=== PATIENT | female | born 1955 | race Caucasian/White ===

== ENCOUNTER → 2020-07-24 | Outpatient (CLI) | payer MEDICARE, BC, SELFPAY | END | disposition home or self-care (01) | PROVIDERS: PCP Internal Medicine; Referring Provider Otolaryngology Otolaryngology/Facial Plastic Surgery; Visit Provider Otolaryngology Otolaryngology/Facial Plastic Surgery | DX: J32.9 Chronic sinusitis, unspecified (principal) | CPT/HCPCS: 87070; 87077; 87186; 87205 ==

== ENCOUNTER → 2020-07-29 08:18 | Outpatient (CLI) | payer MEDICARE, BC, SELFPAY ==
[2020-07-29 10:43] LABS: ALB/GLOB Ratio 1.2 RATIO (0.9-2.4); AST(SGOT) 19 U/L (15-37); Alanine Aminotransfer ALT/SGPT 24 U/L (13-56); Albumin, Serum 3.6 g/dL (3.2-5.0); Alkaline Phosphatase 61 U/L (45-117); Anion Gap 6 (5-15); BUN 11 mg/dL (7-18); BUN/Creat Ratio 18.3 RATIO (10-20); Calcium,Total 9.1 mg/dL (8.5-10.1); Chloride 106 mmol/L (98-107); Cholesterol 173 mg/dL (200); EST Glomerular Filtration Rate 106 mL/min (>60); Est Glom Filt Rate - Afr Amer 129 mL/min (>60); Globulin 3.1 g/dL (2.2-4.2); Glucose 99 mg/dL (74-106); High Density Lipoprotein 59 mg/dL; Potassium 4.2 mmol/L (3.5-5.1); Protein, Total 6.7 g/dL (6.4-8.2); Sodium Level 140 mmol/L (136-145); Thyroid Stim Hormone (TSH) 1.33 uIU/mL (0.358-3.74); Triglycerides 151 mg/dL; Very Low Density Lipoprotein 30 mg/dL (5-40)
[2020-07-29 10:52] LABS: Microalbumin,Random Urine 10.3 mg/L (NO RANGE EST.); Microalbumin:Creatinine Ratio 9.3 mg/g CRE (<30 mg/g CRE)
== END ==
PROVIDERS: PCP Family Medicine; Referring Provider Family Medicine; Visit Provider Family Medicine
DX: I10 Essential (primary) hypertension (principal); F41.9 Anxiety disorder, unspecified; E78.00 Pure hypercholesterolemia, unspecified
CPT/HCPCS: 36415; 80053; 80061; 82043; 82570; 84443

== ENCOUNTER → 2021-01-19 11:19 | Outpatient (CLI) | payer MEDICARE, BC, SELFPAY ==
[2021-01-19 14:54] LABS: Absolute Lymphocyte Count 1.38 X10^3/uL (0.83-4.51); Basophil# 0.05 X10^3/uL; Eosinophil# 0.18 X10^3/uL; Eosinophils% 3.6 % (0-5); Hematocrit 39.2 % (37-47); Hemoglobin 13.2 g/dL (12.0-15.0); Lymphocyte # 1.38 X10^3/ul (0.83-4.51); Lymphocyte % 27.7 % (19-41); Mean Corp Hgb Conc 33.7 g/dL (32-36); Mean Corpuscular Hgb 29.6 pg (27.0-32.0); Mean Corpuscular Volume 87.9 fL (81-99); Mean Platelet Vol. 10.8 fl (6.2-12.0); Monocyte# 0.38 X10^3/uL; Monocyte% 7.6 % (0-10); NRBC Flagged by Analyzer 0 % (0-5); Neutrophil # 2.98 X10^3/uL (2.7-7.7); Neutrophil % 59.9 % (47-70); Platelet Count 256 K/mm3 (150-450); RBC Distribution Width CV 13.2 % (11.6-14.6); RBC Distribution Width SD 42.9 fl (35.1-43.9); Red Blood Count 4.46 M/mm3 (4.2-5.4)
[2021-01-19 15:13] LABS: ALB/GLOB Ratio 1.2 RATIO (0.9-2.4); AST(SGOT) 18 U/L (15-37); Alanine Aminotransfer ALT/SGPT 23 U/L (13-56); Alkaline Phosphatase 64 U/L (45-117); Anion Gap 5 (5-15); BUN 12 mg/dL (7-18); BUN/Creat Ratio 19.1 RATIO (10-20); Calcium,Total 9.2 mg/dL (8.5-10.1); Chloride 105 mmol/L (98-107); Creatinine, Serum 0.63 mg/dL (0.55-1.02); EST Glomerular Filtration Rate 101 mL/min (>60); Est Glom Filt Rate - Afr Amer 122 mL/min (>60); Globulin 3.4 g/dL (2.2-4.2); Glucose 95 mg/dL (74-106); Potassium 3.9 mmol/L (3.5-5.1); Protein, Total 7.4 g/dL (6.4-8.2); Sodium Level 138 mmol/L (136-145); Thyroid Stim Hormone (TSH) 0.76 uIU/mL (0.358-3.74)
== END ==
PROVIDERS: PCP Family Medicine; Referring Provider Family Medicine; Visit Provider Family Medicine
DX: L63.9 Alopecia areata, unspecified (principal)
CPT/HCPCS: 36415; 80053; 84443; 85025

== ENCOUNTER 2021-03-17 07:41 | Outpatient (CLI) | payer MEDICARE, BC, SELFPAY ==
[2021-03-17 10:39] LABS: AST(SGOT) 20 U/L (15-37); Alanine Aminotransfer ALT/SGPT 24 U/L (13-56); Alkaline Phosphatase 65 U/L (45-117); Bilirubin, Direct 0.19 mg/dL (0.00-0.30); CPK Total, Creatine Kinase 90 U/L (26-192); Cholesterol 253 mg/dL (200); Globulin 3.4 g/dL (2.2-4.2); High Density Lipoprotein 75 mg/dL; Protein, Total 7.4 g/dL (6.4-8.2); Triglycerides 105 mg/dL; Very Low Density Lipoprotein 21 mg/dL (5-40)
== END 2021-03-17 23:59 | disposition short-term general hospital (02) ==
LOC: MTLAB 07:44
PROVIDERS: PCP Family Medicine; Referring Provider Family Medicine; Visit Provider Family Medicine
DX: M79.10 Myalgia, unspecified site (principal); E78.00 Pure hypercholesterolemia, unspecified
CPT/HCPCS: 36415; 80061; 80076; 82550

== ENCOUNTER → 2022-03-03 | Outpatient (CLI) | payer MEDICARE, BC, SELFPAY | END | disposition home or self-care (01) | PROVIDERS: PCP Family Medicine; Visit Provider Internal Medicine | DX: G47.30 Sleep apnea, unspecified (principal); G47.10 Hypersomnia, unspecified; R53.83 Other fatigue | CPT/HCPCS: 95810 ==

== ENCOUNTER 2024-05-10 12:17 | Emergency (ER) | payer MEDICARE, SELFPAY ==
[2024-05-10 12:19] VITALS: BP 186/96; PULSE 89; RESP 16; TEMP 36.2; O2SAT 98
[2024-05-10 13:00] VITALS: O2SAT 99
--- NOTE | 2024-05-10 13:18 | ED.VIS.FALL ---
HPI HPI - Fall History of Present Illness Chief Complaint: Fall Informant: patient and spouse/S.O. Occured/Mechanism Occurred: Today Mechanism/Context: Yes same level fall and Yes slip Usually ambulates: Without assistance Pain/Injury Pain Location: head Quality of Pain: Dull and Aching Current Severity: Mild Maximum Severity: Moderate Associated Symptoms Associated Symptoms: Negative for Parasthesias, Weakness, Loss of function, Inability to ambulate, Loss of consciousness or Amnesia Narrative Narrative: 68-year-old female history of anxiety. Was outside slipped on the ice fell backwards striking back of her head. No LOC. She is on no blood thinners not even aspirin. Denies any other complaints. Has a mild headache. No nausea. This occurred just over an hour ago. Prior similar symptoms: No Recent Illness/Hospitalization: No PFSH PFSH Allergy/AdvReac Type Severity Reaction Status Date / Time No Known Allergies Allergy Verified 05/10/24 12:19 Social History household members: spouse housing: house Smoking Status: Never smoker ROS ROS ED ROS Narrative Denies recent illness. Headache post fall. Denies nausea or vomiting. Constitutional Constitutional ED: Denies chills or fever(s) ENT ENT ED: Denies ear pain Cardiovascular Cardiovascular: Denies chest pain Respiratory/Chest Respiratory/Chest: Denies cough Gastrointestinal Gastrointestinal: Denies abdominal pain, nausea or vomiting Genitourinary Genitourinary ED: Denies dysuria or hematuria Musculoskeletal Musculoskeletal: Denies arthralgias, back pain or neck pain Integumentary Denies abscess or Abrasions Neurologic Neurologic: Reports headache(s) Psychiatric Psychiatric: Denies anxiety Endocrine Endocrinology: Denies polydipsia Hematologic/Lymphatic Hematologic/Lymphatic: Denies easy bleeding, easy bruising or lymphadenopathy Allergic/Immunologic Allergic/Immunologic ED: Denies mouth swelling, tongue swelling or urticaria EXAM Physical Exam Narrative Exam Narrative: Well-appearing 68-year-old female sitting upright in bed. at bedside. Vital signs are stable afebrile. She does not look septic toxic or any distress. H EENT exam pupils round reactive light. Extra motions are intact. No facial droop. Moist mucous membranes. No trauma to her face. Posterior scalp there is a half dollar sized hematoma. No laceration. No blood or bleeding. Neck nontender. Trachea midline. C-spine nontender. Back and thoracic and lumbar spine nontender no bruising. Chest wall and ribs nontender. Lungs clear equal and symmetrical bilaterally. Heart regular rhythm rate about 90 no murmur. Abdomen soft nontender. Pelvic girdle intact. Hips are nontender. No shortening or rotation. Normal reporting process consultant strength. Normal dorsi plantarflexion. Normal flexion extension both upper and lower extremities. Neurologically she is awake and alert no focal motor deficits. Answer questions following commands. GCS of 15. Const Vital Signs: 05/10/24 12:19 05/10/24 13:00 Temperature 97.1 F L Temperature Source Oral Pulse Rate 89 Respiratory Rate 16 Respiratory Effort Normal Non-Labored Respiratory Depth Normal Respiratory Pattern Normal Blood Pressure 186/96 H Blood Pressure Mean 126 Pulse Ox 98 99 Oxygen Delivery Method Room Air Room Air Positive well nourished and well developed; Negative for obese, cachectic, contractures or unkempt General Appearance ED: well developed and NAD; Negative for unkempt, cachectic or contractures Nutritional Appearance: Negative for cachectic or obese HEENT Reports normocephalic HEENT Narrative: Contusion posterior scalp size of a half dollar. No laceration. No blood or bleeding. Tender. trauma, contusion, hematoma and tenderness; Negative for atraumatic Eyes PERRL and EOMs intact bilaterally General Eye ED: Negative for pale conjunctiva or scleral icterus Neck full ROM, no lymphadenopathy and supple General: Negative for tenderness Chest Wall inspection of chest normal and palpation of chest normal Resp normal respiratory effort, no retractions and clear to auscultation bilaterally Effort and Inspection: Negative for pain with movement Auscultation: Negative for rales, rhonchi, wheezes, diminished lung sounds or other Cardio regular rate, regular rhythm, S1 normal heart sound, S2 normal heart sound and no murmurs Rate: Negative for bradycardia or tachycardic Rhythm: Negative for abnormal rhythm Bruits: Negative for other GI non-tender, non-distended and no masses Inspection: Negative for abdominal distention Auscultation: normoactive bowel sounds Palpation: soft; Negative for guarding or rebound tenderness present Back/Spine no CVA tenderness General Back: Negative for CVA tenderness Cervical Spine: Negative for cervical spine tenderness Lumbar Spine / Lower Back: Negative for lumbar spinal tenderness or paraspinal muscle tenderness Neuro oriented x3, CN's II-XII intact bilaterally, moves all extremities, no focal motor deficits and no sensory deficits noted [place] Coma Scale: document GCS findings Spontaneous Obeys Commands Oriented 15 Sensorium / Orientation: alert, oriented to person, oriented to place and oriented to time; Negative for orientation impaired, confused, lethargic or stuporous Motor Exam: strength 5/5 throughout Psych mental status grossly normal and thought process normal Appearance: Negative for unkempt Mood & Affect: anxious Skin Lesions: no lesions Rashes: no rashes Trauma: Negative for abrasion or laceration MDM MDM MDM Narrative Medical decision making narrative: 68-year-old female slipped and fell on the ice. She is neurologically intact. She is not on blood thinners. She had no LOC. However she does have a moderate-sized hematoma on her posterior scalp. She will get Tylenol for headache and I am going to obtain a plain CAT scan. She has no other injuries no other pain at home think she needs any other CAT scan or x-rays to be done. Repeat exam patient is doing well. We discussed her CAT scan results and she will be discharged home head injury instructions. History & Record Review Discussion w/independent historian: Patient and Family Additional record(s) reviewed:: Prior inpatient record, Prior outpatient record, Prior ED visit and Prior labs Radiography Diagnostic Testing: Clinical Impression(s) from Imaging Studies Brain CT 05/10/24 13:30 IMPRESSION: 1. No acute intracranial abnormalities are demonstrated. Reading Location: [place] [address] Discharge Plan Triage Chief Complaint: Fall ED Provider: Kartik Bello Dx/Rx/DC Orders Clinical Impression: Fall, Closed head injury Instructions: ED Head Injury (Adult) Primary Care Provider: Claudine Scott Referrals: Claudine Scott MD [Primary Care Provider] - 1 Week if not improving Activity Restrictions/Additional Instructions: Ice to your scalp to decrease the pain and swelling Tylenol for pain. You have a close head injury most likely a mild concussion. You may have some intermittent headaches. Dizziness. You may want to sleep more or have trouble sleeping. All those are postconcussion symptoms. Those should progressively get better and improve the next several weeks. If you would get a severe headache with vomiting you need to return for further evaluation. Print Language: Tongan Disposition Disposition: Home, Self Care
[2024-05-10] MEDS: Acetaminophen 500 MG Tablet 1000 MG PO (13:26)
--- NOTE | 2024-05-10 13:30 | CT_ITS ---
EXAM: BRAIN/HEAD WITHOUT CONTRAST CLINICAL HISTORY: Head trauma. COMPARISON: No relevant prior. TECHNIQUE: Contiguous axial scans of 3.75 mm slice thicknesses with sagittal and coronal reconstruction images. One or more dose reduction techniques were utilized (e.g., automated exposure control, adjustment of mA and/or kv according to patient size, use of iterative reconstruction technique). FINDINGS: Cerebrum: No intraparenchymal hemorrhage. No abnormal areas of encephalomalacia. No mass effect or midline shift. Fontana-white matter differentiation is normal. Ventricles and cisterns: Appropriate size for patient's age. Extra-axial fluid: Unremarkable. Posterior fossa: Unremarkable cerebellum. No abnormalities involving the brainstem. Paranasal sinuses: Normal. Vasculature: Atherosclerotic calcific disease in the carotid siphon. Mastoid air cells: Normal. Calvarium: Unremarkable. Soft tissues: Unremarkable. CT/Brain/Head without Contrast IMPRESSION: 1. No acute intracranial abnormalities are demonstrated. Reading Location: [place] [id number]
[2024-05-10 15:30] VITALS: BP 138/89; PULSE 78; RESP 16; TEMP 36.6; O2SAT 99
== END 2024-05-10 15:32 | disposition home or self-care (01) ==
PROVIDERS: Emergency Provider Emergency Medicine; PCP Internal Medicine; Visit Provider Emergency Medicine
DX: S09.90XA Unspecified injury of head, initial encounter (principal); F41.9 Anxiety disorder, unspecified; W00.0XXA Fall on same level due to ice and snow, initial encounter
CPT/HCPCS: 70450; 99283

== ENCOUNTER 2024-12-06 15:22 | Emergency (ER) | payer MEDICARE, SELFPAY ==
[2024-12-06 15:23] VITALS: BP 168/89; PULSE 60; RESP 22; TEMP 36.3; O2SAT 98; BMI 23.2
--- NOTE | 2024-12-06 15:39 | EDS_ITS ---
HPI History of Present Illness Chief Complaint: General Illness Informant: patient Onset/Context/Timing Onset: Days (9) Context: Gradual Onset Timing: Continuous Quality: Fatigue, weakness Location: Generalized Worsened by: Activity, exertion Relieved by: Nothing Narrative Narrative: Patient presents with increasing fatigue and weakness over the past 9 days. Patient states she went on a cruise with her sister. Patient states her sister was recently diagnosed with COVID-19. Patient states she has some upper respiratory congestion. Patient admits to some rhinorrhea. Patient denies any chest pain or shortness of breath. Patient admits to a slight cough. Patient states nothing makes her symptoms better. Patient states her symptoms are worse with activity and exertion. [facility] Medical History (Updated 12/06/24 @ 17:[address] Apolinar Finley DO) Hypercholesterolemia Home Medications ?Medication ?Instructions ?Recorded ?Last Taken ?Type azithromycin 250 mg tablet 250 mg PO DAILY #4 TABLETS 12/06/24 Unknown Rx cefdinir 300 mg capsule 300 mg PO BID #20 caps 12/06 Unknown Rx Allergy/AdvReac Type Severity Reaction Status Date / Time No Known Allergies Allergy Verified 12/06/24 15:23 Surgical History no surgical history no surgical history Social History household members: spouse housing: house Smoking Status: Never smoker ROS ROS ED Constitutional Constitutional ED: Denies chills or fever(s) Eyes Eyes: Denies blurry vision or change in vision ENT ENT ED: Reports rhinorrhea and sore throat Cardiovascular Cardiovascular: Denies chest pain or palpitations Respiratory/Chest Respiratory/Chest: Denies cough or dyspnea Gastrointestinal Gastrointestinal: Denies nausea or vomiting Genitourinary Genitourinary ED: Denies dysuria or hematuria Musculoskeletal Musculoskeletal: Denies back pain or neck pain Integumentary Denies abscess or rash Neurologic Neurologic: Reports headache(s); Denies weakness Allergic/Immunologic Allergic/Immunologic ED: Denies mouth swelling or urticaria EXAM Physical Exam Const Vital Signs: 12/06/24 15:23 12/06/24 15:35 Temperature 97.4 F L Temperature Source Temporal Pulse Rate 60 Respiratory Rate 22 H Respiratory Effort Normal Respiratory Pattern Normal Blood Pressure 168/89 H Blood Pressure Mean 115 Pulse Ox 98 Oxygen Delivery Method Room Air Positive well nourished and well developed General Appearance ED: well developed and NAD HEENT Reports moist mucous membranes HEENT Narrative: Oropharynx shows some mild postnasal drainage. There is no exudate noted on the tonsils. Neck supple and no JVD Resp normal respiratory effort and clear to auscultation bilaterally Cardio regular rate and regular rhythm GI non-tender and non-distended Palpation: soft Neuro oriented x3, CN's II-XII intact bilaterally and no sensory deficits noted Sensorium / Orientation: alert Motor Exam: strength 5/5 throughout Psych mental status grossly normal MDM MDM MDM Narrative Medical decision making narrative: Differential diagnosis includes COVID-19, influenza, RSV, other viral illness, pneumonia, and bronchitis. Chest x-ray will be obtained to assess for pneumonia or bronchitis. COVID-19, influenza, and RSV PCR will be obtained to assess for viral illness. Lab Data Attestation: I reviewed the patient's lab results. Lab results narrative: COVID-19 PCR was reviewed and was negative. Influenza PCR was reviewed and was negative for influenza A and influenza B. RSV PCR was reviewed and was negative. Radiography Chest X-Ray - ED: 2 View, Read by ED Physician, Read by Radiologist and Right Infiltrate Diagnostic Testing: Clinical Impression(s) from Imaging Studies Chest X-Ray 12/06/24 16:00 IMPRESSION: Right basilar patchy opacity concerning for underlying infectious/inflammatory process. Correlate clinically Reading Location: [facility] and lateral chest x-ray was obtained. There are 2 views. On my independent interpretation, lung bonilla show a right basilar opacity concerning for pneumonia. There is normal cardiac silhouette. Bony thorax is normal. Radiologist also interpreted the x-ray and agrees. Treatment and Re-Evaluation :: Patient was advised of her findings. Patient was given a dose of cefdinir and Zithromax here. Patient given prescriptions for cefdinir and Zithromax. Patient was instructed to follow-up with her primary care physician in 5 to 7 days. Patient understood and was agreeable with the plan. All questions were answered. Discharge Plan Triage Chief Complaint: General Illness ED Provider: Apolinar Finley Dx/Rx/DC Orders Clinical Impression: Pneumonia, Elevated blood pressure reading Instructions: ED Pneumonia (Adult) Prescriptions: New azithromycin 250 mg tablet 250 mg PO DAILY Qty: 4 0RF cefdinir 300 mg capsule 300 mg PO BID Qty: 20 0RF Primary Care Provider: Claudine Scott Referrals: Claudine Scott MD [Primary Care Provider, Internal Medicine] - 5-7 Days Print Language: Sinhala Disposition Disposition: Home, Self Care
--- NOTE | 2024-12-06 16:00 | RAD_ITS ---
PROCEDURE: CHEST PA AND LATERAL 12/06/2024 REASON FOR EXAM: COUGH TECHNIQUE: Procedure Code: RADCXR Modality: DX Procedure: CHEST PA AND LATERAL COMPARISON: None FINDINGS: Heart: The heart size is normal. Mediastinum: The mediastinal contour is unremarkable. Lungs: Right basilar patchy opacity concerning for underlying infectious/inflammatory process. Bones: Degenerative changes of visualized spine. RAD/Chest PA and Lateral IMPRESSION: Right basilar patchy opacity concerning for underlying infectious/inflammatory process. Correlate clinically Reading Location: [id number]
[2024-12-06 17:23] VITALS: BP 165/83; PULSE 50; RESP 16; O2SAT 100
[2024-12-06 17:56] VITALS: BP 165/83; PULSE 50; RESP 16; TEMP 37.2; O2SAT 100
== END 2024-12-06 18:00 | disposition home or self-care (01) ==
PROVIDERS: Emergency Provider Emergency Medicine; PCP Internal Medicine; Visit Provider Emergency Medicine
DX: J18.9 Pneumonia, unspecified organism (principal); R03.0 Elevated blood-pressure reading, without diagnosis of hypertension; E78.00 Pure hypercholesterolemia, unspecified; R51.9 Headache, unspecified
CPT/HCPCS: 71046; 87631; 99283

== ENCOUNTER 2024-12-09 08:28 | Emergency (ER) | payer MEDICARE, SELFPAY ==
[2024-12-09 08:29] VITALS: BP 132/70; PULSE 66; RESP 19; TEMP 36.8; O2SAT 99; BMI 23.1
--- NOTE | 2024-12-09 08:34 | ED.RN ---
pt walks up to this rn in triage, states i was seen here tuesday and diagnosed with pneumonia, i waas given these antibiotics and the one gives me really bad diarrhea. what should i do? this rn asked pt if she called her primary care doctor. pt laughs , throws hands in the air and states yeah so its tuesday? darrick angeles rn was standing next to this rn and darrick watson stated most pcp offices have an demolitionist nurse you can contact. pt became very tearful and appeared frustrated. darrick rn states we will be more than happy to see check you in but sometimes it is worth calling them first because they can prescribe you a new antibiotic without going through an entire er visit . pt states fine i will just call them forget it . pt is frustrated and looking for phone. this rn stands up and asks pt to step on scale so this rn can being triage process. pt is still crying and not listening to this rn. darrick rn asks pt to step on scale. pt steps on scale and this rn begins triage process. while asking pt triage questions pt is upset with the redundant questions pt states i was literally just here. look it up. this rn educated pt on triage process and meaning of a new er visit. pt is now refusing to speak to this nurse. triage finished appropriately. pt walked back by pasquale lo.
--- NOTE | 2024-12-09 08:38 | EX.ED.DYSGE1 ---
HPI History of Present Illness Chief Complaint: Meds Only Informant: patient Onset/Context/Timing Onset: Days (2) Context: Gradual Onset Timing: Continuous Quality: Watery Location: Diarrhea Worsened by: Eating Relieved by: Nothing Narrative Narrative: Patient presents with diarrhea that began 2 days ago. Patient was seen here 3 days ago and was given prescriptions for cefdinir and Zithromax for community-acquired pneumonia. Patient states she started taking the antibiotics and developed watery diarrhea. Patient denies any nausea or vomiting. Patient denies any fevers or chills. Patient denies any melena or hematochezia. Patient states she has been able to tolerate fluids. Patient states that every time she tries to eat anything she develops the diarrhea. Patient states otherwise she feels fine. Patient states that she thinks she just needs a different antibiotic that will not cause diarrhea. [facility] Medical History Hypercholesterolemia Home Medications ?Medication ?Instructions ?Recorded ?Last Taken ?Type doxycycline monohydrate 100 mg 100 mg PO BID #16 CAPSULES 12/09/24 Unknown Rx capsule Allergy/AdvReac Type Severity Reaction Status Date / Time No Known Allergies Allergy Verified 12/09/24 08:33 Social History household members: spouse housing: house Smoking Status: Never smoker ROS ROS ED Constitutional Constitutional ED: Denies chills or fever(s) Gastrointestinal Gastrointestinal: Reports diarrhea; Denies abdominal pain, nausea or vomiting Genitourinary Genitourinary ED: Denies dysuria or hematuria Musculoskeletal Musculoskeletal: Denies back pain or neck pain Neurologic Neurologic: Denies weakness EXAM Physical Exam Const Vital Signs: 12/09/24 08:29 12/09/24 09:00 Temperature 98.2 F 98.2 F Temperature Source Oral Pulse Rate 66 66 Respiratory Rate 19 H 16 Blood Pressure 132/70 H 128/70 H Blood Pressure Mean 90 89 Pulse Ox 99 99 Oxygen Delivery Method Room Air Positive well nourished and well developed General Appearance ED: well developed and NAD HEENT Reports moist mucous membranes Neck supple and no JVD Resp normal respiratory effort Auscultation: rhonchi left lower and right lower Cardio regular rate and regular rhythm GI non-tender and non-distended Palpation: soft Neuro oriented x3, CN's II-XII intact bilaterally and no sensory deficits noted Sensorium / Orientation: alert Motor Exam: strength 5/5 throughout Psych mental status grossly normal MDM MDM MDM Narrative Medical decision making narrative: Patient states that she feels fine other than the watery diarrhea. Patient states she just feels that she needs her antibiotics changed. Patient does not feel like she is dehydrated. Clinically, the patient does not look dehydrated. Patient has no abdominal tenderness. Patient was advised that this is likely a side effect from the antibiotics. Patient was instructed to stop the cefdinir and Zithromax. Patient was given a prescription for doxycycline. Patient was instructed to follow-up with her primary care physician in 5 to 7 days. Patient was instructed to return if worse in any way. Patient was instructed to drink plenty of fluids. Patient understood and was agreeable with the plan. All questions were answered. History & Record Review Additional record(s) reviewed:: Prior ED visit and Prior labs Discharge Plan Triage Chief Complaint: Meds Only ED Provider: Apolinar Finley Dx/Rx/DC Orders Clinical Impression: Pneumonia, Elevated blood pressure reading Instructions: ED Pneumonia (Adult) Prescriptions: New doxycycline monohydrate 100 mg capsule 100 mg PO BID Qty: 16 0RF Discontinued azithromycin 250 mg tablet 250 mg PO DAILY Qty: 4 0RF cefdinir 300 mg capsule 300 mg PO BID Qty: 20 0RF Primary Care Provider: Claudine Scott Referrals: Claudine Scott MD [Primary Care Provider, Internal Medicine] - 3-5 Days Activity Restrictions/Additional Instructions: Stop taking the azithromycin and cefdinir. Take doxycycline twice daily as prescribed. You may still continue to have some diarrhea for the next few days. This should improve. If this does not improve, or if you start to feel dehydrated, please return to the emergency department. Print Language: Hong Konger Disposition Disposition: Home, Self Care Discharge Date/Time: 12/09/24 09:03
--- OUTSIDE RECORDS SUMMARY | 2024-12-09 08:51 | XMS RPT_ITS | CCD ---
Author Organization [facility] Care Team Providers Care Patient Admitting Representative Name Role Phone Lennox MORGAN, Micah Primary Care Provider Unavailab arnav High MD, Micah Primary Care Provider Kendra Orellana PA-C Unavailable [phone] Older CORPORATE CONTROLLER.DIE TECHNICIAN, Ladi Unavailable Jeri Jansen PA-C Unavailable LIZA PATRICIO Attending Unavailable KELSEA, KARMON Referring Unavailable GANTA, MICAH Primary Care Unavailable LIZA PATRICIO Attending Unavailable KELSEA, KARMON Referring Unavailable GANTA, MICAH Primary Care Unavailable PAULETRLIZA Donahue Attending Unavailable KELSEA, KARMON Referring Unavailable GANTA, MICAH Primary Care Unavailable PAULETRGodfrey LIZA M Attending Unavailable KELSEA, KARMON Referring Unavailable GANTA, MICAH Primary Care Unavailable PAULETRGodfrey LIZA M Attending Unavailable KELSEA, KARMON Referring Unavailable GANTA, MICAH Primary Care Unavailable DEMETRO LIZA M Attending Unavailable KELSEA, KARMON Referring Unavailable GANTA, MICAH Primary Care Unavailable DEMETRLIZA Donahue M Attending Unavailable KELSEA, KARMON Referring Unavailable GANTA, MICAH Primary Care Unavailable Kartik Bello Attending Unavailable Ganta, Micah Primary Care Unavailable Ganta Dr. Micah MORGAN Primary Care Provider Dr. Kartik Bello MD Emergency Provider [phone] GANTA, MICAH Referring Unavailable GANTA, MICAH Primary Care Unavailable LEONARD PARMAR Attending Unavailable GANTA, MICAH Referring Unavailable GANTA, MICAH Primary Care Unavailable GANTA, MICAH Referring Unavailable DARRYL CARDENAS Attending Unavailable GANTA, MICAH Primary Care Unavailable GANTA, MICAH Primary Care Unavailable GANTA, MICAH Attending Unavailable GANTA, MICAH Primary Care Unavailable VASILE MARI Attending Unavailable GANTA, MICAH Primary Care Unavailable GANTA, MICAH Attending Unavailable OLDER, LADI Referring Unavailable GANTA, MICAH Primary Care Unavailable GANTA, MICAH Attending Unavailable GANTA, MICAH Referring Unavailable GANTA, MICAH Primary Care Unavailable GANTA, MICAH Primary Care Unavailable GANTA, MICAH Attending Unavailable STUART ROJAS Attending Unavaila ble GANTA, MICAH Primary Care Unavailable GANTA, MICAH Primary Care Unavailable GANTA, MICAH Attending Unavailable GANTA, MICAH Primary Care Unavailable TESTRAKE, MICHEAL Referring Unavailable GANTA, MICAH Primary Care Unavailable TESTRAKE, MICHEAL Attending Unavailable TESTRAKE, MICHEAL Referring Unavailable GANTA, MCIAH Primary Care Unavailable GANTA, MICAH Referring Unavailable GANTA, MICAH Primary Care Unavailable GANTA, MICAH Referring Unavailable GANTA, MICAH Primary Care Unavailable RONALDDARRYL Attending Unavailable GANTA, MICAH Referring Unavailable GANTA, MICAH Primary Care Unavailable GANTA, MICAH Referring Unavailable RONALD, DARRYL Attending Unavailable GANTA, MICAH Primary Care Unavailable GANTA, MICAH Referring Unavailable RONALDDARRYL Attending Unavailable GANTA, MICAH Primary Care Unavailable GANTA, MICAH Referring Unavailable RONALD, DARRYL Attending Unavailable GANTA, MICAH Primary Care Unavailable GANTA, MICAH Referring Unavailable GANTA, MICAH Primary Care Unavailable RONALD, DARRYL Attending Unavailable GANTA, MICAH Referring Unavailable GANTA, MICAH Primary Care Unavailable RONALDDARRYL Attending Unavailable GANTA, MICAH Referring Unavailable RONALD, DARRYL Attending Unavailable GANTA, MICAH Primary Care Unavailable GANTA, MICAH Referring Unavailable GANTA, MICAH Primary Care Unavailable LEONARD PARMAR Attending Unavailable GANTA, MICAH Referring Unavailable GANTA, MICAH Primary Care Unavailable RONALDDARRYL Attending Unavailable GANTA, MICAH Referring Unavailable RONALDDARRYL Attending Unavailable GANTA, MICAH Primary Care Unavailable GANTA, MICAH Referring Unavailable GANTA, MICAH Primary Care Unavailable GANTA, MICAH Referring Unavailable GANTA, MICAH Primary Care Unavailable RONALD, DARRYL Attending Unavailable GANTA, MICAH Referring Unavailable GANTA, MICAH Primary Care Unavailable DARRYL CARDENAS Attending Unavailable STUART ROJAS Attending Unavaila ble GANTA, MICAH Primary Care Unavailable GANTA, MICAH Referring Unavailable GANTA, MICAH Primary Care Unavailable RONALDDARRYL Attending Unavailable GANTA, MICAH Referring Unavailable RONALDDARRYL Attending Unavailable GANTA, MICAH Primary Care Unavailable MICAH HIGH Referring Unavailable DARRYL CARDENAS Attending Unavailable MICAH HIGH Primary Care Unavailable MICAH HIGH Referring Unavailable DARRYL CARDENAS Attending Unavailable MICAH HIGH Primary Care Unavailable MICAH HIGH Referring Unavailable DARRYL CARDENAS Attending Unavailable MICAH HIGH Primary Care Unavailable Lennox MORGAN, Dr. Chow Primary Care Physician [phone] Dr. Apolinar Finley DO Emergency Department Physi [facility] [place] Allergies Allergy Classification Reported Allergen(s) Allergy Type Date of Onset Reaction(s) Facility (20 sources) Mold Extract; Translations: [MOLD] Drug Allergy 11-23-2005 [facility] (20 sources) Propolis; Translations: [PROPOLIS (BEE GLUE)] Drug Allergy 07-22-2008 [facility] Work Phone: (20 sources) Allergen [id number] Bee; Translations: [ALLERGEN [id number] BEE] Propensity to adverse reactions 10-28-2006 [facility] Work Phone: (20 sources) Seasonal [Other] Propensity to adverse reactions 04-16-2005 [facility] Work Phone: Medications Current Medications Medication Drug Class(es) Dates Sig (Normalized) Sig (Original) amoxicillin 875 mg / clavulanate 125 mg oral tablet (1 source) Penicillin-class Antibacterial Start: 04-26-2023 End: 05-03-2023 take 1 tablet by mouth twice daily amoxicillin-clavu lanate potassium (AUGMENTIN) 875-125 mg per tablet Take 1 tablet by mouth two times a day for 7 days. 14 tablet 0 04/26/2023 05/03/2023 Active Comment on above: Take 1 tablet by syl two times a day for 7 days. azithromycin 250 mg oral tablet (1 source) Macrolide Antimicrobial Start: 12-06-2024 take 1 tablet by mouth once daily cefdinir 300 mg oral capsule (1 source) Cephalosporin Antibacterial Start: 12-06-2024 take 1 capsule by mouth twice daily cephalexin 500 mg oral capsule (1 source) Cephalosporin Antibacterial Start: 12-14-2021 End: 12-19-2021 take 1 capsule by mouth four times daily cephALEXin (KEFLEX) 500 mg capsule Take 1 capsule by mouth four times daily for 5 days. 20 capsule 0 12/14/2021 12/19/2021 Active Comment on above: Take 1 capsule by mo [facility] four times daily for 5 days. donepezil hydrochloride 5 mg oral tablet (7 sources) Start: 08-29-2024 take 1 tablet by mouth once daily after breakfast donepezil (ARICEPT) 5 mg tablet Take 1 tablet by mouth daily after breakfast. 30 tablet 2 08/29/2024 Active doxycycline monohydrate 100 mg oral capsule (14 sources) Tetracycline-class Drug Start: 12-28-2023 End: 12-28-2023 take 2 capsules by mouth once doxycycline monohydrate (MONODOX) 100 mg capsule Indications: Tick bite of neck, initial encounter Take 2 capsules by mouth one time only for 1 dose. 2 capsule 12/28/2023 12/28/2023 Active Start: 08-23-2023 End: 12-28-2023 doxycycline hyclate (VIBRAMY YONATHAN) 100 mg capsule Take 100 mg by mouth. 08/23/2023 12/28/2023 Discontinued Start: 04-03-2023 End: 04-08-2023 take 1 tablet by mouth twice daily doxycycline monohydrate 100 mg tablet Take 1 tablet by mouth two times a day for 5 days. 10 tablet 0 04/03/2023 04/08/2023 Active Start: 08-21-2022 End: 08-21-2022 take 2 capsules by mouth once doxycycline monohydrate (MONODOX) 100 mg capsule Take 2 capsules by mouth one time only for 1 dose. 2 capsule 0 08/21/2022 08/21/2022 Active Comment on above: Take 2 capsules by m out one time only for 1 dose. Take 1 tablet by syl two times a day for 5 days. ezetimibe 10 mg oral tablet (20 sources) Dietary Cholesterol Absorption Inhibitor Start: 02-17-2022 End: 04-11-2023 ezetimibe (ZETIA) 10 mg tablet take 1 tablet daily 90 tablet 3 04/11/2023 Active Start: 12-05-2021 End: 02-15-2022 take 1 tablet by mouth once daily ezetimibe (ZETIA) 10 mg tablet Take 1 tablet by mouth once daily. 30 tablet 3 12/05/2021 02/15/2022 Discontinued Comment on above: Take 1 tablet by syl th once daily. take 1 tablet daily finasteride 1 mg oral tablet (20 sources) 5-alpha Reductase Inhibitor Start: 09-20-19 take 1 tablet by mouth once finasteride (PROPECIA) 1 mg tablet Take 1 tablet by mouth every afternoon. 09/20/2023 Active fluticasone propionate 0.05 mg/actuat metered dose nasal spray (20 sources) Corticosteroid Start: 02-12-20 End: 09-26-19 take 2 spray(s) by mouth once daily fluticasone (FLONASE) 50 mcg/actuation nasal spray Indications: COVID-19 virus infection Use 2 Sprays in each nostril once daily. Rinse mouth after use. 1 Each 02/08/2023 Active Comment on above: Use 2 Sprays in each nostril once daily. Rinse mouth after use. lisinopril 5 mg oral tablet (20 sources) Angiotensin Converting Enzyme Inhibitor Start: 02-12-20 End: 06-20-19 take 1 tablet by mouth once daily lisinopril (ZESTRIL) 5 mg tablet Indications: Essential hypertension Take 1 tablet by mouth once daily. 90 tablet 3 06/20/2023 Active Comment on above: Take 1 tablet by syl th once daily. LORazepam 0.5 mg oral tablet (20 sources) Benzodiazepine Start: 11-08-19 End: 11-15-19 take 1 tablet by mouth three times daily as needed LORazepam (ATIVAN) 0.5 mg Indications: Panic attack , Claustrophobia Take 1 tablet by mouth three times a day as needed for up to 7 days. 21 tablet 11/07/2024 11/14/2024 Active Start: 08-21-2024 End: 08-28-2024 take 1 tablet by mouth three times daily as needed LORazepam (ATIVAN) 0.5 mg Indications: Panic attack , Claustrophobia Take 1 tablet by mouth three times a day as needed for up to 7 days. 21 tablet 08/21/2024 08/28/2024 Active Start: 10-28-2021 End: 05-08-2024 take 1 tablet by mouth three times daily as needed LORazepam (ATIVAN) 0.5 mg Indications: Panic attack , Claustrophobia Take 1 tablet by mouth three times a day as needed for up to 7 days. 21 tablet 05/01/2024 05/08/2024 Active Comment on above: Take 1 tablet by syl th three times daily as needed (anxiety) for up to 180 days. meloxicam 15 mg oral tablet (20 sources) Nonsteroidal Anti-inflammatory Drug Start: 08-29-2024 End: 11-27-2024 take 1 tablet by mouth once daily meloxicam (MOBIC) 15 mg tablet Indications: Acquired hallux valgus of right foot , Hallux rigidus of right foot Take 1 tablet by mouth once daily. 30 tablet 2 08/29/2024 11/27/2024 Active Start: 02-07-2024 End: 03-08-2024 take 1 tablet by mouth once daily meloxicam (MOBIC) 15 mg tablet Indications: Acquired hallux valgus of right foot , Hallux rigidus of right foot Take 1 tablet by mouth once daily. 30 tablet 1 02/07/2024 03/08/2024 Active Start: 02-19-2020 End: 10-28-2021 take 1 tablet by mouth once daily meloxicam (MOBIC) 15 mg tablet Take 1 tablet by mouth once daily. 30 tablet 1 02/19/2020 10/28/2021 Discontinued Comment on above: Take 1 tablet by syl th once daily. minoxidil 2.5 mg oral tablet (20 sources) Arteriolar Vasodilator Start: 06-05-2024 take 0.25 tablet by mouth once daily minoxidil (LONITEN) 2.5 mg tablet Take 2.5 mg by mouth once daily. Taking 1/4 tablet daily 06/05/2024 Active Start: 09-20-2023 End: 02-21-2024 minoxidil (LONITEN) 2.5 mg t ablet take 1/4 OF a tablet EVERY DAY 09/20/2023 02/21/2024 Discontinued nirmatrelvir tablet 300 mg (150 mg x 2) and ritonavir tablet 100 mg in a dose pack (PAXLOVID) (1 source) Start: 02-08-2023 End: 02-13-2023 nirmatrelvir tablet 300 mg (150 mg x 2) and ritonavir tablet 100 mg in a dose pack (PAXLOVID) Indications: COVID-19 virus infection Administer TWO pink nirmatrelvir 150 mg tablets and ONE white ritonavir 100 mg tablet for a total of three tablets twice daily. 30 tablet 0 02/08/2023 02/13/2023 Active Comment on above: Administer TWO pink nirmatrelvir 150 mg tablets and ONE white ritonavir 100 mg tablet for a total of three tablets twice daily. predniSONE 20 mg oral tablet (2 sources) Start: 08-19-2023 End: 08-24-2023 take 2 tablets by mouth once daily predniSONE (DELTASONE) 20 mg tablet Indications: Subacute cough Take 2 tablets by mouth once daily for 5 days. 10 tablet 0 08/19/2023 08/24/2023 Active Start: 04-03-2023 End: 04-07-2023 take 1 tablet by mouth once daily at mealtime predniSONE (DELTASONE) 20 mg tablet Take 1 tablet by mouth once daily for 4 days. Take daily with food. 4 tablet 0 04/03/2023 04/07/2023 Active Comment on above: Take 1 tablet by syl th once daily for 4 days. Take daily with food. sertraline 50 mg oral tablet (20 sources) Serotonin Reuptake Inhibitor Start: 06-05-2024 sertraline (ZOLOFT) 50 mg tablet Indications: Anxiety and depression Take 1 tablet by mouth once daily. Start with half a pill for a week and then go to a full pill 90 tablet 3 06/05/2024 Active Start: 11-10-2022 End: 06-05-2024 sertraline (ZOLOFT) 100 mg t ablet Indications: Anxiety take 1 tablet daily 90 tablet 3 04/21/2023 06/05/2024 Discontinued Start: 02-12-2020 End: 11-10-2022 take 1 tablet by mouth once daily sertraline (ZOLOFT) 50 mg tablet Indications: Anxiety Take 1 tablet by mouth once daily. 90 tablet 3 10/28/2021 08/16/2022 Discontinued Comment on above: Take 1 tablet by syl th once daily. take 1 tablet daily tacrolimus 0.001 mg/mg topical ointment (20 sources) Calcineurin Inhibitor Immunosuppressant Start: 07-25-2023 tacrolimus (PROTOPIC) 0.1 % ointment Apply to affected area two times a day. 07/25/2023 Active Completed/Discontinued Medications Medication Drug Class(es) Dates Sig (Normalized) Sig (Original) benzonatate 100 mg oral capsule (6 sources) Non-narcotic Antitussive Start: 08-19-2023 End: 09-26-2023 take 2 capsules by mouth every eight hours as needed for cough and cough benzonatate (TESSALON PERLE) 100 mg capsule Indications: Subacute cough Take 2 capsules by mouth three times a day as needed. 30 capsule 0 08/19/2023 09/26/2023 Discontinued Start: 02-08-2023 End: 04-03-2023 take 1-2 capsules by mouth three times daily as needed for cough benzonatate (TESSALON PERLES) 100 mg capsule Indications: COVID-19 virus infection Take 1-2 capsules by mouth three times a day as needed for cough. 60 capsule 1 02/08/2023 04/03/2023 Discontinued Comment on above: Take 1-2 capsules by mouth three times a day as needed for cough. [id number] 0.3 ml EPINEPHrine 1 mg/ml auto-injector (20 sources) alpha-Adrenergic Agonist, beta-Adrenergic Agonist, Catecholamine Start: End: inject 0.3 mL by intramuscular injection once EPINEPHrine (EPIPEN) 0.3 mg/0.3 mL auto-injector Indications: H/O bee sting allergy Inject 0.3 mL intramuscularly as directed. use as directed for allergic reaction. Seek emergent medical immediately after use. 1 Each 1 07/25/2023 02/21/2024 Discontinued (Other) Start: 04-18-2018 End: 07-25-2023 EPINEPHrine (EPIPEN) 0.3 mg/ 0.3 mL auto-injector Inject 0.3 mL intramuscularly as directed. use as directed for allergic reaction. Seek emergent medical immediately after use. 1 Each 1 04/18/2018 07/25/2023 Discontinued Comment on above: Inject 0.3 mL intram uscularly as directed. use as directed for allergic reaction. Seek emergent medical immediately after use. estradiol 0.1 mg/ml vaginal cream (20 sources) Estrogen Start: 09-23-2023 End: 08-21-2024 estradiol (ESTRACE) 0.01 % (0.1 mg/gram) vaginal cream Use 1g vaginally 2 times per week. 85 g 4 09/23/2023 08/21/2024 Discontinued Start: 09-21-2022 End: 09-23-2023 estradiol (ESTRACE) 0.01 % ( 0.1 mg/gram) vaginal cream Use 1g vaginally nightly for 2 weeks. Then decrease to 2 times per week ongoing. 85 g 4 12/03/2022 07/25/2023 Discontinued Start: 09-18-2021 End: 09-21-2022 estradiol (ESTRACE) 0.01 % ( 0.1 mg/gram) vaginal cream Use 1g vaginally nightly for 2 weeks. Then decrease to 2 times per week ongoing. 42.5 g 4 09/18/2021 09/21/2022 Discontinued Comment on above: Use 1g vaginally nig htly for 2 weeks. Then decrease to 2 times per week ongoing. ferrous sulfate 325 mg oral tablet (14 sources) Start: End: 4 take 1 tablet by mouth twice daily at mealtime ferrous sulfate 325 mg (65 mg iron) tablet Indications: RLS (restless legs syndrome) Take 1 tablet by mouth two times a day. (take with meals) 60 tablet 5 03/09/2023 09/26/2023 Discontinued Comment on above: Take 1 tablet by syl th two times a day. (take with meals) magnesium oxide 400 mg oral tablet (20 sources) Start: End: 4 take 1 tablet by mouth once daily at bedtime magnesium oxide (MAG-OX) 400 mg (241.3 mg magnesium) tablet Indications: RLS (restless legs syndrome) Take 1 tablet by mouth daily at bedtime. 30 tablet 5 03/09/2023 09/26/2023 Discontinued Start: 06-21-2022 End: 12-03-2022 take 1 tablet by mouth once daily at bedtime magnesium oxide (MAG-OX) 400 mg (241.3 mg magnesium) tablet Indications: RLS (restless legs syndrome) Take 1 tablet by mouth daily at bedtime. 30 tablet 2 06/21/2022 12/03/2022 Discontinued Comment on above: Take 1 tablet by syl th daily at bedtime. methocarbamol 500 mg oral tablet (20 sources) Muscle Relaxant Start: 11-29-19 24 End: 06-17-20 25 take 0.5 tablet by mouth at bedtime as needed, then take 0.5-1 tablets by mouth once daily as needed methocarbamol (ROBAXIN) 500 mg tablet Take 0.5 tablets by mouth at bedtime as needed. Can take half to one pill a day as needed 30 tablet 1 11/29/2023 08/21/2024 Discontinued mupirocin 0.02 mg/mg topical ointment (8 sources) RNA Synthetase Inhibitor Antibacterial Start: 01-22-20 End: 08-18-19 mupirocin (BACTROBAN) 2 % ointment Apply to the right side of the nose twice daily for 1 month. 22 g 1 01/21/2022 08/17/2022 Discontinued Comment on above: Apply to the right s esmer of the nose twice daily for 1 month. sodium chloride 0.111 meq/ml nasal spray (20 sources) Start: 02-09-20 End: 02-21-20 sodium chloride (SALINE NASAL) 0.65 % nasal spray Indications: COVID-19 virus infection Use 2-3 Sprays in the nose three times a day. 120 mL 02/08/2023 02/21/2024 Discontinued Comment on above: Use 2-3 Sprays in th e nose three times a day. triamcinolone acetonide 1 mg/ml topical cream (20 sources) Corticosteroid Start: 07-25-19 End: 08-22-19 triamcinolone acetonide (KENALOG) 0.1 % cream Apply 1 application to affected area two times a day. Apply to affected area. Location: back 07/25/2023 08/21/2024 Discontinued Problems Active Problems Problem Classification Problem Date Documented Date Episodic/Chronic Acquired foot deformities (8 sources) Acquired right hallux valgus; Translations: [Hallux valgus (acquired), right foot] Onset: 08-29-2024 02-07-2024 Chronic Acquired foot deformities (1 source) Bunion; Translations: [Bunion of right foot] 11-10-2022 Episodic Allergic reactions (1 source) H/O: non-drug allergy; Translations: [Bee allergy status] 07-25-2023 Episodic Anxiety disorders (20 sources) Anxiety; Translations: [Anxiety disorder, unspecified] Onset: 09-04-2018 09-04-2018 Chronic Diabetes mellitus without complication (1 source) Increased glucose level; Translations: [Other abnormal glucose] 11-10-2022 Episodic Disorders of lipid metabolism (20 sources) Mixed hyperlipidemia; Translations: [Mixed hyperlipidemia] Onset: 10-31-2017 10-31-2017 Chronic E Codes: Fall (2 sources) Fall; Translations: [Unspecified fall, initial encounter] 05-10-2024 Episodic Essential hypertension (20 sources) Essential hypertension; Translations: [Essential (primary) hypertension] Onset: 01-05-2022 Chronic Genitourinary symptoms and ill-defined conditions (20 sources) Female stress incontinence; Translations: [Stress incontinence (female) (male)] Onset: 11-10-2023 09-23-2023 Chronic Immunizations and screening for infectious disease (1 source) Vaccination needed; Translations: [Encounter for immunization] Episodic Malaise and fatigue (2 sources) Malaise; Translations: [Other malaise] Onset: 12-06-2024 04-26-2023 Episodic Mood disorders (20 sources) Recurrent major depressive episodes; Translations: [Major depressive disorder, recurrent, unspecified] Onset: 08-19-2010 01-26-2016 Chronic Osteoarthritis (20 sources) Osteoarthritis of joint of right hand; Translations: [Primary osteoarthritis, right hand] Onset: 12-08-2015 12-08-2015 Chronic Other circulatory disease (1 source) Elevated blood pressure; Translations: [Elevated blood-pressure reading, without diagnosis of hypertension] 12-06-2024 Episodic Other female genital disorders (1 source) Pruritus of vagina; Translations: [Other specified noninflammatory disorders of vagina] 09-21-2022 Episodic Other hereditary and degenerative nervous system conditions (2 sources) Restless legs; Translations: [Restless legs syndrome] 12-03-2022 Chronic Other inflammatory condition of skin (20 sources) Psoriasis; Translations: [Other psoriasis] Onset: 11-03-2005 11-03-2005 Chronic Other injuries and conditions due to external causes (1 source) Injury of right shoulder; Translations: [Unspecified injury of right shoulder and upper arm, initial encounter] 03-15-2023 Episodic Other injuries and conditions due to external causes (2 sources) Injury of left knee; Translations: [Unspecified injury of left lower leg, initial encounter] 11-29-2023 Episodic Other injuries and conditions due to external causes (1 source) Unspecified injury of head, initial encounter; Translations: [Unspecified injury of head, initial encounter] Onset: 05-21-2024 Episodic Other injuries and conditions due to external causes (2 sources) Closed injury of head; Translations: [Unspecified injury of head, initial encounter] 05-10-2024 Episodic Other lower respiratory disease (3 sources) Cough; Translations: [Acute cough] 04-26-2023 Episodic Other lower respiratory disease (2 sources) Dyspnea; Translations: [Shortness of breath] 04-26-2023 Episodic Other non-traumatic joint disorders (1 source) Effusion of joint of left knee; Translations: [Effusion, left knee] 11-29-2023 Episodic Other skin disorders (2 sources) Skin lesion; Translations: [Disorder of the skin and subcutaneous tissue, unspecified] Episodic Other skin disorders (2 sources) Sebaceous cyst of skin; Translations: [Sebaceous cyst] Episodic Other skin disorders (1 source) Cyst of skin; Translations: [Follicular cyst of the skin and subcutaneous tissue, unspecified] Episodic Other skin disorders (1 source) Eruption; Translations: [Rash and other nonspecific skin eruption] Episodic Other skin disorders (1 source) Loss of hair; Translations: [Nonscarring hair loss, unspecified] 11-10-2022 Episodic Other upper respiratory disease (1 source) Nasal congestion; Translations: [Nasal congestion] Episodic Other upper respiratory disease (1 source) Disorder of the nose; Translations: [Other specified disorders of nose and nasal sinuses] Episodic Other upper respiratory disease (1 source) Deviated nasal septum; Translations: [Deviated nasal septum] Episodic Other upper respiratory infections (3 sources) Sore throat symptom; Translations: [Acute pharyngitis, unspecified] 04-03-2023 Episodic Pneumonia (except that caused by tuberculosis or sexually transmitted disease) (2 sources) Bacterial pneumonia; Translations: [Unspecified bacterial pneumonia] 04-03-2023 Episodic Residual codes; unclassified (2 sources) Sleep apnea; Translations: [Sleep apnea, unspecified] Chronic Residual codes; unclassified (1 source) Periodic limb movement disorder; Translations: [Periodic limb movement disorder] 09-26-2023 Chronic Residual codes; unclassified (2 sources) REM sleep behavior disorder; Translations: [REM sleep behavior disorder] 08-29-2024 Chronic Residual codes; unclassified (2 sources) Obstructive sleep apnea syndrome; Translations: [Obstructive sleep apnea (adult) (pediatric)] 08-29-2024 Chronic Residual codes; unclassified (1 source) REM sleep behavior disorder; Translations: [RBD (REM behavioral disorder)] Onset: 08-29-2024 Chronic Residual codes; unclassified (1 source) Obstructive sleep apnea (adult) (pediatric); Translations: [Obstructive sleep apnea syndrome] Onset: 08-29-2024 Chronic Residual codes; unclassified (2 sources) FH: Alzheimer's disease; Translations: [Family history of epilepsy and other diseases of the nervous system] 06-05-2024 Episodic Residual codes; unclassified (2 sources) Insomnia; Translations: [Insomnia, unspecified] 08-29-2024 Episodic Screening and history of mental health and substance abuse codes (1 source) Patient encounter status; Translations: [Encounter for screening for depression] 06-05-2024 Episodic Superficial injury; contusion (1 source) Tick bite; Translations: [Insect bite of unspecified part of neck, initial encounter] 12-28-2023 Episodic Unclassified (1 source) Patient encounter status 08-21-2024 Viral infection (1 source) Disease caused by 2019-nCoV; Translations: [COVID-19] 02-08-2023 Episodic Past or Other Problems Problem Classification Problem Date Documented Da te Episodic/Chronic Administrative/social admission (2 sources) Memory finding; Translations: [Person with feared health complaint in whom no diagnosis is made] Onset: 08-29-2024 08-29-2024 Episodic Other connective tissue disease (20 sources) Triggering of digit; Translations: [Trigger finger, right middle finger] Onset: 04-03-2012 04-03-2012 Episodic Other connective tissue disease (20 sources) Trigger thumb of left hand; Translations: [Trigger thumb, left thumb] Onset: 04-03-2012 04-03-2012 Episodic Other non-epithelial cancer of skin (20 sources) History of malignant neoplasm of skin; Translations: [Personal history of other malignant neoplasm of skin] Onset: 11-03-2005 11-03-2005 Episodic Other non-traumatic joint disorders (20 sources) Pain in left knee; Translations: [Pain in joint, lower leg] Onset: 12-20-2023 12-20-2023 Episodic Other screening for suspected conditions (not mental disorders or infectious disease) (12 sources) Mammography abnormal; Translations: [Other abnormal and inconclusive findings on diagnostic imaging of breast] Onset: 08-21-2024 Episodic Residual codes; unclassified (1 source) Insomnia, unspecified; Translations: [Insomnia, unspecified type] Onset: 08-29-2024 Episodic Residual codes; unclassified (1 source) Family history of epilepsy and other diseases of the nervous system; Translations: [Family history of Alzheimer disease] Onset: 08-29-2024 Episodic Spondylosis; intervertebral disc disorders; other back problems (20 sources) Chronic low back pain; Translations: [Chronic bilateral low back pain without sciatica] Onset: 01-14-2020 01-14-2020 Episodic Sprains and strains (20 sources) Injury of scapular region; Translations: [Strain of other muscles, fascia and tendons at shoulder and upper arm level, left arm, subsequent encounter] Onset: 12-19-2023 11-29-2023 Episodic Results Test Name Value Interpretation Reference Range Facility [facility] 12-06-2024 CNOV Office Visit (WOUCA) JAZ DUKES ([id number]) 1955 F Date Time Provider Department 12/06/24 3:00 PM VASILE MARI During your visit today, we recorded the following information about you: Temperature Pulse Respiration Blood pressure 98.1 degrees 62/minute 20/minute 154/97 Weight 56 kg Vasile Mari APRN.CNP 12/06/2024 3:31 PM Signed Patient presents today stating that she recently was on a cruise and developed cold-like symptoms. She states that November 27 through December 05 she was generally feeling just not like herself but awoke today feeling very fatigued and slept all day. She also notes a vague sensation of generalized chest pain. Denies any fever but does note mild cough, fatigue, and chest pain. She did test negative for COVID at home. Vitals today here are unremarkable. I discussed with patient that if her concern was related to fatigue and chest pain she would need to be evaluated at the emergency department as the only thing I could actually test for here would be for viral illness. After discussion, patient states that she will go to the emergency department for evaluation. Patient was offered a squad but patient notes that her is in the parking lot and will drive her across the street to [facility]. Patient was in no acute distress on my evaluation. Allergies As of Date: 12/06/2024 Noted Allergy Reaction ALLERGEN [id number] BEE 10/28/2006 MOLD 11/23/2005 PROPOLIS (BEE GLUE) 07/22/2008 Date Reviewed: 12/06/2024 Reviewed by: Vasile Mari APRN.DIE TECHNICIAN - Fully Assessed Reason for Visit: Cough [28] Cmt: Chest congestion, fatigue x 11/25 states she was, - Covid at home, x 1 day started with fatigue and congestion Primary Visit Diagnosis:Fatigue, unspecified type [R53.83] Prescriptions as of 12/06/2024 - minoxidil (LONITEN) 2.5 mg tablet Take 2.5 mg by mouth once daily. Taking 1/4 tablet daily - donepezil (ARICEPT) 5 mg tablet Take 1 tablet by mouth daily after breakfast. - sertraline (ZOLOFT) 50 mg tablet Take 1 tablet by mouth once daily. Start with half a pill for a week and then go to a full pill - finasteride (PROPECIA) 1 mg tablet Take 1 tablet by mouth every afternoon. - tacrolimus (PROTOPIC) 0.1 % ointment Apply to affected area two times a day. - lisinopril (ZESTRIL) 5 mg tablet Take 1 tablet by mouth once daily. - ezetimibe (ZETIA) 10 mg tablet take 1 tablet daily - fluticasone (FLONASE) 50 mcg/actuation nasal spray Use 2 Sprays in each nostril once daily. Rinse mouth after use. Meds Comments as of 10/14/2015: [facility]. Problem List As Of Date 12/06/2024 Noted Resolved Mixed hyperlipidemia [E78.2] OTHER PSORIASIS [L40.8] 11/03/2005 PERS HX SKIN MALIGNANCY NEC [Z85.828] 11/03/2005 Major depressive disorder, recurrent episode (H*08/19/2010 Trigger middle finger of right hand [M65.331] 04/03/2012 Trigger thumb of left hand [M65.312] 04/03/2012 Primary osteoarthritis of right hand [M19.041] 12/08/2015 Anxiety [F41.9] 09/04/2018 Chronic bilateral low back pain without sciatic*01/14/2020 Chronic bilateral low back pain with bilateral *06/30/2020 Essential hypertension [I10] 01/05/2022 MARINE (stress urinary incontinence, female) [N39.*11/10/2023 Strain of left levator scapulae muscle [S46.812*12/20/2023 Cervicalgia [M54.2] 12/20/2023 Acute pain of left knee [M25.562] 12/20/2023 Encounter Status:Closed by VASILE MARI on 12/06/[address] [facility] Influenza virus A and B and SARS-CoV-2 (COVID-19) and Respiratory syncytial virus RNAOrdered By: Apolinar Finley on 12-06-2024 SARS-CoV-2 (COVID-19) RNA JONO+probe Ql (Unsp spec) [facility] CNTHERAPYon 11-30-2024 CNTHERAPY OT/PT/Speech Visit (PTWS) JAZ DUKES ([id number]) 1955 F Date Time Provider Department 11/30/24 1:00 PM DARRYL CARDENAS PTWS Date Time Provider Department Center 11/30/2024 1:00 PM [id number], SEAN PTWS [facility] Reason for Visit: PT Discharge [752] Primary Visit Diagnosis:Cervicalgia [M54.2] Other Visit Diagnoses:Strain of left levator scapulae muscle, initial encounter [S46.016R] Acute pain of left knee [M25.562] Allergies As of Date: 11/30/2024 Noted Allergy Reaction ALLERGEN [id number] BEE 10/28/2006 MOLD 11/23/2005 PROPOLIS (BEE GLUE) 07/22/2008 Date Reviewed: 08/29/2024 Reviewed by: Lilibeth Green MA - Fully Assessed Prescriptions as of 12/03/2024 - minoxidil (LONITEN) 2.5 mg tablet Take 2.5 mg by mouth once daily. Taking 1/4 tablet daily - donepezil (ARICEPT) 5 mg tablet Take 1 tablet by mouth daily after breakfast. - sertraline (ZOLOFT) 50 mg tablet Take 1 tablet by mouth once daily. Start with half a pill for a week and then go to a full pill - finasteride (PROPECIA) 1 mg tablet Take 1 tablet by mouth every afternoon. - tacrolimus (PROTOPIC) 0.1 % ointment Apply to affected area two times a day. - lisinopril (ZESTRIL) 5 mg tablet Take 1 tablet by mouth once daily. - ezetimibe (ZETIA) 10 mg tablet take 1 tablet daily - fluticasone (FLONASE) 50 mcg/actuation nasal spray Use 2 Sprays in each nostril once daily. Rinse mouth after use. Meds Comments as of 10/14/2015: [facility]. [facility] CNTHERAPYon 11-02-2024 CNTHERAPY OT/PT/Speech Visit (PTWS) JAZ DUKES ([id number]) 1955 F Date Time Provider Department 11/02/24 1:45 PM DARRLY CARDENAS PTWS Date Time Provider Department Center 11/02/2024 1:45 PM [id number], SEAN PTWS Patricia Zurita Reason for Visit: PT Progress Note [1596] Primary Visit Diagnosis:Cervicalgia [M54.2] Other Visit Diagnoses:Strain of left levator scapulae muscle, initial encounter [S46.972A] Acute pain of left knee [M25.562] Allergies As of Date: 11/02/2024 Noted Allergy Reaction ALLERGEN [id number] BEE 10/28/2006 MOLD 11/23/2005 PROPOLIS (BEE GLUE) 07/22/2008 Date Reviewed: 08/29/2024 Reviewed by: Lilibeth Green MA - Fully Assessed Prescriptions as of 11/02/2024 - minoxidil (LONITEN) 2.5 mg tablet Take 2.5 mg by mouth once daily. Taking 1/4 tablet daily - meloxicam (MOBIC) 15 mg tablet Take 1 tablet by mouth once daily. - donepezil (ARICEPT) 5 mg tablet Take 1 tablet by mouth daily after breakfast. - sertraline (ZOLOFT) 50 mg tablet Take 1 tablet by mouth once daily. Start with half a pill for a week and then go to a full pill - finasteride (PROPECIA) 1 mg tablet Take 1 tablet by mouth every afternoon. - tacrolimus (PROTOPIC) 0.1 % ointment Apply to affected area two times a day. - lisinopril (ZESTRIL) 5 mg tablet Take 1 tablet by mouth once daily. - ezetimibe (ZETIA) 10 mg tablet take 1 tablet daily - fluticasone (FLONASE) 50 mcg/actuation nasal spray Use 2 Sprays in each nostril once daily. Rinse mouth after use. Meds Comments as of 10/14/2015: [facility]. Normal [facility] SCREENING W TOMOon 10-19 DWAIN SCREENING W HONORIO * * *Final Report* * * DATE OF EXAM: Oct 19 2024 12:44PM WRW [id number] - DWAIN SCREENING W HONORIO / PROCEDURE REASON: Breast cancer screening by mammogram * * * * Physician Interpretation * * * * RESULT: [address] [address] [place] [address] #[id number] - [facility] SCREENING W HONORIO HISTORY: 69 year-old patient presents for screening. Patient is asymptomatic in both breasts. Patient states no personal history of breast cancer. COMPARISON STUDIES: The present examination has been compared to prior imaging studies dated 02/01/2020 (mammogram), 05/04/2021 (mammogram), 06/03/2021 (mammogram), 12/08/2021 (ultrasound), 12/08/2021 (mammogram), 10/11/2022 (mammogram) and 10/17/2023 (mammogram). MAMMOGRAM TECHNIQUE: The study was acquired using full field digital technology and interpreted from soft copy. Digital Breast Tomosynthesis (DBT) images were obtained and used to assist in the interpretation of this examination. MAMMOGRAM FINDINGS: There are scattered areas of fibroglandular density. There are post-operative changes in the left breast. There are no significant interval changes. No suspicious masses, calcifications or other abnormalities are seen in either breast. IMPRESSION: There is no mammographic evidence of malignancy. Routine screening mammogram is recommended. Annual mammogram will be due in 1 year. BI-RADS Category 2: Benign RISK: Based on the Tyrer-Cuzick (TC) risk assessment model, this patient has a 2.3% lifetime risk of developing breast cancer, meaning they are at average risk for developing breast cancer. However, this is only an estimate based on available history provided on the patient's questionnaire. We encourage all patients to talk with their providers about these results, further recommendations for managing breast health, and appropriate supplemental screening options if the patient has dense breast tissue. Interpreting Radiologist: Mary Jacobo M.D. Electronically signed on: 10/20/2024 Wrapper Selector: LUCY Transcribe Date/Time: Oct 19 2024 12:31P Dictated by: MARY JACOBO MD This examination was interpreted and the report reviewed and electronically signed by: MARY JACOBO MD on Oct 20 2024 12:39PM EST [id number] Normal [facility] [id number] 10-15-2024 [id number] HNO ID: [id number] Author: DARRYL CARDENAS PT Service: ? Author Type: Physical Therapist Type: [id number] Filed: 10/15/2024 13:53 Note Text: [facility] Physical Therapy Plan of Care Certification Patient Name: Jaz Dukes : 1955 [facility] #: [id number] Date: 10/15/2024 To: Micah High MD From Therapist: Darryl Cardenas PT RE: Patient Certification/ Recertification Your review, approval and electronic signature are required in order to comply with Payor: MMO MEDICARE / Plan: MMO MEDADVANTAGE HMO / Product Type: HMO / regulations. The identified Physical Therapy PLAN OF CARE for the patient is as follows: M54.2 Cervicalgia (primary encounter diagnosis) S46.812A Strain of left levator scapulae muscle, initial encounter M25.562 Acute pain of left knee PLAN OF CARE UPDATE: Assessment: Jaz Dukes demonstrates moderate improvement in bending, heavy exertion, lifting, and physical activities. The patient has progressed toward goals. Patient continues to present with impairments in ADL's, overall function, range of motion, symptom management, and tissue tenderness that interfere with bending, heavy exertion, lifting, physical activities . Current prognosis is Excellent due to: current objective clinical presentation, good overall health status, positive past response to therapy, within-session changes, good support system/ coping skills . The patient will benefit from continued skilled therapy services to meet the updated goals for this plan of care as noted below. Goals updated on 10/15/2024. Goals for Episode of Care: established 12/19/23 [place] in home exercise program. Met Patient will decrease pain rating by 2 points to meet minimal clinical important difference for numeric pain rating scale. Partially met Patient will increase active ROM of cervical spine to WNL to allow pt to to improve performance of ADLs. Progressing Patient will demonstrate increase in L knee strength to 4+/5 during manual muscle testing in order to improve function for basic self-care tasks, home management tasks, and prior functional tasks. Progressing Sleep throughout the night without pain/symptoms. Progressing Time Frame for Goals and Treatment : 12/15/24 Planned Interventions, Frequency, and Duration: 1x/month, 8 weeks Total Number of Visits Planned: 2 Patient to be seen for Therapeutic exercise (17287), Manual therapy (91923), Therapeutic activities (09302), Neuromuscular re-education (56657), Self-residential management (31973), Patient/Family/Caregive r Education, Body Mechanics Training PLAN FOR NEXT VISIT: Will see patient in 2 weeks before I leave on vacation, then after I return. For further details regarding this patient refer to the Physical Therapy electronically documented visit dated 10/15/2024. Provider Attestation I have reviewed the treatment plan for Jaz Baltazar Dukes, [facility]# [id number] for the period of 10/15/24 -- 12/15/24, established on 10/15/2024. Signature certifies the need for therapy services. Normal [facility] CNTHERAPYon 10-15-2024 CNTHERAPY OT/PT/Speech Visit (PTWS) JAZ DUKES ([id number]) 1955 F Date Time Provider Department 10/15/24 9:45 AM DARRYL CARDENAS PTWS Date Time Provider Department Center 10/15/2024 9:45 AM [id number], SEAN PTWS Patricia Zurita Reason for Visit: PT Progress Note [1596] Primary Visit Diagnosis:Cervicalgia [M54.2] Other Visit Diagnoses:Strain of left levator scapulae muscle, initial encounter [S46.812A] Acute pain of left knee [M25.562] Allergies As of Date: 10/15/2024 Noted Allergy Reaction ALLERGEN [id number] BEE 10/28/2006 MOLD 11/23/2005 PROPOLIS (BEE GLUE) 07/22/2008 Date Reviewed: 08/29/2024 Reviewed by: Lilibeth Green MA - Fully Assessed Prescriptions as of 10/15/2024 - minoxidil (LONITEN) 2.5 mg tablet Take 2.5 mg by mouth once daily. Taking 1/4 tablet daily - meloxicam (MOBIC) 15 mg tablet Take 1 tablet by mouth once daily. - donepezil (ARICEPT) 5 mg tablet Take 1 tablet by mouth daily after breakfast. - sertraline (ZOLOFT) 50 mg tablet Take 1 tablet by mouth once daily. Start with half a pill for a week and then go to a full pill - finasteride (PROPECIA) 1 mg tablet Take 1 tablet by mouth every afternoon. - tacrolimus (PROTOPIC) 0.1 % ointment Apply to affected area two times a day. - lisinopril (ZESTRIL) 5 mg tablet Take 1 tablet by mouth once daily. - ezetimibe (ZETIA) 10 mg tablet take 1 tablet daily - fluticasone (FLONASE) 50 mcg/actuation nasal spray Use 2 Sprays in each nostril once daily. Rinse mouth after use. Meds Comments as of 10/14/2015: [facility]. Normal [facility] CNTHERAPYon 09-13-2024 CNTHERAPY OT/PT/Speech Visit (PTWS) JAZ DUKES ([id number]) 1955 F Date Time Provider Department 09/13/24 9:15 AM DARRYL CARDENAS PTWS Date Time Provider Department Center 09/13/2024 9:15 AM [id number], SEAN PTWS Patricia Zurita Reason for Visit: PT Progress Note [1596] Primary Visit Diagnosis:Cervicalgia [M54.2] Other Visit Diagnoses:Strain of left levator scapulae muscle, initial encounter [S46.812A] Acute pain of left knee [M25.562] Allergies As of Date: 09/13/2024 Noted Allergy Reaction ALLERGEN [id number] BEE 10/28/2006 MOLD 11/23/2005 PROPOLIS (BEE GLUE) 07/22/2008 Date Reviewed: 08/29/2024 Reviewed by: Lilibeth Green MA - Fully Assessed Prescriptions as of 09/13/2024 - minoxidil (LONITEN) 2.5 mg tablet Take 2.5 mg by mouth once daily. Taking 1/4 tablet daily - meloxicam (MOBIC) 15 mg tablet Take 1 tablet by mouth once daily. - donepezil (ARICEPT) 5 mg tablet Take 1 tablet by mouth daily after breakfast. - sertraline (ZOLOFT) 50 mg tablet Take 1 tablet by mouth once daily. Start with half a pill for a week and then go to a full pill - finasteride (PROPECIA) 1 mg tablet Take 1 tablet by mouth every afternoon. - tacrolimus (PROTOPIC) 0.1 % ointment Apply to affected area two times a day. - lisinopril (ZESTRIL) 5 mg tablet Take 1 tablet by mouth once daily. - ezetimibe (ZETIA) 10 mg tablet take 1 tablet daily - fluticasone (FLONASE) 50 mcg/actuation nasal spray Use 2 Sprays in each nostril once daily. Rinse mouth after use. Meds Comments as of 10/14/2015: [facility]. Normal [facility] CNTHERAPYon 08-31-2024 CNTHERAPY OT/PT/Speech Visit (PTWS) JAZ DUKES ([id number]) 1955 F Date Time Provider Department 08/31/24 8:15 AM DARRYL CARDENAS Date Time Provider Department Center 08/31/2024 8:15 AM [id number], SEAN PTMATT Zurita Reason for Visit: Physical Therapy [503] Primary Visit Diagnosis:Cervicalgia [M54.2] Other Visit Diagnoses:Strain of left levator scapulae muscle, initial encounter [S46.582A] Acute pain of left knee [M25.562] Allergies As of Date: 08/31/2024 Noted Allergy Reaction ALLERGEN [id number]-[id number] BEE 10/28/2006 MOLD 11/23/2005 PROPOLIS (BEE GLUE) 07/22/2008 Date Reviewed: 08/29/2024 Reviewed by: Lilibeth Green MA - Fully Assessed Prescriptions as of 08/31/2024 - minoxidil (LONITEN) 2.5 mg tablet Take 2.5 mg by mouth once daily. Taking 1/4 tablet daily - meloxicam (MOBIC) 15 mg tablet Take 1 tablet by mouth once daily. - donepezil (ARICEPT) 5 mg tablet Take 1 tablet by mouth daily after breakfast. - sertraline (ZOLOFT) 50 mg tablet Take 1 tablet by mouth once daily. Start with half a pill for a week and then go to a full pill - finasteride (PROPECIA) 1 mg tablet Take 1 tablet by mouth every afternoon. - tacrolimus (PROTOPIC) 0.1 % ointment Apply to affected area two times a day. - lisinopril (ZESTRIL) 5 mg tablet Take 1 tablet by mouth once daily. - ezetimibe (ZETIA) 10 mg tablet take 1 tablet daily - fluticasone (FLONASE) 50 mcg/actuation nasal spray Use 2 Sprays in each nostril once daily. Rinse mouth after use. Meds Comments as of 10/14/2015: [facility]. Department Of Sociology Chair: Therapy (PT/OT/Speech/Resp) ID: [id number] 08/31/2024 8:53 AM Author: DARRYL CARDENAS Signed by DARRYL CARDENAS PT on 08/31/2024 at 8:53 AM Document text: Program_ID:[id number] Access Code: [email or web address] URL: [email or web address]/ Date: 08-31-2024 Prepared By: Darryl Cardenas Program Notes Exercises - Gentle Levator Scapulae Stretch - 1 x daily - 7 x weekly - 3 sets - 3 reps - Seated Upper Trapezius Stretch - 1 x daily - 7 x weekly - 3 sets - 3 reps - Seated Cervical Retraction - 1 x daily - 7 x weekly - 3 sets - 10 reps - Sternocleidomastoid Stretch - 1 x daily - 7 x weekly - 3 sets - 10 reps Patient Education - Office Posture [facility] THERAPY NTon 08-31-2024 THERAPY NT HNO ID: [id number] Author: DARRYL CARDENAS PT Service: ? Author Type: Physical Therapist Type: Therapy (PT/OT/Speech/Resp) Filed: 08/31/2024 08:53 Note Text: Program_ID:[id number] Access Code: [email or web address] URL: [email or web address] .[employer]/ Date: 08-31-2024 Prepared By: Darryl Cardenas Program Notes Exercises - Gentle Levator Scapulae Stretch - 1 x daily - 7 x weekly - 3 sets - 3 reps - Seated Upper Trapezius Stretch - 1 x daily - 7 x weekly - 3 sets - 3 reps - Seated Cervical Retraction - 1 x daily - 7 x weekly - 3 sets - 10 reps - Sternocleidomastoid Stretch - 1 x daily - 7 x weekly - 3 sets - 10 reps Patient Education - Office Posture [facility] CNOVon 08-29-2024 CNOV Office Visit (GERIWR ) JAZ DUKES ([id number]) 1955 F Date Time Provider Department 08/29/24 1:30 PM MICAH HIGH During your visit today, we recorded the following information about you: Pulse Respiration Blood pressure Weight 65/minute 16/minute 124/68 57.6 kg Micah High MD 08/29/2024 4:54 PM Signed [facility] Initial Consult Jaz Dukes is a 69 year old year old female who comes for Comprehensive Geriatric Assessment. Pt accompanied by: juancho Caregivers involved in care: No HPI: Emilee Dukes is a 69-year-old female with a history of hypercholesterolemia, presenting for evaluation of memory issues and sleep disturbances. Emilee reports difficulty with short-term memory recall, particularly under stress. She recently struggled with a word recall test, attributing her performance to stress and lack of preparation time. She was able to recall some words with multiple-choice cues. She denies difficulty remembering past events such as employment or her wedding. She has a family history of dementia, with her father exhibiting memory issues and behaviors suggestive of dementia before his , though he was not formally diagnosed with Alzheimer's disease. Her mother had a history of heart disease but no reported cognitive issues. Emilee also reports sleep disturbances, including difficulty falling asleep and frequent awakenings during the night. She uses nasal strips to improve breathing at night and occasionally takes Benadryl to aid sleep. Her reports that she thrashes and sometimes kicks him during sleep. She underwent a sleep study at [facility], which showed no evidence of sleep-related breathing disorder but noted frequent periodic limb movements resulting in arousals from sleep. She typically falls asleep on her right side and denies difficulty staying asleep once she falls asleep. She denies tremors, pain, or difficulty chewing. She reports urinary incontinence only when she has a strong urge to urinate and is unable to reach the bathroom in time. She has a diminished sense of smell, which she attributes to allergies, and has arthritis in her hands. She denies any recent falls, hearing impairment, or constipation. She reports no changes in weight or appetite and consumes alcohol occasionally, with up to two glasses of Chardonnay once a week. She is a nonsmoker. Emilee is able to perform activities of daily living independently, including bathing, dressing, cooking, and managing finances. She engages in gardening and walks two miles daily. 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 She describes her marriage as good and reports being independent in her activities. Any Family History of dementia? Father , not sure if it was AD Are you or your spouse a ? No Alzheimer Questionnaire Long-term Memory: Difficulty remembering distant events from the past like childhood, previous employment, wedding: NO Behavioral/personality: Withdrawn/Depressed: YES Crying spells: YES Anxious: YES History of aggression: NO History of irritability: YES Apathy:NO Recent changes in weight or appetite: NO Alcohol or Drug use: drinks on occasion, 2 drinks once a week Smoking? NO Sleep: Do you snore loudly (louder than talking or loud enough to be heard through closed doors)? Does not have good sleep architecture , does not get much of REM, totally was only less than 30 mins and had a ahi of 13 at that time. Do you often feel tired, fatigued, or sleepy during daytime? See above Has anyone observed you stop breathing during your sleep? See above Are you restless when you sleep at night? No Do you have problems falling a sleep? NO Do you have problems staying a sleep? NO Psychosis: Hallucinations or delusions: NO Suicidal or homicidal ideations: NO Obsessions, compulsions, or hoarding: NO Safety: Does pt know his/her address? YES What would you do if there was a fire? Get out and call 911 Are there any firearms in the home? YES If yes are they in a secure location? Secure Social History: Primary language: Djiboutian Marital Status: Living situation: Home w/ Spouse Socially engaged? (participates in activities such as clubs, oriental orthodox, community center, sports, games, visiting friends/relatives, etc?): NO Caregiver [place] and Stress Are your feeling overwhelmed? NO Do you have concerns about your own health? NO Are you neglecting your own needs? NO Do you have financial concerns? NO Do your fear loss of employment? NO Do you have concerns about verbal/physical abuse? NO Do you feel that you are still capable of taking care of your relative? NO (more content not included)... [facility] CNOVon 08-21-2024 CNOV Office Visit (INTMWS ) JAZ DUKES ([id number]) 1955 F Date Time Provider Department 08/21/24 1:40 PM MICAH HIGH INTMWS During your visit today, we recorded the following information about you: Temperature Pulse Respiration Blood pressure 97.4 degrees 72/minute 16/minute 120/70 Weight 57.6 kg Micah High MD 08/21/2024 3:04 PM Signed Reason for Visit Follow up HPI Emilee Dukes is a 69-year-old female presenting for a follow-up visit. Emilee reports feeling a lot better since her last visit. She has been dealing with the emotional and logistical challenges of managing a friend's estate, which included selling a condo and handling financial matters. This process has been stressful and has contributed to her emotional distress. Emilee has a history of anxiety, the stress of managing the estate. She reports that she started drinking more alcohol to cope with the emotional pain but has since reduced her alcohol consumption. She has not yet sought counseling but plans to do so in the future. She finds solace in walking 2 miles a day with her dogs, which she reports helps her maintain mental stability. She is also continuing physical therapy, which she finds beneficial, although she is uncertain about the effectiveness of acupuncture treatments she recently received. Social History Tobacco Use Smoking status: Never Smokeless tobacco: Never Vaping Use Vaping status: Never Used Substance Use Topics Alcohol use: Yes Alcohol/week: 14.0 standard drinks of alcohol Types: 14 Glasses of Wine (5oz) per week Drug use: No Past medical history, appointments, medications, allergies reviewed. Pertinent Lab/Diagnostic Studies are reviewed and discussed today Current Outpatient Medications: LORazepam (ATIVAN) 0.5 mg sertraline (ZOLOFT) 50 mg tablet finasteride (PROPECIA) 1 mg tablet tacrolimus (PROTOPIC) 0.1 % ointment lisinopril (ZESTRIL) 5 mg tablet ezetimibe (ZETIA) 10 mg tablet fluticasone (FLONASE) 50 mcg/actuation nasal spray Health Maintenance Advance Directive Discussion Medicare Advantage Annual Wellness Visit Covid-19 Vaccine( season) Mammogram Screening@ Review Of Systems Psychiatric: (+) excessive crying Physical Exam BP 120/70 Pulse 72 Temp 36.3 ?C (97.4 ?F) (Temporal) Resp 16 Wt 57.6 kg (127 lb) LMP 12/12/2009 BMI 24.00 kg/m? GENERAL: NAD, alert and oriented SKIN: unremarkable, no rash or skin lesions. HEAD: normocephalic EYES: PERRLA, EOMI, conjunctiva clear EARS: external ears normal, canals clear, TM's normal. LUNGS: Clear to auscultation bilaterally, no wheezes/rhonchi/rales. HEART: Regular rate and rhythm, no murmurs. No ectopy. EXTREMITIES: Normal, No deformities, No skin discoloration, No edema. NEURO: Awake, alert and oriented x3, cranial nerves II-XII grossly intact, normal gait, no involuntary motions Assessment and Plan 1. Essential hypertension (I10) Clinically stable. Continue current management. 2. Panic attack (F41.0) Claustrophobia (F40.240) Experiencing significant emotional distress due to recent discovery of 's past infidelity. Patient has been managing multiple stressors, including the settlement of a friend's estate and past family issues. No current panic attacks reported, but underlying anxiety and emotional turmoil are evident. - Recommended counseling to address emotional distress and facilitate healing. - Encouraged patient to continue physical activity, such as walking, to help manage stress. 3. Breast cancer screening by mammogram (Z12.31) Ordered mammogram. 4. Cervicalgia (M54.2) Undergoing physical therapy with noted improvement. Recent acupuncture session performed by therapist. Continue physical therapy. Voice recognition software was used to compose this office note. Please excuse any unintended typographical errors. Recording using [employer] software for draft documentation of the visit was discussed with the patient/authorized customer contact representative; all questions welcomed and answered. Patient/authorized customer contact representative agreed to proceed Micah High MD Allergies As of Date: 08/21/2024 Noted Allergy Reaction ALLERGEN [id number] BEE 10/28/2006 MOLD 11/23/2005 PROPOLIS (BEE GLUE) 07/22/2008 Date Reviewed: 06/05/2024 Reviewed by: Lachelle Zhang LPN - Fully Assessed Reason for Visit: F/U 6 months [1177] Primary Visit Diagnosis:Breast cancer screening by mammogram [Z12.31] Other Visit Diagnoses:Essential hypertension [I10] Panic attack [F41.0] Claustrophobia [F40.240] Cervicalgia [M54.2] Order(s):LORazepam (ATIVAN) 0.5 mgTake 1 tablet by mouth three times a day as needed for up to 7 days.Disp: 21 tabletRfl: 0 DWAIN SCREENING W HONORIO [[id number]] Order #: [id number] FUTURE Prescriptions as of 08/21/2024 - LORazepam (ATIVAN) 0.5 mg Take 1 tablet by syl (more content not included)... [facility] CNTHERAPYon 08-17-2024 CNTHERAPY OT/PT/Speech Visit (PTWS) JAZ DUKES ([id number]) 1955 F Date Time Provider Department 08/17/24 11:15 AM DARRYL CARDENAS PTMATT Date Time Provider Department Center 08/17/2024 11:15 AM [id number], SEAN PTWS Patricia Zurita Reason for Visit: Physical Therapy [503] Primary Visit Diagnosis:Cervicalgia [M54.2] Other Visit Diagnoses:Strain of left levator scapulae muscle, initial encounter [S46.812A] Acute pain of left knee [M25.562] Allergies As of Date: 08/17/2024 Noted Allergy Reaction ALLERGEN ESR-[id number]-[id number] BEE 10/28/2006 MOLD 11/23/2005 PROPOLIS (BEE GLUE) 07/22/2008 Date Reviewed: 06/05/2024 Reviewed by: Lachelle Zhang LPN - Fully Assessed Prescriptions as of 08/17/2024 - sertraline (ZOLOFT) 50 mg tablet Take 1 tablet by mouth once daily. Start with half a pill for a week and then go to a full pill - methocarbamol (ROBAXIN) 500 mg tablet Take 0.5 tablets by mouth at bedtime as needed. Can take half to one pill a day as needed - finasteride (PROPECIA) 1 mg tablet Take 1 tablet by mouth every afternoon. - estradiol (ESTRACE) 0.01 % (0.1 mg/gram) vaginal cream Use 1g vaginally 2 times per week. - tacrolimus (PROTOPIC) 0.1 % ointment Apply to affected area two times a day. - triamcinolone acetonide (KENALOG) 0.1 % cream Apply 1 application to affected area two times a day. Apply to affected area. Location: back - lisinopril (ZESTRIL) 5 mg tablet Take 1 tablet by mouth once daily. - ezetimibe (ZETIA) 10 mg tablet take 1 tablet daily - fluticasone (FLONASE) 50 mcg/actuation nasal spray Use 2 Sprays in each nostril once daily. Rinse mouth after use. Meds Comments as of 10/14/2015: [facility]. [facility] [id number] 07-26-2024 [id number] HNO ID: [id number] Author: DARRYL CARDENAS PT Service: ? Author Type: Physical Therapist Type: [id number] Filed: 07/26/2024 14:23 Note Text: [facility] Physical Therapy Plan of Care Certification Patient Name: Jaz Dukes : 1955 [facility] #: [id number] Date: 07/26/2024 To: Micah High MD From Therapist: Darryl Cardenas PT RE: Patient Certification/ Recertification Your review, approval and electronic signature are required in order to comply with Payor: MMO MEDICARE / Plan: MMO MEDADVANTAGE HMO / Product Type: HMO / regulations. The identified Physical Therapy PLAN OF CARE for the patient is as follows: M54.2 Cervicalgia (primary encounter diagnosis) S46.812A Strain of left levator scapulae muscle, initial encounter M25.562 Acute pain of left knee PLAN OF CARE UPDATE: Assessment: Jaz Dukes demonstrates moderate improvement in bending, heavy exertion, lifting, physical activities, and use hand with arm at shoulder level. The patient has progressed toward goals. Patient continues to present with impairments in ADL's, overall function, range of motion, symptom management, and tissue tenderness that interfere with . Current prognosis is Excellent due to: current objective clinical presentation, good overall health status, positive past response to therapy, within-session changes, good support system/ coping skills . The patient will benefit from continued skilled therapy services to meet the updated goals for this plan of care as noted below. Goals updated on 07/26/2024. Goals for Episode of Care: established 12/19/23 [place] in home exercise program. Met Patient will decrease pain rating by 2 points to meet minimal clinical important difference for numeric pain rating scale. Partially met Patient will increase active ROM of cervical spine to WNL to allow pt to to improve performance of ADLs. Progressing Patient will demonstrate increase in L knee strength to 4+/5 during manual muscle testing in order to improve function for basic self-care tasks, home management tasks, and prior functional tasks. Progressing Sleep throughout the night without pain/symptoms. Progressing Time Frame for Goals and Treatment : 09/06/24 Planned Interventions, Frequency, and Duration: 1x every other week, 4 weeks Total Number of Visits Planned: 2 Patient to be seen for Therapeutic exercise (07694), Neuromuscular re-education (57877), Manual therapy (04649), Therapeutic activities (60016), Self-residential management (30387), Patient/Family/Caregive r Education, Body Mechanics Training PLAN FOR NEXT VISIT: Dry needling to levator For further details regarding this patient refer to the Physical Therapy electronically documented visit dated 07/26/2024. Provider Attestation I have reviewed the treatment plan for Jaz Dukes, C[facility]# [id number] for the period of 07/26/24 -- 09/25/24, established on 07/26/2024. Signature certifies the need for therapy services. [facility] CNTHERAPYon 07-26-2024 CNTHERAPY OT/PT/Speech Visit (PTWS) JAZ DUKES ([id number]) 1955 F Date Time Provider Department 07/26/24 12:30 PM DARRYL CARDENAS PTWS Date Time Provider Department Center 07/26/2024 12:30 PM [id number], SEAN PTWS Patricia Zurita Reason for Visit: PT Progress Note [1596] Primary Visit Diagnosis:Cervicalgia [M54.2] Other Visit Diagnoses:Strain of left levator scapulae muscle, initial encounter [S46.549Q] Acute pain of left knee [M25.562] Allergies As of Date: 07/26/2024 Noted Allergy Reaction ALLERGEN [id number]-[id number]-AJHGV BEE 10/28/2006 MOLD 11/23/2005 PROPOLIS (BEE GLUE) 07/22/2008 Date Reviewed: 06/05/2024 Reviewed by: Lachelle Zhang LPN - Fully Assessed Prescriptions as of 07/26/2024 - sertraline (ZOLOFT) 50 mg tablet Take 1 tablet by mouth once daily. Start with half a pill for a week and then go to a full pill - methocarbamol (ROBAXIN) 500 mg tablet Take 0.5 tablets by mouth at bedtime as needed. Can take half to one pill a day as needed - finasteride (PROPECIA) 1 mg tablet Take 1 tablet by mouth every afternoon. - estradiol (ESTRACE) 0.01 % (0.1 mg/gram) vaginal cream Use 1g vaginally 2 times per week. - tacrolimus (PROTOPIC) 0.1 % ointment Apply to affected area two times a day. - triamcinolone acetonide (KENALOG) 0.1 % cream Apply 1 application to affected area two times a day. Apply to affected area. Location: back - lisinopril (ZESTRIL) 5 mg tablet Take 1 tablet by mouth once daily. - ezetimibe (ZETIA) 10 mg tablet take 1 tablet daily - fluticasone (FLONASE) 50 mcg/actuation nasal spray Use 2 Sprays in each nostril once daily. Rinse mouth after use. Meds Comments as of 10/14/2015: [facility]. [facility] CNTHERAPYon 06-19-2024 CNTHERAPY OT/PT/Speech Visit (PTWS) JAZ DUKES ([id number]) 1955 F Date Time Provider Department 06/19/24 11:00 AM GEMMA OLMEDO PTWS Date Time Provider Department Center 06/19/2024 11:00 AM [id number], MARIAH PTWS Patricia Zurita Reason for Visit: Physical Therapy [503] Primary Visit Diagnosis:Cervicalgia [M54.2] Other Visit Diagnosis:Acute pain of left knee [M25.562] Allergies As of Date: 06/19/2024 Noted Allergy Reaction ALLERGEN VNP-HIPTS-JNMED BEE 10/28/2006 MOLD 11/23/2005 PROPOLIS (BEE GLUE) 07/22/2008 Date Reviewed: 06/05/2024 Reviewed by: Lachelle Zhang LPN - Fully Assessed Prescriptions as of 06/20/2024 - sertraline (ZOLOFT) 50 mg tablet Take 1 tablet by mouth once daily. Start with half a pill for a week and then go to a full pill - methocarbamol (ROBAXIN) 500 mg tablet Take 0.5 tablets by mouth at bedtime as needed. Can take half to one pill a day as needed - finasteride (PROPECIA) 1 mg tablet Take 1 tablet by mouth every afternoon. - estradiol (ESTRACE) 0.01 % (0.1 mg/gram) vaginal cream Use 1g vaginally 2 times per week. - tacrolimus (PROTOPIC) 0.1 % ointment Apply to affected area two times a day. - triamcinolone acetonide (KENALOG) 0.1 % cream Apply 1 application to affected area two times a day. Apply to affected area. Location: back - lisinopril (ZESTRIL) 5 mg tablet Take 1 tablet by mouth once daily. - ezetimibe (ZETIA) 10 mg tablet take 1 tablet daily - fluticasone (FLONASE) 50 mcg/actuation nasal spray Use 2 Sprays in each nostril once daily. Rinse mouth after use. Meds Comments as of 10/14/2015: [facility]. Department Of Sociology Chair: Therapy (PT/OT/Speech/Resp) ID: [id number] 06/19/2024 11:32 AM Author: GEMMA OLMEDO Signed by GEMMA OLMEDO COKE WHEELER on 06/19/2024 at 11:32 AM Document text: Program_ID:[id number] Access Code: [email or web address] URL: [email or web address] Date: 06-19-2024 Prepared By: Darryl Cardenas Program Notes Exercises - Gentle Levator Scapulae Stretch - 1 x daily - 7 x weekly - 3 sets - 3 reps - Seated Upper Trapezius Stretch - 1 x daily - 7 x weekly - 3 sets - 3 reps - Seated Scapular Retraction - 1 x daily - 7 x weekly - 3 sets - 10 reps - Active Straight Leg Raise with Quad Set - 1-2 x daily - 7 x weekly - 2 sets - 5-10 reps - Sidelying Hip Abduction - 1-2 x daily - 7 x weekly - 2 sets - 10 reps - Shoulder extension with resistance - Neutral - 1 x daily - 7 x weekly - 2-3 sets - 10 reps - Shoulder External Rotation and Scapular Retraction with Resistance - 1 x daily - 7 x weekly - 2-3 sets - 10 reps - Clamshell - 2 x daily - 7 x weekly - 2 sets - 10 reps - Seated Long Arc Quad - 2 x daily - 7 x weekly - 2 sets - 10 reps - Step Up - 1 x daily - 7 x weekly - 2 sets - 10 reps - Mini Squat with Counter Support - 1 x daily - 7 x weekly - 2 sets - 10 reps Patient Education - Office Posture [facility] THERAPY NTon 06-19-2024 THERAPY NT HNO ID: [id number] Author: GEMMA OLMEDO PTA Service: ? Author Type: Stringing Machine Operator Type: Therapy (PT/OT/Speech/Resp) Filed: 06/19/2024 11:32 Note Text: Program_ID:[id number] Access Code: [email or web address] URL: [email or web address] Date: 06-19-2024 Prepared By: Darryl Cardenas Program Notes Exercises - Gentle Levator Scapulae Stretch - 1 x daily - 7 x weekly - 3 sets - 3 reps - Seated Upper Trapezius Stretch - 1 x daily - 7 x weekly - 3 sets - 3 reps - Seated Scapular Retraction - 1 x daily - 7 x weekly - 3 sets - 10 reps - Active Straight Leg Raise with Quad Set - 1-2 x daily - 7 x weekly - 2 sets - 5-10 reps - Sidelying Hip Abduction - 1-2 x daily - 7 x weekly - 2 sets - 10 reps - Shoulder extension with resistance - Neutral - 1 x daily - 7 x weekly - 2-3 sets - 10 reps - Shoulder External Rotation and Scapular Retraction with Resistance - 1 x daily - 7 x weekly - 2-3 sets - 10 reps - Clamshell - 2 x daily - 7 x weekly - 2 sets - 10 reps - Seated Long Arc Quad - 2 x daily - 7 x weekly - 2 sets - 10 reps - Step Up - 1 x daily - 7 x weekly - 2 sets - 10 reps - Mini Squat with Counter Support - 1 x daily - 7 x weekly - 2 sets - 10 reps Patient Education - Office Posture [facility] CNTHERAPYon 06-11-2024 CNTHERAPY OT/PT/Speech Visit (PTWS) JAZ DUKES ([id number]) 1955 F Date Time Provider Department 06/11/24 11:30 AM DARRYL CARDENAS Date Time Provider Department Center 06/11/2024 11:30 AM [id number] CARDENAS Patricia Valentin Reason for Visit: Physical Therapy [503] Primary Visit Diagnosis:Cervicalgia [M54.2] Other Visit Diagnosis:Strain of left levator scapulae muscle, initial encounter [S46.866K] Allergies As of Date: 06/11/2024 Noted Allergy Reaction ALLERGEN ODS-VIVXZ-CVYIL BEE 10/28/2006 MOLD 11/23/2005 PROPOLIS (BEE GLUE) 07/22/2008 Date Reviewed: 06/05/2024 Reviewed by: Lachelle Zhang LPN - Fully Assessed Prescriptions as of 06/11/2024 - sertraline (ZOLOFT) 50 mg tablet Take 1 tablet by mouth once daily. Start with half a pill for a week and then go to a full pill - methocarbamol (ROBAXIN) 500 mg tablet Take 0.5 tablets by mouth at bedtime as needed. Can take half to one pill a day as needed - finasteride (PROPECIA) 1 mg tablet Take 1 tablet by mouth every afternoon. - estradiol (ESTRACE) 0.01 % (0.1 mg/gram) vaginal cream Use 1g vaginally 2 times per week. - tacrolimus (PROTOPIC) 0.1 % ointment Apply to affected area two times a day. - triamcinolone acetonide (KENALOG) 0.1 % cream Apply 1 application to affected area two times a day. Apply to affected area. Location: back - lisinopril (ZESTRIL) 5 mg tablet Take 1 tablet by mouth once daily. - ezetimibe (ZETIA) 10 mg tablet take 1 tablet daily - fluticasone (FLONASE) 50 mcg/actuation nasal spray Use 2 Sprays in each nostril once daily. Rinse mouth after use. Meds Comments as of 10/14/2015: [facility]. [facility] CBC W Auto Differential pane l (Bld)on 06-08-2024 Basophils (Bld) [#/Vol] 0.07 10*3/uL Normal <0.11 [facility] Comment on above: Order Comment: Speci men Type: BLOOD SPECIMENOrdering Facility: [facility] Address: [address] [place] [address] Performed By: #### 5 7021-8 ####[facility] LABCLIA [id number] [place] [address] [place] Basophils/100 WBC (Bld) 1.2 % [facility] Comment on above: Order Comment: Speci men Type: BLOOD SPECIMENOrdering Facility: [facility] Address: [address] [place] [address] Performed By: #### 5 7021-8 ####[facility] LABCLIA [id number] [address], [place] [address] [place] Differential cell count method Nom (Bld) Auto [facility] Comment on above: Order Comment: Speci men Type: BLOOD SPECIMENOrdering Facility: [facility] Address: [address] [place] [address] Performed By: #### 5 7021-8 ####[facility] LABCLIA [id number] [place] [address] [place] Eosinophils (Bld) [#/Vol] 0.43 10*3/uL Normal <0.46 [facility] Comment on above: Order Comment: Speci men Type: BLOOD SPECIMENOrdering Facility: [facility] Address: [address] [place] [address] Performed By: #### 5 7021-8 ####[facility] LABCLIA [id number] [place] [address] [place] Eosinophils/100 WBC (Bld) 7.1 % Normal [facility] Comment on above: Order Comment: Speci men Type: BLOOD SPECIMENOrdering Facility: [facility] Address: [address] [place] [address] Performed By: #### 5 7021-8 ####[facility] LABCLIA [id number] [place] [address] [place] Erythrocyte distribution width (RBC) [Ratio] 12.8 % Normal 11.5-15.0 [facility] Comment on above: Order Comment: Speci men Type: BLOOD SPECIMENOrdering Facility: [facility] Address: [address] [place] [address] Performed By: #### 5 7021-8 ####[facility] LABCLIA [id number] [place] [id number] [place] Hematocrit (Bld) [Volume fraction] 37.8 % Normal 36.0-46.0 [facility] Comment on above: Order Comment: Speci men Type: BLOOD SPECIMENOrdering Facility: [facility] Address: [address] [place] [address] Performed By: #### 5 7021-8 ####[facility] LABCLIA [id number] [place] [address] [place] Hemoglobin (Bld) [Mass/Vol] 12.6 g/dL Normal 11.5-15.5 [facility] Comment on above: Order Comment: Speci men Type: BLOOD SPECIMENOrdering Facility: [facility] Address: [address] [place] [address] Performed By: #### 5 7021-8 ####[facility] LABIA [id number] [place] [address] [place] Immature granulocytes (Bld) [#/Vol] 10*3/uL Normal <0.10 [facility] Comment on above: Order Comment: Speci men Type: BLOOD SPECIMENOrdering Facility: [facility] Address: [address] [place] [address] Performed By: #### 5 7021-8 ####[facility] LABIA [id number] [place] [address] [place] Immature granulocytes/100 WBC (Bld) 0.2 % Normal [facility] Comment on above: Order Comment: Speci men Type: BLOOD SPECIMENOrdering Facility: [facility] Address: [address] [place] [address] Performed By: #### 5 7021-8 ####[facility] LABIA [id number] [place] [address] [place] Lymphocytes (Bld) [#/Vol] 1.26 10*3/uL Normal 1.00-4.00 [facility] Comment on above: Order Comment: Speci men Type: BLOOD SPECIMENOrdering Facility: [facility] Address: [address] [place] [address] Performed By: #### 5 7021-8 ####[facility] LABIA [id number] [place] [address] [place] Lymphocytes/100 WBC (Bld) 20.9 % Normal [facility] Comment on above: Order Comment: Speci men Type: BLOOD SPECIMENOrdering Facility: [facility] Address: [address] [place] [address] Performed By: #### 5 7021-8 ####[facility] LABIA [id number] [place] [address] [place] MCH (RBC) [Entitic mass] 29.2 pg Normal 26.0-34.0 [facility] Comment on above: Order Comment: Speci men Type: BLOOD SPECIMENOrdering Facility: [facility] Address: [address] [place] [address] Performed By: #### 5 7021-8 ####[facility] DAYTONIA [id number] [place] [address] [place] MCHC (RBC) [Mass/Vol] 33.3 g/dL Normal 30.5-36.0 [facility] Comment on above: Order Comment: Speci men Type: BLOOD SPECIMENOrdering Facility: [facility] Address: [address] [place] [address] Performed By: #### 5 7021-8 ####[facility] LABIA [id number] [place] [address] [place] MCV (RBC) [Entitic vol] 87.5 fL Normal 80.0-100.0 [facility] Comment on above: Order Comment: Speci men Type: BLOOD SPECIMENOrdering Facility: [facility] Address: [address] [place] [address] Performed By: #### 5 7021-8 ####[facility] LABIA [id number] [place] [address] [place] Monocytes (Bld) [#/Vol] 0.45 10*3/uL Normal <0.87 [facility] Comment on above: Order Comment: Speci men Type: BLOOD SPECIMENOrdering Facility: [facility] Address: [facility] [place] [address] Performed By: #### 5 7021-8 ####[facility] LABCLIA [id number] [facility] [place] [id number] [place] Monocytes/100 WBC (Bld) 7.5 % Normal [facility] Comment on above: Order Comment: Speci men Type: BLOOD SPECIMENOrdering Facility: [facility] Address: [address] [place] [address] Performed By: #### 5 7021-8 ####[facility] LABCLIA [id number] [place] [address] [place] Neutrophils (Bld) [#/Vol] 3.80 10*3/uL Normal 1.45-7.50 [facility] Comment on above: Order Comment: Speci men Type: BLOOD SPECIMENOrdering Facility: [facility] Address: [address] [place] [address] Performed By: #### 5 7021-8 ####[facility] LABCLIA [id number] [place] [address] [place] Neutrophils/100 WBC (Bld) 63.1 % Normal [facility] Comment on above: Order Comment: Speci men Type: BLOOD SPECIMENOrdering Facility: [facility] Address: [address] [place] [address] Performed By: #### 5 7021-8 ####[facility] LABCLIA [id number] [place] [id number] [place] Nucleated RBC (Bld) [#/Vol] 10*3/uL Normal <0.01 [facility] Comment on above: Order Comment: Speci men Type: BLOOD SPECIMENOrdering Facility: [facility] Address: [address] [place] [address] Performed By: #### 5 7021-8 ####[facility] LABCLIA [id number] [address], [facility]95 [place] Nucleated RBC/100 WBC (Bld) [Ratio] 0.0 /100 WBC Normal [facility] Comment on above: Order Comment: Speci men Type: BLOOD SPECIMENOrdering Facility: [facility] Address: [address] [place] [address] Performed By: #### 5 7021-8 ####[facility] LABCLIA [id number] [address], [facility]95 [place] Platelet mean volume (Bld) [Entitic vol] 10.5 fL Normal 9.0-12.7 [facility] Comment on above: Order Comment: Speci men Type: BLOOD SPECIMENOrdering Facility: [facility] Address: [address] [place] [address] Performed By: #### 5 7021-8 ####[facility] LABIA [id number] [address], [place] [address] [place] Platelets (Bld) [#/Vol] 255 10*3/uL Normal 150-400 [facility] Comment on above: Order Comment: Speci men Type: BLOOD SPECIMENOrdering Facility: [facility] Address: [address] [place] [address] Performed By: #### 5 7021-8 ####[facility] LABCLIA [id number] [address], [facility]95 [place] RBC (Bld) [#/Vol] 4.32 10*6/uL Normal 3.90-5.20 [facility] Comment on above: Order Comment: Speci men Type: BLOOD SPECIMENOrdering Facility: [facility] Address: [address] [place] [address] Performed By: #### 5 7021-8 ####[facility] LABIA [id number] [address], [facility]95 [place] WBC (Bld) [#/Vol] 6.02 10*3/uL Normal 3.70-11.00 [facility] Comment on above: Order Comment: Speci men Type: BLOOD SPECIMENOrdering Facility: [facility] Address: [address] [place] [address] Performed By: #### 5 7021-8 ####[facility] LABCLIA [id number] [place] [address] [place] Comprehensive metabolic 2000 panelon 06-08-2024 Albumin [Mass/Vol] 4.2 g/dL Normal 3.9-4.9 [facility] Comment on above: Order Comment: Speci men Type: BLOOD SPECIMEN Ordering Facility: [facility] Address: [address] [place] [address] Performed By: #### 2 4323-8, 18176-3 #### [facility] LAB CLIA [id number] [address] [place] [address] [place] ALP [Catalytic activity/Vol] 60 U/L Normal 34-123 [facility] Comment on above: Order Comment: Speci men Type: BLOOD SPECIMEN Ordering Facility: [facility] Address: [address] [place] [address] Performed By: #### 2 4323-8, 41434-5 #### [facility] LAB CLIA [id number] [address] [place] [address] [place] ALT [Catalytic activity/Vol] 14 U/L Normal 7-38 [facility] Comment on above: Order Comment: Speci men Type: BLOOD SPECIMEN Ordering Facility: [facility] Address: [address] [place] [address] Performed By: #### 2 4323-8, 09442-2 #### [facility] LAB CLIA [id number] [address] [place] [address] [place] Anion gap [Moles/Vol] 7 mmol/L Low 8-15 [facility] Comment on above: Order Comment: Speci men Type: BLOOD SPECIMEN Ordering Facility: [facility] Address: [address] [place] [id number] Performed By: #### 2 4323-8, 37026-3 #### [facility] LAB CLIA [id number] [address] [place], [place] [address] [place] AST [Catalytic activity/Vol] 18 U/L Normal 13-35 [facility] Comment on above: Order Comment: Speci men Type: BLOOD SPECIMEN Ordering Facility: [facility] Address: [address] [place], [place] [address] Performed By: #### 2 4323-8, 52513-4 #### [facility] LAB CLIA [id number] [address] [place] [address] [place] Bilirubin [Mass/Vol] 1.0 mg/dL Normal 0.2-1.3 [facility] Comment on above: Order Comment: Speci men Type: BLOOD SPECIMEN Ordering Facility: [facility] Address: [address] [place], [place] [address] Performed By: #### 2 4323-8, 50293-3 #### [facility] LAB CLIA [id number] [address] [place] [address] [place] Calcium [Mass/Vol] 9.6 mg/dL Normal 8.5-10.2 [facility] Comment on above: Order Comment: Speci men Type: BLOOD SPECIMEN Ordering Facility: [facility] Address: [address] [place] [id number] Performed By: #### 2 4323-8, 26597-9 #### [facility] LAB CLIA [id number] [address] [place], [place] [address] [place] Chloride [Moles/Vol] 104 mmol/L Normal 98-107 [facility] Comment on above: Order Comment: Speci men Type: BLOOD SPECIMEN Ordering Facility: [facility] Address: [address] [place], [place] [address] Performed By: #### 2 4323-8, 56022-4 #### [facility] LAB CLIA [id number] [address] [place] [address] [place] CO2 [Moles/Vol] 28 mmol/L Normal 22-30 [facility] Comment on above: Order Comment: Speci men Type: BLOOD SPECIMEN Ordering Facility: [facility] Address: [address] [place] [address] Performed By: #### 2 4323-8, 87104-4 #### [facility] LAB CLIA [id number] [address] [place] [address] [place] Creatinine [Mass/Vol] 0.58 mg/dL Normal 0.58-0.96 [facility] Comment on above: Order Comment: Speci men Type: BLOOD SPECIMEN Ordering Facility: [facility] Address: [address] [place] [address] Performed By: #### 2 4323-8, 10163-1 #### [facility] LAB CLIA [id number] [address] [place] [address] [place] Creatinine and Glomerular filtration rate.predicted panel (S/P/Bld) 98 mL/min/1.73m??? Normal >=60 [facility] Comment on above: Order Comment: Speci men Type: BLOOD SPECIMEN Ordering Facility: [facility] Address: [address] [place] [address] Result Comment: Alla mated Glomerular Filtration Rate (eGFR) is calculated using the 2020 CKD-EPI creatinine equation. This equation utilizes serum creatinine, sex, and age as parameters. The creatinine assay has traceable calibration to isotope dilution-mass spectrometry. Refer to KDIGO guidelines for clinical interpretation. In patients with unstable renal function, e.g. those with acute kidney injury, the eGFR may not accurately reflect actual GFR. Performed By: #### 2 4323-8, 17560-0 #### [facility] LAB CLIA [id number] [address] [place] [address] [place] Glucose [Mass/Vol] 101 mg/dL High 74-99 [facility] Comment on above: Order Comment: Sabrina omalley Type: BLOOD SPECIMEN Ordering Facility: [facility] Address: [address] [place] [address] Result Comment: The [place] Diabetes Association (ADA) provides guidance for cutoff values for fasting glucose and random glucose. The ADA defines fasting as no caloric intake for at least 8 hours. Fasting plasma glucose results between 100 to 125 mg/dL indicate increased risk for diabetes (prediabetes). Fasting plasma glucose results greater than or equal to 126 mg/dL meet the criteria for diagnosis of diabetes. In the absence of unequivocal hyperglycemia, results should be confirmed by repeat testing. In a patient with classic symptoms of hyperglycemia or hyperglycemic crisis, random plasma glucose results greater than or equal to 200 mg/dL meet the criteria for diagnosis of diabetes. Reference: Standards of Medical Care in Diabetes 2016, [place] Diabetes Association. Diabetes Care. 2016.39(Suppl 1). Performed By: #### 2 4323-8, 51451-6 #### [facility] LAB CLIA [id number] [address] [place] [address] [place] Potassium [Moles/Vol] 3.7 mmol/L Normal 3.7-5.1 [facility] Comment on above: Order Comment: Sabrina omalley Type: BLOOD SPECIMEN Ordering Facility: [facility] Address: [address] [place] [address] Performed By: #### 2 4323-8, 76015-5 #### [facility] CLIA [id number] [address] [place] [address] [place] Protein [Mass/Vol] 6.4 g/dL Normal 6.3-8.0 [facility] Comment on above: Order Comment: Sabrina omalley Type: BLOOD SPECIMEN Ordering Facility: [facility] Address: [address] [place] [address] Performed By: #### 2 4323-8, 37834-5 #### [facility] CLIA [id number] [address] [place] [address] [place] Sodium [Moles/Vol] 139 mmol/L Normal 136-144 [facility] Comment on above: Order Comment: Speci men Type: BLOOD SPECIMEN Ordering Facility: [facility] Address: [address] [place] [address] Performed By: #### 2 4323-8, 52406-9 #### [facility] CLIA [id number] [address] [place] [address] [place] Urea nitrogen [Mass/Vol] 17 mg/dL Normal 7-21 [facility] Comment on above: Order Comment: Speci men Type: BLOOD SPECIMEN Ordering Facility: [facility] Address: [address] [place] [address] Performed By: #### 2 4323-8, 15092-8 #### [facility] CLIA [id number] [address] [place] [address] [place] Lipid 1996 panelon 5 Cholesterol [Mass/Vol] 191 mg/dL Normal <200 [facility] Comment on above: Order Comment: Speci men Type: BLOOD SPECIMEN Ordering Facility: [facility] Address: [address] [place] [address] Result Comment: <200 mg/dL, Desirable 200-239 mg/dL, Borderline high >239 mg/dL, High Performed By: #### 2 4323-8, 85772-0 #### [facility] CLIA [id number] [address] [place] [address] [place] Cholesterol in HDL [Mass/Vol] 66 mg/dL Normal >39 [facility] Comment on above: Order Comment: Speci men Type: BLOOD SPECIMEN Ordering Facility: [facility] Address: [address] [place] [address] Result Comment: 40-5 9 mg/dL, Acceptable >59 mg/dL, High: Negative risk factor for coronary heart disease <40 mg/dL, Low: Positive risk factor for coronary heart disease Performed By: #### 2 4323-8, 50251-3 #### [facility] CLIA [id number] [address] [place] [address] [place] Cholesterol in LDL [Mass/Vol] 101 mg/dL High <100 [facility] Comment on above: Order Comment: Sabrina omalley Type: BLOOD SPECIMEN Ordering Facility: [facility] Address: [address] [place] [address] Result Comment: <100 mg/dL, Optimal 100-129 mg/dL, Near optimal/above optimal 130-159 mg/dL, Borderline high 160-189 mg/dL, High >189 mg/dL, Very high Secondary prevention optimal LDL Cholesterol levels are recommended to be < 70 mg/dL Performed By: #### 2 4323-8, 81344-4 #### [facility] LAB IA [id number] [address] [place] [address] [place] Cholesterol in LDL/Cholesterol in HDL [Mass ratio] 1.53 {ratio} Normal <2.54 [facility] Comment on above: Order Comment: Sabrina men Type: BLOOD SPECIMEN Ordering Facility: [facility] Address: [address] [place] [address] Result Comment: Refe rence: 1. National Cholesterol Education Program ATP III Guideline At-A-Glance Quick Desk Reference: National Heart, Lung, and Blood [place]. National Institutes of Health. 2001: NIH Publication No. 01-3305. 2. An International Atherosclerosis Society position paper: global recommendations for the management of dyslipidemia: executive summary, Atherosclerosis. 2014: 232(2):410-413. Performed By: #### 2 4323-8, 18274-3 #### [facility] CLIA [id number] [address] [place] [address] [place] Cholesterol in VLDL [Mass/Vol] 24 mg/dL Normal <30 [facility] Comment on above: Order Comment: Sabrina omalley Type: BLOOD SPECIMEN Ordering Facility: [facility] Address: [address] [place] [address] Performed By: #### 2 4323-8, 03140-0 #### [facility] CLIA [id number] [address] [place] [address] [place] Cholesterol non HDL [Mass/Vol] 125 mg/dL Normal <130 [facility] Comment on above: Order Comment: Speci men Type: BLOOD SPECIMEN Ordering Facility: [facility] Address: [address] [place] [address] Result Comment: <130 mg/dL, Optimal 130-159 mg/dL, Near optimal/above optimal 160-189 mg/dL, Borderline high 190-219 mg/dL, High >219 mg/dL, Very high Secondary prevention optimal non HDL Cholesterol levels are recommended to be <100 mg/dL Performed By: #### 2 4323-8, 35654-3 #### [facility] CLIA [id number] [address] [place] [address] [place] Cholesterol.total/Cho lesterol in HDL [Mass ratio] 2.89 {ratio} Normal <5.10 [facility] Comment on above: Order Comment: Speci men Type: BLOOD SPECIMEN Ordering Facility: [facility] Address: [address] [place] [address] Performed By: #### 2 4323-8, 75468-3 #### [facility] CLIA [id number] [address] [place] [address] [place] FASTING TIME 13 hrs Normal [facility] Comment on above: Order Comment: Speci men Type: BLOOD SPECIMEN Ordering Facility: [facility] Address: [address] [place] [address] Performed By: #### 2 4323-8, 61775-4 #### [facility] CLIA [id number] [address] [place] [address] [place] Triglyceride [Mass/Vol] 121 mg/dL Normal <150 [facility] Comment on above: Order Comment: Speci men Type: BLOOD SPECIMEN Ordering Facility: [facility] Address: [address] [place] [address] Result Comment: <150 mg/dL, Normal 150-199 mg/dL, Borderline high 200-499 mg/dL, High >499 mg/dL, Very high Performed By: #### 2 4323-8, 04011-1 #### [facility] CLIA [id number] [address] [place] [address] [place] [id number] 06-06-2024 [id number] HNO ID: [id number] Author: DARRYL CARDENAS PT Service: ? Author Type: Physical Therapist Type: [id number] Filed: 06/06/2024 10:30 Note Text: [facility] Physical Therapy Plan of Care Certification Patient Name: Jaz Dukes : 1955 CCF #: [id number] Date: 06/04/2024 To: Micah High MD From Therapist: Darryl Cardenas PT RE: Patient Certification/ Recertification Your review, approval and electronic signature are required in order to comply with Payor: MMO MEDICARE / Plan: [employer] MEDADVANTAGE HMO / Product Type: HMO / regulations. The identified Physical Therapy PLAN OF CARE for the patient is as follows: M54.2 Cervicalgia (primary encounter diagnosis) S46.812A Strain of left levator scapulae muscle, initial encounter M25.562 Acute pain of left knee PLAN OF CARE UPDATE: Assessment: Jaz Dukes demonstrates difficulty with computer work and sitting. The patient has progressed toward goals. Patient continues to present with impairments in ADL's, overall function, range of motion, symptom management, and tissue tenderness that interfere with sitting, working . Current prognosis is Excellent due to: current objective clinical presentation, good overall health status, positive past response to therapy, within-session changes, good support system/ coping skills . The patient will benefit from continued skilled therapy services to meet the updated goals for this plan of care as noted below. Goals updated on 06/04/2024. Goals for Episode of Care: established 12/19/23 [place] in home exercise program. Met Patient will decrease pain rating by 2 points to meet minimal clinical important difference for numeric pain rating scale. Partially met Patient will increase active ROM of cervical spine and L knee to WNL to allow pt to to improve performance of ADLs. Progressing Patient will demonstrate increase in L knee strength to 4+/5 during manual muscle testing in order to improve function for basic self-care tasks, home management tasks, and prior functional tasks. Progressing Sleep throughout the night without pain/symptoms. Progressing Time Frame for Goals and Treatment : 07/14/24 Planned Interventions, Frequency, and Duration: 1x/week, 4 weeks Total Number of Visits Planned: 4 Patient to be seen for Therapeutic exercise (91446), Neuromuscular re-education (34504), Manual therapy (54907), Therapeutic activities (33859), Self-residential management (81844), Patient/Family/Caregive r Education, Body Mechanics Training PLAN FOR NEXT VISIT: Manual for symptom modulation, may try to trouble shoot computer set up to decrease pain on irritated tissue For further details regarding this patient refer to the Physical Therapy electronically documented visit dated 06/04/2024. Provider Attestation I have reviewed the treatment plan for Jaz Dukes, CCF# [id number] for the period of 06/06/24 -- 07/06/24, established on 06/04/2024. Signature certifies the need for therapy services. Normal [facility] CNOVon 06-05-2024 CNOV Office Visit (INTMWS ) JAZ DUKES ([id number]) 1955 F Date Time Provider Department 06/05/24 10:40 AM MICAH HIGH INTMWS During your visit today, we recorded the following information about you: Pulse Blood pressure Weight Height 75/minute 132/84 60.4 kg 1.549 m Micah High MD 06/05/2024 6:04 PM Signed Reason for Visit Patient presents with: Recheck: Stress and memory issues feels over loaded Jaz Dukes is a 68 year old female who presents here today for CPE. Health Maintenance BP Controlled (<130/80) Advance Directive Discussion Mammogram Screening HPI Emilee is a 68-year-old female with a history of HTN, HLD, depression, and anxiety, presenting for evaluation of increased anxiety and depression. Emilee reports exacerbation of anxiety and depression symptoms after discontinuing Zoloft. She has been managing her anxiety with Ativan, but has exhausted her supply. She attributes the increase in symptoms to the stress of managing the estate and trust of a friend, which she describes as overwhelming and complicated. She has considered resigning from this responsibility but was informed that she is too far along in the process to do so. Additionally, she recently experienced the loss of another friend, which has contributed to her emotional burden. Emilee also reports tension with her , who frequently expresses concern about her memory, fearing she may develop Alzheimer's disease like her father. This has led to increased anxiety for Emilee, particularly when she forgets things. She notes that her has backed off a lot more after she addressed the issue with him, but the concern still lingers. She denies any memory issues during a recent two-week trip to [place] to visit her sister, stating she was fine the whole time. She continues to take daily walks with her dog and her neighbor's dog, which she describes as her sanity saver. She reports feeling better after these walks. She is currently taking Zetia for HLD, lisinopril for HTN, and finasteride for hair loss. She has discontinued Zoloft and has been using Ativan for anxiety management. She also occasionally uses methocarbamol. She is undergoing physical therapy for stress incontinence and has been seeing Dr. Munoz for CBT for depression, although she has not made a recent appointment and is unsure how to schedule one. No problem-specific Assessment AND Plan notes found for this encounter. PAST MEDICAL HISTORY Diagnosis Date Abnormal glandular Papanicolaou smear of cervix 04/23/2005 Abn. 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 Hypertension Internal hemorrhoids without mention of complication Irregular menstrual cycle perimenopausal bleeding Snoring PAST SURGICAL HISTORY Procedure Laterality Date BIOPSY BREAST OPEN INCISIONAL 11/28/2000 left breast COLONOSCOPY FLX DX W/COLLJ SPEC WHEN PFRMD 05/17/2006 COLONOSCOPY FLX DX W/COLLJ SPEC WHEN PFRMD 06/16/2017 Colonoscopy COLPOSCOPY CERVIX UPPER/ADJACENT VAGINA 07/15/2000 Colposcopy CONIZATION CERVIX W/WO DANDC RPR ELTRD EXC 08/03/2000 LEEP-Cervix LIG/TRNSXJ FLP TUBE ABDL/VAG APPR UNI/BI 05/27/1992 Tubal ligation, BPS OTHER MOHS- removal of squamous cells PAST SURGICAL HISTORY OF 1981 Broken Nose Repair PAST SURGICAL HISTORY OF 09/17/2004 EMB PAST SURGICAL HISTORY OF 09/2004 BONE DENSITTY SKIN BX, 1 LESION 12/15/2000 basal cell CA, on face SKIN EXCISION 12/23/2021 excision skin cyst lower back TONSILLECTOMY PRIMARY/SECONDARY Tonsillectomy FAMILY HISTORY Problem Relation Age of Onset Diabetes Father non-insulin Cancer Father Bladder and Basil Cell Cancer Paternal Grandmother Ovarian age 45 Lipids Mother Hyperlipidemia,stroke Heart Mother 65 [place] Hypertension Mother Arthritis Mother Cancer Mother Skin cancer - unsure of cell type other (heartburn) Son other (Other) Other No breast/uterine/colon cancer other (melanoma) Daughter Social History Tobacco Use Smoking status: Never Smokeless tobacco: Never Vaping Use Vaping status: Never Used Substance Use Topics Alcohol use: Yes Alcohol/week: 14.0 standard drinks of alcohol Types: 14 Glasses of Wine (5oz) per week Drug use: No Past medical history, appointments, medications, allergies reviewed. Pertinent Lab/Diagnostic Studies are reviewed and discussed today Current Outpatient Medications: methocarbamol (ROBAXIN) 500 mg tablet finasteride (PROPECIA) 1 mg tablet tacrolimus (PROTOPIC) 0.1 % ointment triamcinolone acetonide (KENALOG) 0.1 % cream lisinopril (ZESTRIL) 5 mg tablet ezetimibe (ZETIA) 10 mg tablet fluticasone (FLONASE) 50 mcg/actuation nasal spray sertraline (ZOLOFT) 50 mg tablet estradiol (ESTRACE) 0.01 % (0.1 mg/gram) vaginal cream Revie (more content not included)... Normal [facility] CNTHERAPYon 06-04-2024 CNTHERAPY OT/PT/Speech Visit (PTWS) JAZ DUKES ([id number]) 1955 F Date Time Provider Department 06/04/24 10:45 AM DARRYL CARDENAS PTWS Date Time Provider Department Center 06/04/2024 10:45 AM [id number], SEAN PTWS Patricia Zurita Reason for Visit: PT Progress Note [1596] Primary Visit Diagnosis:Cervicalgia [M54.2] Other Visit Diagnoses:Strain of left levator scapulae muscle, initial encounter [S46.812A] Acute pain of left knee [M25.562] Allergies As of Date: 06/04/2024 Noted Allergy Reaction ALLERGEN [id number] BEE 10/28/2006 MOLD 11/23/2005 PROPOLIS (BEE GLUE) 07/22/2008 Date Reviewed: 02/21/2024 Reviewed by: Kendra Montilla MA - Fully Assessed Prescriptions as of 06/06/2024 - sertraline (ZOLOFT) 50 mg tablet Take 1 tablet by mouth once daily. Start with half a pill for a week and then go to a full pill - methocarbamol (ROBAXIN) 500 mg tablet Take 0.5 tablets by mouth at bedtime as needed. Can take half to one pill a day as needed - finasteride (PROPECIA) 1 mg tablet Take 1 tablet by mouth every afternoon. - estradiol (ESTRACE) 0.01 % (0.1 mg/gram) vaginal cream Use 1g vaginally 2 times per week. - tacrolimus (PROTOPIC) 0.1 % ointment Apply to affected area two times a day. - triamcinolone acetonide (KENALOG) 0.1 % cream Apply 1 application to affected area two times a day. Apply to affected area. Location: back - lisinopril (ZESTRIL) 5 mg tablet Take 1 tablet by mouth once daily. - ezetimibe (ZETIA) 10 mg tablet take 1 tablet daily - fluticasone (FLONASE) 50 mcg/actuation nasal spray Use 2 Sprays in each nostril once daily. Rinse mouth after use. Meds Comments as of 10/14/2015: [facility]. Normal [facility] Brain/Head without Contrasto n 05-10-2024 Brain/Head without Contrast [facility] Imaging Services [address] [place] [id number] Brain/Head without Contrast MR#: [id number] Acct: [id number] Name: JAZ DUKES Rep #: [id number] : 1955 F 68 From: Apolinar Rodriguez MD PCP: Dr. Micah High MD Status: REG ER Study: Brain/Head without Contrast Date of Exam: 08/29 Exam# [id number] Ordering Dr: Kartik Bello MD EXAM: BRAIN/HEAD WITHOUT CONTRAST CLINICAL HISTORY: Head trauma. COMPARISON: No relevant prior. TECHNIQUE: Contiguous axial scans of 3.75 mm slice thicknesses with sagittal and coronal reconstruction images. One or more dose reduction techniques were utilized (e.g., automated exposure control, adjustment of mA and/or kv according to patient size, use of iterative reconstruction technique). FINDINGS: Cerebrum: No intraparenchymal hemorrhage. No abnormal areas of encephalomalacia. No mass effect or midline shift. Fontana-white matter differentiation is normal. Ventricles and cisterns: Appropriate size for patient's age. Extra-axial fluid: Unremarkable. Posterior fossa: Unremarkable cerebellum. No abnormalities involving the brainstem. Paranasal sinuses: Normal. Vasculature: Atherosclerotic calcific disease in the carotid siphon. Mastoid air cells: Normal. Calvarium: Unremarkable. Soft tissues: Unremarkable. CT/Brain/Head without Contrast IMPRESSION: 1. No acute intracranial abnormalities are demonstrated. Reading Location: [place] [address] CC: Dr. Micah High MD; Dr. Kartik Bello MD Wrapper Selector: Signed Normal [facility] Emergency Department Summary on 05-10-2024 Emergency Department Summary [facility] Medical Records Department [address] [place] [id number] Emergency Department Summary 05/10/24 MR#: [id number] Acct: [id number] Name: JAZ DUKES Rep #: [id number] : 1955 68 From: Kartik Bello MD PCP: Dr. Miach High MD Status:REG ER Location: ED HPI HPI - Fall History of Present Illness Chief Complaint: Fall Informant: patient and spouse/S.O. Occured/Mechanism Occurred: Today Mechanism/Context: Yes same level fall and Yes slip Usually ambulates: Without assistance Pain/Injury Pain Location: head Quality of Pain: Dull and Aching Current Severity: Mild Maximum Severity: Moderate Associated Symptoms Associated Symptoms: Negative for Parasthesias, Weakness, Loss of function, Inability to ambulate, Loss of consciousness or Amnesia Narrative Narrative: 68-year-old female history of anxiety. Was outside slipped on the ice fell backwards striking back of her head. No LOC. She is on no blood thinners not even aspirin. Denies any other complaints. Has a mild headache. No nausea. This occurred just over an hour ago. Prior similar symptoms: No Recent Illness/Hospitalization : No PFSH PFSH Allergy/AdvReac Type Severity Reaction Status Date / Time No Known Allergies Allergy Verified 05/10/24 12:19 Social History household members: spouse housing: house Smoking Status: Never smoker ROS ROS ED ROS Narrative Denies recent illness. Headache post fall. Denies nausea or vomiting. Constitutional Constitutional ED: Denies chills or fever(s) ENT ENT ED: Denies ear pain Cardiovascular Cardiovascular: Denies chest pain Respiratory/Chest Respiratory/Chest: Denies cough Gastrointestinal Gastrointestinal: Denies abdominal pain, nausea or vomiting Genitourinary Genitourinary ED: Denies dysuria or hematuria Musculoskeletal Musculoskeletal: Denies arthralgias, back pain or neck pain Integumentary Denies abscess or Abrasions Neurologic Neurologic: Reports headache(s) Psychiatric Psychiatric: Denies anxiety Endocrine Endocrinology: Denies polydipsia Hematologic/Lymphatic Hematologic/Lymphatic: Denies easy bleeding, easy bruising or lymphadenopathy Allergic/Immunologic Allergic/Immunologic ED: Denies mouth swelling, tongue swelling or urticaria EXAM Physical Exam Narrative Exam Narrative: Well-appearing 68-year-old female sitting upright in bed. at bedside. Vital signs are stable afebrile. She does not look septic toxic or any distress. H EENT exam pupils round reactive light. Extra motions are intact. No facial droop. Moist mucous membranes. No trauma to her face. Posterior scalp there is a half dollar sized hematoma. No laceration. No blood or bleeding. Neck nontender. Trachea midline. C-spine nontender. Back and thoracic and lumbar spine nontender no bruising. Chest wall and ribs nontender. Lungs clear equal and symmetrical bilaterally. Heart regular rhythm rate about 90 no murmur. Abdomen soft nontender. Pelvic girdle intact. Hips are nontender. No shortening or rotation. Normal pulley man strength. Normal dorsi plantarflexion. Normal flexion extension both upper and lower extremities. Neurologically she is awake and alert no focal motor deficits. Answer questions following commands. GCS of 15. Const Vital Signs: 05/10/24 12:19 05/10/24 13:00 Temperature 97.1 F L Temperature Source Oral Pulse Rate 89 Respiratory Rate 16 Respiratory Effort Normal Non-Labored Respiratory Depth Normal Respiratory Pattern Normal Blood Pressure 186/96 H Blood Pressure Mean 126 Pulse Ox 98 99 Oxygen Delivery Method Room Air Room Air Positive well nourished and well developed; Negative for obese, cachectic, contractures or unkempt General Appearance ED: well developed and NAD; Negative for unkempt, cachectic or contractures Nutritional Appearance: Negative for cachectic or obese HEENT Reports normocephalic HEENT Narrative: Contusion posterior scalp size of a half dollar. No laceration. No blood or bleeding. Tender. trauma, contusion, hematoma and tenderness; Negative for atraumatic Eyes PERRL and EOMs intact bilaterally General Eye ED: Negative for pale conjunctiva or scleral icterus Neck full ROM, no lymphadenopathy and supple General: Negative for tenderness Chest Wall inspection of chest normal and palpation of chest normal Resp normal respiratory effort, no retractions and clear to auscultation bilaterally Effort and Inspection: Negative for pain with movement Auscultation: Negative for rales, rhonchi, wheezes, diminished lung sounds or other Cardio regular rate, regular rhythm, S1 normal heart sound, S2 normal heart sound and no murmurs Rate: Negative for bradycardia or tachycardic Rhythm: Negative for abnormal rhyt (more content not included)... Normal [facility] CNTHERAPYon 05-07-2024 CNTHERAPY OT/PT/Speech Visit (PTWS) JAZ DUKES ([id number]) 1955 F Date Time Provider Department 05/07/24 9:45 AM DARRYL CARDENAS PTWS Date Time Provider Department Center 05/07/2024 9:45 AM [id number], SEAN PTWS Patricia [place] Reason for Visit: PT Progress Note [1596] Primary Visit Diagnosis:Cervicalgia [M54.2] Other Visit Diagnoses:Strain of left levator scapulae muscle, initial encounter [S46.812A] Acute pain of left knee [M25.562] Allergies As of Date: 05/07/2024 Noted Allergy Reaction ALLERGEN [id number] BEE 10/28/2006 MOLD 11/23/2005 PROPOLIS (BEE GLUE) 07/22/2008 Date Reviewed: 02/21/2024 Reviewed by: Kendra Montilla MA - Fully Assessed Prescriptions as of 05/07/2024 - LORazepam (ATIVAN) 0.5 mg Take 1 tablet by mouth three times a day as needed for up to 7 days. - methocarbamol (ROBAXIN) 500 mg tablet Take 0.5 tablets by mouth at bedtime as needed. Can take half to one pill a day as needed - finasteride (PROPECIA) 1 mg tablet Take 1 tablet by mouth every afternoon. - estradiol (ESTRACE) 0.01 % (0.1 mg/gram) vaginal cream Use 1g vaginally 2 times per week. - tacrolimus (PROTOPIC) 0.1 % ointment Apply to affected area two times a day. - triamcinolone acetonide (KENALOG) 0.1 % cream Apply 1 application to affected area two times a day. Apply to affected area. Location: back - lisinopril (ZESTRIL) 5 mg tablet Take 1 tablet by mouth once daily. - sertraline (ZOLOFT) 100 mg tablet take 1 tablet daily - ezetimibe (ZETIA) 10 mg tablet take 1 tablet daily - fluticasone (FLONASE) 50 mcg/actuation nasal spray Use 2 Sprays in each nostril once daily. Rinse mouth after use. Meds Comments as of 10/14/2015: [facility]. Normal [facility] 05-02-2024 CNPN Telephone (INTMWS) JAZ DUKES ([id number]) 1955 F Date Time Provider Department 05/02/24 MICAH HIGH INTWS During your visit today, we recorded the following information about you: Leta Joseph LPN 05/02/2024 9:17 AM Signed Electronic PA rec'd and completed for lorazepam. Leta Joseph LPN 05/02/2024 9:28 AM Signed Prior authorization approved Payer: [employer] [phone] Note from payer: CaseId:[id number];Status: Approved;Review Type:Prior Auth;Coverage Start Date:04/02/2024;Coverag e End Date:05/02/2025; Approval Details Authorized from April 02, 2024 to May 02, 2025 Electronic appeal: Not supported View History Medication Being Authorized LORazepam (ATIVAN) 0.5 mg Take 1 tablet by mouth three times a day as needed for up to 7 days. Dispense: 21 tablet Refills: 0 Start: 05/01/2024 End: 05/08/2024 Class: Normal Diagnoses: Panic attack, Claustrophobia This order has been released to its destination. To be filled at: [address] [place] [address] [address] [facility] - [phone] Pt notified via my chart. Allergies As of Date: 05/02/2024 Noted Allergy Reaction ALLERGEN [id number] BEE 10/28/2006 MOLD 11/23/2005 PROPOLIS (BEE GLUE) 07/22/2008 Date Reviewed: 02/21/2024 Reviewed by: Kendra Montilla MA - Fully Assessed Reason for Visit: Insurance Authorization [1693] Prescriptions as of 05/02/2024 - LORazepam (ATIVAN) 0.5 mg Take 1 tablet by mouth three times a day as needed for up to 7 days. - methocarbamol (ROBAXIN) 500 mg tablet Take 0.5 tablets by mouth at bedtime as needed. Can take half to one pill a day as needed - finasteride (PROPECIA) 1 mg tablet Take 1 tablet by mouth every afternoon. - estradiol (ESTRACE) 0.01 % (0.1 mg/gram) vaginal cream Use 1g vaginally 2 times per week. - tacrolimus (PROTOPIC) 0.1 % ointment Apply to affected area two times a day. - triamcinolone acetonide (KENALOG) 0.1 % cream Apply 1 application to affected area two times a day. Apply to affected area. Location: back - lisinopril (ZESTRIL) 5 mg tablet Take 1 tablet by mouth once daily. - sertraline (ZOLOFT) 100 mg tablet take 1 tablet daily - ezetimibe (ZETIA) 10 mg tablet take 1 tablet daily - fluticasone (FLONASE) 50 mcg/actuation nasal spray Use 2 Sprays in each nostril once daily. Rinse mouth after use. Meds Comments as of 10/14/2015: [facility]. Problem List As Of Date 05/02/2024 Noted Resolved Mixed hyperlipidemia [E78.2] OTHER PSORIASIS [L40.8] 11/03/2005 PERS HX SKIN MALIGNANCY NEC [Z85.828] 11/03/2005 Major depressive disorder, recurrent episode (H*08/19/2010 Trigger middle finger of right hand [M65.331] 04/03/2012 Trigger thumb of left hand [M65.312] 04/03/2012 Primary osteoarthritis of right hand [M19.041] 12/08/2015 Anxiety [F41.9] 09/04/2018 Chronic bilateral low back pain without sciatic*01/14/2020 Chronic bilateral low back pain with bilateral *06/30/2020 Essential hypertension [I10] 01/05/2022 MARINE (stress urinary incontinence, female) [N39.*11/10/2023 Strain of left levator scapulae muscle [S46.812*12/20/2023 Cervicalgia [M54.2] 12/20/2023 Acute pain of left knee [M25.562] 12/20/2023 Encounter Status:Closed by LETA JOSEPH on 05/02/24 Normal [facility] CNTHERAPYon 05-01-2024 CNTHERAPY OT/PT/Speech Visit (PTWS) JAZ DUKES ([id number]) 1955 F Date Time Provider Department 05/01/24 10:45 AM DARRYL CARDENAS PTWS Date Time Provider Department Center 05/01/2024 10:45 AM [id number], SEAN PTWS Patricia Zurita Reason for Visit: Physical Therapy [503] Primary Visit Diagnosis:Cervicalgia [M54.2] Other Visit Diagnoses:Strain of left levator scapulae muscle, initial encounter [S46.812A] Acute pain of left knee [M25.562] Allergies As of Date: 05/01/2024 Noted Allergy Reaction ALLERGEN [id number] BEE 10/28/2006 MOLD 11/23/2005 PROPOLIS (BEE GLUE) 07/22/2008 Date Reviewed: 02/21/2024 Reviewed by: Kendra Montilla MA - Fully Assessed Prescriptions as of 05/01/2024 - methocarbamol (ROBAXIN) 500 mg tablet Take 0.5 tablets by mouth at bedtime as needed. Can take half to one pill a day as needed - finasteride (PROPECIA) 1 mg tablet Take 1 tablet by mouth every afternoon. - LORazepam (ATIVAN) 0.5 mg Take by mouth three times a day as needed. - estradiol (ESTRACE) 0.01 % (0.1 mg/gram) vaginal cream Use 1g vaginally 2 times per week. - tacrolimus (PROTOPIC) 0.1 % ointment Apply to affected area two times a day. - triamcinolone acetonide (KENALOG) 0.1 % cream Apply 1 application to affected area two times a day. Apply to affected area. Location: back - lisinopril (ZESTRIL) 5 mg tablet Take 1 tablet by mouth once daily. - sertraline (ZOLOFT) 100 mg tablet take 1 tablet daily - ezetimibe (ZETIA) 10 mg tablet take 1 tablet daily - fluticasone (FLONASE) 50 mcg/actuation nasal spray Use 2 Sprays in each nostril once daily. Rinse mouth after use. Meds Comments as of 10/14/2015: [facility]. Normal [facility] CNTHERAPYon 04-25-2024 CNTHERAPY OT/PT/Speech Visit (PTWS) JAZ DUKES ([id number]) 1955 F Date Time Provider Department 04/25/24 10:30 AM DARRYL CARDENAS PTMATT Date Time Provider Department Center 04/25/2024 10:30 AM [id number], SEAN PTWS Patricia Zurita Reason for Visit: Physical Therapy [503] Primary Visit Diagnosis:Cervicalgia [M54.2] Other Visit Diagnoses:Strain of left levator scapulae muscle, initial encounter [S46.812A] Acute pain of left knee [M25.562] Allergies As of Date: 04/25/2024 Noted Allergy Reaction ALLERGEN ITS-UUVCC-PUAVL BEE 10/28/2006 MOLD 11/23/2005 PROPOLIS (BEE GLUE) 07/22/2008 Date Reviewed: 02/21/2024 Reviewed by: Kendra Montilla MA - Fully Assessed Prescriptions as of 04/26/2024 - methocarbamol (ROBAXIN) 500 mg tablet Take 0.5 tablets by mouth at bedtime as needed. Can take half to one pill a day as needed - finasteride (PROPECIA) 1 mg tablet Take 1 tablet by mouth every afternoon. - LORazepam (ATIVAN) 0.5 mg Take by mouth three times a day as needed. - estradiol (ESTRACE) 0.01 % (0.1 mg/gram) vaginal cream Use 1g vaginally 2 times per week. - tacrolimus (PROTOPIC) 0.1 % ointment Apply to affected area two times a day. - triamcinolone acetonide (KENALOG) 0.1 % cream Apply 1 application to affected area two times a day. Apply to affected area. Location: back - lisinopril (ZESTRIL) 5 mg tablet Take 1 tablet by mouth once daily. - sertraline (ZOLOFT) 100 mg tablet take 1 tablet daily - ezetimibe (ZETIA) 10 mg tablet take 1 tablet daily - fluticasone (FLONASE) 50 mcg/actuation nasal spray Use 2 Sprays in each nostril once daily. Rinse mouth after use. Meds Comments as of 10/14/2015: [facility]. Normal [facility] CNTHERAPYon 04-18-2024 CNTHERAPY OT/PT/Speech Visit (PTWS) JAZ DUKES ([id number]) 1955 F Date Time Provider Department 04/18/24 10:30 AM DARRYL CARDENAS Date Time Provider Department Center 04/18/2024 10:30 AM [id number], SEAN PTMATT Zurita Reason for Visit: Physical Therapy [503] Primary Visit Diagnosis:Cervicalgia [M54.2] Other Visit Diagnoses:Strain of left levator scapulae muscle, initial encounter [S46.812A] Acute pain of left knee [M25.562] Allergies As of Date: 04/18/2024 Noted Allergy Reaction ALLERGEN [id number] BEE 10/28/2006 MOLD 11/23/2005 PROPOLIS (BEE GLUE) 07/22/2008 Date Reviewed: 02/21/2024 Reviewed by: Kendra Montilla MA - Fully Assessed Prescriptions as of 04/18/2024 - methocarbamol (ROBAXIN) 500 mg tablet Take 0.5 tablets by mouth at bedtime as needed. Can take half to one pill a day as needed - finasteride (PROPECIA) 1 mg tablet Take 1 tablet by mouth every afternoon. - LORazepam (ATIVAN) 0.5 mg Take by mouth three times a day as needed. - estradiol (ESTRACE) 0.01 % (0.1 mg/gram) vaginal cream Use 1g vaginally 2 times per week. - tacrolimus (PROTOPIC) 0.1 % ointment Apply to affected area two times a day. - triamcinolone acetonide (KENALOG) 0.1 % cream Apply 1 application to affected area two times a day. Apply to affected area. Location: back - lisinopril (ZESTRIL) 5 mg tablet Take 1 tablet by mouth once daily. - sertraline (ZOLOFT) 100 mg tablet take 1 tablet daily - ezetimibe (ZETIA) 10 mg tablet take 1 tablet daily - fluticasone (FLONASE) 50 mcg/actuation nasal spray Use 2 Sprays in each nostril once daily. Rinse mouth after use. Meds Comments as of 10/14/2015: [facility]. Normal [facility] [id number] 04-12-2024 [id number] HNO ID: [id number] Author: DARRYL CARDENAS PT Service: ? Author Type: Physical Therapist Type: [id number] Filed: 04/12/2024 13:02 Note Text: [facility] Physical Therapy Plan of Care Certification Patient Name: Jaz Dukes : 1955 [facility] #: [id number] Date: 04/12/2024 To: Micah High MD From Therapist: Darryl Cardenas PT RE: Patient Certification/ Recertification Your review, approval and electronic signature are required in order to comply with Payor: [employer] MEDICARE / Plan: [employer] MED[employer]VANT[employer] HMO / Product Type: HMO / regulations. The identified Physical Therapy PLAN OF CARE for the patient is as follows: M54.2 Cervicalgia (primary encounter diagnosis) S46.812A Strain of left levator scapulae muscle, initial encounter M25.562 Acute pain of left knee PLAN OF CARE UPDATE: Assessment: Jaz Dukes demonstrates moderate improvement in heavy exertion, sleeping, and driving. The patient has progressed toward goals. Patient continues to present with impairments in ADL's, overall function, range of motion, symptom management, and tissue tenderness that interfere with bending, lifting, working, sleeping . Current prognosis is Excellent due to: current objective clinical presentation, good overall health status, positive past response to therapy, within-session changes, good support system/ coping skills . The patient will benefit from continued skilled therapy services to meet the updated goals for this plan of care as noted below. Goals updated on 04/12/2024. Goals for Episode of Care: established 12/19/23 [place] in home exercise program. Met Patient will decrease pain rating by 2 points to meet minimal clinical important difference for numeric pain rating scale. Partially met Patient will increase active ROM of cervical spine and L knee to WNL to allow pt to to improve performance of ADLs. Progressing Patient will demonstrate increase in L knee strength to 4+/5 during manual muscle testing in order to improve function for basic self-care tasks, home management tasks, and prior functional tasks. Progressing Sleep throughout the night without pain/symptoms. Progressing Planned Interventions, Frequency, and Duration: 1x/week, 4 weeks Total Number of Visits Planned: 4 Patient to be seen for Therapeutic exercise (76151), Neuromuscular re-education (88713), Manual therapy (24232), Therapeutic activities (96479), Self-residential management (16341), Patient/Family/Caregive r Education, Body Mechanics Training PLAN FOR NEXT VISIT: manual as needed to L cervical mm For further details regarding this patient refer to the Physical Therapy electronically documented visit dated 04/12/2024. Provider Attestation I have reviewed the treatment plan for Jaz Dukes, [facility]# [id number] for the period of 04/12/24 -- 06/10/24, established on 04/12/2024. Signature certifies the need for therapy services. Normal [facility] CNTHERAPYon 04-12-2024 CNTHERAPY OT/PT/Speech Visit (PTWS) JAZ DUKES ([id number]) 1955 F Date Time Provider Department 04/12/24 10:45 AM DARRYL CARDENAS PTWS Date Time Provider Department Center 04/12/2024 10:45 AM [id number], SEAN PTWS [place] Reason for Visit: PT Progress Note [1596] Primary Visit Diagnosis:Cervicalgia [M54.2] Other Visit Diagnoses:Strain of left levator scapulae muscle, initial encounter [S46.812A] Acute pain of left knee [M25.562] Allergies As of Date: 04/12/2024 Noted Allergy Reaction ALLERGEN [id number] BEE 10/28/2006 MOLD 11/23/2005 PROPOLIS (BEE GLUE) 07/22/2008 Date Reviewed: 02/21/2024 Reviewed by: Kendra Montilla MA - Fully Assessed Prescriptions as of 04/12/2024 - methocarbamol (ROBAXIN) 500 mg tablet Take 0.5 tablets by mouth at bedtime as needed. Can take half to one pill a day as needed - finasteride (PROPECIA) 1 mg tablet Take 1 tablet by mouth every afternoon. - LORazepam (ATIVAN) 0.5 mg Take by mouth three times a day as needed. - estradiol (ESTRACE) 0.01 % (0.1 mg/gram) vaginal cream Use 1g vaginally 2 times per week. - tacrolimus (PROTOPIC) 0.1 % ointment Apply to affected area two times a day. - triamcinolone acetonide (KENALOG) 0.1 % cream Apply 1 application to affected area two times a day. Apply to affected area. Location: back - lisinopril (ZESTRIL) 5 mg tablet Take 1 tablet by mouth once daily. - sertraline (ZOLOFT) 100 mg tablet take 1 tablet daily - ezetimibe (ZETIA) 10 mg tablet take 1 tablet daily - fluticasone (FLONASE) 50 mcg/actuation nasal spray Use 2 Sprays in each nostril once daily. Rinse mouth after use. Meds Comments as of 10/14/2015: [facility]. Normal [facility] Stephanie 03-19-2024 CNPN Telephone (INTMWS) JAZ DUKES ([id number]) 1955 F Date Time Provider Department 03/19/24 MICAH HIGH INTWS During your visit today, we recorded the following information about you: Mary March 03/19/2024 8:19 AM Signed Patient made a mychart request for an appointment with you. It appears that she has not been seen since 2022. Is she able to still book an appointment and re-establish or/and does she need another referral from her PCP. Stuart Rojas PSYD 03/21/2024 8:11 PM Signed Yes, she is very welcome to schedule. Thank you for checking! Allergies As of Date: 03/19/2024 Noted Allergy Reaction ALLERGEN [id number] BEE 10/28/2006 MOLD 11/23/2005 PROPOLIS (BEE GLUE) 07/22/2008 Date Reviewed: 02/21/2024 Reviewed by: Kendra Montilla MA - Fully Assessed Reason for Visit: Appointment [186] Prescriptions as of 03/22/2024 - methocarbamol (ROBAXIN) 500 mg tablet Take 0.5 tablets by mouth at bedtime as needed. Can take half to one pill a day as needed - finasteride (PROPECIA) 1 mg tablet Take 1 tablet by mouth every afternoon. - LORazepam (ATIVAN) 0.5 mg Take by mouth three times a day as needed. - estradiol (ESTRACE) 0.01 % (0.1 mg/gram) vaginal cream Use 1g vaginally 2 times per week. - tacrolimus (PROTOPIC) 0.1 % ointment Apply to affected area two times a day. - triamcinolone acetonide (KENALOG) 0.1 % cream Apply 1 application to affected area two times a day. Apply to affected area. Location: back - lisinopril (ZESTRIL) 5 mg tablet Take 1 tablet by mouth once daily. - sertraline (ZOLOFT) 100 mg tablet take 1 tablet daily - ezetimibe (ZETIA) 10 mg tablet take 1 tablet daily - fluticasone (FLONASE) 50 mcg/actuation nasal spray Use 2 Sprays in each nostril once daily. Rinse mouth after use. Meds Comments as of 10/14/2015: [facility]. Problem List As Of Date 03/19/2024 Noted Resolved Mixed hyperlipidemia [E78.2] OTHER PSORIASIS [L40.8] 11/03/2005 PERS HX SKIN MALIGNANCY NEC [Z85.828] 11/03/2005 Major depressive disorder, recurrent episode (H*08/19/2010 Trigger middle finger of right hand [M65.331] 04/03/2012 Trigger thumb of left hand [M65.312] 04/03/2012 Primary osteoarthritis of right hand [M19.041] 12/08/2015 Anxiety [F41.9] 09/04/2018 Chronic bilateral low back pain without sciatic*01/14/2020 Chronic bilateral low back pain with bilateral *06/30/2020 Essential hypertension [I10] 01/05/2022 MARINE (stress urinary incontinence, female) [N39.*11/10/2023 Strain of left levator scapulae muscle [S46.812*12/20/2023 Cervicalgia [M54.2] 12/20/2023 Acute pain of left knee [M25.562] 12/20/2023 Encounter Status:Closed by MARY MARCH on 03/22/[address] [facility] CNTHERAPYon 03-08-2024 CNTHERAPY OT/PT/Speech Visit (PTWS) JAZ DUKES ([id number]) 1955 F Date Time Provider Department 03/08/24 1:15 PM DARRYL CARDENAS PTWS Date Time Provider Department Center 03/08/2024 1:15 PM [id number], SEAN PTWS Patricia Zurita Reason for Visit: PT Progress Note [1596] Primary Visit Diagnosis:Cervicalgia [M54.2] Other Visit Diagnoses:Strain of left levator scapulae muscle, initial encounter [S46.810A] Acute pain of left knee [M25.562] Allergies As of Date: 03/08/2024 Noted Allergy Reaction ALLERGEN [id number] BEE 10/28/2006 MOLD 11/23/2005 PROPOLIS (BEE GLUE) 07/22/2008 Date Reviewed: 02/21/2024 Reviewed by: Kendra Montilla MA - Fully Assessed Prescriptions as of 03/12/2024 - methocarbamol (ROBAXIN) 500 mg tablet Take 0.5 tablets by mouth at bedtime as needed. Can take half to one pill a day as needed - finasteride (PROPECIA) 1 mg tablet Take 1 tablet by mouth every afternoon. - LORazepam (ATIVAN) 0.5 mg Take by mouth three times a day as needed. - estradiol (ESTRACE) 0.01 % (0.1 mg/gram) vaginal cream Use 1g vaginally 2 times per week. - tacrolimus (PROTOPIC) 0.1 % ointment Apply to affected area two times a day. - triamcinolone acetonide (KENALOG) 0.1 % cream Apply 1 application to affected area two times a day. Apply to affected area. Location: back - lisinopril (ZESTRIL) 5 mg tablet Take 1 tablet by mouth once daily. - sertraline (ZOLOFT) 100 mg tablet take 1 tablet daily - ezetimibe (ZETIA) 10 mg tablet take 1 tablet daily - fluticasone (FLONASE) 50 mcg/actuation nasal spray Use 2 Sprays in each nostril once daily. Rinse mouth after use. Meds Comments as of 10/14/2015: [facility]. [facility] CNTHERAPYon 03-01-2024 CNTHERAPY OT/PT/Speech Visit (PTMERC) JAZ DUKES ([id number]) 1955 F Date Time Provider Department 03/01/24 10:30 AM LIZA PATRICIO Date Time Provider Department Center 03/01/2024 10:30 AM [id number], ARIEL M [facility] Reason for Visit: Physical Therapy [503] Primary Visit Diagnosis:MARINE (stress urinary incontinence, female) [N39.3] Allergies As of Date: 03/01/2024 Noted Allergy Reaction ALLERGEN [id number] BEE 10/28/2006 MOLD 11/23/2005 PROPOLIS (BEE GLUE) 07/22/2008 Date Reviewed: 02/21/2024 Reviewed by: Kendra Montilla MA - Fully Assessed Prescriptions as of 03/02/2024 - meloxicam (MOBIC) 15 mg tablet Take 1 tablet by mouth once daily. - methocarbamol (ROBAXIN) 500 mg tablet Take 0.5 tablets by mouth at bedtime as needed. Can take half to one pill a day as needed - finasteride (PROPECIA) 1 mg tablet Take 1 tablet by mouth every afternoon. - LORazepam (ATIVAN) 0.5 mg Take by mouth three times a day as needed. - estradiol (ESTRACE) 0.01 % (0.1 mg/gram) vaginal cream Use 1g vaginally 2 times per week. - tacrolimus (PROTOPIC) 0.1 % ointment Apply to affected area two times a day. - triamcinolone acetonide (KENALOG) 0.1 % cream Apply 1 application to affected area two times a day. Apply to affected area. Location: back - lisinopril (ZESTRIL) 5 mg tablet Take 1 tablet by mouth once daily. - sertraline (ZOLOFT) 100 mg tablet take 1 tablet daily - ezetimibe (ZETIA) 10 mg tablet take 1 tablet daily - fluticasone (FLONASE) 50 mcg/actuation nasal spray Use 2 Sprays in each nostril once daily. Rinse mouth after use. Meds Comments as of 10/14/2015: [facility]. [facility] CNTHERAPYon 02-23-2024 CNTHERAPY OT/PT/Speech Visit (PTMERC) JAZ DUKES ([id number]) 1955 F Date Time Provider Department 02/23/24 10:30 AM LIZA PATRICIO [facility] Date Time Provider Department Center 02/23/2024 10:30 AM [id number], ARIEL M [facility] Reason for Visit: Physical Therapy [503] Primary Visit Diagnosis:MARINE (stress urinary incontinence, female) [N39.3] Allergies As of Date: 02/23/2024 Noted Allergy Reaction ALLERGEN [id number] BEE 10/28/2006 MOLD 11/23/2005 PROPOLIS (BEE GLUE) 07/22/2008 Date Reviewed: 02/21/2024 Reviewed by: Kendra Montilla MA - Fully Assessed Prescriptions as of 02/23/2024 - meloxicam (MOBIC) 15 mg tablet Take 1 tablet by mouth once daily. - methocarbamol (ROBAXIN) 500 mg tablet Take 0.5 tablets by mouth at bedtime as needed. Can take half to one pill a day as needed - finasteride (PROPECIA) 1 mg tablet Take 1 tablet by mouth every afternoon. - LORazepam (ATIVAN) 0.5 mg Take by mouth three times a day as needed. - estradiol (ESTRACE) 0.01 % (0.1 mg/gram) vaginal cream Use 1g vaginally 2 times per week. - tacrolimus (PROTOPIC) 0.1 % ointment Apply to affected area two times a day. - triamcinolone acetonide (KENALOG) 0.1 % cream Apply 1 application to affected area two times a day. Apply to affected area. Location: back - lisinopril (ZESTRIL) 5 mg tablet Take 1 tablet by mouth once daily. - sertraline (ZOLOFT) 100 mg tablet take 1 tablet daily - ezetimibe (ZETIA) 10 mg tablet take 1 tablet daily - fluticasone (FLONASE) 50 mcg/actuation nasal spray Use 2 Sprays in each nostril once daily. Rinse mouth after use. Meds Comments as of 10/14/2015: [facility]. [facility] CNOVon 02-21-2024 CNOV Office Visit (INTMWS ) JAZ DUKES ([id number]) 1955 F Date Time Provider Department 02/21/24 1:00 PM MICAH HIGH INTMWS During your visit today, we recorded the following information about you: Pulse Respiration Blood pressure Weight 70/minute 16/minute 124/80 60.8 kg Micah High MD 02/21/2024 4:15 PM Signed Jaz Ledesma Ernst is a 68 year old female here for a Medicare wellness visit. Medicare Health Risk Assessment General Health Very good Exercise: Minutes/Day 60 min Exercise: Days/Week 0 days she does this 7 days a week. Alcohol: Daily Use 2-3 times a week Alcohol: Drinks/Day 1 or 2 Alcohol: 6 or more drinks Never Feel off balance No Concerns: Teeth/Dentures No Concerns: Sexual function No Troubled by feelings Anxious; Stressed Frequency: Eating healthy diet Nearly every day ADLs requiring help None of the above Safety precautions in home/vehicle Yes Smoke, vape, chews tobacco No Difficulty hearing No Difficulty seeing No Current Providers Specialists: I have reviewed specialist-related care of the patient in the medical record. Medical/Family history review Reviewed and updated problem list, medical/surgical/family /social history, medications, and allergies. Opioid use review Opioid Medications (last 90 days) No data to display Anxiety/Depression screening Recommendation: no further intervention at this time Cognitive screening Mini Cog Score: 4 Cognitive screening reviewed and No further action needed (score 3-5). Functional Observation Was the patient's Timed Up AND Go test unsteady or >= 12 seconds? No Advance Care Planning Surrogate decision maker and/or advance care plan documented Measurements BP 124/80 Pulse 70 Resp 16 Wt 60.8 kg (134 lb) LMP 12/12/2009 BMI 25.11 kg/m? Vision Screening: Follows with optometry/ophthalmology Assessment/Plan Medicare annual wellness visit, subsequent (Z00.00) - Counseled on healthy diet and regular exercise - Fall avoidance information provided - Personalized prevention plan provided Reason for Visit Patient presents with: Medicare Wellness Exam Jaz Dukes is a 68 year old female who presents here today for Above Complaints.. Health Maintenance Advance Directive Discussion HPI Emilee is a very pleasant 68-year-old with a past medical history of hypertension, depression, hyperlipidemia, anxiety especially for flying and hair loss. Some stress in the past week, with friend who is sick, and passed, and other unexpected and issues. and she has to care for her cats, helps taking care of her OLIVIA. All the illness can be overwhelming for her. She is on zoloft at 100 mgs and it is doing well for her. 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 On Minoxidil anad finsteride and she is growing back hair slowly. She is on the minoxidil and finasteride. Left knee pain: she walks at the [employer], usually walks there. She fell on her left knee and since then she has been having trouble with water under the knee at the end of the day. In the evening and night it is all swollen. In the morning when she wakes up it and moves it, it hurts her. Resting does not hurt. During the day it gets worse and swelling in the evening with out much pain. It is kind of consistent but more swollen in the evening. Brufen helps relieve the pain. She is also taking the benadryl helps her. Has not used a knee brace still. Update 02/21/2024: Patient still has some pain but manageable, changing of shoes helped her. Patient has been having shoulder pain for the past few weeks, certain movements maker her feel like she has a stabbing pain at the point where the levator scapula is attached. She is on the zetia, for her lipids, ldl is almost at target. No problem-specific Assessment AND Plan notes found for this encounter. PAST MEDICAL HISTORY Diagnosis Date Abnormal glandular Papanicolaou smear of cervix 04/23/2005 Abn. 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 Hypertension Internal hemorrhoids without mention of complication Irregular menstrual cycle perimenopausal bleeding Snoring PAST SURGICAL HISTORY Procedure Laterality Date BIOPSY BREAST OPEN INCISIONAL 11/28/2000 left breast COLONOSCOPY FLX DX W/COLLJ SPEC WHEN PFRMD 05/17/2006 COLONOSCOPY FLX DX W/COLLJ SPEC WHEN PFRMD 06/16/2017 Colonoscopy COLPOSCOPY CERVIX UPPER/ADJACENT VAGINA 07/15/2000 Colposcopy CONIZATION CERVIX W/WO DANDC RPR ELTRD EXC 08/03/2000 LEEP-Cervix LIG/TRNSXJ FLP TUBE ABDL/VAG APPR UNI/BI 05/27/1992 Tubal ligation, BPS OTHER MOHS- removal of squamous cells PAST SURGICAL HISTORY OF 1981 Broken Nose Repair PAST SURGICAL HISTORY OF 09/17/2004 EMB PAST SURGICAL HISTOR (more content not included)... [facility] [id number] 02-17-2024 [id number] HNO ID: [id number] Author: DARRYL CARDENAS PT Service: ? Author Type: Physical Therapist Type: [id number] Filed: 02/17/2024 15:59 Note Text: [facility] Physical Therapy Plan of Care Certification Patient Name: Jaz Dukes : 1955 CC #: [id number] Date: 02/15/2024 To: Micah High MD From Therapist: Darryl Cardenas PT RE: Patient Certification/ Recertification Your review, approval and electronic signature are required in order to comply with Payor: [employer]MO MEDICARE / Plan: [employer] MEDADVANTAGE HMO / Product Type: HMO / regulations. The identified Physical Therapy PLAN OF CARE for the patient is as follows: M54.2 Cervicalgia (primary encounter diagnosis) S46.812A Strain of left levator scapulae muscle, initial encounter M25.562 Acute pain of left knee PLAN OF CARE UPDATE: Assessment: Jaz Dukes demonstrates moderate improvement in rising from a chair, standing, walking, and stair negotiation. The patient has progressed toward goals. Patient continues to present with impairments in ADL's, overall function, strength, and symptom management that interfere with walking, stair negotiation, kneeling, squatting . Current prognosis is Excellent due to: current objective clinical presentation, good overall health status, positive past response to therapy, within-session changes, good support system/ coping skills . The patient will benefit from continued skilled therapy services to meet the updated goals for this plan of care as noted below. Goals updated on 02/17/2024. Goals for Episode of Care: established 11/10/23 Patient demonstrates independence and compliance with home exercise program. Patient to increase strength of pelvic floor to Power 5/5, Endurance 10/10, and Repetitions 10/10 in order to improve bladder/bowel control. Patient to correctly isolate pelvic floor muscles without compensatory patterns of breath holding, adductor use, gluteal use, and abdominal use to improve bladder/bowel control. Patient reports decreased frequency of urine/stool leakage to 0 times per day to demonstrate improved bladder/bowel control and increase confidence in community/social settings. Patient reports 100% less bladder/bowel leaks with external trigger to avoid incontinent episodes. Patient reports 100% improvement in bladder/bowel leaks while coughing/sneezing compared to evaluation in order to increase bladder and bowel function in activities of daily living. Patient can perform all activities of daily living, work, and recreational activities with 100 % bladder/bowel continence. Patient Goals: normal bladder function Knee and neck goals: Goals for Episode of Care: established 12/19/23 [place] in home exercise program. Met Patient will decrease pain rating by 2 points to meet minimal clinical important difference for numeric pain rating scale. Partially met Patient will increase active ROM of cervical spine and L knee to WNL to allow pt to to improve performance of ADLs. Progressing Patient will demonstrate increase in L knee strength to 4+/5 during manual muscle testing in order to improve function for basic self-care tasks, home management tasks, and prior functional tasks. Progressing Sleep throughout the night without pain/symptoms. Progressing Time Frame for Goals and Treatment : 05/02/24 Planned Interventions, Frequency, and Duration: 1x/week, 8 weeks Total Number of Visits Planned: 8 Patient to be seen for Therapeutic exercise (30726), Neuromuscular re-education (46308), Manual therapy (45076), Therapeutic activities (85277), Self-residential management (37970), Gait Training (52775), Patient/Family/Caregive r Education, Body Mechanics Training PLAN FOR NEXT VISIT: Continue quad strengthening per tolerance For further details regarding this patient refer to the Physical Therapy electronically documented visit dated 02/15/2024. Provider Attestation I have reviewed the treatment plan for Jaz Baltazar Dukes, [facility]# [id number] for the period of 02/18/24 -- 04/20/24, established on 02/15/2024. Signature certifies the need for therapy services. [facility] CNTHERAPYon 02-15-2024 CNTHERAPY OT/PT/Speech Visit (PTWS) JAZ DUKES ([id number]) 1955 F Date Time Provider Department 02/15/24 1:00 PM DARRYL CARDENAS PTWS Date Time Provider Department Center 02/15/2024 1:00 PM [id number], SEAN PTWS Patricia Zurita Reason for Visit: PT Progress Note [1596] Primary Visit Diagnosis:Cervicalgia [M54.2] Other Visit Diagnoses:Strain of left levator scapulae muscle, initial encounter [S46.812A] Acute pain of left knee [M25.562] Allergies As of Date: 02/15/2024 Noted Allergy Reaction ALLERGEN [id number] BEE 10/28/2006 MOLD 11/23/2005 PROPOLIS (BEE GLUE) 07/22/2008 Date Reviewed: 02/07/2024 Reviewed by: Vicky Hannah LPN - Fully Assessed Prescriptions as of 02/17/2024 - meloxicam (MOBIC) 15 mg tablet Take 1 tablet by mouth once daily. - methocarbamol (ROBAXIN) 500 mg tablet Take 0.5 tablets by mouth at bedtime as needed. Can take half to one pill a day as needed - minoxidil (LONITEN) 2.5 mg tablet take 1/4 OF a tablet EVERY DAY - finasteride (PROPECIA) 1 mg tablet Take 1 tablet by mouth every afternoon. - LORazepam (ATIVAN) 0.5 mg Take by mouth three times a day as needed. - estradiol (ESTRACE) 0.01 % (0.1 mg/gram) vaginal cream Use 1g vaginally 2 times per week. - EPINEPHrine (EPIPEN) 0.3 mg/0.3 mL auto-injector Inject 0.3 mL intramuscularly as directed. use as directed for allergic reaction. Seek emergent medical immediately after use. - tacrolimus (PROTOPIC) 0.1 % ointment Apply to affected area two times a day. - triamcinolone acetonide (KENALOG) 0.1 % cream Apply 1 application to affected area two times a day. Apply to affected area. Location: back - lisinopril (ZESTRIL) 5 mg tablet Take 1 tablet by mouth once daily. - sertraline (ZOLOFT) 100 mg tablet take 1 tablet daily - ezetimibe (ZETIA) 10 mg tablet take 1 tablet daily - sodium chloride (SALINE NASAL) 0.65 % nasal spray Use 2-3 Sprays in the nose three times a day. - fluticasone (FLONASE) 50 mcg/actuation nasal spray Use 2 Sprays in each nostril once daily. Rinse mouth after use. Meds Comments as of 10/14/2015: [facility]. Department Of Sociology Chair: Therapy (PT/OT/Speech/Resp) ID: [id number] 02/15/2024 1:40 PM Author: DARRYL CARDENAS Signed by DARRYL CARDENAS PT on 02/15/2024 at 1:40 PM Document text: Program_ID:[id number] Access Code: [email or web address] URL: [email or web address]/ Date: 02-15-2024 Prepared By: Darryl Cardenas Program Notes Exercises - Gentle Levator Scapulae Stretch - 1 x daily - 7 x weekly - 3 sets - 3 reps - Seated Upper Trapezius Stretch - 1 x daily - 7 x weekly - 3 sets - 3 reps - Seated Scapular Retraction - 1 x daily - 7 x weekly - 3 sets - 10 reps - Active Straight Leg Raise with Quad Set - 1-2 x daily - 7 x weekly - 2 sets - 5-10 reps - Sidelying Hip Abduction - 1-2 x daily - 7 x weekly - 2 sets - 10 reps - Shoulder extension with resistance - Neutral - 1 x daily - 7 x weekly - 2-3 sets - 10 reps - Shoulder External Rotation and Scapular Retraction with Resistance - 1 x daily - 7 x weekly - 2-3 sets - 10 reps - Clamshell - 2 x daily - 7 x weekly - 2 sets - 10 reps - Seated Long Arc Quad - 2 x daily - 7 x weekly - 2 sets - 10 reps - Step Up - 1 x daily - 7 x weekly - 2 sets - 10 reps Addendum Therapy (PT/OT/Speech/Resp) ID: [id number] 02/15/2024 1:40 PM Author: DARRYL CARDENAS Signed by DARRYL CARDENAS PT on 02/15/2024 at 1:40 PM * * * This document replaces document [id number] * * * Document text: Program_ID:[id number] Access Code: [email or web address] URL: [email or web address]://[email or web address] .[employer]/ Date: 02-15-2024 Prepared By: Darryl Cardenas Program Notes Exercises - Gentle Levator Scapulae Stretch - 1 x daily - 7 x weekly - 3 sets - 3 reps - Seated Upper Trapezius Stretch - 1 x daily - 7 x weekly - 3 sets - 3 reps - Seated Scapular Retraction - 1 x daily - 7 x weekly - 3 sets - 10 reps - Active Straight Leg Raise with Quad Set - 1-2 x daily - 7 x weekly - 2 sets - 5-10 reps - Sidelying Hip Abduction - 1-2 x daily - 7 x weekly - 2 sets - 10 reps - Shoulder extension with resistance - Neutral - 1 x daily - 7 x weekly - 2-3 sets - 10 reps - Shoulder External Rotation and Scapular Retraction with Resistance - 1 x daily - 7 x weekly - 2-3 sets - 10 reps - Clamshell - 2 x daily - 7 x weekly - 2 sets - 10 reps - Seated Long Arc Quad - 2 x daily - 7 x weekly - 2 sets - 10 reps - Step Up - 1 x daily - 7 x weekly - 2 sets - 10 reps - Mini Squat with Counter Support - 1 x daily - 7 x weekly - 2 sets - 10 reps [facility] THERAPY NTon 02-15-2024 THERAPY NT HNO ID: [id number] Author: DARRYL CARDENAS PT Service: ? Author Type: Physical Therapist Type: Therapy (PT/OT/Speech/Resp) Filed: 02/15/2024 13:40 Note Text: Program_ID:[id number] Access Code: [email or web address] URL: [email or web address]://[email or web address] .[employer]/ Date: 02-15-2024 Prepared By: Darryl Cardenas Program Notes Exercises - Gentle Levator Scapulae Stretch - 1 x daily - 7 x weekly - 3 sets - 3 reps - Seated Upper Trapezius Stretch - 1 x daily - 7 x weekly - 3 sets - 3 reps - Seated Scapular Retraction - 1 x daily - 7 x weekly - 3 sets - 10 reps - Active Straight Leg Raise with Quad Set - 1-2 x daily - 7 x weekly - 2 sets - 5-10 reps - Sidelying Hip Abduction - 1-2 x daily - 7 x weekly - 2 sets - 10 reps - Shoulder extension with resistance - Neutral - 1 x daily - 7 x weekly - 2-3 sets - 10 reps - Shoulder External Rotation and Scapular Retraction with Resistance - 1 x daily - 7 x weekly - 2-3 sets - 10 reps - Clamshell - 2 x daily - 7 x weekly - 2 sets - 10 reps - Seated Long Arc Quad - 2 x daily - 7 x weekly - 2 sets - 10 reps - Step Up - 1 x daily - 7 x weekly - 2 sets - 10 reps - Mini Squat with Counter Support - 1 x daily - 7 x weekly - 2 sets - 10 reps [facility] THERAPY NT HNO ID: [id number] Author: DARRYL CARDENAS PT Service: ? Author Type: Physical Therapist Type: Therapy (PT/OT/Speech/Resp) Filed: 02/15/2024 13:40 Note Text: Program_ID:[id number] Access Code: [email or web address] URL: [email or web address]://[email or web address] .[employer]/ Date: 02-15-2024 Prepared By: Darryl Cardenas Program Notes Exercises - Gentle Levator Scapulae Stretch - 1 x daily - 7 x weekly - 3 sets - 3 reps - Seated Upper Trapezius Stretch - 1 x daily - 7 x weekly - 3 sets - 3 reps - Seated Scapular Retraction - 1 x daily - 7 x weekly - 3 sets - 10 reps - Active Straight Leg Raise with Quad Set - 1-2 x daily - 7 x weekly - 2 sets - 5-10 reps - Sidelying Hip Abduction - 1-2 x daily - 7 x weekly - 2 sets - 10 reps - Shoulder extension with resistance - Neutral - 1 x daily - 7 x weekly - 2-3 sets - 10 reps - Shoulder External Rotation and Scapular Retraction with Resistance - 1 x daily - 7 x weekly - 2-3 sets - 10 reps - Clamshell - 2 x daily - 7 x weekly - 2 sets - 10 reps - Seated Long Arc Quad - 2 x daily - 7 x weekly - 2 sets - 10 reps - Step Up - 1 x daily - 7 x weekly - 2 sets - 10 reps [facility] CNOVon 02-07-2024 CNOV Office Visit (PODIWS ) JAZ DUKES ([id number]) 1955 F Date Time Provider Department 02/07/24 1:45 PM MICHEAL YEH PODIWSkye During your visit today, we recorded the following information about you: Vicky HannahABEL 02/07/2024 2:09 PM Signed AMB ROOMING INTAKE FLOWSHEET DATA Pain Pain Level: 10 Pain Location: Toe Description: Stabbing Duration Amount of Time: 3 Duration Units: Months Frequency: Intermittent Intervention/Comfort measure: Relaxation, Reposition Patient presents with: Right Great Toe - New, Bunion, Pain ABEL Butler Matthew 02/07/2024 2:09 PM Signed Initial Podiatric Office Visit: Chief Complaint: This 68 year old female who presents with chief complaint:bunion right foot HPI Patient presents to clinic for evaluation of right foot. She has bunion of the right foot that has been causing her pain for the past few months. She states there is pain to the medial eminence of the right great toe but also has pain with movement of the toe She likes to walk and has pain with walking She has noticed pain when sleeping that leads to waking her up. Patient has used lidocaine patch which does provide some relief. PAIN EVALUATION 02/07/2024 1342 Pain Level: 10 Pain Location: Toe Description: Stabbing Duration Amount of Time: 3 Duration Units: Months Frequency: Intermittent Intervention/Comfort measure: Relaxation;Reposition Hemoglobin A1C (%) Date Value 11/10/2022 5.3 02/16/2020 5.6 PCP: Micah High MD PAST MEDICAL HISTORY Diagnosis Date Abnormal glandular Papanicolaou smear of cervix 04/23/2005 Abn. 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 Can take half to one pill a day as needed finasteride (PROPECIA) 1 mg tablet Take 1 tablet by mouth every afternoon. LORazepam (ATIVAN) 0.5 mg Take by mouth three times a day as needed. estradiol (ESTRACE) 0.01 % (0.1 mg/gram) vaginal cream Use 1g vaginally 2 times per week. EPINEPHrine (EPIPEN) 0.3 mg/0.3 mL auto-injector Inject 0.3 mL intramuscularly as directed. use as directed for allergic reaction. Seek emergent medical immediately after use. tacrolimus (PROTOPIC) 0.1 % ointment Apply to affected area two times a day. triamcinolone acetonide (KENALOG) 0.1 % cream Apply 1 application to affected area two times a day. Apply to affected area. Location: back lisinopril (ZESTRIL) 5 mg tablet Take 1 tablet by mouth once daily. sertraline (ZOLOFT) 100 mg tablet take 1 tablet daily ezetimibe (ZETIA) 10 mg tablet take 1 tablet daily sodium chloride (SALINE NASAL) 0.65 % nasal spray Use 2-3 Sprays in the nose three times a day. fluticasone (FLONASE) 50 mcg/actuation nasal spray Use 2 Sprays in each nostril once daily. Rinse mouth after use. minoxidil (LONITEN) 2.5 mg tablet take 1/4 OF a tablet EVERY DAY No current facility-administered medications for this visit. ALLERGIES Allergen Reactions Allergen Ext-Venom-* Mold Propolis (Bee Glue) PAST SURGICAL HISTORY Procedure Laterality Date BIOPSY BREAST OPEN INCISIONAL 11/28/2000 left breast COLONOSCOPY FLX DX W/COLLJ SPEC WHEN PFRMD 05/17/2006 COLONOSCOPY FLX DX W/COLLJ SPEC WHEN PFRMD 06/16/2017 Colonoscopy COLPOSCOPY CERVIX UPPER/ADJACENT VAGINA 07/15/2000 Colposcopy CONIZATION CERVIX W/WO DANDC RPR ELTRD EXC 08/03/2000 LEEP-Cervix LIG/TRNSXJ FLP TUBE ABDL/VAG APPR UNI/BI 05/27/1992 Tubal ligation, BPS OTHER MOHS- removal of squamous cells PAST SURGICAL HISTORY OF 1981 Broken Nose Repair PAST SURGICAL HISTORY OF 09/17/2004 EMB PAST SURGICAL HISTORY OF 09/2004 BONE DENSITTY SKIN BX, 1 LESION 12/15/2000 basal cell CA, on face SKIN EXCISION 12/23/2021 excision skin cyst lower back TONSILLECTOMY PRIMARY/SECONDARY Tonsillectomy FAMILY HISTORY Problem Relation Age of Onset Diabetes Father non-insulin Cancer Father Bladder and Basil Cell Cancer Paternal Grandmother Ovarian age 45 Lipids Mother Hyperlipidemia,stroke Heart Mother 65 [place] Hypertension Mother Arthritis Mother Cancer Mother Skin cancer - unsure of cell type other (heartburn) Son other (Other) Other No breast/uterine/colon cancer other (melanoma) Daughter Social History Tobacco Use Smoking status: Never Smokeless tobacco: Never Vaping Use Vaping status: Never Used Substance Use Topics Alcohol use: Yes Alcohol/week: 14.0 standard drinks of alcohol Types: 14 Glasses of Wine (5oz) per week Drug use: No REVIEW OF SYSTEMS GENERAL: Negative for Malaise, significant weight loss, fever RESP (more content not included)... Normal [facility] CNTHERAPYon 02-07-2024 CNTHERAPY OT/PT/Speech Visit (PTWS) JAZ DUKES ([id number]) 1955 F Date Time Provider Department 02/07/24 11:00 AM GEMMA OLMEDO PTMATT Date Time Provider Department [place] 02/07/2024 11:00 AM [id number], MARIAH PTMATT [place] Reason for Visit: Physical Therapy [503] Primary Visit Diagnosis:Cervicalgia [M54.2] Other Visit Diagnoses:Strain of left levator scapulae muscle, initial encounter [S46.812A] Acute pain of left knee [M25.562] Allergies As of Date: 02/07/2024 Noted Allergy Reaction ALLERGEN [id number] BEE 10/28/2006 MOLD 11/23/2005 PROPOLIS (BEE GLUE) 07/22/2008 Date Reviewed: 02/07/2024 Reviewed by: Vicky Hannah LPN - Fully Assessed Prescriptions as of 02/08/2024 - meloxicam (MOBIC) 15 mg tablet Take 1 tablet by mouth once daily. - methocarbamol (ROBAXIN) 500 mg tablet Take 0.5 tablets by mouth at bedtime as needed. Can take half to one pill a day as needed - minoxidil (LONITEN) 2.5 mg tablet take 1/4 OF a tablet EVERY DAY - finasteride (PROPECIA) 1 mg tablet Take 1 tablet by mouth every afternoon. - LORazepam (ATIVAN) 0.5 mg Take by mouth three times a day as needed. - estradiol (ESTRACE) 0.01 % (0.1 mg/gram) vaginal cream Use 1g vaginally 2 times per week. - EPINEPHrine (EPIPEN) 0.3 mg/0.3 mL auto-injector Inject 0.3 mL intramuscularly as directed. use as directed for allergic reaction. Seek emergent medical immediately after use. - tacrolimus (PROTOPIC) 0.1 % ointment Apply to affected area two times a day. - triamcinolone acetonide (KENALOG) 0.1 % cream Apply 1 application to affected area two times a day. Apply to affected area. Location: back - lisinopril (ZESTRIL) 5 mg tablet Take 1 tablet by mouth once daily. - sertraline (ZOLOFT) 100 mg tablet take 1 tablet daily - ezetimibe (ZETIA) 10 mg tablet take 1 tablet daily - sodium chloride (SALINE NASAL) 0.65 % nasal spray Use 2-3 Sprays in the nose three times a day. - fluticasone (FLONASE) 50 mcg/actuation nasal spray Use 2 Sprays in each nostril once daily. Rinse mouth after use. Meds Comments as of 10/14/2015: [facility]. Department Of Sociology Chair: Therapy (PT/OT/Speech/Resp) ID: [id number] 02/07/2024 11:37 AM Author: GEMMA OLMEDO Signed by GEMMA OLMEDO COKE WHEELER on 02/07/2024 at 11:38 AM Document text: Program_ID:[id number] Access Code: [email or web address] URL: [email or web address] [employer]/ Date: 02-07-2024 Prepared By: Darryl Cardenas Program Notes Exercises - Gentle Levator Scapulae Stretch - 1 x daily - 7 x weekly - 3 sets - 3 reps - Seated Upper Trapezius Stretch - 1 x daily - 7 x weekly - 3 sets - 3 reps - Seated Scapular Retraction - 1 x daily - 7 x weekly - 3 sets - 10 reps - Active Straight Leg Raise with Quad Set - 1-2 x daily - 7 x weekly - 2 sets - 5-10 reps - Supine Quad Set on Towel Roll - 1-2 x daily - 7 x weekly - 2 sets - 5-10 reps - Supine Heel Slide with Strap - 1-2 x daily - 7 x weekly - 2 sets - 5-10 reps - Sidelying Hip Abduction - 1-2 x daily - 7 x weekly - 2 sets - 10 reps - Modified Dg Stretch - 1-2 x daily - 7 x weekly - 2 sets - 2 reps - Shoulder extension with resistance - Neutral - 1 x daily - 7 x weekly - 2-3 sets - 10 reps - Shoulder External Rotation and Scapular Retraction with Resistance - 1 x daily - 7 x weekly - 2-3 sets - 10 reps - Clamshell - 2 x daily - 7 x weekly - 2 sets - 10 reps - Seated Long Arc Quad - 2 x daily - 7 x weekly - 2 sets - 10 reps Normal [facility] THERAPY NTon 02-07-2024 THERAPY NT HNO ID: [id number] Author: GEMMA OLMEDO PTA Service: ? Author Type: Stringing Machine Operator Type: Therapy (PT/OT/Speech/Resp) Filed: 02/07/2024 11:38 Note Text: Program_ID:[id number] Access Code: [email or web address] URL: [email or web address] .[employer]/ Date: 02-07-2024 Prepared By: Darryl Cardenas Program Notes Exercises - Gentle Levator Scapulae Stretch - 1 x daily - 7 x weekly - 3 sets - 3 reps - Seated Upper Trapezius Stretch - 1 x daily - 7 x weekly - 3 sets - 3 reps - Seated Scapular Retraction - 1 x daily - 7 x weekly - 3 sets - 10 reps - Active Straight Leg Raise with Quad Set - 1-2 x daily - 7 x weekly - 2 sets - 5-10 reps - Supine Quad Set on Towel Roll - 1-2 x daily - 7 x weekly - 2 sets - 5-10 reps - Supine Heel Slide with Strap - 1-2 x daily - 7 x weekly - 2 sets - 5-10 reps - Sidelying Hip Abduction - 1-2 x daily - 7 x weekly - 2 sets - 10 reps - Modified Dg Stretch - 1-2 x daily - 7 x weekly - 2 sets - 2 reps - Shoulder extension with resistance - Neutral - 1 x daily - 7 x weekly - 2-3 sets - 10 reps - Shoulder External Rotation and Scapular Retraction with Resistance - 1 x daily - 7 x weekly - 2-3 sets - 10 reps - Clamshell - 2 x daily - 7 x weekly - 2 sets - 10 reps - Seated Long Arc Quad - 2 x daily - 7 x weekly - 2 sets - 10 reps Normal [facility] XR FOOT 3V AP/LAT/OBL RTon 1 04-09-2023 XR FOOT 3V AP/LAT/OBL RT * * *Final Report* * * DATE OF EXAM: Feb 07 2024 2:30PM [id number] - XR FOOT 3V AP/LAT/OBL RT / PROCEDURE REASON: multiple diagnoses * * * * Physician Interpretation * * * * EXAMINATION: XR FOOT 3V AP/LAT/OBL RT CLINICAL HISTORY: Right foot pain and bunion Technique: XR FOOT 3V AP/LAT/OBL RT -- RIGHT with 3 views on 3 images Comparison: X-ray right foot 06/29/2011 RESULT: No acute fracture or dislocation. Right hallux valgus deformity and bunion. Right first metatarsophalangeal joint space narrowing with marginal osteophytes. Plantar and posterior calcaneal spurs. IMPRESSION: Right hallux valgus deformity and bunion. Right first metatarsophalangeal degenerative disease. Wrapper Selector: PSCB Transcribe Date/Time: Feb 10 2024 12:11P Dictated by : JULIANNA ANTHONY MD This examination was interpreted and the report reviewed and electronically signed by: JULIANNA ANTHONY MD on Feb 10 2024 12:12PM EST [id number] [facility] CNTHERAPYon 01-31-2024 CNTHERAPY OT/PT/Speech Visit (PTMERC) JAZ DUKES ([id number]) 1955 F Date Time Provider Department 01/31/24 10:30 AM LIZA PATRICIO PTMMOHSEN Date Time Provider Department [place] 01/31/2024 10:30 AM [id number], ARIEL M PTMMOHSEN [facility] Reason for Visit: PT Progress Note [1596] Primary Visit Diagnosis:MARINE (stress urinary incontinence, female) [N39.3] Allergies As of Date: 01/31/2024 Noted Allergy Reaction ALLERGEN [id number] BEE 10/28/2006 MOLD 11/23/2005 PROPOLIS (BEE GLUE) 07/22/2008 Date Reviewed: 12/28/2023 Reviewed by: Lsia Guidry MA - Fully Assessed Prescriptions as of 01/31/2024 - methocarbamol (ROBAXIN) 500 mg tablet Take 0.5 tablets by mouth at bedtime as needed. Can take half to one pill a day as needed - minoxidil (LONITEN) 2.5 mg tablet take 1/4 OF a tablet EVERY DAY - finasteride (PROPECIA) 1 mg tablet Take 1 tablet by mouth every afternoon. - LORazepam (ATIVAN) 0.5 mg Take by mouth three times a day as needed. - estradiol (ESTRACE) 0.01 % (0.1 mg/gram) vaginal cream Use 1g vaginally 2 times per week. - EPINEPHrine (EPIPEN) 0.3 mg/0.3 mL auto-injector Inject 0.3 mL intramuscularly as directed. use as directed for allergic reaction. Seek emergent medical immediately after use. - tacrolimus (PROTOPIC) 0.1 % ointment Apply to affected area two times a day. - triamcinolone acetonide (KENALOG) 0.1 % cream Apply 1 application to affected area two times a day. Apply to affected area. Location: back - lisinopril (ZESTRIL) 5 mg tablet Take 1 tablet by mouth once daily. - sertraline (ZOLOFT) 100 mg tablet take 1 tablet daily - ezetimibe (ZETIA) 10 mg tablet take 1 tablet daily - sodium chloride (SALINE NASAL) 0.65 % nasal spray Use 2-3 Sprays in the nose three times a day. - fluticasone (FLONASE) 50 mcg/actuation nasal spray Use 2 Sprays in each nostril once daily. Rinse mouth after use. Meds Comments as of 10/14/2015: [facility]. [facility] CNTHERAPYon 01-26-2024 CNTHERAPY OT/PT/Speech Visit (PTWS) JAZ DUKES ([id number]) 1955 F Date Time Provider Department 01/26/24 6:00 PM LEONARD APRMAR PTMATT Date Time Provider Department Center 01/26/2024 6:00 PM [id number], MCKENA PTWS [place] Reason for Visit: Physical Therapy [503] Primary Visit Diagnosis:Cervicalgia [M54.2] Other Visit Diagnoses:Strain of left levator scapulae muscle, initial encounter [S46.812A] Acute pain of left knee [M25.562] Allergies As of Date: 01/26/2024 Noted Allergy Reaction ALLERGEN [id number] BEE 10/28/2006 MOLD 11/23/2005 PROPOLIS (BEE GLUE) 07/22/2008 Date Reviewed: 12/28/2023 Reviewed by: Lisa Guidry MA - Fully Assessed Prescriptions as of 01/26/2024 - methocarbamol (ROBAXIN) 500 mg tablet Take 0.5 tablets by mouth at bedtime as needed. Can take half to one pill a day as needed - minoxidil (LONITEN) 2.5 mg tablet take 1/4 OF a tablet EVERY DAY - finasteride (PROPECIA) 1 mg tablet Take 1 tablet by mouth every afternoon. - LORazepam (ATIVAN) 0.5 mg Take by mouth three times a day as needed. - estradiol (ESTRACE) 0.01 % (0.1 mg/gram) vaginal cream Use 1g vaginally 2 times per week. - EPINEPHrine (EPIPEN) 0.3 mg/0.3 mL auto-injector Inject 0.3 mL intramuscularly as directed. use as directed for allergic reaction. Seek emergent medical immediately after use. - tacrolimus (PROTOPIC) 0.1 % ointment Apply to affected area two times a day. - triamcinolone acetonide (KENALOG) 0.1 % cream Apply 1 application to affected area two times a day. Apply to affected area. Location: back - lisinopril (ZESTRIL) 5 mg tablet Take 1 tablet by mouth once daily. - sertraline (ZOLOFT) 100 mg tablet take 1 tablet daily - ezetimibe (ZETIA) 10 mg tablet take 1 tablet daily - sodium chloride (SALINE NASAL) 0.65 % nasal spray Use 2-3 Sprays in the nose three times a day. - fluticasone (FLONASE) 50 mcg/actuation nasal spray Use 2 Sprays in each nostril once daily. Rinse mouth after use. Meds Comments as of 10/14/2015: [facility]. Department Of Sociology Chair: Therapy (PT/OT/Speech/Resp) ID: [id number] 01/26/2024 5:47 PM Author: LEONARD PARMAR Signed by LEONARD PARMAR PT, DPT on 01/26/2024 at 5:47 PM Document text: Program_ID:[id number] Access Code: QMANXXDH URL: [email or web address] .[employer]/ Date: 01-26-2024 Prepared By: Darryl Cardenas Program Notes Exercises - Gentle Levator Scapulae Stretch - 1 x daily - 7 x weekly - 3 sets - 3 reps - Seated Upper Trapezius Stretch - 1 x daily - 7 x weekly - 3 sets - 3 reps - Seated Scapular Retraction - 1 x daily - 7 x weekly - 3 sets - 10 reps - Active Straight Leg Raise with Quad Set - 1-2 x daily - 7 x weekly - 2 sets - 5-10 reps - Supine Quad Set on Towel Roll - 1-2 x daily - 7 x weekly - 2 sets - 5-10 reps - Supine Heel Slide with Strap - 1-2 x daily - 7 x weekly - 2 sets - 5-10 reps - Sidelying Hip Abduction - 1-2 x daily - 7 x weekly - 2 sets - 10 reps - Modified Dg Stretch - 1-2 x daily - 7 x weekly - 2 sets - 2 reps - Shoulder extension with resistance - Neutral - 1 x daily - 7 x weekly - 2-3 sets - 10 reps - Shoulder External Rotation and Scapular Retraction with Resistance - 1 x daily - 7 x weekly - 2-3 sets - 10 reps Normal [facility] THERAPY NTon 01-26-2024 THERAPY NT HNO ID: [id number] Author: LEONARD PARMAR, PT, DPT Service: ? Author Type: Physical Therapist Type: Therapy (PT/OT/Speech/Resp) Filed: 01/26/2024 17:47 Note Text: Program_ID:[id number] Access Code: QMANXXDH URL: [email or web address] .[employer]/ Date: 01-26-2024 Prepared By: Darryl Cardenas Program Notes Exercises - Gentle Levator Scapulae Stretch - 1 x daily - 7 x weekly - 3 sets - 3 reps - Seated Upper Trapezius Stretch - 1 x daily - 7 x weekly - 3 sets - 3 reps - Seated Scapular Retraction - 1 x daily - 7 x weekly - 3 sets - 10 reps - Active Straight Leg Raise with Quad Set - 1-2 x daily - 7 x weekly - 2 sets - 5-10 reps - Supine Quad Set on Towel Roll - 1-2 x daily - 7 x weekly - 2 sets - 5-10 reps - Supine Heel Slide with Strap - 1-2 x daily - 7 x weekly - 2 sets - 5-10 reps - Sidelying Hip Abduction - 1-2 x daily - 7 x weekly - 2 sets - 10 reps - Modified Dg Stretch - 1-2 x daily - 7 x weekly - 2 sets - 2 reps - Shoulder extension with resistance - Neutral - 1 x daily - 7 x weekly - 2-3 sets - 10 reps - Shoulder External Rotation and Scapular Retraction with Resistance - 1 x daily - 7 x weekly - 2-3 sets - 10 reps Normal [facility] CNTHERAPYon 01-17-2024 CNTHERAPY OT/PT/Speech Visit (PTWS) JAZ DUKES ([id number]) 1955 F Date Time Provider Department 01/17/24 12:45 PM LEONARD PARMAR PTWS Date Time Provider Department [place] 01/17/2024 12:45 PM [id number], MCKENA PTWS [place] Reason for Visit: PT Progress Note [1596] Primary Visit Diagnosis:Cervicalgia [M54.2] Other Visit Diagnoses:Strain of left levator scapulae muscle, initial encounter [S46.812A] Acute pain of left knee [M25.562] Allergies As of Date: 01/17/2024 Noted Allergy Reaction ALLERGEN [id number] BEE 10/28/2006 MOLD 11/23/2005 PROPOLIS (BEE GLUE) 07/22/2008 Date Reviewed: 12/28/2023 Reviewed by: Lisa Guidry MA - Fully Assessed Prescriptions as of 01/17/2024 - methocarbamol (ROBAXIN) 500 mg tablet Take 0.5 tablets by mouth at bedtime as needed. Can take half to one pill a day as needed - minoxidil (LONITEN) 2.5 mg tablet take 1/4 OF a tablet EVERY DAY - finasteride (PROPECIA) 1 mg tablet Take 1 tablet by mouth every afternoon. - LORazepam (ATIVAN) 0.5 mg Take by mouth three times a day as needed. - estradiol (ESTRACE) 0.01 % (0.1 mg/gram) vaginal cream Use 1g vaginally 2 times per week. - EPINEPHrine (EPIPEN) 0.3 mg/0.3 mL auto-injector Inject 0.3 mL intramuscularly as directed. use as directed for allergic reaction. Seek emergent medical immediately after use. - tacrolimus (PROTOPIC) 0.1 % ointment Apply to affected area two times a day. - triamcinolone acetonide (KENALOG) 0.1 % cream Apply 1 application to affected area two times a day. Apply to affected area. Location: back - lisinopril (ZESTRIL) 5 mg tablet Take 1 tablet by mouth once daily. - sertraline (ZOLOFT) 100 mg tablet take 1 tablet daily - ezetimibe (ZETIA) 10 mg tablet take 1 tablet daily - sodium chloride (SALINE NASAL) 0.65 % nasal spray Use 2-3 Sprays in the nose three times a day. - fluticasone (FLONASE) 50 mcg/actuation nasal spray Use 2 Sprays in each nostril once daily. Rinse mouth after use. Meds Comments as of 10/14/2015: [facility]. [facility] CNTHERAPYon 01-10-2024 CNTHERAPY OT/PT/Speech Visit (PTWS) JAZ DUKES ([id number]) 1955 F Date Time Provider Department 01/10/24 9:30 AM GEMMA OLMEDO Date Time Provider Department Center 01/10/2024 9:30 AM [id number] OLMEDO Reason for Visit: Physical Therapy [503] Primary Visit Diagnosis:Cervicalgia [M54.2] Other Visit Diagnoses:Strain of left levator scapulae muscle, initial encounter [S46.382A] Acute pain of left knee [M25.562] Allergies As of Date: 01/10/2024 Noted Allergy Reaction ALLERGEN [id number] BEE 10/28/2006 MOLD 11/23/2005 PROPOLIS (BEE GLUE) 07/22/2008 Date Reviewed: 12/28/2023 Reviewed by: Lisa Guidry MA - Fully Assessed Prescriptions as of 01/10/2024 - methocarbamol (ROBAXIN) 500 mg tablet Take 0.5 tablets by mouth at bedtime as needed. Can take half to one pill a day as needed - minoxidil (LONITEN) 2.5 mg tablet take 1/4 OF a tablet EVERY DAY - finasteride (PROPECIA) 1 mg tablet Take 1 tablet by mouth every afternoon. - LORazepam (ATIVAN) 0.5 mg Take by mouth three times a day as needed. - estradiol (ESTRACE) 0.01 % (0.1 mg/gram) vaginal cream Use 1g vaginally 2 times per week. - EPINEPHrine (EPIPEN) 0.3 mg/0.3 mL auto-injector Inject 0.3 mL intramuscularly as directed. use as directed for allergic reaction. Seek emergent medical immediately after use. - tacrolimus (PROTOPIC) 0.1 % ointment Apply to affected area two times a day. - triamcinolone acetonide (KENALOG) 0.1 % cream Apply 1 application to affected area two times a day. Apply to affected area. Location: back - lisinopril (ZESTRIL) 5 mg tablet Take 1 tablet by mouth once daily. - sertraline (ZOLOFT) 100 mg tablet take 1 tablet daily - ezetimibe (ZETIA) 10 mg tablet take 1 tablet daily - sodium chloride (SALINE NASAL) 0.65 % nasal spray Use 2-3 Sprays in the nose three times a day. - fluticasone (FLONASE) 50 mcg/actuation nasal spray Use 2 Sprays in each nostril once daily. Rinse mouth after use. Meds Comments as of 10/14/2015: [facility]. Department Of Sociology Chair: Therapy (PT/OT/Speech/Resp) ID: [id number] 01/10/2024 10:08 AM Author: GEMMA OLMEDO Signed by GEMMA OLMEDO COKE WHEELER on 01/10/2024 at 10:08 AM Document text: Program_ID:[id number] Access Code: QMANXXDH URL: [email or web address] Date: 01-10-2024 Prepared By: Darryl Cardenas Program Notes Exercises - Gentle Levator Scapulae Stretch - 1 x daily - 7 x weekly - 3 sets - 3 reps - Seated Upper Trapezius Stretch - 1 x daily - 7 x weekly - 3 sets - 3 reps - Seated Scapular Retraction - 1 x daily - 7 x weekly - 3 sets - 10 reps - Active Straight Leg Raise with Quad Set - 1-2 x daily - 7 x weekly - 2 sets - 5-10 reps - Supine Quad Set on Towel Roll - 1-2 x daily - 7 x weekly - 2 sets - 5-10 reps - Supine Heel Slide with Strap - 1-2 x daily - 7 x weekly - 2 sets - 5-10 reps Normal [facility] THERAPY NTon 01-10-2024 THERAPY NT HNO ID: [id number] Author: GEMMA OLMEDO PTA Service: ? Author Type: Stringing Machine Operator Type: Therapy (PT/OT/Speech/Resp) Filed: 01/10/2024 10:08 Note Text: Program_ID:[id number] Access Code: QMANXXDH URL: [email or web address] Date: 01-10-2024 Prepared By: Darryl Cardenas Program Notes Exercises - Gentle Levator Scapulae Stretch - 1 x daily - 7 x weekly - 3 sets - 3 reps - Seated Upper Trapezius Stretch - 1 x daily - 7 x weekly - 3 sets - 3 reps - Seated Scapular Retraction - 1 x daily - 7 x weekly - 3 sets - 10 reps - Active Straight Leg Raise with Quad Set - 1-2 x daily - 7 x weekly - 2 sets - 5-10 reps - Supine Quad Set on Towel Roll - 1-2 x daily - 7 x weekly - 2 sets - 5-10 reps - Supine Heel Slide with Strap - 1-2 x daily - 7 x weekly - 2 sets - 5-10 reps Normal [facility] CNOVon 12-28-2023 CNOV Office Visit (UCTR ) JAZ DUKES ([id number]) 1955 F Date Time Provider Department 12/28/23 5:[address] [facility] During your visit today, we recorded the following information about you: Temperature Pulse Respiration Blood pressure 97.3 degrees 65/minute 21/minute 100/68 Weight 62.1 kg Ben Chambers MD 12/28/2023 6:28 PM Signed Patient presents with: Trauma: 2 tick bites x 3 days HPI: Noted a dark mole she picked off the left neck which has swollen to a bump the last 2 days. She pulled a tick off her right collar today. She walks outside regularly and suspects that is where it came from. She has no rash, fever, or arthralgia. She does have a headache today but was attending a before coming here (friend in the hospital for weeks) and attributes it to that. MEDICATIONS: minoxidil (LONITEN) 2.5 mg tablet take 1/4 OF a tablet EVERY DAY finasteride (PROPECIA) 1 mg tablet Take 1 tablet by mouth every afternoon. LORazepam (ATIVAN) 0.5 mg Take by mouth three times a day as needed. estradiol (ESTRACE) 0.01 % (0.1 mg/gram) vaginal cream Use 1g vaginally 2 times per week. EPINEPHrine (EPIPEN) 0.3 mg/0.3 mL auto-injector Inject 0.3 mL intramuscularly as directed. use as directed for allergic reaction. Seek emergent medical immediately after use. tacrolimus (PROTOPIC) 0.1 % ointment Apply to affected area two times a day. triamcinolone acetonide (KENALOG) 0.1 % cream Apply 1 application to affected area two times a day. Apply to affected area. Location: back lisinopril (ZESTRIL) 5 mg tablet Take 1 tablet by mouth once daily. sertraline (ZOLOFT) 100 mg tablet take 1 tablet daily ezetimibe (ZETIA) 10 mg tablet take 1 tablet daily sodium chloride (SALINE NASAL) 0.65 % nasal spray Use 2-3 Sprays in the nose three times a day. fluticasone (FLONASE) 50 mcg/actuation nasal spray Use 2 Sprays in each nostril once daily. Rinse mouth after use. methocarbamol (ROBAXIN) 500 mg tablet Take 0.5 tablets by mouth at bedtime as needed. Can take half to one pill a day as needed (Patient not taking: Reported on 12/28/2023) doxycycline hyclate (VIBRAMYCIN) 100 mg capsule Take 100 mg by mouth. (Patient not taking: Reported on 12/28/2023) ALLERGIES: ALLERGIES Allergen Reactions Allergen Ext-Venom-* Mold Propolis (Bee Glue) VITALS: BP 100/68 Pulse 65 Temp 36.3 ?C (97.3 ?F) Resp 21 Wt 62.1 kg (136 lb 14.5 oz) LMP 12/12/2009 SpO2 98% BMI 25.66 kg/m? PE: Pleasant, in no acute distress. SKIN: embedded tick parts above the left clavicle. A few small parts were further removed with tweezers. 7mm slightly raised erythematous indurated area with central punctate clear-white eschar left posterior neck; no fluctuance. ASSESSMENT/PLAN: 1. Tick bite of neck, initial encounter - ICD9: 910.4, E906.4, ICD10: S10.96XA, W57.XXXA Right neck tick, left neck inflamed area may have been from a avulsed skin tag or tick. Prophylactic lyme dose - DOXYCYCLINE MONOHYDRATE 100 MG CAPSULE Ben Chambers MD Allergies As of Date: 12/28/2023 Noted Allergy Reaction ALLERGEN [id number] BEE 10/28/2006 MOLD 11/23/2005 PROPOLIS (BEE GLUE) 07/22/2008 Date Reviewed: 12/28/2023 Reviewed by: Lisa Guidry MA - Fully Assessed Reason for Visit: Trauma [112] Cmt: 2 tick bites x 3 days Primary Visit Diagnosis:Tick bite of neck, initial encounter [S10.96XA, W57.XXXA] Order(s):doxycycline monohydrate (MONODOX) 100 mg capsuleTake 2 capsules by mouth one time only for 1 dose.Disp: 2 capsuleRfl: 0 Prescriptions as of 12/28/2023 - doxycycline monohydrate (MONODOX) 100 mg capsule Take 2 capsules by mouth one time only for 1 dose. - methocarbamol (ROBAXIN) 500 mg tablet Take 0.5 tablets by mouth at bedtime as needed. Can take half to one pill a day as needed - minoxidil (LONITEN) 2.5 mg tablet take 1/4 OF a tablet EVERY DAY - finasteride (PROPECIA) 1 mg tablet Take 1 tablet by mouth every afternoon. - LORazepam (ATIVAN) 0.5 mg Take by mouth three times a day as needed. - estradiol (ESTRACE) 0.01 % (0.1 mg/gram) vaginal cream Use 1g vaginally 2 times per week. - EPINEPHrine (EPIPEN) 0.3 mg/0.3 mL auto-injector Inject 0.3 mL intramuscularly as directed. use as directed for allergic reaction. Seek emergent medical immediately after use. - tacrolimus (PROTOPIC) 0.1 % ointment Apply to affected area two times a day. - triamcinolone acetonide (KENALOG) 0.1 % cream Apply 1 application to affected area two times a day. Apply to affected area. Location: back - lisinopril (ZESTRIL) 5 mg tablet Take 1 tablet by mouth once daily. - sertraline (ZOLOFT) 100 mg tablet take 1 tablet daily - ezetimibe (ZETIA) 10 mg tablet take 1 tablet daily - sodium chloride (SALINE NASAL) 0.65 % nasal spray Use 2-3 Sprays in the nose three times a day. - fluticasone (FLONAS (more content not included)... Normal [facility] [id number] 12-20-2023 [id number] HNO ID: [id number] Author: DARRYL CARDENAS PT Service: ? Author Type: Physical Therapist Type: [id number] Filed: 12/20/2023 15:16 Note Text: [facility] Physical Therapy Plan of Care Certification Patient Name: Jaz Dukes : 1955 [facility] #: [id number] Date: 12/19/2023 To: Micah High MD From Therapist: Darryl Cardenas PT RE: Patient Certification/ Recertification Your review, approval and electronic signature are required in order to comply with Payor: MMO MEDICARE / Plan: MMO MEDADVANTAGE HMO / Product Type: HMO / regulations. The identified Physical Therapy PLAN OF CARE for the patient is as follows: S46.812D Strain of left levator scapulae muscle, subsequent encounter (primary encounter diagnosis) M54.2 Cervicalgia M25.562 Acute pain of left knee PLAN OF CARE: Assessment: Jaz Dukes presents with chief complaint of neck pain and L knee pain that interferes with stair negotiation, physical activities, recreational activities, walking in the community, squatting . The patient presents with impairments in ADL's, overall function, range of motion, symptom management, and tissue tenderness. PROMIS? (Patient-Reported Outcomes Measurement Information System) scores were reviewed and identified as within normal limits. Prognosis for therapy is Good due to: current objective clinical presentation, good overall health status, positive past response to therapy, good support system/ coping skills . The patient will benefit from skilled therapy services to meet the goals established for this plan of care as noted below. Goals for Episode of Care: established 12/19/23 [place] in home exercise program. Patient will decrease pain rating by 2 points to meet minimal clinical important difference for numeric pain rating scale. Patient will increase active ROM of cervical spine and L knee to WNL to allow pt to to improve performance of ADLs. Patient will demonstrate increase in L knee strength to 4+/5 during manual muscle testing in order to improve function for basic self-care tasks, home management tasks, and prior functional tasks. Sleep throughout the night without pain/symptoms. Time Frame for Goals and Treatment : 02/19/24 Planned Interventions, Frequency, and Duration: Current Frequency: 1x/week Duration: 8 weeks Total Number of Visits Planned: 8 Planned Treatment Interventions: Therapeutic exercise (35700), Neuromuscular re-education (78474), Manual therapy (68233), Therapeutic activities (06107), Self-residential management (57116), Patient/Family/Caregive r Education, Body Mechanics Training PLAN FOR NEXT VISIT: Manual to cervical mm and rhomboids. May evaluate knee Patient demonstrates good understanding of plan of care and treatment. The above goals and plan of care were discussed and agreed upon by patient/family. For further details regarding this patient refer to the Physical Therapy electronically documented visit dated 12/19/2023. Provider Attestation I have reviewed the treatment plan for Jaz Baltazar Dukes, CC# [id number] for the period of 12/19/23 -- 02/18/24, established on 12/19/2023. Signature certifies the need for therapy services. Normal [facility] CNTHERAPYon 12-19-2023 CNTHERAPY OT/PT/Speech Visit (PTWS) JAZ DUKES ([id number]) 1955 F Date Time Provider Department 12/19/23 11:30 AM DARRYL CARDENAS PTMATT Date Time Provider Department Center 12/19/2023 11:30 AM [id number], SEAN PTMATT [place] Reason for Visit: PT Eval [747] Primary Visit Diagnosis:Strain of left levator scapulae muscle, subsequent encounter [S46.818E] Other Visit Diagnoses:Cervicalgia [M54.2] Acute pain of left knee [M25.562] Allergies As of Date: 12/19/2023 Noted Allergy Reaction ALLERGEN [id number] BEE 10/28/2006 MOLD 11/23/2005 PROPOLIS (BEE GLUE) 07/22/2008 Date Reviewed: 11/29/2023 Reviewed by: Kendra Montilla MA - Fully Assessed Prescriptions as of 12/20/2023 - methocarbamol (ROBAXIN) 500 mg tablet Take 0.5 tablets by mouth at bedtime as needed. Can take half to one pill a day as needed - minoxidil (LONITEN) 2.5 mg tablet take 1/4 OF a tablet EVERY DAY - finasteride (PROPECIA) 1 mg tablet Take 1 tablet by mouth every afternoon. - doxycycline hyclate (VIBRAMYCIN) 100 mg capsule Take 100 mg by mouth. - LORazepam (ATIVAN) 0.5 mg Take by mouth three times a day as needed. - estradiol (ESTRACE) 0.01 % (0.1 mg/gram) vaginal cream Use 1g vaginally 2 times per week. - EPINEPHrine (EPIPEN) 0.3 mg/0.3 mL auto-injector Inject 0.3 mL intramuscularly as directed. use as directed for allergic reaction. Seek emergent medical immediately after use. - tacrolimus (PROTOPIC) 0.1 % ointment Apply to affected area two times a day. - triamcinolone acetonide (KENALOG) 0.1 % cream Apply 1 application to affected area two times a day. Apply to affected area. Location: back - lisinopril (ZESTRIL) 5 mg tablet Take 1 tablet by mouth once daily. - sertraline (ZOLOFT) 100 mg tablet take 1 tablet daily - ezetimibe (ZETIA) 10 mg tablet take 1 tablet daily - sodium chloride (SALINE NASAL) 0.65 % nasal spray Use 2-3 Sprays in the nose three times a day. - fluticasone (FLONASE) 50 mcg/actuation nasal spray Use 2 Sprays in each nostril once daily. Rinse mouth after use. Meds Comments as of 10/14/2015: [employer]. Department Of Sociology Chair: Therapy (PT/OT/Speech/Resp) ID: [id number] 12/19/2023 12:03 PM Author: DARRYL CARDENAS Signed by DARRYL CARDENAS PT on 12/19/2023 at 12:03 PM Document text: Program_ID:[id number] Access Code: [email or web address] URL: [email or web address]/ Date: 12-19-2023 Prepared By: Darryl Cardenas Program Notes Exercises - Gentle Levator Scapulae Stretch - 1 x daily - 7 x weekly - 3 sets - 3 reps - Seated Upper Trapezius Stretch - 1 x daily - 7 x weekly - 3 sets - 3 reps - Seated Scapular Retraction - 1 x daily - 7 x weekly - 3 sets - 10 reps Normal [facility] THERAPY NTon 12-19-2023 THERAPY NT HNO ID: [id number] Author: DARRYL CARDENAS PT Service: ? Author Type: Physical Therapist Type: Therapy (PT/OT/Speech/Resp) Filed: 12/19/2023 12:03 Note Text: Program_ID:[id number] Access Code: [email or web address] URL: [email or web address]/ Date: 12-19-2023 Prepared By: Darryl Cardenas Program Notes Exercises - Gentle Levator Scapulae Stretch - 1 x daily - 7 x weekly - 3 sets - 3 reps - Seated Upper Trapezius Stretch - 1 x daily - 7 x weekly - 3 sets - 3 reps - Seated Scapular Retraction - 1 x daily - 7 x weekly - 3 sets - 10 reps Normal [facility] CNTHERAPYon 12-12-2023 CNTHERAPY OT/PT/Speech Visit (PTMERC) JAZ DUKES ([id number]) 1955 F Date Time Provider Department 12/12/23 10:30 AM LIZA PATRICIO PTMERC Date Time Provider Department Center 12/12/2023 10:30 AM [id number], ARIEL M PTMERC [facility] Reason for Visit: PT Progress Note [1596] Primary Visit Diagnosis:MARINE (stress urinary incontinence, female) [N39.3] Allergies As of Date: 12/12/2023 Noted Allergy Reaction ALLERGEN HPM-TOMIM-LETUR BEE 10/28/2006 MOLD 11/23/2005 PROPOLIS (BEE GLUE) 07/22/2008 Date Reviewed: 11/29/2023 Reviewed by: Kendra Montilla MA - Fully Assessed Prescriptions as of 12/12/2023 - methocarbamol (ROBAXIN) 500 mg tablet Take 0.5 tablets by mouth at bedtime as needed. Can take half to one pill a day as needed - minoxidil (LONITEN) 2.5 mg tablet take 1/4 OF a tablet EVERY DAY - finasteride (PROPECIA) 1 mg tablet Take 1 tablet by mouth every afternoon. - doxycycline hyclate (VIBRAMYCIN) 100 mg capsule Take 100 mg by mouth. - LORazepam (ATIVAN) 0.5 mg Take by mouth three times a day as needed. - estradiol (ESTRACE) 0.01 % (0.1 mg/gram) vaginal cream Use 1g vaginally 2 times per week. - EPINEPHrine (EPIPEN) 0.3 mg/0.3 mL auto-injector Inject 0.3 mL intramuscularly as directed. use as directed for allergic reaction. Seek emergent medical immediately after use. - tacrolimus (PROTOPIC) 0.1 % ointment Apply to affected area two times a day. - triamcinolone acetonide (KENALOG) 0.1 % cream Apply 1 application to affected area two times a day. Apply to affected area. Location: back - lisinopril (ZESTRIL) 5 mg tablet Take 1 tablet by mouth once daily. - sertraline (ZOLOFT) 100 mg tablet take 1 tablet daily - ezetimibe (ZETIA) 10 mg tablet take 1 tablet daily - sodium chloride (SALINE NASAL) 0.65 % nasal spray Use 2-3 Sprays in the nose three times a day. - fluticasone (FLONASE) 50 mcg/actuation nasal spray Use 2 Sprays in each nostril once daily. Rinse mouth after use. Meds Comments as of 10/14/2015: [employer]. Department Of Sociology Chair: Therapy (PT/OT/Speech/Resp) ID: [id number] 12/12/2023 10:53 AM Author: LIZA PATRICIO Signed by LIZA PATRICIO PT on 12/12/2023 at 10:53 AM Document text: Program_ID:[id number] Access Code: [email or web address] URL: [email or web address] Date: 12-12-2023 Prepared By: LIZA PATRICIO Program Notes Exercises - Hooklying Gluteal Sets - 1 x daily - 7 x weekly - 3 sets - 10 reps - Supine Hip Adduction Isometric with Ball - 1 x daily - 7 x weekly - 3 sets - 10 reps - Supine Transversus Abdominis Bracing - Hands on Stomach - 1 x daily - 7 x weekly - 3 sets - 10 reps - Supine Diaphragmatic Breathing - 1 x daily - 7 x weekly - 3 sets - 10 reps - Supine March - 1 x daily - 7 x weekly - 3 sets - 10 reps - Hooklying Clamshell with Resistance - 1 x daily - 7 x weekly - 3 sets - 10 reps [facility] THERAPY NTon 12-12-2023 THERAPY NT HNO ID: [id number] Author: LIZA PATRICIO, [place] Service: ? Author Type: Physical Therapist Type: Therapy (PT/OT/Speech/Resp) Filed: 12/12/2023 10:53 Note Text: Program_ID:[id number] Access Code: [email or web address] URL: [email or web address] Date: 12-12-2023 Prepared By: LIZA PATRICIO Program Notes Exercises - Hooklying Gluteal Sets - 1 x daily - 7 x weekly - 3 sets - 10 reps - Supine Hip Adduction Isometric with Ball - 1 x daily - 7 x weekly - 3 sets - 10 reps - Supine Transversus Abdominis Bracing - Hands on Stomach - 1 x daily - 7 x weekly - 3 sets - 10 reps - Supine Diaphragmatic Breathing - 1 x daily - 7 x weekly - 3 sets - 10 reps - Supine March - 1 x daily - 7 x weekly - 3 sets - 10 reps - Hooklying Clamshell with Resistance - 1 x daily - 7 x weekly - 3 sets - 10 reps [facility] CNTHERAPYon 12-02-2023 CNTHERAPY OT/PT/Speech Visit (PTMERC) JAZ UDKES ([id number]) 1955 F Date Time Provider Department 12/02/23 10:30 AM LIZA PATRICIO [facility] Date Time Provider Department [place] 12/02/2023 10:30 AM [id number], ARIEL M [facility] Reason for Visit: Physical Therapy [503] Primary Visit Diagnosis:MARINE (stress urinary incontinence, female) [N39.3] Allergies As of Date: 12/02/2023 Noted Allergy Reaction ALLERGEN [id number] BEE 10/28/2006 MOLD 11/23/2005 PROPOLIS (BEE GLUE) 07/22/2008 Date Reviewed: 11/29/2023 Reviewed by: Kendra Montilla MA - Fully Assessed Prescriptions as of 12/02/2023 - methocarbamol (ROBAXIN) 500 mg tablet Take 0.5 tablets by mouth at bedtime as needed. Can take half to one pill a day as needed - minoxidil (LONITEN) 2.5 mg tablet take 1/4 OF a tablet EVERY DAY - finasteride (PROPECIA) 1 mg tablet Take 1 tablet by mouth every afternoon. - doxycycline hyclate (VIBRAMYCIN) 100 mg capsule Take 100 mg by mouth. - LORazepam (ATIVAN) 0.5 mg Take by mouth three times a day as needed. - estradiol (ESTRACE) 0.01 % (0.1 mg/gram) vaginal cream Use 1g vaginally 2 times per week. - EPINEPHrine (EPIPEN) 0.3 mg/0.3 mL auto-injector Inject 0.3 mL intramuscularly as directed. use as directed for allergic reaction. Seek emergent medical immediately after use. - tacrolimus (PROTOPIC) 0.1 % ointment Apply to affected area two times a day. - triamcinolone acetonide (KENALOG) 0.1 % cream Apply 1 application to affected area two times a day. Apply to affected area. Location: back - lisinopril (ZESTRIL) 5 mg tablet Take 1 tablet by mouth once daily. - sertraline (ZOLOFT) 100 mg tablet take 1 tablet daily - ezetimibe (ZETIA) 10 mg tablet take 1 tablet daily - sodium chloride (SALINE NASAL) 0.65 % nasal spray Use 2-3 Sprays in the nose three times a day. - fluticasone (FLONASE) 50 mcg/actuation nasal spray Use 2 Sprays in each nostril once daily. Rinse mouth after use. Meds Comments as of 10/14/2015: [facility]. [facility] [id number] 11-16-2023 [id number] O ID: [id number] Author: LIZA PATRICIO PT Service: ? Author Type: Physical Therapist Type: [id number] Filed: 11/16/2023 10:49 Note Text: [facility] Physical Therapy Plan of Care Certification Patient Name: Jaz Dukes : 1955 [facility] #: [id number] Date: 11/10/2023 To: Shar Enamorado MD From Therapist: Liza Patricio PT RE: Patient Certification/ Recertification Your review, approval and electronic signature are required in order to comply with Payor: PRIMETIME / Plan: PRIMETIME HMO POS / Product Type: HMO / regulations. The identified Physical Therapy PLAN OF CARE for the patient is as follows: N39.3 MARINE (stress urinary incontinence, female) (primary encounter diagnosis) PLAN OF CARE: Assessment: Jaz Dukes presents with chief complaint of MARINE that interferes with bladder function . She presents with impairments in independence in exercise, overall function, strength, and symptom management. PROMIS? (Patient-Reported Outcomes Measurement Information System) scores were reviewed and identified as within normal limits. Prognosis for therapy is Excellent due to: current objective clinical presentation, good overall health status . She will benefit from skilled therapy services to meet the goals established for this plan of care as noted below. Goals for Episode of Care: established 11/10/23 Patient demonstrates independence and compliance with home exercise program. Patient to increase strength of pelvic floor to Power 5/5, Endurance 10/10, and Repetitions 10/10 in order to improve bladder/bowel control. Patient to correctly isolate pelvic floor muscles without compensatory patterns of breath holding, adductor use, gluteal use, and abdominal use to improve bladder/bowel control. Patient reports decreased frequency of urine/stool leakage to 0 times per day to demonstrate improved bladder/bowel control and increase confidence in community/social settings. Patient reports 100% less bladder/bowel leaks with external trigger to avoid incontinent episodes. Patient reports 100% improvement in bladder/bowel leaks while coughing/sneezing compared to evaluation in order to increase bladder and bowel function in activities of daily living. Patient can perform all activities of daily living, work, and recreational activities with 100 % bladder/bowel continence. Patient Goals: normal bladder function Time Frame for Goals and Treatment : 02/09/24 Planned Interventions, Frequency, and Duration: Current Frequency: 1x/week Duration: 12 weeks Total Number of Visits Planned: 12 Planned Treatment Interventions: Therapeutic exercise (76844), Neuromuscular re-education (15194), Manual therapy (02907), Therapeutic activities (20874), Self-residential management (32753), Biofeedback Pelvic ([id number],[id number]) PLAN FOR NEXT VISIT: review education on knack technique and kegels; trial PFMT using biofeedback Patient demonstrates good understanding of plan of care and treatment. The above goals and plan of care were discussed and agreed upon by patient/family. For further details regarding this patient refer to the Physical Therapy electronically documented visit dated 11/10/2023. Provider Attestation I have reviewed the treatment plan for Jaz Dukes, [facility]# [id number] for the period of 11/10/23 -- 12/10/23, established on 11/10/2023. Signature certifies the need for therapy services. [facility] CNTHERAPYon 11-10-2023 CNTHERAPY OT/PT/Speech Visit (PTMERC) JAZ DUKES ([id number]) 1955 F Date Time Provider Department 11/10/23 10:30 AM LIZA PATRICIO Date Time Provider Department Center 11/10/2023 10:30 AM [id number], ARIEL M PTMMOHSEN [facility] Reason for Visit: PT Eval [747] Primary Visit Diagnosis:MARINE (stress urinary incontinence, female) [N39.3] Allergies As of Date: 11/10/2023 Noted Allergy Reaction ALLERGEN [id number] BEE 10/28/2006 MOLD 11/23/2005 PROPOLIS (BEE GLUE) 07/22/2008 Date Reviewed: 09/26/2023 Reviewed by: Rosa Aden LPN - Fully Assessed Prescriptions as of 11/16/2023 - minoxidil (LONITEN) 2.5 mg tablet take 1/4 OF a tablet EVERY DAY - finasteride (PROPECIA) 1 mg tablet Take 1 tablet by mouth every afternoon. - doxycycline hyclate (VIBRAMYCIN) 100 mg capsule Take 100 mg by mouth. - LORazepam (ATIVAN) 0.5 mg Take by mouth three times a day as needed. - estradiol (ESTRACE) 0.01 % (0.1 mg/gram) vaginal cream Use 1g vaginally 2 times per week. - EPINEPHrine (EPIPEN) 0.3 mg/0.3 mL auto-injector Inject 0.3 mL intramuscularly as directed. use as directed for allergic reaction. Seek emergent medical immediately after use. - tacrolimus (PROTOPIC) 0.1 % ointment Apply to affected area two times a day. - triamcinolone acetonide (KENALOG) 0.1 % cream Apply 1 application to affected area two times a day. Apply to affected area. Location: back - lisinopril (ZESTRIL) 5 mg tablet Take 1 tablet by mouth once daily. - sertraline (ZOLOFT) 100 mg tablet take 1 tablet daily - ezetimibe (ZETIA) 10 mg tablet take 1 tablet daily - sodium chloride (SALINE NASAL) 0.65 % nasal spray Use 2-3 Sprays in the nose three times a day. - fluticasone (FLONASE) 50 mcg/actuation nasal spray Use 2 Sprays in each nostril once daily. Rinse mouth after use. Meds Comments as of 10/14/2015: [facility]. Normal [facility] DBT Breast - bilateral mercedes deshpande 10-17-2023 IMPRESSION: BENIGN There is no mammographic evidence of malignancy. A 1 year screening mammogram is recommended. Stuart rinaldi/andrae:10/17/2023 16:34:52 [address] Driver(s): RT Reddy(R)(M), [facility] letter sent: Normal over 40 Mammogram BI-RADS: Category 2: Benign Multiple national specialty organizations have released breast cancer screening guidelines for women at average risk for developing breast cancer - guidelines that are based on both evidence and opinion, yet differ on when to start and how often to screen for breast cancer. With representation from Breast Imaging, Internal Medicine, Women's Health, Family Medicine, and Medical/Surgical Oncology, the [facility] has carefully reviewed the data and reached the following consensus: 1) All women should engage in shared decision-making with their providers to decide when to start and how often to screen; 2) All women should have the opportunity to start screening mammography at age 40; 3) For women ages 45-55, we recommend annual screening mammograms; 4) For women ages 55 and over, we support both the transition from an annual to a biennial interval if this aligns more with patient's values and preferences, or continuation with annual screening; 5) All women should discuss with their providers when to stop screening mammograms. Wrapper Selector: Andrae Transcribe Date/Time: Oct 17 2023 11:29A Dictated by: STUART BULLOCK MD This examination was interpreted and the report reviewed and electronically signed by: STUART BULLOCK MD on Oct 17 2023 4:34PM [facility] DIVISION OF RADIOLOGY * * *Final Report* * * DATE OF EXAM: Oct 17 2023 12:33PM W 0582 - [facility] SCREENING W HONORIO / PROCEDURE REASON: multiple diagnoses * * * * Physician Interpretation * * * * RESULT: #[id number] - [facility] SCREENING W HONORIO BILATERAL DIGITAL SCREENING MAMMOGRAM TOMOSYNTHESIS WITH CAD: 10/17/2023 HISTORY: /Screening Mammogram with HONORIO - patient reports NO breast symptoms /priors available for comparison Multiple Diagnoses. RESULT: TECHNIQUE: The study was acquired using full field digital technology and interpreted from soft copy. Digital Breast Tomosynthesis (DBT) images were obtained and used to assist in the interpretation of this examination. Current study was also evaluated with a Computer Aided Detection (CAD). Comparison is made to exams dated: 10/11/2022 mammogram, 12/08/2021 mammogram, 06/03/2021 mammogram, 05/04/2021 mammogram, 11/15/2018 mammogram - [facility], and 04/17/2018 mammogram - [facility]. There are scattered areas of fibroglandular density. There are benign post operative findings in the left breast. No significant masses, calcifications, or other findings are seen in either breast. There has been no significant interval change. DIVISION OF RADIOLOGY Provider, [facility] - 10/17/2023 * * *Final Report* * * DATE OF EXAM: Oct 17 2023 12:33PM WRW 0582 - [facility] SCREENING W HONORIO / PROCEDURE REASON: multiple diagnoses * * * * Physician Interpretation * * * * RESULT: #[id number] - [facility] SCREENING W HONORIO BILATERAL DIGITAL SCREENING MAMMOGRAM TOMOSYNTHESIS WITH CAD: 10/17/2023 HISTORY: /Screening Mammogram with HONORIO - patient reports NO breast symptoms /priors available for comparison Multiple Diagnoses. RESULT: TECHNIQUE: The study was acquired using full field digital technology and interpreted from soft copy. Digital Breast Tomosynthesis (DBT) images were obtained and used to assist in the interpretation of this examination. Current study was also evaluated with a Computer Aided Detection (CAD). Comparison is made to exams dated: 10/11/2022 mammogram, 12/08/2021 mammogram, 06/03/2021 mammogram, 05/04/2021 mammogram, 11/15/2018 mammogram - [facility], and 04/17/2018 mammogram - [facility]. There are scattered areas of fibroglandular density. There are benign post operative findings in the left breast. No significant masses, calcifications, or other findings are seen in either breast. There has been no significant interval change. IMPRESSION IMPRESSION: BENIGN There is no mammographic evidence of malignancy. A 1 year screening mammogram is recommended. Stuart rinaldi/penrad:10/17/2023 16:34:52 [address] Driver(s): RT Reddy(R)(M), [facility] letter sent: Normal over 40 Mammogram BI-RADS: Category 2: Benign Multiple national specialty organizations have released breast cancer screening guidelines for women at average risk for developing breast cancer - guidelines that are based on both evidence and opinion, yet differ on when to start and how often to screen for breast cancer. With representation from Breast Imaging, Internal Medicine, Women's Health, Family Medicine, and Medical/Surgical Oncology, the [facility] has carefully reviewed the data and reached the following consensus: 1) All women should engage in shared decision-making with their providers to decide when to start and how often to screen; 2) All women should have the opportunity to start screening mammography at age 40; 3) For women ages 45-55, we recommend annual screening mammograms; 4) For women ages 55 and over, we support both the transition from an annual to a biennial interval if this aligns more with patient's values and preferences, or continuation with annual screening; 5) All women should discuss with their providers when to stop screening mammograms. Wrapper Selector: Andrae Transcribe Date/Time: Oct 17 2023 11:29A Dictated by: STUART BULLOCK MD This examination was interpreted and the report reviewed and electronically signed by: STUART BULLOCK MD on Oct 17 2023 4:34PM EST [facility] Radiology Study observation (narrative) [facility] DBT Breast - bilateral scree ningOrdered By: [facility] Provider on 10-17-2023 [facility] STREP A MOLECULAR (POC)on Procedural Control Valid [facility] Strep A (POCT) Negative Negative [facility] XR Chest PA and Lateralon IMPRESSION: No acute radiographic abnormality. Wrapper Selector: MIKHAIL Transcribe Date/Time: Aug 19 2023 12:38P Dictated by : ABIMBOLA QUIROZ DO This examination was interpreted and the report reviewed and electronically signed by: ABIMBOLA QUIROZ DO on Aug 19 2023 12:39PM EST DIVISION OF RADIOLOGY * * *Final Report* * * DATE OF EXAM: Aug 19 2023 12:32PM WOX 5291 - XR CHEST 2V FRONTAL/LAT / PROCEDURE REASON: Subacute cough * * * * Physician Interpretation * * * * EXAMINATION: CHEST RADIOGRAPH (2 VIEW FRONTAL & LATERAL) CLINICAL HISTORY: Subacute cough MQ: XC2_6 EXAM DATE/TIME: 08/19/2023 12:32 PM COMPARISON: 04/26/2023 RESULT: Lines, tubes, and devices: None. Lungs and pleura: No consolidation. No lung mass. No pleural effusion. No pneumothorax. Cardiomediastinal silhouette: Normal cardiomediastinal silhouette. Bones and soft tissues: Unremarkable. DIVISION OF RADIOLOGY Provider, [facility] - 08/19/2023 * * *Final Report* * * DATE OF EXAM: Aug 19 2023 12:32PM WOX 5291 - XR CHEST 2V FRONTAL/LAT / PROCEDURE REASON: Subacute cough * * * * Physician Interpretation * * * * EXAMINATION: CHEST RADIOGRAPH (2 VIEW FRONTAL & LATERAL) CLINICAL HISTORY: Subacute cough MQ: XC2_6 EXAM DATE/TIME: 08/19/2023 12:32 PM COMPARISON: 04/26/2023 RESULT: Lines, tubes, and devices: None. Lungs and pleura: No consolidation. No lung mass. No pleural effusion. No pneumothorax. Cardiomediastinal silhouette: Normal cardiomediastinal silhouette. Bones and soft tissues: Unremarkable. IMPRESSION IMPRESSION: No acute radiographic abnormality. Wrapper Selector: MIKHAIL Transcribe Date/Time: Aug 19 2023 12:38P Dictated by : ABIMBOLA QUIROZ DO This examination was interpreted and the report reviewed and electronically signed by: ABIMBOLA QUIROZ DO on Aug 19 2023 12:39PM [facility] Radiology Study observation (narrative) [facility] XR Chest PA and LateralOrder ed By: [facility] Provider on 08-19-2023 [facility] CBC panel Auto (Bld)on 04-26 Erythrocyte distribution width (RBC) [Ratio] 13.5 % 11.5 - 15.0 % [facility] Hematocrit (Bld) [Volume fraction] 38.6 % 36.0 - 46.0 % [facility] Hemoglobin (Bld) [Mass/Vol] 13.2 g/dL 11.5 - 15.5 g/dL [facility] MCH (RBC) [Entitic mass] 29.4 pg 26.0 - 34.0 pg [facility] MCHC (RBC) [Mass/Vol] 34.2 g/dL 30.5 - 36.0 g/dL [facility] MCV (RBC) [Entitic vol] 86.0 fL 80.0 - 100.0 fL [facility] Nucleated RBC (Bld) [#/Vol] <0.01 k/uL [facility] Platelet mean volume (Bld) [Entitic vol] 9.8 fL 9.0 - 12.7 fL [facility] Platelets (Bld) [#/Vol] 263 10*3/uL 150 - 400 k/uL [facility] RBC (Bld) [#/Vol] 4.49 10*6/uL 3.90 - 5.2 0 m/uL [facility] WBC (Bld) [#/Vol] 6.19 10*3/uL 3.70 - 11. 00 k/uL [facility] MONOTEST, INFECTIOUS MONOon 04-26-2023 Heterophile Ab LA Ql (S) Negative Negative [facility] XR Chest PA and Lateralon IMPRESSION: No acute radiographic abnormality. Wrapper Selector: PSCB Transcribe Date/Time: Apr 26 2023 12:59P Dictated by : NACHO ABAD MD This examination was interpreted and the report reviewed and electronically signed by: NACHO ABAD MD on Apr 26 2023 1:00PM [facility] DIVISION OF RADIOLOGY * * *Final Report* * * DATE OF EXAM: Apr 26 2023 12:41PM WOX 5291 - XR CHEST 2V FRONTAL/LAT / PROCEDURE REASON: multiple diagnoses * * * * Physician Interpretation * * * * EXAMINATION: CHEST RADIOGRAPH (2 VIEW FRONTAL & LATERAL) CLINICAL HISTORY: Acute cough Shortness of breath MQ: XC2_6 EXAM DATE/TIME: 04/26/2023 12:41 PM COMPARISON: 08/02/2017 RESULT: Lines, tubes, and devices: None. Lungs and pleura: No consolidation. No lung mass. No pleural effusion. No pneumothorax. Cardiomediastinal silhouette: Normal cardiomediastinal silhouette. Bones and soft tissues: Unremarkable. DIVISION OF RADIOLOGY Provider, [facility]ie [facility] - 04/26/2023 * * *Final Report* * * DATE OF EXAM: Apr 26 2023 12:41PM WOX 5291 - XR CHEST 2V FRONTAL/LAT / PROCEDURE REASON: multiple diagnoses * * * * Physician Interpretation * * * * EXAMINATION: CHEST RADIOGRAPH (2 VIEW FRONTAL & LATERAL) CLINICAL HISTORY: Acute cough Shortness of breath MQ: XC2_6 EXAM DATE/TIME: 04/26/2023 12:41 PM COMPARISON: 08/02/2017 RESULT: Lines, tubes, and devices: None. Lungs and pleura: No consolidation. No lung mass. No pleural effusion. No pneumothorax. Cardiomediastinal silhouette: Normal cardiomediastinal silhouette. Bones and soft tissues: Unremarkable. IMPRESSION IMPRESSION: No acute radiographic abnormality. Wrapper Selector: [facility] Transcribe Date/Time: Apr 26 2023 12:59P Dictated by : NACHO ABAD MD This examination was interpreted and the report reviewed and electronically signed by: NACHO ABAD MD on Apr 26 2023 1:00PM EST [facility] Radiology Study observation (narrative) [facility] XR Chest PA and LateralOrder ed By: [facility] Provider on 04-26-2023 [facility] STREP A MOLECULAR (POC)on Procedural Control Valid [facility] Strep A (POCT) Negative Negative [facility] XR Shoulder - right 3 Viewso n 03-15-2023 IMPRESSION: 1. No radiographic evidence of acute osseous injury. 2. Findings which may be seen in the setting of calcific tendinitis. Wrapper Selector: [facility] Transcribe Date/Time: Mar 15 2023 3:56P Dictated by : YECENIA CHING MD This examination was interpreted and the report reviewed and electronically signed by: YECENIA CHING MD on Mar 15 2023 3:57PM [facility] DIVISION OF RADIOLOGY * * *Final Report* * * DATE OF EXAM: Mar 15 2023 3:56PM WOX 5253 - XR SHLDR >/=3V AP/AGATA AP/OTHR RT / PROCEDURE REASON: Right shoulder injury, initial encounter * * * * Physician Interpretation * * * * TITLE: XR SHLDR >/=3V AP/AGATA AP/OTHR RT CLINICAL INDICATION: Shoulder injury TECHNIQUE: 3 view radiographic study of the right shoulder COMPARISON: None FINDINGS: No acute fracture or dislocation identified. Amorphous calcifications adjacent to the greater tuberosity, a finding which may be seen in the setting of calcific tendinitis. DIVISION OF RADIOLOGY Provider, [facility] - 03/15/2023 * * *Final Report* * * DATE OF EXAM: Mar 15 2023 3:56PM WOX 5253 - XR SHLDR >/=3V AP/AGATA AP/OTHR RT / PROCEDURE REASON: Right shoulder injury, initial encounter * * * * Physician Interpretation * * * * TITLE: XR SHLDR >/=3V AP/AGATA AP/OTHR RT CLINICAL INDICATION: Shoulder injury TECHNIQUE: 3 view radiographic study of the right shoulder COMPARISON: None FINDINGS: No acute fracture or dislocation identified. Amorphous calcifications adjacent to the greater tuberosity, a finding which may be seen in the setting of calcific tendinitis. IMPRESSION IMPRESSION: 1. No radiographic evidence of acute osseous injury. 2. Findings which may be seen in the setting of calcific tendinitis. Wrapper Selector: [facility] Transcribe Date/Time: Mar 15 2023 3:56P Dictated by : YECENIA CHING MD This examination was interpreted and the report reviewed and electronically signed by: YECENIA CHING MD on Mar 15 2023 3:57PM [facility] Radiology Study observation (narrative) [facility] XR Shoulder - right 3 ViewsO rdered By: [facility] Provider on 03-15-2023 [facility] CBC W Auto Differential pane l (Bld)on 11-10-2022 Basophils (Bld) [#/Vol] 0.07 10*3/uL <0.11 k/uL [facility] Basophils/100 WBC (Bld) 1.4 % [facility] Differential cell count method Nom (Bld) Auto [facility] Eosinophils (Bld) [#/Vol] 0.23 10*3/uL <0.46 k/uL [facility] Eosinophils/100 WBC (Bld) 4.6 % [facility] Erythrocyte distribution width (RBC) [Ratio] 13.1 % 11.5 - 15.0 % [facility] Hematocrit (Bld) [Volume fraction] 41.6 % 36.0 - 46.0 % [facility] Hemoglobin (Bld) [Mass/Vol] 13.7 g/dL 11.5 - 15.5 g/dL [facility] Immature granulocytes (Bld) [#/Vol] <0.10 k/uL [facility] Immature granulocytes/100 WBC (Bld) 0.2 % [facility] Lymphocytes (Bld) [#/Vol] 1.33 10*3/uL 1.00 - 4.00 k/uL [facility] Lymphocytes/100 WBC (Bld) 26.8 % [facility] MCH (RBC) [Entitic mass] 29.5 pg 26.0 - 34.0 pg [facility] MCHC (RBC) [Mass/Vol] 32.9 g/dL 30.5 - 36.0 g/dL [facility] MCV (RBC) [Entitic vol] 89.7 fL 80.0 - 100.0 fL [facility] Monocytes (Bld) [#/Vol] 0.37 10*3/uL <0.87 k/uL [facility] Monocytes/100 WBC (Bld) 7.5 % [facility] Neutrophils (Bld) [#/Vol] 2.95 10*3/uL 1.45 - 7.50 k/uL [facility] Neutrophils/100 WBC (Bld) 59.5 % [facility] Nucleated RBC (Bld) [#/Vol] <0.01 k/uL [facility] Nucleated RBC/100 WBC (Bld) [Ratio] 0.0 /100 WBC [facility] Platelet mean volume (Bld) [Entitic vol] 10.7 fL 9.0 - 12.7 fL [facility] Platelets (Bld) [#/Vol] 248 10*3/uL 150 - 400 k/uL [facility] RBC (Bld) [#/Vol] 4.64 10*6/uL 3.90 - 5.2 0 m/uL [facility] WBC (Bld) [#/Vol] 4.96 10*3/uL 3.70 - 11. 00 k/uL [facility] FERRITIN BLDon 11-10-2022 Ferritin [Mass/Vol] 39.3 ng/mL 14.7 - 2 05.1 ng/mL [facility] HbA1c (Bld)on 11-10-2022 Average glucose Estimated from glycated hemoglobin (Bld) [Mass/Vol] 105 mg/dL [facility] HbA1c (Bld) [Mass fraction] 5.3 % 4.3 - 5.6 % [facility] Iron and Iron binding capaci ty panelon 11-10-2022 Iron [Mass/Vol] 70 ug/dL 41 - 186 ug/dL [facility] Iron binding capacity [Mass/Vol] 313 ug/dL 232 - 386 ug/dL [facility] Iron/TIBC [Molar ratio] 22.4 % 15.0 - 57.0 % [facility] TSH BLDon 11-10-2022 TSH Qn 1.100 m[IU]/L 0.270 - 4.200 mIU/L [facility] VITAMIN B12 BLOODon 11-11-19 Cobalamin (Vitamin B12) [Mass/Vol] 350 pg/mL 232 - 1,245 pg/mL [facility] DWAIN SCREENINGon 10-11-[address] [facility] [address] SINUS WO IVCONon 02-16-20 [facility] SURGICAL PATHOLOGYon Case Report Surgical Pathology Report Case: [id number] Authorizing Provider: Batsheva Garcia MD Collected: 12/23/2021 02:20 PM Ordering Location: General Surgery Received: 12/23/2021 05:10 PM Pathologist: Lilia Dobbs MD Specimen: SKIN EXCISED CYST [facility] Clinical History infected skin cyst[lower back [facility] FINAL DIAGNOSIS A. Skin, lower back, excision: -Compatible with ruptured epidermoid cyst. WFB/RB 12/25/2021 [facility] Gross Description A. SKIN EXCISED CYST Received in formalin is an unoriented elliptical segment of skin and subcutaneous tissue measuring 1.1 x 0.4 x 1.5 cm. The skin surface demonstrates an irregular luna slightly elevated area measuring 0.2 x 0.2 cm, and extends to the nearest margin. The specimen does resemble a ruptured cyst. A customer contact representative section is submitted in one cassette. Gross examination performed at [facility], [address] [place] [id number] FFS 12/24/2021 12:27 AM [facility] Performing Lab Diagnostic interpretation performed at [facility], [address] [place] [id number] CLIA# [id number] Muck Boss: Clifton Shearer M.D. [facility] BREAST LTD RTon 2 [facility] DWAIN EDILIA W HONORIO RTon 022 [facility] BREAST LTD RTon 2 [facility] HISTORY PHYSICALon 0 HISTORY PHYSICAL HNO ID: [id number] Author: Chad Wilkins Service: Orthopaedic Surgery Author Type: Physician Type: HANDP Filed: 03/16/2019 9:52 AM Note Text: Chad Wilkins MD Department of Orthopaedics Orthopaedics [address] [facility] [address] Dept: [phone] Dept ? ? March 08, 2019 ? ? CHIEF COMPLAINT: Established Patient of the Right Ring Finger and Ganglion Cyst ? HPI: Ms. Jaz Dukes is a 63 year old female who presents with a bump on her left ring finger. it started about a year ago. it has been pushing on her nail and causing pressure. she is right-hand dominant and retired. ? ASSESSMENT: M67.49, M71.39, M67.89 Ganglion and cyst of synovium, tendon and bursa (primary encounter diagnosis) M67.442 Digital mucous cyst of finger of left hand ? PLAN: we discussed the risks, benefits, alternatives and potential complications involving both operative and nonoperative treatment. she would like to pursue surgery. ? FOLLOW UP INSTRUCTIONS: we will get her scheduled for a local anesthetic procedure. ? Ms. Jaz Dukes was advised as to contrast therapies and/or to take analgesics/anti-inflamm atories as needed and all contraindications were reviewed. ? OBJECTIVE: Ms. Jaz Dukes is a pleasant 63 year old in no apparent distress. Gen:BP 141/83 Pulse 63 Ht 5' 2 (1.58m) Wt 152 lb (68.9kg) LMP 12/12/2009 BMI 27.79 kg/(m2). ? nl development, non obese, no deformities ENT: Normocephalic, normal hearing, moist mucosa CV: Pulses:Radial= 2+ and symmetric, capillary refill < 2 secs, no peripheral edema/varicosities HEART: RRR LUNGS: CTA B/L Skin: no rash, bruising or lesions. Good turgor. Psych: cooperative and appropriate, alert and oriented x 3, good mood and affect. Musculoskeletal: left ring finger with a slight prominence consistent with a digital ganglion cyst. She does have some ridging but no splitting of the nail. no redness or drainage. ? IMAGING: Deferred. ? ? Supporting Subjective Information Below: ? Past Medical History: PAST MEDICAL HISTORY PAST MEDICAL HISTORY Diagnosis Date - Abnormal glandular Papanicolaou smear of cervix 04/23/2005 ? Abn. Pap smear (cervix), Ascus - Carcinoma in situ, site unspecified ? ? basal cell and squamous left leg - Hypertension ? - Internal hemorrhoids without mention of complication ? - Irregular menstrual cycle ? ? perimenopausal bleeding - Snoring ? ? Past Surgical History: PAST SURGICAL HISTORY PAST SURGICAL HISTORY Procedure Laterality Date - BX OF BREAST; INCISIONAL ? 11/28/2000 ? left breast - CERVIX UTERI CONIZA LP ELCTRO EXCI ? 08/03/2000 ? LEEP-Cervix - COLONOSCOP W/ OR W/O BRSH SPEC ? 05/17/06 - COLONOSCOP W/ OR W/O BRSH SPEC ? 06/16/2017 ? Colonoscopy - COLPOSCOPY (VAGINOSCOPY) ? 07/15/2000 ? Colposcopy - LIGATE FALLOPIAN TUBE ? 05/27/1992 ? Tubal ligation, BPS - OTHER ? ? ? MOHS- removal of squamous cells - PAST SURGICAL HISTORY OF ? ? ? Broken Nose Repair - PAST SURGICAL HISTORY OF ? 09/17/2004 ? EMB - PAST SURGICAL HISTORY OF ? 09/2004 ? BONE DENSITTY - REMOVAL OF TONSILS,<12 Y/O ? ? ? Tonsillectomy - SKIN BX, 1 LESION ? 12/15/2000 ? basal cell CA, on face ? Family History: FAMILY HISTORY FAMILY HISTORY Problem Relation Age of Onset - Diabetes Father ? ? non-insulin - Cancer Father ? ? Bladder and Basil Cell - Cancer Paternal Grandmother ? ? Ovarian age 45 - Lipids Mother ? ? Hyperlipidemia,stroke - Heart Mother 65 ? [place] - Hypertension Mother ? - Arthritis Mother ? - Cancer Mother ? ? Skin cancer - unsure of cell type - other (heartburn) Son ? - other (Other) Other ? ? No breast/uterine/colon cancer - other (melanoma) Daughter ? ? Social History: SOCIAL HISTORY Social History ? Tobacco Use - Smoking status: Never Smoker - Smokeless tobacco: Never Used Substance Use Topics - Alcohol use: Yes ? ? Alcohol/week: 5.0 standard drinks ? ? Types: 2 Glasses of Wine (5oz) per week ? ? Comment: 3 x per week - Drug use: No Medications: CURRENT MEDICATIONS Current Outpatient Medications Medication Sig - lisinopril (ZESTRIL, PRINIVIL) 5 mg tablet Take 1 tablet by mouth once daily. - sertraline (ZOLOFT) 50 mg tablet Take 1 tablet by mouth once daily. - simvastatin (ZOCOR) 20 mg tablet Take 1 tablet by mouth daily at bedtime. - EPINEPHrine (EPIPEN) 0.3 mg/0.3 mL auto-injector Inject 0.3 mL intramuscularly as directed. use as directed for allergic reaction. Seek emergent medical immediately after use. - albuterol HFA (PROAIR HFA) 90 mcg/actuation inhaler Inhale 2 Puffs as instructed every 4 hours as needed. (Patient taking differently: Inhale 2 Puffs as instructed. ) - fluticasone (FLONASE) 50 mcg/actuation nasal spray Use 2 Sprays in each nostril once daily. Rinse mouth after use. - meloxicam (MOBIC) 15 mg tablet Take 1 tablet by mouth once daily. - benzonatate (TESSALON PERLE) 100 mg capsule Take 2 capsules by mouth three times daily as needed. (Patient not taking: Reported on 03/08/2019 ) - aspirin, enteric coated (ASPIRIN, ENTERIC COATED) 81 mg EC tablet Take 81 mg by mouth once daily. - traZODone (DESYREL) 50 mg tablet Take 1 tablet by mouth daily at bedtime. (Patient not taking: Reported on 03/08/2019 ) - ammonium lactate (LAC-HYDRIN) 12 % lotion Apply 1 application to affected area as needed (to heels). (Patient not taking: Reported on 03/08/2019 ) ? No current facility-administered medications for this visit. ? Allergies: Allergen Xle-Hctya-Ykrum Bee; Mold; Propolis (Bee Glue); Seasonal [Other] ? ? ROS: General (negative for fatigue, malaise, weight loss/gain) HEENT (negative for headache, earache, recent vision changes, sinus pain, sore throat) Respiratory (no recent shortness of breath, hemoptysis) CV (negative for chest tightness, palpitations) Musculoskeletal (see HPI) Psych (no depression, anxiety) ? ? REFERRING PHYSICIAN: Ms. Jaz Dukes was referred to me for consultation by the following physician. This consultation note will be sent to the following physician by either mail or electronic medical record. ? Herbert Vieira MD [address] [facility] [address] ? MICAH HIGH MD [address] [facility] [address] ? This note was partially generated using Playfire voice recognition system, and there may be some incorrect words, spellings, and punctuation that were not noted in checking the note before saving. ? ? Chad Wilkins MD ? [facility] OPERATIVE NOon 03-16-2019 OPERATIVE NO HNO ID: [id number] Author: Chad Wilkins Service: Orthopaedic Surgery Author Type: Physician Type: Operative Report Filed: 03/16/2019 5:35 PM Note Text: OPERATIVE/PROCEDURE REPORT LOG ID: [id number] SURGERY/PROCEDURE DATE: 03/16/2019 INCISION/PROCEDURE START TIME: 10:18 AM INCISION CLOSE/PROCEDURE END TIME: 10:34 AM SURGEON(S)/PROCEDURALIS T(S) AND HEART NURSE(S): Surgeon(s) and Role: * Chad Wilkins - Primary Physician Pin Puller: Minda Morocho (Pa) Registered Nurse Early Childhood Education Coordinator: Fauzia (Gale) GALE Shabazz SURGERY/PROCEDURE(S): Left, ring finger, excision of the digital mucous cyst This is a pleasant, 63-year-old female who presented with an area of swelling, soft tissue mass formation left, ring finger. After reviewing the risks, benefits, alternatives and potential complications involving both operative and nonoperative care, the patient wished to pursue surgical excision. On 03/16/2019, the patient was clearly identified in the preoperative area and marked accordingly on the left ring finger by myself. In the preoperative area after a ChloraPrep prep, 1% lidocaine with 1-200,000 epinephrine was provided for 3 cc on the dorsum of the digit. Patient was taken to the operative suite and placed in a supine position with an arm board on the left. All other bony landmarks were appropriately padded in standard fashion. The left upper extremity was then sterilely prepped and draped in standard fashion. An appropriate time out was conducted and all in the room were in agreement, signed consent form was on the chart. An L shaped incision was made over the DIP extensor surface extending on the lateral portion of the digit on its ulnar side. Full-thickness skin flap was developed and I worked my way centrally and slowly, attempting to not buttonhole the skin of the ganglion cyst. I freed up the dermis and worked my way from underneath the skin flap. The cyst was easily identified and decompressed, I was able to trace the cyst distally and decompressed and fully remove it, using bipolar electrocautery at its origin. There was a small rent in the lateral joint capsule and the lateral spur was removed with a small bone rongeur. I flushed the wound and the joint with normal saline. Skin closure was completed with a series of 4-0 nylon sutures in interrupted and horizontal mattress fashion. No specimen was needed to be sent as it was clearly a ganglion cyst. Xeroform gauze, sterile 4 x 4 and a light Carmen wrap and Coban was used for final bandage. There were no complications during the procedure. Patient was safely transferred to the postanesthetic care unit in stable condition. PRE-OP/PRE-PROCEDURE DIAGNOSIS: Left, ring finger, digital mucous cyst. POST-OP/POST-PROCEDURE DIAGNOSIS: same ESTIMATED BLOOD LOSS: 0 ml SPECIMENS: none sent IMPLANTABLE DEVICES: None DRAINS: None COMPLICATIONS: None PARTICIPATION IN SURGERY/PROCEDURE: I/primary surgeon/proceduralist performed the entire procedure. SIGNATURE: Chad Wilkins MD PATIENT NAME: Jaz Dukes DATE: March 16, 2019 TIME: 5:32 PM PAGER/CONTACT #: [facility] PT EDon 03-16-2019 PT ED HNO ID: [id number] Author: Cristina (Gale) GALE Urena Service: ? Author Type: Registered Nurse Type: Patient Education Filed: 03/16/2019 11:02 AM Note Text: POST OP LEARNING RESPONSE INSTRUCTION PROVIDED TO: Patient METHOD OF INSTRUCTION: Teach Back done Individual instruction Written instruction - handouts Verbal instruction PATIENT / FAMILY RESPONSE: Verbalizes understanding of: MEDICATION PRESCRIBED-Accurate knowledge of prescribed medication prior to discharge POST-OPERATIVE INSTRUCTIONS-Correct actions to take to reduce postoperative complications WORSENING CONDITION-Signs and symptoms of a worsening condition that warrant a call to the physician WOUND CARE-Correct procedure to perform wound care FOLLOW-UP PLAN: Patient instructed to call with any further issues Contact information given. SUPPLEMENTAL MATERIAL: None REFERRAL (RECOMMENDATION): None Electronically Signed By: Cristina Urena RN In Department: [facility] SURGERY [facility] PT ED HNO ID: [id number] Author: Cristina (Rn) GALE Urena Service: ? Author Type: Registered Nurse Type: Patient Education Filed: 03/16/2019 8:36 AM Note Text: PRE OP LEARNING ASSESSMENT PROCEDURE/SURGERY: SURGERY: excision left ring finger READINESS TO LEARN interested COGNITIVE ABILITY: Alert and oriented MOTIVATION TO LEARN: Interested FAMILY SUPPORT: Unable to assess - Family not present PATIENT LEARNS BEST BY: Individual Instruction Verbal Instruction FACTORS AFFECTING LEARNING: None PHYSICAL LIMITATIONS AFFECTING LEARNING: None Electronically Signed By: Cristina Urena RN In Department: [facility] SURGERY [facility] HOSPon 03-08-2019 HOSP Patient:Ariel Dukes nomi Baltazar MRN: Height:5' 2(1.575 m) Weight:156 lb (70.761 kg) Outpatient Medications as of 03/16/19: LORazepam (ATIVAN) 0.5 mg tab lisinopril (ZESTRIL, PRINIVIL) 5 mg tablet sertraline (ZOLOFT) 50 mg tablet simvastatin (ZOCOR) 20 mg tablet EPINEPHrine (EPIPEN) 0.3 mg/0.3 mL auto-injector fluticasone (FLONASE) 50 mcg/actuation nasal spray meloxicam (MOBIC) 15 mg tablet Admission/Clinic Administered Medications as of 03/16/19: lidocaine-EPINEPHrine 2 %-1:100,000 10 mL injection Problem List: Mixed hyperlipidemia [E78.2] Other psoriasis [L40.8] Personal history of other malignant neoplasm of skin [Z85.828] Major depressive disorder, recurrent episode (HCC) [F33.9] Trigger middle finger of right hand [M65.331] Trigger thumb of left hand [M65.312] Primary osteoarthritis of right hand [M19.041] Anxiety [F41.9] Allergies: Allergen Fke-Oqnvk-Kkvxu Bee Mold Propolis (Bee Glue) Seasonal [Other] Date Verified: 03/16/19 Lab Values No results within the last 30 days for the following basenames: K,HCT Progress Notes ([facility]): MICAH HIGH MD 03/09/2019 1:41 PM Signed Reason for Visit Patient presents with: Established Patient: 6 month follow up- refill:ativan Jaz Dukes is a 63 year old female who presents here today for Above Complaints.. Health Maintenance BP CONTROLLED (<130/80) HEPATITIS C SCREENING HPI HTN: Compliant with medications. Denies any chest pain, palpitations, or edema. No SOB. Doesn't check BP at home generally. Careful with diet to avoid salt, trying to eat more fruits and vegetables, exercises regularly. ? ? HPL: Reviewed test results with patient , takes medications regularly , does not report side effects. Conscious to avoid red meats, full fat dairy and its by products. Exercising 3 to 5 times a week. ? Anxiety: well controlled on the zolfot. Still has to take the ativan when she is flying. She has not gained weight since she last saw me. Is counseling with , has been working with her since her daughter was diagnosed with Melanoma.at the age of 25. ? Insomnia, well controlled with the prn trazodone. No problem-specific Assessment AND Plan notes found for this encounter. PAST MEDICAL HISTORY Diagnosis Date - Abnormal glandular Papanicolaou smear of cervix 04/23/2005 Abn. Pap smear (cervix), Ascus - Carcinoma in situ, site unspecified basal cell and squamous left leg - Hypertension - Internal hemorrhoids without mention of complication - Irregular menstrual cycle perimenopausal bleeding - Snoring PAST SURGICAL HISTORY Procedure Laterality Date - BX OF BREAST; INCISIONAL 11/28/2000 left breast - CERVIX UTERI CONIZA LP ELCTRO EXCI 08/03/2000 LEEP-Cervix - COLONOSCOP W/ OR W/O [facility] SPE[facility] 05/17/06 - COLONOSCOP W/ OR W/O [facility] SPEC 06/16/2017 Colonoscopy - COLPOSCOPY (VAGINOSCOPY) 07/15/2000 Colposcopy - LIGATE FALLOPIAN TUBE 05/27/1992 Tubal ligation, BPS - OTHER MOHS- removal of squamous cells - PAST SURGICAL HISTORY OF Broken Nose Repair - PAST SURGICAL HISTORY OF 09/17/2004 EMB - PAST SURGICAL HISTORY OF 09/2004 BONE DENSITTY - REMOVAL OF TONSILS,<12 Y/O Tonsillectomy - SKIN BX, 1 LESION 12/15/2000 basal cell CA, on face FAMILY HISTORY Problem Relation Age of Onset - Diabetes Father non-insulin - Cancer Father Bladder and Basil Cell - Cancer Paternal Grandmother Ovarian age 45 - Lipids Mother Hyperlipidemia,stroke - Heart Mother 65 [place] - Hypertension Mother - Arthritis Mother - Cancer Mother Skin cancer - unsure of cell type - other (heartburn) Son - other (Other) Other No breast/uterine/colon cancer - other (melanoma) Daughter Social History Tobacco Use - Smoking status: Never Smoker - Smokeless tobacco: Never Used Substance Use Topics - Alcohol use: Yes Alcohol/week: 5.0 standard drinks Types: 2 Glasses of Wine (5oz) per week Comment: 3 x per week - Drug use: No Past medical history, appointments, medications, allergies reviewed. Pertinent Lab/Diagnostic Studies are reviewed and discussed today Current Outpatient Medications: - lisinopril (ZESTRIL, PRINIVIL) 5 mg tablet - sertraline (ZOLOFT) 50 mg tablet - simvastatin (ZOCOR) 20 mg tablet - benzonatate (TESSALON PERLE) 100 mg capsule - EPINEPHrine (EPIPEN) 0.3 mg/0.3 mL auto-injector - aspirin, enteric coated (ASPIRIN, ENTERIC COATED) 81 mg EC tablet - traZODone (DESYREL) 50 mg tablet - ammonium lactate (LAC-HYDRIN) 12 % lotion - albuterol HFA (PROAIR HFA) 90 mcg/actuation inhaler - fluticasone (FLONASE) 50 mcg/actuation nasal spray - meloxicam (MOBIC) 15 mg tablet Review of Systems CONSTITUTIONAL: No fevers, chills night sweats, unintended weight loss CARDIOVASCULAR: No chest pain, dyspnea, palpitations, orthopnea, PND, ankle edema. PULM: No dyspnea, unexplained cough. GI: No dysphagia/odynophagia, problematic reflux, constipation, diarrhea, changes in stool habits, hematochezia, melena. : No new urinary complaints, including dysuria, gross hematuria or pyuria. NEURO: No new balance problems, peripheral weakness/paresthesias or numbness of concern. Physical Exam BP 124/68 (BP Site: Left Arm, BP Position: Sitting, BP Cuff Size: Regular Adult) Pulse 74 Resp 12 Ht 157.5 cm (5' 2) Wt 70.8 kg (156 lb) LMP 12/12/2009 SpO2 100% BMI 28.53 kg/m? General appearance: Well appearing, alert, in no acute distress, well nourished. Skin: Skin color, texture, turgor normal, no suspicious rashes or lesions Head: Normocephalic, no masses, lesions, tenderness or abnormalities Eyes: Anicteric sclera. Pupils are equally round and reactive to light. Extraocular movements are intact. Lungs: Lungs clear to auscultation. No wheezing, rhonchi, rales Heart: RRR without murmur, gallop, or rubs. Extremities: No deformities, edema, skin discoloration, clubbing or cyanosis. Good capillary refill. ASSESSMENT/PLAN: 1. Essential hypertension - ICD9: 401.9, ICD10: I10 (primary diagnosis) - good control - Recommended regular aerobic exercise. - Recommend home blood pressure monitoring, to bring results in on next visit - Goal of BP <130/80 2. Claustrophobia - ICD9: 300.29, ICD10: F40.240 - LORAZEPAM 0.5 MG TABLET 3. Mixed hyperlipidemia - ICD9: 272.2, ICD10: E78.2 - good control - Continue current medication. 4. Anxiety and depression - ICD9: 300.00, 311, ICD10: F41.9, F32.9 The anxiety and depression is better controlled by 5. Elevated blood sugar - ICD9: 790.29, ICD10: R73.9 - HGB A1C MICAH HIGH MD Progress Notes ([facility]): Batsheva Emmanuel Ma 03/08/2019 9:46 AM Signed Patient scheduled for Excision of digital cyst left ring finger on 03/16/2019 under local. Batsheva Emmanuel Ma 03/08/2019 11:22 AM Signed Surgical request completed. Surgery confirmation letter and post op appointments mailed to patient. Tracie Gomez [facility] 03/08/2019 1:03 PM Signed Noted in [place]. Carrol Mccollum Ma 03/08/2019 4:47 PM Signed Surgery has been scheduled as requested. Normal [facility] Vital Signs Date Time Vital Sign Value Performing Clinician Yanni sutherland 12-06-2024 17:56-0400 Body temperature 98.9 [degF] Dr. Micah High MD Work Phone: [facility] 12-06-2024 17:56-0400 Diastolic blood pressure 83 mm[Hg] Dr. Micah High MD Work Phone: 7(422)041-670627 [place] [address] 12-06-2024 17:56-0400 Heart rate 50 /min Dr. Micah High MD Work Phone: 0(122)446-977427 [place] [address] 12-06-2024 17:56-0400 Respiratory rate 16 /min Dr. Micah High MD Work Phone: 9(958)796-022427 [place] [address] 12-06-2024 17:56-0400 SaO2% (BldA) [Mass fraction] 100 % Dr. Micah High MD Work Phone: 4(392)428-400227 [place] [address] 12-06-2024 17:56-0400 Systolic blood pressure 165 mm[Hg] Dr. Micah High MD Work Phone: 3(813)435-446327 [place] [address] 12-06-2024 15:23-0400 Body height 157.[address] Micah High MD Work Phone: 3(997)146-483227 [place] [address] 12-06-2024 15:23-0400 Body mass index (BMI) [Ratio] 23.2 kg/m2 Dr. Micah High MD Work Phone: 7(549)898-738027 [place] [address] 12-06-2024 15:23-0400 Body weight 57.[address] Micah High MD Work Phone: 7(125)476-539727 [place] [address] 08-29-2024 13:50-0400 Body mass index (BMI) [Ratio] 24 kg/m2 Micah High MD Work Phone: 1(653)956-885184 [place] [address] 08-29-2024 13:50-0400 Body weight 57.61 kg Micah High MD Work Phone: 5(904)721-896784 [place] [address] 08-29-2024 13:50-0400 Diastolic blood pressure 68 mm[Hg] Micah High MD Work Phone: 1(201)934-913450 [place] [address] 08-29-2024 13:50-0400 Heart rate 65 /min Micah High MD Work Phone: 6(169)679-944284 [place] [address] 08-29-2024 13:50-0400 Respiratory rate 16 /min Micah High MD Work Phone: 8(221)475-206850 [place] [address] 08-29-2024 13:50-0400 SaO2% (BldA) [Mass fraction] 97 % Micah High MD Work Phone: [facility] 08-29-2024 13:50-0400 Systolic blood pressure 124 mm[Hg] Micah High MD Work Phone: [facility] 08-21-2024 13:20-0400 Body mass index (BMI) [Ratio] 24 kg/m2 Micah High MD Work Phone: [facility] 08-21-2024 13:20-0400 Body temperature 97.39 [degF] Micah High MD Work Phone: [facility] 08-21-2024 13:20-0400 Body weight 57.61 kg Micah High MD Work Phone: [facility] 08-21-2024 13:20-0400 Diastolic blood pressure 70 mm[Hg] Micah High MD Work Phone: [facility] 08-21-2024 13:20-0400 Heart rate 72 /min Micah High MD Work Phone: [facility] 08-21-2024 13:20-0400 Respiratory rate 16 /min Micah High MD Work Phone: [facility] 08-21-2024 13:20-0400 Systolic blood pressure 120 mm[Hg] Micah High MD Work Phone: [facility] 06-05-2024 10:41-0400 Body height 154.9 cm Micah High MD Work Phone: [facility] 06-05-2024 10:41-0400 Body mass index (BMI) [Ratio] 25.17 kg/m2 Micah High MD Work Phone: [facility] 06-05-2024 10:41-0400 Body weight 60.42 kg Micah High MD Work Phone: [facility] 06-05-2024 10:41-0400 Diastolic blood pressure 84 mm[Hg] Micah High MD Work Phone: [facility] 06-05-2024 10:41-0400 Heart rate 75 /min Micah High MD Work Phone: 6(451)693-731150 [place] [address] 06-05-2024 10:41-0400 SaO2% (BldA) [Mass fraction] 99 % Micah High MD Work Phone: 6(409)566-949150 [place] [address] 06-05-2024 10:41-0400 Systolic blood pressure 132 mm[Hg] Micah High MD Work Phone: 1(396)542-954550 [place] [address] 05-10-2024 15:30-0500 Body temperature 98 [degF] Dr. Micah High MD Work Phone: 2(526)363-834327 [place] [address] 05-10-2024 15:30-0500 Diastolic blood pressure 89 mm[Hg] Dr. Micah High MD Work Phone: 6(034)370-360827 [place] [address] 05-10-2024 15:30-0500 Heart rate 78 /min Dr. Micah High MD Work Phone: 6(055)063-130527 [place] [address] 05-10-2024 15:30-0500 Respiratory rate 16 /min Dr. Micah High MD Work Phone: 4(421)498-057927 [place] [address] 05-10-2024 15:30-0500 SaO2% (BldA) [Mass fraction] 99 % Dr. Micah High MD Work Phone: 6(563)696-673427 [place] [address] 05-10-2024 15:30-0500 Systolic blood pressure 138 mm[Hg] Dr. Micah High MD Work Phone: 5(485)581-917827 [place] [address] 05-10-2024 12:19-0500 Body height 154.[address] Micah High MD Work Phone: 2(934)045-638627 [place] [address] 02-21-2024 12:55-0500 Body mass index (BMI) [Ratio] 25.11 kg/m2 Micah High MD Work Phone: 4(487)015-666950 [place] [address] 02-21-2024 12:55-0500 Body weight 60.78 kg Micah High MD Work Phone: 2(795)416-344284 [place] [address] 02-21-2024 12:55-0500 Diastolic blood pressure 80 mm[Hg] Micah High MD Work Phone: [facility] 02-21-2024 12:55-0500 Heart rate 70 /min Micah High MD Work Phone: [facility] 02-21-2024 12:55-0500 Respiratory rate 16 /min Micah High MD Work Phone: [facility] 02-21-2024 12:55-0500 Systolic blood pressure 124 mm[Hg] Micah High MD Work Phone: [facility] 12-28-2023 17:53-0400 Body mass index (BMI) [Ratio] 25.66 kg/m2 Ben Chambers MD Work Phone: [facility] 12-28-2023 17:53-0400 Body temperature 97.3 [degF] Ben Chambers MD Work Phone: [facility] 12-28-2023 17:53-0400 Body weight 62.1 kg Ben Chambers MD Work Phone: [facility] 12-28-2023 17:53-0400 Diastolic blood pressure 68 mm[Hg] Ben Chambers MD Work Phone: [facility] 12-28-2023 17:53-0400 Heart rate 65 /min Ben Chambers MD Work Phone: [facility] 12-28-2023 17:53-0400 Respiratory rate 21 /min Ben Chambers MD Work Phone: [facility] 12-28-2023 17:53-0400 SaO2% (BldA) [Mass fraction] 98 % Ben Chambers MD Work Phone: [facility] 12-28-2023 17:53-0400 Systolic blood pressure 100 mm[Hg] Ben Chambers MD Work Phone: [facility] 11-29-2023 10:31-0400 Body mass index (BMI) [Ratio] 24.74 kg/m2 Micah High MD Work Phone: [facility] 11-29-2023 10:31-0400 Body weight 59.88 kg Micah High MD Work Phone: [facility] 11-29-2023 10:31-0400 Diastolic blood pressure 76 mm[Hg] Micah High MD Work Phone: [facility] 11-29-2023 10:31-0400 Heart rate 67 /min Micah High MD Work Phone: [facility] 11-29-2023 10:31-0400 Respiratory rate 16 /min Micah High MD Work Phone: [facility] 11-29-2023 10:31-0400 Systolic blood pressure 124 mm[Hg] Micah High MD Work Phone: [facility] 09-26-2023 11:50-0400 Body mass index (BMI) [Ratio] 24.93 kg/m2 Ryann Loco CORPORATE CONTROLLER.DIE TECHNICIAN Work Phone: [facility] 09-26-2023 11:50-0400 Body weight 60.33 kg Ryann Loco CORPORATE CONTROLLER.DIE TECHNICIAN Work Phone: [facility] 09-26-2023 11:50-0400 Diastolic blood pressure 79 mm[Hg] Ryann Loco CORPORATE CONTROLLER.DIE TECHNICIAN Work Phone: [facility] 09-26-2023 11:50-0400 Heart rate 68 /min Ryann Loco CORPORATE CONTROLLER.DIE TECHNICIAN Work Phone: [facility] 09-26-2023 11:50-0400 Respiratory rate 16 /min Ryann Loco CORPORATE CONTROLLER.DIE TECHNICIAN Work Phone: [facility] 09-26-2023 11:50-0400 SaO2% (BldA) [Mass fraction] 99 % Ryann Loco CORPORATE CONTROLLER.DIE TECHNICIAN Work Phone: [facility] 09-26-2023 11:50-0400 Systolic blood pressure 138 mm[Hg] Ryann Loco CORPORATE CONTROLLER.DIE TECHNICIAN Work Phone: [facility] 09-23-2023 14:11-0400 Body height 155.6 cm Shar Enamorado MD Work Phone: [facility] 09-23-2023 14:11-0400 Body mass index (BMI) [Ratio] 24.93 kg/m2 Shar Enamorado MD Work Phone: [facility] 09-23-2023 14:11-0400 Body weight 60.33 kg Shar Enamorado MD Work Phone: [facility] 09-23-2023 14:11-0400 Diastolic blood pressure 72 mm[Hg] Shar Enamorado MD Work Phone: [facility] 09-23-2023 14:11-0400 Systolic blood pressure 116 mm[Hg] Shar Enamorado MD Work Phone: [facility] 08-19-2023 12:02-0400 Body mass index (BMI) [Ratio] 24.4 kg/m2 Josafat Reynolds CORPORATE CONTROLLER.DIE TECHNICIAN Work Phone: [facility] 08-19-2023 12:02-0400 Body temperature 98.2 [degF] Josafat Reynolds CORPORATE CONTROLLER.DIE TECHNICIAN Work Phone: [facility] 08-19-2023 12:02-0400 Body weight 60.5 kg Josafat Reynolds CORPORATE CONTROLLER.DIE TECHNICIAN Work Phone: [facility] 08-19-2023 12:02-0400 Diastolic blood pressure 72 mm[Hg] Josafat Reynolds CORPORATE CONTROLLER.DIE TECHNICIAN Work Phone: [facility] 08-19-2023 12:02-0400 Heart rate 72 /min Josafat Reynolds CORPORATE CONTROLLER.DIE TECHNICIAN Work Phone: [facility] 08-19-2023 12:02-0400 Respiratory rate 16 /min Josafat Reynolds CORPORATE CONTROLLER.DIE TECHNICIAN Work Phone: [facility] 08-19-2023 12:02-0400 SaO2% (BldA) [Mass fraction] 98 % Josafat Reynolds CORPORATE CONTROLLER.DIE TECHNICIAN Work Phone: [facility] 08-19-2023 12:[id number] Systolic blood pressure 122 mm[Hg] Josafat Rodolfo CORPORATE CONTROLLER.DIE TECHNICIAN Work Phone: [facility] 07-25-2023 09:[id number] Body height 157.5 cm CORPORATE CONTROLLER.DIE TECHNICIAN Work Phone: [facility] 07-25-2023 09:26-0400 Body mass index (BMI) [Ratio] 24.14 kg/m2 CORPORATE CONTROLLER.DIE TECHNICIAN Work Phone: [facility] 07-25-2023 09:040 Body weight 59.88 kg CORPORATE CONTROLLER.DIE TECHNICIAN Work Phone: [facility] 07-25-2023 09:26-0400 Diastolic blood pressure 60 mm[Hg] CORPORATE CONTROLLER.DIE TECHNICIAN Work Phone: [facility] 07-25-2023 09:26-0400 Heart rate 66 /min CORPORATE CONTROLLER.DIE TECHNICIAN Work Phone: [facility] 07-25-2023 [id number] Respiratory rate 12 /min CORPORATE CONTROLLER.DIE TECHNICIAN Work Phone: [facility] 07-25-2023 09:26-0400 SaO2% (BldA) [Mass fraction] 99 % CORPORATE CONTROLLER.DIE TECHNICIAN Work Phone: [facility] 07-25-2023 09:26-0400 Systolic blood pressure 114 mm[Hg] CORPORATE CONTROLLER.DIE TECHNICIAN Work Phone: [facility] 04-26-2023 11:48-0500 Body temperature 99.39 [degF] Nilda Anton CORPORATE CONTROLLER.DIE TECHNICIAN Work Phone: [facility] 04-26-2023 11:48-0500 Body weight 58.51 kg Nilda Anton CORPORATE CONTROLLER.DIE TECHNICIAN Work Phone: [facility] 04-26-2023 11:48-0500 Diastolic blood pressure 76 mm[Hg] Nilda Anton CORPORATE CONTROLLER.DIE TECHNICIAN Work Phone: [facility] 04-26-2023 11:48-0500 Heart rate 69 /min Nilda Anton CORPORATE CONTROLLER.DIE TECHNICIAN Work Phone: [facility] 04-26-2023 11:48-0500 Respiratory rate 16 /min Nilda Anton CORPORATE CONTROLLER.DIE TECHNICIAN Work Phone: [facility] 04-26-2023 11:48-0500 SaO2% (BldA) [Mass fraction] 97 % Nilda Anton CORPORATE CONTROLLER.DIE TECHNICIAN Work Phone: [facility] 04-26-2023 11:48-0500 Systolic blood pressure 114 mm[Hg] Nilda Anton CORPORATE CONTROLLER.DIE TECHNICIAN Work Phone: [facility] 04-03-2023 08:52-0500 Body temperature 98.6 [degF] Rosa Patrick CORPORATE CONTROLLER.DIE TECHNICIAN Work Phone: [facility] 04-03-2023 08:52-0500 Body weight 58.51 kg Rosa Patrick CORPORATE CONTROLLER.DIE TECHNICIAN Work Phone: [facility] 04-03-2023 08:52-0500 Diastolic blood pressure 73 mm[Hg] Rosa Smithfield CORPORATE CONTROLLER.DIE TECHNICIAN Work Phone: [facility] 04-03-2023 08:52-0500 Heart rate 70 /min Rosa Patrick CORPORATE CONTROLLER.DIE TECHNICIAN Work Phone: [facility] 04-03-2023 08:52-0500 Respiratory rate 22 /min Rosa Patrick CORPORATE CONTROLLER.DIE TECHNICIAN Work Phone: [facility] 04-03-2023 08:52-0500 SaO2% (BldA) [Mass fraction] 96 % Rosa Patrick CORPORATE CONTROLLER.DIE TECHNICIAN Work Phone: [facility] 04-03-2023 08:52-0500 Systolic blood pressure 112 mm[Hg] Rosa Smithfield CORPORATE CONTROLLER.DIE TECHNICIAN Work Phone: [facility] 12-22-2022 11:38-0400 Body weight 62.14 kg Ladi Older CORPORATE CONTROLLER.DIE TECHNICIAN Work Phone: [facility] 12-22-2022 11:38-0400 Diastolic blood pressure 74 mm[Hg] Ladi Older CORPORATE CONTROLLER.DIE TECHNICIAN Work Phone: [facility] 12-22-2022 11:38-0400 Heart rate 60 /min Ladi Older CORPORATE CONTROLLER.DIE TECHNICIAN Work Phone: [facility] 12-22-2022 11:38-0400 Respiratory rate 16 /min Ladi Older CORPORATE CONTROLLER.DIE TECHNICIAN Work Phone: [facility] 12-22-2022 11:38-0400 SaO2% (BldA) [Mass fraction] 97 % Ladi Older CORPORATE CONTROLLER.DIE TECHNICIAN Work Phone: [facility] 12-22-2022 11:38-0400 Systolic blood pressure 128 mm[Hg] Ladi Older CORPORATE CONTROLLER.DIE TECHNICIAN Work Phone: [facility] 11-10-2022 08:09-0400 Body weight 57.61 kg Ladi Older CORPORATE CONTROLLER.DIE TECHNICIAN Work Phone: [facility] 11-10-2022 08:09-0400 Diastolic blood pressure 80 mm[Hg] Ladi Older CORPORATE CONTROLLER.DIE TECHNICIAN Work Phone: [facility] 11-10-2022 08:09-0400 Heart rate 60 /min Ladi Older CORPORATE CONTROLLER.DIE TECHNICIAN Work Phone: [facility] 11-10-2022 08:09-0400 Respiratory rate 16 /min Ladi Older CORPORATE CONTROLLER.DIE TECHNICIAN Work Phone: [facility] 11-10-2022 08:09-0400 SaO2% (BldA) [Mass fraction] 100 % Ladi Older CORPORATE CONTROLLER.DIE TECHNICIAN Work Phone: [facility] 11-10-2022 08:09-0400 Systolic blood pressure 128 mm[Hg] Ladi Older CORPORATE CONTROLLER.DIE TECHNICIAN Work Phone: [facility] 09-21-2022 13:52-0400 Body height 157.5 cm Shar Enamorado MD Work Phone: [facility] 09-21-2022 13:52-0400 Body weight 60.69 kg Shar Enamorado MD Work Phone: [facility] 09-21-2022 13:52-0400 Diastolic blood pressure 68 mm[Hg] Shar Enamorado MD Work Phone: [facility] 09-21-2022 13:52-0400 Systolic blood pressure 118 mm[Hg] Shar Enamorado MD Work Phone: [facility] 08-21-2022 15:27-0400 Body temperature 97.9 [degF] Trang Maxx CORPORATE CONTROLLER.DIE TECHNICIAN Work Phone: [facility] 08-21-2022 15:27-0400 Body weight 61.42 kg Trang Maxx CORPORATE CONTROLLER.DIE TECHNICIAN Work Phone: [facility] 08-21-2022 15:27-0400 Diastolic blood pressure 74 mm[Hg] Trang Maxx CORPORATE CONTROLLER.DIE TECHNICIAN Work Phone: [facility] 08-21-2022 15:27-0400 Heart rate 81 /min Trang Maxx CORPORATE CONTROLLER.DIE TECHNICIAN Work Phone: [facility] 08-21-2022 15:27-0400 Respiratory rate 16 /min Trang Maxx CORPORATE CONTROLLER.DIE TECHNICIAN Work Phone: [facility] 08-21-2022 15:27-0400 SaO2% (BldA) [Mass fraction] 98 % Trang Maxx CORPORATE CONTROLLER.DIE TECHNICIAN Work Phone: [facility] 08-21-2022 15:27-0400 Systolic blood pressure 128 mm[Hg] Trang Maxx CORPORATE CONTROLLER.DIE TECHNICIAN Work Phone: [facility] 05-05-2022 09:02-0500 Body height 157.5 cm Micah High MD Work Phone: [facility] 05-05-2022 09:02-0500 Body temperature 97.9 [degF] Micah High MD Work Phone: [facility] 03-01-2023 09:02-0500 Body weight 61.24 kg Micah High MD Work Phone: [facility] 05-05-2022 09:02-0500 Diastolic blood pressure 76 mm[Hg] Micah High MD Work Phone: [facility] 05-05-2022 09:02-0500 Heart rate 63 /min Micah High MD Work Phone: [facility] 05-05-2022 09:02-0500 Respiratory rate 12 /min Micah High MD Work Phone: [facility] 05-05-2022 09:02-0500 SaO2% (BldA) [Mass fraction] 97 % Micah High MD Work Phone: [facility] 05-05-2022 09:02-0500 Systolic blood pressure 132 mm[Hg] Micah High MD Work Phone: [facility] 01-05-2022 10:45-0400 Body height 157.5 cm Micah High MD Work Phone: [facility] 01-05-2022 10:45-0400 Body temperature 98.49 [degF] Micha High MD Work Phone: [facility] 01-05-2022 10:45-0400 Body weight 63.5 kg Micah High MD Work Phone: [facility] 01-05-2022 10:45-0400 Diastolic blood pressure 74 mm[Hg] Micah High MD Work Phone: [facility] 01-05-2022 10:45-0400 Heart rate 68 /min Micah High MD Work Phone: [facility] 01-05-2022 10:45-0400 Respiratory rate 12 /min Micah High MD Work Phone: [facility] 01-05-2022 10:45-0400 SaO2% (BldA) [Mass fraction] 98 % Micah High MD Work Phone: [facility] 01-05-2022 10:45-0400 Systolic blood pressure 122 mm[Hg] Micah High MD Work Phone: [facility] 12-28-2021 10:27-0400 Body height 157.5 cm Batsheva Garcia MD Work Phone: [facility] 12-28-2021 10:27-0400 Body temperature 98.1 [degF] Batsheva Garcia MD Work Phone: [facility] 12-28-2021 10:27-0400 Body weight 64.23 kg Batsheva Garcia MD Work Phone: [facility] 12-28-2021 10:27-0400 Diastolic blood pressure 78 mm[Hg] Batsheva Garcia MD Work Phone: [facility] 12-28-2021 10:27-0400 Heart rate 69 /min Batsheva Garcia MD Work Phone: [facility] 12-28-2021 10:27-0400 Respiratory rate 14 /min Batsheva Garcia MD Work Phone: [facility] 12-28-2021 10:27-0400 SaO2% (BldA) [Mass fraction] 100 % Batsheva Garcia MD Work Phone: [facility] 12-28-2021 10:27-0400 Systolic blood pressure 142 mm[Hg] Batsheva Garcia MD Work Phone: [facility] 12-14-2021 10:17-0400 Body height 157.5 cm Batsheva Garcia MD Work Phone: [facility] 12-14-2021 10:17-0400 Body temperature 98.01 [degF] Batsheva Garcia MD Work Phone: [facility] 12-14-2021 10:17-0400 Body weight 63.59 kg Batsheva Garcia MD Work Phone: [facility] 12-14-2021 10:17-0400 Diastolic blood pressure 82 mm[Hg] Batsheva Garcia MD Work Phone: [facility] 12-14-2021 10:17-0400 Heart rate 78 /min Batsheva Garcia MD Work Phone: [facility] 12-14-2021 10:17-0400 SaO2% (BldA) [Mass fraction] 99 % Batsheva Garcia MD Work Phone: [facility] 12-14-2021 10:17-0400 Systolic blood pressure 128 mm[Hg] Batsheva Garcia MD Work Phone: [facility] 12-05-2021 09:09-0400 Body weight 63.5 kg Micah High MD Work Phone: [facility] 12-05-2021 09:09-0400 Diastolic blood pressure 72 mm[Hg] Micah High MD Work Phone: [facility] 12-05-2021 09:09-0400 Heart rate 68 /min Micah High MD Work Phone: [facility] 12-05-2021 09:09-0400 Respiratory rate 16 /min Micah High MD Work Phone: [facility] 12-05-2021 09:09-0400 Systolic blood pressure 126 mm[Hg] Micah High MD Work Phone: [facility] 10-28-2021 13:04-0400 Body height 157.5 cm Micah High MD Work Phone: [facility] 10-28-2021 13:04-0400 Body temperature 97.81 [degF] Micah High MD Work Phone: [facility] 10-28-2021 13:04-0400 Body weight 63.05 kg Micah High MD Work Phone: [facility] 10-28-2021 13:04-0400 Diastolic blood pressure 64 mm[Hg] Micah High MD Work Phone: [facility] 10-28-2021 13:04-0400 Heart rate 70 /min Micah High MD Work Phone: [facility] 10-28-2021 13:04-0400 Respiratory rate 12 /min Micah High MD Work Phone: [facility] 10-28-2021 13:04-0400 SaO2% (BldA) [Mass fraction] 97 % Micah High MD Work Phone: [facility] 10-28-2021 13:04-0400 Systolic blood pressure 112 mm[Hg] Micah High MD Work Phone: [facility] 09-18-2021 15:45-0400 Body height 157.5 cm Shar Enamorado MD Work Phone: [facility] 09-18-2021 15:45-0400 Body weight 62.96 kg Shar Enamorado MD Work Phone: [facility] 09-18-2021 15:45-0400 Diastolic blood pressure 80 mm[Hg] Shar Enamorado MD Work Phone: [facility] 09-18-2021 15:45-0400 Systolic blood pressure 122 mm[Hg] Shar Enamorado MD Work Phone: [facility] Encounters Encounter Date Encounter Type Care Provider Facility Start: 12-06-2024 End: 12-06-2024 Emergency department patient visit Dr. Micah High MD Work Phone: -Emergency Department Work Phone: Start: 12-06-2024 End: 12-06-2024 ambulatory MICAH HIGH Facility:[facility] Start: 11-30-2024 End: 11-30-2024 [facility] Facility:[facility] Start: 11-07-2024 End: 11-19-2024 ambulatory Micah High MD Work Phone: Geriatrics Comment on above: Traveling to [place] - prescription for A tivan Tabs Start: 11-02-2024 End: 11-02-2024 ambulatory Darryl Gomez [facility] Comment on above: Cervicalgia (Primary Dx); Strain of left levator scapulae muscle, initial encounter; Acute pain of left knee Start: 10-19-2024 ambulatory MICAH HIHG Facility:[facility] Start: 10-19-2024 End: 10-19-2024 Subsequent hospital visit by physician Screen Mammo [facility] Comment on above: Breast cancer screening by mammogram [Z1 2.31] Start: 10-15-2024 End: 10-15-2024 ambulatory Darryl Cardenas PT [facility] Therapy Comment on above: Cervicalgia (Primary Dx); Strain of left levator scapulae muscle, initial encounter; Acute pain of left knee Start: 09-13-2024 End: 09-13-2024 ambulatory Darryl Cardenas PT [facility] Comment on above: Cervicalgia (Primary Dx); Strain of left levator scapulae muscle, initial encounter; Acute pain of left knee Start: 08-31-2024 End: 08-31-2024 ambulatory Darryl Cardenas PT [facility] Comment on above: Cervicalgia (Primary Dx); Strain of left levator scapulae muscle, initial encounter; Acute pain of left knee Start: 08-29-2024 End: 08-29-2024 Office consultation new/estab patient 60 min Micah High MD Work Phone: Geriatrics Comment on above: Concern about memory (Primary Dx); Family history of Alzheimer disease; Acquired hallux valgus of right foot; Hallux rigidus of right foot; Insomnia, unspecified type; RBD (REM behavioral disorder); Obstructive sleep apnea syndrome; Mixed hyperlipidemia Start: 08-29-2024 End: 08-29-2024 [facility] Start: 08-21-2024 End: 08-21-2024 Office outpatient visit 25 minutes Micah High MD Work Phone: Internal Medicine [place] Comment on above: Breast cancer screening by mammogram (Pr imary Dx); Essential hypertension; Panic attack; Claustrophobia; Cervicalgia Start: 08-21-2024 End: 08-21-2024 ambulatory MICAH HIGH Facility:[facility] Start: 08-17-2024 End: 08-17-2024 ambulatory Darryl Cardenas [facility] Physical Therapy Comment on above: Cervicalgia (Primary Dx); Strain of left levator scapulae muscle, initial encounter; Acute pain of left knee Start: 07-26-2024 [facility] Start: 06-19-2024 End: 06-19-2024 ambulatory Gemma Olmedo [employer] Work Phone: [facility] Comment on above: Cervicalgia (Primary Dx); Acute pain of left knee Start: 06-11-2024 End: 06-11-2024 ambulatory Darryl Cardenas PT [facility] Comment on above: Cervicalgia (Primary Dx); Strain of left levator scapulae muscle, initial encounter Start: 06-08-2024 End: 06-09-2024 Follow-up encounter Micah High MD Work Phone: Internal Medicine [place] Comment on above: Results Start: 06-08-2024 End: 06-08-2024 ambulatory MICAH HIGH Facility:[facility] Start: 06-05-2024 End: 06-05-2024 ambulatory [facility] Facility:[facility] Start: 06-05-2024 End: 06-05-2024 Office outpatient visit 25 minutes Micah High MD Work Phone: Internal Medicine [place] Comment on above: Mixed hyperlipidemia (Primary Dx); Essential hypertension; Anxiety and depression; Stress incontinence; Encounter for screening for depression; Family history of Alzheimer disease Start: 06-04-2024 End: 06-04-2024 ambulatory Darryl Cardenas [facility] Physical Therapy Comment on above: Cervicalgia (Primary Dx); Strain of left levator scapulae muscle, initial encounter; Acute pain of left knee Start: 05-30-2024 End: 06-05-2024 ambulatory STUART ROBLERO Facility:[facility] Start: 05-10-2024 End: 05-10-2024 Emergency department patient visit Kartik Bello Facility:[facility] Start: 05-07-2024 End: 05-07-2024 ambulatory Darryl Cardenas [facility] Physical Therapy Comment on above: Cervicalgia (Primary Dx); Strain of left levator scapulae muscle, initial encounter; Acute pain of left knee Start: 05-02-2024 End: 05-02-2024 Telephone encounter Micah High MD Work Phone: Internal [facility] [place] Comment on above: Insurance Authorization Start: 05-01-2024 End: 05-01-2024 [facility] Comment on above: Cervicalgia (Primary Dx); Strain of left levator scapulae muscle, initial encounter; Acute pain of left knee Start: 04-25-2024 End: 04-25-2024 ambulatory Darryl Cardenas [facility] Physical Therapy Comment on above: Cervicalgia (Primary Dx); Strain of left levator scapulae muscle, initial encounter; Acute pain of left knee Start: 04-18-2024 End: 04-18-2024 ambulatory Darryl Cardenas [facility] Physical Therapy Comment on above: Cervicalgia (Primary Dx); Strain of left levator scapulae muscle, initial encounter; Acute pain of left knee Start: 04-12-2024 End: 04-12-2024 ambulatory Darryl [facility] Physical Therapy Comment on above: Cervicalgia (Primary Dx); Strain of left levator scapulae muscle, initial encounter; Acute pain of left knee Start: 03-27-2024 End: 03-28-2024 ambulatory LIZA PATRICIO Facility:[id number] Comment on above: MARINE (stress urinary incontinence, female ) (Primary Dx) Start: 03-19-2024 End: 03-22-2024 Telephone encounter Micah High MD Work Phone: Internal Medicine [place] Comment on above: Appointment Start: 03-08-2024 End: 03-08-2024 ambulatory Darryl Cardenas [facility] Physical Therapy Comment on above: Cervicalgia (Primary Dx); Strain of left levator scapulae muscle, initial encounter; Acute pain of left knee Start: 03-01-2024 End: 03-01-2024 ambulatory Liza Patricio [facility] Physical Therapy Comment on above: MARINE (stress urinary incontinence, female ) (Primary Dx) Start: 02-23-2024 End: 02-23-2024 ambulatory Liza Patricio [facility] Physical Therapy Comment on above: MARINE (stress urinary incontinence, female ) (Primary Dx) Start: 02-21-2024 End: 02-21-2024 Office outpatient visit 15 minutes Micah High MD Work Phone: Internal Medicine [place] Comment on above: Medicare annual wellness visit, robertoe nt (Primary Dx); Mixed hyperlipidemia; Essential hypertension; Mild episode of recurrent major depressive disorder (HCC); Anxiety Start: 02-21-2024 End: 02-21-2024 ambulatory [facility] Facility:[facility] Start: 02-21-2024 End: 02-21-2024 Patient encounter procedure Micah High MD Work Phone: [facility] Start: 02-15-2024 End: 02-15-2024 ambulatory Darryl Cardenas PT [facility] Physical Therapy Comment on above: Cervicalgia (Primary Dx); Strain of left levator scapulae muscle, initial encounter; Acute pain of left knee Start: 02-07-2024 End: 02-07-2024 Subsequent hospital visit by physician [facility] Patricia Boyer Work Phone: Radiology Comment on above: Acquired hallux valgus of right foot [M2 0.11] Start: 02-07-2024 End: 02-07-2024 Patient encounter procedure Micheal Rao Work Phone: Podiatry Comment on above: Acquired hallux valgus of right foot (Pr imary Dx); Hallux rigidus of right foot Start: 02-07-2024 End: 02-07-2024 ambulatory Gemma Olmedo PTA Work Phone: [facility] Comment on above: Cervicalgia (Primary Dx); Strain of left levator scapulae muscle, initial encounter; Acute pain of left knee Start: 01-31-2024 End: 01-31-2024 ambulatory Liza [facility] Physical Therapy Comment on above: MARINE (stress urinary incontinence, female ) (Primary Dx) Start: 01-30-2024 ambulatory [facility] Facility:[facility] Start: 01-26-2024 End: 01-26-2024 ambulatory Leonard Parmar PTANILT [facility] Comment on above: Cervicalgia (Primary Dx); Strain of left levator scapulae muscle, initial encounter; Acute pain of left knee Start: 01-17-2024 End: 01-17-2024 ambulatory Leonard Parmar PT DPT [facility] Comment on above: Cervicalgia (Primary Dx); Strain of left levator scapulae muscle, initial encounter; Acute pain of left knee Start: 01-10-2024 End: 01-10-2024 ambulatory Gemma Olmedo [employer] Work Phone: [facility] Comment on above: Cervicalgia (Primary Dx); Strain of left levator scapulae muscle, initial encounter; Acute pain of left knee Start: 12-28-2023 End: 12-28-2023 ambulatory MICAH HIGH Facility:[facility] Start: 12-28-2023 End: 12-28-2023 Office outpatient visit 25 minutes Ben Chambers MD Work Phone: [facility] Comment on above: Tick bite of neck, initial encounter (Pr imary Dx) Start: 12-19-2023 End: 12-19-2023 ambulatory Darryl Cardenas PT [facility] Comment on above: Strain of left levator scapulae muscle, subsequent encounter (Primary Dx); Cervicalgia; Acute pain of left knee Start: 12-12-2023 End: 12-12-2023 ambulatory Liza [facility] Physical Therapy Comment on above: MARINE (stress urinary incontinence, female ) (Primary Dx) Start: 12-02-2023 End: 12-02-2023 ambulatory Liza Santiago Physical Therapy Comment on above: MARINE (stress urinary incontinence, female ) (Primary Dx) Start: 11-29-2023 End: 11-29-2023 Subsequent hospital visit by physician X[facility] Work Phone: Radiology Comment on above: Injury of left knee, initial encounter [ S89.92XA] Start: 11-29-2023 End: 11-29-2023 Office outpatient visit 25 minutes Micah High MD Work Phone: Internal Medicine [place] Comment on above: Injury of left knee, initial encounter ( Primary Dx); Knee effusion, left; Strain of left levator scapulae muscle, subsequent encounter; Cervicalgia Start: 11-10-2023 End: 11-10-2023 ambulatory Liza Santiago Physical Therapy Comment on above: MARINE (stress urinary incontinence, female ) (Primary Dx) Start: 10-17-2023 Documentation procedure Mammography Coordinator [facility] Department Start: 10-17-2023 Letter encounter Mammography Coordinator [facility] Start: 10-17-2023 End: 10-17-2023 Patient encounter status [facility] Start: 10-17-2023 End: 10-17-2023 Subsequent hospital visit by physician Screen Mammo [facility] Comment on above: Encounter for gynecological examination (general) (routine) without abnormal findings [Z01.419] Start: 09-26-2023 End: 09-26-2023 Patient encounter procedure Ryann Adan APRN.DIE TECHNICIAN Work Phone: Neurology Comment on above: RLS (restless legs syndrome) (Primary Dx ); PLMD (periodic limb movement disorder) Start: 09-23-2023 End: 09-23-2023 Patient encounter procedure Shar Enamorado MD Work Phone: OB/Gynecology Comment on above: Encounter for gynecological examination (general) (routine) without abnormal findings (Primary Dx); Encounter for screening mammogram for breast cancer; MARINE (stress urinary incontinence, female) Start: 09-23-2023 End: 09-23-2023 Patient encounter status Shar Enamorado MD Work Phone: [facility] Start: 08-19-2023 End: 08-19-2023 Subsequent hospital visit by physician Xr [facility] Work Phone: Radiology Comment on above: Subacute cough [R05.2] Start: 08-19-2023 End: 08-19-2023 Patient encounter procedure Josafat Reynolds APRN.DIE TECHNICIAN Work Phone: [facility] Comment on above: Subacute cough (Primary Dx); Sore throat Start: 07-25-2023 End: 07-25-2023 Patient encounter procedure Ladi Almanza APRN.DIE TECHNICIAN Work Phone: [facility] [place] Comment on above: Essential hypertension (Primary Dx); Mixed hyperlipidemia; Anxiety; Mild episode of recurrent major depressive disorder (HCC); H/O bee sting allergy Start: 07-12-2023 ambulatory Micah High MD Work Phone: Internal Medicine [facility] Start: 06-20-2023 Refchad High MD Work Phone: [facility] [place] Comment on above: Refill Request Start: 04-26-2023 ambulatory Nilda Cordero Anton CORPORATE CONTROLLER.DIE TECHNICIAN Work Phone: Internal Medicine [place] Comment on above: results Start: 04-26-2023 E-mail encounter from caregiver Nilda Walton ODALIS.DIE TECHNICIAN Work Phone: [facility] Start: 04-26-2023 End: 04-26-2023 Subsequent hospital visit by physician Xr [facility] Work Phone: Radiology Comment on above: Acute cough [R05.1] Start: 04-26-2023 End: 04-26-2023 Patient encounter procedure Nilda Walton CORPORATE CONTROLLER.DIE TECHNICIAN Work Phone: [facility] [place] Comment on above: Acute cough (Primary Dx); Shortness of breath; Malaise; Sore throat Start: 04-21-2023 Refill Ladi Older CORPORATE CONTROLLER.DIE TECHNICIAN Work Phone: [facility] [place] Comment on above: Refill Request Start: 04-08-2023 Refill Ladi Older CORPORATE CONTROLLER.DIE TECHNICIAN Work Phone: Internal Medicine [place] Comment on above: Refill Request Start: 04-03-2023 End: 04-03-2023 Patient encounter procedure Rosa Nguyen CORPORATE CONTROLLER.DIE TECHNICIAN Work Phone: [facility] Comment on above: Sore throat (Primary Dx); Bacterial pneumonia Start: 03-15-2023 End: 03-15-2023 Subsequent hospital visit by physician Javid [facility] [place] Work Phone: Radiology Comment on above: Right shoulder injury, initial encounter [S49.91XA] Start: 02-08-2023 End: 02-08-2023 ambulatory Quiana Alvarez CORPORATE CONTROLLER.SILVERING APPLICATOR Work Phone: [facility] [place] Comment on above: COVID-19 virus infection (Primary Dx) Start: 02-08-2023 End: 02-08-2023 Telemedicine consultation with patient Quiana Alvarez CORPORATE CONTROLLER.SILVERING APPLICATOR Work Phone: [facility] Start: 12-22-2022 End: 12-22-2022 Patient encounter procedure Ladi Almanza APRN.DIE TECHNICIAN Work Phone: [facility] [place] Comment on above: Anxiety (Primary Dx); Mild episode of recurrent major depressive disorder (HCC) Start: 12-03-2022 Refill Eyal Guerrier MD Work Phone: Neurology Comment on above: Refill Request Start: 11-10-2022 Telephone encounter Aura Lecarol ann HOPSON Work Phone: Adult Psychology Comment on above: Behavioral Health/Social Work Start: 11-10-2022 End: 11-10-2022 Patient encounter procedure Ladi Almanza APRN.DIE TECHNICIAN Work Phone: [facility] [place] Comment on above: Medicare annual wellness visit, subseque nt (Primary Dx); Mild episode of recurrent major depressive disorder (HCC); Anxiety; Hair loss; Essential hypertension; Bunion, right foot; Elevated glucose Start: 10-26-2022 ambulatory Micah High MD Work Phone: Internal Medicine [facility] [place] Start: 10-12-2022 Documentation procedure Mammography Coordinator [facility] Start: 10-12-2022 Letter encounter Mammography Coordinator [facility] Department Start: 10-11-2022 End: 10-11-2022 Subsequent hospital visit by physician Screen Mammo [facility] Comment on above: Encounter for screening mammogram for ma lignant neoplasm of breast [Z12.31] Start: 09-21-2022 End: 09-21-2022 Patient encounter procedure Shar Enamorado MD Work Phone: OB/Gynecology Comment on above: Encounter for gynecological examination without abnormal finding (Primary Dx); Encounter for screening mammogram for malignant neoplasm of breast; Vaginal itching Start: 09-21-2022 End: 09-21-2022 Patient encounter status Shar Enamorado MD Work Phone: [facility] Start: 08-21-2022 End: 08-21-2022 Patient encounter procedure Trang Lilly APRN.DIE TECHNICIAN Work Phone: [facility] Comment on above: Rash (Primary Dx) Start: 05-05-2022 End: 05-05-2022 Patient encounter procedure Micah High MD Work Phone: Internal Medicine [place] Comment on above: Sleep apnea, unspecified type (Primary D x); Mixed hyperlipidemia; Essential hypertension; Need for vaccination; Mild episode of recurrent major depressive disorder (HCC) Start: 04-14-2022 Refill Ladi Almanza APRN.CNP Work Phone: [facility] [place] Comment on above: Refill Request Start: 03-16-2022 ambulatory Micah High MD Work Phone: Internal Medicine [place] Comment on above: Sleep Apnea Test Start: 02-18-2022 End: 02-18-2022 Subsequent hospital visit by physician Screen Mammo [facility] Comment on above: Canceled (CC cx: Equipment, Prep, Approp riateness) Start: 02-15-2022 End: 02-15-2022 Refill Micah High MD Work Phone: Internal Medicine [place] Comment on above: Refill Request Start: 02-03-2022 ambulatory Micah High MD Work Phone: [facility] [place] Comment on above: Sleep Apnea Test Start: 01-21-2022 End: 01-21-2022 Patient encounter procedure Marylu Banks MD Work Phone: Otolaryngology Comment on above: Nasal stenosis (Primary Dx); Deviated nasal septum Start: 01-13-2022 [facility]ing [facility] Work Phone: Neurology Start: 01-05-2022 End: 01-05-2022 Patient encounter procedure Micah High MD Work Phone: Internal Medicine [place] Comment on above: Sleep apnea, unspecified type (Primary D x); Stuffy nose; Essential hypertension Start: 12-28-2021 ambulatory Micah High MD Work Phone: [facility] [place] Comment on above: Sleep Apnea Start: 12-28-2021 End: 12-28-2021 Patient encounter procedure Batsheva Garcia MD Work Phone: General Surgery Comment on above: Status post skin and subcutaneous tissue surgery (Primary Dx) Start: 12-23-2021 End: 12-23-2021 Patient encounter procedure Batsheva Garcia MD Work Phone: General Surgery Comment on above: Infected cyst of skin (Primary Dx) Start: 12-14-2021 End: 12-14-2021 Patient encounter procedure Batsheva Garcia MD Work Phone: General Surgery Comment on above: Skin lesion; Sebaceous cyst; Pure hypercholesterolemia Start: 12-08-2021 End: 12-08-2021 Subsequent hospital visit by physician [facility] Work Phone: Radiology Comment on above: Abnormal screening mammogram [R92.8] Start: 12-05-2021 End: 12-05-2021 Patient encounter procedure Micah High MD Work Phone: Internal Medicine [place] Comment on above: Pure hypercholesterolemia with target lo w density lipoprotein (LDL) cholesterol less than 130 mg/dL (Primary Dx); Skin lesion; Sebaceous cyst; Pure hypercholesterolemia; Mild episode of recurrent major depressive disorder (HCC) Start: 10-28-2021 End: 10-28-2021 Patient encounter procedure Micah High MD Work Phone: Internal Medicine [place] Comment on above: Medicare annual wellness visit, subseque nt (Primary Dx); Mixed hyperlipidemia; Anxiety; Claustrophobia; Essential hypertension Start: 10-26-2021 Telephone encounter Micah High MD Work Phone: Internal Medicine [place] Comment on above: Patient Update Start: 10-09-2021 Refill Ladi Almanza APRN.CNP Work Phone: [facility] [place] Comment on above: Refill Request Start: 09-23-2021 ambulatory Belen Melvin MA [facility] Comment on above: Population Health Navigation Outreach ([facility]) Start: 09-18-2021 End: 09-18-2021 Patient encounter procedure Shar Enamorado MD Work Phone: OB/Gynecology Comment on above: Encounter for gynecological examination without abnormal finding (Primary Dx); Encounter for screening mammogram for malignant neoplasm of breast; Encounter for screening for malignant neoplasm of cervix Start: 09-18-2021 End: 09-18-2021 Patient encounter status Shar Enamorado MD Work Phone: OB/Gynecology Start: 06-03-2021 End: 06-03-2021 Subsequent hospital visit by physician [facility] Work Phone: Radiology Comment on above: Abnormal screening mammogram [R92.8] Procedures Date Procedure Procedure Detail Performing Clinician Start: 12-06-2024 Radiologic exam chest [address] Micah High MD Work Phone: Start: 12-06-2024 SARS-CoV-2, Influenza & RSV (PCR) Dr. Micah High MD Work Phone: Start: 06-08-2024 Lipid 1996 panel - Serum or Plasma Micah High MD Work Phone: Start: 05-10-2024 CT of head without contrast Dr. Micah High MD Work Phone: Start: 10-17-2023 Screening digital breast tomosynthesis bi Shar Enamorado MD Work Phone: Start: 08-19-2023 Radiologic exam chest 2 views Josafat Reynolds CORPORATE CONTROLLER.DIE TECHNICIAN Work Phone: Start: 08-19-2023 STREP A MOLECULAR (POC) Gerri Enamorado CORPORATE CONTROLLER.DIE TECHNICIAN Work Phone: Start: 07-23-2023 Lipid 1996 panel - Serum or Plasma Ladi Almanza CORPORATE CONTROLLER.DIE TECHNICIAN Work Phone: Start: 04-26-2023 Radiologic exam chest 2 views Nilda Walton CORPORATE CONTROLLER.DIE TECHNICIAN Work Phone: Start: 04-03-2023 STREP A MOLECULAR (POC) Rosa MAYBERRY RN.DIE TECHNICIAN Work Phone: Start: 03-15-2023 Radex shoulder complete minimum 2 views Leatha Rico CORPORATE CONTROLLER.DIE TECHNICIAN Work Phone: Start: 10-11-2022 End: 10-11-2022 Mammography Shar Enamorado MD Work Phone: Start: 06-22-2022 Lipid 1996 panel - Serum or Plasma Eyal Guerrier Jr., MD Work Phone: Start: 02-15-2022 Ct maxillofacial w/o contrast material Marylu Banks MD Work Phone: Start: 12-23-2021 SURGICAL PATHOLOGY Batsheva Garcia MD Work Phone: Start: 06-03-2021 Us breast uni real time with image limited Shar Enamorado MD Work Phone: Start: 06-03-2021 DWAIN DIAG W [place] RT Shar Enamorado MD Work Phone: Start: 05-04-2021 Mammography Us 1 Work Phone: Start: 06-16-2017 Colonoscopy Us 1 Work Phone: H/O: surgery Status post skin and subcutaneous tissue surgery Batsheva Garcia MD Work Phone: Plan of Treatment Date Care Activity Detail Author Start: 02-24-2030 Urine microalbumin profile [facility] Start: 06-08-2029 Lipid panel Lipid Screening [facility] Start: 07-22-2028 Lipid panel Lipid Screening [facility] Start: 06-23-2027 Lipid 1996 panel - Serum or Plasma Lipid Screening [facility] Start: 06-23-2027 Lipid panel Lipid Screening [facility] Start: 06-23-2027 LIPID SCREEN LIPID SCREEN [facility] Start: 06-17-2027 Colonoscopy COLONOSCOPY [facility] Start: 06-17-2027 COLORECTAL CANCER SCREENING COLORECTAL CANCER SCREENING [facility] Start: 06-17-2027 Screening for malignant neoplasm of colon [facility] Start: 06-09-2027 Diabetes Screening Diabetes Screening [facility] Start: 10-30-2026 LIPID SCREEN LIPID SCREEN [facility] Start: 04-26-2026 Diabetes Screening Diabetes Screening [facility] Start: 11-10-2025 DIABETES SCREEN DIABETES SCREEN [facility] Start: 11-10-2025 Diabetes Screening Diabetes Screening [facility] Start: 10-19-2025 Screening for malignant neoplasm of breast Mammogram Screening [facility] Start: 08-30-2025 End: 08-30-2025 Patient encounter procedure 08/30/2025 10:00 AM EDT Office Visit Internal Medicine [place] [address] [place] [address] Micah High MD [address] [place] [address] Yearly [facility] [place] Comment on above: Yearly Start: 08-21-2025 Annual PCP Team Chronic Disease Visit Annual PCP Team Chronic Disease Visit [facility] Start: 06-05-2025 Annual PCP Team Chronic Disease Visit Annual PCP Team Chronic Disease Visit [facility] Start: 02-20-2025 Annual PCP Team Chronic Disease Visit Annual PCP Team Chronic Disease Visit [facility] Start: 02-15-2025 LIPID SCREEN LIPID SCREEN [facility] Start: 12-27-2024 BP Controlled (<130/80) BP Controlled (<130/80) [facility] Start: 12-21-2024 End: 12-21-2024 Patient encounter procedure 12/21/2024 10:00 AM EDT Office Visit Internal Medicine [place] [address] [place] [address] Micah High MD [address] [place] [address] medicare wellness [facility] [place] Comment on above: medicare wellness Start: 12-06-2024 [facility] Start: 12-06-2024 [facility] Start: 12-06-2024 End: 12-06-2024 Patient encounter procedure 12/06/2024 3:00 PM EDT Office Visit Neurology [address] [place] [address] Ryann Adan APRN.DIE TECHNICIAN [address] [place] [address] Hearing Neurology Comment on above: Hearing Start: 11-30-2024 End: 11-30-2024 ambulatory 11/30/2024 1:00 PM EDT OT/PT/Speech Visit [facility] [address] [place] [address] Darryl Cardenas PT S46.812D (ICD-10-CM) - Strain of left levator scapulae muscle, subsequent encounter [facility] Comment on above: S46.812D (ICD-10-CM) - Strain of left le vator scapulae muscle, subsequent encounter Start: 11-28-2024 Annual PCP Team Chronic Disease Visit Annual PCP Team Chronic Disease Visit [facility] Start: 11-28-2024 BP Controlled (<130/80) BP Controlled (<130/80) [facility] Start: 11-05-2024 Influenza vaccination Influenza Vaccine (#1) [facility] Start: 11-02-2024 End: 11-02-2024 ambulatory 11/02/2024 1:45 PM EDT OT/PT/Speech Visit [facility] [address] [place] [address] Darryl Cardenas, PT S46.812D (ICD-10-CM) - Strain of left levator scapulae muscle, subsequent encounter [facility] Comment on above: S46.812D (ICD-10-CM) - Strain of left le vator scapulae muscle, subsequent encounter Start: 10-30-2024 DIABETES SCREEN DIABETES SCREEN [facility] Start: 10-19-2024 End: 10-19-2024 Patient encounter procedure 10/19/2024 12:30 PM EDT Appointment Mammogram [address] [place] [address] Breast cancer screening by mammogram [Z12.31] Mammogram Comment on above: Breast cancer screening by mammogram [Z1 2.31] Start: 10-16-2024 Screening for malignant neoplasm of breast Mammogram Screening [facility] Start: 10-15-2024 End: 10-15-2024 ambulatory 10/15/2024 9:45 AM EDT OT/PT/Speech Visit [facility] [address] [place] [address] Darryl Cardenas, PT S46.812D (ICD-10-CM) - Strain of left levator scapulae muscle, subsequent encounter [facility] Comment on above: S46.812D (ICD-10-CM) - Strain of left le vator scapulae muscle, subsequent encounter Start: 09-22-2024 BP Controlled (<130/80) BP Controlled (<130/80) [facility] Start: 09-13-2024 End: 09-13-2024 ambulatory 09/13/2024 9:15 AM EDT OT/PT/Speech Visit [facility] [address] [place] [address] Darryl Cardenas, PT S46.812D (ICD-10-CM) - Strain of left levator scapulae muscle, subsequent encounter [facility] Comment on above: S46.812D (ICD-10-CM) - Strain of left le vator scapulae muscle, subsequent encounter Start: 08-31-2024 End: 08-31-2024 ambulatory 08/31/2024 8:15 AM EDT OT/PT/Speech Visit [facility] [address] [place] [address] Darryl Cardenas, PT S46.812D (ICD-10-CM) - Strain of left levator scapulae muscle, subsequent encounter [facility] Comment on above: S46.812D (ICD-10-CM) - Strain of left le vator scapulae muscle, subsequent encounter Start: 08-29-2024 End: 08-29-2024 Patient encounter procedure 08/29/2024 1:30 PM EDT Office Visit Geriatrics [address] [place] [address] Micah High MD [address] [place] [address] Concern about memory [Z71.1]; Family history of Alzheimer disease [Z82.0] Geriatrics Comment on above: Concern about memory [Z71.1]; Family his tory of Alzheimer disease [Z82.0] Start: 08-21-2024 End: 08-21-2024 Patient encounter procedure 08/21/2024 1:40 PM EDT Office Visit Internal Medicine [place] [address] [place] [address] Micah High MD [address] [place] [address] 6 mo follow up [facility] [place] Comment on above: 6 mo follow up Start: 08-18-2024 BP Controlled (<130/80) BP Controlled (<130/80) [facility] Start: 08-08-2024 Covid-19 Vaccine ( season) Covid-19 Vaccine () [facility] Start: 08-02-2024 End: 08-02-2024 Patient encounter procedure 08/02/2024 10:30 AM EDT Office Visit Geriatrics [address] [place] [address] Micah High MD [address] [place] [address] Concern about memory [Z71.1]; Family history of Alzheimer disease [Z82.0] Geriatrics Comment on above: Concern about memory [Z71.1]; Family his tory of Alzheimer disease [Z82.0] Start: 07-24-2024 Annual PCP Team Chronic Disease Visit Annual PCP Team Chronic Disease Visit [facility] Start: 07-24-2024 BP Controlled (<130/80) BP Controlled (<130/80) [facility] Start: 07-03-2024 End: 07-03-2024 ambulatory 07/03/2024 10:45 AM EDT OT/PT/Speech Visit [facility] [address] [place] [address] Darryl Cardenas, PT S46.812D (ICD-10-CM) - Strain of left levator scapulae muscle, subsequent encounter [facility] Comment on above: S46.812D (ICD-10-CM) - Strain of left le vator scapulae muscle, subsequent encounter Start: 06-26-2024 End: 06-26-2024 ambulatory 06/26/2024 9:30 AM EDT OT/PT/Speech Visit [facility] [address] [place] [address] Gemma Olmedo, [employer]KE [employer]ER [address] [place] [address] S46.812D (ICD-10-CM) - Strain of left levator scapulae muscle, subsequent encounter [facility] Comment on above: S46.812D (ICD-10-CM) - Strain of left le vator scapulae muscle, subsequent encounter Start: 06-19-2024 End: 06-19-2024 ambulatory 06/19/2024 11:00 AM EDT OT/PT/Speech Visit [facility] [address] [place] [address] Gissell Gemma, [employer] WHE[employer]ER [address] [place] [address] S46.812D (ICD-10-CM) - Strain of left levator scapulae muscle, subsequent encounter [facility] Comment on above: S46.812D (ICD-10-CM) - Strain of left le vator scapulae muscle, subsequent encounter Start: 06-11-2024 End: 06-11-2024 ambulatory 06/11/2024 11:30 AM EDT OT/PT/Speech Visit [facility] [address] [facility] [place] [address] Darryl Cardenas, PT S46.812D (ICD-10-CM) - Strain of left levator scapulae muscle, subsequent encounter [facility] Comment on above: S46.812D (ICD-10-CM) - Strain of left le vator scapulae muscle, subsequent encounter Start: 06-05-2024 End: 09-04-2024 CBC W Auto Differential panel - Blood COMPLETE BLOOD COUNT AND DIFFERENTIAL Lab Routine Essential hypertension Expected: 06/05/2024, Expires: 09/04/2024 [facility] Comment on above: Expected: 06/05/2024, Expires: Start: 06-05-2024 End: 09-04-2024 Comprehensive metabolic 2000 panel - Serum or Plasma COMPREHENSIVE METABOLIC PANEL Lab Routine Essential hypertension Expected: 06/05/2024, Expires: 09/04/2024 [facility] Comment on above: Expected: 06/05/2024, Expires: Start: 06-05-2024 End: 09-04-2024 Lipid 1996 panel - Serum or Plasma LIPID PANEL, FASTING Lab Routine Mixed hyperlipidemia Expected: 06/05/2024, Expires: 09/04/2024 [facility] Work Phone: Comment on above: Expected: 06/05/2024, Expires: Start: 06-04-2024 End: 06-04-2024 ambulatory 06/04/2024 10:45 AM EDT OT/PT/Speech Visit [facility] [address] [place] [address] Darryl Cardenas, PT Strain of left levator scapulae muscle, subsequent encounter [facility] Comment on above: Strain of left levator scapulae muscle, subsequent encounter Start: 05-10-2024 [facility] Start: 05-07-2024 End: 05-07-2024 ambulatory 05/07/2024 9:45 AM EST OT/PT/Speech Visit [facility] [address] [place] [address] Darryl Cardenas, PT Dx: Cervicalgia [M54.2 (ICD-10-CM)]; Strain of left levator scapulae muscle, initial encounter [S46.812A (ICD-10-CM)]; Acute pain of left knee [M25.562 (ICD-10-CM)] [facility] Comment on above: Dx: Cervicalgia [M54.2 (ICD-10-CM)]; Str ain of left levator scapulae muscle, initial encounter [S46.812A (ICD-10-CM)]; Acute pain of left knee [M25.562 (ICD-10-CM)] Start: 05-01-2024 End: 05-01-2024 ambulatory 05/01/2024 10:45 AM EST OT/PT/Speech Visit [facility] [address] [place] [address] Darryl Cardenas, PT Dx: Cervicalgia [M54.2 (ICD-10-CM)]; Strain of left levator scapulae muscle, initial encounter [S46.812A (ICD-10-CM)]; Acute pain of left knee [M25.562 (ICD-10-CM)] [facility] Comment on above: Dx: Cervicalgia [M54.2 (ICD-10-CM)]; Str ain of left levator scapulae muscle, initial encounter [S46.812A (ICD-10-CM)]; Acute pain of left knee [M25.562 (ICD-10-CM)] Start: 04-26-2024 Annual PCP Team Chronic Disease Visit Annual PCP Team Chronic Disease Visit [facility] Start: 04-26-2024 BP Controlled (<130/80) BP Controlled (<130/80) [facility] Start: 04-25-2024 End: 04-25-2024 ambulatory 04/25/2024 10:30 AM EST OT/PT/Speech Visit [facility] [address] [place], [place] [address] Darryl Cardenas, PT Dx: Cervicalgia [M54.2 (ICD-10-CM)]; Strain of left levator scapulae muscle, initial encounter [S46.812A (ICD-10-CM)]; Acute pain of left knee [M25.562 (ICD-10-CM)] [facility] Comment on above: Dx: Cervicalgia [M54.2 (ICD-10-CM)]; Str ain of left levator scapulae muscle, initial encounter [S46.812A (ICD-10-CM)]; Acute pain of left knee [M25.562 (ICD-10-CM)] Start: 04-18-2024 End: 04-18-2024 ambulatory 04/18/2024 10:30 AM EST OT/PT/Speech Visit [facility] [address] [place], [place] [address] Darryl Cardenas, PT Dx: Cervicalgia [M54.2 (ICD-10-CM)]; Strain of left levator scapulae muscle, initial encounter [S46.812A (ICD-10-CM)]; Acute pain of left knee [M25.562 (ICD-10-CM)] [facility] Comment on above: Dx: Cervicalgia [M54.2 (ICD-10-CM)]; Str ain of left levator scapulae muscle, initial encounter [S46.812A (ICD-10-CM)]; Acute pain of left knee [M25.562 (ICD-10-CM)] Start: 04-12-2024 End: 04-12-2024 ambulatory 04/12/2024 10:45 AM EST OT/PT/Speech Visit [facility] [address] [place] [address] Darryl Cardenas, PT S46.812D (ICD-10-CM) - Strain of left levator scapulae muscle, subsequent encounter [facility] Comment on above: S46.812D (ICD-10-CM) - Strain of left le vator scapulae muscle, subsequent encounter Start: 04-03-2024 BP Controlled (<130/80) BP Controlled (<130/80) [facility] Start: 03-27-2024 End: 03-27-2024 ambulatory 03/27/2024 9:00 AM EST OT/PT/Speech Visit [facility] [address] [place] [address] Liza [place], PT N39.3 [facility] Comment on above: N39.3 Start: 03-22-2024 End: 03-22-2024 ambulatory 03/22/2024 12:45 PM EST OT/PT/Speech Visit [facility] [address] [place] [address] Liza [place], PT N39.3 [facility] Comment on above: N39.3 Start: 03-08-2024 End: 03-08-2024 ambulatory 03/08/2024 1:15 PM EST OT/PT/Speech Visit [facility] [address] [place] [address] Darryl Cardenas, PT S46.812D (ICD-10-CM) - Strain of left levator scapulae muscle, subsequent encounter [facility] Comment on above: S46.812D (ICD-10-CM) - Strain of left le vator scapulae muscle, subsequent encounter Start: 03-07-2024 Advance Directive Discussion Advance Directive Discussion [facility] Start: 03-07-2024 Medicare Advantage Annual Wellness Visit Medicare Advantage Annual Wellness Visit [facility] Start: 03-05-2024 End: 03-05-2024 Manual pelvic examination 03/05/2024 10:30 AM EST OT/PT/Speech Visit [facility] [address] [place] [address] Liza [place], PT pelvic floor [facility] Comment on above: pelvic floor Start: 03-01-2024 End: 03-01-2024 Manual pelvic examination 03/01/2024 10:30 AM EST OT/PT/Speech Visit [facility] [address] [place] [address] Liza [place], PT pelvic floor [facility] Comment on above: pelvic floor Start: 02-23-2024 End: 02-23-2024 Manual pelvic examination 02/23/2024 10:30 AM EST OT/PT/Speech Visit [facility] [address] [place] [address] Liza [place], PT pelvic floor [facility] Comment on above: pelvic floor Start: 02-22-2024 End: 02-22-2024 ambulatory 02/22/2024 1:00 PM EST OT/PT/Speech Visit [facility] [address] [place] [address] Darryl Cardenas, PT Dx: Cervicalgia [M54.2 (ICD-10-CM)]; Strain of left levator scapulae muscle, initial encounter [S46.812A (ICD-10-CM)]; Acute pain of left knee [M25.562 (ICD-10-CM)] [facility] Comment on above: Dx: Cervicalgia [M54.2 (ICD-10-CM)]; Str ain of left levator scapulae muscle, initial encounter [S46.812A (ICD-10-CM)]; Acute pain of left knee [M25.562 (ICD-10-CM)] Start: 02-21-2024 End: 02-21-2024 Patient encounter procedure 02/21/2024 1:00 PM EST Office Visit Internal [facility] [place] [address] [place] [address] Micah High MD [address] [place] [address] Medicare wellness [facility] [place] Comment on above: Medicare wellness Start: 02-17-2024 End: 02-17-2024 Documentation procedure 02/17/2024 Plan of Care Documentation [facility] [address] [place] [address] [facility] Start: 02-15-2024 End: 02-15-2024 ambulatory 02/15/2024 1:00 PM EST OT/PT/Speech Visit [facility] [address] [place] [address] Darryl Cardenas PT Dx: Cervicalgia [M54.2 (ICD-10-CM)]; Strain of left levator scapulae muscle, initial encounter [S46.812A (ICD-10-CM)]; Acute pain of left knee [M25.562 (ICD-10-CM)] [facility] Comment on above: Dx: Cervicalgia [M54.2 (ICD-10-CM)]; Str ain of left levator scapulae muscle, initial encounter [S46.812A (ICD-10-CM)]; Acute pain of left knee [M25.562 (ICD-10-CM)] Start: 02-07-2024 End: 02-07-2024 ambulatory 02/07/2024 11:00 AM EST OT/PT/Speech Visit [facility] [address] [place], [place] [id number] Gemma Olmedo PTA [address] [place] [address] Dx: Cervicalgia [M54.2 (ICD-10-CM)]; Strain of left levator scapulae muscle, initial encounter [S46.812A (ICD-10-CM)]; Acute pain of left knee [M25.562 (ICD-10-CM)] [facility] Comment on above: Dx: Cervicalgia [M54.2 (ICD-10-CM)]; Str ain of left levator scapulae muscle, initial encounter [S46.812A (ICD-10-CM)]; Acute pain of left knee [M25.562 (ICD-10-CM)] Start: 01-31-2024 End: 01-31-2024 Manual pelvic examination 01/31/2024 10:30 AM EST OT/PT/Speech Visit [facility] [address] [facility] [address] [place], [place] [id number] Liza [place], PT pelvic floor [facility] Comment on above: pelvic floor Start: 01-30-2024 End: 01-30-2024 Patient encounter procedure 01/30/2024 10:00 AM EST Office Visit [facility] [place] [address] [place], [place] [id number] Micah High MD [address] [place] [address] medicare wellness [facility] [place] Comment on above: medicare wellness Start: 01-26-2024 End: 01-26-2024 ambulatory 01/26/2024 6:00 PM EST OT/PT/Speech Visit [facility] [address] [place], [place] [id number] Leonard Parmar, PT, DPT Dx: Cervicalgia [M54.2 (ICD-10-CM)]; Strain of left levator scapulae muscle, initial encounter [S46.812A (ICD-10-CM)]; Acute pain of left knee [M25.562 (ICD-10-CM)] [facility] Comment on above: Dx: Cervicalgia [M54.2 (ICD-10-CM)]; Str ain of left levator scapulae muscle, initial encounter [S46.812A (ICD-10-CM)]; Acute pain of left knee [M25.562 (ICD-10-CM)] Start: 01-26-2024 End: 01-26-2024 Patient encounter procedure 01/26/2024 10:00 AM EST Office Visit [facility] [place] [address] [place] [address] Micah High MD [address] [place] [address] medicare wellness [facility] [place] Comment on above: medicare wellness Start: 01-17-2024 End: 01-17-2024 ambulatory 01/17/2024 12:45 PM EST OT/PT/Speech Visit [facility] [address] [place] [address] Leonard Parmar, PT, DPT S46.812D (ICD-10-CM) - Strain of left levator scapulae muscle, subsequent encounter [facility] Comment on above: S46.812D (ICD-10-CM) - Strain of left le vator scapulae muscle, subsequent encounter Start: 01-10-2024 End: 01-10-2024 ambulatory 01/10/2024 9:30 AM EST OT/PT/Speech Visit [facility] [address] [place] [address] Gemma Olmedo, [employer] [address] [place] [address] S46.812D (ICD-10-CM) - Strain of left levator scapulae muscle, subsequent encounter [facility] Comment on above: S46.812D (ICD-10-CM) - Strain of left le vator scapulae muscle, subsequent encounter Start: 01-05-2024 End: 01-05-2024 ambulatory 01/05/2024 11:45 AM EDT OT/PT/Speech Visit [facility] [address] [place] [address] Gemma Olmedo, [employer] [address] [place] [address] S46.812D (ICD-10-CM) - Strain of left levator scapulae muscle, subsequent encounter [facility] Comment on above: S46.812D (ICD-10-CM) - Strain of left le vator scapulae muscle, subsequent encounter Start: 12-29-2023 End: 12-29-2023 ambulatory 12/29/2023 10:00 AM EDT OT/PT/Speech Visit [facility] [address] [place] [address] Darryl Cardenas, PT S46.812D (ICD-10-CM) - Strain of left levator scapulae muscle, subsequent encounter [facility] Comment on above: S46.812D (ICD-10-CM) - Strain of left le vator scapulae muscle, subsequent encounter Start: 12-23-2023 Annual PCP Team Chronic Disease Visit Annual PCP Team Chronic Disease Visit [facility] Start: 12-23-2023 BP Controlled (<130/80) BP Controlled (<130/80) [facility] Start: 12-20-2023 End: 12-20-2023 Manual pelvic examination 12/20/2023 10:30 AM EDT OT/PT/Speech Visit [facility] [address] [place] [address] Liza [place], PT pelvic floor [facility] Comment on above: pelvic floor Start: 12-19-2023 End: 12-19-2023 ambulatory 12/19/2023 11:30 AM EDT OT/PT/Speech Visit [facility] [address] [place] [address] Darryl Cardenas, PT Strain of left levator scapulae muscle, subsequent encounter [S46.812D] [facility] Comment on above: Strain of left levator scapulae muscle, subsequent encounter [S46.812D] Start: 12-12-2023 End: 12-12-2023 Manual pelvic examination 12/12/2023 10:30 AM EDT OT/PT/Speech Visit [facility] [address] [place] [address] Liza [place], PT pelvic floor [facility] Comment on above: pelvic floor Start: 12-06-2023 End: 12-06-2023 Manual pelvic examination 12/06/2023 1:30 PM EDT OT/PT/Speech Visit [facility] [address] [place] [address] Liza [place], PT pelvic floor [facility] Comment on above: pelvic floor Start: 12-02-2023 End: 12-02-2023 Manual pelvic examination 12/02/2023 10:30 AM EDT OT/PT/Speech Visit [facility] [address] [place] [address] Liza Patricio, PT pelvic floor [facility] Comment on above: pelvic floor Start: 11-21-2023 End: 11-21-2023 Manual pelvic examination 11/21/2023 3:00 PM EDT OT/PT/Speech Visit [facility] [address] [place] [address] Liza Patricio, PT pelvic floor [facility] Comment on above: pelvic floor Start: 11-11-2023 ANNUAL PCP TEAM CHRONIC DISEASE VISIT ANNUAL PCP TEAM CHRONIC DISEASE VISIT [facility] Start: 11-11-2023 COVID-19 VACCINE (6 - Moderna series) COVID-19 VACCINE (6 - Moderna series) [facility] Comment on above: Postponed from 03/21/2022 (Declined at t his time) Start: 11-10-2023 End: 11-10-2023 Manual pelvic examination 11/10/2023 10:30 AM EDT OT/PT/Speech Visit [facility] [address] [place] [address] Liza Patricio, PT pelvic floor [facility] Comment on above: pelvic floor Start: 11-06-2023 Covid-19 Vaccine ( season) Covid-19 Vaccine ( season) [facility] Start: 11-06-2023 Covid-19 Vaccine () Covid-19 Vaccine () [facility] Start: 11-06-2023 Influenza vaccination Influenza Vaccine (#1) [facility] Start: 11-01-2023 End: 11-01-2023 ambulatory 11/01/2023 10:30 AM EDT OT/PT/Speech Visit [facility] [address] [place] [place] [address] Liza Patricio M, PT MARINE (stress urinary incontinence, female) [N39.3] [facility] Comment on above: MARINE (stress urinary incontinence, female ) [N39.3] Start: 10-12-2023 Mammography [facility] Start: 10-12-2023 Screening for malignant neoplasm of breast Mammogram Screening [facility] Start: 10-12-2023 End: 10-12-2023 Patient encounter procedure 10/12/2023 10:50 AM EDT Appointment Mammogram [address] [place], [place] [id number] Encounter for gynecological examination (general) (routine) without abnormal findings [Z01.419] Mammogram Comment on above: Encounter for gynecological examination (general) (routine) without abnormal findings [Z01.419] Start: 09-26-2023 End: 09-26-2023 Patient encounter procedure 09/26/2023 11:30 AM EDT Office Visit Neurology [address] [place], [place] [id number] Ryann Adan APRN.DIE TECHNICIAN [address] [place] [address] 6 mo follow up Neurology Comment on above: 6 mo follow up Start: 09-23-2023 End: 09-23-2023 Patient encounter procedure 09/23/2023 2:00 PM EDT Office Visit OB/Gynecology [address] [place], [place] [id number] Shar Enamorado MD [address] [place], [place] [address] Annual OB/Gynecology Comment on above: Annual Start: 09-22-2023 BP CONTROLLED (<130/80) BP CONTROLLED (<130/80) [facility] Start: 09-04-2023 Influenza vaccination [facility] Comment on above: Postponed from 11/05/2022 (Declined at t his time) Start: 08-22-2023 BP CONTROLLED (<130/80) BP CONTROLLED (<130/80) [facility] Start: 07-25-2023 End: 07-25-2023 Patient encounter procedure 07/25/2023 9:40 AM EDT Office Visit Internal Medicine Patricia [address] [place] [address] Ladi Almanza APRN.DIE TECHNICIAN [address] [place] [address] 6 month follow up Internal Medicine Patricia Comment on above: 6 month follow up Start: 07-12-2023 End: 10-11-2023 Lipid 1996 panel - Serum or Plasma LIPID PANEL BASIC Lab Routine Mixed hyperlipidemia Expected: 07/12/2023, Expires: 10/11/2023 [facility] Work Phone: Comment on above: Expected: 07/12/2023, Expires: 4 Start: 05-06-2023 ANNUAL PCP TEAM CHRONIC DISEASE VISIT ANNUAL PCP TEAM CHRONIC DISEASE VISIT [facility] Start: 04-26-2023 End: 07-26-2023 Basic metabolic 2000 panel - Serum or Plasma [facility] Work Phone: Comment on above: Expected: 04/26/2023, Expires: 4 Start: 04-24-2023 Covid-19 Vaccine () Covid-19 Vaccine () [facility] Start: 03-07-2023 Advance Directive Discussion Advance Directive Discussion [facility] Start: 02-15-2023 DIABETES SCREEN DIABETES SCREEN [facility] Start: 01-05-2023 ANNUAL PCP TEAM CHRONIC DISEASE VISIT ANNUAL PCP TEAM CHRONIC DISEASE VISIT [facility] Start: 01-05-2023 BP CONTROLLED (<130/80) BP CONTROLLED (<130/80) [facility] Start: 12-05-2022 ANNUAL PCP TEAM CHRONIC DISEASE VISIT ANNUAL PCP TEAM CHRONIC DISEASE VISIT [facility] Start: 12-05-2022 BP CONTROLLED (<130/80) BP CONTROLLED (<130/80) [facility] Start: 11-05-2022 Influenza vaccination INFLUENZA (#1) [facility] Start: 10-28-2022 ANNUAL PCP TEAM CHRONIC DISEASE VISIT ANNUAL PCP TEAM CHRONIC DISEASE VISIT [facility] Start: 10-28-2022 BP CONTROLLED (<130/80) BP CONTROLLED (<130/80) [facility] Start: 10-26-2022 End: 12-26-2022 Basic metabolic 2000 panel - Serum or Plasma BASIC METABOLIC PNL Lab Routine Essential hypertension Expected: 10/26/2022, Expires: 12/26/2022 [facility] Work Phone: Comment on above: Expected: 10/26/2022, Expires: 3 Start: 05-05-2022 End: 07-05-2022 Lipid 1996 panel - Serum or Plasma LIPID PANEL BASIC Lab Routine Mixed hyperlipidemia Expected: 05/05/2022, Expires: 07/05/2022 [facility] Work Phone: Comment on above: Expected: 05/05/2022, Expires: 3 Start: 05-04-2022 Mammography MAMMOGRAM [facility] Start: 03-21-2022 COVID-19 VACCINE (6 - Moderna series) COVID-19 VACCINE (6 - Moderna series) [facility] Start: 03-07-2022 ADVANCE DIRECTIVE DISCUSSION ADVANCE DIRECTIVE DISCUSSION [facility] Start: 03-07-2022 End: 05-07-2022 Lipid 1996 panel - Serum or Plasma LIPID PANEL BASIC Lab Routine Pure hypercholesterolemia Expected: 03/07/2022, Expires: 05/07/2022 [facility] Work Phone: Comment on above: Expected: 03/07/2022, Expires: 3 Start: 11-05-2021 Influenza vaccination INFLUENZA (#1) [facility] Start: 10-28-2021 End: 12-28-2021 CBC W Auto Differential panel - Blood CBC + DIFF Lab Routine Essential hypertension Expected: 10/28/2021, Expires: 12/28/2021 [facility] Work Phone: Comment on above: Expected: 10/28/2021, Expires: 2 Start: 10-28-2021 End: 12-28-2021 Comprehensive metabolic 2000 panel - Serum or Plasma COMP METABOLIC PANEL Lab Routine Mixed hyperlipidemia Expected: 10/28/2021, Expires: 12/28/2021 [facility] Work Phone: Comment on above: Expected: 10/28/2021, Expires: 2 Start: 10-28-2021 End: 12-28-2021 Lipid 1996 panel - Serum or Plasma LIPID PANEL BASIC Lab Routine Mixed hyperlipidemia Expected: 10/28/2021, Expires: 12/28/2021 [facility] Work Phone: Comment on above: Expected: 10/28/2021, Expires: 2 Start: 03-07-2021 ADVANCE DIRECTIVE DISCUSSION ADVANCE DIRECTIVE DISCUSSION [facility] Start: 10-12-2020 PNEUMOCOCCAL: 65+ (2 - PPSV23 if available, else PCV20) PNEUMOCOCCAL: 65+ (2 - PPSV23 if available, else PCV20) [facility] Start: 10-12-2020 PNEUMOCOCCAL: 65+ (2 - PPSV23 or PCV20) PNEUMOCOCCAL: 65+ (2 - PPSV23 or PCV20) [facility] Start: 07-20-2019 PNEUMOVAX AGE 65 AND OVER WITH 5YR LOOKBACK (#1) PNEUMOVAX AGE 65 AND OVER WITH 5YR LOOKBACK (#1) [facility] Start: 2014 RSV Vaccine (1 - 1-dose 60+ series) RSV Vaccine (1 - 1-dose 60+ series) [facility] Start: 06-21-2006 FECAL OCCULT BLOOD FECAL OCCULT BLOOD [facility] Start: 06-21-2006 Screening for malignant neoplasm of colon Fecal Occult Blood [facility] Start: 07-20-1999 COLOGUARD (FIT-DNA) COLOGUARD (FIT-DNA) [facility] Start: 07-20-[address] COLONOGRAPHY [facility] Start: 07-20-1999 Screening for malignant neoplasm of colon [facility] Start: 07-20-1999 SIGMOIDOSCOPY SIGMOIDOSCOPY [facility] Start: 1972 BP CONTROLLED (<130/80) BP CONTROLLED (<130/80) [facility] End: 02-20-2023 Ct maxillofacial w/o contrast material CT SINUS WO IVCON Radiology Routine 1 Occurrences starting 01/21/2022 until 02/20/2023 [facility] Work Phone: Comment on above: 1 Occurrences starting 01/21/2022 until 02/20/2023 End: 10-22-2024 DBT Breast - bilateral screening DWAIN SCREENING [place] Radiology Routine Encounter for gynecological examination (general) (routine) without abnormal findings Encounter for screening mammogram for breast cancer 1 Occurrences starting 09/23/2023 until 10/22/2024 [facility] [employer] Work Phone: Comment on above: 1 Occurrences starting 09/23/2023 until 10/22/2024 End: 09-20-2025 DBT Breast - bilateral screening DWAIN SCREENING [place] Radiology Routine Breast cancer screening by mammogram 1 Occurrences starting 08/21/2024 until 09/20/2025 [facility] Work Phone: Comment on above: 1 Occurrences starting 08/21/2024 until 09/20/2025 DBT Breast - bilater al screening DWAIN SCREENING [place] Radiology Routine Breast cancer screening by mammogram 10/19/2024 12:44 PM EDT [facility] [employer] Work Phone: End: 01-05-2023 HOME SLEEP APNEA TEST (HSAT) HOME SLEEP APNEA TEST (HSAT) Procedures Routine Sleep apnea, unspecified type 1 Occurrences starting 01/05/2022 until 01/05/2023 [facility] [employer] Work Phone: Comment on above: 1 Occurrences starting 01/05/2022 until 01/05/2023 End: 10-21-2023 DWAIN SCREENING DWAIN SCREENING Radiology Routine Encounter for screening mammogram for malignant neoplasm of breast 1 Occurrences starting 09/21/2022 until 10/21/2023 [facility] [employer] Work Phone: Comment on above: 1 Occurrences starting 09/21/2022 until 10/21/2023 Microscopic observation [Identifier] in Vaginal fluid by Gram stain BACT/ELAINE VAG GRAM STAIN Microbiology Routine Vaginal itching 09/21/2022 3:26 PM EDT [facility] [employer] Work Phone: PAP FLUID CERVICAL SCREENING PAP FLUID CERVICAL SCREENING Lab Routine Encounter for screening for malignant neoplasm of cervix 09/18/2021 4:48 PM EDT [facility] Work Phone: Patient Education [facility] Work Phone: Patient referral [facility] Work Phone: End: 10-18-2022 Screening mammography bi 2-view breast inc cad DWAIN SCREENING Radiology Routine Encounter for screening mammogram for malignant neoplasm of breast 1 Occurrences starting 09/18/2021 until 10/18/2022 [facility] Work Phone: Comment on above: 1 Occurrences starting 09/18/2021 until 10/18/2022 End: 03-08-2025 XR Foot - right AP and Lateral and oblique XR FOOT GENERAL 3V AP/LAT/OBL RIGHT Radiology Routine Acquired hallux valgus of right foot Hallux rigidus of right foot 1 Occurrences starting 02/07/2024 until 03/08/2025 [facility] Work Phone: Comment on above: 1 Occurrences starting 02/07/2024 until 03/08/2025 XR Foot - right AP a nd Lateral and oblique XR FOOT GENERAL 3V AP/LAT/OBL RIGHT Radiology Routine Acquired hallux valgus of right foot Hallux rigidus of right foot 02/07/2024 2:30 PM EST [facility] End: 12-28-2024 XR Knee - left 4 Views XR KNEE GENERAL 4V AP BOTH/P A BOTH/LAT/MERC LEFT Radiology Routine Injury of left knee, initial encounter 1 Occurrences starting 11/29/2023 until 12/28/2024 [facility] Work Phone: Comment on above: 1 Occurrences starting 11/29/2023 until 12/28/2024 XR Knee - left 4 Views XR KNEE G ENERAL 4V AP BOTH/PA BOTH/LAT/MERC LEFT Radiology Routine Injury of left knee, initial encounter 11/29/2023 11:39 AM EDT [facility] Immunizations Immunization Date Immunization Notes Care Provider Cristine grey 02-08-2024 COVID-19 vaccine, ag e 12+ yr (MODERNA) Darryl Cardenas PT [facility] 12-18-2023 influenza (HD-IIV4) vaccine, age 65+ yr, high dose, quadrivalent, PF (FLUZONE HIGH-DOSE) Darryl Cardenas PT [facility] 12-18-2023 influenza virus vacc ine, unspecified formulation Darryl Cardenas PT [facility] 01-06-2023 influenza virus vacc ine, unspecified formulation Shar Enamorado MD Work Phone: [facility] 12-22-2022 COVID-19 vaccine, ag e 12+ yr, season (MODERNA) Ladi Almanza APRN.DIE TECHNICIAN Work Phone: [facility] 05-05-2022 pneumococcal polysaccharide vaccine, 23 valent Micah High MD Work Phone: [facility] Work Phone: 12-30-2021 influenza (aIIV4) vaccine, age 65+ yr, quadrivalent, PF (FLUAD QUADRIVALENT) Micah High MD Work Phone: [facility] Work Phone: 12-30-2021 influenza virus vacc ine, unspecified formulation Eyal Guerrier Jr., MD Work Phone: [facility] 12-28-2021 influenza, high-dose , quadrivalent vaccine (FLUZONE HIGH DOSE QUADRIVALENT) Micah High MD Work Phone: [facility] 11-18-2020 influenza, high-dose , quadrivalent vaccine (FLUZONE HIGH DOSE QUADRIVALENT) Marylu Banks MD Work Phone: [facility] 05-27-2020 COVID-19 vaccine, fu ll dose (MODERNA) [facility] Work Phone: [facility] 05-03-2020 COVID-19 vaccine, fu ll dose (MODERNA) Us 1 Work Phone: [facility] 02-25-2020 tetanus toxoid, redu alisha diphtheria toxoid, and acellular pertussis vaccine, adsorbed Us 1 Work Phone: [facility] 01-02-2020 zoster vaccine recombinant Us 1 Work Phone: [facility] 11-19-2019 influenza, high-dose , quadrivalent vaccine (FLUZONE HIGH DOSE QUADRIVALENT) Us 1 Work Phone: [facility] 11-02-2019 zoster vaccine recombinant Us 1 Work Phone: [facility] 10-13-2019 pneumococcal conjuga te vaccine, 13 valent Us 1 Work Phone: [facility] 11-29-2018 influenza, injectabl e, quadrivalent, preservative free Us 1 Work Phone: [facility] 10-23-2018 hepatitis B immune globulin Us 1 Work Phone: [facility] 10-23-2018 hepatitis B vaccine, adult dosage Marylu Banks MD Work Phone: [facility] 07-05-2018 hepatitis B vaccine, adult dosage Us 1 Work Phone: [facility] 05-13-2018 hepatitis A vaccine, adult dosage Marylu Banks MD Work Phone: [facility] 04-20-2018 hepatitis A vaccine, adult dosage Us 1 Work Phone: [facility] 04-20-2018 hepatitis B vaccine, adult dosage Marylu Banks MD Work Phone: [facility] 04-20-2018 typhoid capsular polysaccharide vaccine Marylu Banks MD Work Phone: [facility] 11-11-2017 influenza, seasonal, injectable, preservative free Marylu Banks MD Work Phone: [facility] 02-08-2017 influenza, injectabl e, quadrivalent, contains preservative Us 1 Work Phone: [facility] Work Phone: 02-08-2017 influenza, seasonal, injectable, preservative free Marylu Banks MD Work Phone: [facility] 11-04-2014 hepatitis A vaccine, adult dosage Us 1 Work Phone: [facility] 05-13-2014 hepatitis A vaccine, adult dosage Us 1 Work Phone: [facility] 05-13-2014 tetanus toxoid, redu alisha diphtheria toxoid, and acellular pertussis vaccine, adsorbed Us 1 Work Phone: [facility] 05-01-2012 zoster vaccine, live Us 1 Work Phone: [facility] 12-26-2011 influenza virus vacc ine, unspecified formulation Us 1 Work Phone: [facility] 12-05-2009 influenza virus vacc ine, unspecified formulation Us 1 Work Phone: [facility] Work Phone: 03-05-2009 novel influenza-H1N1 -09, preservative-free, injectable Marylu Banks MD Work Phone: [facility] 09-15-2004 tetanus and diphther ia toxoids, adsorbed, preservative free, for adult use (2 Lf of tetanus toxoid and 2 Lf of diphtheria toxoid) Us 1 Work Phone: [facility] Work Phone: Payers Date Payer Category Payer Self-pay 2023 Medicare (Managed Care) [facility] MED[employer]VANTAGE O [id number] 2023 Unknown [id number] 2023 Unknown [id number] 2019 Medicare MEDICARE MEDICAR E A AND B [id number] 2019-Present [phone] [address] [address] [place] [address] Medicare [id number] 2019 Medicare [id number] 2019 Unknown ANTHEM ANTHEM ME DICARE SUPPLEMENT [id number] 2019-Present [phone] [address] [place] [address] Indemnity [id number] 2019 Unknown [id number] Medicare [id number] Unknown [id number] Unknown [id number] Unknown [id number] Social History Date Type Detail Facility Start: 06-18-2011 End: 12-06-2024 Tobacco smoking status NHIS Never smoked tobacco [facility] Work Phone: Start: 09-12-2020 End: 08-29-2024 Alcohol intake Current drinker of alcohol (finding) [facility] Start: 09-12-2020 End: 03-25-2022 Alcohol intake [facility] Start: 01-06-2020 End: 05-04-2022 History SDOH Alcohol Frequency 4 [facility] Start: 01-06-2020 End: 12-04-2021 History SDOH Alcohol Std Drinks 1 [facility] Start: 09-12-2020 History SDOH Alcohol Comment 3 x per week or less [facility] Start: 01-06-2020 End: 05-04-2022 History SDOH Social Connections Phone 5 [facility] Start: 01-06-2020 End: 05-04-2022 History SDOH Social Connections Get Together 2 [facility] Start: 01-06-2020 End: 05-04-2022 History SDOH Social Connections Buddhist 3 [facility] Start: 01-06-2020 End: 10-22-2021 History SDOH Physical Activity MPS 6 [facility] Start: 01-06-2020 Education 16 [facility] Start: 1955 Sex Assigned At Female C [facility] Start: 05-24-2021 End: 01-21-2022 Exposure to SARS-CoV-2 (event) Not sure [facility] Start: 06-18-2011 End: 10-28-2021 Tobacco use and exposure Smokeless tobacco non-user [facility] Start: 05-04-2022 History SDOH Physica l Activity DPW 7 [facility] Start: 03-25-2022 End: 05-04-2022 Social connection and isolation panel [facility] Do you belong to any clubs or organizations such as oriental orthodox groups, unions, fraternal or athletic groups, or school groups? Yes [facility] Are you now , , , , never or living with a partner? [facility] How often to you hav e a drink containing alcohol? 4 or more times a week [facility] How many standard dr inks containing alcohol do you have on a typical day? 1 or 2 [facility] How often do you hav e 6 or more drinks on 1 occasion? Never [facility] How hard is it for y ou to pay for the very basics like food, housing, medical care, and heating Not very hard [facility] Start: 02-06-2012 Adult Depression Scr eening Assessment 1 [facility] Do you feel stress - tense, restless, nervous, or anxious, or unable to sleep at night because your mind is troubled all the time - these days [OSQ] To some extent [facility] (I/We) worried whejw er (my/our) food would run out before (I/we) got money to buy more. Never true [facility] In the past 12 month s, was there a time when you were not able to pay the mortgage or rent on time? No [facility] How often to you hav e a drink containing alcohol? 2-3 time sa week [facility] Do you feel stress - tense, restless, nervous, or anxious, or unable to sleep at night because your mind is troubled all the time - these days [OSQ] Only a little [facility] Start: 1955 Sex assigned at Not on file C [facility] Start: 05-10-2024 Sex Female (finding) [facility] Functional Status Date Assessment Result Facility 05-13-2014 Are you deaf, or do you have serious difficulty hearing No 05/13/2014 3:23 PM Deena Dow RN No [facility] 05-13-2014 Are you blind, or do you have serious difficulty seeing, even when wearing glasses No 05/13/2014 3:23 PM Deena Dow RN No [facility] 05-13-2014 Do you have serious difficulty walking or climbing stairs No 05/13/2014 3:23 PM Deena Dow RN No [facility] 05-13-2014 Do you have difficul ty dressing or bathing No 05/13/2014 3:23 PM Deena Dow RN No [facility] 05-13-2014 Because of a physica l, mental, or emotional condition, do you have difficulty doing errands alone such as visiting a physician's office or shopping No 05/13/2014 3:23 PM Deena Dow RN No [facility] Mental Status Date Assessment Result Facility 12-06-2024 Cognitive function Level Of Cons ciousness Awake [facility] Work Phone: 05-13-2014 Because of a physica l, mental, or emotional condition, do you have serious difficulty concentrating, remembering, or making decisions No 05/13/2014 3:23 PM Deena Dow RN No [facility] Clinical Notes 06-03-2021 to 12-06-2024 Telephone Encounter - Nahomi Pineda MA - 11/08/2024 9:22 AM EDTTelephone Encounter - Nahomi Pineda, MA - 11/08/2024 9:22 AM Darryl Zambrano PT - 11/02/2024 2:29 PM EDT Note Date & Type Note Facility 12-06-2024 Radiology Diagnostic study note [facility] Imaging Services [address] [place] [address] Chest PA and Lateral MR#: [id number] Acct: [id number] Name: JAZ DUKES Rep #: [id number] : 1955 F 69 From: Shirin Gonzalez MD PCP: Dr. Micah High MD Status: PRE E R Study:Chest PA and Lateral Date of Exam: 12/06/24 Exam# [id number] Ordering Dr: Apolinar Finley DO PROCEDURE: CHEST PA AND LATERAL 12/06/2024 REASON FOR EXAM: COUGH TECHNIQUE: Procedure Code: RADCXR Modality: DX Procedure: CHEST PA AND LATERAL COMPARISON: None FINDINGS: Heart: The heart size is normal. Mediastinum: The mediastinal contour is unremarkable. Lungs: Right basilar patchy opacity concerning for underlying infectious/inflammatory process. Bones: Degenerative changes of visualized spine. RAD/Chest PA and Lateral IMPRESSION: Right basilar patchy opacity concerning for underlying infectious/inflammatory process. Correlate clinically Reading Location: [facility] CC: Dr. Micah High MD; Dr. Apolinar Finley DO ~ Wrapper Selector: Signed [facility] 12-06-2024 Note HNO ID: [id number] Author: VASILE MARI APRN.DIE TECHNICIAN Service: ? Author Type: Nurse Practitioner Type: Progress Notes Filed: 12/06/2024 15:31 Note Text: Patient presents today stating that she recently was on a cruise and developed cold-like symptoms. She states that November 27 through December 05 she was generally feeling just not like herself but awoke today feeling very fatigued and slept all day. She also notes a vague sensation of generalized chest pain. Denies any fever but does note mild cough, fatigue, and chest pain. She did test negative for COVID at home. Vitals today here are unremarkable. I discussed with patient that if her concern was related to fatigue and chest pain she would need to be evaluated at the emergency department as the only thing I could actually test for here would be for viral illness. After discussion, patient states that she will go to the emergency department for evaluation. Patient was offered a squad but patient notes that her is in the parking lot and will drive her across the street to [facility]. Patient was in no acute distress on my evaluation. [facility] 12-03-2024 Note HNO ID: [id number] Author: DARRYL CARDENAS PT Service: ? Author Type: Physical Therapist Type: Progress Notes Filed: 12/03/2024 10:38 Note Text: Episode Visit Count: 22 Therapist That Will Accept/Oversee The Plan Of Care: Darryl Cardenas Start of Care Date: 12/19/23 Onset Date: 02/18/24 Plan of Care Certification Date: 10/15/24 Next Certification Due Date: 12/15/24 REHABILITATION AND SPORTS THERAPY PHYSICAL THERAPY DISCONTINUANCE OF CARE PLAN OF CARE UPDATE: Assessment: Jaz Dukes is discontinued from Physical Therapy services due to maximal benefit.. Patient was seen for 22 visits from Start of Care Date: 12/19/23 to 12/03/2024 and treatment included: Therapeutic exercise, Manual therapy, and Self-residential management. Goals updated on 11/30/2024. Goals for Episode of Care: established 12/19/23 [place] in home exercise program. Met Patient will decrease pain rating by 2 points to meet minimal clinical important difference for numeric pain rating scale. Met Patient will increase active ROM of cervical spine to WNL to allow pt to to improve performance of ADLs. Met Patient will demonstrate increase in L knee strength to 4+/5 during manual muscle testing in order to improve function for basic self-care tasks, home management tasks, and prior functional tasks. Met Sleep throughout the night without pain/symptoms. Met SUBJECTIVE: Patient has been doing well over the last few weeks. She notes that she has had some intermittent tightness, but no symptoms from before (stabbing pain). Patient can do the exercises and they resolve her symptoms. Pain: Pain Pain Level: 0 Pain Location: Neck Description: Tightness Frequency: Intermittent PROMIS Scales 11/30/2024 10/14/2024 07/21/2024 Higher is Better Phys Func - T Score 51 (within normal limits) 58 (within normal limits) 51 (within normal limits) Phys Func - Percentile 54 79 54 Self-Eff Symptom - T Score 25 (Very Low) 48 (Average) 48 (Average) Self-Eff Symptom - Percentile 1 42 42 03/26/2024 02/11/2020 01/14/2020 Lower is Better Pain Interference - T Score 53 (within normal limits) 56 (mild) 62 (moderate) Pain Interference - Percentile 38 27 12 T-Score and Percentile Interpretation T-scores: mean of general population = 50. 5 points is clinically meaningfully difference Percentiles provide an indication of how the patient's score ranks in relation to the general population. Higher percentile rankings indicate better function/quality of life. 50th percentile is the average of the general population and indicates half of respondents had a worse score. OBJECTIVE MEASURES WITH LEVEL OF FUNCTION: Spine Observations L Cervical Spine Palpation Tenderness: No tenderness noted Cervical Spine ROM Cervical Flexion AROM: Normal Cervical Extension AROM: Normal Cervical Side-Bend Right AROM: Minimal limitation Cervical Side-Bend Left AROM: Minimal limitation Cervical Rotation Right AROM: Normal Cervical Rotation Left AROM: Normal TREATMENT: Manual Therapy: 1: Objective measures obtained 2: STM to L levator, paraspinals, and upper trap with push to tolerance 3: Manual cervical traction x5 min Skilled Intervention: Manual skills to improve joint mobility, ROM, and decrease pain. Utilized anatomy knowledge of the clinician, and assessment of patient's response to intervention. Billing Manual TherapyTreatment Minutes: 26 Skilled Treatment Time Minutes (timed and untimed codes): 26 Total Session Time (minutes): 26 Session Start Time : 1300 Session Stop Time : 1326 Darryl Cardenas PT [facility] 11-19-2024 Note HNO ID: [id number] Author: STUART ROJAS PSYD Service: ? Author Type: Psychologist Type: Progress Notes Filed: 11/19/2024 21:32 Note Text: No Show [facility] 11-08-2024 Telephone encounter Note The following approved medication requests have been transmitted electronically. Requested Prescriptions Signed Prescriptions Disp Refills LORazepam (ATIVAN) 0.5 mg 21 tablet 0 Sig: Take 1 tablet by mouth three times a day as needed for up to 7 days. Nahomi Pineda MA [facility] 11-08-2024 Miscellaneous Notes The following approved medication requests have been transmitted electronically. Requested Prescriptions Signed Prescriptions Disp Refills LORazepam (ATIVAN) 0.5 mg 21 tablet 0 Sig: Take 1 tablet by mouth three times a day as needed for up to 7 days. Nahomi Pineda MA Patient has been identified by name and date of : yes Patient phones for refill(s): Requested Prescriptions Pending Prescriptions Disp Refills LORazepam (ATIVAN) 0.5 mg 21 tablet 0 Sig: Take 1 tablet by mouth three times a day as needed for up to 7 days. Date of last office visit in primary care: 08/29/2024 Date of next office visit in primary care: 12/21/24 Please advise. Thank you. Helene Mera MA. documented in this encounter [facility] 11-07-2024 Telephone encounter Note Patient has been identified by name and date of : yes Patient phones for refill(s): Requested Prescriptions Pending Prescriptions Disp Refills LORazepam (ATIVAN) 0.5 mg 21 tablet 0 Sig: Take 1 tablet by mouth three times a day as needed for up to 7 days. Date of last office visit in primary care: 08/29/2024 Date of next office visit in primary care: 12/21/24 Please advise. Thank you. Helene Mera MA. [facility] 11-02-2024 Note HNO ID: [id number] Author: DARRYL CARDENAS PT Service: ? Author Type: Physical Therapist Type: Progress Notes Filed: 11/02/2024 14:30 Note Text: Episode Visit Count: 21 Therapist That Will Accept/Oversee The Plan Of Care: Darryl Cardenas Start of Care Date: 12/19/23 Onset Date: 02/18/24 Plan of Care Certification Date: 10/15/24 Next Certification Due Date: 12/15/24 REHABILITATION AND SPORTS THERAPY PHYSICAL THERAPY PROGRESS REPORT PLAN OF CARE UPDATE: Assessment: Jaz Dukes demonstrates significant improvement in bending, heavy exertion, lifting, physical activities, recreational activities, sleeping, cleaning, and cooking . The patient has progressed toward goals. Patient continues to present with impairments in range of motion, symptom management, and tissue tenderness that interfere with bending, heavy exertion, lifting, physical activities . Current prognosis is Excellent due to: good overall health status, acuteness of condition, current objective clinical presentation, positive past response to therapy, within-session changes, good support system/ coping skills . The patient will benefit from continued skilled therapy services to meet the updated goals for this plan of care as noted below. Goals updated on 11/02/2024. Goals for Episode of Care: established 12/19/23 [place] in home exercise program. Met Patient will decrease pain rating by 2 points to meet minimal clinical important difference for numeric pain rating scale. Partially met Patient will increase active ROM of cervical spine to WNL to allow pt to to improve performance of ADLs. Progressing Patient will demonstrate increase in L knee strength to 4+/5 during manual muscle testing in order to improve function for basic self-care tasks, home management tasks, and prior functional tasks. Progressing Sleep throughout the night without pain/symptoms. Progressing Time Frame for Goals and Treatment : 12/05/24 Planned Interventions, Frequency, and Duration: 1x/month, 4 weeks Total Number of Visits Planned: 1 Patient to be seen for Neuromuscular re-education (44040), Therapeutic exercise (35958), Manual therapy (30216), Therapeutic activities (06125), Self-residential management (28107), Patient/Family/Caregiver Education, Body Mechanics Training PLAN FOR NEXT VISIT: [place] vs [place] SUBJECTIVE: Patient notes that she has not had any of the sharp pain in the last 2 weeks, but simply some tightness/aching/soreness. Notes that. Functional Limitations: bending, heavy exertion, lifting, physical activities Pain: Pain Pain Level: 2 Pain Location: Neck Description: Tightness Frequency: Intermittent PROMIS Scales 10/14/2024 07/21/2024 05/28/2024 Higher is Better Phys Func - T Score 58 (within normal limits) 51 (within normal limits) 50 (within normal limits) Phys Func - Percentile 79 54 50 Self-Eff Symptom - T Score 48 (Average) 48 (Average) 41 (Average) Self-Eff Symptom - Percentile 42 42 18 03/26/2024 02/11/2020 01/14/2020 Lower is Better Pain Interference - T Score 53 (within normal limits) 56 (mild) 62 (moderate) Pain Interference - Percentile 38 27 12 T-Score and Percentile Interpretation T-scores: mean of general population = 50. 5 points is clinically meaningfully difference Percentiles provide an indication of how the patient's score ranks in relation to the general population. Higher percentile rankings indicate better function/quality of life. 50th percentile is the average of the general population and indicates half of respondents had a worse score. OBJECTIVE MEASURES WITH LEVEL OF FUNCTION: Spine Observations L Cervical Spine Palpation Tenderness: Upper trapezius, Levator scapulae, Paraspinals Cervical Spine ROM Cervical Flexion AROM: Normal Cervical Extension AROM: Minimal limitation Cervical Side-Bend Right AROM: Minimal limitation Cervical Side-Bend Left AROM: Minimal limitation Cervical Rotation Right AROM: Minimal limitation Cervical Rotation Left AROM: Minimal limitation TREATMENT: Manual Therapy: 1: STM to L levator, paraspinals, and upper trap with push to tolerance 2: L C4 formainal opening 5 rounds x20 reps each grade 2-3 3: Manual cervical traction x5 min 4: Objective measures obtained Skilled Intervention: Manual skills to improve joint mobility, ROM, and decrease pain. Utilized anatomy knowledge of the clinician, and assessment of patient's response to intervention. Billing Manual TherapyTreatment Minutes: 26 Skilled Treatment Time Minutes (timed and untimed codes): 26 Total Session Time (minutes): 26 Session Start Time : 1350 Session Stop Time : 1416 Darryl Cardenas PT [facility] 11-02-2024 History of Present illness Narrative Images from the original note were not included. Episode Visit Count: 21 Therapist That Will Accept/Oversee The Plan Of Care: Darryl Cardenas Start of Care Date: 12/19/23 Onset Date: 02/18/24 Plan of Care Certification Date: 10/15/24 Next Certification Due Date: 12/15/24 REHABILITATION AND SPORTS THERAPY PHYSICAL THERAPY PROGRESS REPORT PLAN OF CARE UPDATE: Assessment: Jaz Dukes demonstrates significant improvement in bending, heavy exertion, lifting, physical activities, recreational activities, sleeping, cleaning, and cooking . The patient has progressed toward goals. Patient continues to present with impairments in range of motion, symptom management, and tissue tenderness that interfere with bending, heavy exertion, lifting, physical activities . Current prognosis is Excellent due to: good overall health status, acuteness of condition, current objective clinical presentation, positive past response to therapy, within-session changes, good support system/ coping skills . The patient will benefit from continued skilled therapy services to meet the updated goals for this plan of care as noted below. Goals updated on 11/02/2024. Goals for Episode of Care: established 12/19/23 [place] in home exercise program. Met Patient will decrease pain rating by 2 points to meet minimal clinical important difference for numeric pain rating scale. Partially met Patient will increase active ROM of cervical spine to WNL to allow pt to to improve performance of ADLs. Progressing Patient will demonstrate increase in L knee strength to 4+/5 during manual muscle testing in order to improve function for basic self-care tasks, home management tasks, and prior functional tasks. Progressing Sleep throughout the night without pain/symptoms. Progressing Time Frame for Goals and Treatment : 12/05/24 Planned Interventions, Frequency, and Duration: 1x/month, 4 weeks Total Number of Visits Planned: 1 Patient to be seen for Neuromuscular re-education (75900), Therapeutic exercise (92094), Manual therapy (42942), Therapeutic activities (10987), Self-residential management (14016), Patient/Family/Caregiver Education, Body Mechanics Training PLAN FOR NEXT VISIT: [place] vs [place] SUBJECTIVE: Patient notes that she has not had any of the sharp pain in the last 2 weeks, but simply some tightness/aching/soreness. Notes that. Functional Limitations: bending, heavy exertion, lifting, physical activities Pain: Pain Pain Level: 2 Pain Location: Neck Description: Tightness Frequency: Intermittent PROMIS Scales 10/14/2024 07/21/2024 05/28/2024 Higher is Better Phys Func - T Score 58 (within normal limits) 51 (within normal limits) 50 (within normal limits) Phys Func - Percentile 79 54 50 Self-Eff Symptom - T Score 48 (Average) 48 (Average) 41 (Average) Self-Eff Symptom - Percentile 42 42 18 03/26/2024 02/11/2020 01/14/2020 Lower is Better Pain Interference - T Score 53 (within normal limits) 56 (mild) 62 (moderate) Pain Interference - Percentile 38 27 12 T-Score and Percentile Interpretation T-scores: mean of general population = 50. 5 points is clinically meaningfully difference Percentiles provide an indication of how the patient's score ranks in relation to the general population. Higher percentile rankings indicate better function/quality of life. 50th percentile is the average of the general population and indicates half of respondents had a worse score. OBJECTIVE MEASURES WITH LEVEL OF FUNCTION: Spine Observations L Cervical Spine Palpation Tenderness: Upper trapezius, Levator scapulae, Paraspinals Cervical Spine ROM Cervical Flexion AROM: Normal Cervical Extension AROM: Minimal limitation Cervical Side-Bend Right AROM: Minimal limitation Cervical Side-Bend Left AROM: Minimal limitation Cervical Rotation Right AROM: Minimal limitation Cervical Rotation Left AROM: Minimal limitation TREATMENT: Manual Therapy: 1: STM to L levator, paraspinals, and upper trap with push to tolerance 2: L C4 formainal opening 5 rounds x20 reps each grade 2-3 3: Manual cervical traction x5 min 4: Objective measures obtained Skilled Intervention: Manual skills to improve joint mobility, ROM, and decrease pain. Utilized anatomy knowledge of the clinician, and assessment of patient's response to intervention. Billing Manual TherapyTreatment Minutes: 26 Skilled Treatment Time Minutes (timed and untimed codes): 26 Total Session Time (minutes): 26 Session Start Time : 1350 Session Stop Time : 1416 Darryl Cardenas PT documented in this encounter [facility] 10-19-2024 History of Present illness Narrative Radiology Service Progress Note PATIENT NAME: Jaz Dukes DATE OF SERVICE: October 19, 2024 TIME: 1:41 PM PATIENT IDENTITY VERIFICATION COMPLETED USING TWO (2) IDENTIFIERS: Name and Date of confirmed by patient verbally. FALL SCREENING: Has the patient had 2 falls in the last year or 1 fall with injury or currently using an Ambulatory Assistive Device (Walker, Cane, Wheelchair, Crutches, etc.)? No PATIENT GENDER DATA: Assigned female at . status: : No status: NO. PATIENT RELEVANT IMPLANT DATA REVIEWED: Not Applicable PATIENT PRESENTS WITH AN IMPLANTABLE OR ATTACHED GREEN HIDE INSPECTOR: No RADIOLOGY DEPARTMENT: Mammography PERIPHERAL IV DATA: Not applicable SIGNED BY: RT Shamar(Monica) October 19, 2024 1:41 PM documented in this encounter [facility] 10-19-2024 Note HNO ID: [id number] Author: SUDHA TAVAREZ RT(R) Service: ? Author Type: Technologist Type: Progress Notes Filed: 10/19/2024 13:41 Note Text: Radiology Service Progress Note PATIENT NAME: Jaz Dukes DATE OF SERVICE: October 19, 2024 TIME: 1:41 PM PATIENT IDENTITY VERIFICATION COMPLETED USING TWO (2) IDENTIFIERS: Name and Date of confirmed by patient verbally. FALL SCREENING: Has the patient had 2 falls in the last year or 1 fall with injury or currently using an Ambulatory Assistive Device (Walker, Cane, Wheelchair, Crutches, etc.)? No PATIENT GENDER DATA: Assigned female at . status: : No status: NO. PATIENT RELEVANT IMPLANT DATA REVIEWED: Not Applicable PATIENT PRESENTS WITH AN IMPLANTABLE OR ATTACHED GREEN HIDE INSPECTOR: No RADIOLOGY DEPARTMENT: Mammography PERIPHERAL IV DATA: Not applicable SIGNED BY: RT Shamar(Monica) October 19, 2024 1:41 PM [facility] 10-15-2024 Note HNO ID: [id number] Author: DARRYL CARDENAS PT Service: ? Author Type: Physical Therapist Type: Progress Notes Filed: 10/15/2024 13:53 Note Text: Episode Visit Count: 20 Therapist That Will Accept/Oversee The Plan Of Care: Darryl Cardenas Start of Care Date: 12/19/23 Onset Date: 02/18/24 Plan of Care Certification Date: 10/15/24 Next Certification Due Date: 12/15/24 REHABILITATION AND SPORTS THERAPY PHYSICAL THERAPY PROGRESS REPORT PLAN OF CARE UPDATE: Assessment: Jaz Dukes demonstrates moderate improvement in bending, heavy exertion, lifting, and physical activities. The patient has progressed toward goals. Patient continues to present with impairments in ADL's, overall function, range of motion, symptom management, and tissue tenderness that interfere with bending, heavy exertion, lifting, physical activities . Current prognosis is Excellent due to: current objective clinical presentation, good overall health status, positive past response to therapy, within-session changes, good support system/ coping skills . The patient will benefit from continued skilled therapy services to meet the updated goals for this plan of care as noted below. Goals updated on 10/15/2024. Goals for Episode of Care: established 12/19/23 [place] in home exercise program. Met Patient will decrease pain rating by 2 points to meet minimal clinical important difference for numeric pain rating scale. Partially met Patient will increase active ROM of cervical spine to WNL to allow pt to to improve performance of ADLs. Progressing Patient will demonstrate increase in L knee strength to 4+/5 during manual muscle testing in order to improve function for basic self-care tasks, home management tasks, and prior functional tasks. Progressing Sleep throughout the night without pain/symptoms. Progressing Time Frame for Goals and Treatment : 12/15/24 Planned Interventions, Frequency, and Duration: 1x/month, 8 weeks Total Number of Visits Planned: 2 Patient to be seen for Therapeutic exercise (68236), Manual therapy (41163), Therapeutic activities (38748), Neuromuscular re-education (51376), Self-residential management (74257), Patient/Family/Caregiver Education, Body Mechanics Training PLAN FOR NEXT VISIT: Will see patient in 2 weeks before I leave on vacation, then after I return. SUBJECTIVE: Patient was feeling really good until ~a week ago. She notes that it is not the same sharp, knife like pain, it is sore and feels like I got punched. She has been doing a lot of gardening lately, that may be the cause. Functional Limitations: bending, heavy exertion, lifting, physical activities Pain: Pain Pain Level: 4 Pain Location: Neck Description: Sore, Tightness, Aching Frequency: Intermittent PROMIS Scales 10/14/2024 07/21/2024 05/28/2024 Higher is Better Phys Func - T Score 58 (within normal limits) 51 (within normal limits) 50 (within normal limits) Phys Func - Percentile 79 54 50 Self-Eff Symptom - T Score 48 (Average) 48 (Average) 41 (Average) Self-Eff Symptom - Percentile 42 42 18 03/26/2024 02/11/2020 01/14/2020 Lower is Better Pain Interference - T Score 53 (within normal limits) 56 (mild) 62 (moderate) Pain Interference - Percentile 38 27 12 T-Score and Percentile Interpretation T-scores: mean of general population = 50. 5 points is clinically meaningfully difference Percentiles provide an indication of how the patient's score ranks in relation to the general population. Higher percentile rankings indicate better function/quality of life. 50th percentile is the average of the general population and indicates half of respondents had a worse score. OBJECTIVE MEASURES WITH LEVEL OF FUNCTION: Spine Observations L Cervical Spine Palpation Tenderness: Paraspinals, Levator scapulae, Upper trapezius Cervical Spine ROM Cervical Flexion AROM: Normal Cervical Extension AROM: Minimal limitation Cervical Side-Bend Right AROM: Moderate limitation Cervical Side-Bend Left AROM: Minimal limitation Cervical Rotation Right AROM: Minimal limitation Cervical Rotation Left AROM: Minimal limitation TREATMENT: Manual Therapy: 1: STM to L paraspinals with push to tolerance 2: C4-5 L side glides with R SB 2x30 grades 3-4 3: L C4-5 facet opening 3x20 reps 4: *Self SNAG with R side bend and L side gldes 3x10 5: Objective measures obtained Skilled Intervention: Manual skills to improve joint mobility, ROM, and decrease pain. Utilized anatomy knowledge of the clinician, and assessment of patient's response to intervention. Billing Manual TherapyTreatment Minutes: 38 Skilled Treatment Time Minutes (timed and untimed codes): 38 Total Session Time (minutes): 38 Session Start Time : 950 Session Stop Time : 1028 Darryl Cardenas PT [facility] 10-15-2024 History of Present illness Narrative Images from the original note were not included. Episode Visit Count: 20 Therapist That Will Accept/Oversee The Plan Of Care: Darryl Cardenas Start of Care Date: 12/19/23 Onset Date: 02/18/24 Plan of Care Certification Date: 10/15/24 Next Certification Due Date: 12/15/24 REHABILITATION AND SPORTS THERAPY PHYSICAL THERAPY PROGRESS REPORT PLAN OF CARE UPDATE: Assessment: Jaz Dukes demonstrates moderate improvement in bending, heavy exertion, lifting, and physical activities. The patient has progressed toward goals. Patient continues to present with impairments in ADL's, overall function, range of motion, symptom management, and tissue tenderness that interfere with bending, heavy exertion, lifting, physical activities . Current prognosis is Excellent due to: current objective clinical presentation, good overall health status, positive past response to therapy, within-session changes, good support system/ coping skills . The patient will benefit from continued skilled therapy services to meet the updated goals for this plan of care as noted below. Goals updated on 10/15/2024. Goals for Episode of Care: established 12/19/23 [place] in home exercise program. Met Patient will decrease pain rating by 2 points to meet minimal clinical important difference for numeric pain rating scale. Partially met Patient will increase active ROM of cervical spine to WNL to allow pt to to improve performance of ADLs. Progressing Patient will demonstrate increase in L knee strength to 4+/5 during manual muscle testing in order to improve function for basic self-care tasks, home management tasks, and prior functional tasks. Progressing Sleep throughout the night without pain/symptoms. Progressing Time Frame for Goals and Treatment : 12/15/24 Planned Interventions, Frequency, and Duration: 1x/month, 8 weeks Total Number of Visits Planned: 2 Patient to be seen for Therapeutic exercise (46800), Manual therapy (83700), Therapeutic activities (06788), Neuromuscular re-education (47563), Self-residential management (96076), Patient/Family/Caregiver Education, Body Mechanics Training PLAN FOR NEXT VISIT: Will see patient in 2 weeks before I leave on vacation, then after I return. SUBJECTIVE: Patient was feeling really good until ~a week ago. She notes that it is not the same sharp, knife like pain, it is sore and feels like I got punched. She has been doing a lot of gardening lately, that may be the cause. Functional Limitations: bending, heavy exertion, lifting, physical activities Pain: Pain Pain Level: 4 Pain Location: Neck Description: Sore, Tightness, Aching Frequency: Intermittent PROMIS Scales 10/14/2024 07/21/2024 05/28/2024 Higher is Better Phys Func - T Score 58 (within normal limits) 51 (within normal limits) 50 (within normal limits) Phys Func - Percentile 79 54 50 Self-Eff Symptom - T Score 48 (Average) 48 (Average) 41 (Average) Self-Eff Symptom - Percentile 42 42 18 03/26/2024 02/11/2020 01/14/2020 Lower is Better Pain Interference - T Score 53 (within normal limits) 56 (mild) 62 (moderate) Pain Interference - Percentile 38 27 12 T-Score and Percentile Interpretation T-scores: mean of general population = 50. 5 points is clinically meaningfully difference Percentiles provide an indication of how the patient's score ranks in relation to the general population. Higher percentile rankings indicate better function/quality of life. 50th percentile is the average of the general population and indicates half of respondents had a worse score. OBJECTIVE MEASURES WITH LEVEL OF FUNCTION: Spine Observations L Cervical Spine Palpation Tenderness: Paraspinals, Levator scapulae, Upper trapezius Cervical Spine ROM Cervical Flexion AROM: Normal Cervical Extension AROM: Minimal limitation Cervical Side-Bend Right AROM: Moderate limitation Cervical Side-Bend Left AROM: Minimal limitation Cervical Rotation Right AROM: Minimal limitation Cervical Rotation Left AROM: Minimal limitation TREATMENT: Manual Therapy: 1: STM to L paraspinals with push to tolerance 2: C4-5 L side glides with R SB 2x30 grades 3-4 3: L C4-5 facet opening 3x20 reps 4: *Self SNAG with R side bend and L side gldes 3x10 5: Objective measures obtained Skilled Intervention: Manual skills to improve joint mobility, ROM, and decrease pain. Utilized anatomy knowledge of the clinician, and assessment of patient's response to intervention. Billing Manual TherapyTreatment Minutes: 38 Skilled Treatment Time Minutes (timed and untimed codes): 38 Total Session Time (minutes): 38 Session Start Time : 950 Session Stop Time : 1028 Darryl Cardenas PT documented in this encounter [facility] 09-13-2024 Note HNO ID: [id number] Author: DARRYL CARDENAS PT Service: ? Author Type: Physical Therapist Type: Progress Notes Filed: 09/13/2024 17:50 Note Text: Episode Visit Count: 19 Therapist That Will Accept/Oversee The Plan Of Care: Darryl Cardenas Start of Care Date: 12/19/23 Onset Date: 02/18/24 Plan of Care Certification Date: 07/26/24 Next Certification Due Date: 09/25/24 REHABILITATION AND SPORTS THERAPY PHYSICAL THERAPY PROGRESS REPORT PLAN OF CARE UPDATE: Assessment: Jaz Dukes demonstrates moderate improvement in standing, bending, physical activities, driving, cleaning, and cooking. The patient has progressed toward goals. Patient continues to present with impairments in range of motion, symptom management, and tissue tenderness that interfere with bending, heavy exertion, lifting, physical activities . Current prognosis is Excellent due to: current objective clinical presentation, good overall health status, acuteness of condition, positive past response to therapy, within-session changes, good support system/ coping skills . The patient will benefit from continued skilled therapy services to meet the updated goals for this plan of care as noted below. Goals updated on 09/13/2024. Goals for Episode of Care: established 12/19/23 [place] in home exercise program. Met Patient will decrease pain rating by 2 points to meet minimal clinical important difference for numeric pain rating scale. Partially met Patient will increase active ROM of cervical spine to WNL to allow pt to to improve performance of ADLs. Progressing Patient will demonstrate increase in L knee strength to 4+/5 during manual muscle testing in order to improve function for basic self-care tasks, home management tasks, and prior functional tasks. Progressing Sleep throughout the night without pain/symptoms. Progressing Time Frame for Goals and Treatment : 10/14/24 Planned Interventions, Frequency, and Duration: 1x/month, 1 visit Total Number of Visits Planned: 1 Patient to be seen for Therapeutic exercise (12043), Manual therapy (34057), Self-residential management (27270) PLAN FOR NEXT VISIT: [place] vs [place] SUBJECTIVE: Patient has not had any sharp or knife like pains in the last 2 weeks. Notes that she feels the new exercises are very helpful. Functional Limitations: bending, heavy exertion, lifting, physical activities Pain: Pain Pain Level: 2 Pain Location: Neck Description: Sore, Tightness Frequency: Intermittent PROMIS Scales 07/21/2024 05/28/2024 04/11/2024 Higher is Better Phys Func - T Score 51 (within normal limits) 50 (within normal limits) 52 (within normal limits) Phys Func - Percentile 54 50 58 Self-Eff Symptom - T Score 48 (Average) 41 (Average) 46 (Average) Self-Eff Symptom - Percentile 42 18 34 03/26/2024 02/11/2020 01/14/2020 Lower is Better Pain Interference - T Score 53 (within normal limits) 56 (mild) 62 (moderate) Pain Interference - Percentile 38 27 12 T-scores: mean of general population = 50. 5 points is clinically meaningfully difference Percentiles provide an indication of how the patient's score ranks in relation to the general population. Higher percentile rankings indicate better function/quality of life. 50th percentile is the average of the general population and indicates half of respondents had a worse score. OBJECTIVE MEASURES WITH LEVEL OF FUNCTION: Spine Observations R Cervical Spine Palpation Tenderness: Paraspinals L Cervical Spine Palpation Tenderness: Paraspinals Cervical Spine ROM Cervical Flexion AROM: Normal Cervical Extension AROM: Minimal limitation Cervical Side-Bend Right AROM: Moderate limitation Cervical Side-Bend Left AROM: Moderate limitation Cervical Rotation Right AROM: Minimal limitation Cervical Rotation Left AROM: Minimal limitation TREATMENT: Therapeutic Exercise: 1: Reviewed HEP and patient will now perform them bilaterally 2: Objective measures obtained Skilled Intervention: Patient was educated in proper exercise technique and purpose for exercises. Skilled judgment was used in selection of appropriate interventions. Patient education as noted. Manual Therapy: 1: B C4-5 facet opening 3x20 reps 2: B C4-5 side glides 6x20 reps; 3 in neutral, 3 in SB 3: Manual cervical traction x4 min total Skilled Intervention: Manual skills to improve joint mobility, ROM, and decrease pain. Utilized anatomy knowledge of the clinician, and assessment of patient's response to intervention. Billing Therapeutic Exercise Treatment Minutes: 12 Manual TherapyTreatment Minutes: 20 Skilled Treatment Time Minutes (timed and untimed codes): 32 Total Session Time (minutes): 32 Session Start Time : 915 Session Stop Time : 947 Darryl Cardenas PT [facility] 09-13-2024 History of Present illness Narrative Images from the original note were not included. Episode Visit Count: 19 Therapist That Will Accept/Oversee The Plan Of Care: Darryl Cardenas Start of Care Date: 12/19/23 Onset Date: 02/18/24 Plan of Care Certification Date: 07/26/24 Next Certification Due Date: 09/25/24 REHABILITATION AND SPORTS THERAPY PHYSICAL THERAPY PROGRESS REPORT PLAN OF CARE UPDATE: Assessment: Jaz Dukes demonstrates moderate improvement in standing, bending, physical activities, driving, cleaning, and cooking. The patient has progressed toward goals. Patient continues to present with impairments in range of motion, symptom management, and tissue tenderness that interfere with bending, heavy exertion, lifting, physical activities . Current prognosis is Excellent due to: current objective clinical presentation, good overall health status, acuteness of condition, positive past response to therapy, within-session changes, good support system/ coping skills . The patient will benefit from continued skilled therapy services to meet the updated goals for this plan of care as noted below. Goals updated on 09/13/2024. Goals for Episode of Care: established 12/19/23 [place] in home exercise program. Met Patient will decrease pain rating by 2 points to meet minimal clinical important difference for numeric pain rating scale. Partially met Patient will increase active ROM of cervical spine to WNL to allow pt to to improve performance of ADLs. Progressing Patient will demonstrate increase in L knee strength to 4+/5 during manual muscle testing in order to improve function for basic self-care tasks, home management tasks, and prior functional tasks. Progressing Sleep throughout the night without pain/symptoms. Progressing Time Frame for Goals and Treatment : 10/14/24 Planned Interventions, Frequency, and Duration: 1x/month, 1 visit Total Number of Visits Planned: 1 Patient to be seen for Therapeutic exercise (19757), Manual therapy (78073), Self-residential management (69784) PLAN FOR NEXT VISIT: [place] vs [place] SUBJECTIVE: Patient has not had any sharp or knife like pains in the last 2 weeks. Notes that she feels the new exercises are very helpful. Functional Limitations: bending, heavy exertion, lifting, physical activities Pain: Pain Pain Level: 2 Pain Location: Neck Description: Sore, Tightness Frequency: Intermittent PROMIS Scales 07/21/2024 05/28/2024 04/11/2024 Higher is Better Phys Func - T Score 51 (within normal limits) 50 (within normal limits) 52 (within normal limits) Phys Func - Percentile 54 50 58 Self-Eff Symptom - T Score 48 (Average) 41 (Average) 46 (Average) Self-Eff Symptom - Percentile 42 18 34 03/26/2024 02/11/2020 01/14/2020 Lower is Better Pain Interference - T Score 53 (within normal limits) 56 (mild) 62 (moderate) Pain Interference - Percentile 38 27 12 T-scores: mean of general population = 50. 5 points is clinically meaningfully difference Percentiles provide an indication of how the patient's score ranks in relation to the general population. Higher percentile rankings indicate better function/quality of life. 50th percentile is the average of the general population and indicates half of respondents had a worse score. OBJECTIVE MEASURES WITH LEVEL OF FUNCTION: Spine Observations R Cervical Spine Palpation Tenderness: Paraspinals L Cervical Spine Palpation Tenderness: Paraspinals Cervical Spine ROM Cervical Flexion AROM: Normal Cervical Extension AROM: Minimal limitation Cervical Side-Bend Right AROM: Moderate limitation Cervical Side-Bend Left AROM: Moderate limitation Cervical Rotation Right AROM: Minimal limitation Cervical Rotation Left AROM: Minimal limitation TREATMENT: Therapeutic Exercise: 1: Reviewed HEP and patient will now perform them bilaterally 2: Objective measures obtained Skilled Intervention: Patient was educated in proper exercise technique and purpose for exercises. Skilled judgment was used in selection of appropriate interventions. Patient education as noted. Manual Therapy: 1: B C4-5 facet opening 3x20 reps 2: B C4-5 side glides 6x20 reps; 3 in neutral, 3 in SB 3: Manual cervical traction x4 min total Skilled Intervention: Manual skills to improve joint mobility, ROM, and decrease pain. Utilized anatomy knowledge of the clinician, and assessment of patient's response to intervention. Billing Therapeutic Exercise Treatment Minutes: 12 Manual TherapyTreatment Minutes: 20 Skilled Treatment Time Minutes (timed and untimed codes): 32 Total Session Time (minutes): 32 Session Start Time : 915 Session Stop Time : 947 Darryl Cardenas PT documented in this encounter [facility] 08-31-2024 Note HNO ID: [id number] Author: DARRYL CARDENAS PT Service: ? Author Type: Physical Therapist Type: Progress Notes Filed: 08/31/2024 10:20 Note Text: Episode Visit Count: 18 Therapist That Will Accept/Oversee The Plan Of Care: Darryl Cardenas Start of Care Date: 12/19/23 Onset Date: 02/18/24 Plan of Care Certification Date: 07/26/24 Next Certification Due Date: 09/25/24 REHABILITATION AND SPORTS THERAPY PHYSICAL THERAPY TREATMENT NOTE ASSESSMENT: Jaz Dukes tolerated the session with decreased symptoms. She demonstrated improvements in neck and shoulder pain with facet work today. The patient will continue to benefit from ongoing skilled physical therapy to progress toward set goals. PLAN FOR NEXT VISIT: [place] SUBJECTIVE: Patient was doing well until the other day she had an intense, sharp pain as bad as she has had it into her L shoulder blade. She was turning and reaching behind her to her left in her office when it happened. Dull and achy today Pain: Pain Pain Level: 5 Pain Location: Shoulder - Left Description: Tightness Frequency: Intermittent OBJECTIVE MEASURES WITH LEVEL OF FUNCTION: Spine Observations L Cervical Spine Palpation Tenderness: Levator scapulae Cervical Spine ROM Cervical Extension AROM: Moderate limitation Cervical Side-Bend Left AROM: Moderate limitation TREATMENT: Therapeutic Exercise: 1: *L upper trap stretch 3x30 sec 2: *L levator stretch 3x30 sec 3: *Cervical retraction with neck elongation 3x10 4: *L facet opening self mobs 3x10, 3-5 sec holds Skilled Intervention: Patient was educated in proper exercise technique and purpose for exercises. Skilled judgment was used in selection of appropriate interventions. Provided written instruction for home exercise program to facilitate proper performance and compliance. Correct performance of therapeutic exercises was facilitated with verbal, visual, and tactile cuing. Manual Therapy: 1: L C4-5 facet opening 3x20 reps 2: L C4-5 side glides 6x20 reps; 3 in neutral, 3 in SB 3: Manual cervical traction x10 min total Skilled Intervention: Manual skills to improve joint mobility, ROM, and decrease pain. Utilized anatomy knowledge of the clinician, and assessment of patient's response to intervention. Billing Therapeutic Exercise Treatment Minutes: 15 Manual TherapyTreatment Minutes: 27 Skilled Treatment Time Minutes (timed and untimed codes): 42 Total Session Time (minutes): 42 Session Start Time : 0818 Session Stop Time : 0900 Darryl Cardenas PT [facility] 08-31-2024 History of Present illness Narrative Episode Visit Count: 18 Therapist That Will Accept/Oversee The Plan Of Care: Darryl Cardenas Start of Care Date: 12/19/23 Onset Date: 02/18/24 Plan of Care Certification Date: 07/26/24 Next Certification Due Date: 09/25/24 REHABILITATION AND SPORTS THERAPY PHYSICAL THERAPY TREATMENT NOTE ASSESSMENT: Jaz Dukes tolerated the session with decreased symptoms. She demonstrated improvements in neck and shoulder pain with facet work today. The patient will continue to benefit from ongoing skilled physical therapy to progress toward set goals. PLAN FOR NEXT VISIT: [place] SUBJECTIVE: Patient was doing well until the other day she had an intense, sharp pain as bad as she has had it into her L shoulder blade. She was turning and reaching behind her to her left in her office when it happened. Dull and achy today Pain: Pain Pain Level: 5 Pain Location: Shoulder - Left Description: Tightness Frequency: Intermittent OBJECTIVE MEASURES WITH LEVEL OF FUNCTION: Spine Observations L Cervical Spine Palpation Tenderness: Levator scapulae Cervical Spine ROM Cervical Extension AROM: Moderate limitation Cervical Side-Bend Left AROM: Moderate limitation TREATMENT: Therapeutic Exercise: 1: *L upper trap stretch 3x30 sec 2: *L levator stretch 3x30 sec 3: *Cervical retraction with neck elongation 3x10 4: *L facet opening self mobs 3x10, 3-5 sec holds Skilled Intervention: Patient was educated in proper exercise technique and purpose for exercises. Skilled judgment was used in selection of appropriate interventions. Provided written instruction for home exercise program to facilitate proper performance and compliance. Correct performance of therapeutic exercises was facilitated with verbal, visual, and tactile cuing. Manual Therapy: 1: L C4-5 facet opening 3x20 reps 2: L C4-5 side glides 6x20 reps; 3 in neutral, 3 in SB 3: Manual cervical traction x10 min total Skilled Intervention: Manual skills to improve joint mobility, ROM, and decrease pain. Utilized anatomy knowledge of the clinician, and assessment of patient's response to intervention. Billing Therapeutic Exercise Treatment Minutes: 15 Manual TherapyTreatment Minutes: 27 Skilled Treatment Time Minutes (timed and untimed codes): 42 Total Session Time (minutes): 42 Session Start Time : 0818 Session Stop Time : 0900 Darryl Cardenas PT Program_ID:[id number] Access Code: [email or web address] URL: [email or web address] Date: 08-31-2024 Prepared By: Darryl Cardenas Program Notes Exercises - Gentle Levator Scapulae Stretch - 1 x daily - 7 x weekly - 3 sets - 3 reps - Seated Upper Trapezius Stretch - 1 x daily - 7 x weekly - 3 sets - 3 reps - Seated Cervical Retraction - 1 x daily - 7 x weekly - 3 sets - 10 reps - Sternocleidomastoid Stretch - 1 x daily - 7 x weekly - 3 sets - 10 reps Patient Education - Office Posture documented in this encounter [facility] 08-29-2024 Instructions Micah High MD - 08/29/2024 2:53 PM EDT We discussed your memory concerns: - You do not have dementia, but you do have issues with short-term recall. You were able to recall some words with cues during testing. - Whether this is related to Alzheimer s or vascular issues is unclear. If you would like to know more, we can order an MRI to check for an imprint of Alzheimer s. However, this is optional and can be revisited in a year or two based on your preference. - I prescribed Aricept (donepezil) 5 mg to help with memory recall. Take this medication in the morning after breakfast. It may lower your heart rate slightly (which is fine given your current heart rate) and could decrease your appetite. Do not take it at night, as it may cause vivid dreams or keep you alert. - If you feel the medication is helping, we can consider increasing the dose to 10 mg at a future visit. If it does not help, we can discuss other options. We discussed your sleep concerns: - You have poor sleep architecture, including difficulty falling asleep, waking during the night, and REM behavior disorder (RBD). You also experience active sleep, such as thrashing and kicking during the night. - I recommend seeing a sleep medicine specialist at the [facility] for further evaluation. I will refer you for insomnia, RBD, and possible sleep apnea. - Melatonin may help with RBD; you can try this if you wish. - Continue using nasal strips at night, as they seem to help with your breathing. We discussed your arthritis: - You have arthritis in your hands, which limits some movements. Continue managing this as you have been. - I prescribed Mobic (meloxicam) for 90 days to help with arthritis pain. This will be filled as 30 tablets with two refills. We discussed your overall health and lifestyle: - Your depression appears to be well-controlled with Zoloft. Let me know if you feel you need additional support. - You are active and independent, performing daily activities, chores, and gardening without significant difficulty. Continue walking 2 miles daily to maintain your health. - You do not have any tremors, falls, or significant changes in weight or appetite. Follow-up: - Schedule a follow-up with me in one year to reassess your memory and overall health. - If you feel Aricept is helping or if you want to increase the dose, please schedule an earlier appointment. - Follow up with a sleep medicine specialist as discussed. Please reach out if you have any new concerns or questions. documented in this encounter [facility] 08-29-2024 Note HNO ID: [id number] Author: MICAH HIGH MD Service: ? Author Type: Physician Type: Progress Notes Filed: 08/29/2024 16:54 Note Text: [facility] Initial Consult Jaz Dukes is a 69 year old year old female who comes for Comprehensive Geriatric Assessment. Pt accompanied by: juancho Caregivers involved in care: No HPI: Emilee Dukes is a 69-year-old female with a history of hypercholesterolemia, presenting for evaluation of memory issues and sleep disturbances. Emilee reports difficulty with short-term memory recall, particularly under stress. She recently struggled with a word recall test, attributing her performance to stress and lack of preparation time. She was able to recall some words with multiple-choice cues. She denies difficulty remembering past events such as employment or her wedding. She has a family history of dementia, with her father exhibiting memory issues and behaviors suggestive of dementia before his , though he was not formally diagnosed with Alzheimer's disease. Her mother had a history of heart disease but no reported cognitive issues. Emilee also reports sleep disturbances, including difficulty falling asleep and frequent awakenings during the night. She uses nasal strips to improve breathing at night and occasionally takes Benadryl to aid sleep. Her reports that she thrashes and sometimes kicks him during sleep. She underwent a sleep study at [facility], which showed no evidence of sleep-related breathing disorder but noted frequent periodic limb movements resulting in arousals from sleep. She typically falls asleep on her right side and denies difficulty staying asleep once she falls asleep. She denies tremors, pain, or difficulty chewing. She reports urinary incontinence only when she has a strong urge to urinate and is unable to reach the bathroom in time. She has a diminished sense of smell, which she attributes to allergies, and has arthritis in her hands. She denies any recent falls, hearing impairment, or constipation. She reports no changes in weight or appetite and consumes alcohol occasionally, with up to two glasses of Chardonnay once a week. She is a nonsmoker. Emilee is able to perform activities of daily living independently, including bathing, dressing, cooking, and managing finances. She engages in gardening and walks two miles daily. 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 She describes her marriage as good and reports being independent in her activities. Any Family History of dementia? Father , not sure if it was AD Are you or your spouse a ? No Alzheimer Questionnaire Long-term Memory: Difficulty remembering distant events from the past like childhood, previous employment, wedding: NO Behavioral/personality: Withdrawn/Depressed: YES Crying spells: YES Anxious: YES History of aggression: NO History of irritability: YES Apathy:NO Recent changes in weight or appetite: NO Alcohol or Drug use: drinks on occasion, 2 drinks once a week Smoking? NO Sleep: Do you snore loudly (louder than talking or loud enough to be heard through closed doors)? Does not have good sleep architecture , does not get much of REM, totally was only less than 30 mins and had a ahi of 13 at that time. Do you often feel tired, fatigued, or sleepy during daytime? See above Has anyone observed you stop breathing during your sleep? See above Are you restless when you sleep at night? No Do you have problems falling a sleep? NO Do you have problems staying a sleep? NO Psychosis: Hallucinations or delusions: NO Suicidal or homicidal ideations: NO Obsessions, compulsions, or hoarding: NO Safety: Does pt know his/her address? YES What would you do if there was a fire? Get out and call 911 Are there any firearms in the home? YES If yes are they in a secure location? Secure Social History: Primary language: [place] Marital Status: Living situation: Home w/ Spouse Socially engaged? (participates in activities such as clubs, oriental orthodox, community center, sports, games, visiting friends/relatives, etc?): NO Caregiver [place] and Stress Are your feeling overwhelmed? NO Do you have concerns about your own health? NO Are you neglecting your own needs? NO Do you have financial concerns? NO Do your fear loss of employment? NO Do you have concerns about verbal/physical abuse? NO Do you feel that you are still capable of taking care of your relative? NO Are you willing to continue being in the caregiver role? NO B-ADLs: (I=independent,A=assistance,D=depe ndent) ?Bathing: I, Dressing: I, Toileting: I, Transferring:I, Continence: I, Feeding: I, (Stearns Index): 6 I-ADLs: Ability to use phone: I, Shoppin (more content not included)... [facility] 08-29-2024 History of Present illness Narrative [facility] Initial Consult Jaz Dukes is a 69 year old year old female who comes for Comprehensive Geriatric Assessment. Pt accompanied by: juancho Caregivers involved in care: No HPI: Emilee Dukes is a 69-year-old female with a history of hypercholesterolemia, presenting for evaluation of memory issues and sleep disturbances. Emilee reports difficulty with short-term memory recall, particularly under stress. She recently struggled with a word recall test, attributing her performance to stress and lack of preparation time. She was able to recall some words with multiple-choice cues. She denies difficulty remembering past events such as employment or her wedding. She has a family history of dementia, with her father exhibiting memory issues and behaviors suggestive of dementia before his , though he was not formally diagnosed with Alzheimer's disease. Her mother had a history of heart disease but no reported cognitive issues. Emilee also reports sleep disturbances, including difficulty falling asleep and frequent awakenings during the night. She uses nasal strips to improve breathing at night and occasionally takes Benadryl to aid sleep. Her reports that she thrashes and sometimes kicks him during sleep. She underwent a sleep study at [facility], which showed no evidence of sleep-related breathing disorder but noted frequent periodic limb movements resulting in arousals from sleep. She typically falls asleep on her right side and denies difficulty staying asleep once she falls asleep. She denies tremors, pain, or difficulty chewing. She reports urinary incontinence only when she has a strong urge to urinate and is unable to reach the bathroom in time. She has a diminished sense of smell, which she attributes to allergies, and has arthritis in her hands. She denies any recent falls, hearing impairment, or constipation. She reports no changes in weight or appetite and consumes alcohol occasionally, with up to two glasses of Chardonnay once a week. She is a nonsmoker. Emilee is able to perform activities of daily living independently, including bathing, dressing, cooking, and managing finances. She engages in gardening and walks two miles daily. 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 She describes her marriage as good and reports being independent in her activities. Any Family History of dementia? Father , not sure if it was AD Are you or your spouse a ? No Alzheimer Questionnaire Long-term Memory: Difficulty remembering distant events from the past like childhood, previous employment, wedding: NO Behavioral/personality: Withdrawn/Depressed: YES Crying spells: YES Anxious: YES History of aggression: NO History of irritability: YES Apathy:NO Recent changes in weight or appetite: NO Alcohol or Drug use: drinks on occasion, 2 drinks once a week Smoking? NO Sleep: Do you snore loudly (louder than talking or loud enough to be heard through closed doors)? Does not have good sleep architecture , does not get much of REM, totally was only less than 30 mins and had a ahi of 13 at that time. Do you often feel tired, fatigued, or sleepy during daytime? See above Has anyone observed you stop breathing during your sleep? See above Are you restless when you sleep at night? No Do you have problems falling a sleep? NO Do you have problems staying a sleep? NO Psychosis: Hallucinations or delusions: NO Suicidal or homicidal ideations: NO Obsessions, compulsions, or hoarding: NO Safety: Does pt know his/her address? YES What would you do if there was a fire? Get out and call 911 Are there any firearms in the home? YES If yes are they in a secure location? Secure Social History: Primary language: Djib[place]ian Marital Status: Living situation: Home w/ Spouse Socially engaged? (participates in activities such as clubs, oriental orthodox, community center, sports, games, visiting friends/relatives, etc?): NO Caregiver [place] and Stress Are your feeling overwhelmed? NO Do you have concerns about your own health? NO Are you neglecting your own needs? NO Do you have financial concerns? NO Do your fear loss of employment? NO Do you have concerns about verbal/physical abuse? NO Do you feel that you are still capable of taking care of your relative? NO Are you willing to continue being in the caregiver role? NO B-ADLs: (I=independent,A=assistance,D=depe ndent) ?Bathing: I, Dressing: I, Toileting: I, Transferring:I, Continence: I, Feeding: I, (Stearns Index): 6 I-ADLs: Ability to use phone: I, Shopping: I, Cooking: I, Housekeeping: I, Laundry: I, Transportation:I, Medications: {I, Handle Finances: I. ([place] scale): 8 PMHx: PAST MEDICAL HISTORY Diagnosis Date Abnormal glandular Papanicolaou smear of cervix 04/23/2005 Abn. 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 Hypertension Internal hemorrhoids without mention of complication Irregular menstrual cycle perimenopausal bleeding Snoring PSHx: PAST SURGICAL HISTORY Procedure Laterality Date BIOPSY BREAST OPEN INCISIONAL 11/28/2000 left breast COLONOSCOPY FLX DX W/COLLJ SPEC WHEN PFRMD 05/17/2006 COLONOSCOPY FLX DX W/COLLJ SPEC WHEN PFRMD 06/16/2017 Colonoscopy COLPOSCOPY CERVIX UPPER/ADJACENT VAGINA 07/15/2000 Colposcopy CONIZATION CERVIX W/WO D&C RPR ELTRD EXC 08/03/2000 LEEP-Cervix LIG/TRNSXJ FLP TUBE ABDL/VAG APPR UNI/BI 05/27/1992 Tubal ligation, BPS OTHER MOHS- removal of squamous cells PAST SURGICAL HISTORY OF 1981 Broken Nose Repair PAST SURGICAL HISTORY OF 09/17/2004 EMB PAST SURGICAL HISTORY OF 09/2004 BONE DENSITTY SKIN BX, 1 LESION 12/15/2000 basal cell CA, on face SKIN EXCISION 12/23/2021 excision skin cyst lower back TONSILLECTOMY PRIMARY/SECONDARY <AGE 11 Tonsillectomy Home Meds: Prior to Admission medications : Medication minoxidil (LONITEN) 2.5 mg tablet, Sig Take 2.5 mg by mouth once daily. Taking 1/4 tablet daily, Start Date 06/05/24, End Date , Taking? Yes, Authorizing Provider Provider, [facility] Medication sertraline (ZOLOFT) 50 mg tablet, Sig Take 1 tablet by mouth once daily. Start with half a pill for a week and then go to a full pill, Start Date 06/05/24, End Date , Taking? , Authorizing Provider Micah High MD Medication finasteride (PROPECIA) 1 mg tablet, Sig Take 1 tablet by mouth every afternoon., Start Date 09/20/23, End Date , Taking? , Authorizing Provider Provider, [facility] Medication tacrolimus (PROTOPIC) 0.1 % ointment, Sig Apply to affected area two times a day., Start Date 07/25/23, End Date , Taking? , Authorizing Provider Ladi Almanza APRN.DIE TECHNICIAN Medication lisinopril (ZESTRIL) 5 mg tablet, Sig Take 1 tablet by mouth once daily., Start Date 06/20/23, End Date , Taking? , Authorizing Provider Nilda Walton APRN.DIE TECHNICIAN Medication ezetimibe (ZETIA) 10 mg tablet, Sig take 1 tablet daily, Start Date 04/11/23, End Date , Taking? , Authorizing Provider Ladi Almanza APRN.DIE TECHNICIAN Medication fluticasone (FLONASE) 50 mcg/actuation nasal spray, Sig Use 2 Sprays in each nostril once daily. Rinse mouth after use., Start Date 02/08/23, End Date , Taking? , Authorizing Provider Quiana Alvarez APRN.SILVERING APPLICATOR Other OTC med/supplements: None Medication Review: - ANY HIGH RISK MEDICATIONS (STOPP CRITERIA): NO ALLERGIES Allergen Reactions Allergen Ext-Venom-* Mold Propolis (Bee Glue) Review of Systems Difficulty chew/swallow: No Pain: No Tremor: No Incontinence - During the last 3 months did you leak urine? NO - Type?: mixed incontinence Constipation/Change in bowel habits: YES Vision No vision problems reported Follows with veterinary assistant technician:YES Hearing - Hearing aid : No hearing impairment Falls: .: Falls in the last 12 months: None. If + falls: Physical Exam: General: Well-nourished, kempt Ambulatory: without assistance Mobility Aid: Wheelchair Head: Normocephalic Eyes: conjunctiva/corneas normal, EOMI Ears: R TM - clear with good landmarks, nl light reflex, L TM - clear with good landmarks, nl light reflex Nose: clear Oropharynx: moist without lesions, teeth in good repair Neck: supple and no adenopathy Cardio: regular rate and rhythm Pulmonary: Lungs clear to auscultation bilaterally Extremities: Extremities normal. No deformities, edema, or skin discoloration. Musculoskeletal: Normal Gait Neuro:Deep Tendon reflexes :2/4 , Both Cranial nerves Extremities: Extremities normal. No deformities, edema, or skin discoloration. Musculoskeletal: No rigidity, tremor or bradykinesia is noted. Rhomberg: Negative. Neuro:Deep Tendon reflexes :2/4 , Both Lurias test: was normal. A tandem gait testing was normal. Was able to stand on either leg for 10 seconds without any issues. Gait: Unsteadiness: NO Shuffling: NO Tremors: NO Slowness: NO [place] Cognitive Exam (MOCA): CDR Dementia Scale 1) Subjective Memory Loss: YES 2) Measurable Memory Loss: YES 3) IADLs: NO 4) BADLs: NO Driving Safely: Yes > 50% 6) Medications: No Level: CDR 5. Depression Screening/Evaluation: PHQ9: 08/03 Labs: Reviewed in [facility]:None available today Assessment and Plan: I. Medical /Mental Status/Decision Making Capacity 1-Mentation # Subjective memory loss with measurable memory loss with MOCA 30 . Patient does not have functional impairment. Etiology is unclear, likely mixed, vascular and neurodegenerative. Anxiety and depression, along with mild sleep issues including disrupted sleep architecture may be contributing. She had sleep study which showed AHI 13 in REM but over all was less than 5. REM stage was very short and less than 30 mins. She does have REM behaviors, and PLMs, too. Patient exhibits issues with short-term recall, but no signs of dementia. Family history includes dementia in the father, though not formally diagnosed as Alzheimer's disease. Patient is able to perform ADLs and IADLs independently. Previous tests for vitamin B12 and thyroid function are tez CDR .5 FAST 4 Patient and family are looking for preservation of function. Plan: - Discussed the option of an MRI to check for Alzheimer's imprint; patient is hesitant due to the implications of knowing the results. - Prescribed Aricept 5 mg to be taken in the morning after breakfast to aid with memory recall. Discussed potential side effects including bradycardia and decreased appetite. 2-Mobility -- - No conerns with Mobility 3-Medications and chronic medical conditions Hyperlipidemia is controlled on Zetia. Spent an hour with the patient. REFERRALS AND RECOMMENDATIONS 1. Discussed the cognitive benefits of memory exercises and reviewed examples 2. Discussed the cognitive benefits of physical exercise and socialization Voice recognition software was used to compose this office note. Please excuse any unintended typographical errors. Micah High MD [facility] documented in this encounter [facility] 08-21-2024 Note HNO ID: [id number] Author: MICAH HIGH MD Service: ? Author Type: Physician Type: Progress Notes Filed: 08/21/2024 15:04 Note Text: Reason for Visit Follow up HPI Emilee Dukes is a 69-year-old female presenting for a follow-up visit. Emilee reports feeling a lot better since her last visit. She has been dealing with the emotional and logistical challenges of managing a friend's estate, which included selling a condo and handling financial matters. This process has been stressful and has contributed to her emotional distress. Emilee has a history of anxiety, the stress of managing the estate. She reports that she started drinking more alcohol to cope with the emotional pain but has since reduced her alcohol consumption. She has not yet sought counseling but plans to do so in the future. She finds solace in walking 2 miles a day with her dogs, which she reports helps her maintain mental stability. She is also continuing physical therapy, which she finds beneficial, although she is uncertain about the effectiveness of acupuncture treatments she recently received. Social History Tobacco Use Smoking status: Never Smokeless tobacco: Never Vaping Use Vaping status: Never Used Substance Use Topics Alcohol use: Yes Alcohol/week: 14.0 standard drinks of alcohol Types: 14 Glasses of Wine (5oz) per week Drug use: No Past medical history, appointments, medications, allergies reviewed. Pertinent Lab/Diagnostic Studies are reviewed and discussed today Current Outpatient Medications: LORazepam (ATIVAN) 0.5 mg sertraline (ZOLOFT) 50 mg tablet finasteride (PROPECIA) 1 mg tablet tacrolimus (PROTOPIC) 0.1 % ointment lisinopril (ZESTRIL) 5 mg tablet ezetimibe (ZETIA) 10 mg tablet fluticasone (FLONASE) 50 mcg/actuation nasal spray Health Maintenance Advance Directive Discussion Medicare Advantage Annual Wellness Visit Covid-19 Vaccine( season) Mammogram Screening@ Review Of Systems Psychiatric: (+) excessive crying Physical Exam BP 120/70 Pulse 72 Temp 36.3 ?C (97.4 ?F) (Temporal) Resp 16 Wt 57.6 kg (127 lb) LMP 12/12/2009 BMI 24.00 kg/m? GENERAL: NAD, alert and oriented SKIN: unremarkable, no rash or skin lesions. HEAD: normocephalic EYES: PERRLA, EOMI, conjunctiva clear EARS: external ears normal, canals clear, TM's normal. LUNGS: Clear to auscultation bilaterally, no wheezes/rhonchi/rales. HEART: Regular rate and rhythm, no murmurs. No ectopy. EXTREMITIES: Normal, No deformities, No skin discoloration, No edema. NEURO: Awake, alert and oriented x3, cranial nerves II-XII grossly intact, normal gait, no involuntary motions Assessment and Plan 1. Essential hypertension (I10) Clinically stable. Continue current management. 2. Panic attack (F41.0) Claustrophobia (F40.240) Experiencing significant emotional distress due to recent discovery of 's past infidelity. Patient has been managing multiple stressors, including the settlement of a friend's estate and past family issues. No current panic attacks reported, but underlying anxiety and emotional turmoil are evident. - Recommended counseling to address emotional distress and facilitate healing. - Encouraged patient to continue physical activity, such as walking, to help manage stress. 3. Breast cancer screening by mammogram (Z12.31) Ordered mammogram. 4. Cervicalgia (M54.2) Undergoing physical therapy with noted improvement. Recent acupuncture session performed by therapist. Continue physical therapy. Voice recognition software was used to compose this office note. Please excuse any unintended typographical errors. Recording using [employer] software for draft documentation of the visit was discussed with the patient/authorized customer contact representative; all questions welcomed and answered. Patient/authorized customer contact representative agreed to proceed Micah High MD [facility] 08-21-2024 History of Present illness Narrative Reason for Visit Follow up HPI Emilee Dukes is a 69-year-old female presenting for a follow-up visit. Emilee reports feeling a lot better since her last visit. She has been dealing with the emotional and logistical challenges of managing a friend's estate, which included selling a condo and handling financial matters. This process has been stressful and has contributed to her emotional distress. Emilee has a history of anxiety, the stress of managing the estate. She reports that she started drinking more alcohol to cope with the emotional pain but has since reduced her alcohol consumption. She has not yet sought counseling but plans to do so in the future. She finds solace in walking 2 miles a day with her dogs, which she reports helps her maintain mental stability. She is also continuing physical therapy, which she finds beneficial, although she is uncertain about the effectiveness of acupuncture treatments she recently received. Social History Tobacco Use Smoking status: Never Smokeless tobacco: Never Vaping Use Vaping status: Never Used Substance Use Topics Alcohol use: Yes Alcohol/week: 14.0 standard drinks of alcohol Types: 14 Glasses of Wine (5oz) per week Drug use: No Past medical history, appointments, medications, allergies reviewed. Pertinent Lab/Diagnostic Studies are reviewed and discussed today Current Outpatient Medications: LORazepam (ATIVAN) 0.5 mg sertraline (ZOLOFT) 50 mg tablet finasteride (PROPECIA) 1 mg tablet tacrolimus (PROTOPIC) 0.1 % ointment lisinopril (ZESTRIL) 5 mg tablet ezetimibe (ZETIA) 10 mg tablet fluticasone (FLONASE) 50 mcg/actuation nasal spray Health Maintenance Advance Directive Discussion Medicare Advantage Annual Wellness Visit Covid-19 Vaccine( season) Mammogram Screening@ Review Of Systems Psychiatric: (+) excessive crying Physical Exam BP 120/70 Pulse 72 Temp 36.3 C (97.4 F) (Temporal) Resp 16 Wt 57.6 kg (127 lb) LMP 12/12/2009 BMI 24.00 kg/m GENERAL: NAD, alert and oriented SKIN: unremarkable, no rash or skin lesions. HEAD: normocephalic EYES: PERRLA, EOMI, conjunctiva clear EARS: external ears normal, canals clear, TM's normal. LUNGS: Clear to auscultation bilaterally, no wheezes/rhonchi/rales. HEART: Regular rate and rhythm, no murmurs. No ectopy. EXTREMITIES: Normal, No deformities, No skin discoloration, No edema. NEURO: Awake, alert and oriented x3, cranial nerves II-XII grossly intact, normal gait, no involuntary motions Assessment and Plan 1. Essential hypertension (I10) Clinically stable. Continue current management. 2. Panic attack (F41.0) Claustrophobia (F40.240) Experiencing significant emotional distress due to recent discovery of 's past infidelity. Patient has been managing multiple stressors, including the settlement of a friend's estate and past family issues. No current panic attacks reported, but underlying anxiety and emotional turmoil are evident. - Recommended counseling to address emotional distress and facilitate healing. - Encouraged patient to continue physical activity, such as walking, to help manage stress. 3. Breast cancer screening by mammogram (Z12.31) Ordered mammogram. 4. Cervicalgia (M54.2) Undergoing physical therapy with noted improvement. Recent acupuncture session performed by therapist. Continue physical therapy. Voice recognition software was used to compose this office note. Please excuse any unintended typographical errors. Recording using [employer] software for draft documentation of the visit was discussed with the patient/authorized customer contact representative; all questions welcomed and answered. Patient/authorized customer contact representative agreed to proceed Micah High MD documented in this encounter [facility] 08-17-2024 Note HNO ID: [id number] Author: DARRYL CARDENAS PT Service: ? Author Type: Physical Therapist Type: Progress Notes Filed: 08/17/2024 15:58 Note Text: Episode Visit Count: 17 Therapist That Will Accept/Oversee The Plan Of Care: Darryl Cardenas Start of Care Date: 12/19/23 Onset Date: 02/18/24 Plan of Care Certification Date: 07/26/24 Next Certification Due Date: 09/25/24 REHABILITATION AND SPORTS THERAPY PHYSICAL THERAPY TREATMENT NOTE ASSESSMENT: Jaz Dukes tolerated the session with decreased symptoms and expected muscle soreness. She demonstrated improvements in L sided levator pain. The patient will continue to benefit from ongoing skilled physical therapy to progress toward set goals. Current Frequency: 1x every other week Duration: 4 weeks Total Number of Visits Planned: 2 Planned Treatment Interventions: Therapeutic exercise (20148), Neuromuscular re-education (11387), Manual therapy (67928), Therapeutic activities (66635), Self-residential management (55992), Patient/Family/Caregiver Education, Body Mechanics Training PLAN FOR NEXT VISIT: assess carry voer from needling SUBJECTIVE: Both frequency and intensity are down with her pain, but it is still present most days. Prolonged activity brings the symptoms on, nothing specific. Functional Limitations: bending, heavy exertion, lifting, physical activities Pain: Pain Pain Level: 3 Pain Location: Shoulder - Left Description: Tightness Frequency: Intermittent OBJECTIVE MEASURES WITH LEVEL OF FUNCTION: Spine Observations L Cervical Spine Palpation Tenderness: Levator scapulae Cervical Spine ROM Cervical Flexion AROM: Normal Cervical Extension AROM: Normal Cervical Side-Bend Right AROM: Normal Cervical Side-Bend Left AROM: Minimal limitation Cervical Rotation Right AROM: Normal Cervical Rotation Left AROM: Normal TREATMENT: Manual Therapy: 1: CFM to L levator 2: Passive stretching of levator 3x30 sec with gentle STM between bouts Dry Needling: (1) 50 mm needle to L levator scapulae with pistoning and fanning (1 needle in, 1 needle out; patient notes appropriate soreness post session, some reproduction at lower levels of stabbing pain during procedure) Skilled Intervention: Manual skills to improve joint mobility, ROM, and decrease pain. Utilized anatomy knowledge of the clinician, and assessment of patient's response to intervention. Billing Manual TherapyTreatment Minutes: 29 Skilled Treatment Time Minutes (timed and untimed codes): 29 Total Session Time (minutes): 29 Session Start Time : 1116 Session Stop Time : 1145 Darryl Cardenas PT [facility] 08-17-2024 History of Present illness Narrative Episode Visit Count: 17 Therapist That Will Accept/Oversee The Plan Of Care: Darryl Cardenas Start of Care Date: 12/19/23 Onset Date: 02/18/24 Plan of Care Certification Date: 07/26/24 Next Certification Due Date: 09/25/24 REHABILITATION AND SPORTS THERAPY PHYSICAL THERAPY TREATMENT NOTE ASSESSMENT: Jaz Dukes tolerated the session with decreased symptoms and expected muscle soreness. She demonstrated improvements in L sided levator pain. The patient will continue to benefit from ongoing skilled physical therapy to progress toward set goals. Current Frequency: 1x every other week Duration: 4 weeks Total Number of Visits Planned: 2 Planned Treatment Interventions: Therapeutic exercise (95409), Neuromuscular re-education (68505), Manual therapy (35576), Therapeutic activities (07444), Self-residential management (60798), Patient/Family/Caregiver Education, Body Mechanics Training PLAN FOR NEXT VISIT: assess carry voer from needling SUBJECTIVE: Both frequency and intensity are down with her pain, but it is still present most days. Prolonged activity brings the symptoms on, nothing specific. Functional Limitations: bending, heavy exertion, lifting, physical activities Pain: Pain Pain Level: 3 Pain Location: Shoulder - Left Description: Tightness Frequency: Intermittent OBJECTIVE MEASURES WITH LEVEL OF FUNCTION: Spine Observations L Cervical Spine Palpation Tenderness: Levator scapulae Cervical Spine ROM Cervical Flexion AROM: Normal Cervical Extension AROM: Normal Cervical Side-Bend Right AROM: Normal Cervical Side-Bend Left AROM: Minimal limitation Cervical Rotation Right AROM: Normal Cervical Rotation Left AROM: Normal TREATMENT: Manual Therapy: 1: CFM to L levator 2: Passive stretching of levator 3x30 sec with gentle STM between bouts Dry Needling: (1) 50 mm needle to L levator scapulae with pistoning and fanning (1 needle in, 1 needle out; patient notes appropriate soreness post session, some reproduction at lower levels of stabbing pain during procedure) Skilled Intervention: Manual skills to improve joint mobility, ROM, and decrease pain. Utilized anatomy knowledge of the clinician, and assessment of patient's response to intervention. Billing Manual TherapyTreatment Minutes: 29 Skilled Treatment Time Minutes (timed and untimed codes): 29 Total Session Time (minutes): 29 Session Start Time : 1116 Session Stop Time : 1145 Darryl Cardenas PT documented in this encounter [facility] 07-26-2024 Note HNO ID: [id number] Author: DARRYL CARDENAS PT Service: ? Author Type: Physical Therapist Type: Progress Notes Filed: 07/26/2024 14:23 Note Text: Episode Visit Count: 16 Therapist That Will Accept/Oversee The Plan Of Care: Darryl Cardenas Start of Care Date: 12/19/23 Onset Date: 02/18/24 Plan of Care Certification Date: 07/26/24 Next Certification Due Date: 09/25/24 REHABILITATION AND SPORTS THERAPY PHYSICAL THERAPY PROGRESS REPORT PLAN OF CARE UPDATE: Assessment: Jaz Dukes demonstrates moderate improvement in bending, heavy exertion, lifting, physical activities, and use hand with arm at shoulder level. The patient has progressed toward goals. Patient continues to present with impairments in ADL's, overall function, range of motion, symptom management, and tissue tenderness that interfere with . Current prognosis is Excellent due to: current objective clinical presentation, good overall health status, positive past response to therapy, within-session changes, good support system/ coping skills . The patient will benefit from continued skilled therapy services to meet the updated goals for this plan of care as noted below. Goals updated on 07/26/2024. Goals for Episode of Care: established 12/19/23 [place] in home exercise program. Met Patient will decrease pain rating by 2 points to meet minimal clinical important difference for numeric pain rating scale. Partially met Patient will increase active ROM of cervical spine to WNL to allow pt to to improve performance of ADLs. Progressing Patient will demonstrate increase in L knee strength to 4+/5 during manual muscle testing in order to improve function for basic self-care tasks, home management tasks, and prior functional tasks. Progressing Sleep throughout the night without pain/symptoms. Progressing Time Frame for Goals and Treatment : 09/06/24 Planned Interventions, Frequency, and Duration: 1x every other week, 4 weeks Total Number of Visits Planned: 2 Patient to be seen for Therapeutic exercise (86665), Neuromuscular re-education (73121), Manual therapy (80211), Therapeutic activities (37046), Self-residential management (64865), Patient/Family/Caregiver Education, Body Mechanics Training PLAN FOR NEXT VISIT: Dry needling to levator SUBJECTIVE: Patient was doing well for awhile, and almost thought she could cancel this appointment. In the last week her symptoms returned. 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 She would like to try dry needling next visit, she states she has too much to get done today and is hesitant with the chance of soreness. Pain: Pain Pain Level: 4 Pain Location: Shoulder - Left Description: Tightness, Stabbing Frequency: Intermittent PROMIS Scales 07/21/2024 05/28/2024 04/11/2024 Higher is Better Phys Func - T Score 51 (within normal limits) 50 (within normal limits) 52 (within normal limits) Phys Func - Percentile 54 50 58 Self-Eff Symptom - T Score 48 (Average) 41 (Average) 46 (Average) Self-Eff Symptom - Percentile 42 18 34 03/26/2024 02/11/2020 01/14/2020 Lower is Better Pain Interference - T Score 53 (within normal limits) 56 (mild) 62 (moderate) Pain Interference - Percentile 38 27 12 T-scores: mean of general population = 50. 5 points is clinically meaningfully difference Percentiles provide an indication of how the patient's score ranks in relation to the general population. Higher percentile rankings indicate better function/quality of life. 50th percentile is the average of the general population and indicates half of respondents had a worse score. OBJECTIVE MEASURES WITH LEVEL OF FUNCTION: Spine Observations L Cervical Spine Palpation Tenderness: Levator scapulae Cervical Spine ROM Cervical Flexion AROM: Normal Cervical Extension AROM: Normal Cervical Side-Bend Right AROM: Minimal limitation Cervical Side-Bend Left AROM: Minimal limitation Cervical Rotation Right AROM: Normal Cervical Rotation Left AROM: Normal TREATMENT: Manual Therapy: 1: Stripping to L upper trap 2: CFM to L levator and rhomboids with push to tolerance 3: Manual cervical traction x5 min 4: Passive stretching of levator 3x30 sec with gentle STM between bouts 5: Objective measures obtained Skilled Intervention: Manual skills to improve joint mobility, ROM, and decrease pain. Utilized anatomy knowledge of the clinician, and assessment of patient's response to intervention. Billing Manual TherapyTreatment Minutes: 39 Skilled Treatment Time Minutes (timed and untimed codes): 39 Total Session Time (minutes): 39 Session Start Time : 1233 Session Stop Time : 1312 Darryl Cardenas PT [facility] 06-19-2024 History of Present illness Narrative Program_ID:[id number] Access Code: [email or web address] URL: [email or web address] Date: 06-19-2024 Prepared By: Darryl Cardenas Program Notes Exercises - Gentle Levator Scapulae Stretch - 1 x daily - 7 x weekly - 3 sets - 3 reps - Seated Upper Trapezius Stretch - 1 x daily - 7 x weekly - 3 sets - 3 reps - Seated Scapular Retraction - 1 x daily - 7 x weekly - 3 sets - 10 reps - Active Straight Leg Raise with Quad Set - 1-2 x daily - 7 x weekly - 2 sets - 5-10 reps - Sidelying Hip Abduction - 1-2 x daily - 7 x weekly - 2 sets - 10 reps - Shoulder extension with resistance - Neutral - 1 x daily - 7 x weekly - 2-3 sets - 10 reps - Shoulder External Rotation and Scapular Retraction with Resistance - 1 x daily - 7 x weekly - 2-3 sets - 10 reps - Clamshell - 2 x daily - 7 x weekly - 2 sets - 10 reps - Seated Long Arc Quad - 2 x daily - 7 x weekly - 2 sets - 10 reps - Step Up - 1 x daily - 7 x weekly - 2 sets - 10 reps - Mini Squat with Counter Support - 1 x daily - 7 x weekly - 2 sets - 10 reps Patient Education - Office Posture Episode Visit Count: 15 Therapist That Will Accept/Oversee The Plan Of Care: Darryl Cardenas Start of Care Date: 12/19/23 Onset Date: 02/18/24 Plan of Care Certification Date: 06/06/24 Next Certification Due Date: 07/06/24 Patient Identified by Name and Date of : Yes REHABILITATION AND SPORTS THERAPY PHYSICAL THERAPY TREATMENT NOTE ASSESSMENT: Jaz Dukes tolerated the session with decreased symptoms. She demonstrated decreased pain and symptoms in left levator area at end of session. The patient will continue to benefit from ongoing skilled physical therapy to progress toward set goals. PLAN FOR NEXT VISIT: Manual for symptom modulation, see if office setting has changed since last visit to decrease shoulder sx SUBJECTIVE: Patient feels pressure and pain in shoulders today, but otherwise doing good. Pain: Pain Pain Level: 6 Pain Location: Shoulder - Left Description: Pressure Frequency: Continuous OBJECTIVE MEASURES WITH LEVEL OF FUNCTION: Spine Observations L Cervical Spine Palpation Tenderness: Levator scapulae TREATMENT: Manual Therapy: 1: Stripping to L upper trap 2: CFM to L levator and rhomboids with push to tolerance 3: Suboccipital Release x3 min 4: Passive stretching of levator 3x30 sec with gentle STM between bouts Skilled Intervention: Manual skills to improve joint mobility, ROM, and decrease pain. Utilized anatomy knowledge of the therapist, and assessment of patient's response to intervention. Self-Group Home Management: 1: Pt given handout for office setup tips, educated on height of desk and chair, shoulder retraction, no slumping, comfortable chair with backing, tricep stretching, frequent standing breaks Skilled Intervention: Skilled judgment in the selection of proper modification for activity of daily living/home management based on clinical presentation, deficits, and needs. Educated the patient regarding recommendations and provided written instruction to facilitate compliance. Provided written instruction for activities of daily living techniques to facilitate proper performance and compliance. Reviewed and educated patient on additions/changes for home program as noted above with an (*). Billing Manual TherapyTreatment Minutes: 30 Self-Care/Home Management Treatment Minutes: 5 Skilled Treatment Time Minutes (timed and untimed codes): 35 Total Session Time (minutes): 35 Session Start Time : 1100 Session Stop Time : 1135 SUMIT Nieves PTA Supervising therapist was present and guided the care of the patient for the entire session on this date. All documentation was reviewed and agreed upon. Darryl Cardenas PT documented in this encounter [facility] 06-19-2024 Note HNO ID: [id number] Author: DARRYL CARDENAS PT Service: ? Author Type: Physical Therapist Type: Progress Notes Filed: 06/20/2024 10:47 Note Text: Episode Visit Count: 15 Therapist That Will Accept/Oversee The Plan Of Care: Darryl Cardenas Start of Care Date: 12/19/23 Onset Date: 02/18/24 Plan of Care Certification Date: 06/06/24 Next Certification Due Date: 07/06/24 Patient Identified by Name and Date of : Yes REHABILITATION AND SPORTS THERAPY PHYSICAL THERAPY TREATMENT NOTE ASSESSMENT: Jaz Dukes tolerated the session with decreased symptoms. She demonstrated decreased pain and symptoms in left levator area at end of session. The patient will continue to benefit from ongoing skilled physical therapy to progress toward set goals. PLAN FOR NEXT VISIT: Manual for symptom modulation, see if office setting has changed since last visit to decrease shoulder sx SUBJECTIVE: Patient feels pressure and pain in shoulders today, but otherwise doing good. Pain: Pain Pain Level: 6 Pain Location: Shoulder - Left Description: Pressure Frequency: Continuous OBJECTIVE MEASURES WITH LEVEL OF FUNCTION: Spine Observations L Cervical Spine Palpation Tenderness: Levator scapulae TREATMENT: Manual Therapy: 1: Stripping to L upper trap 2: CFM to L levator and rhomboids with push to tolerance 3: Suboccipital Release x3 min 4: Passive stretching of levator 3x30 sec with gentle STM between bouts Skilled Intervention: Manual skills to improve joint mobility, ROM, and decrease pain. Utilized anatomy knowledge of the therapist, and assessment of patient's response to intervention. Self-Group Home Management: 1: Pt given handout for office setup tips, educated on height of desk and chair, shoulder retraction, no slumping, comfortable chair with backing, tricep stretching, frequent standing breaks Skilled Intervention: Skilled judgment in the selection of proper modification for activity of daily living/home management based on clinical presentation, deficits, and needs. Educated the patient regarding recommendations and provided written instruction to facilitate compliance. Provided written instruction for activities of daily living techniques to facilitate proper performance and compliance. Reviewed and educated patient on additions/changes for home program as noted above with an (*). Billing Manual TherapyTreatment Minutes: 30 Self-Care/Home Management Treatment Minutes: 5 Skilled Treatment Time Minutes (timed and untimed codes): 35 Total Session Time (minutes): 35 Session Start Time : 1100 Session Stop Time : 1135 SUMIT Nieves PTA Supervising therapist was present and guided the care of the patient for the entire session on this date. All documentation was reviewed and agreed upon. Darryl Cardenas, PT [facility] 06-11-2024 History of Present illness Narrative Episode Visit Count: 14 Therapist That Will Accept/Oversee The Plan Of Care: Darryl Cardenas Start of Care Date: 12/19/23 Onset Date: 02/18/24 Plan of Care Certification Date: 06/06/24 Next Certification Due Date: 07/06/24 Patient Identified by Name and Date of : Yes REHABILITATION AND SPORTS THERAPY PHYSICAL THERAPY TREATMENT NOTE ASSESSMENT: Jaz Dukes tolerated the session with decreased symptoms. She demonstrated improvements in decreased tightness in L neck. The patient will continue to benefit from ongoing skilled physical therapy to progress toward set goals. PLAN FOR NEXT VISIT: Manual for symptom modulation, may try to trouble shoot computer set up to decrease pain on irritated tissue SUBJECTIVE: Patient reports feeling better this best week. Patient reports more of a dull, localized pain, no sharp pain in the past week. Pain: Pain Pain Level: 2 Pain Location: Neck - Left, Shoulder - Left Description: Tightness, Dull Frequency: Continuous OBJECTIVE MEASURES WITH LEVEL OF FUNCTION: Spine Observations L Cervical Spine Palpation Tenderness: Levator scapulae Pain to palpate L levator TREATMENT: Manual Therapy: 1: Stripping to L upper trap 2: CFM to L levator and rhomboids with push to tolerance 3: Suboccipital Release x3 min 4: Passive stretching of levator 3x30 sec with gentle STM between bouts Skilled Intervention: Manual skills to improve joint mobility, ROM, and decrease pain. Utilized anatomy knowledge of the therapist, and assessment of patient's response to intervention. Billing Manual TherapyTreatment Minutes: 30 Skilled Treatment Time Minutes (timed and untimed codes): 30 Total Session Time (minutes): 30 Session Start Time : 1132 Session Stop Time : 1202 SMUIT Nieves PT documented in this encounter [facility] 06-11-2024 Note HNO ID: [id number] Author: DARRYL CARDENAS PT Service: ? Author Type: Physical Therapist Type: Progress Notes Filed: 06/11/2024 15:50 Note Text: Episode Visit Count: 14 Therapist That Will Accept/Oversee The Plan Of Care: Darryl Cardenas Start of Care Date: 12/19/23 Onset Date: 02/18/24 Plan of Care Certification Date: 06/06/24 Next Certification Due Date: 07/06/24 Patient Identified by Name and Date of : Yes REHABILITATION AND SPORTS THERAPY PHYSICAL THERAPY TREATMENT NOTE ASSESSMENT: Jaz Dukes tolerated the session with decreased symptoms. She demonstrated improvements in decreased tightness in L neck. The patient will continue to benefit from ongoing skilled physical therapy to progress toward set goals. PLAN FOR NEXT VISIT: Manual for symptom modulation, may try to trouble shoot computer set up to decrease pain on irritated tissue SUBJECTIVE: Patient reports feeling better this best week. Patient reports more of a dull, localized pain, no sharp pain in the past week. Pain: Pain Pain Level: 2 Pain Location: Neck - Left, Shoulder - Left Description: Tightness, Dull Frequency: Continuous OBJECTIVE MEASURES WITH LEVEL OF FUNCTION: Spine Observations L Cervical Spine Palpation Tenderness: Levator scapulae Pain to palpate L levator TREATMENT: Manual Therapy: 1: Stripping to L upper trap 2: CFM to L levator and rhomboids with push to tolerance 3: Suboccipital Release x3 min 4: Passive stretching of levator 3x30 sec with gentle STM between bouts Skilled Intervention: Manual skills to improve joint mobility, ROM, and decrease pain. Utilized anatomy knowledge of the therapist, and assessment of patient's response to intervention. Billing Manual TherapyTreatment Minutes: 30 Skilled Treatment Time Minutes (timed and untimed codes): 30 Total Session Time (minutes): 30 Session Start Time : 1132 Session Stop Time : 1202 SUMIT Nieves PT [facility] 06-09-2024 Telephone encounter Note Lipids are almost at target. Glucose is a little on the higher side. Kidney numbers are normal. RegardsMicah MD Phoned patient went over results, notes from Dr High with understanding. [facility] 06-09-2024 Miscellaneous Notes Lipids are almost at target. Glucose is a little on the higher side. Kidney numbers are normal. RegardsMicah MD Phoned patient went over results, notes from Dr High with understanding. documented in this encounter [facility] 06-06-2024 Note HNO ID: [id number] Author: DARRYL CARDENAS PT Service: ? Author Type: Physical Therapist Type: Progress Notes Filed: 06/06/2024 10:30 Note Text: Episode Visit Count: 13 Therapist That Will Accept/Oversee The Plan Of Care: Darryl Cardenas Start of Care Date: 12/19/23 Onset Date: 02/18/24 Plan of Care Certification Date: 06/06/24 Next Certification Due Date: 07/06/24 REHABILITATION AND SPORTS THERAPY PHYSICAL THERAPY PROGRESS REPORT PLAN OF CARE UPDATE: Assessment: Jaz Dukes demonstrates difficulty with computer work and sitting. The patient has progressed toward goals. Patient continues to present with impairments in ADL's, overall function, range of motion, symptom management, and tissue tenderness that interfere with sitting, working . Current prognosis is Excellent due to: current objective clinical presentation, good overall health status, positive past response to therapy, within-session changes, good support system/ coping skills . The patient will benefit from continued skilled therapy services to meet the updated goals for this plan of care as noted below. Goals updated on 06/04/2024. Goals for Episode of Care: established 12/19/23 [place] in home exercise program. Met Patient will decrease pain rating by 2 points to meet minimal clinical important difference for numeric pain rating scale. Partially met Patient will increase active ROM of cervical spine and L knee to WNL to allow pt to to improve performance of ADLs. Progressing Patient will demonstrate increase in L knee strength to 4+/5 during manual muscle testing in order to improve function for basic self-care tasks, home management tasks, and prior functional tasks. Progressing Sleep throughout the night without pain/symptoms. Progressing Time Frame for Goals and Treatment : 07/14/24 Planned Interventions, Frequency, and Duration: 1x/week, 4 weeks Total Number of Visits Planned: 4 Patient to be seen for Therapeutic exercise (07250), Neuromuscular re-education (09762), Manual therapy (80847), Therapeutic activities (99828), Self-residential management (59948), Patient/Family/Caregiver Education, Body Mechanics Training PLAN FOR NEXT VISIT: Manual for symptom modulation, may try to trouble shoot computer set up to decrease pain on irritated tissue SUBJECTIVE: Patient did really well while on vacation. No pain or symptoms, but she also spent zero time at a computer. She notes that since she is back and at the computer a lot, she has had the pain returning. Functional Limitations: sitting, working Pain: Pain Pain Level: 0 Pain Location: Neck - Left, Shoulder - Left Description: Tightness, Aching, Sore Frequency: Continuous PROMIS Scales 05/28/2024 04/11/2024 03/06/2024 Higher is Better Phys Func - T Score 50 (within normal limits) 52 (within normal limits) 52 (within normal limits) Phys Func - Percentile 50 58 58 Self-Eff Symptom - T Score 41 (Average) 46 (Average) 46 (Average) Self-Eff Symptom - Percentile 18 34 34 03/26/2024 02/11/2020 01/14/2020 Lower is Better Pain Interference - T Score 53 (within normal limits) 56 (mild) 62 (moderate) Pain Interference - Percentile 38 27 12 T-scores: mean of general population = 50. 5 points is clinically meaningfully difference Percentiles provide an indication of how the patient's score ranks in relation to the general population. Higher percentile rankings indicate better function/quality of life. 50th percentile is the average of the general population and indicates half of respondents had a worse score. OBJECTIVE MEASURES WITH LEVEL OF FUNCTION: Spine Observations L Cervical Spine Palpation Tenderness: Levator scapulae, Comments Comments: rhomboids Cervical Spine ROM Cervical Flexion AROM: Normal Cervical Extension AROM: Normal Cervical Side-Bend Right AROM: Minimal limitation Cervical Side-Bend Left AROM: Minimal limitation Cervical Rotation Right AROM: Minimal limitation Cervical Rotation Left AROM: Minimal limitation TREATMENT: Manual Therapy: 1: Stripping to L upper trap 2: CFM to L levator and rhomboids with push to tolerance 3: Objective measures obtained 4: Passive stretching of levator 3x30 sec with gentle STM between bouts Skilled Intervention: Manual skills to improve joint mobility, ROM, and decrease pain. Utilized anatomy knowledge of the therapist, and assessment of patient's response to intervention. Billing Manual TherapyTreatment Minutes: 43 Skilled Treatment Time Minutes (timed and untimed codes): 43 Total Session Time (minutes): 43 Session Start Time : 1045 Session Stop Time : 1128 Darryl Cardenas PT [facility] 06-06-2024 History of Present illness Narrative Images from the original note were not included. Episode Visit Count: 13 Therapist That Will Accept/Oversee The Plan Of Care: Darryl Cardenas Start of Care Date: 12/19/23 Onset Date: 02/18/24 Plan of Care Certification Date: 06/06/24 Next Certification Due Date: 07/06/24 REHABILITATION AND SPORTS THERAPY PHYSICAL THERAPY PROGRESS REPORT PLAN OF CARE UPDATE: Assessment: Jaz Dukes demonstrates difficulty with computer work and sitting. The patient has progressed toward goals. Patient continues to present with impairments in ADL's, overall function, range of motion, symptom management, and tissue tenderness that interfere with sitting, working . Current prognosis is Excellent due to: current objective clinical presentation, good overall health status, positive past response to therapy, within-session changes, good support system/ coping skills . The patient will benefit from continued skilled therapy services to meet the updated goals for this plan of care as noted below. Goals updated on 06/04/2024. Goals for Episode of Care: established 12/19/23 [place] in home exercise program. Met Patient will decrease pain rating by 2 points to meet minimal clinical important difference for numeric pain rating scale. Partially met Patient will increase active ROM of cervical spine and L knee to WNL to allow pt to to improve performance of ADLs. Progressing Patient will demonstrate increase in L knee strength to 4+/5 during manual muscle testing in order to improve function for basic self-care tasks, home management tasks, and prior functional tasks. Progressing Sleep throughout the night without pain/symptoms. Progressing Time Frame for Goals and Treatment : 07/14/24 Planned Interventions, Frequency, and Duration: 1x/week, 4 weeks Total Number of Visits Planned: 4 Patient to be seen for Therapeutic exercise (54043), Neuromuscular re-education (40141), Manual therapy (04386), Therapeutic activities (92669), Self-residential management (40507), Patient/Family/Caregiver Education, Body Mechanics Training PLAN FOR NEXT VISIT: Manual for symptom modulation, may try to trouble shoot computer set up to decrease pain on irritated tissue SUBJECTIVE: Patient did really well while on vacation. No pain or symptoms, but she also spent zero time at a computer. She notes that since she is back and at the computer a lot, she has had the pain returning. Functional Limitations: sitting, working Pain: Pain Pain Level: 0 Pain Location: Neck - Left, Shoulder - Left Description: Tightness, Aching, Sore Frequency: Continuous PROMIS Scales 05/28/2024 04/11/2024 03/06/2024 Higher is Better Phys Func - T Score 50 (within normal limits) 52 (within normal limits) 52 (within normal limits) Phys Func - Percentile 50 58 58 Self-Eff Symptom - T Score 41 (Average) 46 (Average) 46 (Average) Self-Eff Symptom - Percentile 18 34 34 03/26/2024 02/11/2020 01/14/2020 Lower is Better Pain Interference - T Score 53 (within normal limits) 56 (mild) 62 (moderate) Pain Interference - Percentile 38 27 12 T-scores: mean of general population = 50. 5 points is clinically meaningfully difference Percentiles provide an indication of how the patient's score ranks in relation to the general population. Higher percentile rankings indicate better function/quality of life. 50th percentile is the average of the general population and indicates half of respondents had a worse score. OBJECTIVE MEASURES WITH LEVEL OF FUNCTION: Spine Observations L Cervical Spine Palpation Tenderness: Levator scapulae, Comments Comments: rhomboids Cervical Spine ROM Cervical Flexion AROM: Normal Cervical Extension AROM: Normal Cervical Side-Bend Right AROM: Minimal limitation Cervical Side-Bend Left AROM: Minimal limitation Cervical Rotation Right AROM: Minimal limitation Cervical Rotation Left AROM: Minimal limitation TREATMENT: Manual Therapy: 1: Stripping to L upper trap 2: CFM to L levator and rhomboids with push to tolerance 3: Objective measures obtained 4: Passive stretching of levator 3x30 sec with gentle STM between bouts Skilled Intervention: Manual skills to improve joint mobility, ROM, and decrease pain. Utilized anatomy knowledge of the therapist, and assessment of patient's response to intervention. Billing Manual TherapyTreatment Minutes: 43 Skilled Treatment Time Minutes (timed and untimed codes): 43 Total Session Time (minutes): 43 Session Start Time : 1045 Session Stop Time : 1128 Darryl Cardenas PT documented in this encounter [facility] 06-05-2024 Instructions Micah High MD - 06/05/2024 11:24 AM EDT We discussed your anxiety and depression: - Restart Zoloft (sertraline) at 50 mg. Begin by taking half a pill (25 mg) daily for one week, then increase to a full pill (50 mg) daily. This prescription has been sent to your preferred [facility] pharmacy (90 pills with 3 refills). If needed, you may take two pills (100 mg) daily, but please let me know before making this adjustment. - Continue seeing Dr. Munoz for cognitive behavioral therapy (CBT). If you are unable to schedule an appointment, let us know so we can assist you. - I will see you in 6 weeks for a geriatric visit to evaluate your cognitive function and assess your progress with the medication. We discussed your stress and memory concerns: - Your memory issues are likely related to anxiety and stress rather than dementia. You are managing a significant amount of responsibility, which can contribute to these symptoms. - Continue your daily walks with the dogs, as this is beneficial for your mental health and overall well-being. - Your heart and lungs sound good, and you are taking excellent care of yourself. Keep up the walking and other healthy habits. We discussed your hypertension and hyperlipidemia: - Your blood pressure is well-controlled on lisinopril. Continue taking this medication as prescribed. - Your cholesterol levels were within range last year, and you are doing well on Zetia. We will check your comprehensive metabolic panel (CMP) this year to monitor your health. Follow-Up: - Schedule a follow-up appointment with me in 6 weeks for a geriatric visit and cognitive assessment. - If you experience any worsening symptoms or side effects from the medication, please contact our office. Please continue your current medications (lisinopril, Zetia, and finasteride) as prescribed. Let us know if you have any questions or concerns. documented in this encounter [facility] 06-05-2024 History of Present illness Narrative Reason for Visit Patient presents with: Recheck: Stress and memory issues feels over loaded Jaz Dukes is a 68 year old female who presents here today for CPE. Health Maintenance BP Controlled (<130/80) Advance Directive Discussion Mammogram Screening HPI Emilee is a 68-year-old female with a history of HTN, HLD, depression, and anxiety, presenting for evaluation of increased anxiety and depression. Emilee reports exacerbation of anxiety and depression symptoms after discontinuing Zoloft. She has been managing her anxiety with Ativan, but has exhausted her supply. She attributes the increase in symptoms to the stress of managing the estate and trust of a friend, which she describes as overwhelming and complicated. She has considered resigning from this responsibility but was informed that she is too far along in the process to do so. Additionally, she recently experienced the loss of another friend, which has contributed to her emotional burden. Emilee also reports tension with her , who frequently expresses concern about her memory, fearing she may develop Alzheimer's disease like her father. This has led to increased anxiety for Emilee, particularly when she forgets things. She notes that her has backed off a lot more after she addressed the issue with him, but the concern still lingers. She denies any memory issues during a recent two-week trip to [place] to visit her sister, stating she was fine the whole time. She continues to take daily walks with her dog and her neighbor's dog, which she describes as her sanity saver. She reports feeling better after these walks. She is currently taking Zetia for HLD, lisinopril for HTN, and finasteride for hair loss. She has discontinued Zoloft and has been using Ativan for anxiety management. She also occasionally uses methocarbamol. She is undergoing physical therapy for stress incontinence and has been seeing Dr. Munoz for CBT for depression, although she has not made a recent appointment and is unsure how to schedule one. No problem-specific Assessment & Plan notes found for this encounter. PAST MEDICAL HISTORY Diagnosis Date Abnormal glandular Papanicolaou smear of cervix 04/23/2005 Abn. 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 Hypertension Internal hemorrhoids without mention of complication Irregular menstrual cycle perimenopausal bleeding Snoring PAST SURGICAL HISTORY Procedure Laterality Date BIOPSY BREAST OPEN INCISIONAL 11/28/2000 left breast COLONOSCOPY FLX DX W/COLLJ SPEC WHEN PFRMD 05/17/2006 COLONOSCOPY FLX DX W/COLLJ SPEC WHEN PFRMD 06/16/2017 Colonoscopy COLPOSCOPY CERVIX UPPER/ADJACENT VAGINA 07/15/2000 Colposcopy CONIZATION CERVIX W/WO D&C RPR ELTRD EXC 08/03/2000 LEEP-Cervix LIG/TRNSXJ FLP TUBE ABDL/VAG APPR UNI/BI 05/27/1992 Tubal ligation, BPS OTHER MOHS- removal of squamous cells PAST SURGICAL HISTORY OF 1981 Broken Nose Repair PAST SURGICAL HISTORY OF 09/17/2004 EMB PAST SURGICAL HISTORY OF 09/2004 BONE DENSITTY SKIN BX, 1 LESION 12/15/2000 basal cell CA, on face SKIN EXCISION 12/23/2021 excision skin cyst lower back TONSILLECTOMY PRIMARY/SECONDARY <AGE 12 Tonsillectomy FAMILY HISTORY Problem Relation Age of Onset Diabetes Father non-insulin Cancer Father Bladder and Basil Cell Cancer Paternal Grandmother Ovarian age 45 Lipids Mother Hyperlipidemia,stroke Heart Mother 65 [place] Hypertension Mother Arthritis Mother Cancer Mother Skin cancer - unsure of cell type other (heartburn) Son other (Other) Other No breast/uterine/colon cancer other (melanoma) Daughter Social History Tobacco Use Smoking status: Never Smokeless tobacco: Never Vaping Use Vaping status: Never Used Substance Use Topics Alcohol use: Yes Alcohol/week: 14.0 standard drinks of alcohol Types: 14 Glasses of Wine (5oz) per week Drug use: No Past medical history, appointments, medications, allergies reviewed. Pertinent Lab/Diagnostic Studies are reviewed and discussed today Current Outpatient Medications: methocarbamol (ROBAXIN) 500 mg tablet finasteride (PROPECIA) 1 mg tablet tacrolimus (PROTOPIC) 0.1 % ointment triamcinolone acetonide (KENALOG) 0.1 % cream lisinopril (ZESTRIL) 5 mg tablet ezetimibe (ZETIA) 10 mg tablet fluticasone (FLONASE) 50 mcg/actuation nasal spray sertraline (ZOLOFT) 50 mg tablet estradiol (ESTRACE) 0.01 % (0.1 mg/gram) vaginal cream Review of Systems CONSTITUTIONAL: No fevers, chills, nightsweats, unintended weight loss HEENT: Denies frequent or severe heaches, nasal congestion/sinus symptoms, problematic allergy problems. EYES: No diplopia or blurry vision. CARDIOVASCULAR: No chest pain, dyspnea, palpitations, orthopnea, PND, ankle edema. PULM: No dyspnea, unexplained cough. GI: No dysphagia/odynophagia, problematic reflux, constipation, diarrhea, changes in stool habits, hematochezia, melena. : No new urinary complaints, including dysuria, gross hematuria or pyuria. NEURO: No new balance problems, peripheral weakness/paresthesias or numbness of concern. MUSC-SKEL: No new joint pain, swelling, or erythema. PSY: No concerns regarding depression, anxiety or panic. INTEGUMENTARY: No new skin changes (rash, new or changing mole, new growth) Physical Exam BP 132/84 Pulse 75 Ht 154.9 cm (5' 1) Wt 60.4 kg (133 lb 3.2 oz) LMP 12/12/2009 SpO2 99% BMI 25.17 kg/m General appearance: Well appearing, alert, in no acute distress, well-hydrated, well nourished. Skin: Skin color, texture, turgor normal, no suspicious rashes or lesions Head: Normocephalic, no masses, lesions, tenderness or abnormalities Eyes: Anicteric sclera. Pupils are equally round and reactive to light. Extraocular movements are intact. Ears: External ears normal, canals clear Neck: Supple, no adenopathy; thyroid symmetric, normal size, no bruits Lungs: Lungs clear to auscultation. No wheezing, rhonchi, rales Heart: RRR without murmur, gallop, or rubs. No ectopy 1. Mixed hyperlipidemia (E78.2) Clinically stable on Zetia. Cholesterol labs from last year were within normal range. - Continue Zetia. - Ordered CMP. 2. Essential hypertension (I10) Well-controlled on lisinopril. Blood pressure readings today are within normal limits. Continue lisinopril. 3. 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 Patient discontinued Zoloft and has been using Ativan sparingly. Anxiety exacerbated by 's concerns about potential Alzheimer's disease. - Restart Zoloft at 50 mg: take half a pill daily for one week, then increase to a full pill daily. - Prescribed 90 pills with 3 refills, sent to [id number]. - Scheduled follow-up in 6 weeks for a geriatric visit to evaluate cognitive function. - Continue cognitive behavioral therapy with Dr. Munoz. 4. Stress incontinence (N39.3) Undergoing physical therapy. Continue physical therapy. 5. Family history of Alzheimer disease (Z82.0) Patient's father had Alzheimer's disease. Patient expresses concern about memory lapses, exacerbated by 's worries about potential Alzheimer's. - Scheduled geriatric visit in 6 weeks to assess cognitive function. - Reassured patient that current symptoms are likely due to anxiety and depression rather than dementia. Voice recognition software was used to compose this office note. Please excuse any unintended typographical errors. documented in this encounter [facility] 06-05-2024 Note HNO ID: [id number] Author: MICAH HIGH MD Service: ? Author Type: Physician Type: Progress Notes Filed: 06/05/2024 18:04 Note Text: Reason for Visit Patient presents with: Recheck: Stress and memory issues feels over loaded Jaz Dukes is a 68 year old female who presents here today for CPE. Health Maintenance BP Controlled (<130/80) Advance Directive Discussion Mammogram Screening HPI Emilee is a 68-year-old female with a history of HTN, HLD, depression, and anxiety, presenting for evaluation of increased anxiety and depression. Emilee reports exacerbation of anxiety and depression symptoms after discontinuing Zoloft. She has been managing her anxiety with Ativan, but has exhausted her supply. She attributes the increase in symptoms to the stress of managing the estate and trust of a friend, which she describes as overwhelming and complicated. She has considered resigning from this responsibility but was informed that she is too far along in the process to do so. Additionally, she recently experienced the loss of another friend, which has contributed to her emotional burden. Emilee also reports tension with her , who frequently expresses concern about her memory, fearing she may develop Alzheimer's disease like her father. This has led to increased anxiety for Emilee, particularly when she forgets things. She notes that her has backed off a lot more after she addressed the issue with him, but the concern still lingers. She denies any memory issues during a recent two-week trip to [place] to visit her sister, stating she was fine the whole time. She continues to take daily walks with her dog and her neighbor's dog, which she describes as her sanity saver. She reports feeling better after these walks. She is currently taking Zetia for HLD, lisinopril for HTN, and finasteride for hair loss. She has discontinued Zoloft and has been using Ativan for anxiety management. She also occasionally uses methocarbamol. She is undergoing physical therapy for stress incontinence and has been seeing Dr. Munoz for CBT for depression, although she has not made a recent appointment and is unsure how to schedule one. No problem-specific Assessment AND Plan notes found for this encounter. PAST MEDICAL HISTORY Diagnosis Date Abnormal glandular Papanicolaou smear of cervix 04/23/2005 Abn. 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 Hypertension Internal hemorrhoids without mention of complication Irregular menstrual cycle perimenopausal bleeding Snoring PAST SURGICAL HISTORY Procedure Laterality Date BIOPSY BREAST OPEN INCISIONAL 11/28/2000 left breast COLONOSCOPY FLX DX W/COLLJ SPEC WHEN PFRMD 05/17/2006 COLONOSCOPY FLX DX W/COLLJ SPEC WHEN PFRMD 06/16/2017 Colonoscopy COLPOSCOPY CERVIX UPPER/ADJACENT VAGINA 07/15/2000 Colposcopy CONIZATION CERVIX W/WO DANDC RPR ELTRD EXC 08/03/2000 LEEP-Cervix LIG/TRNSXJ FLP TUBE ABDL/VAG APPR UNI/BI 05/27/1992 Tubal ligation, BPS OTHER MOHS- removal of squamous cells PAST SURGICAL HISTORY OF 1981 Broken Nose Repair PAST SURGICAL HISTORY OF 09/17/2004 EMB PAST SURGICAL HISTORY OF 09/2004 BONE DENSITTY SKIN BX, 1 LESION 12/15/2000 basal cell CA, on face SKIN EXCISION 12/23/2021 excision skin cyst lower back TONSILLECTOMY PRIMARY/SECONDARY Tonsillectomy FAMILY HISTORY Problem Relation Age of Onset Diabetes Father non-insulin Cancer Father Bladder and Basil Cell Cancer Paternal Grandmother Ovarian age 45 Lipids Mother Hyperlipidemia,stroke Heart Mother 65 [place] Hypertension Mother Arthritis Mother Cancer Mother Skin cancer - unsure of cell type other (heartburn) Son other (Other) Other No breast/uterine/colon cancer other (melanoma) Daughter Social History Tobacco Use Smoking status: Never Smokeless tobacco: Never Vaping Use Vaping status: Never Used Substance Use Topics Alcohol use: Yes Alcohol/week: 14.0 standard drinks of alcohol Types: 14 Glasses of Wine (5oz) per week Drug use: No Past medical history, appointments, medications, allergies reviewed. Pertinent Lab/Diagnostic Studies are reviewed and discussed today Current Outpatient Medications: methocarbamol (ROBAXIN) 500 mg tablet finasteride (PROPECIA) 1 mg tablet tacrolimus (PROTOPIC) 0.1 % ointment triamcinolone acetonide (KENALOG) 0.1 % cream lisinopril (ZESTRIL) 5 mg tablet ezetimibe (ZETIA) 10 mg tablet fluticasone (FLONASE) 50 mcg/actuation nasal spray sertraline (ZOLOFT) 50 mg tablet estradiol (ESTRACE) 0.01 % (0.1 mg/gram) vaginal cream Review of Systems CONSTITUTIONAL: No fevers, chills, nightsweats, unintended weight loss HEENT: Denies frequent or severe heaches, nasal congestion/sinus symptoms, problematic allergy problems. EYES: No diplopia or blurry vision. CARDIOVASCULAR: No chest pain (more content not included)... [facility] 05-30-2024 Note HNO ID: [id number] Author: STUART ROJAS PSYD Service: ? Author Type: Psychologist Type: Progress Notes Filed: 06/05/2024 13:38 Note Text: ZOOM VISIT 45 Minutes GENERAL PSYCHOLOGY SUBJECTIVE: Kristin is returning to counseling after the of her friend. This triggered trauma related to her parents divorce and making decisions about her marriage. OBJECTIVE: Tearful, sad. ASSESSMENT: Stable DIAGNOSIS: PRIMARY: 1: Depression, recurrent, mild TREATMENT MODALITIES: Cognitive Behavioral Therapy to cognitive restructuring PROGRESS TO DATE: [facility] Progress: Stable Short Term Condition: Stable GOALS/OBJECTIVES/INTERVENTIONS: 1) CBT for depression 2) Coping with transitions/family Approximately 45 minutes were spent with the patient doing therapy. Stuart Owens PSYD [facility] 05-10-2024 Discharge summary [facility] 05-10-2024 Discharge summary Note Date/Time May 10, 2024 3:27pm [facility] Medical Records Department [address] [place] [address] Emergency Department Summary 05/10/24 MR#: [id number] Acct: [id number] Name: JAZ DUKES Rep #:[id number] : 1955 68 From: Kartik Bello MD PCP: Dr. Micah High MD Status:REG E R Location: ED HPI HPI - Fall History of Present Illness Chief Complaint: Fall Informant: patient and spouse/S.O. Occured/Mechanism Occurred: Today Mechanism/Context: Yes same level fall and Yes slip Usually ambulates: Without assistance Pain/Injury Pain Location: head Quality of Pain: Dull and Aching Current Severity: Mild Maximum Severity: Moderate Associated Symptoms Associated Symptoms: Negative for Parasthesias, Weakness, Loss of function, Inability to ambulate, Loss of consciousness or Amnesia Narrative Narrative: 68-year-old female history of anxiety. Was outside slipped on the ice fell backwards striking back of her head. No LOC. She is on no blood thinners not even aspirin. Denies any other complaints. Has a mild headache. No nausea. This occurred just over an hour ago. Prior similar symptoms: No Recent Illness/Hospitalization: No PFSH PFSH Allergy/AdvReac Type Severity Reaction Status Date / Time No Known Allergies Allergy Verified 05/10/24 12:19 Social History household members: spouse housing: house Smoking Status: Never smoker ROS ROS ED ROS Narrative Denies recent illness. Headache post fall. Denies nausea or vomiting. Constitutional Constitutional ED: Denies chills or fever(s) ENT ENT ED: Denies ear pain Cardiovascular Cardiovascular: Denies chest pain Respiratory/Chest Respiratory/Chest: Denies cough Gastrointestinal Gastrointestinal: Denies abdominal pain, nausea or vomiting Genitourinary Genitourinary ED: Denies dysuria or hematuria Musculoskeletal Musculoskeletal: Denies arthralgias, back pain or neck pain Integumentary Denies abscess or Abrasions Neurologic Neurologic: Reports headache(s) Psychiatric Psychiatric: Denies anxiety Endocrine Endocrinology: Denies polydipsia Hematologic/Lymphatic Hematologic/Lymphatic: Denies easy bleeding, easy bruising or lymphadenopathy Allergic/Immunologic Allergic/Immunologic ED: Denies mouth swelling, tongue swelling or urticaria EXAM Physical Exam Narrative Exam Narrative: Well-appearing 68-year-old female sitting upright in bed. at bedside. Vital signs are stable afebrile. She does not look septic toxic or any distress. H EENT exam pupils round reactive light. Extra motions are intact. No facial droop. Moist mucous membranes. No trauma to her face. Posterior scalp there is a half dollar sized hematoma. No laceration. No blood or bleeding. Neck nontender. Trachea midline. C-spine nontender. Back and thoracic and lumbar spine nontender no bruising. Chest wall and ribs nontender. Lungs clear equal and symmetrical bilaterally. Heart regular rhythm rate about90 no murmur. Abdomen soft nontender. Pelvic girdle intact. Hips are nontender. No shortening or rotation. Normal pulley man strength. Normal dorsi plantarflexion. Normal flexion extension both upper and lower extremities. Neurologically she is awake and alert no focal motor deficits. Answer questionsfollowing commands. GCS of 15. Const Vital Signs: 05/10/24 12:19 05/10/24 13:00 Temperature 97.1 F L Temperature Source Oral Pulse Rate 89 Respiratory Rate 16 Respiratory Effort Normal Non-Labored Respiratory Depth Normal Respiratory Pattern Normal Blood Pressure 186/96 H Blood Pressure Mean 126 Pulse Ox 98 99 Oxygen Delivery Method Room Air Room Air Positive well nourished and well developed; Negative for obese, cachectic, contractures or unkempt General Appearance ED: well developed and NAD; Negative for unkempt, cachectic or contractures Nutritional Appearance: Negative for cachectic or obese HEENT Reports normocephalic HEENT Narrative: Contusion posterior scalp size of a half dollar. No laceration. No blood or bleeding. Tender. trauma, contusion, hematoma and tenderness; Negative for atraumatic Eyes PERRL and EOMs intact bilaterally General Eye ED: Negative for pale conjunctiva or scleral icterus Neck full ROM, no lymphadenopathy and supple General: Negative for tenderness Chest Wall inspection of chest normal and palpation of chest normal Resp normal respiratory effort, no retractions and clear to auscultation bilaterally Effort and Inspection: Negative for pain with movement Auscultation: Negative for rales, rhonchi, wheezes, diminished lung sounds or other Cardio regular rate, regular rhythm, S1 normal heart sound, S2 normal heart sound and no murmurs Rate: Negative for bradycardia or tachycardic Rhythm: Negative for abnormal rhythm Bruits: Negative for other GI non-tender, non-distended and no masses Inspection: Negative for abdominal distention Auscultation: normoactive bowel sounds Palpation: soft; Negative for guarding or rebound tenderness present Back/Spine no CVA tenderness General Back: Negative for CVA tenderness Cervical Spine: Negative for cervical spine tenderness Lumbar Spine / Lower Back: Negative for lumbar spinal tenderness or paraspinal muscle tenderness Neuro oriented x3, CN's II-XII intact bilaterally, moves all extremities, no focal motor deficits and no sensory deficits noted Sheryl Coma Scale: document GCS findings Spontaneous Obeys Commands Oriented 15 Sensorium / Orientation: alert, oriented to person, oriented to place and oriented to time; Negative for orientation impaired, confused, lethargic or stuporous Motor Exam: strength 5/5 throughout Psych mental status grossly normal and thought process normal Appearance: Negative for unkempt Mood & Affect: anxious Skin Lesions: no lesions Rashes: no rashes Trauma: Negative for abrasion or laceration MDM MDM MDM Narrative Medical decision making narrative: 68-year-old female slipped and fell on the ice. She is neurologically intact. She is not on blood thinners. She had no LOC. However she does have a moderate-sized hematoma on her posterior scalp. She will get Tylenol for headache and I am going to obtain a plain CAT scan. She has no other injuries no other pain at home think she needs any other CAT scan or x-rays to be done. Repeat exam patient is doing well. We discussed her CAT scan results and she will be discharged home head injury instructions. History & Record Review Discussion w/independent historian: Patient and Family Additional record(s) reviewed:: Prior inpatient record, Prior outpatient record,Prior ED visit and Prior labs Radiography Diagnostic Testing: Clinical Impression(s) from Imaging Studies Brain CT 05/10/24 13:30 IMPRESSION: 1. No acute intracranial abnormalities are demonstrated. Reading Location: [place] [address] Discharge Plan Triage Chief Complaint: Fall ED Provider: Kartik Bello Dx/Rx/DC Orders Clinical Impression: Fall, Closed head injury Instructions: ED Head Injury (Adult) Primary Care Provider: Micah High Referrals: Micah High MD [Primary Care Provider] - 1 Week if not improving Activity Restrictions/Additional Instructions: Ice to your scalp to decrease the pain and swelling Tylenol for pain. You have a close head injury most likely a mild concussion. You may have some intermittent headaches. Dizziness. You may want to sleep more or have trouble sleeping. All those are postconcussion symptoms. Those should progressively get better and improve the next several weeks. If you would get a severe headache with vomiting you need to return for further evaluation. Print Language: Djiboutian Disposition Disposition: Home, Self Care What to do if you have Problems For any increased pain, shortness of breath, bleeding, nausea or vomiting, chestpain, or any unexpected problems, contact your Primary Care Provider. Call [facility] ([phone]) or report to the closest Emergency Room. Call 911 if necessary. 05/10/24 7117 <Electronically signed by Kartik Bello MD> Cosigner Signature (if applicable): CC: Dr. Micah High MD ~ Signed [facility] Work Phone: [phone]) 821-868703-06-2025 Radiology Diagnostic study note [facility] Imaging Services [address] [place] [address] Brain/Head without Contrast MR#: [id number] Acct: [id number] Name: JAZ DUKES Rep #: [id number] : 1955 F 68 From: Kavita Rodriguez MD PCP: Dr. Micah High MD Status: REG E R Study:Brain/Head without Contrast Date of Exa m: 05/10/24 Exam# [id number] Ordering Dr: Baltazar Bello MD EXAM: BRAIN/HEAD WITHOUT CONTRAST CLINICAL HISTORY: Head trauma. COMPARISON: No relevant prior. TECHNIQUE: Contiguous axial scans of 3.75 mm slice thicknesses with sagittal and coronal reconstruction images. One or more dose reduction techniques were utilized (e.g., automated exposure control, adjustment of mA and/or kv according to patient size, use of iterative reconstruction technique). FINDINGS: Cerebrum: No intraparenchymal hemorrhage. No abnormal areas of encephalomalacia.No mass effect or midline shift. Fontana-white matter differentiation is normal. Ventricles and cisterns: Appropriate size for patient's age. Extra-axial fluid: Unremarkable. Posterior fossa: Unremarkable cerebellum. No abnormalities involving the brainstem. Paranasal sinuses: Normal. Vasculature: Atherosclerotic calcific disease in the carotid siphon. Mastoid air cells: Normal. Calvarium: Unremarkable. Soft tissues: Unremarkable. CT/Brain/Head without Contrast IMPRESSION: 1. No acute intracranial abnormalities are demonstrated. Reading Location: [place] [address] CC: Dr. Micah High MD; Dr. Kartik Bello MD ~ Wrapper Selector: Signed [facility]03-03-2025 NoteHNO ID: [id number] Author: DARRYL CARDENAS PT Service: ? Author Type: Physical Therapist Type: Progress Notes Filed: 05/07/2024 10:59 Note Text: Episode Visit Count: 12 Therapist That Will Accept/Oversee The Plan Of Care: Darryl Cardenas Start of Care Date: 12/19/23 Onset Date: 02/18/24 Plan of Care Certification Date: 04/12/24 Next Certification Due Date: 06/10/24 REHABILITATION AND SPORTS THERAPY PHYSICAL THERAPY PROGRESS REPORT PLAN OF CARE UPDATE: Assessment: Jaz Dukes demonstrates moderate improvement in bending, heavy exertion, lifting, and physical activities. The patient has progressed toward goals. Patient continues to present with impairments in ADL's, overall function, range of motion, symptom management, and tissue tenderness that interfere with . Current prognosis is Excellent due to: current objective clinical presentation, good overall health status, positive past response to therapy, within-session changes, good support system/ coping skills . The patient will benefit from continued skilled therapy services to meet the updated goals for this plan of care as noted below. Goals updated on 05/07/2024. Goals for Episode of Care: established 12/19/23 [place] in home exercise program. Met Patient will decrease pain rating by 2 points to meet minimal clinical important difference for numeric pain rating scale. Partially met Patient will increase active ROM of cervical spine and L knee to WNL to allow pt to to improve performance of ADLs. Progressing Patient will demonstrate increase in L knee strength to 4+/5 during manual muscle testing in order to improve function for basic self-care tasks, home management tasks, and prior functional tasks. Progressing Sleep throughout the night without pain/symptoms. Progressing Time Frame for Goals and Treatment : 06/07/24 Planned Interventions, Frequency, and Duration: 1 visit, 4 weeks Total Number of Visits Planned: 1 Patient to be seen for Therapeutic exercise (00360), Neuromuscular re-education (10391), Manual therapy (51907), Therapeutic activities (81273), Self-residential management (00362), Patient/Family/Caregiver Education, Body Mechanics Training PLAN FOR NEXT VISIT: [place] vs [place]. May consider needling if patients symptoms continue SUBJECTIVE: Patient did well all week until yesterday. Knife like pain in her same L shoulder area. Overall doing much better with less frequent pain, but the intensity is still campbell same when it does come. Pain: Pain Pain Level: 4 Pain Location: Neck - Left, Shoulder - Left Description: Tightness, Sore Frequency: Continuous PROMIS Scales 04/11/2024 03/06/2024 02/07/2024 Higher is Better Phys Func - T Score 52 (within normal limits) 52 (within normal limits) 45 (within normal limits) Phys Func - Percentile 58 58 31 Self-Eff Symptom - T Score 46 (Average) 46 (Average) 42 (Average) Self-Eff Symptom - Percentile 34 34 21 Proxy-reported 03/26/2024 02/11/2020 01/14/2020 Lower is Better Pain Interference - T Score 53 (within normal limits) 56 (mild) 62 (moderate) Pain Interference - Percentile 38 27 12 T-scores: mean of general population = 50. 5 points is clinically meaningfully difference Percentiles provide an indication of how the patient's score ranks in relation to the general population. Higher percentile rankings indicate better function/quality of life. 50th percentile is the average of the general population and indicates half of respondents had a worse score. OBJECTIVE MEASURES WITH LEVEL OF FUNCTION: Spine Observations L Cervical Spine Palpation Tenderness: Levator scapulae, Comments Comments: rhomboids Cervical Spine ROM Cervical Flexion AROM: Normal Cervical Extension AROM: Normal Cervical Side-Bend Right AROM: Minimal limitation Cervical Side-Bend Left AROM: Minimal limitation Cervical Rotation Right AROM: Minimal limitation Cervical Rotation Left AROM: Minimal limitation Special Tests - Cervical Cervical Compression: Negative Cervical Distraction: Negative Quadrant: Left Negative Spurling: Left Negative TREATMENT: Manual Therapy: 1: Stripping to L upper trap 2: CFM to L levator and rhomboids with push to tolerance 3: objective measures obtained Skilled Intervention: Manual skills to improve joint mobility, ROM, and decrease pain. Utilized anatomy knowledge of the therapist, and assessment of patient's response to intervention. Billing Manual TherapyTreatment Minutes: 29 Skilled Treatment Time Minutes (timed and untimed codes): 29 Total Session Time (minutes): 29 Session Start Time : 945 Session Stop Time : 1014 Darryl Cardenas, [facility]03-03-2025 History of Present illness Narrative* Darryl Cardenas, PT - 05/07/2024 10:43 AM EST Images from the original note were not included. Episode Visit Count: 12 Therapist That Will Accept/Oversee The Plan Of Care: Darryl Cardenas Start of Care Date: 12/19/23 Onset Date: 02/18/24 Plan of Care Certification Date: 04/12/24 Next Certification Due Date: 06/10/24 REHABILITATION AND SPORTS THERAPY PHYSICAL THERAPY PROGRESS REPORT PLAN OF CARE UPDATE: Assessment: Jaz Dukes demonstrates moderate improvement in bending, heavy exertion, lifting, and physical activities. The patient has progressed toward goals. Patient continues to present with impairments in ADL's, overall function, range of motion, symptom management, and tissue tenderness that interfere with . Current prognosis is Excellent due to: current objective clinical presentation, good overall health status, positive past response to therapy, within-session changes, good support system/ coping skills . The patient will benefit from continued skilled therapy services to meet the updated goals for this plan of care as noted below. Goals updated on 05/07/2024. Goals for Episode of Care: established 12/19/23 [place] in home exercise program. Met Patient will decrease pain rating by 2 points to meet minimal clinical important difference for numeric pain rating scale. Partially met Patient will increase active ROM of cervical spine and L knee to WNL to allow pt to to improve performance of ADLs. Progressing Patient will demonstrate increase in L knee strength to 4+/5 during manual muscle testing in order to improve function for basic self-care tasks, home management tasks, and prior functional tasks. Progressing Sleep throughout the night without pain/symptoms. Progressing Time Frame for Goals and Treatment : 06/07/24 Planned Interventions, Frequency, and Duration: 1 visit, 4 weeks Total Number of Visits Planned: 1 Patient to be seen for Therapeutic exercise (12126), Neuromuscular re-education (49776), Manual therapy (57922), Therapeutic activities (89989), Self-residential management (61924), Patient/Family/Caregiver Education, Body Mechanics Training PLAN FOR NEXT VISIT: [place] vs [place]. May consider needling if patients symptoms continue SUBJECTIVE: Patient did well all week until yesterday. Knife like pain in her same L shoulder area.Overall doing much better with less frequent pain, but the intensity is still campbell same when it doescome. Pain: Pain Pain Level: 4 Pain Location: Neck - Left, Shoulder - Left Description: Tightness, Sore Frequency: Continuous PROMIS Scales 04/11/2024 03/06/2024 02/07/2024 Higher is Better Phys Func - T Score 52 (within normal limits) 52 (within normal limits) 45 (within normal limits) Phys Func - Percentile 58 58 31 Self-Eff Symptom - T Score 46 (Average) 46 (Average) 42 (Average) Self-Eff Symptom - Percentile 34 34 21 Proxy-reported 03/26/2024 02/11/2020 01/14/2020 Lower is Better Pain Interference - T Score 53 (within normal limits) 56 (mild) 62 (moderate) Pain Interference - Percentile 38 27 12 T-scores: mean of general population = 50. 5 points is clinically meaningfully difference Percentiles provide an indication of how the patient's score ranks in relation to the general population. Higher percentile rankings indicate better function/quality of life. 50th percentile is the average of the general population and indicates half of respondents had a worse score. OBJECTIVE MEASURES WITH LEVEL OF FUNCTION: Spine Observations L Cervical Spine Palpation Tenderness: Levator scapulae, Comments Comments: rhomboids Cervical Spine ROM Cervical Flexion AROM: Normal Cervical Extension AROM: Normal Cervical Side-Bend Right AROM: Minimal limitation Cervical Side-Bend Left AROM: Minimal limitation Cervical Rotation Right AROM: Minimal limitation Cervical Rotation Left AROM: Minimal limitation Special Tests - Cervical Cervical Compression: Negative Cervical Distraction: Negative Quadrant: Left Negative Spurling: Left Negative TREATMENT: Manual Therapy: 1: Stripping to L upper trap 2: CFM to L levator and rhomboids with push to tolerance 3: objective measures obtained Skilled Intervention: Manual skills to improve joint mobility, ROM, and decrease pain. Utilized anatomy knowledge of the therapist, and assessment of patient's response to intervention. Billing Manual TherapyTreatment Minutes: 29 Skilled Treatment Time Minutes (timed and untimed codes): 29 Total Session Time (minutes): 29 Session Start Time : 945 Session Stop Time : 1015 Darryl Cardenas PT [facility] Telephone encounter Note * Telephone Encounter - Leta Joseph LPN - 05/02/2024 9:26 AM EST Images from the original note were not included. Prior authorization approved Payer: [employer] [phone] Note from payer: CaseId:[id number];Status:Approved;Review Type:Prior Auth;Coverage Start Date:04/02/2024;Coverage End Date:05/02/2025; Approval Details Authorized from April 02, 2024 to May 02, 2025 Electronic appeal: Not supported View History Medication Being Authorized LORazepam (ATIVAN) 0.5 mg Take 1 tablet by mouth three times a day as needed for up to 7 days. Dispense: 21 tablet Refills: 0 Start: 05/01/2024 End: 05/08/2024 Class: Normal Diagnoses: Panic attack, Claustrophobia This order has been released to its destination. To be filled at: [id number] - [place] [address] [address] [facility] - [phone] Pt notified via my chart. [facility]02-26-[facility] Miscellaneous Notes* Telephone Encounter - Leta Joseph LPN - 05/02/2024 9:26 AM EST Images from the original note were not included. Prior authorization approved Payer: [employer] [phone] Note from payer: CaseId:[id number];Status:Approved;Review Type:Prior Auth;Coverage Start Date:04/02/2024;Coverage End Date:05/02/2025; Approval Details Authorized from April 02, 2024 to May 02, 2025 Electronic appeal: Not supported View History Medication Being Authorized LORazepam (ATIVAN) 0.5 mg Take 1 tablet by mouth three times a day as needed for up to 7 days. Dispense: 21 tablet Refills: 0 Start: 05/01/2024 End: 05/08/2024 Class: Normal Diagnoses: Panic attack, Claustrophobia This order has been released to its destination. To be filled at: [email or web address] [id number] - [place] [id number] - [address] [facility] - [phone] Pt notified via my chart. * Telephone Encounter - Leta Joseph LPN - 05/02/2024 9:17 AM EST Electronic PA rec'd and completed for lorazepam. documented in this encounterM[facility]02-[facility]-2025 Telephone encounter Note * Telephone Encounter - Leta Joseph LPN - 05/02/2024 9:17 AM EST Electronic PA rec'd and completed for lorazepam. [facility]02-25-2025 NoteHNO ID: [id number] Author: DARRYL CARDENAS PT Service: ? Author Type: Physical Therapist Type: Progress Notes Filed: 05/01/2024 14:22 Note Text: Episode Visit Count: 11 Therapist That Will Accept/Oversee The Plan Of Care: Alonso Patricio Start of Care Date: 12/19/23 Onset Date: 02/18/24 Plan of Care Certification Date: 04/12/24 Next Certification Due Date: 06/10/24 REHABILITATION AND SPORTS THERAPY PHYSICAL THERAPY TREATMENT NOTE ASSESSMENT: Jaz Dukes tolerated the session with decreased symptoms. She demonstrated improvements in neck pain. The patient will continue to benefit from ongoing skilled physical therapy for reassessment by supervising therapist. PLAN FOR NEXT VISIT: SUBJECTIVE: Patient is pretty stressed finishing up the estate, now has a cracked tooth down to the root, and may need a root canal. Pain: Pain Pain Level: 5 Pain Location: Neck - Left, Shoulder - Left Description: Tightness, Sore Frequency: Continuous OBJECTIVE MEASURES WITH LEVEL OF FUNCTION: Tenderness to L levator TREATMENT: Manual Therapy: 1: Stripping to L upper trap 2: CFM to L levator and upper trap with push to tolerance 3: Manual cervical traction x5 min Skilled Intervention: Manual skills to improve joint mobility, ROM, and decrease pain. Utilized anatomy knowledge of the therapist, and assessment of patient's response to intervention. Billing Manual TherapyTreatment Minutes: 32 Skilled Treatment Time Minutes (timed and untimed codes): 32 Total Session Time (minutes): 32 Session Start Time : 1046 Session Stop Time : 1118 Darryl Cardenas [facility]02-25-2025 History of Present illness Narrative* Darryl Cradenas PT - 05/01/2024 2:16 PM EST Episode Visit Count: 11 Therapist That Will Accept/Oversee The Plan Of Care: Alonso Patricio Start of Care Date: 12/19/23 Onset Date: 02/18/24 Plan of Care Certification Date: 04/12/24 Next Certification Due Date: 06/10/24 REHABILITATION AND SPORTS THERAPY PHYSICAL THERAPY TREATMENT NOTE ASSESSMENT: Jaz Dukes tolerated the session with decreased symptoms. She demonstrated improvements in neck pain. The patient will continue to benefit from ongoing skilled physical therapy forreassessment by supervising therapist. PLAN FOR NEXT VISIT: SUBJECTIVE: Patient is pretty stressed finishing up the estate, now has a cracked tooth down to theroot, and may need a root canal. Pain: Pain Pain Level: 5 Pain Location: Neck - Left, Shoulder - Left Description: Tightness, Sore Frequency: Continuous OBJECTIVE MEASURES WITH LEVEL OF FUNCTION: Tenderness to L levator TREATMENT: Manual Therapy: 1: Stripping to L upper trap 2: CFM to L levator and upper trap with push to tolerance 3: Manual cervical traction x5 min Skilled Intervention: Manual skills to improve joint mobility, ROM, and decrease pain. Utilized anatomy knowledge of the therapist, and assessment of patient's response to intervention. Billing Manual TherapyTreatment Minutes: 32 Skilled Treatment Time Minutes (timed and untimed codes): 32 Total Session Time (minutes): 32 Session Start Time : 1046 Session Stop Time : 1118 Darryl Cardenas PT documented in this encounterMari[facility]02-20-2025 NoteHNO ID: [id number] Author: DARRYL CARDENAS PT Service: ? Author Type: Physical Therapist Type: Progress Notes Filed: 04/26/2024 17:13 Note Text: Episode Visit Count: 10 Therapist That Will Accept/Oversee The Plan Of Care: Alonso Patricio Start of Care Date: 12/19/23 Onset Date: 02/18/24 Plan of Care Certification Date: 04/12/24 Next Certification Due Date: 06/10/24 REHABILITATION AND SPORTS THERAPY PHYSICAL THERAPY TREATMENT NOTE ASSESSMENT: Jaz Dukes tolerated the session with decreased symptoms. She demonstrated improvements in neck pain. The patient will continue to benefit from ongoing skilled physical therapy to progress toward set goals. PLAN FOR NEXT VISIT: Continue manual, may progress exercises SUBJECTIVE: L levator is REALLY sore today after continuing to work on sorting through her friends stuff. Pain: Pain Pain Level: 7 Pain Location: Neck - Left, Shoulder - Left Description: Sharp, Tightness Frequency: Continuous OBJECTIVE MEASURES WITH LEVEL OF FUNCTION: Palpation to L levator reproduces familiar pain TREATMENT: Manual Therapy: 1: STM, CFM, and stripping to B upper trap with push to tolerance 2: STM and CFM to B levator with push to tolerance 3: Manual cervical traction x8 min Skilled Intervention: Manual skills to improve joint mobility, ROM, and decrease pain. Utilized anatomy knowledge of the therapist, and assessment of patient's response to intervention. Billing Manual TherapyTreatment Minutes: 42 Skilled Treatment Time Minutes (timed and untimed codes): 42 Total Session Time (minutes): 42 Session Start Time : 1030 Session Stop Time : 1112 Darryl Cardenas, [facility]02-20-2025 History of Present illness Narrative* Darryl Cardenas, PT - 04/26/2024 5:12 PM EST Episode Visit Count: 10 Therapist That Will Accept/Oversee The Plan Of Care: Alonso Patricio Start of Care Date: 12/19/23 Onset Date: 02/18/24 Plan of Care Certification Date: 04/12/24 Next Certification Due Date: 06/10/24 REHABILITATION AND SPORTS THERAPY PHYSICAL THERAPY TREATMENT NOTE ASSESSMENT: Jaz Dukes tolerated the session with decreased symptoms. She demonstrated improvements in neck pain. The patient will continue to benefit from ongoing skilled physical therapy to progress toward set goals. PLAN FOR NEXT VISIT: Continue manual, may progress exercises SUBJECTIVE: L levator is REALLY sore today after continuing to work on sorting through her friends stuff. Pain: Pain Pain Level: 7 Pain Location: Neck - Left, Shoulder - Left Description: Sharp, Tightness Frequency: Continuous OBJECTIVE MEASURES WITH LEVEL OF FUNCTION: Palpation to L levator reproduces familiar pain TREATMENT: Manual Therapy: 1: STM, CFM, and stripping to B upper trap with push to tolerance 2: STM and CFM to B levator with push to tolerance 3: Manual cervical traction x8 min Skilled Intervention: Manual skills to improve joint mobility, ROM, and decrease pain. Utilized anatomy knowledge of the therapist, and assessment of patient's response to intervention. Billing Manual TherapyTreatment Minutes: 42 Skilled Treatment Time Minutes (timed and untimed codes): 42 Total Session Time (minutes): 42 Session Start Time : 103 Session Stop Time : 1111 Darryl Cardenas PT documented in this encounterM[facility]02-12-2025 NoteHNO ID: [id number] Author: DARRYL CARDENAS PT Service: ? Author Type: Physical Therapist Type: Progress Notes Filed: 04/18/2024 15:59 Note Text: Episode Visit Count: 9 Therapist That Will Accept/Oversee The Plan Of Care: Alonso Patricio Start of Care Date: 12/19/23 Onset Date: 02/18/24 Plan of Care Certification Date: 04/12/24 Next Certification Due Date: 06/10/24 REHABILITATION AND SPORTS THERAPY PHYSICAL THERAPY TREATMENT NOTE ASSESSMENT: Jaz Dukes tolerated the session with decreased symptoms. She demonstrated improvements in neck pain. The patient will continue to benefit from ongoing skilled physical therapy to progress toward set goals. PLAN FOR NEXT VISIT: Continue manual techniques, may progress HEP depending on symptoms SUBJECTIVE: Patient sore today but not as bad as last week. manual techniques felt great, HEP going well. Sharp pain in the L shoulder blade today Pain: Pain Pain Level: 5 Pain Location: Neck - Left, Shoulder - Left Description: Sharp, Tightness, Aching Frequency: Continuous OBJECTIVE MEASURES WITH LEVEL OF FUNCTION: Pain reproduced in B upper traps and levators TREATMENT: Manual Therapy: 1: STM, CFM, and stripping to B upper trap with push to tolerance 2: STM and CFM to B levator with push to tolerance 3: Manual cervical traction x5 min Skilled Intervention: Manual skills to improve joint mobility, ROM, and decrease pain. Utilized anatomy knowledge of the therapist, and assessment of patient's response to intervention. Billing Manual TherapyTreatment Minutes: 40 Skilled Treatment Time Minutes (timed and untimed codes): 40 Total Session Time (minutes): 40 Session Start Time : 1034 Session Stop Time : 1114 [facility] History of Present illness Narrative* Darryl Cardenas PT - 04/18/2024 3:55 PM EST Episode Visit Count: 9 Therapist That Will Accept/Oversee The Plan Of Care: Alonso Patricio Start of Care Date: 12/19/23 Onset Date: 02/18/24 Plan of Care Certification Date: 04/12/24 Next Certification Due Date: 06/10/24 REHABILITATION AND SPORTS THERAPY PHYSICAL THERAPY TREATMENT NOTE ASSESSMENT: Jaz Dukes tolerated the session with decreased symptoms. She demonstrated improvements in neck pain. The patient will continue to benefit from ongoing skilled physical therapy to progress toward set goals. PLAN FOR NEXT VISIT: Continue manual techniques, may progress HEP depending on symptoms SUBJECTIVE: Patient sore today but not as bad as last week. manual techniques felt great, HEP goingwell. Sharp pain in the L shoulder blade today Pain: Pain Pain Level: 5 Pain Location: Neck - Left, Shoulder - Left Description: Sharp, Tightness, Aching Frequency: Continuous OBJECTIVE MEASURES WITH LEVEL OF FUNCTION: Pain reproduced in B upper traps and levators TREATMENT: Manual Therapy: 1: STM, CFM, and stripping to B upper trap with push to tolerance 2: STM and CFM to B levator with push to tolerance 3: Manual cervical traction x5 min Skilled Intervention: Manual skills to improve joint mobility, ROM, and decrease pain. Utilized anatomy knowledge of the therapist, and assessment of patient's response to intervention. Billing Manual TherapyTreatment Minutes: 40 Skilled Treatment Time Minutes (timed and untimed codes): 40 Total Session Time (minutes): 40 Session Start Time : 1035 Session Stop Time : 1115 Darryl Cardenas PT documented in this encounterM[facility]02-[facility]-2025 NoteHNO ID: [id number] Author: DARRYL CARDENAS PT Service: ? Author Type: Physical Therapist Type: Progress Notes Filed: 04/12/2024 13:02 Note Text: Episode Visit Count: 8 Therapist That Will Accept/Oversee The Plan Of Care: Alonso Patricio Start of Care Date: 12/19/23 Onset Date: 02/18/24 Plan of Care Certification Date: 04/12/24 Next Certification Due Date: 06/10/24 REHABILITATION AND SPORTS THERAPY PHYSICAL THERAPY PROGRESS REPORT PLAN OF CARE UPDATE: Assessment: Jaz Dukes demonstrates moderate improvement in heavy exertion, sleeping, and driving. The patient has progressed toward goals. Patient continues to present with impairments in ADL's, overall function, range of motion, symptom management, and tissue tenderness that interfere with bending, lifting, working, sleeping . Current prognosis is Excellent due to: current objective clinical presentation, good overall health status, positive past response to therapy, within-session changes, good support system/ coping skills . The patient will benefit from continued skilled therapy services to meet the updated goals for this plan of care as noted below. Goals updated on 04/12/2024. Goals for Episode of Care: established 12/19/23 [place] in home exercise program. Met Patient will decrease pain rating by 2 points to meet minimal clinical important difference for numeric pain rating scale. Partially met Patient will increase active ROM of cervical spine and L knee to WNL to allow pt to to improve performance of ADLs. Progressing Patient will demonstrate increase in L knee strength to 4+/5 during manual muscle testing in order to improve function for basic self-care tasks, home management tasks, and prior functional tasks. Progressing Sleep throughout the night without pain/symptoms. Progressing Planned Interventions, Frequency, and Duration: 1x/week, 4 weeks Total Number of Visits Planned: 4 Patient to be seen for Therapeutic exercise (85512), Neuromuscular re-education (75764), Manual therapy (35402), Therapeutic activities (77231), Self-residential management (07896), Patient/Family/Caregiver Education, Body Mechanics Training PLAN FOR NEXT VISIT: manual as needed to L cervical mm SUBJECTIVE: Patient has been doing well, she almost made it a month before the pain returned. 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 Knee has been good, zero issues for close to 2 months now. Functional Limitations: bending, lifting, working, sleeping Pain: Pain Pain Level: 4 Pain Location: Neck - Left Description: Sharp, Tightness Frequency: Continuous PROMIS Scales 04/11/2024 03/06/2024 02/07/2024 Higher is Better Phys Func - T Score 52 (within normal limits) 52 (within normal limits) 45 (within normal limits) Phys Func - Percentile 58 58 31 Self-Eff Symptom - T Score 46 (Average) 46 (Average) 42 (Average) Self-Eff Symptom - Percentile 34 34 21 03/26/2024 02/11/2020 01/14/2020 Lower is Better Pain Interference - T Score 53 (within normal limits) 56 (mild) 62 (moderate) Pain Interference - Percentile 38 27 12 T-scores: mean of general population = 50. 5 points is clinically meaningfully difference Percentiles provide an indication of how the patient's score ranks in relation to the general population. Higher percentile rankings indicate better function/quality of life. 50th percentile is the average of the general population and indicates half of respondents had a worse score. OBJECTIVE MEASURES WITH LEVEL OF FUNCTION: Spine Observations L Cervical Spine Palpation Tenderness: Upper trapezius, Levator scapulae Cervical Spine ROM Cervical Flexion AROM: Normal Cervical Extension AROM: Normal Cervical Side-Bend Right AROM: Moderate limitation Cervical Side-Bend Left AROM: Minimal limitation Cervical Rotation Right AROM: Minimal limitation Cervical Rotation Left AROM: Moderate limitation TREATMENT: Manual Therapy: 1: Objective measures obtained 2: STM, CFM, and stripping to L upper trap with push to tolerance 3: Manual cervical traction x5 min Skilled Intervention: Manual skills to improve joint mobility, ROM, and decrease pain. Utilized anatomy knowledge of the therapist, and assessment of patient's response to intervention. Billing Manual TherapyTreatment Minutes: 39 Skilled Treatment Time Minutes (timed and untimed codes): 39 Total Session Time (minutes): 39 Session Start Time : 1057 Session Stop Time : 1136 Darryl Cardenas, [facility]02-06-2025 History of Present illness Narrative* Darryl Cardenas, PT - 04/12/2024 12:57 PM EST Images from the original note were not included. Episode Visit Count: 8 Therapist That Will Accept/Oversee The Plan Of Care: Alonso Patricio Start of Care Date: 12/19/23 Onset Date: 02/18/24 Plan of Care Certification Date: 04/12/24 Next Certification Due Date: 06/10/24 REHABILITATION AND SPORTS THERAPY PHYSICAL THERAPY PROGRESS REPORT PLAN OF CARE UPDATE: Assessment: Jaz Dukes demonstrates moderate improvement in heavy exertion, sleeping, and driving. The patient has progressed toward goals. Patient continues to present with impairments in ADL's, overall function, range of motion, symptom management, and tissue tenderness that interfere with bending, lifting, working, sleeping . Current prognosis is Excellent due to: current objective clinical presentation, good overall health status, positive past response to therapy, within-session changes, good support system/ coping skills . The patient will benefit from continued skilled therapy services to meet the updated goals for this plan of care as noted below. Goals updated on 04/12/2024. Goals for Episode of Care: established 12/19/23 [place] in home exercise program. Met Patient will decrease pain rating by 2 points to meet minimal clinical important difference for numeric pain rating scale. Partially met Patient will increase active ROM of cervical spine and L knee to WNL to allow pt to to improve performance of ADLs. Progressing Patient will demonstrate increase in L knee strength to 4+/5 during manual muscle testing in order to improve function for basic self-care tasks, home management tasks, and prior functional tasks. Progressing Sleep throughout the night without pain/symptoms. Progressing Planned Interventions, Frequency, and Duration: 1x/week, 4 weeks Total Number of Visits Planned: 4 Patient to be seen for Therapeutic exercise (48161), Neuromuscular re-education (60593), Manual therapy (82773), Therapeutic activities (68921), Self-residential management (55743), Patient/Family/Caregiver Education, Body Mechanics Training PLAN FOR NEXT VISIT: manual as needed to L cervical mm SUBJECTIVE: Patient has been doing well, she almost made it a month before the pain returned. 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 Knee has been good, zero issues for close to 2 months now. Functional Limitations: bending, lifting, working, sleeping Pain: Pain Pain Level: 4 Pain Location: Neck - Left Description: Sharp, Tightness Frequency: Continuous PROMIS Scales 04/11/2024 03/06/2024 02/07/2024 Higher is Better Phys Func - T Score 52 (within normal limits) 52 (within normal limits) 45 (within normal limits) Phys Func - Percentile 58 58 31 Self-Eff Symptom - T Score 46 (Average) 46 (Average) 42 (Average) Self-Eff Symptom - Percentile 34 34 21 03/26/2024 02/11/2020 01/14/2020 Lower is Better Pain Interference - T Score 53 (within normal limits) 56 (mild) 62 (moderate) Pain Interference - Percentile 38 27 12 T-scores: mean of general population = 50. 5 points is clinically meaningfully difference Percentiles provide an indication of how the patient's score ranks in relation to the general population. Higher percentile rankings indicate better function/quality of life. 50th percentile is the average of the general population and indicates half of respondents had a worse score. OBJECTIVE MEASURES WITH LEVEL OF FUNCTION: Spine Observations L Cervical Spine Palpation Tenderness: Upper trapezius, Levator scapulae Cervical Spine ROM Cervical Flexion AROM: Normal Cervical Extension AROM: Normal Cervical Side-Bend Right AROM: Moderate limitation Cervical Side-Bend Left AROM: Minimal limitation Cervical Rotation Right AROM: Minimal limitation Cervical Rotation Left AROM: Moderate limitation TREATMENT: Manual Therapy: 1: Objective measures obtained 2: STM, CFM, and stripping to L upper trap with push to tolerance 3: Manual cervical traction x5 min Skilled Intervention: Manual skills to improve joint mobility, ROM, and decrease pain. Utilized anatomy knowledge of the therapist, and assessment of patient's response to intervention. Billing Manual TherapyTreatment Minutes: 39 Skilled Treatment Time Minutes (timed and untimed codes): 39 Total Session Time (minutes): 39 Session Start Time : 1057 Session Stop Time : 1136 Darryl Cardenas PT [facility] History of Present illness Narrative* Liza Patricio, PT - 03/30/2024 9:53 AM EST Images from the original note were not included. Episode Visit Count: 7 Therapist That Will Accept/Oversee The Plan Of Care: Alonso Patricio Start of Care Date: 12/19/23 Onset Date: 02/18/24 Plan of Care Certification Date: 02/18/24 Next Certification Due Date: 04/20/24 Patient Identified by Name and Date of : Yes REHABILITATION AND SPORTS THERAPY PHYSICAL THERAPY DISCONTINUANCE OF CARE PLAN OF CARE UPDATE: Assessment: Jaz Dukes is discontinued from Physical Therapy services due to goal achievement and maximal benefit. and Patient/Clinician mutual decision to discontinue current plan of care.. Patient was seen for 7 visits from Start of Care Date: 12/19/23 to 03/30/2024 and treatment included: Therapeutic exercise and Modalities: Biofeedback/Incontinence. Goals updated on 02/17/2024. Goals for Episode of Care: established 11/10/23 Patient demonstrates independence and compliance with home exercise program. Patient to increase strength of pelvic floor to Power 5/5, Endurance 10/10, and Repetitions 10/10 in order to improve bladder/bowel control. Patient to correctly isolate pelvic floor muscles without compensatory patterns of breath holding, adductor use, gluteal use, and abdominal use to improve bladder/bowel control. Patient reports decreased frequency of urine/stool leakage to 0 times per day to demonstrate improved bladder/bowel control and increase confidence in community/social settings. Patient reports 100% less bladder/bowel leaks with external trigger to avoid incontinent episodes. Patient reports 100% improvement in bladder/bowel leaks while coughing/sneezing compared to evaluation in order to increase bladder and bowel function in activities of daily living. Patient can perform all activities of daily living, work, and recreational activities with 100 % bladder/bowel continence. Patient Goals: normal bladder function Goals updated on 03/09/2024. Knee and neck goals: Goals for Episode of Care: established 12/19/23 [place] in home exercise program. Met Patient will decrease pain rating by 2 points to meet minimal clinical important difference for numeric pain rating scale. Partially met Patient will increase active ROM of cervical spine and L knee to WNL to allow pt to to improve performance of ADLs. Progressing Patient will demonstrate increase in L knee strength to 4+/5 during manual muscle testing in order to improve function for basic self-care tasks, home management tasks, and prior functional tasks. Progressing Sleep throughout the night without pain/symptoms. Progressing SUBJECTIVE: Pt states that symtpoms are now managable and feels ready to be finished with PT after today's session.. Patient Goals: normal bladder function Pain: Pain Pain Level: 0 PROMIS Scales 03/06/2024 02/07/2024 01/10/2024 Higher is Better Phys Func - T Score 52 (within normal limits) 45 (within normal limits) 45 (within normal limits) Phys Func - Percentile 58 Self-Eff Symptom - T Score 46 (Average) 42 (Average) 48 (Average) Self-Eff Symptom - Percentile 34 21 42 03/26/2024 02/11/2020 01/14/2020 Lower is Better Pain Interference - T Score 53 (within normal limits) 56 (mild) 62 (moderate) Pain Interference - Percentile 38 27 12 T-scores: mean of general population = 50. 5 points is clinically meaningfully difference Percentiles provide an indication of how the patient's score ranks in relation to the general population. Higher percentile rankings indicate better function/quality of life. 50th percentile is the average of the general population and indicates half of respondents had a worse score. OBJECTIVE MEASURES WITH LEVEL OF FUNCTION: TREATMENT: Therapeutic Exercise: 1: review of kegels for PFMT at home 2: hooklying hip abd w/blue t-band 20 x 3: hooklying hip add w/ball 20 x 4: GS progressed to bridge hold 20 x 5: SLR 10 x B 6: hooklying l-stab marches Skilled Intervention: Patient was educated in proper exercise technique and purpose for exercises. Skilled judgment was used in selection of appropriate interventions. Modalities: Biofeedback/Pelvic Health Biofeedback/Incontinence: [employer] biofeedback PFMT for urinary incontinence program J for 5 sec on, 10 sec off in seated with instruction throughout on proper contract/relax; additional time for proper set up and education Skilled Intervention: Proper administration and selection of modality based on clinical presentation, deficits, and needs. Patient response monitored throughout treatment. Billing Therapeutic Exercise Treatment Minutes: 13 Biofeedback Pelvic Health Initial 15 min Treatment Minutes: 15 Biofeedback Pelvic Health Ea Addtl 15 min Treatment Minutes: 12 Skilled Treatment Time Minutes (timed and untimed codes): 40 Total Session Time (minutes): 40 Session Start Time : 1115 Session Stop Time : 1155 Liza Patricio PT [facility] Telephone encounter Note * Telephone Encounter - Stuart Rojas PSYD - 03/21/2024 8:11 PM EST Yes, she is very welcome to schedule. Thank you for checking! [facility] Miscellaneous Notes* Telephone Encounter - Stuart Rojas PSYD - 03/21/2024 8:11 PM EST Yes, she is very welcome to schedule. Thank you for checking! * Telephone Encounter - Mary March - 03/19/2024 8:18 AM EST Patient made a mychart request for an appointment with you. It appears that she has not been seen since 2022. Is she able to still book an appointment and re- establish or/and does she need another referral from her PCP. documented in [facility]01-[facility]25 Telephone encounter Note * Telephone Encounter - Mary March - 03/19/2024 8:18 AM EST Patient made a mychart request for an appointment with you. It appears that she has not been seen since 2022. Is she able to still book an appointment and re- establish or/and does she need another referral from her PCP. [facility]01[facility] NoteHNO ID: [id number] Author: DARRYL CARDENAS PT Service: ? Author Type: Physical Therapist Type: Progress Notes Filed: 03/12/2024 11:22 Note Text: Episode Visit Count: 7 Therapist That Will Accept/Oversee The Plan Of Care: Alonso Patricio Start of Care Date: 12/19/23 Onset Date: 02/18/24 Plan of Care Certification Date: 02/18/24 Next Certification Due Date: 04/20/24 REHABILITATION AND SPORTS THERAPY PHYSICAL THERAPY PROGRESS REPORT PLAN OF CARE UPDATE: Assessment: Jaz Dukes demonstrates moderate improvement in rising from a chair, standing, and stair negotiation. The patient has progressed toward goals. Patient continues to present with impairments in overall function, range of motion, strength, symptom management, and tissue tenderness that interfere with kneeling, squatting . Current prognosis is Excellent due to: current objective clinical presentation, good overall health status, positive past response to therapy, within-session changes, good support system/ coping skills . The patient will benefit from continued skilled therapy services to meet the updated goals for this plan of care as noted below. Goals updated on 02/17/2024. Goals for Episode of Care: established 11/10/23 Patient demonstrates independence and compliance with home exercise program. Patient to increase strength of pelvic floor to Power 5/5, Endurance 10/10, and Repetitions 10/10 in order to improve bladder/bowel control. Patient to correctly isolate pelvic floor muscles without compensatory patterns of breath holding, adductor use, gluteal use, and abdominal use to improve bladder/bowel control. Patient reports decreased frequency of urine/stool leakage to 0 times per day to demonstrate improved bladder/bowel control and increase confidence in community/social settings. Patient reports 100% less bladder/bowel leaks with external trigger to avoid incontinent episodes. Patient reports 100% improvement in bladder/bowel leaks while coughing/sneezing compared to evaluation in order to increase bladder and bowel function in activities of daily living. Patient can perform all activities of daily living, work, and recreational activities with 100 % bladder/bowel continence. Patient Goals: normal bladder function Goals updated on 03/09/2024. Knee and neck goals: Goals for Episode of Care: established 12/19/23 [place] in home exercise program. Met Patient will decrease pain rating by 2 points to meet minimal clinical important difference for numeric pain rating scale. Partially met Patient will increase active ROM of cervical spine and L knee to WNL to allow pt to to improve performance of ADLs. Progressing Patient will demonstrate increase in L knee strength to 4+/5 during manual muscle testing in order to improve function for basic self-care tasks, home management tasks, and prior functional tasks. Progressing Sleep throughout the night without pain/symptoms. Progressing Time Frame for Goals and Treatment : 05/02/24 Planned Interventions, Frequency, and Duration: 1x/month, 4 weeks Total Number of Visits Planned: 1 Patient to be seen for Therapeutic exercise (81411), Neuromuscular re-education (61947), Manual therapy (40230), Therapeutic activities (17674), Self-residential management (37727), Patient/Family/Caregiver Education, Body Mechanics Training, Gait Training ([id number]) PLAN FOR NEXT VISIT: [place] vs [place] SUBJECTIVE: Overall patient improving, but still has intermittent times of tightness and some pain. Knee pain is better, but neck/shoulder still hurts on occasion. Functional Limitations: kneeling, squatting Pain: Pain Pain Level: 1 Pain Location: Neck - Left Description: Aching, Tightness Frequency: Continuous Pain Level 2: 0 Pain Location 2: Knee - Left Frequency 2: Continuous PROMIS Scales 03/06/2024 02/07/2024 01/10/2024 Higher is Better Phys Func - Score 52 (within normal limits) 45 (within normal limits) 45 (within normal limits) Phys Func - Percentile 58 31 31 Self-Eff Symptom - Score 46 (Average) 42 (Average) 48 (Average) Self-Eff Symptom - Percentile 34 21 42 T-scores: mean of general population = 50. 5 points is clinically meaningfully difference Percentiles provide an indication of how the patient's score ranks in relation to the general population. Higher percentile rankings indicate better function/quality of life. 50th percentile is the average of the general population and indicates half of respondents had a worse score. OBJECTIVE MEASURES WITH LEVEL OF FUNCTION: Spine Observations L Cervical Spine Palpation Tenderness: Upper trapezius, Levator scapulae Cervical Spine ROM Cervical Flexion AROM: Minimal limitation Cervical Extension AROM: Normal Cervical Side-Bend Right AROM: Moderate limitation Cervical Side-Bend Left AROM: Moderate limitation Cervical Rotation Right AROM: Moderate limitation Cervical Rotation Left AROM: Moderat (more content not included)...[facility]01-06-2025 History of Present illness Narrative* Darryl Cardenas, PT - 03/12/2024 11:13 AM EST Episode Visit Count: 7 Therapist That Will Accept/Oversee The Plan Of Care: Alonso Patricio Start of Care Date: 12/19/23 Onset Date: 02/18/24 Plan of Care Certification Date: 02/18/24 Next Certification Due Date: 04/20/24 REHABILITATION AND SPORTS THERAPY PHYSICAL THERAPY PROGRESS REPORT PLAN OF CARE UPDATE: Assessment: Jaz Dukes demonstrates moderate improvement in rising from a chair, standing, and stair negotiation. The patient has progressed toward goals. Patient continues to present with impairments in overall function, range of motion, strength, symptom management, and tissue tenderness that interfere with kneeling, squatting . Current prognosis is Excellent due to: current objective clinical presentation, good overall health status, positive past response to therapy, within-session changes, goodsupport system/ coping skills . The patient will benefit from continued skilled therapy services tomeet the updated goals for this plan of care as noted below. Goals updated on 02/17/2024. Goals for Episode of Care: established 11/10/23 Patient demonstrates independence and compliance with home exercise program. Patient to increase strength of pelvic floor to Power 5/5, Endurance 10/10, and Repetitions 10/10 in order to improve bladder/bowel control. Patient to correctly isolate pelvic floor muscles without compensatory patterns of breath holding, adductor use, gluteal use, and abdominal use to improve bladder/bowel control. Patient reports decreased frequency of urine/stool leakage to 0 times per day to demonstrate improved bladder/bowel control and increase confidence in community/social settings. Patient reports 100% less bladder/bowel leaks with external trigger to avoid incontinent episodes. Patient reports 100% improvement in bladder/bowel leaks while coughing/sneezing compared to evaluation in order to increase bladder and bowel function in activities of daily living. Patient can perform all activities of daily living, work, and recreational activities with 100 % bladder/bowel continence. Patient Goals: normal bladder function Goals updated on 03/09/2024. Knee and neck goals: Goals for Episode of Care: established 12/19/23 [place] in home exercise program. Met Patient will decrease pain rating by 2 points to meet minimal clinical important difference for numeric pain rating scale. Partially met Patient will increase active ROM of cervical spine and L knee to WNL to allow pt to to improve performance of ADLs. Progressing Patient will demonstrate increase in L knee strength to 4+/5 during manual muscle testing in order to improve function for basic self-care tasks, home management tasks, and prior functional tasks. Progressing Sleep throughout the night without pain/symptoms. Progressing Time Frame for Goals and Treatment : 05/02/24 Planned Interventions, Frequency, and Duration: 1x/month, 4 weeks Total Number of Visits Planned: 1 Patient to be seen for Therapeutic exercise (02763), Neuromuscular re-education (57754), Manual therapy (79119), Therapeutic activities (51258), Self-residential management (70359), Patient/Family/Caregiver Education, Body Mechanics Training, Gait Training ([id number]) PLAN FOR NEXT VISIT: [place] vs [place] SUBJECTIVE: Overall patient improving, but still has intermittent times of tightness and some pain.Knee pain is better, but neck/shoulder still hurts on occasion. Functional Limitations: kneeling, squatting Pain: Pain Pain Level: 1 Pain Location: Neck - Left Description: Aching, Tightness Frequency: Continuous Pain Level 2: 0 Pain Location 2: Knee - Left Frequency 2: Continuous PROMIS Scales 03/06/2024 02/07/2024 01/10/2024 Higher is Better Phys Func - Score 52 (within normal limits) 45 (within normal limits) 45 (within normal limits) Phys Func - Percentile 58 31 31 Self-Eff Symptom - Score 46 (Average) 42 (Average) 48 (Average) Self-Eff Symptom - Percentile 34 21 42 T-scores: mean of general population = 50. 5 points is clinically meaningfully difference Percentiles provide an indication of how the patient's score ranks in relation to the general population. Higher percentile rankings indicate better function/quality of life. 50th percentile is the average of the general population and indicates half of respondents had a worse score. OBJECTIVE MEASURES WITH LEVEL OF FUNCTION: Spine Observations L Cervical Spine Palpation Tenderness: Upper trapezius, Levator scapulae Cervical Spine ROM Cervical Flexion AROM: Minimal limitation Cervical Extension AROM: Normal Cervical Side-Bend Right AROM: Moderate limitation Cervical Side-Bend Left AROM: Moderate limitation Cervical Rotation Right AROM: Moderate limitation Cervical Rotation Left AROM: Moderate limitation LE AROM L Knee Extension: 0 Degrees L Knee Flexion: 130 Degrees LE Strength L Knee Extension (L3): 4/5 TREATMENT: Therapeutic Exercise: 1: Reviewed HEP for hip/knee 2: Objective measures obtained Skilled Intervention: Patient was educated in proper exercise technique and purpose for exercises. Skilled judgment was used in selection of appropriate interventions. Provided written instruction for home exercise program to facilitate proper performance and compliance. Correct performance of therapeutic exercises was facilitated with verbal, visual, and tactile cuing. Manual Therapy: 1: STM to L upper trap, levator, and cervical paraspinals with push to tolerance 2: Manual cervical traction x5 min Skilled Intervention: Manual skills to improve joint mobility, ROM, and decrease pain. Utilized anatomy knowledge of the therapist, and assessment of patient's response to intervention. Billing Therapeutic Exercise Treatment Minutes: 15 Manual TherapyTreatment Minutes: 29 Skilled Treatment Time Minutes (timed and untimed codes): 44 Total Session Time (minutes): 44 Session Start Time : 1316 Session Stop Time : 1400 Darryl Cardenas PT documented [facility]12[facility]24 NoteHNO ID: [id number] Author: LIZA PATRICIO PT Service: ? Author Type: Physical Therapist Type: Progress Notes Filed: 03/02/2024 12:29 Note Text: Episode Visit Count: 6 Therapist That Will Accept/Oversee The Plan Of Care: Alonso Patricio Start of Care Date: 12/19/23 Onset Date: 02/18/24 Plan of Care Certification Date: 02/18/24 Next Certification Due Date: 04/20/24 Patient Identified by Name and Date of : Yes REHABILITATION AND SPORTS THERAPY PHYSICAL THERAPY TREATMENT NOTE ASSESSMENT: Jaz Dukes tolerated the session with no issues. She demonstrated improvements in ability to progress core stability to standing. The patient will continue to benefit from ongoing skilled physical therapy to progress toward set goals. PLAN FOR NEXT VISIT: continue to progress PFMT and core stability SUBJECTIVE: Pt reports being busy over the holidays. Pt experienced incident of urinary incontinence, which she attributes to delay in voiding. Patient Goals: normal bladder function Functional Limitations: walking, stair negotiation, kneeling, squatting Pain: Pain Pain Level: 0 Pain Location: Low Back/Lumbar Spine- Midline Post Treatment Pain Post Treatment Pain Level: No Change OBJECTIVE MEASURES WITH LEVEL OF FUNCTION: TREATMENT: Therapeutic Exercise: 2: seated hip add 20 x 10 sec 5: seated hip abd blue t-band 20 x 5 sec 6: seated l-stab marches 20 x B alternating with cues for TA activation 7: l-stab in standing rows, shld ext 20 x each andrews t-band Skilled Intervention: Patient was educated in proper exercise technique and purpose for exercises. Skilled judgment was used in selection of appropriate interventions. Modalities: Biofeedback/Pelvic Health Biofeedback/Incontinence: Promethius biofeedback PFMT for urinary incontinence program J for 5 sec on, 10 sec off in seated with instruction throughout on proper contract/relax; additional time for proper set up and education Skilled Intervention: Proper administration and selection of modality based on clinical presentation, deficits, and needs. Patient response monitored throughout treatment. Billing Therapeutic Exercise Treatment Minutes: 15 Biofeedback Pelvic Health Initial 15 min Treatment Minutes: 15 Biofeedback Pelvic Health Ea Addtl 15 min Treatment Minutes: 12 Skilled Treatment Time Minutes (timed and untimed codes): 42 Total Session Time (minutes): 42 Session Start Time : 1033 Session Stop Time : [address] [facility] of Present illness Narrative* JewelsgodfreyBoniel Consuelo, PT - 03/02/2024 12:28 PM EST Episode Visit Count: 6 Therapist That Will Accept/Oversee The Plan Of Care: Alonso Patricio Start of Care Date: 12/19/23 Onset Date: 02/18/24 Plan of Care Certification Date: 02/18/24 Next Certification Due Date: 04/20/24 Patient Identified by Name and Date of : Yes REHABILITATION AND SPORTS THERAPY PHYSICAL THERAPY TREATMENT NOTE ASSESSMENT: Jaz Ledesma Ernst tolerated the session with no issues. She demonstrated improvements in ability to progress core stability to standing. The patient will continue to benefit from ongoing skilled physical therapy to progress toward set goals. PLAN FOR NEXT VISIT: continue to progress PFMT and core stability SUBJECTIVE: Pt reports being busy over the holidays. Pt experienced incident of urinary incontinence, which she attributes to delay in voiding. Patient Goals: normal bladder function Functional Limitations: walking, stair negotiation, kneeling, squatting Pain: Pain Pain Level: 0 Pain Location: Low Back/Lumbar Spine- Midline Post Treatment Pain Post Treatment Pain Level: No Change OBJECTIVE MEASURES WITH LEVEL OF FUNCTION: TREATMENT: Therapeutic Exercise: 2: seated hip add 20 x 10 sec 5: seated hip abd blue t-band 20 x 5 sec 6: seated l-stab marches 20 x B alternating with cues for TA activation 7: l-stab in standing rows, shld ext 20 x each andrews t-band Skilled Intervention: Patient was educated in proper exercise technique and purpose for exercises. Skilled judgment was used in selection of appropriate interventions. Modalities: Biofeedback/Pelvic Health Biofeedback/Incontinence: Promethius biofeedback PFMT for urinary incontinence program J for 5 sec on, 10 sec off in seated with instruction throughout on proper contract/relax; additional time for proper set up and education Skilled Intervention: Proper administration and selection of modality based on clinical presentation, deficits, and needs. Patient response monitored throughout treatment. Billing Therapeutic Exercise Treatment Minutes: 15 Biofeedback Pelvic Health Initial 15 min Treatment Minutes: 15 Biofeedback Pelvic Health Ea Addtl 15 min Treatment Minutes: 12 Skilled Treatment Time Minutes (timed and untimed codes): 42 Total Session Time (minutes): 42 Session Start Time : 1033 Session Stop Time : 1115 Liza Patricio PT [facility] NoteHNO ID: [id number] Author: LIZA PATRICIO PT Service: ? Author Type: Physical Therapist Type: Progress Notes Filed: 02/23/2024 14:06 Note Text: Episode Visit Count: 5 Therapist That Will Accept/Oversee The Plan Of Care: Alonso Patricio Start of Care Date: 12/19/23 Onset Date: 02/18/24 Plan of Care Certification Date: 02/18/24 Next Certification Due Date: 04/20/24 Patient Identified by Name and Date of : Yes REHABILITATION AND SPORTS THERAPY PHYSICAL THERAPY TREATMENT NOTE ASSESSMENT: Jaz Dukes tolerated the session with no issues. She demonstrated need for shortened session today. The patient will continue to benefit from ongoing skilled physical therapy to progress toward set goals. PLAN FOR NEXT VISIT: continue to progress PFMT and core stability SUBJECTIVE: Pt states that she is noticing an improvement in urinary incontinence. Pt still with concerns just when she delays voiding, but no longer having symtpoms with coughing and sneezing. Patient Goals: normal bladder function Functional Limitations: walking, stair negotiation, kneeling, squatting Pain: Pain Pain Level: 0 Pain Location: Low Back/Lumbar Spine- Midline Post Treatment Pain Post Treatment Pain Level: No Change OBJECTIVE MEASURES WITH LEVEL OF FUNCTION: TREATMENT: Therapeutic Exercise: 2: seated hip add 20 x 10 sec 5: seated hip abd blue t-band 20 x 5 sec 6: seated l-stab marches 20 x B alternating with cues for TA activation Skilled Intervention: Patient was educated in proper exercise technique and purpose for exercises. Skilled judgment was used in selection of appropriate interventions. Modalities: Biofeedback/Pelvic Health Biofeedback/Incontinence: Promethius biofeedback PFMT for urinary incontinence program J for 5 sec on, 10 sec off in seated with instruction throughout on proper contract/relax; additional time for proper set up and education Skilled Intervention: Proper administration and selection of modality based on clinical presentation, deficits, and needs. Patient response monitored throughout treatment. Billing Therapeutic Exercise Treatment Minutes: 8 Biofeedback Pelvic Health Initial 15 min Treatment Minutes: 15 Biofeedback Pelvic Health Ea Addtl 15 min Treatment Minutes: 11 Skilled Treatment Time Minutes (timed and untimed codes): 34 Total Session Time (minutes): 34 Session Start Time : 1032 Session Stop Time : [address] [facility] History of Present illness Narrative* Liza Patricio, PT - 02/23/2024 10:33 AM EST Episode Visit Count: 5 Therapist That Will Accept/Oversee The Plan Of Care: Alonso Patricio Start of Care Date: 12/19/23 Onset Date: 02/18/24 Plan of Care Certification Date: 02/18/24 Next Certification Due Date: 04/20/24 Patient Identified by Name and Date of : Yes REHABILITATION AND SPORTS THERAPY PHYSICAL THERAPY TREATMENT NOTE ASSESSMENT: Jaz Dukes tolerated the session with no issues. She demonstrated need for shortened session today. The patient will continue to benefit from ongoing skilled physical therapy to progress toward set goals. PLAN FOR NEXT VISIT: continue to progress PFMT and core stability SUBJECTIVE: Pt states that she is noticing an improvement in urinary incontinence. Pt still with concerns just when she delays voiding, but no longer having symtpoms with coughing and sneezing. Patient Goals: normal bladder function Functional Limitations: walking, stair negotiation, kneeling, squatting Pain: Pain Pain Level: 0 Pain Location: Low Back/Lumbar Spine- Midline Post Treatment Pain Post Treatment Pain Level: No Change OBJECTIVE MEASURES WITH LEVEL OF FUNCTION: TREATMENT: Therapeutic Exercise: 2: seated hip add 20 x 10 sec 5: seated hip abd blue t-band 20 x 5 sec 6: seated l-stab marches 20 x B alternating with cues for TA activation Skilled Intervention: Patient was educated in proper exercise technique and purpose for exercises. Skilled judgment was used in selection of appropriate interventions. Modalities: Biofeedback/Pelvic Health Biofeedback/Incontinence: Promethius biofeedback PFMT for urinary incontinence program J for 5 sec on, 10 sec off in seated with instruction throughout on proper contract/relax; additional time for proper set up and education Skilled Intervention: Proper administration and selection of modality based on clinical presentation, deficits, and needs. Patient response monitored throughout treatment. Billing Therapeutic Exercise Treatment Minutes: 8 Biofeedback Pelvic Health Initial 15 min Treatment Minutes: 15 Biofeedback Pelvic Health Ea Addtl 15 min Treatment Minutes: 11 Skilled Treatment Time Minutes (timed and untimed codes): 34 Total Session Time (minutes): 34 Session Start Time : 1032 Session Stop Time : 1106 Liza Patricio PT [facility]24 NoteHNO ID: [id number] Author: MICAH HIGH MD Service: ? Author Type: Physician Type: Progress Notes Filed: 02/21/2024 16:15 Note Text: Jaz Dukes is a 68 year old female here for a Medicare wellness visit. Medicare Health Risk Assessment General Health Very good Exercise: Minutes/Day 60 min Exercise: Days/Week 0 days she does this 7 days a week. Alcohol: Daily Use 2-3 times a week Alcohol: Drinks/Day 1 or 2 Alcohol: 6 or more drinks Never Feel off balance No Concerns: Teeth/Dentures No Concerns: Sexual function No Troubled by feelings Anxious; Stressed Frequency: Eating healthy diet Nearly every day ADLs requiring help None of the above Safety precautions in home/vehicle Yes Smoke, vape, chews tobacco No Difficulty hearing No Difficulty seeing No Current Providers Specialists: I have reviewed specialist-related care of the patient in the medical record. Medical/Family history review Reviewed and updated problem list, medical/surgical/family/social history, medications, and allergies. Opioid use review Opioid Medications (last 90 days) No data to display Anxiety/Depression screening Recommendation: no further intervention at this time Cognitive screening Mini Cog Score: 4 Cognitive screening reviewed and No further action needed (score 3-5). Functional Observation Was the patient's Timed Up AND Go test unsteady or >= 12 seconds? No Advance Care Planning Surrogate decision maker and/or advance care plan documented Measurements BP 124/80 Pulse 70 Resp 16 Wt 60.8 kg (134 lb) LMP 12/12/2009 BMI 25.11 kg/m? Vision Screening: Follows with optometry/ophthalmology Assessment/Plan Medicare annual wellness visit, subsequent (Z00.00) - Counseled on healthy diet and regular exercise - Fall avoidance information provided - Personalized prevention plan provided Reason for Visit Patient presents with: Medicare Wellness Exam Jaz Dukes is a 68 year old female who presents here today for Above Complaints.. Health Maintenance Advance Directive Discussion HPI Emilee is a very pleasant 68-year-old with a past medical history of hypertension, depression, hyperlipidemia, anxiety especially for flying and hair loss. Some stress in the past week, with friend who is sick, and passed, and other unexpected and issues. and she has to care for her cats, helps taking care of her OLIVIA. All the illness can be overwhelming for her. She is on zoloft at 100 mgs and it is doing well for her. 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 On Minoxidil anad finsteride and she is growing back hair slowly. She is on the minoxidil and finasteride. Left knee pain: she walks at the [employer], usually walks there. She fell on her left knee and since then she has been having trouble with water under the knee at the end of the day. In the evening and night it is all swollen. In the morning when she wakes up it and moves it, it hurts her. Resting does not hurt. During the day it gets worse and swelling in the evening with out much pain. It is kind of consistent but more swollen in the evening. Brufen helps relieve the pain. She is also taking the benadryl helps her. Has not used a knee brace still. Update 02/21/2024: Patient still has some pain but manageable, changing of shoes helped her. Patient has been having shoulder pain for the past few weeks, certain movements maker her feel like she has a stabbing pain at the point where the levator scapula is attached. She is on the zetia, for her lipids, ldl is almost at target. No problem-specific Assessment AND Plan notes found for this encounter. PAST MEDICAL HISTORY Diagnosis Date Abnormal glandular Papanicolaou smear of cervix 04/23/2005 Abn. 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 Hypertension Internal hemorrhoids without mention of complication Irregular menstrual cycle perimenopausal bleeding Snoring PAST SURGICAL HISTORY Procedure Laterality Date BIOPSY BREAST OPEN INCISIONAL 11/28/2000 left breast COLONOSCOPY FLX DX W/COLLJ SPEC WHEN PFRMD 05/17/2006 COLONOSCOPY FLX DX W/COLLJ SPEC WHEN PFRMD 06/16/2017 Colonoscopy COLPOSCOPY CERVIX UPPER/ADJACENT VAGINA 07/15/2000 Colposcopy CONIZATION CERVIX W/WO DANDC RPR ELTRD EXC 08/03/2000 LEEP-Cervix LIG/TRNSXJ FLP TUBE ABDL/VAG APPR UNI/BI 05/27/1992 Tubal ligation, BPS OTHER MOHS- removal of squamous cells PAST SURGICAL HISTORY OF 1981 Broken Nose Repair PAST SURGICAL HISTORY OF 09/17/2004 EMB PAST SURGICAL HISTORY OF 09/2004 BONE DENSITTY SKIN BX, 1 LESION 12/15/2000 basal cell CA, on face SKIN EXCISION 12/23/2021 excision skin cyst lower back TONSILLECTOMY PRIMARY/SECONDARY Tonsillectomy FAMILY HISTORY Problem Relation Age of Onset Diabetes Father non-insulin (more content not included)...[facility]12-17-2024 History of Present illness Narrative* Micah High MD - 02/21/2024 1:10 PM EST Images from the original note were not included. Jaz Dukes is a 68 year old female here for a Medicare wellness visit. Medicare Health Risk Assessment General Health Very good Exercise: Minutes/Day 60 min Exercise: Days/Week 0 days she does this 7 days a week. Alcohol: Daily Use 2-3 times a week Alcohol: Drinks/Day 1 or 2 Alcohol: 6 or more drinks Never Feel off balance No Concerns: Teeth/Dentures No Concerns: Sexual function No Troubled by feelings Anxious; Stressed Frequency: Eating healthy diet Nearly every day ADLs requiring help None of the above Safety precautions in home/vehicle Yes Smoke, vape, chews tobacco No Difficulty hearing No Difficulty seeing No Current Providers Specialists: I have reviewed specialist-related care of the patient in the medical record. Medical/Family history review Reviewed and updated problem list, medical/surgical/family/social history, medications, and allergies. Opioid use review Opioid Medications (last 90 days) No data to display Anxiety/Depression screening Recommendation: no further intervention at this time Cognitive screening Mini Cog Score: 4 Cognitive screening reviewed and No further action needed (score 3-5). Functional Observation Was the patient's Timed Up & Go test unsteady or >= 12 seconds? No Advance Care Planning Surrogate decision maker and/or advance care plan documented Measurements BP 124/80 Pulse 70 Resp 16 Wt 60.8 kg (134 lb) LMP 12/12/2009 BMI 25.11 kg/m Vision Screening: Follows with optometry/ophthalmology Assessment/Plan Medicare annual wellness visit, subsequent (Z00.00) - Counseled on healthy diet and regular exercise - Fall avoidance information provided - Personalized prevention plan provided Reason for Visit Patient presents with: Medicare Wellness Exam Jaz Dukes is a 68 year old female who presents here today for Above Complaints.. Health Maintenance Advance Directive Discussion HPI Emilee is a very pleasant 68-year-old with a past medical history of hypertension, depression, hyperlipidemia, anxiety especially for flying and hair loss. Some stress in the past week, with friend who is sick, and passed, and other unexpected and issues. and she has to care for her cats, helps taking care of her OLIVIA. All the illness can be overwhelming for her. She is on zoloft at 100 mgs and it is doing well for her. 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 On Minoxidil anad finsteride and she is growing back hair slowly. She is on the minoxidil and finasteride. Left knee pain: she walks at the [employer], usually walks there. She fell on her left kneeand since then she has been having trouble with water under the knee at the end of the day. In the evening and night it is all swollen. In the morning when she wakes up it and moves it, it hurts her.Resting does not hurt. During the day it gets worse and swelling in the evening with out much pain.It is kind of consistent but more swollen in the evening. Brufen helps relieve the pain. She is also taking the benadryl helps her. Has not used a knee brace still. Update 02/21/2024: Patient still has some pain but manageable, changing of shoes helped her. Patient has been having shoulder pain for the past few weeks, certain movements maker her feel likeshe has a stabbing pain at the point where the levator scapula is attached. She is on the zetia, for her lipids, ldl is almost at target. No problem-specific Assessment & Plan notes found for this encounter. PAST MEDICAL HISTORY Diagnosis Date Abnormal glandular Papanicolaou smear of cervix 04/23/2005 Abn. 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 Hypertension Internal hemorrhoids without mention of complication Irregular menstrual cycle perimenopausal bleeding Snoring PAST SURGICAL HISTORY Procedure Laterality Date BIOPSY BREAST OPEN INCISIONAL 11/28/2000 left breast COLONOSCOPY FLX DX W/COLLJ SPEC WHEN PFRMD 05/17/2006 COLONOSCOPY FLX DX W/COLLJ SPEC WHEN PFRMD 06/16/2017 Colonoscopy COLPOSCOPY CERVIX UPPER/ADJACENT VAGINA 07/15/2000 Colposcopy CONIZATION CERVIX W/WO D&C RPR ELTRD EXC 08/03/2000 LEEP-Cervix LIG/TRNSXJ FLP TUBE ABDL/VAG APPR UNI/BI 05/27/1992 Tubal ligation, BPS OTHER MOHS- removal of squamous cells PAST SURGICAL HISTORY OF 1981 Broken Nose Repair PAST SURGICAL HISTORY OF 09/17/2004 EMB PAST SURGICAL HISTORY OF 09/2004 BONE DENSITTY SKIN BX, 1 LESION 12/15/2000 basal cell CA, on face SKIN EXCISION 12/23/2021 excision skin cyst lower back TONSILLECTOMY PRIMARY/SECONDARY <AGE 12 Tonsillectomy FAMILY HISTORY Problem Relation Age of Onset Diabetes Father non-insulin Cancer Father Bladder and Basil Cell Cancer Paternal Grandmother Ovarian age 45 Lipids Mother Hyperlipidemia,stroke Heart Mother 65 [place] Hypertension Mother Arthritis Mother Cancer Mother Skin cancer - unsure of cell type other (heartburn) Son other (Other) Other No breast/uterine/colon cancer other (melanoma) Daughter Social History Tobacco Use Smoking status: Never Smokeless tobacco: Never Vaping Use Vaping status: Never Used Substance Use Topics Alcohol use: Yes Alcohol/week: 14.0 standard drinks of alcohol Types: 14 Glasses of Wine (5oz) per week Drug use: No Past medical history, appointments, medications, allergies reviewed. Pertinent Lab/Diagnostic Studies are reviewed and discussed today Current Outpatient Medications: meloxicam (MOBIC) 15 mg tablet methocarbamol (ROBAXIN) 500 mg tablet finasteride (PROPECIA) 1 mg tablet LORazepam (ATIVAN) 0.5 mg estradiol (ESTRACE) 0.01 % (0.1 mg/gram) vaginal cream tacrolimus (PROTOPIC) 0.1 % ointment triamcinolone acetonide (KENALOG) 0.1 % cream lisinopril (ZESTRIL) 5 mg tablet sertraline (ZOLOFT) 100 mg tablet ezetimibe (ZETIA) 10 mg tablet fluticasone (FLONASE) 50 mcg/actuation nasal spray minoxidil (LONITEN) 2.5 mg tablet EPINEPHrine (EPIPEN) 0.3 mg/0.3 mL auto-injector sodium chloride (SALINE NASAL) 0.65 % nasal spray Review of Systems CONSTITUTIONAL: No fevers, chills night sweats, unintended weight loss CARDIOVASCULAR: No chest pain, dyspnea, palpitations, orthopnea, PND, ankle edema. PULM: No dyspnea, unexplained cough. GI: No dysphagia/odynophagia, problematic reflux, constipation, diarrhea, changes in stool habits, hematochezia, melena. : No new urinary complaints, including dysuria, gross hematuria or pyuria. NEURO: No new balance problems, peripheral weakness/paresthesias or numbness of concern. Physical Exam BP 124/80 Pulse 70 Resp 16 Wt 60.8 kg (134 lb) LMP 12/12/2009 BMI 25.11 kg/m General appearance: Well appearing, alert, in no acute distress, well nourished. Skin: Skin color, texture, turgor normal, no suspicious rashes or lesions Head: Normocephalic, no masses, lesions, tenderness or abnormalities Eyes: Anicteric sclera. Pupils are equally round and reactive to light. Extraocular movements are intact. Lungs: Lungs clear to auscultation. No wheezing, rhonchi, rales Heart: RRR without murmur, gallop, or rubs. Extremities: No deformities, edema, skin discoloration, clubbing or cyanosis. Good capillary refill. ASSESSMENT/PLAN: 1. Medicare annual wellness visit, subsequent - ICD9: V70.0, ICD10: Z00.00 (primary diagnosis) - Counseled on healthy diet and regular exercise 2. Mixed hyperlipidemia - ICD9: 272.2, ICD10: E78.2 - Controlled - Counseled on healthy diet and regular exercise 3. Essential hypertension - ICD9: 401.9, ICD10: I10 - Controlled - Recommend home blood pressure monitoring, to bring results to next visit - Encouraged sodium restriction, DASH or Mediterranean diet - Recommend regular aerobic exercise 4. Mild episode of recurrent major depressive disorder (HCC) - ICD9: 296.31, ICD10: F33.0 The patient is doing well on zoloft, to continue 5. Anxiety - ICD9: 300.00, ICD10: F41.9 The patient is doing well on zoloft, to continue Micah High MD documented [facility]12[facility]24 NoteHNO ID: [id number] Author: DARRYL CARDENAS PT Service: ? Author Type: Physical Therapist Type: Progress Notes Filed: 02/17/2024 15:59 Note Text: Episode Visit Count: 6 Therapist That Will Accept/Oversee The Plan Of Care: Darryl Cardenas Start of Care Date: 12/19/23 Onset Date: 02/18/24 Plan of Care Certification Date: 02/18/24 Next Certification Due Date: 04/20/24 REHABILITATION AND SPORTS THERAPY PHYSICAL THERAPY PROGRESS REPORT PLAN OF CARE UPDATE: Assessment: Jaz Dukes demonstrates moderate improvement in rising from a chair, standing, walking, and stair negotiation. The patient has progressed toward goals. Patient continues to present with impairments in ADL's, overall function, strength, and symptom management that interfere with walking, stair negotiation, kneeling, squatting . Current prognosis is Excellent due to: current objective clinical presentation, good overall health status, positive past response to therapy, within-session changes, good support system/ coping skills . The patient will benefit from continued skilled therapy services to meet the updated goals for this plan of care as noted below. Goals updated on 02/17/2024. Goals for Episode of Care: established 11/10/23 Patient demonstrates independence and compliance with home exercise program. Patient to increase strength of pelvic floor to Power 5/5, Endurance 10/10, and Repetitions 10/10 in order to improve bladder/bowel control. Patient to correctly isolate pelvic floor muscles without compensatory patterns of breath holding, adductor use, gluteal use, and abdominal use to improve bladder/bowel control. Patient reports decreased frequency of urine/stool leakage to 0 times per day to demonstrate improved bladder/bowel control and increase confidence in community/social settings. Patient reports 100% less bladder/bowel leaks with external trigger to avoid incontinent episodes. Patient reports 100% improvement in bladder/bowel leaks while coughing/sneezing compared to evaluation in order to increase bladder and bowel function in activities of daily living. Patient can perform all activities of daily living, work, and recreational activities with 100 % bladder/bowel continence. Patient Goals: normal bladder function Knee and neck goals: Goals for Episode of Care: established 12/19/23 [place] in home exercise program. Met Patient will decrease pain rating by 2 points to meet minimal clinical important difference for numeric pain rating scale. Partially met Patient will increase active ROM of cervical spine and L knee to WNL to allow pt to to improve performance of ADLs. Progressing Patient will demonstrate increase in L knee strength to 4+/5 during manual muscle testing in order to improve function for basic self-care tasks, home management tasks, and prior functional tasks. Progressing Sleep throughout the night without pain/symptoms. Progressing Time Frame for Goals and Treatment : 05/02/24 Planned Interventions, Frequency, and Duration: 1x/week, 8 weeks Total Number of Visits Planned: 8 Patient to be seen for Therapeutic exercise (35241), Neuromuscular re-education (94239), Manual therapy (66594), Therapeutic activities (69932), Self-residential management (63167), Gait Training (49006), Patient/Family/Caregiver Education, Body Mechanics Training PLAN FOR NEXT VISIT: Continue quad strengthening per tolerance SUBJECTIVE: Patient doing better. Still has pain, but not as intense or frequent. Tolerating walking, standing ADLs, and stairs better. Stairs are still rough but she does not avoid them like she was. Functional Limitations: walking, stair negotiation, kneeling, squatting Pain: Pain Pain Level 2: 0 (1-3/10 on a typical day) Pain Location 2: Knee - Left Description 2: Aching, Sore Frequency 2: Continuous PROMIS Scales 02/07/2024 01/10/2024 12/12/2023 Higher is Better Phys Func - Score 45 (within normal limits) 45 (within normal limits) 52 (within normal limits) Phys Func - Percentile 31 31 58 Self-Eff Symptom - Score 42 (Average) 48 (Average) 48 (Average) Self-Eff Symptom - Percentile 21 42 42 T-scores: mean of general population = 50. 5 points is clinically meaningfully difference Percentiles provide an indication of how the patient's score ranks in relation to the general population. Higher percentile rankings indicate better function/quality of life. 50th percentile is the average of the general population and indicates half of respondents had a worse score. OBJECTIVE MEASURES WITH LEVEL OF FUNCTION: LE AROM L Knee Extension: 0 Degrees L Knee Flexion: 130 Degrees LE Strength R Knee Extension Functional Strength (L3): 55.5 L Knee Extension Functional Strength (L3): 38.2 TREATMENT: Therapeutic Exercise: 1: SL hip abduction x 15 LLE 2: Clamshells 3x10 LLE 3: *Step ups 6 2x10 4: *Mini Squats 2x10 at countertop for UE support and bowen (more content not included)...[facility]12-13-2024 History of Present illness Narrative* Darryl Cardenas, PT - 02/17/2024 3:56 PM EST Episode Visit Count: 6 Therapist That Will Accept/Oversee The Plan Of Care: Darryl Cardenas Start of Care Date: 12/19/23 Onset Date: 02/18/24 Plan of Care Certification Date: 02/18/24 Next Certification Due Date: 04/20/24 [facility]AB[facility] THERAPY PHYSICAL THERAPY PROGRESS REPORT PLAN OF CARE UPDATE: Assessment: Jaz Ledesma Ernst demonstrates moderate improvement in rising from a chair, standing, walking, and stair negotiation. The patient has progressed toward goals. Patient continues to present with impairments in ADL's, overall function, strength, and symptom management that interfere with walking, stair negotiation, kneeling, squatting . Current prognosis is Excellent due to: current objective clinical presentation, good overall health status, positive past response to therapy, within-session changes, good support system/ coping skills . The patient will benefit from continued skilled therapy services to meet the updated goals for this plan of care as noted below. Goals updated on 02/17/2024. Goals for Episode of Care: established 11/10/23 Patient demonstrates independence and compliance with home exercise program. Patient to increase strength of pelvic floor to Power 5/5, Endurance 10/10, and Repetitions 10/10 in order to improve bladder/bowel control. Patient to correctly isolate pelvic floor muscles without compensatory patterns of breath holding, adductor use, gluteal use, and abdominal use to improve bladder/bowel control. Patient reports decreased frequency of urine/stool leakage to 0 times per day to demonstrate improved bladder/bowel control and increase confidence in community/social settings. Patient reports 100% less bladder/bowel leaks with external trigger to avoid incontinent episodes. Patient reports 100% improvement in bladder/bowel leaks while coughing/sneezing compared to evaluation in order to increase bladder and bowel function in activities of daily living. Patient can perform all activities of daily living, work, and recreational activities with 100 % bladder/bowel continence. Patient Goals: normal bladder function Knee and neck goals: Goals for Episode of Care: established 12/19/23 [place] in home exercise program. Met Patient will decrease pain rating by 2 points to meet minimal clinical important difference for numeric pain rating scale. Partially met Patient will increase active ROM of cervical spine and L knee to WNL to allow pt to to improve performance of ADLs. Progressing Patient will demonstrate increase in L knee strength to 4+/5 during manual muscle testing in order to improve function for basic self-care tasks, home management tasks, and prior functional tasks. Progressing Sleep throughout the night without pain/symptoms. Progressing Time Frame for Goals and Treatment : 05/02/24 Planned Interventions, Frequency, and Duration: 1x/week, 8 weeks Total Number of Visits Planned: 8 Patient to be seen for Therapeutic exercise (82021), Neuromuscular re-education (19578), Manual therapy (68468), Therapeutic activities (08096), Self-residential management (39029), Gait Training (50389), Patient/Family/Caregiver Education, Body Mechanics Training PLAN FOR NEXT VISIT: Continue quad strengthening per tolerance SUBJECTIVE: Patient doing better. Still has pain, but not as intense or frequent. Tolerating walking, standing ADLs, and stairs better. Stairs are still rough but she does not avoid them like she was. Functional Limitations: walking, stair negotiation, kneeling, squatting Pain: Pain Pain Level 2: 0 (1-3/10 on a typical day) Pain Location 2: Knee - Left Description 2: Aching, Sore Frequency 2: Continuous PROMIS Scales 02/07/2024 01/10/2024 12/12/2023 Higher is Better Phys Func - Score 45 (within normal limits) 45 (within normal limits) 52 (within normal limits) Phys Func - Percentile 31 31 58 Self-Eff Symptom - Score 42 (Average) 48 (Average) 48 (Average) Self-Eff Symptom - Percentile 21 42 42 T-scores: mean of general population = 50. 5 points is clinically meaningfully difference Percentiles provide an indication of how the patient's score ranks in relation to the general population. Higher percentile rankings indicate better function/quality of life. 50th percentile is the average of the general population and indicates half of respondents had a worse score. OBJECTIVE MEASURES WITH LEVEL OF FUNCTION: LE AROM L Knee Extension: 0 Degrees L Knee Flexion: 130 Degrees LE Strength R Knee Extension Functional Strength (L3): 55.5 L Knee Extension Functional Strength (L3): 38.2 TREATMENT: Therapeutic Exercise: 1: SL hip abduction x 15 LLE 2: Clamshells 3x10 LLE 3: *Step ups 6 2x10 4: *Mini Squats 2x10 at countertop for UE support and chair behind patient 5: Objective measures obtained 6: Seated LAQ x10 Skilled Intervention: Patient was educated in proper exercise technique and purpose for exercises. Skilled judgment was used in selection of appropriate interventions. Provided written instruction for home exercise program to facilitate proper performance and compliance. Correct performance of therapeutic exercises was facilitated with verbal, visual, and tactile cuing. Billing Therapeutic Exercise Treatment Minutes: 40 Skilled Treatment Time Minutes (timed and untimed codes): 40 Total Session Time (minutes): 40 Session Start Time : 1300 Session Stop Time : 1340 Darryl Cardenas PT * Darryl Cardenas PT - 02/15/2024 1:40 PM EST Program_ID:[id number] Access Code: [email or web address] URL: [email or web address] Date: 02-15-2024 Prepared By: Darryl Cardenas Program Notes Exercises - Gentle Levator Scapulae Stretch - 1 x daily - 7 x weekly - 3 sets - 3 reps - Seated Upper Trapezius Stretch - 1 x daily - 7 x weekly - 3 sets - 3 reps - Seated Scapular Retraction - 1 x daily - 7 x weekly - 3 sets - 10 reps - Active Straight Leg Raise with Quad Set - 1-2 x daily - 7 x weekly - 2 sets - 5-10 reps - Sidelying Hip Abduction - 1-2 x daily - 7 x weekly - 2 sets - 10 reps - Shoulder extension with resistance - Neutral - 1 x daily - 7 x weekly - 2-3 sets - 10 reps - Shoulder External Rotation and Scapular Retraction with Resistance - 1 x daily - 7 x weekly - 2-3 sets - 10 reps - Clamshell - 2 x daily - 7 x weekly - 2 sets - 10 reps - Seated Long Arc Quad - 2 x daily - 7 x weekly - 2 sets - 10 reps - Step Up - 1 x daily - 7 x weekly - 2 sets - 10 reps - Mini Squat with Counter Support - 1 x daily - 7 x weekly - 2 sets - 10 reps * Darryl Cardenas, PT - 02/15/2024 1:40 PM EST Program_ID:[id number] Access Code: [email or web address] URL: [email or web address]/ Date: 02-15-2024 Prepared By: Darryl Cardenas Program Notes Exercises - Gentle Levator Scapulae Stretch - 1 x daily - 7 x weekly - 3 sets - 3 reps - Seated Upper Trapezius Stretch - 1 x daily - 7 x weekly - 3 sets - 3 reps - Seated Scapular Retraction - 1 x daily - 7 x weekly - 3 sets - 10 reps - Active Straight Leg Raise with Quad Set - 1-2 x daily - 7 x weekly - 2 sets - 5-10 reps - Sidelying Hip Abduction - 1-2 x daily - 7 x weekly - 2 sets - 10 reps - Shoulder extension with resistance - Neutral - 1 x daily - 7 x weekly - 2-3 sets - 10 reps - Shoulder External Rotation and Scapular Retraction with Resistance - 1 x daily - 7 x weekly - 2-3 sets - 10 reps - Clamshell - 2 x daily - 7 x weekly - 2 sets - 10 reps - Seated Long Arc Quad - 2 x daily - 7 x weekly - 2 sets - 10 reps - Step Up - 1 x daily - 7 x weekly - 2 sets - 10 reps [facility] History of Present illness Narrative* Parvin Gonzalez RT(R) - 02/07/2024 2:10 PM EST Radiology Service Progress Note PATIENT NAME: Jaz Dukes DATE OF SERVICE: February 07, 2024 TIME: 3:43 PM PATIENT IDENTITY VERIFICATION COMPLETED USING TWO (2) IDENTIFIERS: Name and Date of confirmedby patient verbally. FALL SCREENING: Has the patient had 2 falls in the last year or 1 fall with injury or currently using an Ambulatory Assistive Device (Walker, Cane, Wheelchair, Crutches, etc.)? No PATIENT GENDER DATA: Female. status: : No status: NO. PATIENT RELEVANT IMPLANT DATA REVIEWED: Not Applicable PATIENT PRESENTS WITH AN IMPLANTABLE OR ATTACHED GREEN HIDE INSPECTOR: No RADIOLOGY DEPARTMENT: General X-ray: Exam(s) Completed: Lower Extremity X- Ray(s): Foot, Right and Wt. Bearing PERIPHERAL IV DATA: Not applicable SIGNED BY: SAMMY Bueno) February 07, 2024 3:43 PM documented in this encounterMari[facility]12-03-2024 NoteHNO ID: [id number] Author: PARVIN GONZALEZ RT (R) Service: ? Author Type: Technologist Type: Progress Notes Filed: 02/07/2024 15:43 Note Text: Radiology Service Progress Note PATIENT NAME: Jaz Dukes DATE OF SERVICE: February 07, 2024 TIME: 3:43 PM PATIENT IDENTITY VERIFICATION COMPLETED USING TWO (2) IDENTIFIERS: Name and Date of confirmed by patient verbally. FALL SCREENING: Has the patient had 2 falls in the last year or 1 fall with injury or currently using an Ambulatory Assistive Device (Walker, Cane, Wheelchair, Crutches, etc.)? No PATIENT GENDER DATA: Female. status: : No status: NO. PATIENT RELEVANT IMPLANT DATA REVIEWED: Not Applicable PATIENT PRESENTS WITH AN IMPLANTABLE OR ATTACHED GREEN HIDE INSPECTOR: No RADIOLOGY DEPARTMENT: General X-ray: Exam(s) Completed: Lower Extremity X-Ray(s): Foot, Right and Wt. Bearing PERIPHERAL IV DATA: Not applicable SIGNED BY: RT Myles(Monica) February 07, 2024 3:43 [facility]12-03-2024 NoteHNO ID: [id number] Author: VICKY HANNAH LPN Service: ? Author Type: LICENSED NURSE Type: Progress Notes Filed: 02/07/2024 14:09 Note Text: Per Jaz Oseguera was provided with powerstep original inserts, size 7, and instructed/educated in its application, wear, and care. All questions were answered, and patient was able to demonstrate competence with the necessary skills to utilize the above equipment. [facility] [place] History of Present illness Narrative* Vicky Hannah LPN - 02/07/2024 2:09 PM EST Per Jaz Oseguera was provided with powerstep original inserts, size 7, and instructed/educated in its application, wear, and care. All questions were answered, and patient was able to demonstrate competence with the necessary skills to utilize the above equipment. Vicky Hannah LPN * Micheal Yeh - 02/07/2024 1:50 PM EST Initial Podiatric Office Visit: Chief Complaint: This 68 year old female who presents with chief complaint:bunion right foot HPI Patient presents to clinic for evaluation of right foot. She has bunion of the right foot that has been causing her pain for the past few months. She states there is pain to the medial eminence of the right great toe but also has pain with movement of the toe She likes to walk and has pain with walking She has noticed pain when sleeping that leads to waking her up. Patient has used lidocaine patch which does provide some relief. PAIN EVALUATION 02/07/2024 1342 Pain Level: 10 Pain Location: Toe Description: Stabbing Duration Amount of Time: 3 Duration Units: Months Frequency: Intermittent Intervention/Comfort measure: Relaxation;Reposition Hemoglobin A1C (%) Date Value 11/10/2022 5.3 02/16/2020 5.6 PCP: Micah High MD PAST MEDICAL HISTORY Diagnosis Date Abnormal glandular Papanicolaou smear of cervix 04/23/2005 Abn. 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 Can take halfto one pill a day as needed finasteride (PROPECIA) 1 mg tablet Take 1 tablet by mouth every afternoon. LORazepam (ATIVAN) 0.5 mg Take by mouth three times a day as needed. estradiol (ESTRACE) 0.01 % (0.1 mg/gram) vaginal cream Use 1g vaginally 2 times per week. EPINEPHrine (EPIPEN) 0.3 mg/0.3 mL auto-injector Inject 0.3 mL intramuscularly as directed. use as directed for allergic reaction. Seek emergent medical immediately after use. tacrolimus (PROTOPIC) 0.1 % ointment Apply to affected area two times a day. triamcinolone acetonide (KENALOG) 0.1 % cream Apply 1 application to affected area two times a day.Apply to affected area. Location: back lisinopril (ZESTRIL) 5 mg tablet Take 1 tablet by mouth once daily. sertraline (ZOLOFT) 100 mg tablet take 1 tablet daily ezetimibe (ZETIA) 10 mg tablet take 1 tablet daily sodium chloride (SALINE NASAL) 0.65 % nasal spray Use 2-3 Sprays in the nose three times a day. fluticasone (FLONASE) 50 mcg/actuation nasal spray Use 2 Sprays in each nostril once daily. Rinse mouth after use. minoxidil (LONITEN) 2.5 mg tablet take 1/4 OF a tablet EVERY DAY No current facility-administered medications for this visit. ALLERGIES Allergen Reactions Allergen Ext-Venom-* Mold Propolis (Bee Glue) PAST SURGICAL HISTORY Procedure Laterality Date BIOPSY BREAST OPEN INCISIONAL 11/28/2000 left breast COLONOSCOPY FLX DX W/COLLJ SPEC WHEN PFRMD 05/17/2006 COLONOSCOPY FLX DX W/COLLJ SPEC WHEN PFRMD 06/16/2017 Colonoscopy COLPOSCOPY CERVIX UPPER/ADJACENT VAGINA 07/15/2000 Colposcopy CONIZATION CERVIX W/WO D&C RPR ELTRD EXC 08/03/2000 LEEP-Cervix LIG/TRNSXJ FLP TUBE ABDL/VAG APPR UNI/BI 05/27/1992 Tubal ligation, BPS OTHER MOHS- removal of squamous cells PAST SURGICAL HISTORY OF 1981 Broken Nose Repair PAST SURGICAL HISTORY OF 09/17/2004 EMB PAST SURGICAL HISTORY OF 09/2004 BONE DENSITTY SKIN BX, 1 LESION 12/15/2000 basal cell CA, on face SKIN EXCISION 12/23/2021 excision skin cyst lower back TONSILLECTOMY PRIMARY/SECONDARY <AGE 12 Tonsillectomy FAMILY HISTORY Problem Relation Age of Onset Diabetes Father non-insulin Cancer Father Bladder and Basil Cell Cancer Paternal Grandmother Ovarian age 45 Lipids Mother Hyperlipidemia,stroke Heart Mother 65 [place] Hypertension Mother Arthritis Mother Cancer Mother Skin cancer - unsure of cell type other (heartburn) Son other (Other) Other No breast/uterine/colon cancer other (melanoma) Daughter Social History Tobacco Use Smoking status: Never Smokeless tobacco: Never Vaping Use Vaping status: Never Used Substance Use Topics Alcohol use: Yes Alcohol/week: 14.0 standard drinks of alcohol Types: 14 Glasses of Wine (5oz) per week Drug use: No REVIEW OF SYSTEMS GENERAL: Negative for Malaise, significant weight loss, fever RESPIRATORY: Negative for cough, wheezing and shortness of breath CARDIOVASCULAR: Negative for chest pain, leg swelling and palpitations GI: Negative for abdominal discomfort, blood in stools or black stools and change in bowel habits : Negative for dysuria, frequency and incontinence MUSCULOSKELETAL: Negative for joint pain or swelling, back pain, and muscle pain. SKIN: Negative for lesions, rash, and itching. HEMATOLOGY/LYMPHOLOGY Negative for prolonged bleeding, bruising easily, and swollen nodes. ENDOCRINE: Negative for cold or heat intolerance, polyuria, polydipsia and goiter. NEURO: negative Physical Exam: Constitutional: Pt is a well developed 68 year old female who is alert, oriented and cooperative Eyes: Following during examination. No redness or drainage. Respiratory: RR normal and nonlabored. Even breathing. No evidence of distress or shortness of breath. Psychology: Patient is engaged during conversation. Normal affect and mood. Does not appear depressed or anxious during encounter. Vascular: Dorsalis pedis and posterior tibial pulses palpable as b/l Capillary Fill time < 5 seconds to digits 1-5 b/l Skin temperature warm to warm proximal to distal b/l Hair growth present to digits Neurological: intact light touch/epicritic sensation b/l intact protective sensation no significant neurological deficits Dermatological: Nails 1-5 b/l appear normal. Webspaces clean and dry 1-4 b/l. Skin appears well hydrated and supple. good color, texture, turgor. No open lesions present. No callosities present. Musculoskeletal/Orthopaedic: Patient has pain to palpation of right 1st mtpj. Patient has arthritic bunion with decreased rom ofright 1st mtpj Foot type is neutral structurally AJ ROM is full with knee extended and flexed 1st MPJ is decreased when loaded and mild pain or crepitus are noted with ROM. MTJ, STJ are full and free of pain and crepitus. +5/5 muscle strength dorsiflexion, plantarflexion, inversion, eversion b/l Radiographs: new xrays ordered. Reviewed xrays from 2011. Patient has dorsal spurring of right 1st mtpj with subchondral cyst formation ASSESSMENT: (M20.11) Acquired hallux valgus of right foot (primary encounter diagnosis) (M20.21) Hallux rigidus of right foot PLAN: 1. History and physical examination performed. 2. Discussed arthritic bunion of right foot. Discussed progressive nature of this bunion. Discussedconservative options not limited to nsaids, inserts, custom inserts with krause extension, wider shoes. 3. Discussed surgical options. Given the arthritic nature, if she were to elect for surgery, it is possible a first mtpj fusion may be a beneficial procedure. Will check xrays of right foot. 4. Reviewed past blood work. Normal kidney function. Will prescribe mobic. 5. Powerstep inserts dispensed. If these help, could consider custom insert with krause extension. Micheal Yeh DPM Podiatry [address] [facility] [address] Dept: [phone] Dept * Vicky Hannah LPN - 02/07/2024 1:41 PM EST AMB ROOMING INTAKE FLOWSHEET DATA Pain Pain Level: 10 Pain Location: Toe Description: Stabbing Duration Amount of Time: 3 Duration Units: Months Frequency: Intermittent Intervention/Comfort measure: Relaxation, Reposition Patient presents with: Right Great Toe - New, Bunion, Pain Vicky Hannah LPN documented in this encounterM[facility]12-03-2024 Instructions* Patient Instructions* Micheal Yeh - 02/07/2024 2:04 PM EST Suspect you have an arthritic bunion of right foot Recommend firm sole shoes, ie hoka, alvarez, asics, new balance Recommend trying orthotic. We will do powerstep first. Custom is also an option Take mobic once daily as needed. Take with food. Powerstep Original Full length. Can purchase at [facility] [employer] and boots,shoes and more here in [place], [employer] in [place] or [place]. Also can find in [place] in [facility] [place]. Powersteps can also be purchased online, starting around $45.00 If you have a metatarsal or dancer pad for your feet apply the pad directly to the insole so you can interchange between your shoes. Find a shoe with a removable insole and take this out and replace with your powerstep insole. Always bring powersteps with you when shopping for shoes so that you can make sure that everything fits well together documented in this encounterMarietta [facility]12-03-2024 NoteHNO ID: [id number] Author: MICHEAL YEH, ? Service: ? Author Type: Physician Type: Progress Notes Filed: 02/07/2024 14:09 Note Text: Initial Podiatric Office Visit: Chief Complaint: This 68 year old female who presents with chief complaint:bunion right foot HPI Patient presents to clinic for evaluation of right foot. She has bunion of the right foot that has been causing her pain for the past few months. She states there is pain to the medial eminence of the right great toe but also has pain with movement of the toe She likes to walk and has pain with walking She has noticed pain when sleeping that leads to waking her up. Patient has used lidocaine patch which does provide some relief. PAIN EVALUATION 02/07/2024 1342 Pain Level: 10 Pain Location: Toe Description: Stabbing Duration Amount of Time: 3 Duration Units: Months Frequency: Intermittent Intervention/Comfort measure: Relaxation;Reposition Hemoglobin A1C (%) Date Value 11/10/2022 5.3 02/16/2020 5.6 PCP: Micah High MD PAST MEDICAL HISTORY Diagnosis Date Abnormal glandular Papanicolaou smear of cervix 04/23/2005 Abn. 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 Can take half to one pill a day as needed finasteride (PROPECIA) 1 mg tablet Take 1 tablet by mouth every afternoon. LORazepam (ATIVAN) 0.5 mg Take by mouth three times a day as needed. estradiol (ESTRACE) 0.01 % (0.1 mg/gram) vaginal cream Use 1g vaginally 2 times per week. EPINEPHrine (EPIPEN) 0.3 mg/0.3 mL auto-injector Inject 0.3 mL intramuscularly as directed. use as directed for allergic reaction. Seek emergent medical immediately after use. tacrolimus (PROTOPIC) 0.1 % ointment Apply to affected area two times a day. triamcinolone acetonide (KENALOG) 0.1 % cream Apply 1 application to affected area two times a day. Apply to affected area. Location: back lisinopril (ZESTRIL) 5 mg tablet Take 1 tablet by mouth once daily. sertraline (ZOLOFT) 100 mg tablet take 1 tablet daily ezetimibe (ZETIA) 10 mg tablet take 1 tablet daily sodium chloride (SALINE NASAL) 0.65 % nasal spray Use 2-3 Sprays in the nose three times a day. fluticasone (FLONASE) 50 mcg/actuation nasal spray Use 2 Sprays in each nostril once daily. Rinse mouth after use. minoxidil (LONITEN) 2.5 mg tablet take 1/4 OF a tablet EVERY DAY No current facility-administered medications for this visit. ALLERGIES Allergen Reactions Allergen Ext-Venom-* Mold Propolis (Bee Glue) PAST SURGICAL HISTORY Procedure Laterality Date BIOPSY BREAST OPEN INCISIONAL 11/28/2000 left breast COLONOSCOPY FLX DX W/COLLJ SPEC WHEN PFRMD 05/17/2006 COLONOSCOPY FLX DX W/COLLJ SPEC WHEN PFRMD 06/16/2017 Colonoscopy COLPOSCOPY CERVIX UPPER/ADJACENT VAGINA 07/15/2000 Colposcopy CONIZATION CERVIX W/WO DANDC RPR ELTRD EXC 08/03/2000 LEEP-Cervix LIG/TRNSXJ FLP TUBE ABDL/VAG APPR UNI/BI 05/27/1992 Tubal ligation, BPS OTHER MOHS- removal of squamous cells PAST SURGICAL HISTORY OF 1981 Broken Nose Repair PAST SURGICAL HISTORY OF 09/17/2004 EMB PAST SURGICAL HISTORY OF 09/2004 BONE DENSITTY SKIN BX, 1 LESION 12/15/2000 basal cell CA, on face SKIN EXCISION 12/23/2021 excision skin cyst lower back TONSILLECTOMY PRIMARY/SECONDARY Tonsillectomy FAMILY HISTORY Problem Relation Age of Onset Diabetes Father non-insulin Cancer Father Bladder and Basil Cell Cancer Paternal Grandmother Ovarian age 45 Lipids Mother Hyperlipidemia,stroke Heart Mother 65 [place] Hypertension Mother Arthritis Mother Cancer Mother Skin cancer - unsure of cell type other (heartburn) Son other (Other) Other No breast/uterine/colon cancer other (melanoma) Daughter Social History Tobacco Use Smoking status: Never Smokeless tobacco: Never Vaping Use Vaping status: Never Used Substance Use Topics Alcohol use: Yes Alcohol/week: 14.0 standard drinks of alcohol Types: 14 Glasses of Wine (5oz) per week Drug use: No REVIEW OF SYSTEMS GENERAL: Negative for Malaise, significant weight loss, fever RESPIRATORY: Negative for cough, wheezing and shortness of breath CARDIOVASCULAR: Negative for chest pain, leg swelling and palpitations GI: Negative for abdominal discomfort, blood in stools or black stools and change in bowel habits : Negative for dysuria, frequency and incontinence MUSCULOSKELETAL: Negative for joint pain or swelling, back pain, and muscle pain. SKIN: Negative for lesions, rash, and itching. HEMATOLOGY/LYMPHOLOGY Negative for prolonged bleeding, bruising easily, and swollen nodes. ENDOCRINE: Negative for cold or heat in (more content not included)...[facility]12-03-2024 NoteHNO ID: [id number] Author: VICKY HANNAH LPN Service: ? Author Type: LICENSED NURSE Type: Progress Notes Filed: 02/07/2024 14:09 Note Text: AMB ROOMING INTAKE FLOWSHEET DATA Pain Pain Level: 10 Pain Location: Toe Description: Stabbing Duration Amount of Time: 3 Duration Units: Months Frequency: Intermittent Intervention/Comfort measure: Relaxation, Reposition Patient presents with: Right Great Toe - New, Bunion, Pain [facility] History of Present illness Narrative* Gemma Olmedo PTA - 02/07/2024 11:37 AM EST Program_ID:[id number] Access Code: [email or web address] URL: [email or web address] Date: 02-07-2024 Prepared By: Darryl Cardenas Program Notes Exercises - Gentle Levator Scapulae Stretch - 1 x daily - 7 x weekly - 3 sets - 3 reps - Seated Upper Trapezius Stretch - 1 x daily - 7 x weekly - 3 sets - 3 reps - Seated Scapular Retraction - 1 x daily - 7 x weekly - 3 sets - 10 reps - Active Straight Leg Raise with Quad Set - 1-2 x daily - 7 x weekly - 2 sets - 5-10 reps - Supine Quad Set on Towel Roll - 1-2 x daily - 7 x weekly - 2 sets - 5-10 reps - Supine Heel Slide with Strap - 1-2 x daily - 7 x weekly - 2 sets - 5-10 reps - Sidelying Hip Abduction - 1-2 x daily - 7 x weekly - 2 sets - 10 reps - Modified Dg Stretch - 1-2 x daily - 7 x weekly - 2 sets - 2 reps - Shoulder extension with resistance - Neutral - 1 x daily - 7 x weekly - 2-3 sets - 10 reps - Shoulder External Rotation and Scapular Retraction with Resistance - 1 x daily - 7 x weekly - 2-3 sets - 10 reps - Clamshell - 2 x daily - 7 x weekly - 2 sets - 10 reps - Seated Long Arc Quad - 2 x daily - 7 x weekly - 2 sets - 10 reps * Darryl Cardenas PT - 02/07/2024 10:57 AM EST Episode Visit Count: 5 Therapist That Will Accept/Oversee The Plan Of Care: Darryl Ronald Start of Care Date: 12/19/23 Onset Date: 02/18/24 Plan of Care Certification Date: 01/31/24 Next Certification Due Date: 03/01/24 Patient Identified by Name and Date of : Yes REHABILITATION AND SPORTS THERAPY PHYSICAL THERAPY TREATMENT NOTE ASSESSMENT: Jaz Dukes tolerated the session with fatigue and expected muscle soreness. She demonstrated improvements in tolerance to standing exercises. The patient will continue to benefit from ongoing skilled physical therapy to progress toward set goals. PLAN FOR NEXT VISIT: Conitjewel with L knee strengthening as tolerated. SUBJECTIVE: Pt states that she has a bunion on her R foot and that she thinks this may be affectingher knee, due to her mechanics being off. Pt states that her knee does not hurt all of the time, but hurts more with walking and going up and down stairs. Pt reports that her neck is geting better. Has not had the stabbing pains, but maybe one time recenlty. Pain: Pain Pain Level: 0 Pain Location: Neck - Left, Neck - Right, Shoulder - Left, Shoulder - Right Pain Level 2: 4 (when walking on it) Pain Location 2: Knee - Left Post Treatment Pain Post Treatment Pain Location: Knee - Left Post Treatment Symptoms: Fatigue OBJECTIVE MEASURES WITH LEVEL OF FUNCTION: Small fluid filled pocket lateral and inferior to L patella. TREATMENT: Therapeutic Exercise: 1: SL hip abduction x 15 LLE 2: *Clamshells 3x10 LLE 3: Seated scifit stepper x 5 minutes, seat # 9. (1:1 throughout.) 4: Step up 6 2x10 5: Standing hip abduction x10 B (fatiguing in the B glutes) 6: Standing hip extension x 10 B (fatiguing in the B glutes) 7: *LAQ 2x10 LLE Skilled Intervention: Patient was educated in proper exercise technique and purpose for exercises. Reviewed and educated patient on additions/changes for home exercise program as above (*). Skilled judgment was used in selection of appropriate interventions. Provided written instruction for home exercise program to facilitate proper performance and compliance. Correct performance of therapeutic exercises was facilitated with verbal and visual cuing. Billing Therapeutic Exercise Treatment Minutes: 44 Skilled Treatment Time Minutes (timed and untimed codes): 44 Total Session Time (minutes): 44 Session Start Time : 1055 Session Stop Time : 113 Gemma Olmedo, [employer] Darryl Cardenas PT [facility] NoteHNO ID: [id number] Author: DARRYL CARDENAS PT Service: ? Author Type: Physical Therapist Type: Progress Notes Filed: 02/08/2024 07:44 Note Text: Episode Visit Count: 5 Therapist That Will Accept/Oversee The Plan Of Care: Darryl Cardenas Start of Care Date: 12/19/23 Onset Date: 02/18/24 Plan of Care Certification Date: 01/31/24 Next Certification Due Date: 03/01/24 Patient Identified by Name and Date of : Yes REHABILITATION AND SPORTS THERAPY PHYSICAL THERAPY TREATMENT NOTE ASSESSMENT: Jaz Dukes tolerated the session with fatigue and expected muscle soreness. She demonstrated improvements in tolerance to standing exercises. The patient will continue to benefit from ongoing skilled physical therapy to progress toward set goals. PLAN FOR NEXT VISIT: Conitnue with L knee strengthening as tolerated. SUBJECTIVE: Pt states that she has a bunion on her R foot and that she thinks this may be affecting her knee, due to her mechanics being off. Pt states that her knee does not hurt all of the time, but hurts more with walking and going up and down stairs. Pt reports that her neck is geting better. Has not had the stabbing pains, but maybe one time recenlty. Pain: Pain Pain Level: 0 Pain Location: Neck - Left, Neck - Right, Shoulder - Left, Shoulder - Right Pain Level 2: 4 (when walking on it) Pain Location 2: Knee - Left Post Treatment Pain Post Treatment Pain Location: Knee - Left Post Treatment Symptoms: Fatigue OBJECTIVE MEASURES WITH LEVEL OF FUNCTION: Small fluid filled pocket lateral and inferior to L patella. TREATMENT: Therapeutic Exercise: 1: SL hip abduction x 15 LLE 2: *Clamshells 3x10 LLE 3: Seated scifit stepper x 5 minutes, seat # 9. (1:1 throughout.) 4: Step up 6 2x10 5: Standing hip abduction x10 B (fatiguing in the B glutes) 6: Standing hip extension x 10 B (fatiguing in the B glutes) 7: *LAQ 2x10 LLE Skilled Intervention: Patient was educated in proper exercise technique and purpose for exercises. Reviewed and educated patient on additions/changes for home exercise program as above (*). Skilled judgment was used in selection of appropriate interventions. Provided written instruction for home exercise program to facilitate proper performance and compliance. Correct performance of therapeutic exercises was facilitated with verbal and visual cuing. Billing Therapeutic Exercise Treatment Minutes: 44 Skilled Treatment Time Minutes (timed and untimed codes): 44 Total Session Time (minutes): 44 Session Start Time : 1055 Session Stop Time : 1139 Gemma Olmedo, [employer] Darrylbrayan Cardenas, [facility]11-26-2024 NoteHNO ID: [id number] Author: LIZA PATRICIO PT Service: ? Author Type: Physical Therapist Type: Progress Notes Filed: 01/31/2024 12:53 Note Text: Episode Visit Count: 4 Therapist That Will Accept/Oversee The Plan Of Care: Alonso Patricio Start of Care Date: 12/19/23 Onset Date: 02/18/24 Plan of Care Certification Date: 01/31/24 Next Certification Due Date: 03/01/24 Patient Identified by Name and Date of : Yes REHABILITATION AND SPORTS THERAPY PHYSICAL THERAPY PROGRESS REPORT PLAN OF CARE UPDATE: Assessment: Jaz Dukes demonstrates moderate improvement in compromised bladder function. The patient has progressed toward goals. Patient continues to present with impairments in independence in exercise, overall function, strength, and symptom management that interfere with walking, stair negotiation, kneeling, squatting . Current prognosis is Excellent due to: current objective clinical presentation, good overall health status . The patient will benefit from continued skilled therapy services to meet the updated goals for this plan of care as noted below. Goals for Episode of Care: established 11/10/23 Patient demonstrates independence and compliance with home exercise program. Patient to increase strength of pelvic floor to Power 5/5, Endurance 10/10, and Repetitions 10/10 in order to improve bladder/bowel control. Patient to correctly isolate pelvic floor muscles without compensatory patterns of breath holding, adductor use, gluteal use, and abdominal use to improve bladder/bowel control. Patient reports decreased frequency of urine/stool leakage to 0 times per day to demonstrate improved bladder/bowel control and increase confidence in community/social settings. Patient reports 100% less bladder/bowel leaks with external trigger to avoid incontinent episodes. Patient reports 100% improvement in bladder/bowel leaks while coughing/sneezing compared to evaluation in order to increase bladder and bowel function in activities of daily living. Patient can perform all activities of daily living, work, and recreational activities with 100 % bladder/bowel continence. Patient Goals: normal bladder function Knee and neck goals: Goals for Episode of Care: established 12/19/23 [place] in home exercise program. Patient will decrease pain rating by 2 points to meet minimal clinical important difference for numeric pain rating scale. Patient will increase active ROM of cervical spine and L knee to WNL to allow pt to to improve performance of ADLs. Patient will demonstrate increase in L knee strength to 4+/5 during manual muscle testing in order to improve function for basic self-care tasks, home management tasks, and prior functional tasks. Sleep throughout the night without pain/symptoms. Time Frame for Goals and Treatment : 05/02/24 Patient Goals: normal bladder function Planned Interventions, Frequency, and Duration: 1x/week, 12 weeks Total Number of Visits Planned: 12 Patient to be seen for Therapeutic exercise (11014), Neuromuscular re-education (76182), Manual therapy (63705), Therapeutic activities (11391), Self-residential management (26348), Biofeedback Pelvic ([id number]) PLAN FOR NEXT VISIT: POC updated today; continue to progress PFMT and core stability towards improved management of urinary incontinence symtpoms SUBJECTIVE: Pt notes missing previous session d/t of a close friend and having to handle arrangements. Pt also has started PT for knee and shoulder pain. Pt notes bladder symtpoms have improved some, noting improvements with PT interventions that have mantained even with other things going on in her life.. Patient Goals: normal bladder function Functional Limitations: walking, stair negotiation, kneeling, squatting Pain: Pain Pain Level: 0 Pain Location: Low Back/Lumbar Spine- Midline PROMIS Scales 01/10/2024 12/12/2023 11/08/2023 Higher is Better Phys Func - Score 45 (within normal limits) 52 (within normal limits) 54 (within normal limits) Phys Func - Percentile 31 58 66 Self-Eff Symptom - Score 48 (Average) 48 (Average) 42 (Average) Self-Eff Symptom - Percentile 42 42 21 T-scores: mean of general population = 50. 5 points is clinically meaningfully difference Percentiles provide an indication of how the patient's score ranks in relation to the general population. Higher percentile rankings indicate better function/quality of life. 50th percentile is the average of the general population and indicates half of respondents had a worse score. OBJECTIVE MEASURES WITH LEVEL OF FUNCTION: Pelvic Floor Muscle Assessment Pelvic Floor Muscle Assessment: PERFECT (testing deferred today) TREATMENT: Therapeutic Exercise: 1: GS in hooklying 20 x 5 sec 2: hooklying hip add 20 x 10 sec 5: hooklying hip abd blue t-band 20 x 5 sec 6: hooklying l-stab marches 20 x B alternating with cues for TA activation Skilled Int (more content not included)...[facility]11-26-2024 History of Present illness Narrative* Liza Patricio, PT - 01/31/2024 12:52 PM EST Episode Visit Count: 4 Therapist That Will Accept/Oversee The Plan Of Care: Alonso Patricio Start of Care Date: 12/19/23 Onset Date: 02/18/24 Plan of Care Certification Date: 01/31/24 Next Certification Due Date: 03/01/24 Patient Identified by Name and Date of : Yes REHABILITATION AND SPORTS THERAPY PHYSICAL THERAPY PROGRESS REPORT PLAN OF CARE UPDATE: Assessment: Jaz Dukes demonstrates moderate improvement in compromised bladder function. The patient has progressed toward goals. Patient continues to present with impairments in independence in exercise, overall function, strength, and symptom management that interfere with walking, stair negotiation,kneeling, squatting . Current prognosis is Excellent due to: current objective clinical presentation, good overall health status . The patient will benefit from continued skilled therapy services to meet the updated goals for this plan of care as noted below. Goals for Episode of Care: established 11/10/23 Patient demonstrates independence and compliance with home exercise program. Patient to increase strength of pelvic floor to Power 5/5, Endurance 10/10, and Repetitions 10/10 in order to improve bladder/bowel control. Patient to correctly isolate pelvic floor muscles without compensatory patterns of breath holding, adductor use, gluteal use, and abdominal use to improve bladder/bowel control. Patient reports decreased frequency of urine/stool leakage to 0 times per day to demonstrate improved bladder/bowel control and increase confidence in community/social settings. Patient reports 100% less bladder/bowel leaks with external trigger to avoid incontinent episodes. Patient reports 100% improvement in bladder/bowel leaks while coughing/sneezing compared to evaluation in order to increase bladder and bowel function in activities of daily living. Patient can perform all activities of daily living, work, and recreational activities with 100 % bladder/bowel continence. Patient Goals: normal bladder function Knee and neck goals: Goals for Episode of Care: established 12/19/23 [place] in home exercise program. Patient will decrease pain rating by 2 points to meet minimal clinical important difference for numeric pain rating scale. Patient will increase active ROM of cervical spine and L knee to WNL to allow pt to to improve performance of ADLs. Patient will demonstrate increase in L knee strength to 4+/5 during manual muscle testing in order to improve function for basic self-care tasks, home management tasks, and prior functional tasks. Sleep throughout the night without pain/symptoms. Time Frame for Goals and Treatment : 05/02/24 Patient Goals: normal bladder function Planned Interventions, Frequency, and Duration: 1x/week, 12 weeks Total Number of Visits Planned: 12 Patient to be seen for Therapeutic exercise (07481), Neuromuscular re-education (13168), Manual therapy (86420), Therapeutic activities (78568), Self-residential management (29633), Biofeedback Pelvic ([id number]) PLAN FOR NEXT VISIT: POC updated today; continue to progress PFMT and core stability towards improved management of urinary incontinence symtpoms SUBJECTIVE: Pt notes missing previous session d/t of a close friend and having to handle arrangements. Pt also has started PT for knee and shoulder pain. Pt notes bladder symtpoms have improvedsome, noting improvements with PT interventions that have mantained even with other things going onin her life.. Patient Goals: normal bladder function Functional Limitations: walking, stair negotiation, kneeling, squatting Pain: Pain Pain Level: 0 Pain Location: Low Back/Lumbar Spine- Midline PROMIS Scales 01/10/2024 12/12/2023 11/08/2023 Higher is Better Phys Func - Score 45 (within normal limits) 52 (within normal limits) 54 (within normal limits) Phys Func - Percentile 31 58 66 Self-Eff Symptom - Score 48 (Average) 48 (Average) 42 (Average) Self-Eff Symptom - Percentile 42 42 21 T-scores: mean of general population = 50. 5 points is clinically meaningfully difference Percentiles provide an indication of how the patient's score ranks in relation to the general population. Higher percentile rankings indicate better function/quality of life. 50th percentile is the average of the general population and indicates half of respondents had a worse score. OBJECTIVE MEASURES WITH LEVEL OF FUNCTION: Pelvic Floor Muscle Assessment Pelvic Floor Muscle Assessment: PERFECT (testing deferred today) TREATMENT: Therapeutic Exercise: 1: GS in hooklying 20 x 5 sec 2: hooklying hip add 20 x 10 sec 5: hooklying hip abd blue t-band 20 x 5 sec 6: hooklying l-stab marches 20 x B alternating with cues for TA activation Skilled Intervention: Patient was educated in proper exercise technique and purpose for exercises. Skilled judgment was used in selection of appropriate interventions. Modalities: Biofeedback/Pelvic Health Biofeedback/Incontinence: Promethius biofeedback PFMT for urinary incontinence program J for 5 sec on, 10 sec off in supine with instruction throughout on proper contract/relax; additional time for proper set up and education Skilled Intervention: Proper administration and selection of modality based on clinical presentation, deficits, and needs. Patient response monitored throughout treatment. Billing Therapeutic Exercise Treatment Minutes: 15 Biofeedback Pelvic Health Initial 15 min Treatment Minutes: 15 Biofeedback Pelvic Health Ea Addtl 15 min Treatment Minutes: 11 Skilled Treatment Time Minutes (timed and untimed codes): 41 Total Session Time (minutes): 41 Session Start Time : 1036 Session Stop Time : 1117 Liza Patricio PT [facility]11[facility] History of Present illness Narrative* Leonard Parmar PT, DPT - 01/26/2024 5:47 PM EST Program_ID:[id number] Access Code: [email or web address] URL: [email or web address] Date: 01-26-2024 Prepared By: Darryl Cardenas Program Notes Exercises - Gentle Levator Scapulae Stretch - 1 x daily - 7 x weekly - 3 sets - 3 reps - Seated Upper Trapezius Stretch - 1 x daily - 7 x weekly - 3 sets - 3 reps - Seated Scapular Retraction - 1 x daily - 7 x weekly - 3 sets - 10 reps - Active Straight Leg Raise with Quad Set - 1-2 x daily - 7 x weekly - 2 sets - 5-10 reps - Supine Quad Set on Towel Roll - 1-2 x daily - 7 x weekly - 2 sets - 5-10 reps - Supine Heel Slide with Strap - 1-2 x daily - 7 x weekly - 2 sets - 5-10 reps - Sidelying Hip Abduction - 1-2 x daily - 7 x weekly - 2 sets - 10 reps - Modified Dg Stretch - 1-2 x daily - 7 x weekly - 2 sets - 2 reps - Shoulder extension with resistance - Neutral - 1 x daily - 7 x weekly - 2-3 sets - 10 reps - Shoulder External Rotation and Scapular Retraction with Resistance - 1 x daily - 7 x weekly - 2-3 sets - 10 reps * Leonard Parmar PT, DPT - 01/26/2024 5:28 PM EST Episode Visit Count: 4 Therapist That Will Accept/Oversee The Plan Of Care: Darryl Cardenas Start of Care Date: 12/19/23 Onset Date: 02/18/24 Plan of Care Certification Date: 12/19/23 Next Certification Due Date: 02/18/24 Patient Identified by Name and Date of : Yes REHABILITATION AND SPORTS THERAPY PHYSICAL THERAPY TREATMENT NOTE ASSESSMENT: Jaz Dukes tolerated the session with decreased symptoms. She demonstrated mild discomfort in the left knee with 6 step ups this date, though tolerable. Tolerate standing TKE without issues. Improvement in neck pain following stretches and manual therapy techniques. The patient will continue to benefit from ongoing skilled physical therapy to progress toward set goals. PLAN FOR NEXT VISIT: Progress shoulder/neck and knee rehab. SUBJECTIVE: Patient notes her knee is feeling a little better. Hoping to focus today's session on her shoulders. HEP going well. Pain: Pain Pain Level: 2 Pain Location: Neck - Left, Neck - Right, Shoulder - Left, Shoulder - Right Pain Level 2: 3 Pain Location 2: Knee - Left Post Treatment Pain Post Treatment Pain Level: Better OBJECTIVE MEASURES WITH LEVEL OF FUNCTION: Ongoing limitation with lateral cervical flexion bilat TREATMENT: Therapeutic Exercise: 1: Nustep warm-up resistance level 2 x5 minutes, 1:1 subjective collected 2: UT stretch 3x30 3: levator stretch 3x30 4: Step up 6 2x10 5: Standing TKE verse BTB 2x15 6: bilateral shoulder ER and retraction verse GTB 2x10 7: Shoulder extension verse GTB 2x10 Skilled Intervention: Patient was educated in proper exercise technique and purpose for exercises. Reviewed and educated patient on additions/changes for home exercise program as above (*). Skilled judgment was used in selection of appropriate interventions. Provided written instruction for home exercise program to facilitate proper performance and compliance. Correct performance of therapeutic exercises was facilitated with verbal and visual cuing. Manual Therapy: 1: Manual cervical traction x5 min 2: STM to B cervical paraspinals, upper traps, and levators with push to tolerance Skilled Intervention: Manual skills to improve joint mobility, ROM, and decrease pain. Utilized anatomy knowledge of the therapist, and assessment of patient's response to intervention. Billing Therapeutic Exercise Treatment Minutes: 36 Manual TherapyTreatment Minutes: 10 Skilled Treatment Time Minutes (timed and untimed codes): 46 Total Session Time (minutes): 46 Session Start Time : 1717 Session Stop Time : 1803 Leonard Parmar PT, DPT documented in this encounterM[facility]11-21-2024 NoteHNO ID: [id number] Author: LEONARD PARMAR PT, DPT Service: ? Author Type: Physical Therapist Type: Progress Notes Filed: 01/26/2024 18:04 Note Text: Episode Visit Count: 4 Therapist That Will Accept/Oversee The Plan Of Care: Darryl Cardenas Start of Care Date: 12/19/23 Onset Date: 02/18/24 Plan of Care Certification Date: 12/19/23 Next Certification Due Date: 02/18/24 Patient Identified by Name and Date of : Yes REHABILITATION AND SPORTS THERAPY PHYSICAL THERAPY TREATMENT NOTE ASSESSMENT: Jaz Dukes tolerated the session with decreased symptoms. She demonstrated mild discomfort in the left knee with 6 step ups this date, though tolerable. Tolerate standing TKE without issues. Improvement in neck pain following stretches and manual therapy techniques. The patient will continue to benefit from ongoing skilled physical therapy to progress toward set goals. PLAN FOR NEXT VISIT: Progress shoulder/neck and knee rehab. SUBJECTIVE: Patient notes her knee is feeling a little better. Hoping to focus today's session on her shoulders. HEP going well. Pain: Pain Pain Level: 2 Pain Location: Neck - Left, Neck - Right, Shoulder - Left, Shoulder - Right Pain Level 2: 3 Pain Location 2: Knee - Left Post Treatment Pain Post Treatment Pain Level: Better OBJECTIVE MEASURES WITH LEVEL OF FUNCTION: Ongoing limitation with lateral cervical flexion bilat TREATMENT: Therapeutic Exercise: 1: Nustep warm-up resistance level 2 x5 minutes, 1:1 subjective collected 2: UT stretch 3x30 3: levator stretch 3x30 4: Step up 6 2x10 5: Standing TKE verse BTB 2x15 6: bilateral shoulder ER and retraction verse GTB 2x10 7: Shoulder extension verse GTB 2x10 Skilled Intervention: Patient was educated in proper exercise technique and purpose for exercises. Reviewed and educated patient on additions/changes for home exercise program as above (*). Skilled judgment was used in selection of appropriate interventions. Provided written instruction for home exercise program to facilitate proper performance and compliance. Correct performance of therapeutic exercises was facilitated with verbal and visual cuing. Manual Therapy: 1: Manual cervical traction x5 min 2: STM to B cervical paraspinals, upper traps, and levators with push to tolerance Skilled Intervention: Manual skills to improve joint mobility, ROM, and decrease pain. Utilized anatomy knowledge of the therapist, and assessment of patient's response to intervention. Billing Therapeutic Exercise Treatment Minutes: 36 Manual TherapyTreatment Minutes: 10 Skilled Treatment Time Minutes (timed and untimed codes): 46 Total Session Time (minutes): 46 Session Start Time : 1717 Session Stop Time : 180 Leonard Parmar PT, [facility] [place]24 NoteHNO ID: [id number] Author: LEONARD PARMAR PT, DPT Service: ? Author Type: Physical Therapist Type: Progress Notes Filed: 01/17/2024 14:44 Note Text: Episode Visit Count: 3 Therapist That Will Accept/Oversee The Plan Of Care: Darryl Cardenas Start of Care Date: 12/19/23 Onset Date: 02/18/24 Plan of Care Certification Date: 12/19/23 Next Certification Due Date: 02/18/24 Patient Identified by Name and Date of : Yes REHABILITATION AND SPORTS THERAPY PHYSICAL THERAPY PROGRESS REPORT PLAN OF CARE UPDATE: Assessment: Jaz Dukes demonstrates some improvements in shoulder pain levels. Evaluation completed of L knee. Of note patient lacking left knee flexion ROM, and left quad is ~20# weaker than right. The patient has progressed toward goals as outlined below. Patient continues to present with impairments in ADL's, flexibility, gait, independence in exercise, overall function, range of motion, strength, and symptom management that interfere with walking, stair negotiation, kneeling, squatting . Current prognosis is Good due to: current objective clinical presentation, good overall health status, positive past response to therapy, good support system/ coping skills . The patient will benefit from continued skilled therapy services to meet the updated goals for this plan of care as noted below. Knee and neck goals: Goals for Episode of Care: established 12/19/23 [place] in home exercise program.--progressing Patient will decrease pain rating by 2 points to meet minimal clinical important difference for numeric pain rating scale.-progressing Patient will increase active ROM of cervical spine and L knee to WNL to allow pt to to improve performance of ADLs.-progressing Patient will demonstrate increase in L knee strength to 4+/5 during manual muscle testing in order to improve function for basic self-care tasks, home management tasks, and prior functional tasks.-progressing Sleep throughout the night without pain/symptoms.-progressing Time Frame for Goals and Treatment : 02/19/24 Planned Interventions, Frequency, and Duration: 1x/week, 4 weeks Total Number of Visits Planned: 4 Patient to be seen for Therapeutic exercise (96740), Neuromuscular re-education (13827), Manual therapy (47020), Therapeutic activities (39231), Self-residential management (76302), Patient/Family/Caregiver Education, Body Mechanics Training PLAN FOR NEXT VISIT: Progress shoulder/neck and knee rehab. SUBJECTIVE: Patient notes knee hurts more than her shoulder. Onset spring 2023, when she rolled her ankle while walking and had a fall. Bothers her when she walks. Takes ibuprofen for the pain. Shoulder pain frquency lessening. Functional Limitations: walking, stair negotiation, kneeling, squatting Previous Treatment: NSAIDs Pain: Pain Pain Level: 1 Pain Location: Neck - Left, Neck - Right, Shoulder - Left, Shoulder - Right Pain Level 2: 2 Pain Location 2: Knee - Left Post Treatment Pain Post Treatment Pain Level: No Change PROMIS Scales 01/10/2024 12/12/2023 11/08/2023 Higher is Better Phys Func - Score 45 (within normal limits) 52 (within normal limits) 54 (within normal limits) Phys Func - Percentile 31 58 66 Self-Eff Symptom - Score 48 (Average) 48 (Average) 42 (Average) Self-Eff Symptom - Percentile 42 42 21 T-scores: mean of general population = 50. 5 points is clinically meaningfully difference Percentiles provide an indication of how the patient's score ranks in relation to the general population. Higher percentile rankings indicate better function/quality of life. 50th percentile is the average of the general population and indicates half of respondents had a worse score. OBJECTIVE MEASURES WITH LEVEL OF FUNCTION: Knee Observations L Knee Palpation Tenderness: Patellar tendon (laterally) Spine Observations R Cervical Spine Palpation Tenderness: Upper trapezius, Levator scapulae, Paraspinals L Cervical Spine Palpation Tenderness: Upper trapezius, Levator scapulae, Paraspinals R Thoracic Spine Palpation Tenderness: Trapezius, Rhomboid L Thoracic Spine Palpation Tenderness: Trapezius, Levator Scapulae LE AROM L LE AROM: decreased hip extension ROM R Knee Extension: 0 Degrees R Knee Flexion: 132 Degrees L Knee Extension: -1 Degrees L Knee Flexion: 115 Degrees LE Flexibility Flexibility: Hamstring Flexibility, Hip Flexor Flexibility, Hip External Rotation Flexibility R Hamstring Flexibility: WNL L Hamstring Flexibility: moderate limitation R Hip Flexor Flexibility: minimal limitation L Hip Flexor Flexibility: moderate limitation R Hip External Rotation Flexibility: moderate limitation L Hip External Rotation Flexibility: mild limitation LE Strength R Hip Extension: 4/5 R Hip ABduction: 4-/5 R Knee Extension Functional Strength (L3): 58.2 L Hip Extension: 3+/5 L Hip Flexion (L2): 4/5 L Hip ABduction: 4-/5 L Knee Extension Functio (more content not included)...[facility]11-12-2024 History of Present illness Narrative* Leonard Parmar PT, ANILT - 01/17/2024 12:50 PM EST Episode Visit Count: 3 Therapist That Will Accept/Oversee The Plan Of Care: Darryl Cardenas Start of Care Date: 12/19/23 Onset Date: 02/18/24 Plan of Care Certification Date: 12/19/23 Next Certification Due Date: 02/18/24 Patient Identified by Name and Date of : Yes REHABILITATION AND SPORTS THERAPY PHYSICAL THERAPY PROGRESS REPORT PLAN OF CARE UPDATE: Assessment: Jaz Dukes demonstrates some improvements in shoulder pain levels. Evaluation completed of Lknee. Of note patient lacking left knee flexion ROM, and left quad is ~20# weaker than right. The patient has progressed toward goals as outlined below. Patient continues to present with impairments in ADL's, flexibility, gait, independence in exercise, overall function, range of motion, strength, and symptom management that interfere with walking, stair negotiation, kneeling, squatting . Currentprognosis is Good due to: current objective clinical presentation, good overall health status, positive past response to therapy, good support system/ coping skills . The patient will benefit from con tinued skilled therapy services to meet the updated goals for this plan of care as noted below. Knee and neck goals: Goals for Episode of Care: established 12/19/23 [place] in home exercise program.--progressing Patient will decrease pain rating by 2 points to meet minimal clinical important difference for numeric pain rating scale.-progressing Patient will increase active ROM of cervical spine and L knee to WNL to allow pt to to improve performance of ADLs.-progressing Patient will demonstrate increase in L knee strength to 4+/5 during manual muscle testing in order to improve function for basic self-care tasks, home management tasks, and prior functional tasks.-progressing Sleep throughout the night without pain/symptoms.-progressing Time Frame for Goals and Treatment : 02/19/24 Planned Interventions, Frequency, and Duration: 1x/week, 4 weeks Total Number of Visits Planned: 4 Patient to be seen for Therapeutic exercise (68516), Neuromuscular re-education (22641), Manual therapy (54458), Therapeutic activities (56251), Self-residential management (30988), Patient/Family/Caregiver Education, Body Mechanics Training PLAN FOR NEXT VISIT: Progress shoulder/neck and knee rehab. SUBJECTIVE: Patient notes knee hurts more than her shoulder. Onset spring 2023, when she rolled herankle while walking and had a fall. Bothers her when she walks. Takes ibuprofen for the pain. Shoulder pain frquency lessening. Functional Limitations: walking, stair negotiation, kneeling, squatting Previous Treatment: NSAIDs Pain: Pain Pain Level: 1 Pain Location: Neck - Left, Neck - Right, Shoulder - Left, Shoulder - Right Pain Level 2: 2 Pain Location 2: Knee - Left Post Treatment Pain Post Treatment Pain Level: No Change PROMIS Scales 01/10/2024 12/12/2023 11/08/2023 Higher is Better Phys Func - Score 45 (within normal limits) 52 (within normal limits) 54 (within normal limits) Phys Func - Percentile 31 58 66 Self-Eff Symptom - Score 48 (Average) 48 (Average) 42 (Average) Self-Eff Symptom - Percentile 42 42 21 T-scores: mean of general population = 50. 5 points is clinically meaningfully difference Percentiles provide an indication of how the patient's score ranks in relation to the general population. Higher percentile rankings indicate better function/quality of life. 50th percentile is the average of the general population and indicates half of respondents had a worse score. OBJECTIVE MEASURES WITH LEVEL OF FUNCTION: Knee Observations L Knee Palpation Tenderness: Patellar tendon (laterally) Spine Observations R Cervical Spine Palpation Tenderness: Upper trapezius, Levator scapulae, Paraspinals L Cervical Spine Palpation Tenderness: Upper trapezius, Levator scapulae, Paraspinals R Thoracic Spine Palpation Tenderness: Trapezius, Rhomboid L Thoracic Spine Palpation Tenderness: Trapezius, Levator Scapulae LE AROM L LE AROM: decreased hip extension ROM R Knee Extension: 0 Degrees R Knee Flexion: 132 Degrees L Knee Extension: -1 Degrees L Knee Flexion: 115 Degrees LE Flexibility Flexibility: Hamstring Flexibility, Hip Flexor Flexibility, Hip External Rotation Flexibility R Hamstring Flexibility: WNL L Hamstring Flexibility: moderate limitation R Hip Flexor Flexibility: minimal limitation L Hip Flexor Flexibility: moderate limitation R Hip External Rotation Flexibility: moderate limitation L Hip External Rotation Flexibility: mild limitation LE Strength R Hip Extension: 4/5 R Hip ABduction: 4-/5 R Knee Extension Functional Strength (L3): 58.2 L Hip Extension: 3+/5 L Hip Flexion (L2): 4/5 L Hip ABduction: 4-/5 L Knee Extension Functional Strength (L3): 36.2 Gait Gait Observation: Mild antalgia, decreased TKE left Stairs: Decreased left push off ascending, decreased eccentric control descending TREATMENT: Therapeutic Exercise: 1: More thorough knee evaluation per above 2: HEP review 3: prone hip extension 2x10 bilat, VC for abdominal activation to reduce LBP 4: *Supine hip flexor stretch of EOB 2x30 sec L 5: Review of relevant anatomy regarding knee pain 6: Discussed of SLR hip abduction, added to HEP Skilled Intervention: Patient was educated in proper exercise technique and purpose for exercises. Reviewed and educated patient on additions/changes for home exercise program as above (*). Skilled judgment was used in selection of appropriate interventions. Provided written instruction for home exercise program to facilitate proper performance and compliance. Correct performance of therapeutic exercises was facilitated with verbal and visual cuing. Patient education as noted. Billing Therapeutic Exercise Treatment Minutes: 40 Skilled Treatment Time Minutes (timed and untimed codes): 40 Total Session Time (minutes): 40 Session Start Time : 1248 Session Stop Time : 1328 Leonard Parmar PT, DPT [facility] History of Present illness Narrative* Gemma Olmedo PTA - 01/10/2024 10:08 AM EST Program_ID:[id number] Access Code: [email or web address] URL: [email or web address] Date: 01-10-2024 Prepared By: Darryl Cardenas Program Notes Exercises - Gentle Levator Scapulae Stretch - 1 x daily - 7 x weekly - 3 sets - 3 reps - Seated Upper Trapezius Stretch - 1 x daily - 7 x weekly - 3 sets - 3 reps - Seated Scapular Retraction - 1 x daily - 7 x weekly - 3 sets - 10 reps - Active Straight Leg Raise with Quad Set - 1-2 x daily - 7 x weekly - 2 sets - 5-10 reps - Supine Quad Set on Towel Roll - 1-2 x daily - 7 x weekly - 2 sets - 5-10 reps - Supine Heel Slide with Strap - 1-2 x daily - 7 x weekly - 2 sets - 5-10 reps * Darryl Cardenas PT - 01/10/2024 9:31 AM EST Episode Visit Count: 2 Therapist That Will Accept/Oversee The Plan Of Care: Darryl Cardenas Start of Care Date: 12/19/23 Onset Date: 02/18/24 Plan of Care Certification Date: 12/19/23 Next Certification Due Date: 02/18/24 Patient Identified by Name and Date of : Yes REHABILITATION AND SPORTS THERAPY PHYSICAL THERAPY TREATMENT NOTE ASSESSMENT: Jaz Dukes tolerated the session with fatigue and expected muscle soreness. She demonstrated difficulty with hip strengthening due to fatigue. Discussed with supervising therapist about completing knee exercises today due to increased pain per pt's report, verified by Darryl Cardenas PT. The patient will continue to benefit from ongoing skilled physical therapy to progress towardset goals. PLAN FOR NEXT VISIT: Asses reponse to knee/hip strengthening. Furthrer evaluate the L knee. SUBJECTIVE: Pt reports that in terms of her upper back the pain is still there, but not as prevelant. Pt states that her L knee is worse today. Swelling in L knee. Pt states that she walks 2 miles per day with dogs. Difficulty climbing stairs, harder than descending the stairs. Pain: Pain Pain Level: 0 Pain Location: Neck - Left, Neck - Right, Shoulder - Left, Shoulder - Right Pain Level 2: 6 Pain Location 2: Knee - Left OBJECTIVE MEASURES WITH LEVEL OF FUNCTION: LE AROM L Knee Extension: -2 Degrees L Knee Flexion: 109 Degrees TREATMENT: Therapeutic Exercise: 1: Scifit Seated Stepper x 3 minutes, seat #9. Minimal knee irritation. (1:1 throughout. Discussed current condition.) 2: Supine heel slides x 10 AROM, painful 3: *Supine heel slides AAROM with strap x 10m, decreased pain 4: *Quad sets with towel roll under knee x 10 5: *SLR 2x5 LLE 6: Prone hip extension 2x5 LLE 7: SL hip abdution 2x5 LLE (very fatiguing) Skilled Intervention: Patient was educated in proper exercise technique and purpose for exercises. Reviewed and educated patient on additions/changes for home exercise program as above (*). Skilled judgment was used in selection of appropriate interventions. Provided written instruction for home exercise program to facilitate proper performance and compliance. Correct performance of therapeutic exercises was facilitated with verbal and visual cuing. Billing Therapeutic Exercise Treatment Minutes: 42 Skilled Treatment Time Minutes (timed and untimed codes): 42 Total Session Time (minutes): 42 Session Start Time : 929 Session Stop Time : 1011 TANISHA Bain PT documented [facility]11-05-2024 NoteHNO ID: [id number] Author: DARRYL CARDENAS PT Service: ? Author Type: Physical Therapist Type: Progress Notes Filed: 01/10/2024 14:52 Note Text: Episode Visit Count: 2 Therapist That Will Accept/Oversee The Plan Of Care: Darryl Cardenas Start of Care Date: 12/19/23 Onset Date: 02/18/24 Plan of Care Certification Date: 12/19/23 Next Certification Due Date: 02/18/24 Patient Identified by Name and Date of : Yes REHABILITATION AND SPORTS THERAPY PHYSICAL THERAPY TREATMENT NOTE ASSESSMENT: Jaz Dukes tolerated the session with fatigue and expected muscle soreness. She demonstrated difficulty with hip strengthening due to fatigue. Discussed with supervising therapist about completing knee exercises today due to increased pain per pt's report, verified by Darryl Cardenas PT. The patient will continue to benefit from ongoing skilled physical therapy to progress toward set goals. PLAN FOR NEXT VISIT: Asses reponse to knee/hip strengthening. Furthrer evaluate the L knee. SUBJECTIVE: Pt reports that in terms of her upper back the pain is still there, but not as prevelant. Pt states that her L knee is worse today. Swelling in L knee. Pt states that she walks 2 miles per day with dogs. Difficulty climbing stairs, harder than descending the stairs. Pain: Pain Pain Level: 0 Pain Location: Neck - Left, Neck - Right, Shoulder - Left, Shoulder - Right Pain Level 2: 6 Pain Location 2: Knee - Left OBJECTIVE MEASURES WITH LEVEL OF FUNCTION: LE AROM L Knee Extension: -2 Degrees L Knee Flexion: 109 Degrees TREATMENT: Therapeutic Exercise: 1: Scifit Seated Stepper x 3 minutes, seat #9. Minimal knee irritation. (1:1 throughout. Discussed current condition.) 2: Supine heel slides x 10 AROM, painful 3: *Supine heel slides AAROM with strap x 10m, decreased pain 4: *Quad sets with towel roll under knee x 10 5: *SLR 2x5 LLE 6: Prone hip extension 2x5 LLE 7: SL hip abdution 2x5 LLE (very fatiguing) Skilled Intervention: Patient was educated in proper exercise technique and purpose for exercises. Reviewed and educated patient on additions/changes for home exercise program as above (*). Skilled judgment was used in selection of appropriate interventions. Provided written instruction for home exercise program to facilitate proper performance and compliance. Correct performance of therapeutic exercises was facilitated with verbal and visual cuing. Billing Therapeutic Exercise Treatment Minutes: 42 Skilled Treatment Time Minutes (timed and untimed codes): 42 Total Session Time (minutes): 42 Session Start Time : 929 Session Stop Time : 101 TANISHA Bain, [facility]10-23-2024 NoteHNO ID: [id number] Author: BEN CHAMBERS MD Service: ? Author Type: Physician Type: Progress Notes Filed: 12/28/2023 18:28 Note Text: Patient presents with: Trauma: 2 tick bites x 3 days HPI: Noted a dark mole she picked off the left neck which has swollen to a bump the last 2 days. She pulled a tick off her right collar today. She walks outside regularly and suspects that is where it came from. She has no rash, fever, or arthralgia. She does have a headache today but was attending a before coming here (friend in the hospital for weeks) and attributes it to that. MEDICATIONS: minoxidil (LONITEN) 2.5 mg tablet take 1/4 OF a tablet EVERY DAY finasteride (PROPECIA) 1 mg tablet Take 1 tablet by mouth every afternoon. LORazepam (ATIVAN) 0.5 mg Take by mouth three times a day as needed. estradiol (ESTRACE) 0.01 % (0.1 mg/gram) vaginal cream Use 1g vaginally 2 times per week. EPINEPHrine (EPIPEN) 0.3 mg/0.3 mL auto-injector Inject 0.3 mL intramuscularly as directed. use as directed for allergic reaction. Seek emergent medical immediately after use. tacrolimus (PROTOPIC) 0.1 % ointment Apply to affected area two times a day. triamcinolone acetonide (KENALOG) 0.1 % cream Apply 1 application to affected area two times a day. Apply to affected area. Location: back lisinopril (ZESTRIL) 5 mg tablet Take 1 tablet by mouth once daily. sertraline (ZOLOFT) 100 mg tablet take 1 tablet daily ezetimibe (ZETIA) 10 mg tablet take 1 tablet daily sodium chloride (SALINE NASAL) 0.65 % nasal spray Use 2-3 Sprays in the nose three times a day. fluticasone (FLONASE) 50 mcg/actuation nasal spray Use 2 Sprays in each nostril once daily. Rinse mouth after use. methocarbamol (ROBAXIN) 500 mg tablet Take 0.5 tablets by mouth at bedtime as needed. Can take half to one pill a day as needed (Patient not taking: Reported on 12/28/2023) doxycycline hyclate (VIBRAMYCIN) 100 mg capsule Take 100 mg by mouth. (Patient not taking: Reported on 12/28/2023) ALLERGIES: ALLERGIES Allergen Reactions Allergen Ext-Venom-* Mold Propolis (Bee Glue) VITALS: BP 100/68 Pulse 65 Temp 36.3 ?C (97.3 ?F) Resp 21 Wt 62.1 kg (136 lb 14.5 oz) LMP 12/12/2009 SpO2 98% BMI 25.66 kg/m? PE: Pleasant, in no acute distress. SKIN: embedded tick parts above the left clavicle. A few small parts were further removed with tweezers. 7mm slightly raised erythematous indurated area with central punctate clear-white eschar left posterior neck; no fluctuance. ASSESSMENT/PLAN: 1. Tick bite of neck, initial encounter - ICD9: 910.4, E906.4, ICD10: S10.96XA, W57.XXXA Right neck tick, left neck inflamed area may have been from a avulsed skin tag or tick. Prophylactic lyme dose - DOXYCYCLINE MONOHYDRATE 100 MG CAPSULE Ben Chambers, [facility]10-23-2024 History of Present illness Narrative* Ben Chambers MD - 12/28/2023 6:09 PM EDT Patient presents with: Trauma: 2 tick bites x 3 days HPI: Noted a dark mole she picked off the left neck which has swollen to a bump the last 2 days. She pulled a tick off her right collar today. She walks outside regularly and suspects that is where it came from. She has no rash, fever, or arthralgia. She does have a headache today but was attending a before coming here (friend in the hospital for weeks) and attributes it to that. MEDICATIONS: minoxidil (LONITEN) 2.5 mg tablet take 1/4 OF a tablet EVERY DAY finasteride (PROPECIA) 1 mg tablet Take 1 tablet by mouth every afternoon. LORazepam (ATIVAN) 0.5 mg Take by mouth three times a day as needed. estradiol (ESTRACE) 0.01 % (0.1 mg/gram) vaginal cream Use 1g vaginally 2 times per week. EPINEPHrine (EPIPEN) 0.3 mg/0.3 mL auto-injector Inject 0.3 mL intramuscularly as directed. use as directed for allergic reaction. Seek emergent medical immediately after use. tacrolimus (PROTOPIC) 0.1 % ointment Apply to affected area two times a day. triamcinolone acetonide (KENALOG) 0.1 % cream Apply 1 application to affected area two times a day.Apply to affected area. Location: back lisinopril (ZESTRIL) 5 mg tablet Take 1 tablet by mouth once daily. sertraline (ZOLOFT) 100 mg tablet take 1 tablet daily ezetimibe (ZETIA) 10 mg tablet take 1 tablet daily sodium chloride (SALINE NASAL) 0.65 % nasal spray Use 2-3 Sprays in the nose three times a day. fluticasone (FLONASE) 50 mcg/actuation nasal spray Use 2 Sprays in each nostril once daily. Rinse mouth after use. methocarbamol (ROBAXIN) 500 mg tablet Take 0.5 tablets by mouth at bedtime as needed. Can take halfto one pill a day as needed (Patient not taking: Reported on 12/28/2023) doxycycline hyclate (VIBRAMYCIN) 100 mg capsule Take 100 mg by mouth. (Patient not taking: Reportedon 12/28/2023) ALLERGIES: ALLERGIES Allergen Reactions Allergen Ext-Venom-* Mold Propolis (Bee Glue) VITALS: BP 100/68 Pulse 65 Temp 36.3 C (97.3 F) Resp 21 Wt 62.1 kg (136 lb 14.5 oz) LMP 12/12/2009 SpO2 98% BMI 25.66 kg/m PE: Pleasant, in no acute distress. SKIN: embedded tick parts above the left clavicle. A few small parts were further removed with tweezers. 7mm slightly raised erythematous indurated area with central punctate clear-white eschar left posterior neck; no fluctuance. ASSESSMENT/PLAN: 1. Tick bite of neck, initial encounter - ICD9: 910.4, E906.4, ICD10: S10.96XA, W57.XXXA Right neck tick, left neck inflamed area may have been from a avulsed skin tag or tick. Prophylactic lyme dose - DOXYCYCLINE MONOHYDRATE 100 MG CAPSULE Ben Chambers MD documented [facility]10-[facility]24 NoteHNO ID: [id number] Author: DARRYL CARDENAS PT Service: ? Author Type: Physical Therapist Type: Progress Notes Filed: 12/20/2023 15:16 Note Text: Episode Visit Count: 1 Therapist That Will Accept/Oversee The Plan Of Care: Darryl Cardenas Start of Care Date: 12/19/23 Onset Date: 02/18/24 Plan of Care Certification Date: 12/19/23 Next Certification Due Date: 02/18/24 Patient Identified by Name and Date of : Yes REHABILITATION AND SPORTS THERAPY PHYSICAL THERAPY EVALUATION PLAN OF CARE: Assessment: Jaz Dukes presents with chief complaint of neck pain and L knee pain that interferes with stair negotiation, physical activities, recreational activities, walking in the community, squatting . The patient presents with impairments in ADL's, overall function, range of motion, symptom management, and tissue tenderness. PROMIS? (Patient-Reported Outcomes Measurement Information System) scores were reviewed and identified as within normal limits. Prognosis for therapy is Good due to: current objective clinical presentation, good overall health status, positive past response to therapy, good support system/ coping skills . The patient will benefit from skilled therapy services to meet the goals established for this plan of care as noted below. Goals for Episode of Care: established 12/19/23 [place] in home exercise program. Patient will decrease pain rating by 2 points to meet minimal clinical important difference for numeric pain rating scale. Patient will increase active ROM of cervical spine and L knee to WNL to allow pt to to improve performance of ADLs. Patient will demonstrate increase in L knee strength to 4+/5 during manual muscle testing in order to improve function for basic self-care tasks, home management tasks, and prior functional tasks. Sleep throughout the night without pain/symptoms. Time Frame for Goals and Treatment : 02/19/24 Planned Interventions, Frequency, and Duration: Current Frequency: 1x/week Duration: 8 weeks Total Number of Visits Planned: 8 Planned Treatment Interventions: Therapeutic exercise (65927), Neuromuscular re-education (92171), Manual therapy (99566), Therapeutic activities (10074), Self-residential management (16402), Patient/Family/Caregiver Education, Body Mechanics Training PLAN FOR NEXT VISIT: Manual to cervical mm and rhomboids. May evaluate knee Patient demonstrates good understanding of plan of care and treatment. The above goals and plan of care were discussed and agreed upon by patient/family. SUBJECTIVE: L knee pain after a fall when walking her dogs. Notes that the knee swells and hurts real bad a few times a week. Unsure why it swells, has not been able to ID a rhyme or reason. Pain is pinpointed to the lateral knee/joint line. Patient also has bilateral shoulder/neck pain for 6 months. Notes the L side is a constant knife stab, and the R is intermittent but very sharp and can take her breath away. Functional Limitations: stair negotiation, physical activities, recreational activities, walking in the community, squatting Prior Level of Function: Independent without limitations Intake Information: Prescription present Pain: Pain Pain Level: 8 Pain Location: Neck - Left, Neck - Right, Shoulder - Left, Shoulder - Right Description: Sharp, Aching, Tightness Frequency: Continuous Additional Pain Information : Location 2 Pain Level 2: 5 Pain Location 2: Knee - Left Description 2: Aching, Sore Frequency 2: Continuous PROMIS Scales 12/12/2023 11/08/2023 09/01/2020 Higher is Better Phys Func - Score 52 (within normal limits) 54 (within normal limits) 49 (within normal limits) Phys Func - Percentile 58 66 46 Self-Eff Symptom - Score 48 (Average) 42 (Average) 55 (Average) Self-Eff Symptom - Percentile 42 21 69 T-scores: mean of general population = 50. 5 points is clinically meaningfully difference Percentiles provide an indication of how the patient's score ranks in relation to the general population. Higher percentile rankings indicate better function/quality of life. 50th percentile is the average of the general population and indicates half of respondents had a worse score. OBJECTIVE MEASURES WITH LEVEL OF FUNCTION: Spine Observations R Cervical Spine Palpation Tenderness: Upper trapezius, Levator scapulae, Paraspinals L Cervical Spine Palpation Tenderness: Upper trapezius, Levator scapulae, Paraspinals R Thoracic Spine Palpation Tenderness: Trapezius, Rhomboid L Thoracic Spine Palpation Tenderness: Trapezius, Levator Scapulae Cervical Spine ROM Cervical ROM : Limitation AROM Cervical Flexion AROM: Minimal limitation Cervical Extension AROM: Minimal limitation Cervical Side-Bend Right AROM: Moderate limitation Cervical Side-Bend Left AROM: Moderate limitation Cervical Rotation Right AROM: Moderate limitation Cervical Rotation Left AROM: Moderate limitation UE and Cervic (more content not included)...[facility]10-15-2024 History of Present illness Narrative* Darryl Cardenas, PT - 12/20/2023 3:11 PM EDT Episode Visit Count: 1 Therapist That Will Accept/Oversee The Plan Of Care: Darryl Cardenas Start of Care Date: 12/19/23 Onset Date: 02/18/24 Plan of Care Certification Date: 12/19/23 Next Certification Due Date: 02/18/24 Patient Identified by Name and Date of : Yes REHABILITATION AND SPORTS THERAPY PHYSICAL THERAPY EVALUATION PLAN OF CARE: Assessment: Jaz Dukes presents with chief complaint of neck pain and L knee pain that interferes with stair negotiation, physical activities, recreational activities, walking in the community, squatting . The patient presents with impairments in ADL's, overall function, range of motion, symptom management, and tissue tenderness. PROMIS (Patient-Reported Outcomes Measurement Information System) scores were reviewed and identified as within normal limits. Prognosis for therapy is Good dueto: current objective clinical presentation, good overall health status, positive past response to therapy, good support system/ coping skills . The patient will benefit from skilled therapy servicesto meet the goals established for this plan of care as noted below. Goals for Episode of Care: established 12/19/23 [place] in home exercise program. Patient will decrease pain rating by 2 points to meet minimal clinical important difference for numeric pain rating scale. Patient will increase active ROM of cervical spine and L knee to WNL to allow pt to to improve performance of ADLs. Patient will demonstrate increase in L knee strength to 4+/5 during manual muscle testing in order to improve function for basic self-care tasks, home management tasks, and prior functional tasks. Sleep throughout the night without pain/symptoms. Time Frame for Goals and Treatment : 02/19/24 Planned Interventions, Frequency, and Duration: Current Frequency: 1x/week Duration: 8 weeks Total Number of Visits Planned: 8 Planned Treatment Interventions: Therapeutic exercise (67845), Neuromuscular re- education (98038), Manual therapy (08188), Therapeutic activities (31028), Self- residential management (37137), Patient/Family/Caregiver Education, Body Mechanics Training PLAN FOR NEXT VISIT: Manual to cervical mm and rhomboids. May evaluate knee Patient demonstrates good understanding of plan of care and treatment. The above goals and plan of care were discussed and agreed upon by patient/family. SUBJECTIVE: L knee pain after a fall when walking her dogs. Notes that the knee swells and hurts real bad a fewtimes a week. Unsure why it swells, has not been able to ID a rhyme or reason. Pain is pinpointed to the lateral knee/joint line. Patient also has bilateral shoulder/neck pain for 6 months. Notes theL side is a constant knife stab, and the R is intermittent but very sharp and can take her breath away. Functional Limitations: stair negotiation, physical activities, recreational activities, walking inthe community, squatting Prior Level of Function: Independent without limitations Intake Information: Prescription present Pain: Pain Pain Level: 8 Pain Location: Neck - Left, Neck - Right, Shoulder - Left, Shoulder - Right Description: Sharp, Aching, Tightness Frequency: Continuous Additional Pain Information : Location 2 Pain Level 2: 5 Pain Location 2: Knee - Left Description 2: Aching, Sore Frequency 2: Continuous PROMIS Scales 12/12/2023 11/08/2023 09/01/2020 Higher is Better Phys Func - Score 52 (within normal limits) 54 (within normal limits) 49 (within normal limits) Phys Func - Percentile 58 66 46 Self-Eff Symptom - Score 48 (Average) 42 (Average) 55 (Average) Self-Eff Symptom - Percentile 42 21 69 T-scores: mean of general population = 50. 5 points is clinically meaningfully difference Percentiles provide an indication of how the patient's score ranks in relation to the general population. Higher percentile rankings indicate better function/quality of life. 50th percentile is the average of the general population and indicates half of respondents had a worse score. OBJECTIVE MEASURES WITH LEVEL OF FUNCTION: Spine Observations R Cervical Spine Palpation Tenderness: Upper trapezius, Levator scapulae, Paraspinals L Cervical Spine Palpation Tenderness: Upper trapezius, Levator scapulae, Paraspinals R Thoracic Spine Palpation Tenderness: Trapezius, Rhomboid L Thoracic Spine Palpation Tenderness: Trapezius, Levator Scapulae Cervical Spine ROM Cervical ROM : Limitation AROM Cervical Flexion AROM: Minimal limitation Cervical Extension AROM: Minimal limitation Cervical Side-Bend Right AROM: Moderate limitation Cervical Side-Bend Left AROM: Moderate limitation Cervical Rotation Right AROM: Moderate limitation Cervical Rotation Left AROM: Moderate limitation UE and Cervical Strength R UE Strength: 5/5 L UE Strength: 5/5 Special Tests - Cervical Cervical Special Tests: Cervical Compression, Cervical Distraction, Quadrant, Spurling Cervical Compression: Negative Cervical Distraction: Negative Quadrant: Right Positive, Left Positive Spurling: Right Positive, Left Positive Education: Education Learning/educational needs: Home exercise program, Plan of Care, Changes in Plan of Care, Posture, Body Mechanics TREATMENT: PT Treatment Interventions: Therapeutic Exercise, Manual Therapy Evaluation Therapeutic Exercise: 1: *Upper trap stretch 3x30 sec/side 2: *Levator stretch 3x30 sec/side 3: *Scap retractions 3x10, 2-3 sec holds Skilled Intervention: Patient was educated in proper exercise technique and purpose for exercises. Skilled judgment was used in selection of appropriate interventions. Provided written instruction for home exercise program to facilitate proper performance and compliance. Correct performance of therapeutic exercises was facilitated with verbal, visual, and tactile cuing. Manual Therapy: 1: Manual cervical traction x5 min 2: STM to B cervical paraspinals, upper traps, and levators with push to tolerance Skilled Intervention: Manual skills to improve joint mobility, ROM, and decrease pain. Utilized anatomy knowledge of the therapist, and assessment of patient's response to intervention. Billing * Evaluation Low Complexity: 1 Unit Therapeutic Exercise Treatment Minutes: 5 Manual TherapyTreatment Minutes: 10 Skilled Treatment Time Minutes (timed and untimed codes): 35 Total Session Time (minutes): 35 Session Start Time : 1135 Session Stop Time : 1210 Darryl Cardenas PT * Darryl Cardenas PT - 12/19/2023 12:03 PM EDT Program_ID:[id number] Access Code: [email or web address] URL: [email or web address]/ Date: 12-19-2023 Prepared By: Darryl Cardenas Program Notes Exercises - Gentle Levator Scapulae Stretch - 1 x daily - 7 x weekly - 3 sets - 3 reps - Seated Upper Trapezius Stretch - 1 x daily - 7 x weekly - 3 sets - 3 reps - Seated Scapular Retraction - 1 x daily - 7 x weekly - 3 sets - 10 reps [facility] NoteHNO ID: [id number] Author: LIZA PATRICIO PT Service: ? Author Type: Physical Therapist Type: Progress Notes Filed: 12/12/2023 12:50 Note Text: Episode Visit Count: 3 Therapist That Will Accept/Oversee The Plan Of Care: Alonso Patricio Start of Care Date: 11/10/23 Onset Date: 11/09/20 Plan of Care Certification Date: 12/12/23 Next Certification Due Date: 01/12/24 Patient Identified by Name and Date of : Yes REHABILITATION AND SPORTS THERAPY PHYSICAL THERAPY PROGRESS REPORT PLAN OF CARE UPDATE: Assessment: Jaz Dukes demonstrates moderate improvement in compromised bladder function. The patient has progressed toward goals. Patient continues to present with impairments in independence in exercise, overall function, strength, and symptom management that interfere with bladder function . Current prognosis is Excellent due to: current objective clinical presentation, good overall health status . The patient will benefit from continued skilled therapy services to meet the updated goals for this plan of care as noted below. Goals for Episode of Care: established 11/10/23 Patient demonstrates independence and compliance with home exercise program. Patient to increase strength of pelvic floor to Power 5/5, Endurance 10/10, and Repetitions 10/10 in order to improve bladder/bowel control. Patient to correctly isolate pelvic floor muscles without compensatory patterns of breath holding, adductor use, gluteal use, and abdominal use to improve bladder/bowel control. Patient reports decreased frequency of urine/stool leakage to 0 times per day to demonstrate improved bladder/bowel control and increase confidence in community/social settings. Patient reports 100% less bladder/bowel leaks with external trigger to avoid incontinent episodes. Patient reports 100% improvement in bladder/bowel leaks while coughing/sneezing compared to evaluation in order to increase bladder and bowel function in activities of daily living. Patient can perform all activities of daily living, work, and recreational activities with 100 % bladder/bowel continence. Patient Goals: normal bladder function Time Frame for Goals and Treatment : 02/09/24 Patient Goals: normal bladder function Planned Interventions, Frequency, and Duration: 1x/week, 12 weeks Total Number of Visits Planned: 12 Patient to be seen for Therapeutic exercise (86299), Neuromuscular re-education (97460), Manual therapy (97083), Therapeutic activities (03208), Self-residential management (82072), Biofeedback Pelvic ([id number],[id number]) PLAN FOR NEXT VISIT: POC updated today; continue to progress PFMT and core stability towards improved management of urinary incontinence symtpoms SUBJECTIVE: Pt denies any changes in symtpoms but more aware of PF muscles. Pt has been performing kegels and notes PFMT using biofeedback seemed to be helpful at previous session.. Patient Goals: normal bladder function Functional Limitations: bladder function Pain: Pain Pain Level: 0 Pain Location: Low Back/Lumbar Spine- Midline PROMIS Scales 12/12/2023 11/08/2023 09/01/2020 Higher is Better Phys Func - Score 52 (within normal limits) 54 (within normal limits) 49 (within normal limits) Phys Func - Percentile 58 66 46 Self-Eff Symptom - Score 48 (Average) 42 (Average) 55 (Average) Self-Eff Symptom - Percentile 42 21 69 T-scores: mean of general population = 50. 5 points is clinically meaningfully difference Percentiles provide an indication of how the patient's score ranks in relation to the general population. Higher percentile rankings indicate better function/quality of life. 50th percentile is the average of the general population and indicates half of respondents had a worse score. OBJECTIVE MEASURES WITH LEVEL OF FUNCTION: Pelvic Floor Muscle Assessment Pelvic Floor Muscle Assessment: PERFECT (testing deferred today) TREATMENT: Therapeutic Exercise: 1: GS in hooklying 20 x 5 sec 2: hooklying hip add 20 x 10 sec 3: TA with PPT 10 x 5 sec 4: belly breathing 5x in hooklying 5: hooklying hips abd green t-band 20 x 5 sec 6: hooklying l-stab marches 20 x B alternating with cues for TA activation 7: *HEP updated today with prinout of all ther expernce Skilled Intervention: Patient was educated in proper exercise technique and purpose for exercises. Skilled judgment was used in selection of appropriate interventions. Modalities: Biofeedback/Pelvic Health Biofeedback/Incontinence: Promethius biofeedback PFMT for urinary incontinence program J for 5 sec on, 10 sec off with instruction sherrill on proper contract/relax; additional time for proper set up and education Skilled Intervention: Proper administration and selection of modality based on clinical presentation, deficits, and needs. Patient response monitored throughout treatment. Billing Therapeutic Exercise Treatment Minutes: 16 Biofeedback Pelvic Health Ini (more content not included)...[facility] 12-12-2023 History of Present illness Narrative* Liza Patricio, PT - 12/12/2023 12:29 PM EDT Episode Visit Count: 3 Therapist That Will Accept/Oversee The Plan Of Care: Alonso Patricio Start of Care Date: 11/10/23 Onset Date: 11/09/20 Plan of Care Certification Date: 12/12/23 Next Certification Due Date: 01/12/24 Patient Identified by Name and Date of : Yes REHABILITATION AND SPORTS THERAPY PHYSICAL THERAPY PROGRESS REPORT PLAN OF CARE UPDATE: Assessment: Jaz Dukes demonstrates moderate improvement in compromised bladder function. The patient has progressed toward goals. Patient continues to present with impairments in independence in exercise, overall function, strength, and symptom management that interfere with bladder function . Current prognosis is Excellent due to: current objective clinical presentation, good overall health status .The patient will benefit from continued skilled therapy services to meet the updated goals for thisplan of care as noted below. Goals for Episode of Care: established 11/10/23 Patient demonstrates independence and compliance with home exercise program. Patient to increase strength of pelvic floor to Power 5/5, Endurance 10/10, and Repetitions 10/10 in order to improve bladder/bowel control. Patient to correctly isolate pelvic floor muscles without compensatory patterns of breath holding, adductor use, gluteal use, and abdominal use to improve bladder/bowel control. Patient reports decreased frequency of urine/stool leakage to 0 times per day to demonstrate improved bladder/bowel control and increase confidence in community/social settings. Patient reports 100% less bladder/bowel leaks with external trigger to avoid incontinent episodes. Patient reports 100% improvement in bladder/bowel leaks while coughing/sneezing compared to evaluation in order to increase bladder and bowel function in activities of daily living. Patient can perform all activities of daily living, work, and recreational activities with 100 % bladder/bowel continence. Patient Goals: normal bladder function Time Frame for Goals and Treatment : 02/09/24 Patient Goals: normal bladder function Planned Interventions, Frequency, and Duration: 1x/week, 12 weeks Total Number of Visits Planned: 12 Patient to be seen for Therapeutic exercise (03425), Neuromuscular re-education (42134), Manual therapy (89740), Therapeutic activities (15717), Self-residential management (24329), Biofeedback Pelvic (70180,28404) PLAN FOR NEXT VISIT: POC updated today; continue to progress PFMT and core stability towards improved management of urinary incontinence symtpoms SUBJECTIVE: Pt denies any changes in symtpoms but more aware of PF muscles. Pt has been performing kegels and notes PFMT using biofeedback seemed to be helpful at previous session.. Patient Goals: normal bladder function Functional Limitations: bladder function Pain: Pain Pain Level: 0 Pain Location: Low Back/Lumbar Spine- Midline PROMIS Scales 12/12/2023 11/08/2023 09/01/2020 Higher is Better Phys Func - Score 52 (within normal limits) 54 (within normal limits) 49 (within normal limits) Phys Func - Percentile 58 66 46 Self-Eff Symptom - Score 48 (Average) 42 (Average) 55 (Average) Self-Eff Symptom - Percentile 42 21 69 T-scores: mean of general population = 50. 5 points is clinically meaningfully difference Percentiles provide an indication of how the patient's score ranks in relation to the general population. Higher percentile rankings indicate better function/quality of life. 50th percentile is the average of the general population and indicates half of respondents had a worse score. OBJECTIVE MEASURES WITH LEVEL OF FUNCTION: Pelvic Floor Muscle Assessment Pelvic Floor Muscle Assessment: PERFECT (testing deferred today) TREATMENT: Therapeutic Exercise: 1: GS in hooklying 20 x 5 sec 2: hooklying hip add 20 x 10 sec 3: TA with PPT 10 x 5 sec 4: belly breathing 5x in hooklying 5: hooklying hips abd green t-band 20 x 5 sec 6: hooklying l-stab marches 20 x B alternating with cues for TA activation 7: *HEP updated today with prinout of all ther expernce Skilled Intervention: Patient was educated in proper exercise technique and purpose for exercises. Skilled judgment was used in selection of appropriate interventions. Modalities: Biofeedback/Pelvic Health Biofeedback/Incontinence: Promethius biofeedback PFMT for urinary incontinence program J for 5 sec on, 10 sec off with instruction michelleuhmg on proper contract/relax; additional time for proper set up and education Skilled Intervention: Proper administration and selection of modality based on clinical presentation, deficits, and needs. Patient response monitored throughout treatment. Billing Therapeutic Exercise Treatment Minutes: 16 Biofeedback Pelvic Health Initial 15 min Treatment Minutes: 15 Biofeedback Pelvic Health Ea Addtl 15 min Treatment Minutes: 12 Total Session Time (minutes): 43 Session Start Time : 1015 Session Stop Time : 1058 Liza Patricio PT * Liza Patricio PT - 12/12/2023 10:53 AM EDT Program_ID:[id number] Access Code: [email or web address] URL: [email or web address]/ Date: 12-12-2023 Prepared By: LIZA PATRICIO Program Notes Exercises - Hooklying Gluteal Sets - 1 x daily - 7 x weekly - 3 sets - 10 reps - Supine Hip Adduction Isometric with Ball - 1 x daily - 7 x weekly - 3 sets - 10 reps - Supine Transversus Abdominis Bracing - Hands on Stomach - 1 x daily - 7 x weekly - 3 sets - 10 reps - Supine Diaphragmatic Breathing - 1 x daily - 7 x weekly - 3 sets - 10 reps - Supine March - 1 x daily - 7 x weekly - 3 sets - 10 reps - Hooklying Clamshell with Resistance - 1 x daily - 7 x weekly - 3 sets - 10 reps [facility] NoteHNO ID: [id number] Author: LIZA PATRICIO PT Service: ? Author Type: Physical Therapist Type: Progress Notes Filed: 12/02/2023 13:54 Note Text: Episode Visit Count: 2 Therapist That Will Accept/Oversee The Plan Of Care: Alonso Patricio Start of Care Date: 11/10/23 Onset Date: 11/09/20 Plan of Care Certification Date: 11/10/23 Next Certification Due Date: 12/10/23 Patient Identified by Name and Date of : Yes REHABILITATION AND SPORTS THERAPY PHYSICAL THERAPY TREATMENT NOTE ASSESSMENT: Jaz Dukes tolerated the session with no issues. She demonstrated improvements in ability to trial biofeedback for PFMT. The patient will continue to benefit from ongoing skilled physical therapy to progress toward set goals. PLAN FOR NEXT VISIT: monitor response to biofeedback for PFMT SUBJECTIVE: Pt denies any changes in urinary symtpoms so far, but is more aware of plan and techniques for addressing symptoms after reviewing educational materials issued at time of eval. Patient Goals: normal bladder function Functional Limitations: bladder function Pain: Pain Pain Level: 0 Pain Location: Low Back/Lumbar Spine- Midline Post Treatment Pain Post Treatment Pain Level: No Change OBJECTIVE MEASURES WITH LEVEL OF FUNCTION: Pelvic Floor Muscle Assessment Consent for pelvic assessment/testing and treatment: Patient was educated regarding pelvic floor physical therapy assessment/treatment which may include pelvic floor and girdle muscle assessment externally or internally (vaginal or rectal approach)., Patient verbalized consent for the above treatment approaches today. Patient understands they have control of the treatment and an opportunity to stop treatment at any time. TREATMENT: Modalities: Biofeedback/Pelvic Health Biofeedback/Incontinence: Promethius biofeedback PFMT for urinary incontinence program J for 5 sec on, 10 sec off with instruction [email or web address] on proper contract/relax; additional time for proper set up and education Skilled Intervention: Proper administration and selection of modality based on clinical presentation, deficits, and needs. Patient response monitored throughout treatment. Billing Biofeedback Pelvic Health Initial 15 min Treatment Minutes: 16 Biofeedback Pelvic Health Ea Addtl 15 min Treatment Minutes: 15 Skilled Treatment Time Minutes (timed and untimed codes): 31 Total Session Time (minutes): 31 Session Start Time : 1044 Session Stop Time : [address] [facility] of Present illness Narrative* Boni Patriciofredy Cordero, PT - 12/02/2023 1:52 PM EDT Episode Visit Count: 2 Therapist That Will Accept/Oversee The Plan Of Care: Alonso Patricio Start of Care Date: 11/10/23 Onset Date: 11/09/20 Plan of Care Certification Date: 11/10/23 Next Certification Due Date: 12/10/23 Patient Identified by Name and Date of : Yes REHABILITATION AND SPORTS THERAPY PHYSICAL THERAPY TREATMENT NOTE ASSESSMENT: Jaz Dukes tolerated the session with no issues. She demonstrated improvements in ability to trial biofeedback for PFMT. The patient will continue to benefit from ongoing skilled physical therapy to progress toward set goals. PLAN FOR NEXT VISIT: monitor response to biofeedback for PFMT SUBJECTIVE: Pt denies any changes in urinary symtpoms so far, but is more aware of plan and techniques for addressing symptoms after reviewing educational materials issued at time of eval. Patient Goals: normal bladder function Functional Limitations: bladder function Pain: Pain Pain Level: 0 Pain Location: Low Back/Lumbar Spine- Midline Post Treatment Pain Post Treatment Pain Level: No Change OBJECTIVE MEASURES WITH LEVEL OF FUNCTION: Pelvic Floor Muscle Assessment Consent for pelvic assessment/testing and treatment: Patient was educated regarding pelvic floor physical therapy assessment/treatment which may include pelvic floor and girdle muscle assessment externally or internally (vaginal or rectal approach)., Patient verbalized consent for the above treatment approaches today. Patient understands they have control of the treatment and an opportunity to stop treatment at any time. TREATMENT: Modalities: Biofeedback/Pelvic Health Biofeedback/Incontinence: Promethius biofeedback PFMT for urinary incontinence program J for 5 sec on, 10 sec off with instruction throuhgout on proper contract/relax; additional time for proper set up and education Skilled Intervention: Proper administration and selection of modality based on clinical presentation, deficits, and needs. Patient response monitored throughout treatment. Billing Biofeedback Pelvic Health Initial 15 min Treatment Minutes: 16 Biofeedback Pelvic Health Ea Addtl 15 min Treatment Minutes: 15 Skilled Treatment Time Minutes (timed and untimed codes): 31 Total Session Time (minutes): 31 Session Start Time : 1044 Session Stop Time : 1115 Liza Patricio PT documented [facility] encounterM[facility]-24-[facility] History of Present illness Narrative* Juilane Ocampo RT(R) - 11/29/2023 11:30 AM EDT Radiology Service Progress Note PATIENT NAME: Jaz Dukes DATE OF SERVICE: November 29, 2023 TIME: 11:27 AM PATIENT IDENTITY VERIFICATION COMPLETED USING TWO (2) IDENTIFIERS: Name and Date of confirmedby patient verbally. FALL SCREENING: Has the patient had 2 falls in the last year or 1 fall with injury or currently using an Ambulatory Assistive Device (Walker, Cane, Wheelchair, Crutches, etc.)? No PATIENT GENDER DATA: Female. status: : No status: NO. PATIENT RELEVANT IMPLANT DATA REVIEWED: Not Applicable PATIENT PRESENTS WITH AN IMPLANTABLE OR ATTACHED GREEN HIDE INSPECTOR: No RADIOLOGY DEPARTMENT: General X-ray: Exam(s) Completed: Lower Extremity X- Ray(s): Knee, AP / Lat / Tunne / Merchant Left and Wt. Bearing PERIPHERAL IV DATA: Not applicable SIGNED BY: RT Ciera(R) November 29, 2023 11:27 AM documented in this encounterMarietta [facility]09-24-2024 History of Present illness Narrative* Micah High MD - 11/29/2023 10:37 AM EDT Reason for Visit Patient presents with: Left Knee Pain Jaz Dukes is a 68 year old female who presents here today for Above Complaints.. Health Maintenance BP Controlled (<130/80) Advance Directive Discussion Covid-19 Vaccine( season) Influenza Vaccine(1) EVENS Hebert is a very pleasant 68-year-old with a past medical history of hypertension, depression, hyperlipidemia, anxiety especially for flying and hair loss. Some stress in the past week, with friend who is sick, and she has to care for her cats, helps taking care of her OLIVIA. All the illness can be overwhelming for her. 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 On Minoxidil anad finsteride and she is growing back hair slowly. Left knee pain: she walks at the [employer], usually walks there. She fell on her left kneeand since then she has been having trouble with water under the knee at the end of the day. In the evening and night it is all swollen. In the morning when she wakes up it and moves it, it hurts her.Resting does not hurt. During the day it gets worse and swelling in the evening with out much pain.It is kind of consistent but more swollen in the evening. Brufen helps relieve the pain. She is also taking the benadryl helps her. Has not used a knee brace still. Patient has been having shoulder pain for the past few weeks, certain movements maker her feel likeshe has a stabbing pain at the point where the levator scapula is attached No problem-specific Assessment & Plan notes found for this encounter. PAST MEDICAL HISTORY Diagnosis Date Abnormal glandular Papanicolaou smear of cervix 04/23/2005 Abn. 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 Hypertension Internal hemorrhoids without mention of complication Irregular menstrual cycle perimenopausal bleeding Snoring PAST SURGICAL HISTORY Procedure Laterality Date BIOPSY BREAST OPEN INCISIONAL 11/28/2000 left breast COLONOSCOPY FLX DX W/COLLJ SPEC WHEN PFRMD 05/17/2006 COLONOSCOPY FLX DX W/COLLJ SPEC WHEN PFRMD 06/16/2017 Colonoscopy COLPOSCOPY CERVIX UPPER/ADJACENT VAGINA 07/15/2000 Colposcopy CONIZATION CERVIX W/WO D&C RPR ELTRD EXC 08/03/2000 LEEP-Cervix LIG/TRNSXJ FLP TUBE ABDL/VAG APPR UNI/BI 05/27/1992 Tubal ligation, BPS OTHER MOHS- removal of squamous cells PAST SURGICAL HISTORY OF 1981 Broken Nose Repair PAST SURGICAL HISTORY OF 09/17/2004 EMB PAST SURGICAL HISTORY OF 09/2004 BONE DENSITTY SKIN BX, 1 LESION 12/15/2000 basal cell CA, on face SKIN EXCISION 12/23/2021 excision skin cyst lower back TONSILLECTOMY PRIMARY/SECONDARY <AGE 12 Tonsillectomy FAMILY HISTORY Problem Relation Age of Onset Diabetes Father non-insulin Cancer Father Bladder and Basil Cell Cancer Paternal Grandmother Ovarian age 45 Lipids Mother Hyperlipidemia,stroke Heart Mother 65 [place] Hypertension Mother Arthritis Mother Cancer Mother Skin cancer - unsure of cell type other (heartburn) Son other (Other) Other No breast/uterine/colon cancer other (melanoma) Daughter Social History Tobacco Use Smoking status: Never Smokeless tobacco: Never Vaping Use Vaping status: Never Used Substance Use Topics Alcohol use: Yes Alcohol/week: 14.0 standard drinks of alcohol Types: 14 Glasses of Wine (5oz) per week Drug use: No Past medical history, appointments, medications, allergies reviewed. Pertinent Lab/Diagnostic Studies are reviewed and discussed today Current Outpatient Medications: minoxidil (LONITEN) 2.5 mg tablet finasteride (PROPECIA) 1 mg tablet doxycycline hyclate (VIBRAMYCIN) 100 mg capsule LORazepam (ATIVAN) 0.5 mg estradiol (ESTRACE) 0.01 % (0.1 mg/gram) vaginal cream EPINEPHrine (EPIPEN) 0.3 mg/0.3 mL auto-injector tacrolimus (PROTOPIC) 0.1 % ointment triamcinolone acetonide (KENALOG) 0.1 % cream lisinopril (ZESTRIL) 5 mg tablet sertraline (ZOLOFT) 100 mg tablet ezetimibe (ZETIA) 10 mg tablet sodium chloride (SALINE NASAL) 0.65 % nasal spray fluticasone (FLONASE) 50 mcg/actuation nasal spray Review of Systems CONSTITUTIONAL: No fevers, chills night sweats, unintended weight loss CARDIOVASCULAR: No chest pain, dyspnea, palpitations, orthopnea, PND, ankle edema. PULM: No dyspnea, unexplained cough. GI: No dysphagia/odynophagia, problematic reflux, constipation, diarrhea, changes in stool habits, hematochezia, melena. : No new urinary complaints, including dysuria, gross hematuria or pyuria. NEURO: No new balance problems, peripheral weakness/paresthesias or numbness of concern. Physical Exam BP 124/76 Pulse 67 Resp 16 Wt 59.9 kg (132 lb) LMP 12/12/2009 BMI 24.74 kg/m General appearance: Well appearing, alert, in no acute distress, well nourished. Skin: Skin color, texture, turgor normal, no suspicious rashes or lesions Head: Normocephalic, no masses, lesions, tenderness or abnormalities Eyes: Anicteric sclera. Pupils are equally round and reactive to light. Extraocular movements are intact. Lungs: Lungs clear to auscultation. No wheezing, rhonchi, rales Heart: RRR without murmur, gallop, or rubs. Knee exam: The right knee has normal range of movement, all maneuvers were normal including drawersand Estelita's. The left knee had a little bit compared to the right of effusion. Joint line was not tender or painful. All maneuvers were normal but there was some stiffness although the range of movement was normal. Scapular exam: The left side with the liver is Visit-there is significant tightness and tenderness. ASSESSMENT/PLAN: 1. Injury of left knee, initial encounter - ICD9: 959.7, ICD10: S89.92XA (primary diagnosis) - XR KNEE GENERAL 4V AP BOTH/PA BOTH/LAT/MERC LEFT - CONSULT TO ORTHOPAEDICS 2. Knee effusion, left - ICD9: 719.06, ICD10: M25.462 - CONSULT TO ORTHOPAEDICS 3. Strain of left levator scapulae muscle, subsequent encounter - ICD9: V58.89, 840.8, ICD10: S46.812D - CONSULT TO PHYSICAL THERAPY 4. Cervicalgia - ICD9: 723.1, ICD10: M54.2 - CONSULT TO PHYSICAL THERAPY Micah High MD documented in this encounterMarietta [facility]09-11-2024 NoteHNO ID: [id number] Author: LIZA PATRICIO PT Service: ? Author Type: Physical Therapist Type: Progress Notes Filed: 11/16/2023 10:49 Note Text: Episode Visit Count: 1 Therapist That Will Accept/Oversee The Plan Of Care: Alonso Patricio Start of Care Date: 11/10/23 Onset Date: 11/09/20 Plan of Care Certification Date: 11/10/23 Next Certification Due Date: 12/10/23 Patient Identified by Name and Date of : Yes REHABILITATION AND SPORTS THERAPY PHYSICAL THERAPY EVALUATION PLAN OF CARE: Assessment: Jaz Dukes presents with chief complaint of MARINE that interferes with bladder function . She presents with impairments in independence in exercise, overall function, strength, and symptom management. PROMIS? (Patient-Reported Outcomes Measurement Information System) scores were reviewed and identified as within normal limits. Prognosis for therapy is Excellent due to: current objective clinical presentation, good overall health status . She will benefit from skilled therapy services to meet the goals established for this plan of care as noted below. Goals for Episode of Care: established 11/10/23 Patient demonstrates independence and compliance with home exercise program. Patient to increase strength of pelvic floor to Power 5/5, Endurance 10/10, and Repetitions 10/10 in order to improve bladder/bowel control. Patient to correctly isolate pelvic floor muscles without compensatory patterns of breath holding, adductor use, gluteal use, and abdominal use to improve bladder/bowel control. Patient reports decreased frequency of urine/stool leakage to 0 times per day to demonstrate improved bladder/bowel control and increase confidence in community/social settings. Patient reports 100% less bladder/bowel leaks with external trigger to avoid incontinent episodes. Patient reports 100% improvement in bladder/bowel leaks while coughing/sneezing compared to evaluation in order to increase bladder and bowel function in activities of daily living. Patient can perform all activities of daily living, work, and recreational activities with 100 % bladder/bowel continence. Patient Goals: normal bladder function Time Frame for Goals and Treatment : 02/09/24 Planned Interventions, Frequency, and Duration: Current Frequency: 1x/week Duration: 12 weeks Total Number of Visits Planned: 12 Planned Treatment Interventions: Therapeutic exercise (13470), Neuromuscular re-education (92758), Manual therapy (34824), Therapeutic activities (89099), Self-residential management (70914), Biofeedback Pelvic ([id number],70330) PLAN FOR NEXT VISIT: review education on knack technique and kegels; trial PFMT using biofeedback Patient demonstrates good understanding of plan of care and treatment. The above goals and plan of care were discussed and agreed upon by patient/family. SUBJECTIVE: Pt states that she has experienced urinary leakage for the past 3 years and has now brought up concerns with OBGYN. Pt now referred to PT to address MARINE with no prior treatment. Pt descriebs symtpoms as stress incontinence, typically with urine leaking when coughing/sneezing. Patient Goals: normal bladder function Functional Limitations: bladder function Prior Level of Function: Independent without limitations Relevant History Past Relevant Medical Conditions: Comments, Cancer Relevant Medical Conditions Comments: low back pain (previously in PT at [place]) Past Relevant Surgical Conditions: Comments Relevant Surgical Conditions Comments: previous skin CA removed Intake Information: Prescription present Pain: Pain Pain Level: 0 Pain Location: Low Back/Lumbar Spine- Midline Post Treatment Pain Post Treatment Pain Level: 0 PROMIS Scales 11/08/2023 09/01/2020 07/29/2020 Higher is Better Phys Func - Score 54 (within normal limits) 49 (within normal limits) 51 (within normal limits) Phys Func - Percentile 66 46 54 Self-Eff Symptom - Score 42 (Average) 55 (Average) 41 (Average) Self-Eff Symptom - Percentile 21 69 18 T-scores: mean of general population = 50. 5 points is clinically meaningfully difference Percentiles provide an indication of how the patient's score ranks in relation to the general population. Higher percentile rankings indicate better function/quality of life. 50th percentile is the average of the general population and indicates half of respondents had a worse score. OBJECTIVE MEASURES WITH LEVEL OF FUNCTION: Pelvic Floor Pregnancies: 2 Births: 2 Vaginal Delivery: Standard (pt denies any changes in urinary/bladder function related to pregancy, labor, delivery, or postpardum) History of low back pain: Yes Urinary/Bowel History : Urinary History, Bowel History Difficulty starting stream: No slow or intermittent stream: No strains to void: No Incomplete emptying: Sometimes Spraying: No Diversion of stream: No Hesitancy: No Stress Incontinence: Cough, Laughing, Sne (more content not included)...[facility]09-11-2024 History of Present illness Narrative* Liza Patricio, PT - 11/16/2023 10:46 AM EDT Episode Visit Count: 1 Therapist That Will Accept/Oversee The Plan Of Care: Alonso Patricio Start of Care Date: 11/10/23 Onset Date: 11/09/20 Plan of Care Certification Date: 11/10/23 Next Certification Due Date: 12/10/23 Patient Identified by Name and Date of : Yes REHABILITATION AND SPORTS THERAPY PHYSICAL THERAPY EVALUATION PLAN OF CARE: Assessment: Jaz Dukes presents with chief complaint of MARINE that interferes with bladder function . She presents with impairments in independence in exercise, overall function, strength, and symptom management. PROMIS (Patient-Reported Outcomes Measurement Information System) scores were reviewed and identified as within normal limits. Prognosis for therapy is Excellent due to: current objective clinical presentation, good overall health status . She will benefit from skilled therapy services to meet the goals established for this plan of care as noted below. Goals for Episode of Care: established 11/10/23 Patient demonstrates independence and compliance with home exercise program. Patient to increase strength of pelvic floor to Power 5/5, Endurance 10/10, and Repetitions 10/10 in order to improve bladder/bowel control. Patient to correctly isolate pelvic floor muscles without compensatory patterns of breath holding, adductor use, gluteal use, and abdominal use to improve bladder/bowel control. Patient reports decreased frequency of urine/stool leakage to 0 times per day to demonstrate improved bladder/bowel control and increase confidence in community/social settings. Patient reports 100% less bladder/bowel leaks with external trigger to avoid incontinent episodes. Patient reports 100% improvement in bladder/bowel leaks while coughing/sneezing compared to evaluation in order to increase bladder and bowel function in activities of daily living. Patient can perform all activities of daily living, work, and recreational activities with 100 % bladder/bowel continence. Patient Goals: normal bladder function Time Frame for Goals and Treatment : 02/09/24 Planned Interventions, Frequency, and Duration: Current Frequency: 1x/week Duration: 12 weeks Total Number of Visits Planned: 12 Planned Treatment Interventions: Therapeutic exercise (41726), Neuromuscular re- education (71978), Manual therapy (03339), Therapeutic activities (14898), Self- residential management (79803), Biofeedback Pelvic ([id number]) PLAN FOR NEXT VISIT: review education on knack technique and kegels; trial PFMT using biofeedback Patient demonstrates good understanding of plan of care and treatment. The above goals and plan of care were discussed and agreed upon by patient/family. SUBJECTIVE: Pt states that she has experienced urinary leakage for the past 3 years and has now brought up concerns with OBGYN. Pt now referred to PT to address MARINE with no prior treatment. Pt descriebs symtpomsas stress incontinence, typically with urine leaking when coughing/sneezing. Patient Goals: normal bladder function Functional Limitations: bladder function Prior Level of Function: Independent without limitations Relevant History Past Relevant Medical Conditions: Comments, Cancer Relevant Medical Conditions Comments: low back pain (previously in PT at [place]) Past Relevant Surgical Conditions: Comments Relevant Surgical Conditions Comments: previous skin CA removed Intake Information: Prescription present Pain: Pain Pain Level: 0 Pain Location: Low Back/Lumbar Spine- Midline Post Treatment Pain Post Treatment Pain Level: 0 PROMIS Scales 11/08/2023 09/01/2020 07/29/2020 Higher is Better Phys Func - Score 54 (within normal limits) 49 (within normal limits) 51 (within normal limits) Phys Func - Percentile 66 46 54 Self-Eff Symptom - Score 42 (Average) 55 (Average) 41 (Average) Self-Eff Symptom - Percentile 21 69 18 T-scores: mean of general population = 50. 5 points is clinically meaningfully difference Percentiles provide an indication of how the patient's score ranks in relation to the general population. Higher percentile rankings indicate better function/quality of life. 50th percentile is the average of the general population and indicates half of respondents had a worse score. OBJECTIVE MEASURES WITH LEVEL OF FUNCTION: Pelvic Floor Pregnancies: 2 Births: 2 Vaginal Delivery: Standard (pt denies any changes in urinary/bladder function related to pregancy, labor, delivery, or postpardum) History of low back pain: Yes Urinary/Bowel History : Urinary History, Bowel History Difficulty starting stream: No slow or intermittent stream: No strains to void: No Incomplete emptying: Sometimes Spraying: No Diversion of stream: No Hesitancy: No Stress Incontinence: Cough, Laughing, Sneeze Post Void Dribble: No Urgency: Sometimes (often) Frequency of Urgency Episodes: often Frequency of Leaks Secondary to Urge: sometimes Urinary Incontinence: 1-2 x daily (quanity of leakage depends noting variability but tends to be more dribble versus full bladder emptying) Nocturia (times per night) : no leakage while sleeping, but sometimes voids in night Daytime Frequency (hours): depends, but sounds typical/WNL Bladder Padding: none Fluid Intake: Coffee, Water, Alcohol Water : mostly Coffee: 2 cups in morning Alcohol : some wine Enuresis: No Daytime Voiding Interval: unsure Perception of need to urinate: Yes Fecal incontinence: No (occasional diarrhea with rare fecal incontinence) Pelvic Floor Muscle Assessment Consent for pelvic assessment/testing and treatment: Patient was educated regarding pelvic floor physical therapy assessment/treatment which may include pelvic floor and girdle muscle assessment externally or internally (vaginal or rectal approach)., Patient verbalized consent for the above treatment approaches today. Patient understands they have control of the treatment and an opportunity to stop treatment at any time. Appearance: General Observations General Observations: WNL Pelvic Floor Muscle Assessment: PERFECT Power: 4- Endurance: 5 Reps: 3 LE Strength Trunk Strength: 23 R Hip Flexion (L2): 4+/5 R Hip ABduction: 4+/5 R Hip ADduction: 4/5 R Knee Extension (L3): 4/5 L Hip Flexion (L2): 4+/5 L Hip ABduction: 4+/5 L Hip ADduction: 4/5 L Knee Extension (L3): 4/5 Education: Education Learning Preferences: Explanation, Demonstration Barriers: None Learning/educational needs: Plan of Care, Changes in Plan of Care Education Provided: Yes, see treatment interventions for education provided Education Provided To: Patient Education Mode/Type: Demonstration, Explanation/Discussion, Literature/Printed Materials Response to Education/Teach Back: States/Identifies TREATMENT: PT Treatment Interventions: Self-Group Home Management Evaluation Evaluation Self-Group Home Management: 1: KATY Cisneros handout with education on squeeze before you sneeze concept for MARINE 2: KATY Aguirre handout with education on causes of incontinence, cues for activation, and general instruction on PF muscle contract/relax Skilled Intervention: Skilled judgment in the selection of proper modification for activity of daily living/home management based on clinical presentation, deficits, and needs. Provided written instruction for activities of daily living techniques to facilitate proper performance and compliance. Reviewed patient specific diagnosis in relation to activities of daily living/home management. Billing * Evaluation Low Complexity: 1 Unit Self-Care/Home Management Treatment Minutes: 10 Skilled Treatment Time Minutes (timed and untimed codes): 40 Total Session Time (minutes): 40 Session Start Time : 1040 Session Stop Time : 1120 Liza Patricio PT documented in this encounterMarietta [facility]08-12-2024 Note* Letter - Coordinator, [facility] - 10/17/2023 4:34 PM EDT October 17, 2023 PID: [id number] Jaz Dukes [address] [place] [address] Dear Ms. Dukes, We are pleased to inform you that the results of your recent breast imaging exam on 10/17/2023 are normal. Breast tissue can be either dense or not dense. Dense tissue makes it harder to find breast cancer on a mammogram and also raises the risk of developing breast cancer. Your breast tissue is not dense. Talk to your healthcare provider about breast density, risks for breast cancer, and your individual situation. Early detection of cancer is very important. We also understand recommendations regarding breast cancer screening are controversial. Please discuss with your primary care provider which strategy is best for you and whether a mammogram is right for you. Your imaging studies and report will be kept on file at [facility] as part of your permanent medical record and are available for your continuing care. Thank you for allowing us to help in meeting your health care needs. Sincerely, Dr. Bullock Interpreting Radiologist [facility] (Normal over 40) [facility]08-12-2024 Miscellaneous Notes* Letter - Coordinator, Mammography - 10/17/2023 4:34 PM EDT October 17, 2023 PID: [id number] Jaz Dukes [address] [place] [address] Dear Ms. Dukes, We are pleased to inform you that the results of your recent breast imaging exam on 10/17/2023 are normal. Breast tissue can be either dense or not dense. Dense tissue makes it harder to find breast cancer on a mammogram and also raises the risk of developing breast cancer. Your breast tissue is not dense. Talk to your healthcare provider about breast density, risks for breast cancer, and your individual situation. Early detection of cancer is very important. We also understand recommendations regarding breast cancer screening are controversial. Please discuss with your primary care provider which strategy is best for you and whether a mammogram is right for you. Your imaging studies and report will be kept on file at [facility] as part of your permanent medical record and are available for your continuing care. Thank you for allowing us to help in meeting your health care needs. Sincerely, Dr. Bullock Interpreting Radiologist [facility] (Normal over 40) documented in this encounterMarietta [facility]08-12-2024 History of Present illness Narrative* Ronda Arriaga Mammo Tech - 10/17/2023 11:30 AM EDT Radiology Service Progress Note PATIENT NAME: Jaz Dukes DATE OF SERVICE: October 17, 2023 TIME: 12:35 PM PATIENT IDENTITY VERIFICATION COMPLETED USING TWO (2) IDENTIFIERS: Name and Date of confirmedby patient verbally. FALL SCREENING: Has the patient had 2 falls in the last year or 1 fall with injury or currently using an Ambulatory Assistive Device (Walker, Cane, Wheelchair, Crutches, etc.)? No PATIENT GENDER DATA: Female. status: : No status: NO. PATIENT RELEVANT IMPLANT DATA REVIEWED: Not Applicable PATIENT PRESENTS WITH AN IMPLANTABLE OR ATTACHED GREEN HIDE INSPECTOR: No RADIOLOGY DEPARTMENT: Mammography PERIPHERAL IV DATA: Not applicable SIGNED BY: Afua Blakely October 17, 2023 12:35 PM documented in this encounterMari[facility]07-22-2024 History of Present illness Narrative* Ryann Adan APRN.DIE TECHNICIAN - 09/26/2023 11:30 AM EDT Images from the original note were not included. [facility] Follow up/ Established patient visit Date of last visit : 03/09/23 The following Impression/Plan was copied and pasted from the patient's last [facility] visit on 03/09/23: ASSESSMENT/PLAN: 1. RLS (restless legs syndrome) - ICD9: 333.94, ICD10: G25.81 (primary diagnosis) Overall doing better than in the past, and was well controlled while taking magnesium oxide 400mg at bedtime. However, ran out as above. Never reached the point of needing gabapentin. Will restart magnesium oxide. In addition, while Ferritin level was within normal range, it was low in regards to RLS, and thus recommending patient take FeSO4 325mg twice daily with meals; if cannot tolerate then reduce to 1 tab daily. SE and ADRs reviewed with pt. 2. Snoring - ICD9: 786.09, ICD10: R06.83 As in past, encouraged patient to sleep on side. D/w pt possible oral airway appliance, but pt would prefer positional therapy. 3. Family history of dementia - ICD9: V17.2, ICD10: Z81.8 No cognitive deficits noted on exam today. Eyal Guerrier MD Here for follow up for RLS/PLMD Occas has sxs in the evening if she sits too long, then she has to get up and walk around. She always gets up during commercials. PLMs in her sleep have calmed down. Hasn't stubbed her toes on her her recently in her sleep. He hasn't commented lately on her legs moving a lot. Taking magnesium, no adverse effects. Stopped iron, caused diarrhea. Snoring--treating with sleeping on side. No VELIA on HSAT or PSG, both showed normal AHI in non-supine sleep. Gets sleepy during the day, sometimes naps, asks if that's ok PDMP website checked and validated. All prescriptions have been APPROPRIATELY filled. No suspiciousactivity was identified. 09/26/2023 by Ryann Adan APRN.DIE TECHNICIAN SLEEP HYGIENE QUESTIONS: Bedtime : 10 pm to MN Wake up Time : 6 am to walk dogs Time it takes to fall sleep : 15 min to 2 hrs depending on whether she is anxious/can't shut off brain Number of times patient wakes up per night : 1, usually can fall back asleep quickly Reason (s) why patient wakes up during the night : unknown Estimated total sleep time ( in a 24 hour period of time) : 6 Naps : Yes sometimes Patient Questionnaires Sleep Scores 09/26/2023 Sleep Questions Reason for visit: Excessive daytime sleepiness On average, hours of sleep in 24 hours: 6 Accidents or near accidents due to drowsy drivin 09/26/2023 [place] Sleepiness Scale Score 12 (Excessive daytime sleepiness present) 09/26/2023 PROMIS CAT Sleep Disturbance PROMIS Sleep Disturbance T-Score 53 (within normal limits) PROMIS Sleep Disturbance Percentile 38 06/14/2022 Insomnia Severity Index Score 20 09/26/2023 Restless Leg Syndrome Score 22 (Severe symptoms) 09/26/2023 PHQ-9 Score 11 02/08/2023 PROMIS Global Health - (T-Scores - the mean of general population = 50. Five points is a clinicallymeaningful difference.) Physical T-Score 47.7 Mental T-Score 56 ALLERGIES Allergen Reactions Allergen Ext-Venom-* Mold Propolis (Bee Glue) CURRENT MEDICATIONS: minoxidil (LONITEN) 2.5 mg tablet take 1/4 OF a tablet EVERY DAY finasteride (PROPECIA) 1 mg tablet Take 1 tablet by mouth every afternoon. doxycycline hyclate (VIBRAMYCIN) 100 mg capsule Take 100 mg by mouth. LORazepam (ATIVAN) 0.5 mg Take by mouth three times a day as needed. estradiol (ESTRACE) 0.01 % (0.1 mg/gram) vaginal cream Use 1g vaginally 2 times per week. EPINEPHrine (EPIPEN) 0.3 mg/0.3 mL auto-injector Inject 0.3 mL intramuscularly as directed. use as directed for allergic reaction. Seek emergent medical immediately after use. tacrolimus (PROTOPIC) 0.1 % ointment Apply to affected area two times a day. triamcinolone acetonide (KENALOG) 0.1 % cream Apply 1 application to affected area two times a day.Apply to affected area. Location: back lisinopril (ZESTRIL) 5 mg tablet Take 1 tablet by mouth once daily. sertraline (ZOLOFT) 100 mg tablet take 1 tablet daily ezetimibe (ZETIA) 10 mg tablet take 1 tablet daily sodium chloride (SALINE NASAL) 0.65 % nasal spray Use 2-3 Sprays in the nose three times a day. fluticasone (FLONASE) 50 mcg/actuation nasal spray Use 2 Sprays in each nostril once daily. Rinse mouth after use. benzonatate (TESSALON PERLE) 100 mg capsule Take 2 capsules by mouth three times a day as needed. (Patient not taking: Reported on 09/23/2023) magnesium oxide (MAG-OX) 400 mg (241.3 mg magnesium) tablet Take 1 tablet by mouth daily at bedtime. (Patient not taking: Reported on 09/23/2023) ferrous sulfate 325 mg (65 mg iron) tablet Take 1 tablet by mouth two times a day. (take with meals) fluticasone (FLONASE) 50 mcg/actuation nasal spray Use 2 Sprays in each nostril once daily. Rinse mouth after use. (Patient not taking: Reported on 09/23/2023) PHYSICAL EXAMINATION: Vital Signs: BP 138/79 Pulse 68 Resp 16 Wt 60.3 kg (133 lb) LMP 12/12/2009 SpO2 99% BMI 24.93 kg/m PHYSICAL EXAM: General appearance: pleasant, NAD Mental status: alert and oriented, able to provide own history Constitutional: WNL Skin: No visible rashes on exposed skin Neuro: No focal deficits observed, no tremors IMPRESSION/PLAN: Rls (restless legs syndrome) (primary encounter diagnosis) Plmd (periodic limb movement disorder) Jaz Dukes is a delightful 68 year old female with PMH of RLS, PLMD, HTN, HLD, MDD, anxiety. RLS and PLMD are currently under good control. She walks daily (walks her son's and neighbor's dogs) which she finds helpful. She takes magnesium. She didn't tolerate iron supplement. If sxs flare then we can check labs--iron stores, vit D. Can follow up 6-12 mos, sooner if needed. Nonmedical therapy for restless legs syndrome includes : cold/warm compresses, warm/hot baths or showers, gentle massage, mild leg stretching at nighttime, or magnesium supplements ( 250- 1000 mg at nighttime daily). Mentally alerting activities help too. Note the caffeine, alcohol, nicotine, antidepressants, anti-nausea meds and antihistamines can cause or worsen symptoms. OK to nap if early afternoon and limit to 30 min Continue with side sleeping to keep AHI<5 Ryann Adan APRN.AJ documented in this encounterM[facility]2024 History of Present illness Narrative* Shar Enamorado MD - 09/23/2023 2:05 PM EDT Emilee is a 68 year old who presents for an annual gynecologic exam. Postmenopausal: Yes HRT use: No. 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 Hypertension Internal hemorrhoids without mention of complication Irregular menstrual cycle perimenopausal bleeding Snoring PAST SURGICAL HISTORY Procedure Laterality Date BIOPSY BREAST OPEN INCISIONAL 11/28/2000 left breast COLONOSCOPY FLX DX W/COLLJ SPEC WHEN PFRMD 05/17/2006 COLONOSCOPY FLX DX W/COLLJ SPEC WHEN PFRMD 06/16/2017 Colonoscopy COLPOSCOPY CERVIX UPPER/ADJACENT VAGINA 07/15/2000 Colposcopy CONIZATION CERVIX W/WO D&C RPR ELTRD EXC 08/03/2000 LEEP-Cervix LIG/TRNSXJ FLP TUBE ABDL/VAG APPR UNI/BI 05/27/1992 Tubal ligation, BPS OTHER MOHS- removal of squamous cells PAST SURGICAL HISTORY OF 1981 Broken Nose Repair PAST SURGICAL HISTORY OF 09/17/2004 EMB PAST SURGICAL HISTORY OF 09/2004 BONE DENSITTY SKIN BX, 1 LESION 12/15/2000 basal cell CA, on face SKIN EXCISION 12/23/2021 excision skin cyst lower back TONSILLECTOMY PRIMARY/SECONDARY <AGE 11 Tonsillectomy FAMILY HISTORY Problem Relation Age of Onset Diabetes Father non-insulin Cancer Father Bladder and Basil Cell Cancer Paternal Grandmother Ovarian age 45 Lipids Mother Hyperlipidemia,stroke Heart Mother 65 [place] Hypertension Mother Arthritis Mother Cancer Mother Skin cancer - unsure of cell type other (heartburn) Son other (Other) Other No breast/uterine/colon cancer other (melanoma) Daughter SOCIAL HISTORY Social History Tobacco Use Smoking status: Never Smokeless tobacco: Never Vaping Use Vaping Use: Never used Substance Use Topics Alcohol use: Yes Alcohol/week: 14.0 standard drinks of alcohol Types: 14 Glasses of Wine (5oz) per week Drug use: No REVIEW OF SYSTEMS Abdomen: No abdominal pain, nausea, vomiting, diarrhea, or constipation. No bloating, early satiety, indigestion, or increased flatulence. Bladder: No dysuria, gross hematuria, urinary frequency, urinary urgency/ positive MARINE Breast: No breast lumps, nipple d/c, overlying skin changes, redness or skin retraction Allergies and current medication updated:Yes EXAM: BP 116/72 Ht 5' 1.25 (1.56m) Wt 133 lb (60.3kg) LMP 12/12/2009 BMI 24.92 kg/(m^2). GENERAL: pleasant, female in no apparent distress BREAST: soft, non-tender, symmetric, no dominant mass, normal nipple-areolar complex, no lymphadenopathy, and no nipple discharge CHEST: Normal inspiratory effort ABDOMEN: soft, non-tender, and no masses PELVIC: external genitalia normal, no vulvar lesions, no cervical lesions, normal appearing perineal body and perianal region BIMANUAL: uterus normal size, shape and consistency, no adnexal masses, and non-tender RECTOVAGINAL: deferred. NEURO: alert and oriented x3,exam grossly non-focal EXTREMITIES: normal ASSESSMENT/PLAN: 1) Health maintenance: Pap/HPV screening no longer needed Mammogram ordered Nutrition, exercise and routine health maintenance exams reviewed. Colon cancer screening: up to date with screening BMD: ordered 2) Follow up one year or sooner as needed 3) Vaginal itching - suspect from atrophy. Rx estrace refilled. Vaginitis swab sent. 4) MARINE - consult to pelvic floor PT Shar Enamorado MD documented in this encounterM[facility]06-14-2024 History of Present illness Narrative* Josafat Reynolds APRN.DIE TECHNICIAN - 08/19/2023 12:34 PM EDT Subjective HPI HPI Jaz Dukes is a 68 year old female who presents today for CC of cough, congestion, st. This started 3 weeks ago. Has tried otc medication for relief. Symptoms are worsened by nothing. Riskfactors hx of pneumonia in past year. nonsmoker. .Patient presents with: Cough: Congestion sore throat x3 weeks PAST MEDICAL HISTORY Diagnosis Date Abnormal glandular Papanicolaou smear of cervix 04/23/2005 Abn. 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 Hypertension Internal hemorrhoids without mention of complication Irregular menstrual cycle perimenopausal bleeding Snoring PAST SURGICAL HISTORY Procedure Laterality Date BIOPSY BREAST OPEN INCISIONAL 11/28/2000 left breast COLONOSCOPY FLX DX W/COLLJ SPEC WHEN PFRMD 05/17/2006 COLONOSCOPY FLX DX W/COLLJ SPEC WHEN PFRMD 06/16/2017 Colonoscopy COLPOSCOPY CERVIX UPPER/ADJACENT VAGINA 07/15/2000 Colposcopy CONIZATION CERVIX W/WO D&C RPR ELTRD EXC 08/03/2000 LEEP-Cervix LIG/TRNSXJ FLP TUBE ABDL/VAG APPR UNI/BI 05/27/1992 Tubal ligation, BPS OTHER MOHS- removal of squamous cells PAST SURGICAL HISTORY OF 1981 Broken Nose Repair PAST SURGICAL HISTORY OF 09/17/2004 EMB PAST SURGICAL HISTORY OF 09/2004 BONE DENSITTY SKIN BX, 1 LESION 12/15/2000 basal cell CA, on face SKIN EXCISION 12/23/2021 excision skin cyst lower back TONSILLECTOMY PRIMARY/SECONDARY <AGE 11 Tonsillectomy ALLERGIES Allergen Ale-Itgdl-Wuych Bee, Mold, and Propolis (Bee Glue) MEDICATIONS EPINEPHrine (EPIPEN) 0.3 mg/0.3 mL auto-injector Inject 0.3 mL intramuscularly as directed. use as directed for allergic reaction. Seek emergent medical immediately after use. estradiol (ESTRACE) 0.01 % (0.1 mg/gram) vaginal cream Use 1g vaginally nightly for 2 weeks. Then decrease to 2 times per week ongoing. tacrolimus (PROTOPIC) 0.1 % ointment Apply to affected area two times a day. triamcinolone acetonide (KENALOG) 0.1 % cream Apply 1 application to affected area two times a day.Apply to affected area. Location: back lisinopril (ZESTRIL) 5 mg tablet Take 1 tablet by mouth once daily. sertraline (ZOLOFT) 100 mg tablet take 1 tablet daily ezetimibe (ZETIA) 10 mg tablet take 1 tablet daily magnesium oxide (MAG-OX) 400 mg (241.3 mg magnesium) tablet Take 1 tablet by mouth daily at bedtime. ferrous sulfate 325 mg (65 mg iron) tablet Take 1 tablet by mouth two times a day. (take with meals) sodium chloride (SALINE NASAL) 0.65 % nasal spray Use 2-3 Sprays in the nose three times a day. fluticasone (FLONASE) 50 mcg/actuation nasal spray Use 2 Sprays in each nostril once daily. Rinse mouth after use. fluticasone (FLONASE) 50 mcg/actuation nasal spray Use 2 Sprays in each nostril once daily. Rinse mouth after use. FAMILY HISTORY Problem Relation Age of Onset Diabetes Father non-insulin Cancer Father Bladder and Basil Cell Cancer Paternal Grandmother Ovarian age 45 Lipids Mother Hyperlipidemia,stroke Heart Mother 65 [place] Hypertension Mother Arthritis Mother Cancer Mother Skin cancer - unsure of cell type other (heartburn) Son other (Other) Other No breast/uterine/colon cancer other (melanoma) Daughter Social History Tobacco Use Smoking status: Never Smokeless tobacco: Never Vaping Use Vaping Use: Never used Substance Use Topics Alcohol use: Yes Alcohol/week: 14.0 standard drinks of alcohol Types: 14 Glasses of Wine (5oz) per week Drug use: No Review of Systems Constitutional: Negative for fever. HENT: Positive for congestion and sore throat. Negative for ear pain and nosebleeds. Respiratory: Positive for cough. Negative for shortness of breath and wheezing. Musculoskeletal: Negative for neck pain. Objective Blood pressure 122/72, pulse 72, temperature 36.8 C (98.2 F), resp. rate 16, weight 60.5 kg (133 lb6.1 oz), last menstrual period 12/12/2009, SpO2 98%. Physical Exam Constitutional: General: She is not in acute distress. Appearance: She is not toxic-appearing or diaphoretic. HENT: Head: Normocephalic and atraumatic. Nose: Nose normal. Mouth/Throat: Pharynx: Uvula midline. No pharyngeal swelling, oropharyngeal exudate, posterior oropharyngeal erythema or uvula swelling. Eyes: General: Lids are normal. No scleral icterus. Right eye: No discharge. Left eye: No discharge. Conjunctiva/sclera: Conjunctivae normal. Pupils: Pupils are equal, round, and reactive to light. Neck: Trachea: Trachea normal. Cardiovascular: Rate and Rhythm: Normal rate and regular rhythm. Heart sounds: Normal heart sounds. Pulmonary: Effort: Pulmonary effort is normal. Breath sounds: Normal breath sounds. Musculoskeletal: Cervical back: Normal range of motion and neck supple. Lymphadenopathy: Cervical: No cervical adenopathy. Right cervical: No superficial cervical adenopathy. Left cervical: No superficial cervical adenopathy. Skin: Findings: No rash. Neurological: Mental Status: She is alert and oriented to person, place, and time. ASSESSMENT/PLAN: 1. Subacute cough - ICD9: 786.2, ICD10: R05.2 (primary diagnosis) Suspect post viral cough -use medication as prescribed -follow up if symptoms persist, worsen, change - XR CHEST 2V FRONTAL/LAT IMPRESSION: No acute radiographic abnormality. Dictated by : ABIMBOLA QUIROZ DO - PREDNISONE 20 MG TABLET - BENZONATATE 100 MG CAPSULE 2. Sore throat - ICD9: 462, ICD10: J02.9 Negative, - STREP A MOLECULAR (POC) Josafat Reynolds APRN.DIE TECHNICIAN documented in this encounterM[facility]06-14-2024 History of Present illness Narrative* Adrienne Hess RT(R) - 08/19/2023 12:30 PM EDT Radiology Service Progress Note PATIENT NAME: Jaz Dukes DATE OF SERVICE: August 19, 2023 TIME: 12:23 PM PATIENT IDENTITY VERIFICATION COMPLETED USING TWO (2) IDENTIFIERS: Name and Date of confirmedby patient verbally. FALL SCREENING: Has the patient had 2 falls in the last year or 1 fall with injury or currently using an Ambulatory Assistive Device (Walker, Cane, Wheelchair, Crutches, etc.)? No PATIENT GENDER DATA: Female. status: : No status: NO. PATIENT RELEVANT IMPLANT DATA REVIEWED: Yes PATIENT PRESENTS WITH AN IMPLANTABLE OR ATTACHED GREEN HIDE INSPECTOR: No RADIOLOGY DEPARTMENT: General X-ray: Exam(s) Completed: Chest X-Ray PERIPHERAL IV DATA: Not applicable SIGNED BY: RT Jose(Monica) August 19, 2023 12:23 PM documented in this encounterMarietta [facility]05-20-2024 History of Present illness Narrative* aLdi Almanza APRN.CNP - 07/25/2023 9:45 AM EDT CC: Patient presents with: F/U 6 months HPI Jaz Dukes is a 68 year old female who presents today for routine follow up. HTN and HLD: Ms. Dukes indicates that she is feeling well and denies any symptoms referable to elevated blood pressure. Specifically denies headache, chest pain, palpitations, dyspnea, and peripheral edema. Patient denies any side effects of her medication(s) and is compliant with their regimen. She does not check BP's generally. Jaz works out regularly 7 times per week with walking. She watches her diet for sodium, low fat and low cholesterol most of the time. Last 3 Encounter BP Readings: Date: BP: 07/25/2023 114/60 04/26/2023 114/76 04/03/2023 112/73 Anxiety: Feels well controlled at this time. Sleep: is described as normal Alcohol use: drinks less than one drink a day Drug use: No Appetite: good Suicidal Thoughts: No suicidal or homicidal ideation, intent or plan REVIEW OF SYSTEMS See HPI PAST MEDICAL HISTORY Diagnosis Date Abnormal glandular Papanicolaou smear of cervix 04/23/2005 Abn. 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 Hypertension Internal hemorrhoids without mention of complication Irregular menstrual cycle perimenopausal bleeding Snoring PAST SURGICAL HISTORY Procedure Laterality Date BIOPSY BREAST OPEN INCISIONAL 11/28/2000 left breast COLONOSCOPY FLX DX W/COLLJ SPEC WHEN PFRMD 05/17/2006 COLONOSCOPY FLX DX W/COLLJ SPEC WHEN PFRMD 06/16/2017 Colonoscopy COLPOSCOPY CERVIX UPPER/ADJACENT VAGINA 07/15/2000 Colposcopy CONIZATION CERVIX W/WO D&C RPR ELTRD EXC 08/03/2000 LEEP-Cervix LIG/TRNSXJ FLP TUBE ABDL/VAG APPR UNI/BI 05/27/1992 Tubal ligation, BPS OTHER MOHS- removal of squamous cells PAST SURGICAL HISTORY OF 1981 Broken Nose Repair PAST SURGICAL HISTORY OF 09/17/2004 EMB PAST SURGICAL HISTORY OF 09/2004 BONE DENSITTY SKIN BX, 1 LESION 12/15/2000 basal cell CA, on face SKIN EXCISION 12/23/2021 excision skin cyst lower back TONSILLECTOMY PRIMARY/SECONDARY <AGE 11 Tonsillectomy ALLERGIES Allergen Njj-Abzhp-Uqvvz Bee, Mold, and Propolis (Bee Glue) MEDICATIONS lisinopril (ZESTRIL) 5 mg tablet Take 1 tablet by mouth once daily. sertraline (ZOLOFT) 100 mg tablet take 1 tablet daily ezetimibe (ZETIA) 10 mg tablet take 1 tablet daily magnesium oxide (MAG-OX) 400 mg (241.3 mg magnesium) tablet Take 1 tablet by mouth daily at bedtime. ferrous sulfate 325 mg (65 mg iron) tablet Take 1 tablet by mouth two times a day. (take with meals) sodium chloride (SALINE NASAL) 0.65 % nasal spray Use 2-3 Sprays in the nose three times a day. fluticasone (FLONASE) 50 mcg/actuation nasal spray Use 2 Sprays in each nostril once daily. Rinse mouth after use. estradiol (ESTRACE) 0.01 % (0.1 mg/gram) vaginal cream Use 1g vaginally nightly for 2 weeks. Then decrease to 2 times per week ongoing. fluticasone (FLONASE) 50 mcg/actuation nasal spray Use 2 Sprays in each nostril once daily. Rinse mouth after use. EPINEPHrine (EPIPEN) 0.3 mg/0.3 mL auto-injector Inject 0.3 mL intramuscularly as directed. use as directed for allergic reaction. Seek emergent medical immediately after use. (Patient taking differently: Inject 0.3 mg intramuscularly as directed. use as directed for allergic reaction. Seek emergent medical immediately after use.) FAMILY HISTORY Problem Relation Age of Onset Diabetes Father non-insulin Cancer Father Bladder and Basil Cell Cancer Paternal Grandmother Ovarian age 45 Lipids Mother Hyperlipidemia,stroke Heart Mother 65 [place] Hypertension Mother Arthritis Mother Cancer Mother Skin cancer - unsure of cell type other (heartburn) Son other (Other) Other No breast/uterine/colon cancer other (melanoma) Daughter Social History Tobacco Use Smoking status: Never Smokeless tobacco: Never Vaping Use Vaping Use: Never used Substance Use Topics Alcohol use: Yes Alcohol/week: 14.0 standard drinks of alcohol Types: 14 Glasses of Wine (5oz) per week Drug use: No PHYSICAL EXAM BP 114/60 (BP Site: Left Arm, BP Position: Sitting, BP Cuff Size: Regular Adult) Pulse 66 Resp 12 Ht 157.5 cm (5' 2) Wt 59.9 kg (132 lb) LMP 12/12/2009 SpO2 99% BMI 24.14 kg/m General Appearance: well appearing, in no acute distress, alert Pysch: mood and affect broad and appropriate Eyes: conjunctiva pink and moist, no icterus, sclera white, non-injected Lungs: Lungs clear to auscultation. No wheezing, rhonchi, rales. Heart: RRR without murmur, gallop, or rubs. No ectopy Health maintenance reviewed with patient: Advance Directive Discussion due on 03/07/2023 Covid-19 Vaccine( season) due on 04/24/2023 Mammogram Screening due on 10/12/2023 Annual PCP Team Chronic Disease Visit due on 04/26/2024 BP Controlled (<130/80) due on 04/26/2024 Diabetes Screening due on 04/26/2026 Colorectal Cancer Screening due on 06/17/2027 Lipid Screening due on 07/22/2028 DTaP,Tdap,Td Vaccine(3 - Td or Tdap) due on 02/24/2030 Bone Density Screening Completed Influenza Vaccine Completed RSV Vaccine Completed Hepatitis C Screening Completed Shingrix Vaccine Completed Pneumococcal Vaccine: 65+ Completed Pap Testing Discontinued DATA REVIEWED: Most recent labs ASSESSMENT/PLAN: 1. Essential hypertension - ICD9: 401.9, ICD10: I10 (primary diagnosis) - Controlled - Continue current medications - Recommend home blood pressure monitoring, to bring results to next visit - Encouraged sodium restriction, DASH or Mediterranean diet - Recommend regular aerobic exercise 2. Mixed hyperlipidemia - ICD9: 272.2, ICD10: E78.2 - Controlled - Continue current medications - Counseled on healthy diet and regular exercise - Discussed need for and benefit of weight loss. BMI 24.14 kg/(m^2) 3. Anxiety - ICD9: 300.00, ICD10: F41.9 Controlled with current treatment - Reviewed concept of neurochemical imbalance wth depression/anxiety, treatment options and benefits of counseling in combination with medication. Also reviewed benefits of sleep hygeine, diet and exercise - Instructed patient to contact office or [id number] after-hours promptly should condition worsen or any new symptoms appear. - [facility] [facility] and after hours crisis line 4. Mild episode of recurrent major depressive disorder (HCC) - ICD9: 296.31, ICD10: F33.0 As above 5. H/O bee sting allergy - ICD9: V15.06, ICD10: Z91.030 - EPINEPHRINE 0.3 MG/0.3 ML INJECTION, AUTO-INJECTOR Prescription instructions reviewed with patient as applicable. Potential red flag symptoms discussed with the patient. Reviewed appropriate action plan to take if red flag symptoms occur. Patient agreeable to treatment plan. Ladi Almanza APRN.AJ documented in this encounterM[facility]-15-[facility]24 Miscellaneous Notes* Telephone Encounter - Sasha Montez RN - 06/20/2023 11:56 AM EDT Patient phones for refill(s): Requested Prescriptions Pending Prescriptions Disp Refills lisinopril (ZESTRIL) 5 mg tablet 90 tablet 3 Sig: Take 1 tablet by mouth once daily. Date of last office visit in primary care: 04/26/2023 Date of next office visit in primary care: 07/25/2023 Sasha Montez RN. documented in this encounterMarietta [facility]02-20-2024 History of Present illness Narrative* Adrienne Hess RT(R) - 04/26/2023 12:10 PM EST Radiology Service Progress Note PATIENT NAME: Jaz Dukes DATE OF SERVICE: April 26, 2023 TIME: 12:30 PM PATIENT IDENTITY VERIFICATION COMPLETED USING TWO (2) IDENTIFIERS: Name and Date of confirmedby patient verbally. FALL SCREENING: Has the patient had 2 falls in the last year or 1 fall with injury or currently using an Ambulatory Assistive Device (Walker, Cane, Wheelchair, Crutches, etc.)? No PATIENT GENDER DATA: Female. status: : No status: NO. PATIENT RELEVANT IMPLANT DATA REVIEWED: Yes PATIENT PRESENTS WITH AN IMPLANTABLE OR ATTACHED GREEN HIDE INSPECTOR: No RADIOLOGY DEPARTMENT: General X-ray: Exam(s) Completed: Chest X-Ray PERIPHERAL IV DATA: Not applicable SIGNED BY: RT Jose(R) April 26, 2023 12:30 PM documented in this encounterMarietta [facility]02-20-2024 History of Present illness Narrative* Nilda Walton, ODALIS.DIE TECHNICIAN - 04/26/2023 11:50 AM EST CC: Patient presents with: follow up with pneumonia , weak feeling past few days, stil HPI Jaz Dukes is a 67 year old female who presents today for above. She was seen in [facility] on 04/03 with a one week history of fever, sore throat, cough and SOB. Strep test was negative. Imaging not available, diagnosed with pneumonia by symptoms and treated with Doxycycline and prednisone. Today patient reports marginal improvement in symptoms. Her main concern today is the extreme fatigue she has been dealing with for the past month. Temperature elevation: No Chills: No Cough: Yes, mostly non-productive Shortness of breath: Yes, exertional Muscle aches: Yes Headache: Yes New loss of smell or taste: No Sore throat: Yes Nasal congestion: Yes Rhinorrhea: No Nausea and/or vomiting: No Diarrhea: No Other Associated symptoms: decreased appetite. PMH: non-contributory OTC meds/remedies that patient has tried: OTC cold medicine. Exposures: Sick contacts? No Family or close contacts with confirmed/probable COVID-19 in last 14 days? No Home COVID test: yes, negative Review of Systems Cardiovascular: Negative for chest pain, palpitations and leg swelling. Neurological: Positive for weakness. Negative for dizziness, syncope and light-headedness. Psychiatric/Behavioral: Negative for confusion. PAST MEDICAL HISTORY Diagnosis Date Abnormal glandular Papanicolaou smear of cervix 04/23/2005 Abn. 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 Hypertension Internal hemorrhoids without mention of complication Irregular menstrual cycle perimenopausal bleeding Snoring PAST SURGICAL HISTORY Procedure Laterality Date BIOPSY BREAST OPEN INCISIONAL 11/28/2000 left breast COLONOSCOPY FLX DX W/COLLJ SPEC WHEN PFRMD 05/17/2006 COLONOSCOPY FLX DX W/COLLJ SPEC WHEN PFRMD 06/16/2017 Colonoscopy COLPOSCOPY CERVIX UPPER/ADJACENT VAGINA 07/15/2000 Colposcopy CONIZATION CERVIX W/WO D&C RPR ELTRD EXC 08/03/2000 LEEP-Cervix LIG/TRNSXJ FLP TUBE ABDL/VAG APPR UNI/BI 05/27/1992 Tubal ligation, BPS OTHER MOHS- removal of squamous cells PAST SURGICAL HISTORY OF 1981 Broken Nose Repair PAST SURGICAL HISTORY OF 09/17/2004 EMB PAST SURGICAL HISTORY OF 09/2004 BONE DENSITTY SKIN BX, 1 LESION 12/15/2000 basal cell CA, on face SKIN EXCISION 12/23/2021 excision skin cyst lower back TONSILLECTOMY PRIMARY/SECONDARY <AGE 12 Tonsillectomy ALLERGIES Allergen Leu-Spenc-Egdlk Bee, Mold, and Propolis (Bee Glue) MEDICATIONS sertraline (ZOLOFT) 100 mg tablet take 1 tablet daily ezetimibe (ZETIA) 10 mg tablet take 1 tablet daily magnesium oxide (MAG-OX) 400 mg (241.3 mg magnesium) tablet Take 1 tablet by mouth daily at bedtime. ferrous sulfate 325 mg (65 mg iron) tablet Take 1 tablet by mouth two times a day. (take with meals) sodium chloride (SALINE NASAL) 0.65 % nasal spray Use 2-3 Sprays in the nose three times a day. fluticasone (FLONASE) 50 mcg/actuation nasal spray Use 2 Sprays in each nostril once daily. Rinse mouth after use. estradiol (ESTRACE) 0.01 % (0.1 mg/gram) vaginal cream Use 1g vaginally nightly for 2 weeks. Then decrease to 2 times per week ongoing. lisinopril (ZESTRIL, PRINIVIL) 5 mg tablet Take 1 tablet by mouth once daily. fluticasone (FLONASE) 50 mcg/actuation nasal spray Use 2 Sprays in each nostril once daily. Rinse mouth after use. EPINEPHrine (EPIPEN) 0.3 mg/0.3 mL auto-injector Inject 0.3 mL intramuscularly as directed. use as directed for allergic reaction. Seek emergent medical immediately after use. (Patient taking differently: Inject 0.3 mg intramuscularly as directed. use as directed for allergic reaction. Seek emergent medical immediately after use.) FAMILY HISTORY Problem Relation Age of Onset Diabetes Father non-insulin Cancer Father Bladder and Basil Cell Cancer Paternal Grandmother Ovarian age 45 Lipids Mother Hyperlipidemia,stroke Heart Mother 65 [place] Hypertension Mother Arthritis Mother Cancer Mother Skin cancer - unsure of cell type other (heartburn) Son other (Other) Other No breast/uterine/colon cancer other (melanoma) Daughter Social History Tobacco Use Smoking status: Never Smokeless tobacco: Never Vaping Use Vaping Use: Never used Substance Use Topics Alcohol use: Yes Alcohol/week: 14.0 standard drinks of alcohol Types: 14 Glasses of Wine (5oz) per week Drug use: No BP 114/76 Pulse 69 Temp 37.4 C (99.4 F) (Temporal) Resp 16 Wt 58.5 kg (129 lb) LMP 12/12/2009 SpO2 97% BMI 23.59 kg/m Physical Exam Vitals reviewed. Constitutional: General: She is not in acute distress. Appearance: She is ill-appearing. She is not toxic-appearing. HENT: Right Ear: Tympanic membrane normal. Left Ear: Tympanic membrane normal. Nose: Right Sinus: Maxillary sinus tenderness present. Left Sinus: Maxillary sinus tenderness present. Mouth/Throat: Lips: Felt. Mouth: Mucous membranes are moist. Pharynx: Oropharynx is clear. Eyes: Conjunctiva/sclera: Conjunctivae normal. Cardiovascular: Rate and Rhythm: Normal rate and regular rhythm. Heart sounds: Normal heart sounds. No murmur heard. Pulmonary: Effort: Pulmonary effort is normal. Breath sounds: Decreased breath sounds (bibasilar) present. No wheezing, rhonchi or rales. Musculoskeletal: Right lower leg: No edema. Left lower leg: No edema. Lymphadenopathy: Cervical: No cervical adenopathy. Skin: General: Skin is warm and dry. Neurological: Mental Status: She is alert. ASSESSMENT/PLAN: 1. Acute cough - ICD9: 786.2, ICD10: R05.1 (primary diagnosis) Persistent symptoms after treatment with Doxycycline for possible pneumonia Stat work-up with: - XR CHEST 2V FRONTAL/LAT - CBC - BASIC METABOLIC PNL Follow-up and further recommendations pending results 2. Shortness of breath - ICD9: 786.05, ICD10: R06.02 As above - XR CHEST 2V FRONTAL/LAT - CBC - BASIC METABOLIC PNL 3. Malaise - ICD9: 780.79, ICD10: R53.81 As above - MONOTEST, INFECTIOUS MONO 4. Sore throat - ICD9: 462, ICD10: J02.9 As above - MONOTEST, INFECTIOUS MONO Prescription instructions reviewed with patient as applicable. Potential red flag symptoms discussed with the patient. Reviewed appropriate action plan to take if red flag symptoms occur. Patient agreeable to treatment plan. Nilda Walton APRN.AJ documented in this encounterMarietta [facility]02-15-2024 Miscellaneous Notes* Telephone Encounter - Dee Dee Benoit LPN - 04/21/2023 10:49 AM EST Patient has been identified by name and date of : Yes Patient phones for refill(s): Requested Prescriptions Pending Prescriptions Disp Refills sertraline (ZOLOFT) 100 mg tablet [Pharmacy Med Name: SERTRALINE HCL TABS 100MG] 90 tablet 3 Sig: take 1 tablet daily Date of last office visit in primary care: 12/22/2022 Date of next office visit in primary care: 06/23/2023 Please advise. Thank you. Dee Dee Benoit LPN. documented in this encounterMarietta [facility]02-05-2024 Miscellaneous Notes* Telephone Encounter - ABEL Crawley Kim E - 04/11/2023 10:44 AM EST Patient has been identified by name and date of : No Patient phones for refill(s): Requested Prescriptions Pending Prescriptions Disp Refills ezetimibe (ZETIA) 10 mg tablet [Pharmacy Med Name: EZETIMIBE TABS 10MG] 90 tablet 3 Sig: take 1 tablet daily Date of last office visit in primary care: 12/22/2022 Date of next office visit in primary care: 06/23/2023 Please advise. Thank you. Helena Crawley LPN. documented in this encounterMarietta [facility]01-28-2024 History of Present illness Narrative* Rosa Nguyen APRN.CNP - 04/03/2023 8:57 AM EST This note was created using NoteWriter. Subjective Jaz Dukes is a 67 year old female. HPI she had a fever over a week ago, when lying down getting drainage and having trouble breathing. Review of Systems HENT: Positive for congestion and sore throat. Respiratory: Positive for cough (productive) and wheezing. Objective BP 112/73 Pulse 70 Temp 37 C (98.6 F) Resp 22 Wt 58.5 kg (129 lb) LMP 12/12/2009 SpO2 96% BMI 23.59 kg/m Physical Exam Constitutional: Appearance: She is ill-appearing. HENT: Head: Normocephalic. Nose: Congestion present. Cardiovascular: Rate and Rhythm: Normal rate. Pulmonary: Breath sounds: Wheezing present. Skin: General: Skin is warm. Assessment and Plan ASSESSMENT/PLAN: 1. Sore throat - ICD9: 462, ICD10: J02.9 (primary diagnosis) - Rapid Strep negative in the office today - Discussed supportive care treatment with fluids, rest and analgesia. - The patient should follow up in 3-5 days if symptoms persist or worsen - STREP A MOLECULAR (POC) 2. Bacterial pneumonia - ICD9: 482.9, ICD10: J15.9 Doxycycline BID x 5 days Prednisone x 4 days Rosa Nguyen APRN.CNP Medical Decision Making: Problems: Low: Acute, uncomplicated illness or injury Data: Unique test(s) ordered: 1 Risk: Moderate: Drug management Medical Decision Making Level: 3 - Low documented in this encounterMarietta [facility]01-09-2024 History of Present illness Narrative* Neeta Augustin RT(R) - 03/15/2023 3:50 PM EST Radiology Service Progress Note PATIENT NAME: Jaz Dukes DATE OF SERVICE: March 15, 2023 TIME: 3:47 PM PATIENT IDENTITY VERIFICATION COMPLETED USING TWO (2) IDENTIFIERS: Name and Date of confirmedby patient verbally. FALL SCREENING: Has the patient had 2 falls in the last year or 1 fall with injury or currently using an Ambulatory Assistive Device (Walker, Cane, Wheelchair, Crutches, etc.)? No PATIENT GENDER DATA: Female. status: : No status: NO. PATIENT RELEVANT IMPLANT DATA REVIEWED: Yes RADIOLOGY DEPARTMENT: General X-ray: Exam(s) Completed: Upper Extremity X- Ray(s): Shoulder, AP / TRUE AP / AXILLARY right PERIPHERAL IV DATA: Not applicable SIGNED BY: RT Magdiel(R) March 15, 2023 3:47 PM documented in this encounterMarietta [facility] Clinic12-05-2023 History of Present illness Narrative* Quiana Alvarez APRN.SILVERING APPLICATOR - 02/08/2023 10:00 AM EST Telemedicine Evaluation for COVID-19 Infection MyChart Zoom Video Visit was used for evaluation of this patient. I have communicated my name and active licensure. The patient's identity and physical location wereverified at the time of this visit. Either the patient or their legal customer contact representative has been informed of the risks and benefits of -- and alternatives to -- treatment through a remote evaluation andconsents to proceed with the evaluation remotely. SUBJECTIVE Jaz Dukes is a 67 year old female who presents with 1 day of symptoms that are worsening. She was with a sick family member on February 04, 2023 that was COVID negative at home and later wasfound to be COVID-positive. Jaz Dukes was Covid 19 positive at home last night. Positive test at home today. Symptoms include: Fever (?100.4F): Yes 100.4F or Chills: No Cough: Yes Shortness of breath: No or Difficulty breathing: No Fatigue: Yes Muscle aches: No Headache: Yes New loss of smell or taste: No Sore throat: Yes Nasal congestion: Yes or Rhinorrhea: Yes Nausea: No or Vomiting: No Diarrhea: No OTC meds/remedies that patient has tried: acetaminophen and OTC cold medicine. High risk category assessment Age > 60 years old Hypertension Exposures: Sick contacts? Yes Family or close contacts with confirmed/probable COVID-19 in last 14 days? Yes OBJECTIVE VIDEO EXAM Self-reported heart rate: 0 Self-reported pulse oximetry: 0 Self-reported blood pressure: 0 GENERAL: Alert, ill-appearing, no acute distress, minimal coughing HEENT: no conjunctival injection, pupils equal, moist mucous membranes, and no cervical adenopathy by self-palpation PULMONARY: breathing comfortably on room air , coughing, and no wheezing noted Creatinine Date Value Ref Range Status 11/09/2022 0.64 0.58 - 0.96 mg/dL Final 10/30/2021 0.60 0.58 - 0.96 mg/dL Final 02/16/2020 0.56 (L) 0.58 - 0.96 mg/dL Final 03/19/2019 0.62 0.58 - 0.96 mg/dL Final ASSESSMENT/PLAN (U07.1) COVID-19 virus infection (primary encounter diagnosis) - SALINE NASAL 0.65 % SPRAY AEROSOL - FLUTICASONE PROPIONATE 50 MCG/ACTUATION NASAL SPRAY,SUSPENSION - BENZONATATE 100 MG CAPSULE - NIRMATRELVIR 300 MG (150 MG X2)-RITONAVIR 100 MG TABLET,DOSE PACK Quiana Alvarez APRN.CNS - Discussed symptom monitoring and supportive care - Red flag symptoms requiring follow up discussed Nirmatrelvir/Ritonavir (Paxlovid) Considerations Paxlovid is FDA-approved for treatment of mild to moderate COVID-19 in adults who are at high risk for progression to severe COVID-19. Consider use of Paxlovid in the following examples of high risk patients (list is not all inclusive): Age over 65 years Cardiovascular and cerebrovascular disease Chronic disease state (kidney, liver, lung) Diabetes (type 1 or type 2) Immunocompromised state (cancer, solid organ or blood stem cell transplant, HIV) Obesity Paxlovid warnings include serious drug interactions (co-administration with drugs highly dependent on CYP3A for clearance), hypersensitivity reactions, hepatotoxicity, and risk of HIV-1 resistance development. This patient encounter involved the screening or treatment of novel coronavirus infection (COVID-19). Quiana Alvarez APRN.CNS February 08, 2023 10:22 AM 20 min in visit documented in this encounterMarietta [facility] Clinic12-05-2023 Instructions* Patient Instructions* Quiana Alvarez APRN.CNS - 02/08/2023 9:34 AM EST Images from the original note were not included. Beginning Home Isolation Isolation is used to separate people infected with SARS-CoV-2, the virus that causes COVID-19, frompeople who are not infected. People who are in isolation should stay home until it s safe for them to be around others. In the home, anyone sick or infected should separate themselves from others by staying in a specific sick room or area and using a separate bathroom (if available). Isolation or Quarantine: What's the difference? Quarantine keeps someone who might have been exposed to the virus away from others. Isolation keeps someone who is infected with the virus away from others, even in their home. Who needs to isolate People who have COVID-19 People who have symptoms of COVID-19 and are able to recover at home People who have no symptoms (are asymptomatic) but have tested positive for infection with SARS-CoV-2 Steps to take Stay home except to get medical care Monitor your symptoms. Stay in a separate room from other household members, if possible Use a separate bathroom, if possible Avoid contact with other members of the household and pets Don t share personal household items, like cups, towels, and utensils Wear a mask when around other people, if you are able to When to seek emergency medical attention Look for emergency warning signs* for COVID-19. If someone is showing any of these signs, seek emergency medical care immediately: Trouble breathing Persistent pain or pressure in the chest New confusion Inability to wake or stay awake Bluish lips or face *This list is not all possible symptoms. Please call your medical provider for any other symptoms that are severe or concerning to you. Call 911 or call ahead to your local emergency facility: Notify the bonded strand operator that you are seeking care for someone who has or may have COVID-19. Ending Home Isolation - When you can be around others after you had or likely had COVID-19 When you can be around others after you had or likely had COVID-19 If You Test Positive for COVID-19 (Isolation) Everyone, regardless of vaccination status: Stay home for 5 days. Note: Day 0 is your first day of symptoms or the date of collection of a positive viral test if no symptoms. Day 1 is the first full day after symptoms developed or test specimen was collected. If you have no symptoms or your symptoms are resolving after 5 days, you can leave your house. Continue to wear a mask around others for 5 additional days. If you have a fever, continue to stay home until your fever resolves, even if it is longer than 5 days. If You Were Exposed to Someone with COVID-19 (Quarantine) If you: 1. Have been boosted OR 2. Completed the primary series of Pfizer or Moderna vaccine within the last 6 months OR 3. Completed the primary series of J&J vaccine within the last 2 months THEN: 1. Wear a mask around others for 10 days. 2. Test on day 5, if possible. If you develop symptoms get a test and stay home. If You Were Exposed to Someone with COVID-19 (Quarantine) If you: 1. Completed the primary series of Pfizer or Moderna vaccine over 6 months ago and are not boosted OR 2. Completed the primary series of J&J over 2 months ago and are not boosted OR 3. Are unvaccinated THEN: 1. Stay home for 5 days. After that continue to wear a mask around others for 5 additional days. 2. If you can't quarantine you must wear a mask for 10 days. 3. Test on day 5 if possible. If you develop symptoms get a test and stay home. I had COVID-19 or I tested positive for COVID-19 and I have a weakened immune system If you have a weakened immune system (immunocompromised) due to a health condition or medication, you might need to stay home and isolate longer than 10 days. Talk to your healthcare provider for more information. Your doctor may work with an infectious disease expert at your local health department to determinewhen you can be around others. How to Manage Common Symptoms Associated with COVID for Adults Fever- Fever is a temperature over 100.4 F and can occur when the body is fighting an infection. Tohelp treat a fever: Drink plenty of fluids and stay well hydrated. Eat small amounts of easy to digest food. Rest. Your body needs rest to recover, but getting up and moving around the house frequently is a good idea. You should try to continue doing your normal daily activities (bathing, toileting, grooming, cooking), though you will probably feel tired, and need to rest often. Avoid any heavy activity or exercise, as this will increase your body temperature. Dress in light clothing and stay covered in a light sheet. Keep the room temperature cool. Take a slightly warm (not cold or cool) bath, or apply damp washcloths to the forehead and wrists. Cough- Cough is a common symptom associated with COVID and can be bothersome. To help treat a cough: Stay well hydrated. Try warm water or tea with lemon and/or honey to help soothe the cough. Use a humidifier to add moisture to the air. Try a product with menthol, like a cough drop or a rub for your chest such as Vicks, which can helpreduce cough. Try cough drops. Avoid smoking and other strong odors or perfumes. Try breathing exercises to keep your lungs open and clear. Take a big deep breath through your noseand hold for 5 seconds before slowly releasing. Repeat frequently, while you are awake. Congestion- Runny nose or nasal congestion can occur with COVID. Treatment can help relieve symptoms: Try OTC nasal saline spray, or nasal saline rinse to relieve mucus congestion. Nasal strips can help keep nasal passages open, to increase airflow. Elevating your head with an extra pillow in bed can help reduce congestion. Using a humidifier can increase moisture in the air, and make breathing easier. Sore Throat- Another common symptom with COVID, can be managed at home by: Stay well hydrated. Gargle with salt water - mix teaspoon salt with 1 cup of warm water and gargle. This helps to loosen mucus in the back of the throat and may reduce discomfort. Try ice chips, popsicles or lozenges to soothe the throat. Nausea/Vomiting/Diarrhea- These are common symptoms, and staying hydrated is most important. If you are nauseous or vomiting, start with small sips of water every 10-15 minutes and increase astolerated. You can try sucking an ice cube too. If tolerating, you can try pedialyte or Gatorade, or flat sprite or germain-addi. Start slowly and increase as you are able to. Instead of meals, try smaller, more frequent snacks. Try eating bland foods like crackers, toast, rice, and applesauce. Avoid spicy, greasy or fried foods and dairy containing foods. Even if you aren't feeling hungry due to lack of smell or taste, it is important to try to take in some food when you are able. After drinking and eating, rest in an upright position for up to two hours as needed to help decrease nauseous feelings. Try closing your eyes, avoid moving and watching TV. Avoid strong odors that can make you feel more nauseated. When to seek emergency medical attention Look for emergency warning signs for COVID-19. If having any of these symptoms, seek emergency medical care immediately: Trouble breathing Persistent pain or pressure in the chest New confusion Inability to wake or stay awake Bluish lips or face *This list is not all possible symptoms. Please call your medical provider for any other symptoms that are severe or concerning to you. FACT SHEET FOR PATIENTS, PARENTS, AND CAREGIVERS EMERGENCY USE AUTHORIZATION (EUA) OF PAXLOVID FOR CORONAVIRUS DISEASE 2019 (COVID-19) You are being given this Fact Sheet because your healthcare provider believes it is necessary to provide you with PAXLOVID for the treatment of vqcl-qt-zvlwzrop coronavirus disease (COVID-19) caused by the SARS-CoV-2 virus. This Fact Sheet contains information to help you understand the risks and benefits of taking the PAXLOVID you may receive. This Fact Sheet also contains information about how to take PAXLOVID and how to report side effects or problems with the appearance or packaging of PAXLOVID. The U.S. Food and Drug Administration (FDA) has issued an Emergency Use Authorization (EUA) to makePAXLOVID available for the treatment of onpy-xz-hpfbjndn COVID-19 in adults and children 12 years of age and older weighing at least 88 pounds (40 kg) who are at high risk for progression to severe COVID-19, including hospitalization or (for more details about an EUA please see What is an Emergency Use Authorization? at the end of this document). Read this Fact Sheet for information about PAXLOVID. Talk to your healthcare provider about your options or if you have any questions. It is your choice to take PAXLOVID. What is COVID-19? COVID-19 is caused by a virus called a coronavirus. You can get COVID-19 through close contact withanother person who has the virus. COVID-19 illnesses have ranged from very mssa-is-wqemrn, including illness resulting in . While information so far suggests that most COVID-19 illness is mild, serious illness can happen and maycause some of your other medical conditions to become worse. Older people and people of all ages with severe, long lasting (chronic) medical conditions like heart disease, lung disease, and diabetes,for example seem to be at higher risk of being hospitalized for COVID-19. What is PAXLOVID? PAXLOVID is a medicine that is available under EUA for the treatment of frgd-uq-dejzudeu COVID-19 in adults and children 12 years of age and older weighing at least 88 pounds (40 kg) who are at high risk for progression to severe COVID-19, including hospitalization or . Although PAXLOVID is FDA- approved for the treatment of COVID-19 in certain adults (see section What other treatment choicesare there?), PAXLOVID use in children remains investigational because it is still being studied. There is limited information about the safety and effectiveness of using PAXLOVID to treat children with jgsf-hp-umujzqle COVID-19. What is the most important information I should know about PAXLOVID? PAXLOVID can interact with other medicines causing severe or life-threatening side effects or . It is important to know the medicines that should not be taken with PAXLOVID. Do not take PAXLOVID if: you are taking any of the following medicines: o alfuzosin o amiodarone o apalutamide o carbamazepine o colchicine o dihydroergotamine o dronedarone o eletriptan o eplerenone o ergotamine o finerenone o flecainide o flibanserin o ivabradine o lomitapide o lovastatin o lumacaftor/ivacaftor o lurasidone o methylergonovine o midazolam (oral) o naloxegol o phenobarbital o phenytoin o pimozide o primidone o propafenone o quinidine o ranolazine o rifampin o rifapentine o [place] s Wort (hypericum perforatum) o sildenafil (Revatio ) for pulmonary arterial hypertension o silodosin o simvastatin o tolvaptan o triazolam o ubrogepant o voclosporin These are not the only medicines that may cause serious or life-threatening side effects if taken with PAXLOVID. PAXLOVID may increase or decrease the levels of multiple other medicines. It is very important to tell your healthcare provider about all of the medicines you are taking because additional laboratory tests or changes in the dose of your other medicines may be necessary during treatment with PAXLOVID. Your healthcare provider may also tell you about specific symptoms to watch out for that may indicate that you need to stop or decrease the dose of some of your other medicines. you are allergic to nirmatrelvir, ritonavir, or any of the ingredients in PAXLOVID. See the end of this leaflet for a complete list of ingredients in PAXLOVID. See What are the important possible side effects of PAXLOVID? for signs and symptoms of allergic reactions. What should I tell my healthcare provider before I take PAXLOVID? Tell your healthcare provider if you: have kidney problems. You may need a different dose of PAXLOVID. have liver problems, including hepatitis. have Human Immunodeficiency Virus 1 (HIV-1) infection. PAXLOVID may lead to some HIV-1 medicines not working as well in the future. are or plan to become . It is not known if PAXLOVID can harm your unborn baby. Tell your healthcare provider right away if you are or if you become . are or plan to breastfeed. It is not known if PAXLOVID can pass into your breast milk. Talk to your healthcare provider about the best way to feed your baby during treatment with PAXLOVID. Some medicines may interact with PAXLOVID and may cause serious side effects. Tell your healthcare provider about all the medicines you take, including prescription and tbwu-bio-enfvguo medicines, vitamins, and herbal supplements. Your healthcare provider can tell you if it is safe to take PAXLOVID with other medicines. You can ask your healthcare provider or pharmacist for a list of medicines that interact with PAXLOVID. Do not start taking a new medicine without telling your healthcare provider. Tell your healthcare provider if you are taking combined control (hormonal contraceptive). PAXLOVID may affect how your hormonal contraceptives work. Females who are able to become should use another effective alternative form of contraception or an additional barrier method of contraception during treatment with PAXLOVID. Talk to your healthcare provider if you have any questions about contraceptive methods that might be right for you. How do I take PAXLOVID? Take PAXLOVID exactly as your healthcare provider tells you to take it. PAXLOVID consists of 2 medicines: nirmatrelvir tablets and ritonavir tablets. The 2 medicines are taken together 2 times each day for 5 days. Nirmatrelvir is an oval, pink tablet. Ritonavir is a white or off-white tablet. PAXLOVID is available in 2 Dose Packs (see Figures A and B below). Your healthcare provider will prescribe the PAXLOVID Dose Pack that is right for you. If you have kidney disease, your healthcare provider may prescribe a lower dose (see Figure B). Talk to your healthcare provider to make sure you receive the correct Dose Pack. Do not remove your PAXLOVID tablets from the blister card before you are ready to take your dose. Take your first dose of PAXLOVID in the morning or evening, depending on when you knot picker cloth your prescription, or as your healthcare provider tells you to. Swallow the tablets whole. Do not chew, break, or crush the tablets. Take PAXLOVID with or without food. Do not stop taking PAXLOVID without talking to your healthcare provider, even if you feel better. If you miss a dose of PAXLOVID within 8 hours of the time it is usually taken, take it as soon as you remember. If you miss a dose by more than 8 hours, skip the missed dose and take the next dose atyour regular time. Do not take 2 doses of PAXLOVID at the same time. If you take too much PAXLOVID, call your healthcare provider or go to the nearest hospital emergency room right away. If you are taking a ritonavir- or cobicistat-containing medicine to treat hepatitis C or HIV-1 infection, you should continue to take your medicine as prescribed by your healthcare provider. Talk to your healthcare provider if you do not feel better or if you feel worse after 5 days. What are the important possible side effects of PAXLOVID? PAXLOVID may cause serious side effects, including: Allergic reactions, including severe allergic reactions (anaphylaxis) have happened during treatment with PAXLOVID. Stop taking PAXLOVID and get medical help right away if you get any of the following symptoms of an allergic reaction: o skin rash, hives, blisters or peeling skin o painful sores or ulcers in the mouth, nose, throat or genital area o swelling of the mouth, lips, tongue or face o trouble swallowing or breathing o throat tightness o hoarseness Liver Problems. Tell your healthcare provider right away if you get any of the following signs and symptoms of liver problems during treatment with PAXLOVID: o loss of appetite o yellowing of your skin and the white of eyes o dark-colored urine o pale colored stools o itchy skin o stomach-area (abdominal) pain The most common side effects of PAXLOVID include: altered sense of taste and diarrhea. Other possible side effects include: headache vomiting abdominal pain nausea high blood pressure feeling generally unwell These are not all the possible side effects of PAXLOVID. For more information, ask your healthcare provider or pharmacist. What other treatment choices are there? PAXLOVID is FDA-approved for the treatment of yzew-qt-ystdtyqd COVID-19 in certain adults; however,there are not sufficient quantities of the approved presentations (i.e., dose packs) of PAXLOVID atthis time. This EUA continues to authorize the emergency use of PAXLOVID for the approved patient population to ensure continued access in order to meet the public health need. VEKLURY (remdesivir) is FDA-approved for the treatment of mpkl-sp-krcxkujs COVID-19 in certain adults and children. Talk with your healthcare provider to see if VEKLURY is appropriate for you. For information on the emergency use of other medicines that are authorized by FDA to treat people with COVID-19, please go to https://www.fda.gov/sfssvxewv-kdypaldinetl-quo-response/kjx-txjaj-nqalxag clr-nxb-wqaytv-framework/mwcpjupfs-dms-peufgtbuydgku. Your healthcare provider may talk with you about clinical trials for which you may be eligible. It is your choice to be treated or not to be treated with PAXLOVID. Should you decide not to receive it or for your child not to receive it, it will not change your standard medical care. What if I am or ? There is limited experience treating women or mothers with PAXLOVID. For a mother and unborn baby, the benefit of taking PAXLOVID may be greater than the risk from the treatment. If you are , discuss your options and specific situation with your healthcare provider. If you are , discuss your options and specific situation with your healthcare provider. How do I report side effects or problems with the appearance or packaging of PAXLOVID? Contact your healthcare provider if you have any side effects that bother you or do not go away. Report side effects or problems with the appearance or packaging of PAXLOVID (see Figures A and B above for examples of PAXLOVID Dose Packs) to FDA ClearRiskWatch at www.fda.gov/medwatch or call 1-685-AQT-9018 or you can report side effects to [employer]. at the contact information provided below. How should I store PAXLOVID? Store PAXLOVID tablets at room temperature, between 68?F to 77?F (20?C to 25?C). Keep PAXLOVID and all medicines out of the reach of children. What if I have questions about the expiration date for my PAXLOVID? The FDA has extended the expiration date (shelf-life) for some lots of PAXLOVID. To find the extended expiration date, enter the lot number found on the side of carton or bottom of blister pack at this website: https://www.paxlovidlotexExuru!/ or talk with your healthcare provider. Information onthe authorized shelf-life extensions for PAXLOVID may also be found at https://www.fda.gov/emergency -whoaqfmdpiez-bjy-kvsnunkw/hyr-aepld-uirbhfyies-awt-bdwybb-ncwfynjhg/expiration- dating-extension. How can I learn more about COVID-19? Ask your healthcare provider. Visit https://www.cdc.gov/COVID19. Contact your local or state public health department. What is an Emergency Use Authorization (EUA)? The [place] FDA has made PAXLOVID available under an emergency access mechanism called an Emergency Use Authorization (EUA). The EUA is supported by a [place] of Health and Human Services (HHS) declaration that circumstances exist to justify the emergency use of drugs and biological products during the COVID-19 pandemic. In issuing an EUA, the FDA has determined, among other things, that based on the total amount of scientific evidence available including data from adequate and well-controlled clinical trials, if available, it is reasonable to believe that the product may be effective for diagnosing, treating, or preventing COVID-19, or a serious or life-threatening disease or condition caused by COVID-19; that the known and potential benefits of the product, when used to diagnose, treat, or prevent such disease or condition, outweigh the known and potential risks of such product; and that there are no adequate, approved, and available alternatives. All of these criteria must be met to allow for the product to be available under an EUA. The EUA for PAXLOVID is in effect for the duration of the COVID-19 declaration justifying emergency use of this product, unless the relevant EUA declaration is terminated or the EUA revoked (after which the products may no longer be used under the EUA). What are the ingredients in PAXLOVID? Active ingredient: nirmatrelvir and ritonavir Nirmatrelvir inactive ingredients: colloidal silicon dioxide, croscarmellose sodium, lactose monohydrate, microcrystalline cellulose, and sodium stearyl fumarate. Film-coating contains: hydroxy propyl methylcellulose, iron oxide red, polyethylene glycol, and titanium dioxide. Ritonavir inactive ingredients: anhydrous dibasic calcium phosphate, colloidal silicon dioxide, copovidone, sodium stearyl fumarate, and sorbitan monolaurate. The film coating may contain: colloidal anhydrous silica, colloidal silicon dioxide, hydroxypropyl cellulose, hypromellose, polyethylene glycol, polysorbate 80, talc, and titanium dioxide. Additional Information For general questions, visit the website or call the telephone number provided below. Website: [email or web address] Telephone number: (1-877-c19-PACK) Distributed by [employer] [place] [address] [id number] Revised: 07/2022 documented in [facility] History of Present illness Narrative* Ladi Almanza APRN.DIE TECHNICIAN - 12/22/2022 11:46 AM EDT Chief Complaint Patient presents with: Recheck: 6 week follow up HPI Jaz Dukes is a 67 year old female who presents here today for anxiety and depression follow-up. Patient was seen 6 weeks ago and had prozac increased. Patient reports significant improvement in depression and anxiety. Sleep: is described as normal Alcohol use: has decreased usage to about 2 glasses of wine night.Drug use: No Appetite: good Suicidal Thoughts: No suicidal ideation, intent or plan Support: Comes from multiple sources including family Counseling: Yes, met with psychology since last visit. REVIEW OF SYSTEMS See HPI PAST MEDICAL HISTORY Diagnosis Date Abnormal glandular Papanicolaou smear of cervix 04/23/2005 Abn. 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 Hypertension Internal hemorrhoids without mention of complication Irregular menstrual cycle perimenopausal bleeding Snoring PAST SURGICAL HISTORY Procedure Laterality Date BIOPSY BREAST OPEN INCISIONAL 11/28/2000 left breast COLONOSCOPY FLX DX W/COLLJ SPEC WHEN PFRMD 05/17/2006 COLONOSCOPY FLX DX W/COLLJ SPEC WHEN PFRMD 06/16/2017 Colonoscopy COLPOSCOPY CERVIX UPPER/ADJACENT VAGINA 07/15/2000 Colposcopy CONIZATION CERVIX W/WO D&C RPR ELTRD EXC 08/03/2000 LEEP-Cervix LIG/TRNSXJ FLP TUBE ABDL/VAG APPR UNI/BI 05/27/1992 Tubal ligation, BPS OTHER MOHS- removal of squamous cells PAST SURGICAL HISTORY OF 1981 Broken Nose Repair PAST SURGICAL HISTORY OF 09/17/2004 EMB PAST SURGICAL HISTORY OF 09/2004 BONE DENSITTY SKIN BX, 1 LESION 12/15/2000 basal cell CA, on face SKIN EXCISION 12/23/2021 excision skin cyst lower back TONSILLECTOMY PRIMARY/SECONDARY <AGE 12 Tonsillectomy ALLERGIES Allergen Ujt-Ovwiu-Mnymc Bee, Mold, Propolis (Bee Glue), and Seasonal [Other] MEDICATIONS magnesium oxide (MAG-OX) 400 mg (241.3 mg magnesium) tablet Take 1 tablet by mouth daily at bedtime. estradiol (ESTRACE) 0.01 % (0.1 mg/gram) vaginal cream Use 1g vaginally nightly for 2 weeks. Then decrease to 2 times per week ongoing. sertraline (ZOLOFT) 100 mg tablet Take 1 tablet by mouth once daily. lisinopril (ZESTRIL, PRINIVIL) 5 mg tablet Take 1 tablet by mouth once daily. ezetimibe (ZETIA) 10 mg tablet Take 1 tablet by mouth once daily. fluticasone (FLONASE) 50 mcg/actuation nasal spray Use 2 Sprays in each nostril once daily. Rinse mouth after use. EPINEPHrine (EPIPEN) 0.3 mg/0.3 mL auto-injector Inject 0.3 mL intramuscularly as directed. use as directed for allergic reaction. Seek emergent medical immediately after use. (Patient taking differently: Inject 0.3 mg intramuscularly as directed. use as directed for allergic reaction. Seek emergent medical immediately after use.) FAMILY HISTORY Problem Relation Age of Onset Diabetes Father non-insulin Cancer Father Bladder and Basil Cell Cancer Paternal Grandmother Ovarian age 45 Lipids Mother Hyperlipidemia,stroke Heart Mother 65 [place] Hypertension Mother Arthritis Mother Cancer Mother Skin cancer - unsure of cell type other (heartburn) Son other (Other) Other No breast/uterine/colon cancer other (melanoma) Daughter Social History Tobacco Use Smoking status: Never Smokeless tobacco: Never Vaping Use Vaping Use: Never used Substance Use Topics Alcohol use: Yes Alcohol/week: 14.0 standard drinks of alcohol Types: 14 Glasses of Wine (5oz) per week Drug use: No PHYSICAL EXAM BP 128/74 Pulse 60 Resp 16 Wt 62.1 kg (137 lb) LMP 12/12/2009 SpO2 97% BMI 25.06 kg/m Appearance: well dressed well groomed, cooperative, and pleasant Behavior: good eye contact Speech: normal and fluent and coherent Mood: happy Affect: appropriate Perceptions: none Thought process: normal Thought Content: normal Intelligence level: normal Insight: good Judgment: good ASSESSMENT/PLAN: 1. Anxiety - ICD9: 300.00, ICD10: F41.9 (primary diagnosis) - much improvement with increase in zoloft dosage. - Reviewed concept of neurochemical imbalance wth depression/anxiety, treatment options and benefits of counseling in combination with medication. Also reviewed benefits of sleep hygeine, diet and exercise - Follow-up in 6 months or sooner as needed - Instructed patient to contact office or eypzi-zy-jxtj after-hours promptly should condition worsen or any new symptoms appear. - Counseling Center [facility] and after hours crisis line 2. Mild episode of recurrent major depressive disorder (HCC) - ICD9: 296.31, ICD10: F33.0 As above Prescription instructions reviewed with patient as applicable. Potential red flag symptoms discussed with the patient. Reviewed appropriate action plan to take if red flag symptoms occur. Patient agreeable to treatment plan Ladi Almanza APRN.DIE TECHNICIAN documented in this encounterM[facility]10-06-[facility]23 Miscellaneous Notes* Telephone Encounter - Hanna Kitchen LPN - 12/10/2022 12:47 PM EDT Phone call placed patient reported she has been out of town, didn't review [employer] message. Patient reported she ran out of magnesium oxide x1 wk prior c/o increased leg movements during the night. Please refill to [facility]. Hanna Kitchen LPN * Telephone Encounter - Eyla Guerrier Jr., MD - 12/06/2022 3:19 PM EDT Please clarify with pt if she is still taking and if helping with RLS as well as if she has attempted to hold the medication to see if symptoms have yet resolved. Thank you, Eyal Guerrier MD * Telephone Encounter - Tracey Myers OCCA - 12/06/2022 11:50 AM EDT Patient has been identified by name and date of : Yes Patient phones for refill(s): Requested Prescriptions Pending Prescriptions Disp Refills magnesium oxide (MAG-OX) 400 mg (241.3 mg magnesium) tablet 30 tablet 2 Sig: Take 1 tablet by mouth daily at bedtime. Date of last office visit in primary care: [facility] 06/21/22 03/09/23 [facility] Notes: ASSESSMENT/PLAN: 1. RLS (restless legs syndrome) - ICD9: 333.94, ICD10: G25.81 (primary diagnosis) Patient with s/s to clinically support the diagnosis of RLS as noted above. No clear etiology or provoking factor. Likely cause of awakenings during the night. Discussed with pt dx, etiology, physiology, treatment. Will check following labs for possible causes: - FERRITIN BLD - IRON + TIBC - VITAMIN B12 BLOOD - TSH BLD - T4 FREE/FREE THYROX For treatment as of now, will place on magnesium oxide 400mg nightly. If no improvement after 1 week will then transition to gabapentin 300mg-600mg QHS. SE and ADRs d/w pt. Also discussed transitioning all SSRIs to the AM hours. 2. Snoring - ICD9: 786.09, ICD10: R06.83 No evidence of VELIA on HSAT or in lab study. Snoring present. Discussed means of treating but pt would like to treat conservatively with positional therapy with pt sleeping on side. 3. Family history of dementia - ICD9: V17.2, ICD10: Z81.8 MOCA normal. Checking TSH and B12. Will continue to monitor. At this time cannot confirm etiology of pt's father's dx of dementia. Last 2 Encounter Wt Readings: Date: Wt: 11/10/2022 57.6 kg (127 lb) 09/21/2022 60.7 kg (133 lb 12.8 oz) Please advise. Thank you. REINALDO Mckeon * Telephone Encounter - Tracey Myers OCCA - 12/06/2022 9:08 AM EDT MC sent to patient inquiring about medication usage as last refill in June was for a 3 month supply and patient would have ran out in September. Please watch for patient response. Thank you. REINALDO Mckeon documented in this encounterM[facility]09-06-2023 Miscellaneous Notes* Telephone Encounter - Aura Blanton LISW - 11/10/2022 10:43 AM EDT Behavioral Health Social Work Progress Note Patient identified for [facility] from: PCP Reason for referral: Resources Behavioral Health Resources: Psychology - talk therapy [facility] encounter type: Telephone Encounter, NextPotentialt Message Attempts to Outreach: 1 attempt Referral made: Psychology - Internal Psychology-Internal referral type: Therapy Final Disposition: Resources given Patient Discharged?: Yes Patient reported that caregiver was able to meet their needs today?: Yes [facility] consult received. [facility] placed telephone call at the request of the PCP to discuss behavioral health needs and provide referrals for outpatient support. Patient previously saw Dr. Stuart Roblero in 2019. Would like to see this provider again. Will send [facility] scheduling information for patient to contact to schedule accordingly. [facility] [address] [place] [address] MARK ANTHONY Murphy, ACM-SW November 10, 2022 documented in this encounterM[facility]09-06-2023 History of Present illness Narrative* Older, ODALIS Bledsoe.DIE TECHNICIAN - 11/10/2022 8:28 AM EDT CC: Patient presents with: Medicare Wellness Exam: Annual Medicare Wellness HPI Jaz Dukes is a 67 year old female who presents today for medicare wellness and to review chronic conditions. Also has a few concerns. HTN: Ms. Dukes indicates that she is feeling well and denies any symptoms referable to elevated blood pressure. Specifically denies headache, chest pain, palpitations, dyspnea, and peripheral edema. Patient denies any side effects of her medication(s) and is compliant with their regimen. Jaz works out regularly 7 times per week with walking 1.5 to 2 miles. She watches her diet for sodium, low fat and low cholesterol most of the time. Last 3 Encounter BP Readings: Date: BP: 11/10/2022 128/80 09/21/2022 118/68 08/21/2022 128/74 Depression and Anxiety: Feels this is not controlled at this time. Uses ativan only for flying. Sleep: difficulty falling asleep Alcohol use: drinks 2 or more drinks a day Drug use: No Appetite: good Stresses: Major stressor: family change Suicidal Thoughts: No suicidal ideation, intent or plan Support: Comes from multiple sources including family Has seen Dr. Roblero for psychiatry previously and would like to see if she could re-establish withher. Bunion to right foot: Currently seeing a reducing machine operator outside of [place] but might needing surgery as it is getting larger. Wanted to bring this up so insurance requires her to see a [facility] provider. At end of appointment she reports she has had a patch of hair balding to front of scalp for over a year. Denies any scaling or itching, scalp changes, pain, or other new concerns. REVIEW OF SYSTEMS General: no fevers, no chills, no night sweats, no recurrent infections, no change in appetite, no change in energy, and no significant changes in weight Respiratory: no cough, no wheezing, no shortness of breath, no hemoptysis Cardiovascular: no chest pain, no chest pressure, no palpitations, and no swelling GI: No nausea, vomiting, or diarrhea Skin: Negative for lesions, rash, and itching outside of reported hair loss. Endocrine: no fatigue, no polyuria, no polyphagia, and no polydipsia Neurologic: No headache, weakness, numbness, tingling, dizziness, memory loss, syncope. CP PHQ9 11/10/2022 Little interest or pleasure 2 - More than half the days Feeling down, depressed, hopeless 0 - Not at all Trouble falling or staying asleep, sleeping too much 3 - nearly every day Feeling tired, having little energy 1 - Several days Poor appetite or overeating 0 - Not at all Feeling bad about yourself, failure or you have let yourself/family down 1 - Several days Trouble concentrating on things 3 - Nearly every day Moving or speaking so slowly, or fidgety or restless 3 - Nearly every day Thoughts that you would be better off , or of hurting yourself in some way 0 - Not at all How difficult have these problems made things Somewhat difficult Interpretation of Total Score 10-14 Moderate depression ALVARO-7 ANXIETY SCALE 11/10/2022 FEELING NERVOUS,ANXIOUS,OR ON EDGE 1 Several days NOT BEING ABLE TO STOP OR CONTROL WORRYING 3 Nearly every day WORRYING TOO MUCH ABOUT DIFFERENT THINGS 3 Nearly every day TROUBLE RELAXING 3 Nearly every day BEING SO RESTLESS THAT IT'S HARD TO SIT STILL 3 Nearly every day BEING EASILY ANNOYED OR IRRITABLE 0 Not at all sure FEELING AFRAID IF SOMETHING AWFUL MIGHT HAPPEN 2 Over half the days GAD7 SCORE 15 IF YOU CHECKED OFF ANY PROBLEMS Somewhat difficult PAST MEDICAL HISTORY Diagnosis Date Abnormal glandular Papanicolaou smear of cervix 04/23/2005 Abn. 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 Hypertension Internal hemorrhoids without mention of complication Irregular menstrual cycle perimenopausal bleeding Snoring PAST SURGICAL HISTORY Procedure Laterality Date BIOPSY BREAST OPEN INCISIONAL 11/28/2000 left breast COLONOSCOPY FLX DX W/COLLJ SPEC WHEN PFRMD 05/17/2006 COLONOSCOPY FLX DX W/COLLJ SPEC WHEN PFRMD 06/16/2017 Colonoscopy COLPOSCOPY CERVIX UPPER/ADJACENT VAGINA 07/15/2000 Colposcopy CONIZATION CERVIX W/WO D&C RPR ELTRD EXC 08/03/2000 LEEP-Cervix LIG/TRNSXJ FLP TUBE ABDL/VAG APPR UNI/BI 05/27/1992 Tubal ligation, BPS OTHER MOHS- removal of squamous cells PAST SURGICAL HISTORY OF 1981 Broken Nose Repair PAST SURGICAL HISTORY OF 09/17/2004 EMB PAST SURGICAL HISTORY OF 09/2004 BONE DENSITTY SKIN BX, 1 LESION 12/15/2000 basal cell CA, on face SKIN EXCISION 12/23/2021 excision skin cyst lower back TONSILLECTOMY PRIMARY/SECONDARY <AGE 12 Tonsillectomy ALLERGIES Allergen Clg-Gyoes-Htqkn Bee, Mold, Propolis (Bee Glue), and Seasonal [Other] MEDICATIONS sertraline (ZOLOFT) 50 mg tablet Take 1 tablet by mouth once daily. estradiol (ESTRACE) 0.01 % (0.1 mg/gram) vaginal cream Use 1g vaginally nightly for 2 weeks. Then decrease to 2 times per week ongoing. magnesium oxide (MAG-OX) 400 mg (241.3 mg magnesium) tablet Take 1 tablet by mouth daily at bedtime. lisinopril (ZESTRIL, PRINIVIL) 5 mg tablet Take 1 tablet by mouth once daily. ezetimibe (ZETIA) 10 mg tablet Take 1 tablet by mouth once daily. fluticasone (FLONASE) 50 mcg/actuation nasal spray Use 2 Sprays in each nostril once daily. Rinse mouth after use. EPINEPHrine (EPIPEN) 0.3 mg/0.3 mL auto-injector Inject 0.3 mL intramuscularly as directed. use as directed for allergic reaction. Seek emergent medical immediately after use. (Patient taking differently: Inject 0.3 mg intramuscularly as directed. use as directed for allergic reaction. Seek emergent medical immediately after use.) FAMILY HISTORY Problem Relation Age of Onset Diabetes Father non-insulin Cancer Father Bladder and Basil Cell Cancer Paternal Grandmother Ovarian age 45 Lipids Mother Hyperlipidemia,stroke Heart Mother 65 [place] Hypertension Mother Arthritis Mother Cancer Mother Skin cancer - unsure of cell type other (heartburn) Son other (Other) Other No breast/uterine/colon cancer other (melanoma) Daughter Social History Tobacco Use Smoking status: Never Smokeless tobacco: Never Vaping Use Vaping Use: Never used Substance Use Topics Alcohol use: Yes Alcohol/week: 14.0 standard drinks of alcohol Types: 14 Glasses of Wine (5oz) per week Drug use: No PHYSICAL EXAM BP 128/80 Pulse 60 Resp 16 Wt 57.6 kg (127 lb) LMP 12/12/2009 SpO2 100% BMI 23.23 kg/m General Appearance: well appearing, in no acute distress, alert Pysch: mood and affect broad and appropriate Skin: Skin color, texture, turgor normal for age; bald patch to front of scalp, smooth, without discolorations, scaling, rash, or any other notable abnormality. Eyes: conjunctiva pink and moist, no icterus, sclera white, non-injected Neck: Thyroid normal size and symmetric without palpable nodules, Neck supple, No adenopathy Lymph nodes: No cervical lymphadenopathy and No supraclavicular lymphadenopathy Lungs: Lungs clear to auscultation. No wheezing, rhonchi, rales. Heart: RRR without murmur, gallop, or rubs. No ectopy - right foot with large bunion without redness or concern. No edema, open areas, or other abnormalities noted. Health maintenance reviewed with patient: ADVANCE DIRECTIVE DISCUSSION Never done INFLUENZA(1) due on 09/04/2023 COVID-19 VACCINE(6 - Moderna series) due on 11/11/2023 ANNUAL PCP TEAM CHRONIC DISEASE VISIT due on 05/06/2023 BP CONTROLLED (<130/80) due on 09/22/2023 MAMMOGRAM due on 10/12/2023 DIABETES SCREEN due on 11/09/2025 COLORECTAL CANCER SCREENING due on 06/17/2027 LIPID SCREEN due on 06/23/2027 DTAP,TDAP,TD(3 - Td or Tdap) due on 02/24/2030 BONE DENSITY Completed HEPATITIS C SCREENING Completed SHINGRIX VACCINE Completed PNEUMOCOCCAL: 65+ Completed PAP TESTING Discontinued DATA REVIEWED: No new labs ASSESSMENT/PLAN: 1. Medicare annual wellness visit, subsequent - ICD9: V70.0, ICD10: Z00.00 (primary diagnosis) - Counseled on healthy diet and regular exercise - Calcium intake with supplements or by diet of 1000 mg/day for under 50, 1200- 1500 mg/day for 50+ - Depression screening tool completed and reviewed with patient. Based on score and interview, patient is already diagnosed with depression and recommended counseling/psychology referral and increasing medication. - Patient was counseled [id number] by myself (the billing provider) for the following immunizations and vaccine components, including side effects: COVID-19 and Influenza. Patient consents for immunization and understands risks and benefits. A VIS sheet on each immunization was given to the patient. 2. Mild episode of recurrent major depressive disorder (HCC) - ICD9: 296.31, ICD10: F33.0 - Uncontrolled, sertraline increased. - CONSULT TO PRIMARY [facility] ADULT - Reviewed concept of neurochemical imbalance wth depression/anxiety, treatment options and benefits of counseling in combination with medication. Also reviewed benefits of sleep hygeine, diet and exercise - Follow-up in 6 weeks or sooner as needed - Instructed patient to contact office or [id number] after-hours promptly should condition worsen or any new symptoms appear. - Counseling Center [facility] and after hours crisis line 3. Anxiety - ICD9: 300.00, ICD10: F41.9 As above - CONSULT TO PRIMARY [facility]ARE [facility] ADULT - SERTRALINE 100 MG TABLET 4. Hair loss - ICD9: 704.00, ICD10: L65.9 - unsure on cause, discussed needing to see dermatology. Patient already with a pediatrician/medical doctor and will follow with them. - TSH BLD - CBC + DIFF - VITAMIN B12 BLOOD - IRON + TIBC - FERRITIN BLD 5. Essential hypertension - ICD9: 401.9, ICD10: I10 - Controlled - Continue current medications - Recommend home blood pressure monitoring, to bring results to next visit - Encouraged sodium restriction, DASH or Mediterranean diet - Recommend regular aerobic exercise 6. Bunion, right foot - ICD9: 727.1, ICD10: M21.611 - patient to call if consult to [facility] reducing machine operator is needed after she speaks with insurance. 7. Elevated glucose - ICD9: 790.29, ICD10: R73.09 - HGB A1C Prescription instructions reviewed with patient as applicable. Potential red flag symptoms discussed with the patient. Reviewed appropriate action plan to take if red flag symptoms occur. Patient agreeable to treatment plan. Ladi Almanza APRN.CNP * Ladi Almanza APRN.CNP - 11/10/2022 8:13 AM EDT Jaz Dukes is a 67 year old female here for a Medicare wellness visit. Health Risk Assessment In general, health is: Excellent Concerns with balance: Not at all Concerns with teeth or dentures: Not at all Concerns with sexual function: Not at all Goodman anxious, stressed, angry, irritable, lonely, isolated, or had thoughts of hurting themself: Several days Has little interest or pleasure in doing things: Not at all Bothered by feeling down, depressed, or hopeless: Several days Needs help with grocery shopping, cooking, housework, bathing, grooming, dressing, eating, sitting or standing, walking, using the toilet, handling finances, taking medications, using the telephone, or driving: No Following safety precautions in the home environment and vehicle: removed throw rugs from floors, installed grab bars in the bathroom, handrails in stairwells, having adequate lighting, wearing seatbelt at all times?: Yes Smokes cigarettes, vapes, or chew tobacco: No Eats healthy foods including fruits, vegetables, whole grains, and fiber-rich foods: Nearly every day Number of days per week engages in exercise: 7 days Average alcohol consumption: 4 or more times a week Current Providers Specialists: I have reviewed specialist-related care of the patient in the medical record. Podiatry: unsure on name Dermatology: Dr. Christianson Sleep Medicine: Dr. Guerrier ENT: Dr. Banks Optometry: unsure on name Medical/Family history review Reviewed and updated problem list, medical/surgical/family/social history, medications, and allergies. Opioid use review Patient is not currently using opioids. Depression screening Depression Screening PHQ-2 Score PHQ-9 Score 11/09/2022 1 4 Depression screening tool completed and reviewed. Based on score and interview, patient is already diagnosed with depression. Screening tool discussed with patient, and I recommended counseling/psychology referral and increasing medication. Cognitive screening Mini Cog Score: 5 Functional Observation Was the patient's timed Up & Go test unsteady or ? 12 seconds? No Advance Care Planning End of Life planning discussed, including patient's advanced directive wishes: Yes Measurements BP 128/80 Pulse 60 Resp 16 Wt 127 lb (57.6kg) SpO2 100% LMP 12/12/2009 Visual acuity (required for Welcome to Medicare): follows with optometry/ophthalmology Hearing Evaluation: within normal limits Assessment/Plan Medicare annual wellness visit, subsequent (Z00.00) - Counseled on healthy diet and regular exercise - Fall avoidance - Vaccines recommended COVID-19 and Influenza - Diabetes screening - Depression screening - Substance use screening [facility] Instructions* Patient Instructions* Ladi Almanza APRN.CNP - 11/10/2022 8:20 AM EDT Screening schedule The following prevention plan is recommended: ADVANCE DIRECTIVE DISCUSSION Never done COVID-19 VACCINE(6 - Moderna series) due on 03/21/2022 INFLUENZA(1) due on 11/05/2022 WHAT YOU CAN DO TO PREVENT FALLS Many falls can be prevented. By making some changes, you can lower your chances of falling. Four things YOU can do to prevent falls for you* and your caregiver 1. Begin a regular exercise program Exercise is one of the most important ways to lower your chances of falling. It makes you stronger and helps you feel better. Exercises that improve balance and coordination (like Ian Chi) are the most helpful. Lack of exercise leads to weakness and increases your chances of falling. Ask your doctor or health care provider about the best type of exercise program for you. 2. Have your health care provider review your medicines Have your doctor or pharmacist review all the medicines you take, even isuq-ifw-[id number] medicines. As you get older, the way medicines work in your body can change. Some medicines, or combinations of medicines, can make you sleepy or dizzy andcan cause you to fall. 3. Have your vision checked Have your eyes checked by an eye doctor at least once a year. You may be wearing the wrong glasses or have a condition like glaucoma or cataracts that limits your vision. Poor vision can increase your chances of falling. 4. Make your home safer About half of all falls happen at home. To make your home safer: Remove things you can trip over (like papers, books, clothes, and shoes) from stairs and places where you walk. Remove small throw rugs or use double-sided tape to keep the rugs from slipping. Keep items you use often in cabinets you can reach easily without using a step stool. Have grab bars put in next to your toilet and in the tub or shower. Use non-slip mats in the bathtub and on shower floors. Improve the lighting in your home. As you get older, you need brighter lights to see well. Hang light-weight curtains or shades to reduce glare. Have handrails and lights put in on all staircases. Wear shoes both inside and outside the house. Avoid going barefoot or wearing slippers. For more information, contact: Centers for Disease Control and Prevention www.cdc.gov/injury * This information may not apply if you have certain medical conditions. documented in this encounterM[facility]08-[facility]23 Miscellaneous Notes* Letter - Coordinator, Mammography - 10/12/2022 7:23 AM EDT October 12, 2022 PID: [id number] Jaz Dukes [address] [place] [address] Dear Ms. Dukes, We are pleased to inform you that the results of your recent breast imaging exam on 10/11/2022 are normal. Early detection of cancer is very important. We also understand recommendations regarding breast cancer screening are controversial. Please discuss with your primary care provider which strategy is best for you and whether a mammogram is right for you. Your imaging studies and report will be kept on file at [facility] as part of your permanent medical record and are available for your continuing care. Thank you for allowing us to help in meeting your health care needs. Sincerely, Dr. Bullock Interpreting Radiologist [facility] (Normal over 40) documented in this encounterMari[facility]08-07-2023 History of Present illness Narrative* Christine Bolanos Mammo Arnold - 10/11/2022 1:30 PM EDT Radiology Service Progress Note PATIENT NAME: Jaz Dukes DATE OF SERVICE: October 11, 2022 TIME: 1:29 PM PATIENT IDENTITY VERIFICATION COMPLETED USING TWO (2) IDENTIFIERS: Name and Date of confirmedby patient verbally. FALL SCREENING: Has the patient had 2 falls in the last year or 1 fall with injury or currently using an Ambulatory Assistive Device (Walker, Cane, Wheelchair, Crutches, etc.)? No PATIENT GENDER DATA: Female. status: : No status: NO. PATIENT RELEVANT IMPLANT DATA REVIEWED: Not Applicable RADIOLOGY DEPARTMENT: Mammography PERIPHERAL IV DATA: Not applicable SIGNED BY: Afua Whitehead October 11, 2022 1:29 PM documented in this encounterM[facility]07-18-2023 Miscellaneous Notes* Addendum Note - Shar Enamorado MD - 09/21/2022 3:09 PM EDTAddended by: SHAR ENAMORADO on: 09/21/2022 03:09 PM Modules accepted: Orders * Addendum Note - Julianna Alva Ma - 09/21/2022 2:24 PM EDTAddended by: JULIANNA ALVA MA on: 09/21/2022 02:24 PM Modules accepted: Orders documented in this encounterM[facility]07-18-2023 History of Present illness Narrative* Shar Enamorado MD - 09/21/2022 1:45 PM EDT Dining Room Attendant offered: Patient declines. Hebert is a 67 year old who presents for an annual gynecologic exam. She reports vaginal itching. Patient ran out of vaginal estrogen a while ago and wants to restart. Postmenopausal: Yes HRT use: No. 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 Hypertension Internal hemorrhoids without mention of complication Irregular menstrual cycle perimenopausal bleeding Snoring PAST SURGICAL HISTORY Procedure Laterality Date BIOPSY BREAST OPEN INCISIONAL 11/28/2000 left breast COLONOSCOPY FLX DX W/COLLJ SPEC WHEN PFRMD 05/17/2006 COLONOSCOPY FLX DX W/COLLJ SPEC WHEN PFRMD 06/16/2017 Colonoscopy COLPOSCOPY CERVIX UPPER/ADJACENT VAGINA 07/15/2000 Colposcopy CONIZATION CERVIX W/WO D&C RPR ELTRD EXC 08/03/2000 LEEP-Cervix LIG/TRNSXJ FLP TUBE ABDL/VAG APPR UNI/BI 05/27/1992 Tubal ligation, BPS OTHER MOHS- removal of squamous cells PAST SURGICAL HISTORY OF 1981 Broken Nose Repair PAST SURGICAL HISTORY OF 09/17/2004 EMB PAST SURGICAL HISTORY OF 09/2004 BONE DENSITTY SKIN BX, 1 LESION 12/15/2000 basal cell CA, on face SKIN EXCISION 12/23/2021 excision skin cyst lower back TONSILLECTOMY PRIMARY/SECONDARY <AGE 12 Tonsillectomy FAMILY HISTORY Problem Relation Age of Onset Diabetes Father non-insulin Cancer Father Bladder and Basil Cell Cancer Paternal Grandmother Ovarian age 45 Lipids Mother Hyperlipidemia,stroke Heart Mother 65 [place] Hypertension Mother Arthritis Mother Cancer Mother Skin cancer - unsure of cell type other (heartburn) Son other (Other) Other No breast/uterine/colon cancer other (melanoma) Daughter SOCIAL HISTORY Social History Tobacco Use Smoking status: Never Smokeless tobacco: Never Vaping Use Vaping Use: Never used Substance Use Topics Alcohol use: Yes Alcohol/week: 5.0 standard drinks of alcohol Types: 2 Glasses of Wine (5oz) per week Comment: 3 x per week or less Drug use: No REVIEW OF SYSTEMS Abdomen: No abdominal pain, nausea, vomiting, diarrhea, or constipation. No bloating, early satiety, indigestion, or increased flatulence. Bladder: No dysuria, gross hematuria, urinary frequency, urinary urgency, or incontinence Breast: No breast lumps, nipple d/c, overlying skin changes, redness or skin retraction Allergies and current medication updated:Yes EXAM: BP 118/68 Ht 5' 2 (1.58m) Wt 133 lb 12.8 oz (60.7kg) LMP 12/12/2009 BMI 24.47 kg/(m^2). GENERAL: pleasant, female in no apparent distress BREAST: soft, non-tender, symmetric, no dominant mass, normal nipple-areolar complex, no lymphadenopathy, and no nipple discharge CHEST: Normal inspiratory effort ABDOMEN: soft, non-tender, and no masses PELVIC: external genitalia normal, no vulvar lesions, no cervical lesions, normal appearing perineal body and perianal region; atrophic vagina BIMANUAL: uterus normal size, shape and consistency, no adnexal masses, and non-tender RECTOVAGINAL: rectovaginal exam negative for any masses or nodularity. NEURO: alert and oriented x3,exam grossly non-focal EXTREMITIES: normal ASSESSMENT/PLAN: 1) Health maintenance: Pap/HPV screening no longer needed Mammogram ordered Nutrition, exercise and routine health maintenance exams reviewed. Colon cancer screening: up to date with screening BMD: followed by PCP 2) Follow up one year or sooner as needed 3) Vaginal itching - suspect from atrophy. Rx estrace refilled. Vaginitis swab sent. Shar Enamorado MD documented in this encounterM[facility]06-17-2023 History of Present illness Narrative* Trang Lilly APRN.DIE TECHNICIAN - 08/21/2022 3:25 PM EDT Images from the original note were not included. Subjective The history is provided by the patient. No speech language pathologist travel was used. HPI Jaz Dukes is a 67 year old female who presents today for CC of insect bite on right upper thigh This started 2 days ago, she was walking through the tall grass, she doesn't know if a tickattached or not. She does not have any redness or swelling. No treatment or medications. LMP 12/12/2009 Social History Tobacco Use Smoking status: Never Smokeless tobacco: Never Vaping Use Vaping Use: Never used Substance Use Topics Alcohol use: Yes Alcohol/week: 5.0 standard drinks Types: 2 Glasses of Wine (5oz) per week Comment: 3 x per week or less Drug use: No PAST MEDICAL HISTORY Diagnosis Date Abnormal glandular Papanicolaou smear of cervix 04/23/2005 Abn. 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 Musculoskeletal: Negative for joint pain and myalgias. Skin: Negative for itching and rash. Insect bite All other systems reviewed and are negative. Objective Physical Exam Vitals and nursing note reviewed. Pulmonary: Effort: Pulmonary effort is normal. Skin: General: Skin is warm and dry. Comments: Two puncture kennedy, surrounding ecchymosis Neurological: Mental Status: She is alert and oriented to person, place, and time. Psychiatric: Mood and Affect: Affect normal. ASSESSMENT/PLAN: 1. Rash - ICD9: 782.1, ICD10: R21 Possible tick bite, insect bite Doxycycline prophylaxis as ordered Monitor for signs of infection Follow up with PCP prn Diagnosis and treatment plan were discussed and questions were answered to the patient's satisfaction. Pt acknowledged understanding of concepts and follow up plan. Specific signs and symptoms that would indicate the need for higher level of care were discussed indetail warranting prompt ER evaluation. Trang Lilly APRN.AJ documented in this encounterM[facility]03-01-2023 History of Present illness Narrative* Micah High MD - 05/05/2022 9:32 AM EST Reason for Visit Patient presents with: Follow Up: refill needed Jaz Dukes is a 66 year old female who presents here today for Above Complaints.. Health Maintenance PNEUMOCOCCAL: 65+(2 - PPSV23 if available, else PCV20) ADVANCE DIRECTIVE DISCUSSION MAMMOGRAM HPI Sleep apnea: patient notes feeling tired every morning when she wakes up. notes she snores a lot, moves around a lot at night, he has witnessed apnea and gasps. Not just by but by OLIVIA. She is sleeping in the afternoons a lot, she feels tired during the day and feels lethargic a lot every morning. Fatigue and brain fog are constant for a while. She did have the sleep study and although there were concerns, it was not unequivocal. She is seeing the sleep specialist. 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 Patient has lost 5 pounds , she has been walking her sons dog for a couple miles and says she has really been working on the weight loss. She did cut back on some food recently, there are certain things she does not eat. She does really eat all that much of beef. For the most part, she cuts back on eating. Patient does not check her bp at home, she does have a cuff. Encouraged to check bp and keep a log and report if it is more than 130 consistently. Patient has been to [facility] 2 weeks ago. She takes the zetia and has no troubles with the medications. No problem-specific Assessment & Plan notes found for this encounter. PAST MEDICAL HISTORY Diagnosis Date Abnormal glandular Papanicolaou smear of cervix 04/23/2005 Abn. 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 Hypertension Internal hemorrhoids without mention of complication Irregular menstrual cycle perimenopausal bleeding Snoring PAST SURGICAL HISTORY Procedure Laterality Date BIOPSY BREAST OPEN INCISIONAL 11/28/2000 left breast COLONOSCOPY FLX DX W/COLLJ SPEC WHEN PFRMD 05/17/2006 COLONOSCOPY FLX DX W/COLLJ SPEC WHEN PFRMD 06/16/2017 Colonoscopy COLPOSCOPY CERVIX UPPER/ADJACENT VAGINA 07/15/2000 Colposcopy CONIZATION CERVIX W/WO D&C RPR ELTRD EXC 08/03/2000 LEEP-Cervix LIG/TRNSXJ FLP TUBE ABDL/VAG APPR UNI/BI 05/27/1992 Tubal ligation, BPS OTHER MOHS- removal of squamous cells PAST SURGICAL HISTORY OF 1981 Broken Nose Repair PAST SURGICAL HISTORY OF 09/17/2004 EMB PAST SURGICAL HISTORY OF 09/2004 BONE DENSITTY SKIN BX, 1 LESION 12/15/2000 basal cell CA, on face SKIN EXCISION 12/23/2021 excision skin cyst lower back TONSILLECTOMY PRIMARY/SECONDARY <AGE 12 Tonsillectomy FAMILY HISTORY Problem Relation Age of Onset Diabetes Father non-insulin Cancer Father Bladder and Basil Cell Cancer Paternal Grandmother Ovarian age 45 Lipids Mother Hyperlipidemia,stroke Heart Mother 65 [place] Hypertension Mother Arthritis Mother Cancer Mother Skin cancer - unsure of cell type other (heartburn) Son other (Other) Other No breast/uterine/colon cancer other (melanoma) Daughter Social History Tobacco Use Smoking status: Never Smokeless tobacco: Never Vaping Use Vaping Use: Never used Substance Use Topics Alcohol use: Yes Alcohol/week: 5.0 standard drinks Types: 2 Glasses of Wine (5oz) per week Comment: 3 x per week or less Drug use: No Past medical history, appointments, medications, allergies reviewed. Pertinent Lab/Diagnostic Studies are reviewed and discussed today Current Outpatient Medications: ezetimibe (ZETIA) 10 mg tablet mupirocin (BACTROBAN) 2 % ointment lisinopril (ZESTRIL, PRINIVIL) 5 mg tablet sertraline (ZOLOFT) 50 mg tablet estradiol (ESTRACE) 0.01 % (0.1 mg/gram) vaginal cream fluticasone (FLONASE) 50 mcg/actuation nasal spray EPINEPHrine (EPIPEN) 0.3 mg/0.3 mL auto-injector Review of Systems CONSTITUTIONAL: No fevers, chills night sweats, unintended weight loss CARDIOVASCULAR: No chest pain, dyspnea, palpitations, orthopnea, PND, ankle edema. PULM: No dyspnea, unexplained cough. GI: No dysphagia/odynophagia, problematic reflux, constipation, diarrhea, changes in stool habits, hematochezia, melena. : No new urinary complaints, including dysuria, gross hematuria or pyuria. NEURO: No new balance problems, peripheral weakness/paresthesias or numbness of concern. Physical Exam BP 132/76 (BP Site: Left Arm, BP Position: Sitting, BP Cuff Size: Large Adult) Pulse 63 Temp 36.6 C (97.9 F) Resp 12 Ht 157.5 cm (5' 2) Wt 61.2 kg (135 lb) LMP 12/12/2009 SpO2 97% BMI 24.69 kg/m General appearance: Well appearing, alert, in no acute distress, well nourished. Skin: Skin color, texture, turgor normal, no suspicious rashes or lesions Head: Normocephalic, no masses, lesions, tenderness or abnormalities Eyes: Anicteric sclera. Pupils are equally round and reactive to light. Extraocular movements are intact. Lungs: Lungs clear to auscultation. No wheezing, rhonchi, rales Heart: RRR without murmur, gallop, or rubs. Extremities: No deformities, edema, skin discoloration, clubbing or cyanosis. Good capillary refill. ASSESSMENT/PLAN: 1. Sleep apnea, unspecified type - ICD9: 780.57, ICD10: G47.30 (primary diagnosis) Advised to see sleep medicine 2. Mixed hyperlipidemia - ICD9: 272.2, ICD10: E78.2 - LIPID PANEL BASIC 3. Essential hypertension - ICD9: 401.9, ICD10: I10 - good control - Recommended regular aerobic exercise. - Recommend home blood pressure monitoring, to bring results in on next visit - Goal of BP <130/80 - LISINOPRIL 5 MG TABLET 4. Need for vaccination - ICD9: V05.9, ICD10: Z23 - PNEUMOCOCCAL IMMUNIZATION PPSV 23 Micah High MD documented in this encounterM[facility]02-08-2023 Miscellaneous Notes* Telephone Encounter - Helena Tomas LPN - 04/14/2022 3:28 PM EST Patient has been identified by name and date of : No Patient phones for refill(s): Requested Prescriptions Pending Prescriptions Disp Refills ezetimibe (ZETIA) 10 mg tablet 30 tablet 11 Sig: Take 1 tablet by mouth once daily. Date of last office visit in primary care: 01/05/22 Last 2 Encounter Wt Readings: Date: Wt: 01/05/2022 63.5 kg (140 lb) 12/28/2021 64.2 kg (141 lb 9.6 oz) Previous labs/tests for medication: Not applicable Please advise. Thank you. Helena Tomas LPN documented in this encounterM[facility]01-11-2023 Miscellaneous Notes* Telephone Encounter - Lilibeth Green Ma - 03/17/2022 8:42 AM EST Sleep study report printed and placed on PCP desk. documented in this encounterMari[facility]12-12-2022 Miscellaneous Notes* Telephone Encounter - Helena Tomas LPN - 02/15/2022 4:49 PM EST Patient has been identified by name and date of : Yes Patient phones for refill(s): Requested Prescriptions Pending Prescriptions Disp Refills ezetimibe (ZETIA) 10 mg tablet 30 tablet 3 Sig: Take 1 tablet by mouth once daily. Date of last office visit in primary care: 01/05/2022 Last 2 Encounter Wt Readings: Date: Wt: 01/05/2022 63.5 kg (140 lb) 12/28/2021 64.2 kg (141 lb 9.6 oz) Previous labs/tests for medication: Cholesterol: HDL Cholesterol (mg/dL) Date Value 10/30/2021 69 02/16/2020 61 LDL Cholesterol (mg/dL) Date Value 10/30/2021 152 02/16/2020 101 ALT (U/L) Date Value 10/30/2021 16 03/23/2018 17 Non HDL Cholesterol (mg/dL) Date Value 10/30/2021 177 02/16/2020 119 Please advise. Thank you. Helena Tomas LPN documented in this encounterMarietta [facility]12-12-2022 History of Present illness Narrative* Karin Nation, RT(R) - 02/15/2022 9:20 AM EST Radiology Service Progress Note PATIENT NAME: Jaz Dukes DATE OF SERVICE: February 15, 2022 TIME: 3:12 PM PATIENT IDENTITY VERIFICATION COMPLETED USING TWO (2) IDENTIFIERS: Name and Date of confirmedby patient verbally. FALL SCREENING: Has the patient had 2 falls in the last year or 1 fall with injury or currently using an Ambulatory Assistive Device (Walker, Cane, Wheelchair, Crutches, etc.)? No PATIENT GENDER DATA: Female. status: : No status: NO. PATIENT RELEVANT IMPLANT DATA REVIEWED: Not Applicable RADIOLOGY DEPARTMENT: CT; Exam(s) Completed: Sinus PERIPHERAL IV DATA: Not applicable SIGNED BY: RT Goyo(R) February 15, 2022 3:12 PM documented in this encounterMarietta [facility]12-07-2022 Miscellaneous Notes* Telephone Encounter - Lilibeth Green Ma - 02/10/2022 4:07 PM EST Order, OV, sleep study and demographics faxed. * Telephone Encounter - Micah High MD - 02/05/2022 6:38 PM EST Forms are signed Regards, Micah High MD * Telephone Encounter - Lilibeth Green Ma - 02/04/2022 9:35 AM EST [facility] order placed on PCP desk for signature. documented in this encounterMarietta [facility]11-18-2022 History of Present illness Narrative* Yvonne Aguila - 01/22/2022 12:36 PM EST Sleep Study Check-In Documentation Date: January 22, 2022 Name: Jaz Dukes Comments: HST was returned in working order with all sleep questionnaires Yvonne Aguila * Jayleen Sharma - 01/19/2022 1:27 PM EST [facility]# [id number] Mail out date:01/19/2022 [employer] Shipping #[id number] [employer] Return #: [id number] * Jayleen Sharma - 01/18/2022 2:57 PM EST Sent my chart message advising of delay in appointment. * Lauren Paz MD - 01/14/2022 8:23 AM EST January 14, 2022 Standing PSG Orders signed in the last 90 days None Future PSG Orders signed in the last 90 days Ordered Auth. provider HOME SLEEP APNEA TEST (HSAT) [[id number]] 01/05/22 Micah High MD Assoc. diagnoses: Sleep apnea, unspecified type [G47.30] Q: Indications: A: Obstructive sleep apnea Q: STOP-BANG conditions - Select All That Apply: A: AGE > 50 A2: high blood PRESSURE A3: SNORINGthat is loud or disruptive A4: TIREDNESS, fatigue or sleepiness during the day A5: OBSERVED sleep apnea Q: Current use of supplemental oxygen during sleep period?: A: No CONSULT TO SLEEP MEDICINE - ADULT [[id number]] 01/05/22 Micah High MD Assoc. diagnoses: Sleep apnea, unspecified type [G47.30] Q: Does consulting provider have [facility] Epic access?: A: Yes All Prior Sleep Studies (past 365 days) Some values may be hidden. Unless noted otherwise, only the newest values recorded on each date aredisplayed. Sleep Studies CONSULT TO SLEEP MEDICINE - ADULT Future Expected: Expires: 01/05/23 HOME SLEEP APNEA TEST (HSAT) Future Expected: Expires: 01/05/23 BMI Readings from Last 2 Encounters: 01/05/22 : 25.61 kg/m 12/28/21 : 25.90 kg/m PAST MEDICAL HISTORY Diagnosis Date Abnormal glandular Papanicolaou smear of cervix 04/23/2005 Abn. 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 Indications for study: VELIA suspected without comorbid medical or sleep disorders Sleep study to be performed: Home Sleep Apnea Test (HSAT) Special instructions: None-follow laboratory protocol [facility] Staff Note: I have read the above protocol, edited as needed, and agree to the plan. Lauren Paz MD 11:31 AM, 01/15/2022 * Yohana Mccormack - 01/13/2022 12:40 PM EST January 13, 2022 An order has been received for Home Sleep Apnea Test (HSAT) from [facility] Staff. Visit prep complete. Comments :No The sleep study is scheduled for 01/16. Insurance: Payor: MEDICARE / Plan: MEDICARE A AND B / Product Type: Medicare / Payer/Plan Subscr Sex Relation Sub. Ins. ID Effective Group Num 1. [place]ARE - [place]* JAZ DUKES 1955 Female Self [id number] 07/06/[address] ANTH - [facility]* JAZ DUEKS 1955 Female Self [id number] [birth year] [id number] Yohana Mccormack documented in this encounterMari[facility]11-17-2022 History of Present illness Narrative* Marylu Banks MD - 01/21/2022 3:57 PM EST This consult is seen at the kind request of Dr. Micah High of internal medicine, and my final recommendations will be communicated to the requesting health care provider by way of shared electronicmedical record. This note is formatted with the impression and plan first and the history and physical to follow. IMPRESSION 66-year-old female with sleep disordered breathing, left nasal vestibular stenosis, right caudal septal deviation and septal ulcer. RECOMMENDATION/PLAN For patient's septal ulcer, I recommend starting her on mupirocin ointment twice daily for 1 month.I will see her back in 1 month for follow-up. If she still has a right septal ulcer at that time, Irecommend a biopsy. For her nasal vestibular stenosis, I recommend obtaining a CT scan of her sinuses to rule out sinonasal disease as a cause of her stenosis. I did inform the patient that lysing the scar between the septum and inferior turbinate will be the only treatment option for her vestibular stenosis at this time. There is a good chance that the scar could return despite surgery. Patient will think about her options and let me know if she wishes to proceed. For her caudal septal deviatio n, I do not recommend any intervention unless the vestibular stenosis is addressed. For sleep disordered breathing, if her sleep study shows that she has sleep apnea, I recommend referral to sleep medicine to initiate CPAP. Chief Complaint Possible sleep apnea, nasal obstruction, nasal ulcer. History of Present Illness Jaz Dukes is a 66 year old female present for evaluation of possible obstructive sleep apnea and nasal obstruction. Patient stated that she has longstanding history of snoring and pauses in breathing. Patient had a home sleep study yesterday which has not returned. Patient also complaining of longstanding history of nasal suction for many years. She stated that she has history of nasal bone fracture many years ago as a child and has difficulty breathing through her nose mostly on the left side. She uses Flonase in her nose without significant improvement. Patient did see an ENT a few years ago a while back and was told that she had a staph infection in the left side of her nose. Forthe last 3 weeks, patient also noticed a small ulcer on the right side of her nasal septum. She hasbeen using Neosporin and hydrogen peroxide on the ulcer. She does pick at the crusting performed ontop of the ulcer. PAST MEDICAL HISTORY Diagnosis Date Abnormal glandular Papanicolaou smear of cervix 04/23/2005 Abn. 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 Hypertension Internal hemorrhoids without mention of complication Irregular menstrual cycle perimenopausal bleeding Snoring PAST SURGICAL HISTORY Procedure Laterality Date BIOPSY BREAST OPEN INCISIONAL 11/28/2000 left breast COLONOSCOPY FLX DX W/COLLJ SPEC WHEN PFRMD 05/17/2006 COLONOSCOPY FLX DX W/COLLJ SPEC WHEN PFRMD 06/16/2017 Colonoscopy COLPOSCOPY CERVIX UPPER/ADJACENT VAGINA 07/15/2000 Colposcopy CONIZATION CERVIX W/WO D&C RPR ELTRD EXC 08/03/2000 LEEP-Cervix LIG/TRNSXJ FLP TUBE ABDL/VAG APPR UNI/BI 05/27/1992 Tubal ligation, BPS OTHER MOHS- removal of squamous cells PAST SURGICAL HISTORY OF 1981 Broken Nose Repair PAST SURGICAL HISTORY OF 09/17/2004 EMB PAST SURGICAL HISTORY OF 09/2004 BONE DENSITTY SKIN BX, 1 LESION 12/15/2000 basal cell CA, on face SKIN EXCISION 12/23/2021 excision skin cyst lower back TONSILLECTOMY PRIMARY/SECONDARY <AGE 12 Tonsillectomy FAMILY HISTORY Problem Relation Age of Onset Diabetes Father non-insulin Cancer Father Bladder and Basil Cell Cancer Paternal Grandmother Ovarian age 45 Lipids Mother Hyperlipidemia,stroke Heart Mother 65 [place] Hypertension Mother Arthritis Mother Cancer Mother Skin cancer - unsure of cell type other (heartburn) Son other (Other) Other No breast/uterine/colon cancer other (melanoma) Daughter CURRENT OUTPATIENT MEDICATIONS Current Outpatient Medications on File Prior to Visit Medication Sig ezetimibe (ZETIA) 10 mg tablet Take 1 tablet by mouth once daily. lisinopril (ZESTRIL, PRINIVIL) 5 mg tablet Take 1 tablet by mouth once daily. sertraline (ZOLOFT) 50 mg tablet Take 1 tablet by mouth once daily. LORazepam (ATIVAN) 0.5 mg Take 1 tablet by mouth three times daily as needed (anxiety) for up to 180 days. estradiol (ESTRACE) 0.01 % (0.1 mg/gram) vaginal cream Use 1g vaginally nightly for 2 weeks. Then decrease to 2 times per week ongoing. fluticasone (FLONASE) 50 mcg/actuation nasal spray Use 2 Sprays in each nostril once daily. Rinse mouth after use. EPINEPHrine (EPIPEN) 0.3 mg/0.3 mL auto-injector Inject 0.3 mL intramuscularly as directed. use as directed for allergic reaction. Seek emergent medical immediately after use. No current facility-administered medications on file prior to visit. ALLERGIES ALLERGIES Allergen Reactions Allergen Ext-Venom-* Mold Propolis (Bee Glue) Seasonal [Other] The remainder of the patient's history and review of systems is on the outpatient questionaire which was reviewed by me and placed in the outpatient chart. PHYSICAL EXAMINATION Appearance: General examination of the patient's external face, head and neck reveals no abnormalities. The patient is not retrognathic The patient's voice is strong and clear and they communicate easily. Ears: Exam of the ears revealed normal appearing external auditory canals, tympanic membranes, and middle ears. No signs of infection or fluid were seen. Nose: External nasal exam was normal. Throat: There were no lesions to visualization or palpation of the lips, cheeks, gums, floor of mouth, tongue, hard and soft palate, tonsillar pillars or posterior pharyngeal wall. The patient is a Turcios Tongue Position 3 and has surgically absent tonsils. Neck: Palpation of the neck revealed no adenopathy, salivary gland masses or asymmetry, or thyroid masses or enlargement. Procedure In order to assess the patient's complaint of nasal obstruction and nasal ulcer, nasal endoscopy was performed. Consent: verbal Anesthesia: topical lidocaine and Afrin After spraying the nose with topical 4% lidocaine and Afrin the nasal endoscope was passed. Findings: Septum was caudally deviated to the right side. Patient has a small ulcer with surface crusting in the skin of the columella on the right side. There was significant synechiae formed between the caudal septum and the inferior turbinate on the left side causing approximately 80% nasal obstruction. The synechiae extends superiorly to the internal nasal valve. Only the inferior portion of the nasal passage is patent. Right middle meatus was clear without any pus or polyps. Nasopharynx was patent. Marylu Banks MD documented in this encounterM[facility]11-01-2022 History of Present illness Narrative* Micah High MD - 01/05/2022 11:06 AM EDT Reason for Visit Patient presents with: Recheck: sleep anea, snoring, stops breathing while asleep Jaz Dukes is a 66 year old female who presents here today for Above Complaints.. Health Maintenance BP CONTROLLED (<130/80) PNEUMOCOCCAL: 65+(2 - PPSV23 if available, else PCV20) ADVANCE DIRECTIVE DISCUSSION HPI Had a cyst of the back removed recently it, was benign for sure, but it was infected and she neededabx for a while and now everything seems fine. Sleep apnea: patient notes feeling tired every morning when she wakes up. notes she snores a lot, moves around a lot at night, he has witnessed apnea and gasps. Not just by but by OLIVIA. She is sleeping in the afternoons a lot, she feels tired during the day and feels lethargic a lot every morning. Fatigue and brain fog are constant for a while. She does note blocked notes along with it. Her nose is very sore. Patient gets some of the nose strips and they do open her nose up. No problem-specific Assessment & Plan notes found for this encounter. PAST MEDICAL HISTORY Diagnosis Date Abnormal glandular Papanicolaou smear of cervix 04/23/2005 Abn. 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 Hypertension Internal hemorrhoids without mention of complication Irregular menstrual cycle perimenopausal bleeding Snoring PAST SURGICAL HISTORY Procedure Laterality Date BIOPSY BREAST OPEN INCISIONAL 11/28/2000 left breast COLONOSCOPY FLX DX W/COLLJ SPEC WHEN PFRMD 05/17/2006 COLONOSCOPY FLX DX W/COLLJ SPEC WHEN PFRMD 06/16/2017 Colonoscopy COLPOSCOPY CERVIX UPPER/ADJACENT VAGINA 07/15/2000 Colposcopy CONIZATION CERVIX W/WO D&C RPR ELTRD EXC 08/03/2000 LEEP-Cervix LIG/TRNSXJ FLP TUBE ABDL/VAG APPR UNI/BI 05/27/1992 Tubal ligation, BPS OTHER MOHS- removal of squamous cells PAST SURGICAL HISTORY OF Broken Nose Repair PAST SURGICAL HISTORY OF 09/17/2004 EMB PAST SURGICAL HISTORY OF 09/2004 BONE DENSITTY SKIN BX, 1 LESION 12/15/2000 basal cell CA, on face SKIN EXCISION 12/23/2021 excision skin cyst lower back TONSILLECTOMY PRIMARY/SECONDARY <AGE 12 Tonsillectomy FAMILY HISTORY Problem Relation Age of Onset Diabetes Father non-insulin Cancer Father Bladder and Basil Cell Cancer Paternal Grandmother Ovarian age 45 Lipids Mother Hyperlipidemia,stroke Heart Mother 65 [place] Hypertension Mother Arthritis Mother Cancer Mother Skin cancer - unsure of cell type other (heartburn) Son other (Other) Other No breast/uterine/colon cancer other (melanoma) Daughter Social History Tobacco Use Smoking status: Never Smokeless tobacco: Never Vaping Use Vaping Use: Never used Substance Use Topics Alcohol use: Yes Alcohol/week: 5.0 standard drinks Types: 2 Glasses of Wine (5oz) per week Comment: 3 x per week or less Drug use: No Past medical history, appointments, medications, allergies reviewed. Pertinent Lab/Diagnostic Studies are reviewed and discussed today Current Outpatient Medications: ezetimibe (ZETIA) 10 mg tablet lisinopril (ZESTRIL, PRINIVIL) 5 mg tablet sertraline (ZOLOFT) 50 mg tablet LORazepam (ATIVAN) 0.5 mg estradiol (ESTRACE) 0.01 % (0.1 mg/gram) vaginal cream fluticasone (FLONASE) 50 mcg/actuation nasal spray EPINEPHrine (EPIPEN) 0.3 mg/0.3 mL auto-injector Review of Systems CONSTITUTIONAL: No fevers, chills night sweats, unintended weight loss CARDIOVASCULAR: No chest pain, dyspnea, palpitations, orthopnea, PND, ankle edema. PULM: No dyspnea, unexplained cough. GI: No dysphagia/odynophagia, problematic reflux, constipation, diarrhea, changes in stool habits, hematochezia, melena. : No new urinary complaints, including dysuria, gross hematuria or pyuria. NEURO: No new balance problems, peripheral weakness/paresthesias or numbness of concern. Physical Exam BP 122/74 (BP Site: Left Arm, BP Position: Sitting, BP Cuff Size: Large Adult) Pulse 68 Temp 36.9 C (98.5 F) Resp 12 Ht 157.5 cm (5' 2) Wt 63.5 kg (140 lb) LMP 12/12/2009 SpO2 98% BMI 25.61 kg/m General appearance: Well appearing, alert, in no acute distress, well nourished. Skin: Skin color, texture, turgor normal, no suspicious rashes or lesions Head: Normocephalic, no masses, lesions, tenderness or abnormalities Eyes: Anicteric sclera. Pupils are equally round and reactive to light. Extraocular movements are intact. Lungs: Lungs clear to auscultation. No wheezing, rhonchi, rales Heart: RRR without murmur, gallop, or rubs. Extremities: No deformities, edema, skin discoloration, clubbing or cyanosis. Good capillary refill. ASSESSMENT/PLAN: 1. Sleep apnea, unspecified type - ICD9: 780.57, ICD10: G47.30 (primary diagnosis) - HOME SLEEP APNEA TEST (HSAT) - CONSULT TO SLEEP MEDICINE - ADULT - CONSULT TO ENT 2. Stuffy nose - ICD9: 478.19, ICD10: R09.81 Consult to ent to see if any recommendation for sleep apnea - CONSULT TO ENT Micah High MD documented in this encounterMarietta [facility]10-24-2022 History of Present illness Narrative* Batsheva Garcia MD - 12/28/2021 6:26 PM EDT FOLLOW UP VISIT NAME: Jaz Ledesma [facility] NO.: [id number] DATE OF SERVICE: 12/28/2021 : 1955 REFERRING PHYSICIAN: Micah High MD Jaz is status post excision of infected sebaceous cyst of lower back. Pathology reveals ruptured epidermoid cyst. VITALS: Blood pressure 142/78, pulse 69, temperature 36.7 C (98.1 F), resp. rate 14, height 157.5 cm (5' 2), weight 64.2 kg (141 lb 9.6 oz), last menstrual period 12/12/2009, SpO2 100 %. On examination, wound is healing well with no evidence of infection. Suture removed and steristripsplaced. Assessment IMPRESSION: status post excision of infected sebaceous cyst PLAN: Keep area clean and dry. Patient is instructed to make an appointment to return to clinic if any worsening signs/symptoms. Patient will return to her PCP for medical care. Patient acknowledges above. Diagnoses: (Z98.890) Status post skin and subcutaneous tissue surgery (primary encounter diagnosis) I have confirmed and edited as necessary, the PFSH and ROS obtained by others. Batsheva Garcia MD documented in this encounterMarietta [facility] Clinic10-19-2022 Procedure note* Batsheva Garcia MD - 12/23/2021 5:52 PM EDTProcedure(s): REM LESION FACE,EAR,EYE 1.1-2 CM Pre-Procedure Diagnose(s): Infected sebaceous cyst Post-Procedure Diagnose(s): Infected sebaceous cyst Description of procedure: After informed consent was obtained, patient was brought to the procedure room. Appropriate time out protocol was followed. Patient was placed in the prone position. The site of the lesion was then cleansed with a sterile surgical skin preparation. Appropriate sterile surgical drapes were placed. The skin and subcutaneous tissues at the site were then infiltrated with local anesthetic. A skin incision was made over the lesion with a 15 blade scalpel. The incision was carried down to the subcutaneous tissues. Dissection was done to separate the skin lesion from the surrounding subcutaneous tissues. The lesion was excised sharply down to the subcutaneous tissues. The lesion was 1.5 cm in size. The tissue was then removed and placed in formalin to be forwarded to pathology for analysis. Hemostasis was controlled by pressure. The skin edges were then reapproximated with interrupted 3-0 nylon suture in a simple fashion. Sterile dressing was applied. Patient tolerated procedure well. Complications: none EBL: minimal documented in this encounterMarietta [facility]10-19-2022 History of Present illness Narrative* Batsheva Garcia MD - 12/23/2021 5:51 PM EDT Here for removal of lower back infected sebaceous cyst. Patient to follow up with me early next week for wound check. * Yamilet Doran RN - 12/23/2021 1:59 PM EDT UNIVERSAL PROTOCOL / SAFETY CHECKLIST Procedure to be Performed: Excision of infected skin cyst of lower back Sign In: A Moment of CARE was completed. Personnel directly involved with the procedure wore the appropriate PPE (Personal Protective Equipment). No special equipment needed. Patient/Surrogate Stated/Verified: PATIENT VERIFIED(optional for EMERGENT procedures): Patient name, Date of , Relevant allergies, and The intended procedure Time Out Communication: Intended patient and procedure match the source documents. Consent documented and matches the intended procedure. No relevant labs, photos, and/or imaging studies were applicable for review. Correct side/site marked and visible. Medications required for procedure verified. No fire risk assessment and interventions applicable. No implant(s) inserted. Sign Out: SIGN OUT (optional for EMERGENT procedures): All specimen containers correctly labeled. No instruments, equipment or retained foreign bodies applicable. Post-procedure follow-up management communicated and Plan of Care Visit completed when applicable. Yamilet Doran RN documented in this encounterM[facility]-19-[facility]22 Instructions* Patient Instructions* Yamilet Doran RN - 12/23/2021 2:15 PM EDT The following instructions are important for you related to your office visit today with the [facility] General Surgeons. Instructions After SKIN EXCISION-SUTURES If the dressing becomes soaked or had significant drainage, the dressing should be reinforced. If there is minor bleeding from this skin edge, you should hold pressure on the incision until the bleeding stops. If there is continued bleeding, you should contact our office immediately. If the wound shows signs of redness, inflammation, or purulent drainage, you should contact our office immediately. You should keep the wound dry. After that time, you may wash the wound with gentle soap and water. The wound should not be immersed in a pool, bathtub, or even hot tub. We prefer to check the incision and remove the stitches in our office when ready. You can take Tylenol and Ibuprofen for pain. Please make an appointment to return to our office in 5 days. Please do not remove the stitches yourself without approval from our office. If you note any additional difficulties, questions, or concerns, you should contact our office immediately @ [phone] and ask to be transferred to the General Surgery department. documented in this encounterM[facility]10-10-2022 History of Present illness Narrative* Batsheva Garcia MD - 12/14/2021 7:48 PM EDT Jaz Dukes 1955 REFERRING PHYSICIAN: Micah High MD CHIEF COMPLAINT: Consult (Sebaceous cyst lower back) HPI: The patient is a 66 year old female presents with skin lesion of lower back. She has noted for 2-3 months enlarging and then more recently has become painful when pressure applied to area She now presents with an infected sebaceous cyst of her lower back PAST MEDICAL HISTORY Diagnosis Date Abnormal glandular Papanicolaou smear of cervix 04/23/2005 Abn. 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 Hypertension Internal hemorrhoids without mention of complication Irregular menstrual cycle perimenopausal bleeding Snoring PAST SURGICAL HISTORY Procedure Laterality Date BIOPSY BREAST OPEN INCISIONAL 11/28/2000 left breast COLONOSCOPY FLX DX W/COLLJ SPEC WHEN PFRMD 05/17/06 COLONOSCOPY FLX DX W/COLLJ SPEC WHEN PFRMD 06/16/2017 Colonoscopy COLPOSCOPY CERVIX UPPER/ADJACENT VAGINA 07/15/2000 Colposcopy CONIZATION CERVIX W/WO D&C RPR ELTRD EXC 08/03/2000 LEEP-Cervix LIG/TRNSXJ FLP TUBE ABDL/VAG APPR UNI/BI 05/27/1992 Tubal ligation, BPS OTHER MOHS- removal of squamous cells PAST SURGICAL HISTORY OF Broken Nose Repair PAST SURGICAL HISTORY OF 09/17/2004 EMB PAST SURGICAL HISTORY OF 09/2004 BONE DENSITTY SKIN BX, 1 LESION 12/15/2000 basal cell CA, on face TONSILLECTOMY PRIMARY/SECONDARY <AGE 11 Tonsillectomy Current Outpatient Medications Medication Sig ezetimibe (ZETIA) 10 mg tablet Take 1 tablet by mouth once daily. lisinopril (ZESTRIL, PRINIVIL) 5 mg tablet Take 1 tablet by mouth once daily. sertraline (ZOLOFT) 50 mg tablet Take 1 tablet by mouth once daily. LORazepam (ATIVAN) 0.5 mg Take 1 tablet by mouth three times daily as needed (anxiety) for up to 180 days. estradiol (ESTRACE) 0.01 % (0.1 mg/gram) vaginal cream Use 1g vaginally nightly for 2 weeks. Then decrease to 2 times per week ongoing. fluticasone (FLONASE) 50 mcg/actuation nasal spray Use 2 Sprays in each nostril once daily. Rinse mouth after use. EPINEPHrine (EPIPEN) 0.3 mg/0.3 mL auto-injector Inject 0.3 mL intramuscularly as directed. use as directed for allergic reaction. Seek emergent medical immediately after use. cephALEXin (KEFLEX) 500 mg capsule Take 1 capsule by mouth four times daily for 5 days. ALLERGIES: Allergen Lui-Kdvgf-Sgijj Bee, Mold, Propolis (Bee Glue), and Seasonal [Other] PERSONAL HISTORY: Social History Tobacco Use Smoking status: Never Smokeless tobacco: Never Vaping Use Vaping Use: Never used Substance Use Topics Alcohol use: Yes Alcohol/week: 5.0 standard drinks Types: 2 Glasses of Wine (5oz) per week Comment: 3 x per week or less Drug use: No FAMILY HISTORY Problem Relation Age of Onset Diabetes Father non-insulin Cancer Father Bladder and Basil Cell Cancer Paternal Grandmother Ovarian age 45 Lipids Mother Hyperlipidemia,stroke Heart Mother 65 [place] Hypertension Mother Arthritis Mother Cancer Mother Skin cancer - unsure of cell type other (heartburn) Son other (Other) Other No breast/uterine/colon cancer other (melanoma) Daughter The review of systems data was entered by the nurse and reviewed by pr Nursing Notes: Yamilet Doran RN 12/14/2021 10:19 AM Signed REVIEW OF SYSTEMS: General: The patient denies fatigue, denies weight loss, denies weight gain, denies feeling hot, and denies feelings of cold. Eyes: The patient denies glaucoma, denies eye injury/surgery, wears glasses or contacts. Ear/Nose/Throat: The patient NOTES allergies, denies hayfever, denies ear infections, and denies bloody noses. Cardiovascular: The patient denies chest pain, denies heart disease, NOTES high blood pressure,denies cardiac stent, denies prior heart attack, denies irregular heart beat, NOTES high cholesterol, denies poor circulation, denies heart failure, other cardiac issues, denies claudication, denies cold feet, denies peripheral arterial stent. Respiratory: The patient denies tuberculosis, denies pneumonia, denies frequent cough, denies pulmonary embolism, denies shortness of breath, and denies coughing up blood. Gastrointestinal: The patient denies difficulty swallowing, denies acid reflux, denies ulcers, denies vomiting, denies jaundice/hepatitis, denies gallbladder problems, denies black or tarry stools, NOTES hemorrhoids, denies bleeding from rectum, denies diverticulitis, denies constipation, denies diarrhea, denies loss of stool control, and denies hernias. Kidney/Bladder: The patient denies kidney stones, denies urine infections, and denies bloody urine. Skin: The patient NOTES a history of skin cancer, denies bleeding/changing moles, and denies a history of skin rash. Neurologic: The patient denies a history of epilepsy/convulsions, denies headaches, denies head/spinal injuries, and denies stroke/TIA. Psychiatric: The patient denies psychiatric medications, denies depression, and denies voices, denies substance abuse. Endocrine: The patient denies thyroid disorders, denies diabetes, and denies hormonal problems. Hematologic: The patient denies a history of bruising, denies bleeding, and denies anemia, denies blood clots. Infections: The patient denies a history of measles and mumps, denies rheumatic fever, and denies sexually transmitted diseases. Musculoskeletal: The patient denies back pain/injury, denies back problems, denies sciatica, deniesknee/foot trouble, denies arthritis, or denies gout. When was patient's last Mammogram screening? 2021 Last Colonoscopy: 2017 Yamilet Doran RN PHYSICAL EXAMINATION: General: The patient is 66 year old female, well nourished, well hydrated in no acute distress. Thepatient is oriented to time, place, and person. VITALS: Blood pressure 128/82, pulse 78, temperature 36.7 C (98 F), height 157.5 cm (5' 2), xkikvv86.6 kg (140 lb 3.2 oz), last menstrual period 12/12/2009, SpO2 99 %. Body mass index is 25.64 kg/m. Head: Normal cephalic, atraumatic Eyes: pupils are equally round, sclera are clear/anicteric Neck is supple with no tracheal deviation Respiratory: Normal respiratory excursion and pattern. Abdominal exam: benign Back: lower back area with 2 cm skin lesion c/w infected sebaceous cyst Extremities: no clubbing, cyanosis or edema. Neuro: non focal Psych: normal mood Assessment IMPRESSION: infected sebaceous cyst PLAN: I have discussed the above with the patient. I have offered excision of this lesion I have explained the procedure to the patient. To be done in the office using local anesthesia. I have counseled the patient as to the risks of the procedure, including but not limited to: infection, bleeding, injury to any blood vessels/nerves, scar tissue, etc. - the patient understands. The patient wishes to proceed. I have answered all questions to the patient s satisfaction and the patient has no further questions. I have confirmed and edited as necessary, the PFSH and ROS obtained by others. Consultation requested by Dr. Micah High for an opinion regarding patient's sebaceous cyst. My final recommendations will be communicated back to the requesting physician by way of shared Medical record or letter to requesting physician via US mail. . Diagnoses: (L98.9) Skin lesion (L72.3) Sebaceous cyst (E78.00) Pure hypercholesterolemia Return to Clinic: The patient will be scheduled in the office for the above. Medical Decision Making: Risk: Low: Low risk from testing/treatment Medical Decision Making Level: 2 - Straightforward Batsheva Garcia MD documented in this encounterM[facility]10-10-2022 Nurse Note* Yamilet Doran RN - 12/14/2021 10:13 AM EDT REVIEW OF SYSTEMS: General: The patient denies fatigue, denies weight loss, denies weight gain, denies feeling hot, and denies feelings of cold. Eyes: The patient denies glaucoma, denies eye injury/surgery, wears glasses or contacts. Ear/Nose/Throat: The patient NOTES allergies, denies hayfever, denies ear infections, and denies bloody noses. Cardiovascular: The patient denies chest pain, denies heart disease, NOTES high blood pressure,denies cardiac stent, denies prior heart attack, denies irregular heart beat, NOTES high cholesterol, denies poor circulation, denies heart failure, other cardiac issues, denies claudication, denies cold feet, denies peripheral arterial stent. Respiratory: The patient denies tuberculosis, denies pneumonia, denies frequent cough, denies pulmonary embolism, denies shortness of breath, and denies coughing up blood. Gastrointestinal: The patient denies difficulty swallowing, denies acid reflux, denies ulcers, denies vomiting, denies jaundice/hepatitis, denies gallbladder problems, denies black or tarry stools, NOTES hemorrhoids, denies bleeding from rectum, denies diverticulitis, denies constipation, denies diarrhea, denies loss of stool control, and denies hernias. Kidney/Bladder: The patient denies kidney stones, denies urine infections, and denies bloody urine. Skin: The patient NOTES a history of skin cancer, denies bleeding/changing moles, and denies a history of skin rash. Neurologic: The patient denies a history of epilepsy/convulsions, denies headaches, denies head/spinal injuries, and denies stroke/TIA. Psychiatric: The patient denies psychiatric medications, denies depression, and denies voices, denies substance abuse. Endocrine: The patient denies thyroid disorders, denies diabetes, and denies hormonal problems. Hematologic: The patient denies a history of bruising, denies bleeding, and denies anemia, denies blood clots. Infections: The patient denies a history of measles and mumps, denies rheumatic fever, and denies sexually transmitted diseases. Musculoskeletal: The patient denies back pain/injury, denies back problems, denies sciatica, deniesknee/foot trouble, denies arthritis, or denies gout. When was patient's last Mammogram screening? 2021 Last Colonoscopy: 2017 Yamilet Doran RN documented in this [facility]10-01-2022 History of Present illness Narrative* Micah High MD - 12/05/2021 9:37 AM EDT Reason for Visit Patient presents with: Mass: Lump on R side mid back Jaz Dukes is a 66 year old female who presents here today for Above Complaints.. Health Maintenance PNEUMOCOCCAL: 65+(2 - PPSV23 or PCV20) ADVANCE DIRECTIVE DISCUSSION INFLUENZA(1) HPI Patient has a lump in the back which is growing, it is in the right lower back , para spinal at around L5 and S1. She noticed it 6 months ago, and it has grown a little. No pain or itching, it is a little bit and it is not a lot. Meseret when she wears clothes. Has h/o basal cell cancer. She is on zoloft for depression but over all she is doing fine. Patient is working well to control what is happening. Hyperlipidemia: she is trying to main a low cholesterol diet. Cheese, is an issue for her her, she is trying to cut back on it. She eats yogurt, granola, bananas , low fat yogurt, she does not do as much of regular butter. Does not eat much pork at all. Patient tries to eat chicken, tries to eat some fish. Her bmi is normal, she is exercising on a daily basis. The 10-year ASCVD risk score (Josue DIAS, et al., 2019) is: 9.1% Values used to calculate the score: Age: 66 years Sex: Female Is Non- : No Diabetic: No Tobacco smoker: No Systolic Blood Pressure: 126 mmHg Is BP treated: Yes HDL Cholesterol: 69 mg/dL Total Cholesterol: 246 mg/dL No problem-specific Assessment & Plan notes found for this encounter. PAST MEDICAL HISTORY Diagnosis Date Abnormal glandular Papanicolaou smear of cervix 04/23/2005 Abn. 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 Hypertension Internal hemorrhoids without mention of complication Irregular menstrual cycle perimenopausal bleeding Snoring PAST SURGICAL HISTORY Procedure Laterality Date BIOPSY BREAST OPEN INCISIONAL 11/28/2000 left breast COLONOSCOPY FLX DX W/COLLJ SPEC WHEN PFRMD 05/17/06 COLONOSCOPY FLX DX W/COLLJ SPEC WHEN PFRMD 06/16/2017 Colonoscopy COLPOSCOPY CERVIX UPPER/ADJACENT VAGINA 07/15/2000 Colposcopy CONIZATION CERVIX W/WO D&C RPR ELTRD EXC 08/03/2000 LEEP-Cervix LIG/TRNSXJ FLP TUBE ABDL/VAG APPR UNI/BI 05/27/1992 Tubal ligation, BPS OTHER MOHS- removal of squamous cells PAST SURGICAL HISTORY OF Broken Nose Repair PAST SURGICAL HISTORY OF 09/17/2004 EMB PAST SURGICAL HISTORY OF 09/2004 BONE DENSITTY SKIN BX, 1 LESION 12/15/2000 basal cell CA, on face TONSILLECTOMY PRIMARY/SECONDARY <AGE 11 Tonsillectomy FAMILY HISTORY Problem Relation Age of Onset Diabetes Father non-insulin Cancer Father Bladder and Basil Cell Cancer Paternal Grandmother Ovarian age 45 Lipids Mother Hyperlipidemia,stroke Heart Mother 65 [place] Hypertension Mother Arthritis Mother Cancer Mother Skin cancer - unsure of cell type other (heartburn) Son other (Other) Other No breast/uterine/colon cancer other (melanoma) Daughter Social History Tobacco Use Smoking status: Never Smokeless tobacco: Never Vaping Use Vaping Use: Never used Substance Use Topics Alcohol use: Yes Alcohol/week: 5.0 standard drinks Types: 2 Glasses of Wine (5oz) per week Comment: 3 x per week or less Drug use: No Past medical history, appointments, medications, allergies reviewed. Pertinent Lab/Diagnostic Studies are reviewed and discussed today Current Outpatient Medications: lisinopril (ZESTRIL, PRINIVIL) 5 mg tablet LORazepam (ATIVAN) 0.5 mg estradiol (ESTRACE) 0.01 % (0.1 mg/gram) vaginal cream fluticasone (FLONASE) 50 mcg/actuation nasal spray EPINEPHrine (EPIPEN) 0.3 mg/0.3 mL auto-injector sertraline (ZOLOFT) 50 mg tablet Review of Systems CONSTITUTIONAL: No fevers, chills night sweats, unintended weight loss CARDIOVASCULAR: No chest pain, dyspnea, palpitations, orthopnea, PND, ankle edema. PULM: No dyspnea, unexplained cough. GI: No dysphagia/odynophagia, problematic reflux, constipation, diarrhea, changes in stool habits, hematochezia, melena. : No new urinary complaints, including dysuria, gross hematuria or pyuria. NEURO: No new balance problems, peripheral weakness/paresthesias or numbness of concern. Physical Exam BP 126/72 Pulse 68 Resp 16 Wt 63.5 kg (140 lb) LMP 12/12/2009 BMI 25.61 kg/m General appearance: Well appearing, alert, in no acute distress, well nourished. Skin: Skin color, texture, turgor normal, no suspicious rashes or lesions Head: Normocephalic, no masses, lesions, tenderness or abnormalities Eyes: Anicteric sclera. Pupils are equally round and reactive to light. Extraocular movements are intact. Lungs: Lungs clear to auscultation. No wheezing, rhonchi, rales Heart: RRR without murmur, gallop, or rubs. Extremities: No deformities, edema, skin discoloration, clubbing or cyanosis. Good capillary refill. ASSESSMENT/PLAN: 1. Pure hypercholesterolemia with target low density lipoprotein (LDL) cholesterol less than 130 mg/dL - ICD9: 272.0, ICD10: E78.00 (primary diagnosis) Started on zetia and recheck in 3 months. 2. Skin lesion - ICD9: 709.9, ICD10: L98.9 - CONSULT TO GENERAL SURGERY 3. Sebaceous cyst - ICD9: 706.2, ICD10: L72.3 - CONSULT TO GENERAL SURGERY 4. Pure hypercholesterolemia - ICD9: 272.0, ICD10: E78.00 - CONSULT TO GENERAL SURGERY - LIPID PANEL BASIC - LIPID PANEL BASIC 5. Mild episode of recurrent major depressive disorder (HCC) - ICD9: 296.31, ICD10: F33.0 She is on zoloft Micah High MD documented in this encounterM[facility]08-24-2022 History of Present illness Narrative* Micah High MD - 10/28/2021 1:30 PM EDT Medicare Yearly Visit Medical B eligibilty date age 64 Date of last exam none in the past year. PAST MEDICAL HISTORY Diagnosis Date Abnormal glandular Papanicolaou smear of cervix 04/23/2005 Abn. 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 Hypertension Internal hemorrhoids without mention of complication Irregular menstrual cycle perimenopausal bleeding Snoring PAST SURGICAL HISTORY Procedure Laterality Date BIOPSY BREAST OPEN INCISIONAL 11/28/2000 left breast COLONOSCOPY FLX DX W/COLLJ SPEC WHEN PFRMD 05/17/06 COLONOSCOPY FLX DX W/COLLJ SPEC WHEN PFRMD 06/16/2017 Colonoscopy COLPOSCOPY CERVIX UPPER/ADJACENT VAGINA 07/15/2000 Colposcopy CONIZATION CERVIX W/WO D&C RPR ELTRD EXC 08/03/2000 LEEP-Cervix LIG/TRNSXJ FLP TUBE ABDL/VAG APPR UNI/BI 05/27/1992 Tubal ligation, BPS OTHER MOHS- removal of squamous cells PAST SURGICAL HISTORY OF Broken Nose Repair PAST SURGICAL HISTORY OF 09/17/2004 EMB PAST SURGICAL HISTORY OF 09/2004 BONE DENSITTY SKIN BX, 1 LESION 12/15/2000 basal cell CA, on face TONSILLECTOMY PRIMARY/SECONDARY <AGE 11 Tonsillectomy ALLERGIES: Allergen Tcm-Bryce-Kvwpn Bee, Mold, Propolis (Bee Glue), and Seasonal [Other] Medications reviewed: Yes FAMILY HISTORY Problem Relation Age of Onset Diabetes Father non-insulin Cancer Father Bladder and Basil Cell Cancer Paternal Grandmother Ovarian age 45 Lipids Mother Hyperlipidemia,stroke Heart Mother 65 [place] Hypertension Mother Arthritis Mother Cancer Mother Skin cancer - unsure of cell type other (heartburn) Son other (Other) Other No breast/uterine/colon cancer other (melanoma) Daughter SOCIAL HISTORY: Social History Tobacco Use Smoking status: Never Smokeless tobacco: Never Vaping Use Vaping Use: Never used Substance Use Topics Alcohol use: Yes Alcohol/week: 5.0 standard drinks Types: 2 Glasses of Wine (5oz) per week Comment: 3 x per week or less Drug use: No Jaz denies regular aerobic exercise. She watches her diet for sodium, low fat and low cholesterol most of the time. List of current specialists seen: none in the past year. Eye were checked this year. End of Live Planning discussed including patients advanced directive wishes: Yes I am willing to follow Jaz's advanced directives. PHQ-2 / Depression screen She in the past two weeks denies having felt down, depressed, hopeless, or with little interest or pleasure in doing things. PHQ-2 Score: 1 PHQ-9 Score: 4 Functional Ability/Safety Screen 1. Was the patient's timed Up and Go test unsteady or longer than 30 seconds? No 2. Does the patient need help with the phone, transportation, shopping,preparing meals, housework, laundry, medications or managing money? No 3. Does your home have rugs in the hallway, lack of grab bars in the bathroom, lack of handrails onthe stairs or have poor lighting? No Hearing Evaluation: normal PHYSICAL EXAM BP 112/64 (BP Site: Left Arm, BP Position: Sitting, BP Cuff Size: Large Adult) Pulse 70 Temp 36.6 C (97.8 F) Resp 12 Ht 157.5 cm (5' 2) Wt 63 kg (139 lb) LMP 12/12/2009 SpO2 97% BMI 25.42 kg/m Alert and oriented X 3: Body mass index is 25.42 kg/m . Visual acuity: ASSESSMENT/PLAN: 66 year old female The following prevention plan was discussed during the office visit and provided to the patient: - Lipid panel - Glaucoma screening Micah High MD Reason for Visit Patient presents with: Medicare Wellness Exam: refills Jaz Dukes is a 66 year old female who presents here today for Above Complaints.. Health Maintenance PNEUMOCOCCAL: 65+(2 - PPSV23 or PCV20) ADVANCE DIRECTIVE DISCUSSION HPI HTN: Compliant with medications. Denies any chest pain, palpitations, or edema. No SOB. Doesn't check BP at home generally. Careful with diet to avoid salt, trying to eat more fruits and vegetables, exercises regularly. HPL: Reviewed test results with patient , takes medications regularly , does not report side effects. Conscious to avoid red meats, full fat dairy and its by products. Exercising 3 to 5 times a week. She intentionally lost weight because she was watching more of what she was eating. She usually does not have beef etc. No problem-specific Assessment & Plan notes found for this encounter. PAST MEDICAL HISTORY Diagnosis Date Abnormal glandular Papanicolaou smear of cervix 04/23/2005 Abn. 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 Hypertension Internal hemorrhoids without mention of complication Irregular menstrual cycle perimenopausal bleeding Snoring PAST SURGICAL HISTORY Procedure Laterality Date BIOPSY BREAST OPEN INCISIONAL 11/28/2000 left breast COLONOSCOPY FLX DX W/COLLJ SPEC WHEN PFRMD 05/17/06 COLONOSCOPY FLX DX W/COLLJ SPEC WHEN PFRMD 06/16/2017 Colonoscopy COLPOSCOPY CERVIX UPPER/ADJACENT VAGINA 07/15/2000 Colposcopy CONIZATION CERVIX W/WO D&C RPR ELTRD EXC 08/03/2000 LEEP-Cervix LIG/TRNSXJ FLP TUBE ABDL/VAG APPR UNI/BI 05/27/1992 Tubal ligation, BPS OTHER MOHS- removal of squamous cells PAST SURGICAL HISTORY OF Broken Nose Repair PAST SURGICAL HISTORY OF 09/17/2004 EMB PAST SURGICAL HISTORY OF 09/2004 BONE DENSITTY SKIN BX, 1 LESION 12/15/2000 basal cell CA, on face TONSILLECTOMY PRIMARY/SECONDARY <AGE 12 Tonsillectomy FAMILY HISTORY Problem Relation Age of Onset Diabetes Father non-insulin Cancer Father Bladder and Basil Cell Cancer Paternal Grandmother Ovarian age 45 Lipids Mother Hyperlipidemia,stroke Heart Mother 65 [place] Hypertension Mother Arthritis Mother Cancer Mother Skin cancer - unsure of cell type other (heartburn) Son other (Other) Other No breast/uterine/colon cancer other (melanoma) Daughter Social History Tobacco Use Smoking status: Never Smokeless tobacco: Never Vaping Use Vaping Use: Never used Substance Use Topics Alcohol use: Yes Alcohol/week: 5.0 standard drinks Types: 2 Glasses of Wine (5oz) per week Comment: 3 x per week or less Drug use: No Past medical history, appointments, medications, allergies reviewed. Pertinent Lab/Diagnostic Studies are reviewed and discussed today Current Outpatient Medications: lisinopril (ZESTRIL, PRINIVIL) 5 mg tablet meloxicam (MOBIC) 15 mg tablet fluticasone (FLONASE) 50 mcg/actuation nasal spray estradiol (ESTRACE) 0.01 % (0.1 mg/gram) vaginal cream sertraline (ZOLOFT) 50 mg tablet EPINEPHrine (EPIPEN) 0.3 mg/0.3 mL auto-injector Review of Systems CONSTITUTIONAL: No fevers, chills night sweats, unintended weight loss CARDIOVASCULAR: No chest pain, dyspnea, palpitations, orthopnea, PND, ankle edema. PULM: No dyspnea, unexplained cough. GI: No dysphagia/odynophagia, problematic reflux, constipation, diarrhea, changes in stool habits, hematochezia, melena. : No new urinary complaints, including dysuria, gross hematuria or pyuria. NEURO: No new balance problems, peripheral weakness/paresthesias or numbness of concern. Physical Exam BP 112/64 (BP Site: Left Arm, BP Position: Sitting, BP Cuff Size: Large Adult) Pulse 70 Temp 36.6 C (97.8 F) Resp 12 Ht 157.5 cm (5' 2) Wt 63 kg (139 lb) LMP 12/12/2009 SpO2 97% BMI 25.42 kg/m General appearance: Well appearing, alert, in no acute distress, well nourished. Skin: Skin color, texture, turgor normal, no suspicious rashes or lesions Head: Normocephalic, no masses, lesions, tenderness or abnormalities Eyes: Anicteric sclera. Pupils are equally round and reactive to light. Extraocular movements are intact. Lungs: Lungs clear to auscultation. No wheezing, rhonchi, rales Heart: RRR without murmur, gallop, or rubs. Extremities: No deformities, edema, skin discoloration, clubbing or cyanosis. Good capillary refill. ASSESSMENT/PLAN: 1. Medicare annual wellness visit, subsequent - ICD9: V70.0, ICD10: Z00.00 (primary diagnosis) 2. Mixed hyperlipidemia - ICD9: 272.2, ICD10: E78.2 - LISINOPRIL 5 MG TABLET 3. Anxiety - ICD9: 300.00, ICD10: F41.9 - SERTRALINE 50 MG TABLET 4. Claustrophobia - ICD9: 300.29, ICD10: F40.240 - LORAZEPAM 0.5 MG TABLET 5. Essential hypertension - ICD9: 401.9, ICD10: I10 She does have her joint pain on and off. Does not have major memory issues Micah High MD [facility] Nurse Note* Helena Tomas LPN - 10/28/2021 1:09 PM EDT Eye exam with glasses right eye:20/25 left eye:20/30 [facility] See documented in this encounter[facility] Miscellaneous Notes* Telephone Encounter - Micah High MD - 10/26/2021 4:57 PM EDT Noted Thanks for the update * Telephone Encounter - Daja Mcgarry RN - 10/26/2021 8:19 AM EDT Patient's daughter Laine calls and states they have noticed that patient has been having some short term memory issues. Family is worried about this. Patient has appointment with provider on 10/28 and family wanted provider to know this. They know that patient will not mention this to provider at appointment. Daja Mcgarry RN documented in this encounterM[facility] History of Present illness Narrative* Belen Melvin MA - 09/23/2021 2:38 PM EDT POPULATION HEALTH NAVIGATION OUTREACH Action/FYI The patient scheduled an appointment for a Wellness visit Pt identified by name and : YES, via phone Outreach Outcome/Action Spoke to patient or caregiver: Patient scheduled Did you use a PCP flex slot to schedule this appointment? No Reason for Outreach HCC or suspected condition Payer: Payor: MEDICARE / Plan: MEDICARE A AND B / Product Type: Medicare / Care Gap Reviewed:: Annual Wellness visit Reminder: Reminder note to check Health Maintenance for items below Health Maintenance items due: PNEUMOCOCCAL: 64+(2 - PPSV23 or PCV20) due on 10/12/2020 ADVANCE DIRECTIVE DISCUSSION Never done Message Sent to Practice: No Navigation Signature: Belen Melvin MA September 23, 2021 2:38 PM documented in this encounterM[facility]-15-2022 Instructions* Patient Instructions* Shar Enamorado MD - 09/18/2021 4:05 PM EDT Calcium and Vitamin D Supplementation (from the National Institutes of Health Office of Dietary Supplements 2011) Calcium is required by the body for blood vessel, muscle, hormone and nerve functioning. Most of the body's calcium is stored in the bones and teeth where it supports structure and function. Bone is continuously broken down and reformed. When bone breakdown exceeds formation, especially in postmenopausal women, bone loss can increase the risk of osteoporosis and fractures. In addition to low calcium intake, women who smoke, have a family history of osteoporosis, are thin, or , orwho take certain medications such as cancer chemotherapy, seizure mediations and steroids are at increased risk of osteoporosis. The calcium requirements in women change with age. The National Institutes of Health (NIH) recommends: 1000mg elemental calcium for premenopausal women age 19-50 1200mg elemental calcium for postmenopausal women and all women over 50 Milk, yogurt, and cheese are rich natural sources of calcium and are the major food contributors inthe [place]. For example, 8oz of milk (whole, lowfat or skim) contains about 300mg calcium, 8oz of yogurt contains 415mg. Nondairy sources include salmon and sardines and vegetables, such as [place] cabbage, kale, and broccoli. Foods fortified with calcium include many fruit juices, tofu and cereals. For more food calcium content information, visit http://ods.od.nih.gov/factsheets/calcium. Calcium supplements come in several different forms. Remember that the recommendations are for millgrams (mg) of elemental calcium which may be less than the total weight of the supplement. The amount of elemental calcium is required to be printed on the label. Calcium carbonate is the least expensive form. It must be taken on a full stomach to be properly absorbed. Some patients may experience gas or constipation. Calcium phosphate and calcium citrate may be taken either with or without food and tend to have less side effects but are generally more expensive. Because of its ability to neutralize stomach acid, calcium carbonate is found in some [id number] antacid products, such as Tums and Rolaids . Depending on its strength, each chewable pill or softchew provides 200 to 400 mg of elemental calcium. The percentage of calcium absorbed depends on the total amount of elemental calcium consumed at onetime. Absorption is highest in doses <500mg. So a woman who takes 1,000mg/day of calcium from supplements should split the dose and take 500mg at two separate times during the day. Too much calcium can cause kidney stones, constipation, difficulty absorbing other nutrients and calcium buildup in blood vessels. Women under 50 should not exceed 2500mg/day (2000mg/day for women over 50) of calcium from food and supplements. Excessive alcohol and caffeine intake can inhibit absorption of calcium. Calcium can reduce the absorption of some medications if taken at the same time of day (bisphosphonates, thyroid medication, Phenytoin and other seizure medications, some antibiotics and iron supplements). Vitamin D promotes calcium absorption in the gut and maintains adequate blood levels of calcium andphosphate for normal bone growth and bone remodeling. Vitamin D also helps regulate cell growth as well as nerve, muscle and immune system function. Vitamin D is produced in the skin as a result of ultraviolet sunlight rays and must be altered in the liver and kidney to become its active form. Recommended intake according to the National Institutes of Health is 600 International Units (IU) for girls and women ages 1-70 and 800 IU for women over 70. Very few foods in nature contain vitamin D. The flesh of fatty fish (such as salmon, tuna, and mackerel) and fish liver oils are among the best sources. Small amounts of vitamin D are found in beef liver, cheese, mushrooms and egg yolks. Most people meet at least some of their vitamin D needs through exposure to sunlight. Season, time of day, length of day, cloud cover, smog, skin melanin content, and sunscreen are among the factors thataffect UV radiation exposure and vitamin D synthesis. Despite the importance of the sun for vitaminD synthesis, it is prudent to limit exposure of skin to sunlight and avoid tanning beds. UV radiation is a carcinogen responsible for most of the estimated 1.5 million skin cancers that occur annually in the [place]. Lifetime cumulative UV damage to skin is also responsible for some age-associated dryness and other cosmetic changes. In supplements and fortified foods, vitamin D is available in two forms, D2 (ergocalciferol) and D3(cholecalciferol). The two are equivalent at normal supplement doses. For women who require high supplement doses because of vitamin D deficiency, D3 may work better to raise blood levels. Some medications can prevent proper absorption of Vitamin D. These include laxatives, corticosteroids like prednisone, the seizure drugs phenobarbital and phenytoin, the weight-loss drug orlistat ( Xenical and AlliTM) and the cholesterol-lowering drug cholestyramine (Questran , LoCholest , and Prevalite ). Talk to your doctor about adjusting your recommended daily vitamin D dosage if you take these medications. You should not exceed 4000 mg of vitamin D supplementation daily unless specifically prescribed by your doctor. documented in this encounterM[facility]07-15-[facility]22 History of Present illness Narrative* Shar Enamorado MD - 09/18/2021 3:38 PM EDT Emilee is a 66 year old who presents for an annual gynecologic exam. Postmenopausal: Yes HRT use: No. 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 Hypertension Internal hemorrhoids without mention of complication Irregular menstrual cycle perimenopausal bleeding Snoring PAST SURGICAL HISTORY Procedure Laterality Date BX OF BREAST; INCISIONAL 11/28/2000 left breast CERVIX UTERI CONIZA LP ELCTRO EXCI 08/03/2000 LEEP-Cervix COLONOSCOP W/ OR W/O BRSH SPEC 05/17/06 COLONOSCOP W/ OR W/O BRS SPEC 06/16/2017 Colonoscopy COLPOSCOPY (VAGINOSCOPY) 07/15/2000 Colposcopy LIGATE FALLOPIAN TUBE 05/27/1992 Tubal ligation, BPS OTHER MOHS- removal of squamous cells PAST SURGICAL HISTORY OF Broken Nose Repair PAST SURGICAL HISTORY OF 09/17/2004 EMB PAST SURGICAL HISTORY OF 09/2004 BONE DENSITTY REMOVAL OF TONSILS,<12 Y/O Tonsillectomy SKIN BX, 1 LESION 12/15/2000 basal cell CA, on face FAMILY HISTORY Problem Relation Age of Onset Diabetes Father non-insulin Cancer Father Bladder and Basil Cell Cancer Paternal Grandmother Ovarian age 45 Lipids Mother Hyperlipidemia,stroke Heart Mother 65 [place] Hypertension Mother Arthritis Mother Cancer Mother Skin cancer - unsure of cell type other (heartburn) Son other (Other) Other No breast/uterine/colon cancer other (melanoma) Daughter SOCIAL HISTORY Social History Tobacco Use Smoking status: Never Smoker Smokeless tobacco: Never Used Vaping Use Vaping Use: Never used Substance Use Topics Alcohol use: Yes Alcohol/week: 5.0 standard drinks Types: 2 Glasses of Wine (5oz) per week Comment: 3 x per week or less Drug use: No REVIEW OF SYSTEMS Abdomen: No abdominal pain, nausea, vomiting, diarrhea, or constipation. No bloating, early satiety, indigestion, or increased flatulence. Bladder: No dysuria, gross hematuria, urinary frequency, urinary urgency, or incontinence Breast: No breast lumps, nipple d/c, overlying skin changes, redness or skin retraction Allergies and current medication updated:Yes EXAM: LMP 12/12/2009 GENERAL: pleasant, female in no apparent distress BREAST: soft, non-tender, symmetric, no dominant mass, normal nipple-areolar complex, no lymphadenopathy and no nipple discharge CHEST: Normal inspiratory effort ABDOMEN: soft, non-tender and no masses PELVIC: external genitalia normal, no vulvar lesions, no cervical lesions, normal appearing perineal body and perianal region; atrophic vagina BIMANUAL: uterus normal size, shape and consistency, no adnexal masses and non-tender RECTOVAGINAL: rectovaginal exam negative for any masses or nodularity. NEURO: alert and oriented x3,exam grossly non-focal EXTREMITIES: normal ASSESSMENT/PLAN: 1) Health maintenance: Pap done with reflex HPV - h/o LEEP in 2000, if normal will stop screening Mammogram - follow up imaging scheduled Nutrition, exercise and routine health maintenance exams reviewed. Colon cancer screening: up to date with screening BMD: up to date 2) Follow up one year or sooner as needed 3) Atrophic vaginitis - discussed R/B/A and will proceed with vaginal estrogen Shar Enamorado MD documented in this encounterM[facility]03-30-[facility]22 History of Present illness Narrative* Rosa Smith RDOH - 06/03/2021 2:00 PM EDT Radiology Service Progress Note PATIENT NAME: Jaz Dukes DATE OF SERVICE: June 03, 2021 TIME: 2:15 PM PATIENT IDENTITY VERIFICATION COMPLETED USING TWO (2) IDENTIFIERS: Name and Date of confirmedby patient verbally. FALL SCREENING: Has the patient had 2 falls in the last year or 1 fall with injury or currently using an Ambulatory Assistive Device (Walker, Cane, Wheelchair, Crutches, etc.)? No PATIENT GENDER DATA: Female. status: : No status: N/A PATIENT RELEVANT IMPLANT DATA REVIEWED: Not Applicable RADIOLOGY DEPARTMENT: Ultrasound PERIPHERAL IV DATA: Not applicable SIGNED BY: Rosa Smith RDMS RVT June 03, 2021 2:15 PM documented in this encounterM[facility]03-30-2022 Procedure note* Afua Oseguera - 06/03/2021 1:30 PM EDT Radiology Service Progress Note PATIENT NAME: Jaz Dukes DATE OF SERVICE: June 03, 2021 TIME: 1:47 PM PATIENT IDENTITY VERIFICATION COMPLETED USING TWO (2) IDENTIFIERS: Name and Date of confirmedby patient verbally. FALL SCREENING: Has the patient had 2 falls in the last year or 1 fall with injury or currently using an Ambulatory Assistive Device (Walker, Cane, Wheelchair, Crutches, etc.)? No PATIENT GENDER DATA: Female. status: : No status: NO. PATIENT RELEVANT IMPLANT DATA REVIEWED: Not Applicable RADIOLOGY DEPARTMENT: Mammography PERIPHERAL IV DATA: Not applicable SIGNED BY: Afua Oseguera June 03, 2021 1:47 PM [facility] Diagnosis Abnormal screening mammogram Abnormal mammogram, unspecified [facility]* Diagnosis Abnormal screening mammogram Abnormal mammogram, unspecified documented in this encounter [facility]* Diagnosis Encounter for gynecological examination without abnormal finding- Primary Routine gynecological examination Encounter for screening mammogram for malignant neoplasm of breast Other screening mammogram Encounter for screening for malignant neoplasm of cervix Screening for malignant neoplasm of the cervix [facility]* Diagnosis Mixed hyperlipidemia [facility]* Diagnosis Medicare annual wellness visit, subsequent- Primary Routine general medical examination at a health care facility Mixed hyperlipidemia Anxiety Anxiety state, unspecified Claustrophobia Other isolated or specific phobias Essential hypertension Unspecified essential hypertension [facility]* Diagnosis Pure hypercholesterolemia with target low density lipoprotein (LDL) cholesterol less than 130 mg/dL- Primary Skin lesion Unspecified disorder of skin and subcutaneous tissue Sebaceous cyst Pure hypercholesterolemia Mild episode of recurrent major depressive disorder (HCC) [facility] Skin lesion Unspecified disorder of skin and subcutaneous tissue Sebaceous cyst Pure hypercholesterolemia [facility]* Diagnosis Infected cyst of skin- Primary Sebaceous cyst [facility]* Diagnosis Status post skin and subcutaneous tissue surgery- Primary Other postprocedural status [facility]* Diagnosis Sleep apnea, unspecified type- Primary Stuffy nose Other diseases of nasal cavity and sinuses Essential hypertension Unspecified essential hypertension [facility]* Diagnosis Nasal stenosis- Primary Other diseases of nasal cavity and sinuses Deviated nasal septum [facility]* Diagnosis Sleep apnea, unspecified type- Primary Mixed hyperlipidemia Essential hypertension Unspecified essential hypertension Need for vaccination Need for prophylactic vaccination and inoculation against unspecified single disease Mild episode of recurrent major depressive disorder (HCC) [facility]* Diagnosis Rash- Primary Rash and other nonspecific skin eruption [facility]* Diagnosis Encounter for gynecological examination without abnormal finding- Primary Routine gynecological examination Encounter for screening mammogram for malignant neoplasm of breast Other screening mammogram Vaginal itching Pruritus of genital organs [facility] Diagnosis Essential hypertension Unspecified essential hypertension [facility]* Diagnosis Medicare annual wellness visit, subsequent- Primary Routine general medical examination at a health care facility Mild episode of recurrent major depressive disorder (HCC) Anxiety Anxiety state, unspecified Hair loss Alopecia, unspecified Essential hypertension Unspecified essential hypertension Bunion, right foot Bunion Elevated glucose Other abnormal glucose [facility]* Diagnosis RLS (restless legs syndrome) Restless legs syndrome (RLS) [facility]* Diagnosis Anxiety- Primary Anxiety state, unspecified Mild episode of recurrent major depressive disorder (HCC) [facility]* Diagnosis Encounter for screening mammogram for malignant neoplasm of breast Other screening mammogram [facility]* Diagnosis Encounter for screening mammogram for malignant neoplasm of breast Other screening mammogram [facility]* Diagnosis COVID-19 virus infection- Primary [facility]* Diagnosis Sore throat- Primary Acute pharyngitis Bacterial pneumonia Bacterial pneumonia, unspecified [facility]* Diagnosis Anxiety Anxiety state, unspecified [facility]* Diagnosis Acute cough- Primary Shortness of breath Malaise Other malaise and fatigue Sore throat Acute pharyngitis [facility]* Diagnosis Essential hypertension Unspecified essential hypertension [facility]* Diagnosis Mixed hyperlipidemia [facility]* Diagnosis Essential hypertension- Primary Unspecified essential hypertension Mixed hyperlipidemia Anxiety Anxiety state, unspecified Mild episode of recurrent major depressive disorder (HCC) H/O bee sting allergy Allergy to insects and arachnids documented [facility] this encounter [facility]* Diagnosis Subacute cough- Primary Cough Sore throat Acute pharyngitis [facility]* Diagnosis Encounter for gynecological examination (general) (routine) without abnormal findings- Primary Encounter for screening mammogram for breast cancer MARINE (stress urinary incontinence, female) Female stress incontinence [facility] encounter [facility]* Diagnosis RLS (restless legs syndrome)- Primary Restless legs syndrome (RLS) PLMD (periodic limb movement disorder) Periodic limb movement disorder [facility] encounter [facility]* Diagnosis Encounter for gynecological examination (general) (routine) without abnormal findings Encounter for screening mammogram for breast cancer documented [facility] encounter [facility]* Diagnosis MARINE (stress urinary incontinence, female)- Primary Female stress incontinence [facility]* Diagnosis Acute cough Shortness of breath [facility]* Diagnosis Right shoulder injury, initial encounter [facility] encounter [facility]* Diagnosis Injury of left knee, initial encounter- Primary Knee effusion, left Effusion of lower leg joint Strain of left levator scapulae muscle, subsequent encounter Cervicalgia [facility]* Diagnosis Injury of left knee, initial encounter [facility] encounter [facility]* Diagnosis MARINE (stress urinary incontinence, female)- Primary Female stress incontinence [facility] Diagnosis Strain of left levator scapulae muscle, subsequent encounter- Primary Cervicalgia Acute pain of left knee [facility]* Diagnosis Tick bite of neck, initial encounter- Primary [facility]* Diagnosis Cervicalgia- Primary Strain of left levator scapulae muscle, initial encounter Acute pain of left knee [facility]* Diagnosis Cervicalgia- Primary Strain of left levator scapulae muscle, initial encounter Acute pain of left knee [facility]* Diagnosis Cervicalgia- Primary Strain of left levator scapulae muscle, initial encounter Acute pain of left knee [facility]* Diagnosis MARINE (stress urinary incontinence, female)- Primary Female stress incontinence [facility]* Diagnosis Acquired hallux valgus of right foot- Primary Hallux valgus (acquired) Hallux rigidus of right foot Hallux rigidus [facility]* Diagnosis Acquired hallux valgus of right foot Hallux valgus (acquired) Hallux rigidus of right foot Hallux rigidus [facility]* Diagnosis Cervicalgia- Primary Strain of left levator scapulae muscle, initial encounter Acute pain of left knee [facility]* Diagnosis Medicare annual wellness visit, subsequent- Primary Routine general medical examination at a health care facility Mixed hyperlipidemia Essential hypertension Unspecified essential hypertension Mild episode of recurrent major depressive disorder (HCC) Anxiety Anxiety state, unspecified [facility]* Diagnosis MARINE (stress urinary incontinence, female)- Primary Female stress incontinence [facility]* Diagnosis Cervicalgia- Primary Strain of left levator scapulae muscle, initial encounter Acute pain of left knee documented in [facility] Diagnosis MARINE (stress urinary incontinence, female)- Primary Female stress incontinence [facility]* Diagnosis Cervicalgia- Primary Strain of left levator scapulae muscle, initial encounter Acute pain of left knee [facility] Diagnosis Cervicalgia- Primary Strain of left levator scapulae muscle, initial encounter Acute pain of left knee [facility] Diagnosis Cervicalgia- Primary Strain of left levator scapulae muscle, initial encounter Acute pain of left knee [facility] Diagnosis Cervicalgia- Primary Strain of left levator scapulae muscle, initial encounter Acute pain of left knee [facility] noteNo assessment information availableWSycamore [facility] Work Phone: Evaluation note* Diagnosis Mixed hyperlipidemia- Primary Essential hypertension Unspecified essential hypertension Anxiety and depression Dysthymic disorder Stress incontinence Female stress incontinence Encounter for screening for depression Family history of Alzheimer disease [facility]* Diagnosis Cervicalgia- Primary Strain of left levator scapulae muscle, initial encounter [facility]* Diagnosis Cervicalgia- Primary Acute pain of left knee [facility]* Diagnosis Breast cancer screening by mammogram- Primary Essential hypertension Unspecified essential hypertension Panic attack Panic disorder without agoraphobia Claustrophobia Other isolated or specific phobias Cervicalgia documented [facility]* Diagnosis Concern about memory- Primary Family history of Alzheimer disease Acquired hallux valgus of right foot Hallux valgus (acquired) Hallux rigidus of right foot Hallux rigidus Insomnia, unspecified type RBD (REM behavioral disorder) REM sleep behavior disorder Obstructive sleep apnea syndrome Obstructive sleep apnea (adult) (pediatric) Mixed hyperlipidemia [facility] Cervicalgia- Primary Strain of left levator scapulae muscle, initial encounter Acute pain of left knee [facility] Diagnosis Breast cancer screening by mammogram [facility] Diagnosis Panic attack Panic disorder without agoraphobia Claustrophobia Other isolated or specific phobias [facility] Additional Instructions Ice to your scalp to decrease the pain and swelling Tylenol for pain. You have a close head injury most likely a mild concussion. You may have some intermittent headaches. Dizziness. You may want to sleep more or have trouble sleeping. All those are postconcussion symptoms. Those should progressively get better and improve the next several weeks. If you would get a severe headache with vomiting you need to return for further evaluation.[facility] Work Phone: Reason for referral (narrative)* Diagnostic Procedure Only (Routine) - Closed Specialty Diagnoses / Procedures Referred By Tangela chavira Referred To Contact [facility] Diagnoses Abnormal screening mammogram Procedures US BREAST LTD RT US BREAST UNI REAL TIME WITH IMAGE LIMITED Shar Enamorado MD [address] [place] [address] [facility] [address] [place] [address] Referral ID Status Reason Start Date Expiration Date V isits Requested Visits Authorized [id number] Closed Auto-Generate d Referral 05/05/2021 06/04/2022 1 1 [facility] for referral (narrative)* Diagnostic Procedure Only (Routine) - Pending Review Specialty Diagnoses / Procedures Referred By Tangela chavira Referred To Contact [facility] Diagnoses Encounter for screening mammogram for malignant neoplasm of breast Procedures DWAIN SCREENING SCREENING MAMMOGRAPHY BI 2-VIEW BREAST INC CAD Shar Enamorado MD [address] [place] [address] [facility] [address] [place] [address] Referral ID Status Reason Start Date Expiration Date Visits Requested Visits Authorized [id number] Pending Review Auto-Generat ed Referral 09/18/2021 10/18/2022 1 1 T [facility] for referral (narrative)* Diagnostic Procedure Only (Routine) - Authorized Specialty Diagnoses / Procedures Referred By Tangela chavira Referred To Contact [facility] Diagnoses Encounter for screening mammogram for malignant neoplasm of breast Procedures DWAIN SCREENING SCREENING MAMMOGRAPHY BI 2-VIEW BREAST INC Shar Canales MD [address] [place] [address] [facility] [address] [place] [address] Referral ID Status Reason Start Date Expiration Date Visits Requested Visits Authorized [id number] Authorized Auto-Generat ed Referral 09/21/2022 10/21/2023 1 1 [facility] for referral (narrative)* Diagnostic Procedure Only (Routine) - Closed Specialty Diagnoses / Procedures Referred By Tangela chavira Referred To Contact [facility] Diagnoses Encounter for screening mammogram for malignant neoplasm of breast Procedures DWAIN SCREENING SCREENING MAMMOGRAPHY BI 2-VIEW BREAST INC Shar Canales MD [address] [place] [address] [facility] [address] [place] [address] Referral ID Status Reason Start Date Expiration Date V isits Requested Visits Authorized [id number] Closed Auto-Generate d Referral 09/21/2022 10/21/2023 1 1 [facility] for referral (narrative)* Diagnostic Procedure Only (Routine) - Closed Specialty Diagnoses / Procedures Referred By Tangela chavria Referred To Contact [facility] Diagnoses Encounter for gynecological examination (general) (routine) without abnormal findings Encounter for screening mammogram for breast cancer Procedures DWAIN SCREENING W HONORIO SCREENING DIGITAL BREAST TOMOSYNTHESIS BI SCREENING MAMMOGRAPHY BI 2-VIEW BREAST INC Shar Canales MD [address] [place] [address] [facility] [address] [place] [address] Referral ID Status Reason Start Date Expiration Date V isits Requested Visits Authorized [id number] Closed Auto-Generate d Referral 09/23/2023 10/22/2024 1 1 [facility] for referral (narrative)* Diagnostic Procedure Only (Urgent) - Closed Specialty Diagnoses / Procedures Referred By Tangela chavira Referred To Contact XR IMAGING Diagnoses Right shoulder injury, initial encounter Procedures XR SHOULDER GENERAL 3V OR MORE AP/TRUE AP/OTHER RIGHT RADEX SHOULDER COMPLETE MINIMUM 2 VIEWS Leatha Rico, ODALIS.DIE TECHNICIAN [address] [place] [address] [place] [address] Referral ID Status Reason Start Date Expiration Date V isits Requested Visits Authorized [id number] Closed Auto-Generate d Referral 03/15/2023 04/13/2024 1 1 [facility] for referral (narrative)* Diagnostic Procedure Only (Routine) - Closed Specialty Diagnoses / Procedures Referred By Contac t Referred To Contact XR IMAGING Diagnoses Acquired hallux valgus of right foot Hallux rigidus of right foot Procedures XR FOOT GENERAL 3V AP/LAT/OBL RIGHT RADEX FOOT COMPLETE MINIMUM 3 VIEWS Micheal Yeh [address] [address] Xr Imaging [facility] Referral ID Status Reason Start Date Expiration Date V isits Requested Visits Authorized [id number] Closed Auto-Generate d Referral 02/07/2024 03/08/2025 1 1 [facility] for referral (narrative)No reason for referral information availableWSycamore Medical Center Work Phone: Reason for visit Narrative* Diagnostic Procedure Only (Routine) - Closed Specialty Diagnoses / Procedures Referred By Contac t Referred To Contact [facility] Diagnoses Abnormal screening mammogram Procedures DWAIN DIAGNOSTIC RT DIAGNOSTIC MAMMOGRAPHY COMPUTER-AIDED DETCJ UNI Shar Enamorado MD [address] [place] [address] [facility] [address] [place] [address] Referral ID Status Reason Start Date Expiration Date V isits Requested Visits Authorized [id number] Closed Auto-Generate d Referral 06/05/2021 07/05/2022 1 1 [facility] for visit Narrative* Diagnostic Procedure Only (Routine) - Closed Specialty Diagnoses / Procedures Referred By Contac t Referred To Contact [facility] Diagnoses Encounter for screening mammogram for malignant neoplasm of breast Procedures DWAIN SCREENING SCREENING MAMMOGRAPHY BI 2-VIEW BREAST INC CAD Shar Enamorado MD [address] [place] [address] [facility] [address] [place] [address] Referral ID Status Reason Start Date Expiration Date V isits Requested Visits Authorized [id number] Closed Auto-Generate d Referral 09/21/2022 10/21/2023 1 1 [facility] for visit Narrative* Diagnostic Procedure Only (Routine) - Closed Specialty Diagnoses / Procedures Referred By Contac t Referred To Contact [facility] Diagnoses Encounter for gynecological examination (general) (routine) without abnormal findings Encounter for screening mammogram for breast cancer Procedures DWAIN SCREENING W HONORIO SCREENING DIGITAL BREAST TOMOSYNTHESIS BI SCREENING MAMMOGRAPHY BI 2-VIEW BREAST INC CAD Shar Enamorado MD [address] [place] [address] [facility] [address] [address] Referral ID Status Reason Start Date Expiration Date V isits Requested Visits Authorized [id number] Closed Auto-Generate d Referral 09/23/2023 10/22/2024 1 1 [facility] for visit Narrative* Diagnostic Procedure Only (Urgent) - Closed Specialty Diagnoses / Procedures Referred By Contac t Referred To Contact XR IMAGING Diagnoses Right shoulder injury, initial encounter Procedures XR SHOULDER GENERAL 3V OR MORE AP/TRUE AP/OTHER RIGHT RADEX SHOULDER COMPLETE MINIMUM 2 VIEWS Leatha Rico APRN.AJ [address] [place] [address] [place] [id number] Referral ID Status Reason Start Date Expiration Date V isits Requested Visits Authorized [id number] Closed Auto-Generate d Referral 03/15/2023 04/13/2024 1 1 [facility] for visit Narrative* Diagnostic Procedure Only (Routine) - Closed Specialty Diagnoses / Procedures Referred By Contac t Referred To Contact XR IMAGING Diagnoses Injury of left knee, initial encounter Procedures XR KNEE GENERAL 4V AP BOTH/PA BOTH/LAT/MERC LEFT RADIOLOGIC EXAM KNEE COMPLETE 4/MORE VIEWS Micah High MD [address] [place] [address] [place] [id number] Referral ID Status Reason Start Date Expiration Date V isits Requested Visits Authorized [id number] Closed Auto-Generate d Referral 11/29/2023 12/28/2024 1 1 [facility] for visit Narrative* Diagnostic Procedure Only (Routine) - Closed Specialty Diagnoses / Procedures Referred By Tangela t Referred To Contact XR IMAGING Diagnoses Acquired hallux valgus of right foot Hallux rigidus of right foot Procedures XR FOOT GENERAL 3V AP/LAT/OBL RIGHT RADEX FOOT COMPLETE MINIMUM 3 VIEWS Micheal Yeh [address] [place] [address] [place] [address] Referral ID Status Reason Start Date Expiration Date V isits Requested Visits Authorized [id number] Closed Auto-Generate d Referral 02/07/2024 03/08/2025 1 1 [facility] for visit Narrative* Diagnostic Procedure Only (Routine) - Closed Specialty Diagnoses / Procedures Referred By Tangela t Referred To Contact [facility] Diagnoses Breast cancer screening by mammogram Procedures DWAIN SCREENING W HONORIO SCREENING DIGITAL BREAST TOMOSYNTHESIS BI SCREENING MAMMOGRAPHY BI 2-VIEW BREAST INC Micah Singh MD [address] [place] [address] Phone: tel: fax: [facility] [address] [place] [address] Referral ID Status Reason Start Date Expiration Date V isits Requested Visits Authorized [id number] Closed Auto-Generate d Referral 08/21/2024 09/20/2025 1 1 [facility] Summary Purpose Family History No Family History Records FoundNo Family History Records FoundNo Family History Records FoundNo Family History Records Found Advance Directives Documents on File Type Date 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 No December 06, 2024 3:35pm Reason for Referral Specialty Diagnoses / Procedures Referred By Contac t Referred To Contact General Surgery Diagnoses Skin lesion Sebaceous cyst Pure hypercholesterolemia Procedures CONSULT TO GENERAL SURGERY OFFICE/OUTPATIENT [facility] 60-74 MINUTES Micah High MD [facility] [place] [address] Referral ID Status Reason Start Date Expiration Date Visits Requested Visits Authorized [id number] Authorized PCP Requested Referral 12/05/2021 12/05/2022 1 1 Specialty Diagnoses / Procedures Referred By Contac t Referred To Contact Ent - Otolaryngology Diagnoses Sleep apnea, unspecified type Stuffy nose Procedures CONSULT TO ENT OFFICE/OUTPATIENT [facility] 60-[place] [address] [place] [address] Referral ID Status Reason Start Date Expiration Date Visits Requested Visits Authorized [id number] Authorized PCP Requested Referral 01/05/2022 01/05/2023 1 1 Specialty Diagnoses / Procedures Referred By Contac t Referred To Contact Diagnoses Sleep apnea, unspecified type Procedures CONSULT TO SLEEP MEDICINE - ADULT OFFICE/OUTPATIENT [facility] 60-74 MINUTES Micah High MD [address] [place] [address] Referral ID Status Reason Start Date Expiration Date Visits Requested Visits Authorized [id number] Authorized PCP Requested Referral 01/05/2022 01/05/2023 1 1 Specialty Diagnoses / Procedures Referred By Contac t Referred To Contact [facility] Diagnoses Sleep apnea, unspecified type Procedures HOME SLEEP APNEA TEST (HSAT) SLEEP STD AIRFLOW HRT RATE&O2 [place] [address] [place] [address] [facility] [address] [place] [address] Referral ID Status Reason Start Date Expiration Date Visits Requested Visits Authorized [id number] Authorized Auto-Generat ed Referral 01/05/2022 01/05/2023 1 1 Specialty Diagnoses / Procedures Referred By Contac t Referred To Contact CT IMAGING Diagnoses Other specified disorders of nose and nasal sinuses Procedures CT SINUS WO IVCON CT MAXILLOFACIAL W/O CONTRAST MATERIAL Marylu Banks MD [address] [place] [address] Referral ID Status Reason Start Date Expiration Date Visits Requested Visits Authorized [id number] Authorized Auto-Generat ed Referral 02/20/2023 1 1 Specialty Diagnoses / Procedures Referred By Contac t Referred To Contact CT IMAGING Diagnoses Other specified disorders of nose and nasal sinuses Procedures CT SINUS WO IVCON CT MAXILLOFACIAL W/O CONTRAST MATERIAL Marylu Banks MD [address] [place] [address] [address] [place] [id number] Referral ID Status Reason Start Date Expiration Date V isits Requested Visits Authorized [id number] Closed Auto-Generate d Referral 01/21/2022 02/20/2023 1 1 Specialty Diagnoses / Procedures Referred By Contac t Referred To Contact [facility] Diagnoses MARINE (stress urinary incontinence, female) Procedures CONSULT TO PHYSICAL THERAPY PHYSICAL THERAPY EVALUATION HIGH COMPLEX 45 MINS Shar Enamorado MD [address] [place] [address] [facility] [address] [place] [address] Referral ID Status Reason Start Date Expiration Date Visits Requested Visits Authorized [id number] Authorized Auto-Generat ed Referral 03/07/2023 03/06/2024 99 99 Specialty Diagnoses / Procedures Referred By Contac t Referred To Contact [facility] Diagnoses Encounter for gynecological examination (general) (routine) without abnormal findings Encounter for screening mammogram for breast cancer Procedures DWAIN SCREENING W HONORIO SCREENING DIGITAL BREAST TOMOSYNTHESIS BI SCREENING MAMMOGRAPHY BI 2-VIEW BREAST INC CAD Shar Enamorado MD [address] [place] [address] [facility] [address] [place] [address] Referral ID Status Reason Start Date Expiration Date Visits Requested Visits Authorized [id number] Authorized Auto-Generat ed Referral 09/23/2023 10/22/2024 1 1 Specialty Diagnoses / Procedures Referred By Contac t Referred To Contact [facility] Diagnoses Strain of left levator scapulae muscle, subsequent encounter Cervicalgia Procedures CONSULT TO PHYSICAL THERAPY PHYSICAL THERAPY EVALUATION HIGH COMPLEX 45 MINS Micah High MD [address] [place] [address] [facility] [address] [place] [address] Referral ID Status Reason Start Date Expiration Date V isits Requested Visits Authorized [id number] Denied Auto-Generate d Referral 11/29/2023 11/28/2024 1 0 Specialty Diagnoses / Procedures Referred By Contac t Referred To Contact Orthopedics Diagnoses Injury of left knee, initial encounter Knee effusion, left Procedures CONSULT TO ORTHOPAEDICS OFFICE/OUTPATIENT [facility] 60 MINUTES Micah High MD [address] [place] [address] Referral ID Status Reason Start Date Expiration Date Visits Requested Visits Authorized [id number] Authorized PCP Requested Referral 11/29/2023 11/28/2024 1 1 Specialty Diagnoses / Procedures Referred By Contac t Referred To Contact XR IMAGING Diagnoses Injury of left knee, initial encounter Procedures XR KNEE GENERAL 4V AP BOTH/PA BOTH/LAT/MERC LEFT RADIOLOGIC EXAM KNEE COMPLETE 4/MORE VIEWS Micah High MD [address] [place] [address] [place] [id number] Referral ID Status Reason Start Date Expiration Date V isits Requested Visits Authorized [id number] Closed Auto-Generate d Referral 11/29/2023 12/28/2024 1 1 Chief Complaint and Reason for Visit Chief Complaint Admit Date FALL May 10, 2024 12:1 7pm Chief Complaint Admit Date GEN. ILLNESS December 06, 2024 3: 22pm Additional Source Comments INFORMATION SOURCE (unrecogn ized section and content) DATE CREATED AUTHOR 03/16/2019 [facility] DATE CREATED AUTHOR AUTHOR'S ORGANIZ ATION 03/29/2024 [facility] nt DATE CREATED AUTHOR AUTHOR'S ORGANIZ ATION 05/23/2024 [facility] DATE CREATED AUTHOR AUTHOR'S ITZEL VELIZ 12/08/2024 [facility] Source Comments (unrecognize d section and content) In the event this informatio n is protected by the Federal Confidentiality of Alcohol and Drug Abuse Patient Records regulations: The Federal rules restrict any use of the information to criminally investigate or prosecute any alcohol or drug abuse patient.[facility] the event this information is protected by the Federal Confidentiality of Alcohol and Drug Abuse Patient Records regulations: The Federal rules restrict any use of the information to criminally investigate or prosecute any alcohol or drug abuse patient.[facility] the event this information is protected by the Federal Confidentiality of Alcohol and Drug Abuse Patient Records regulations: The Federal rules restrict any use of the information to criminally investigate or prosecute any alcohol or drug abuse patient.[facility] the event this information is protected by the Federal Confidentiality of Alcohol and Drug Abuse Patient Records regulations: The Federal rules restrict any use of the information to criminally investigate or prosecute any alcohol or drug abuse patient.[facility] the event this information is protected by the Federal Confidentiality of Alcohol and Drug Abuse Patient Records regulations: The Federal rules restrict any use of the information to criminally investigate or prosecute any alcohol or drug abuse patient.[facility] the event this information is protected by the Federal Confidentiality of Alcohol and Drug Abuse Patient Records regulations: The Federal rules restrict any use of the information to criminally investigate or prosecute any alcohol or drug abuse patient.[facility] the event this information is protected by the Federal Confidentiality of Alcohol and Drug Abuse Patient Records regulations: The Federal rules restrict any use of the information to criminally investigate or prosecute any alcohol or drug abuse patient.[facility] the event this information is protected by the Federal Confidentiality of Alcohol and Drug Abuse Patient Records regulations: The Federal rules restrict any use of the information to criminally investigate or prosecute any alcohol or drug abuse patient.[facility] the event this information is protected by the Federal Confidentiality of Alcohol and Drug Abuse Patient Records regulations: The Federal rules restrict any use of the information to criminally investigate or prosecute any alcohol or drug abuse patient.[facility] the event this information is protected by the Federal Confidentiality of Alcohol and Drug Abuse Patient Records regulations: The Federal rules restrict any use of the information to criminally investigate or prosecute any alcohol or drug abuse patient.[facility] the event this information is protected by the Federal Confidentiality of Alcohol and Drug Abuse Patient Records regulations: The Federal rules restrict any use of the information to criminally investigate or prosecute any alcohol or drug abuse patient.[facility] the event this information is protected by the Federal Confidentiality of Alcohol and Drug Abuse Patient Records regulations: The Federal rules restrict any use of the information to criminally investigate or prosecute any alcohol or drug abuse patient.[facility] the event this information is protected by the Federal Confidentiality of Alcohol and Drug Abuse Patient Records regulations: The Federal rules restrict any use of the information to criminally investigate or prosecute any alcohol or drug abuse patient.[facility] the event this information is protected by the Federal Confidentiality of Alcohol and Drug Abuse Patient Records regulations: The Federal rules restrict any use of the information to criminally investigate or prosecute any alcohol or drug abuse patient.[facility] the event this information is protected by the Federal Confidentiality of Alcohol and Drug Abuse Patient Records regulations: The Federal rules restrict any use of the information to criminally investigate or prosecute any alcohol or drug abuse patient.[facility] the event this information is protected by the Federal Confidentiality of Alcohol and Drug Abuse Patient Records regulations: The Federal rules restrict any use of the information to criminally investigate or prosecute any alcohol or drug abuse patient.[facility] the event this information is protected by the Federal Confidentiality of Alcohol and Drug Abuse Patient Records regulations: The Federal rules restrict any use of the information to criminally investigate or prosecute any alcohol or drug abuse patient.[facility] the event this information is protected by the Federal Confidentiality of Alcohol and Drug Abuse Patient Records regulations: The Federal rules restrict any use of the information to criminally investigate or prosecute any alcohol or drug abuse patient.[facility] the event this information is protected by the Federal Confidentiality of Alcohol and Drug Abuse Patient Records regulations: The Federal rules restrict any use of the information to criminally investigate or prosecute any alcohol or drug abuse patient.[facility] ClinicIn the event this information is protected by the Federal Confidentiality of Alcohol and Drug Abuse Patient Records regulations: The Federal rules restrict any use of the information to criminally investigate or prosecute any alcohol or drug abuse patient.[facility] ClinicIn the event this information is protected by the Federal Confidentiality of Alcohol and Drug Abuse Patient Records regulations: The Federal rules restrict any use of the information to criminally investigate or prosecute any alcohol or drug abuse patient.[facility] ClinicIn the event this information is protected by the Federal Confidentiality of Alcohol and Drug Abuse Patient Records regulations: The Federal rules restrict any use of the information to criminally investigate or prosecute any alcohol or drug abuse patient.[facility] ClinicIn the event this information is protected by the Federal Confidentiality of Alcohol and Drug Abuse Patient Records regulations: The Federal rules restrict any use of the information to criminally investigate or prosecute any alcohol or drug abuse patient.[facility] ClinicIn the event this information is protected by the Federal Confidentiality of Alcohol and Drug Abuse Patient Records regulations: The Federal rules restrict any use of the information to criminally investigate or prosecute any alcohol or drug abuse patient.[facility] ClinicIn the event this information is protected by the Federal Confidentiality of Alcohol and Drug Abuse Patient Records regulations: The Federal rules restrict any use of the information to criminally investigate or prosecute any alcohol or drug abuse patient.[facility] ClinicIn the event this information is protected by the Federal Confidentiality of Alcohol and Drug Abuse Patient Records regulations: The Federal rules restrict any use of the information to criminally investigate or prosecute any alcohol or drug abuse patient.[facility] ClinicIn the event this information is protected by the Federal Confidentiality of Alcohol and Drug Abuse Patient Records regulations: The Federal rules restrict any use of the information to criminally investigate or prosecute any alcohol or drug abuse patient.[facility] ClinicIn the event this information is protected by the Federal Confidentiality of Alcohol and Drug Abuse Patient Records regulations: The Federal rules restrict any use of the information to criminally investigate or prosecute any alcohol or drug abuse patient.[facility] ClinicIn the event this information is protected by the Federal Confidentiality of Alcohol and Drug Abuse Patient Records regulations: The Federal rules restrict any use of the information to criminally investigate or prosecute any alcohol or drug abuse patient.[facility] ClinicIn the event this information is protected by the Federal Confidentiality of Alcohol and Drug Abuse Patient Records regulations: The Federal rules restrict any use of the information to criminally investigate or prosecute any alcohol or drug abuse patient.[facility] ClinicIn the event this information is protected by the Federal Confidentiality of Alcohol and Drug Abuse Patient Records regulations: The Federal rules restrict any use of the information to criminally investigate or prosecute any alcohol or drug abuse patient.[facility] ClinicIn the event this information is protected by the Federal Confidentiality of Alcohol and Drug Abuse Patient Records regulations: The Federal rules restrict any use of the information to criminally investigate or prosecute any alcohol or drug abuse patient.[facility] ClinicIn the event this information is protected by the Federal Confidentiality of Alcohol and Drug Abuse Patient Records regulations: The Federal rules restrict any use of the information to criminally investigate or prosecute any alcohol or drug abuse patient.[facility] ClinicIn the event this information is protected by the Federal Confidentiality of Alcohol and Drug Abuse Patient Records regulations: The Federal rules restrict any use of the information to criminally investigate or prosecute any alcohol or drug abuse patient.[facility] ClinicIn the event this information is protected by the Federal Confidentiality of Alcohol and Drug Abuse Patient Records regulations: The Federal rules restrict any use of the information to criminally investigate or prosecute any alcohol or drug abuse patient.[facility] ClinicIn the event this information is protected by the Federal Confidentiality of Alcohol and Drug Abuse Patient Records regulations: The Federal rules restrict any use of the information to criminally investigate or prosecute any alcohol or drug abuse patient.[facility] ClinicIn the event this information is protected by the Federal Confidentiality of Alcohol and Drug Abuse Patient Records regulations: The Federal rules restrict any use of the information to criminally investigate or prosecute any alcohol or drug abuse patient.[facility] ClinicIn the event this information is protected by the Federal Confidentiality of Alcohol and Drug Abuse Patient Records regulations: The Federal rules restrict any use of the information to criminally investigate or prosecute any alcohol or drug abuse patient.[facility] ClinicIn the event this information is protected by the Federal Confidentiality of Alcohol and Drug Abuse Patient Records regulations: The Federal rules restrict any use of the information to criminally investigate or prosecute any alcohol or drug abuse patient.[facility] ClinicIn the event this information is protected by the Federal Confidentiality of Alcohol and Drug Abuse Patient Records regulations: The Federal rules restrict any use of the information to criminally investigate or prosecute any alcohol or drug abuse patient.[facility] ClinicIn the event this information is protected by the Federal Confidentiality of Alcohol and Drug Abuse Patient Records regulations: The Federal rules restrict any use of the information to criminally investigate or prosecute any alcohol or drug abuse patient.[facility] ClinicIn the event this information is protected by the Federal Confidentiality of Alcohol and Drug Abuse Patient Records regulations: The Federal rules restrict any use of the information to criminally investigate or prosecute any alcohol or drug abuse patient.[facility] ClinicIn the event this information is protected by the Federal Confidentiality of Alcohol and Drug Abuse Patient Records regulations: The Federal rules restrict any use of the information to criminally investigate or prosecute any alcohol or drug abuse patient.[facility] ClinicIn the event this information is protected by the Federal Confidentiality of Alcohol and Drug Abuse Patient Records regulations: The Federal rules restrict any use of the information to criminally investigate or prosecute any alcohol or drug abuse patient.[facility] ClinicIn the event this information is protected by the Federal Confidentiality of Alcohol and Drug Abuse Patient Records regulations: The Federal rules restrict any use of the information to criminally investigate or prosecute any alcohol or drug abuse patient.[facility] ClinicIn the event this information is protected by the Federal Confidentiality of Alcohol and Drug Abuse Patient Records regulations: The Federal rules restrict any use of the information to criminally investigate or prosecute any alcohol or drug abuse patient.[facility] ClinicIn the event this information is protected by the Federal Confidentiality of Alcohol and Drug Abuse Patient Records regulations: The Federal rules restrict any use of the information to criminally investigate or prosecute any alcohol or drug abuse patient.[facility] ClinicIn the event this information is protected by the Federal Confidentiality of Alcohol and Drug Abuse Patient Records regulations: The Federal rules restrict any use of the information to criminally investigate or prosecute any alcohol or drug abuse patient.[facility] ClinicIn the event this information is protected by the Federal Confidentiality of Alcohol and Drug Abuse Patient Records regulations: The Federal rules restrict any use of the information to criminally investigate or prosecute any alcohol or drug abuse patient.[facility] ClinicIn the event this information is protected by the Federal Confidentiality of Alcohol and Drug Abuse Patient Records regulations: The Federal rules restrict any use of the information to criminally investigate or prosecute any alcohol or drug abuse patient.[facility] ClinicIn the event this information is protected by the Federal Confidentiality of Alcohol and Drug Abuse Patient Records regulations: The Federal rules restrict any use of the information to criminally investigate or prosecute any alcohol or drug abuse patient.[facility] ClinicIn the event this information is protected by the Federal Confidentiality of Alcohol and Drug Abuse Patient Records regulations: The Federal rules restrict any use of the information to criminally investigate or prosecute any alcohol or drug abuse patient.[facility] ClinicIn the event this information is protected by the Federal Confidentiality of Alcohol and Drug Abuse Patient Records regulations: The Federal rules restrict any use of the information to criminally investigate or prosecute any alcohol or drug abuse patient.[facility] ClinicIn the event this information is protected by the Federal Confidentiality of Alcohol and Drug Abuse Patient Records regulations: The Federal rules restrict any use of the information to criminally investigate or prosecute any alcohol or drug abuse patient.[facility] ClinicIn the event this information is protected by the Federal Confidentiality of Alcohol and Drug Abuse Patient Records regulations: The Federal rules restrict any use of the information to criminally investigate or prosecute any alcohol or drug abuse patient.[facility] ClinicIn the event this information is protected by the Federal Confidentiality of Alcohol and Drug Abuse Patient Records regulations: The Federal rules restrict any use of the information to criminally investigate or prosecute any alcohol or drug abuse patient.[facility] ClinicIn the event this information is protected by the Federal Confidentiality of Alcohol and Drug Abuse Patient Records regulations: The Federal rules restrict any use of the information to criminally investigate or prosecute any alcohol or drug abuse patient.[facility] ClinicIn the event this information is protected by the Federal Confidentiality of Alcohol and Drug Abuse Patient Records regulations: The Federal rules restrict any use of the information to criminally investigate or prosecute any alcohol or drug abuse patient.[facility] ClinicIn the event this information is protected by the Federal Confidentiality of Alcohol and Drug Abuse Patient Records regulations: The Federal rules restrict any use of the information to criminally investigate or prosecute any alcohol or drug abuse patient.[facility] ClinicIn the event this information is protected by the Federal Confidentiality of Alcohol and Drug Abuse Patient Records regulations: The Federal rules restrict any use of the information to criminally investigate or prosecute any alcohol or drug abuse patient.[facility] ClinicIn the event this information is protected by the Federal Confidentiality of Alcohol and Drug Abuse Patient Records regulations: The Federal rules restrict any use of the information to criminally investigate or prosecute any alcohol or drug abuse patient.[facility] ClinicIn the event this information is protected by the Federal Confidentiality of Alcohol and Drug Abuse Patient Records regulations: The Federal rules restrict any use of the information to criminally investigate or prosecute any alcohol or drug abuse patient.[facility] ClinicIn the event this information is protected by the Federal Confidentiality of Alcohol and Drug Abuse Patient Records regulations: The Federal rules restrict any use of the information to criminally investigate or prosecute any alcohol or drug abuse patient.[facility] ClinicIn the event this information is protected by the Federal Confidentiality of Alcohol and Drug Abuse Patient Records regulations: The Federal rules restrict any use of the information to criminally investigate or prosecute any alcohol or drug abuse patient.[facility] ClinicIn the event this information is protected by the Federal Confidentiality of Alcohol and Drug Abuse Patient Records regulations: The Federal rules restrict any use of the information to criminally investigate or prosecute any alcohol or drug abuse patient.[facility] ClinicIn the event this information is protected by the Federal Confidentiality of Alcohol and Drug Abuse Patient Records regulations: The Federal rules restrict any use of the information to criminally investigate or prosecute any alcohol or drug abuse patient.[facility] ClinicIn the event this information is protected by the Federal Confidentiality of Alcohol and Drug Abuse Patient Records regulations: The Federal rules restrict any use of the information to criminally investigate or prosecute any alcohol or drug abuse patient.[facility] ClinicIn the event this information is protected by the Federal Confidentiality of Alcohol and Drug Abuse Patient Records regulations: The Federal rules restrict any use of the information to criminally investigate or prosecute any alcohol or drug abuse patient.[facility] ClinicIn the event this information is protected by the Federal Confidentiality of Alcohol and Drug Abuse Patient Records regulations: The Federal rules restrict any use of the information to criminally investigate or prosecute any alcohol or drug abuse patient.[facility] ClinicIn the event this information is protected by the Federal Confidentiality of Alcohol and Drug Abuse Patient Records regulations: The Federal rules restrict any use of the information to criminally investigate or prosecute any alcohol or drug abuse patient.[facility] ClinicIn the event this information is protected by the Federal Confidentiality of Alcohol and Drug Abuse Patient Records regulations: The Federal rules restrict any use of the information to criminally investigate or prosecute any alcohol or drug abuse patient.[facility] ClinicIn the event this information is protected by the Federal Confidentiality of Alcohol and Drug Abuse Patient Records regulations: The Federal rules restrict any use of the information to criminally investigate or prosecute any alcohol or drug abuse patient.[facility] ClinicIn the event this information is protected by the Federal Confidentiality of Alcohol and Drug Abuse Patient Records regulations: The Federal rules restrict any use of the information to criminally investigate or prosecute any alcohol or drug abuse patient.[facility]In the event this information is protected by the Federal Confidentiality of Alcohol and Drug Abuse Patient Records regulations: The Federal rules restrict any use of the information to criminally investigate or prosecute any alcohol or drug abuse patient.[facility] ClinicIn the event this information is protected by the Federal Confidentiality of Alcohol and Drug Abuse Patient Records regulations: The Federal rules restrict any use of the information to criminally investigate or prosecute any alcohol or drug abuse patient.[facility] ClinicIn the event this information is protected by the Federal Confidentiality of Alcohol and Drug Abuse Patient Records regulations: The Federal rules restrict any use of the information to criminally investigate or prosecute any alcohol or drug abuse patient.[facility] ClinicIn the event this information is protected by the Federal Confidentiality of Alcohol and Drug Abuse Patient Records regulations: The Federal rules restrict any use of the information to criminally investigate or prosecute any alcohol or drug abuse patient.[facility] ClinicIn the event this information is protected by the Federal Confidentiality of Alcohol and Drug Abuse Patient Records regulations: The Federal rules restrict any use of the information to criminally investigate or prosecute any alcohol or drug abuse patient.[facility]In the event this information is protected by the Federal Confidentiality of Alcohol and Drug Abuse Patient Records regulations: The Federal rules restrict any use of the information to criminally investigate or prosecute any alcohol or drug abuse patient.[facility] ClinicIn the event this information is protected by the Federal Confidentiality of Alcohol and Drug Abuse Patient Records regulations: The Federal rules restrict any use of the information to criminally investigate or prosecute any alcohol or drug abuse patient.[facility] ClinicIn the event this information is protected by the Federal Confidentiality of Alcohol and Drug Abuse Patient Records regulations: The Federal rules restrict any use of the information to criminally investigate or prosecute any alcohol or drug abuse patient.[facility] ClinicIn the event this information is protected by the Federal Confidentiality of Alcohol and Drug Abuse Patient Records regulations: The Federal rules restrict any use of the information to criminally investigate or prosecute any alcohol or drug abuse patient.[facility] ClinicIn the event this information is protected by the Federal Confidentiality of Alcohol and Drug Abuse Patient Records regulations: The Federal rules restrict any use of the information to criminally investigate or prosecute any alcohol or drug abuse patient.[facility]In the event this information is protected by the Federal Confidentiality of Alcohol and Drug Abuse Patient Records regulations: The Federal rules restrict any use of the information to criminally investigate or prosecute any alcohol or drug abuse patient.[facility] ClinicIn the event this information is protected by the Federal Confidentiality of Alcohol and Drug Abuse Patient Records regulations: The Federal rules restrict any use of the information to criminally investigate or prosecute any alcohol or drug abuse patient.[facility] ClinicIn the event this information is protected by the Federal Confidentiality of Alcohol and Drug Abuse Patient Records regulations: The Federal rules restrict any use of the information to criminally investigate or prosecute any alcohol or drug abuse patient.[facility] ClinicIn the event this information is protected by the Federal Confidentiality of Alcohol and Drug Abuse Patient Records regulations: The Federal rules restrict any use of the information to criminally investigate or prosecute any alcohol or drug abuse patient.[facility] ClinicIn the event this information is protected by the Federal Confidentiality of Alcohol and Drug Abuse Patient Records regulations: The Federal rules restrict any use of the information to criminally investigate or prosecute any alcohol or drug abuse patient.[facility] ClinicIn the event this information is protected by the Federal Confidentiality of Alcohol and Drug Abuse Patient Records regulations: The Federal rules restrict any use of the information to criminally investigate or prosecute any alcohol or drug abuse patient.[facility] ClinicIn the event this information is protected by the Federal Confidentiality of Alcohol and Drug Abuse Patient Records regulations: The Federal rules restrict any use of the information to criminally investigate or prosecute any alcohol or drug abuse patient.[facility] ClinicIn the event this information is protected by the Federal Confidentiality of Alcohol and Drug Abuse Patient Records regulations: The Federal rules restrict any use of the information to criminally investigate or prosecute any alcohol or drug abuse patient.[facility] Reason for Visit (unrecogniz ed section and content) Reason Comments PT Progress Note Specialty Diagnoses / Procedures Referred By Contac t Referred To Contact PHYSICAL THERAPY Diagnoses S46.812D (ICD-10-CM) - Strain of left levator scapulae muscle, subsequent encounter M54.2 (ICD-10-CM) - Cervicalgia Procedures S46.812D (ICD-10-CM) - Strain of left levator scapulae muscle, subsequent encounter M54.2 (ICD-10-CM) - Cervicalgia Micah High MD [address] [place] [address] [facility] [address] [place] [address] Referral ID Status Reason Start Date Expiration Date V isits Requested Visits Authorized [id number] Authorized 03/07/2024 03/06/2025 99 99 Reason Comments PT Discharge Reason Comments Physical Therapy Specialty Diagnoses / Procedures Referred By Contac t Referred To Contact PHYSICAL THERAPY Diagnoses MARINE (stress urinary incontinence, female) Procedures CONSULT TO PHYSICAL THERAPY PHYSICAL THERAPY EVALUATION HIGH COMPLEX 45 MINS Shar Enamorado MD [address] [place] [address] [place] [address] Referral ID Status Reason Start Date Expiration Date Visits Requested Visits Authorized [id number] Authorized Auto-Generat ed Referral 03/07/2023 03/06/2024 99 99 Specialty Diagnoses / Procedures Referred By Contac t Referred To Contact [facility] Diagnoses Strain of left levator scapulae muscle, subsequent encounter Cervicalgia Procedures CONSULT TO PHYSICAL THERAPY PHYSICAL THERAPY EVALUATION HIGH COMPLEX 45 MINS Micah High MD [address] [place] [address] [facility] [place] [address] [place] [id number] Referral ID Status Reason Start Date Expiration Date Visits Requested Visits Authorized [id number] Authorized Auto-Generat ed Referral 11/06/2023 03/06/2024 99 99 Reason Comments PT Eval Reason Comments Radiology US Specialty Diagnoses / Procedures Referred By Contac t Referred To Contact [facility] Diagnoses Abnormal screening mammogram Procedures US BREAST LTD RT US BREAST UNI REAL TIME WITH IMAGE LIMITED Shar Enamorado MD [address] [place] [address] [facility] [address] [place] [address] Referral ID Status Reason Start Date Expiration Date V isits Requested Visits Authorized [id number] Closed Auto-Generate d Referral 05/05/2021 06/04/2022 1 1 Reason Comments Radiology Mammogram Specialty Diagnoses / Procedures Referred By Contac t Referred To Contact [facility] Diagnoses Abnormal screening mammogram Procedures DWAIN DIAGNOSTIC RT DIAGNOSTIC MAMMOGRAPHY COMPUTER-AIDED DETCJ UNI Shar Enamorado MD [address] [place] [address] [facility] [address] [place] [address] Referral ID Status Reason Start Date Expiration Date V isits Requested Visits Authorized [id number] Closed Auto-Generate d Referral 05/05/2021 06/04/2022 1 1 Reason Onset Date Comments Yearly Exam 09/18/2021 Reason Onset Date Comments Population Health Navigation Outreach 09/23/2021 HCC Reason Comments Refill Request Reason Comments Patient Update Reason Comments Medicare Wellness Exam refills Reason Comments Mass Lump on R side mid b ack Reason Comments Consult Sebaceous cyst lower back Specialty Diagnoses / Procedures Referred By Contac t Referred To Contact General Surgery Diagnoses Skin lesion Sebaceous cyst Pure hypercholesterolemia Procedures CONSULT TO GENERAL SURGERY OFFICE/OUTPATIENT [facility] 60-74 MINUTES Micah High MD [address] [place] [address] Referral ID Status Reason Start Date Expiration Date V isits Requested Visits Authorized [id number] Closed PCP Requested Referral 12/05/2021 12/05/2022 1 1 Reason Comments Procedure Excision of skin cys t on back Reason Comments Cyst Reason Comments Recheck sleep anea, snoring, stops breathing while asleep Reason Comments Consult Sleep apnea/ stuffy nose/ tinnitus Specialty Diagnoses / Procedures Referred By Contac t Referred To Contact Ent - Otolaryngology Diagnoses Sleep apnea, unspecified type Stuffy nose Procedures CONSULT TO ENT OFFICE/OUTPATIENT [facility] 60-74 MINUTES Micah High MD [address] [place] [address] Referral ID Status Reason Start Date Expiration Date V isits Requested Visits Authorized [id number] Closed PCP Requested Referral 01/05/2022 01/05/2023 1 1 Reason Onset Date Comments Refill Request 02/15/2022 Reason Onset Date Comments Refill Request 04/14/2022 Reason Comments Follow Up refill needed Reason Comments insect bite right upper leg X 2 days Reason Onset Date Comments Yearly Exam 09/21/2022 Reason Comments Behavioral Health/Social Work Reason Comments Medicare Wellness Exam Annual Medicare W ellness Reason Onset Date Comments Refill Request 12/03/2022 Reason Comments Recheck 6 week follow up Reason Comments Radiology CT Specialty Diagnoses / Procedures Referred By Contac t Referred To Contact CT IMAGING Diagnoses Other specified disorders of nose and nasal sinuses Procedures CT SINUS WO IVCON CT MAXILLOFACIAL W/O CONTRAST MATERIAL Marylu Banks MD [address] [place] [address] [place] [id number] Referral ID Status Reason Start Date Expiration Date V isits Requested Visits Authorized [id number] Closed Auto-Generate d Referral 01/21/2022 02/20/2023 1 1 Reason Comments Covid Positive Reason Comments Cough Congestion, sore thr oat, sx went away and came back. Wheezing, worse at HS x4 days Reason Comments follow up with pneumonia , weak feeling past few days, stil Reason Onset Date Comments Refill Request 06/20/2023 Reason Comments F/U 6 months Reason Comments Cough Congestion sore thro at x3 weeks Reason Comments Yearly Exam Reason Comments Follow Up Reason Comments Left Knee Pain Reason Comments Trauma 2 tick bites x 3 day s Reason Comments New Bunion Pain Reason Comments Medicare Wellness Exam Reason Comments Appointment Specialty Diagnoses / Procedures Referred By Contac t Referred To Contact PHYSICAL THERAPY Diagnoses S46.812D (ICD-10-CM) - Strain of left levator scapulae muscle, subsequent encounter M54.2 (ICD-10-CM) - Cervicalgia Procedures S46.812D (ICD-10-CM) - Strain of left levator scapulae muscle, subsequent encounter M54.2 (ICD-10-CM) - Cervicalgia Micah High MD [address] [place] [address] Phone: tel: fax: [facility] [address] [place] [address] Phone: tel: fax: Reason Comments Insurance Authorization Reason Comments Recheck Stress and memory is sues feels over loaded Reason Onset Date Comments Results 06/08/2024 Reason Comments F/U 6 months Reason Comments Geriatrics Consult to Geriatric s Specialty Diagnoses / Procedures Referred By Tangela chavira Referred To Contact Gerontology Diagnoses Concern about memory Family history of Alzheimer disease Procedures CONSULT TO GERIATRICS OFFICE/OUTPATIENT [facility] MARYVALE HIGH [facility] 60 MINUTES Older, ODALIS Bledsoe.DIE TECHNICIAN [address] [place] [address] Phone: tel: fax: Referral ID Status Reason Start Date Expiration Date V isits Requested Visits Authorized [id number] Closed PCP Requested Referral 06/06/2024 06/05/2025 1 1 Care Teams (unrecognized sec tion and content) Patient Admitting Representative Relationship Specialty Start Date End Date Micah High MD [address] [place] [address] PCP - General Internal Medicine 06/01/17 Patient Admitting Representative Relationship Specialty Start Date End Date Micah High MD [address] [place] [address] PCP - General Internal Medicine 06/01/17 Patient Admitting Representative Relationship Specialty Start Date End Date Micah High MD [address] [place] [address] PCP - General Internal Medicine 06/01/17 Patient Admitting Representative Relationship Specialty Start Date End Date Micah High MD [address] [place] [address] PCP - General Internal Medicine 06/01/17 Patient Admitting Representative Relationship Specialty Start Date End Date Micah High MD [address] [place] [place] [address] PCP - General Internal Medicine 06/01/17 Patient Admitting Representative Relationship Specialty Start Date End Date Micah High MD [address] [place] [address] PCP - General Internal Medicine 06/01/17 Patient Admitting Representative Relationship Specialty Start Date End Date Micah High MD [address] [place] [address] PCP - General Internal Medicine 06/01/17 Patient Admitting Representative Relationship Specialty Start Date End Date Micah High MD [address] [place] [address] PCP - General Internal Medicine 06/01/17 Patient Admitting Representative Relationship Specialty Start Date End Date Micah High MD [address] [place] [place] [address] PCP - General Internal Medicine 06/01/17 Patient Admitting Representative Relationship Specialty Start Date End Date Micah High MD [address] [place] [address] PCP - General Internal Medicine 06/01/17 Patient Admitting Representative Relationship Specialty Start Date End Date Micah High MD [address] [place] [address] PCP - General Internal Medicine 06/01/17 Patient Admitting Representative Relationship Specialty Start Date End Date Micah High MD [address] [place] [address] PCP - General Internal Medicine 06/01/17 Patient Admitting Representative Relationship Specialty Start Date End Date Micah High MD [address] [place] [address] PCP - General Internal Medicine 06/01/17 Patient Admitting Representative Relationship Specialty Start Date End Date Micah High MD [address] [place] [address] PCP - General Internal Medicine 06/01/17 Patient Admitting Representative Relationship Specialty Start Date End Date Micah High MD [address] [place] [address] PCP - General Internal Medicine 06/01/17 Patient Admitting Representative Relationship Specialty Start Date End Date Micah High MD [address] [place] [address] PCP - General Internal Medicine 06/01/17 Patient Admitting Representative Relationship Specialty Start Date End Date Micah High MD [address] [place] [address] PCP - General Internal Medicine 06/01/17 Patient Admitting Representative Relationship Specialty Start Date End Date Micah High MD [address] [place] [address] PCP - General Internal Medicine 06/01/17 Patient Admitting Representative Relationship Specialty Start Date End Date Micah High MD [address] [place] [address] PCP - General Internal Medicine 06/01/17 Patient Admitting Representative Relationship Specialty Start Date End Date Micah High MD [address] [place] [address] PCP - General Internal Medicine 06/01/17 Patient Admitting Representative Relationship Specialty Start Date End Date Micah High MD [address] [place] [address] PCP - General Internal Medicine 06/01/17 Patient Admitting Representative Relationship Specialty Start Date End Date Micah High MD [address] [place] [address] PCP - General Internal Medicine 06/01/17 Patient Admitting Representative Relationship Specialty Start Date End Date Micah High MD [address] [place] [place] [address] PCP - General Internal Medicine 06/01/17 Patient Admitting Representative Relationship Specialty Start Date End Date Micah High MD [address] [place] [address] PCP - General Internal Medicine 06/01/17 Patient Admitting Representative Relationship Specialty Start Date End Date Micah High MD [address] [place] [address] PCP - General Internal Medicine 06/01/17 Patient Admitting Representative Relationship Specialty Start Date End Date Micah High MD [address] [place] [address] PCP - General Internal Medicine 06/01/17 Patient Admitting Representative Relationship Specialty Start Date End Date Micah High MD [address] [place] [address] PCP - General Internal Medicine 06/01/17 Patient Admitting Representative Relationship Specialty Start Date End Date Micah High MD [address] [place] [address] PCP - General Internal Medicine 06/01/17 Patient Admitting Representative Relationship Specialty Start Date End Date Micah High MD [address] [place] [address] PCP - General Internal Medicine 06/01/17 Patient Admitting Representative Relationship Specialty Start Date End Date Micah High MD [address] [place] [address] PCP - General Internal Medicine 06/01/17 Patient Admitting Representative Relationship Specialty Start Date End Date Micah High MD [address] [place] [address] PCP - General Internal Medicine 06/01/17 Patient Admitting Representative Relationship Specialty Start Date End Date Micah High MD [address] [place] [address] PCP - General Internal Medicine 06/01/17 Patient Admitting Representative Relationship Specialty Start Date End Date Micah High MD [address] [place] [address] PCP - General Internal Medicine 06/01/17 Patient Admitting Representative Relationship Specialty Start Date End Date Micah High MD [address] [place] [address] PCP - General Internal Medicine 06/01/17 Patient Admitting Representative Relationship Specialty Start Date End Date Micah High MD [address] [place] [address] PCP - General Internal Medicine 06/01/17 Patient Admitting Representative Relationship Specialty Start Date End Date Micah High MD [address] [place] [address] PCP - General Internal Medicine 06/01/17 Patient Admitting Representative Relationship Specialty Start Date End Date Micah High MD [address] [place] [address] PCP - General Internal Medicine 06/01/17 Patient Admitting Representative Relationship Specialty Start Date End Date Micah High MD [address] [place] [address] PCP - General Internal Medicine 06/01/17 Patient Admitting Representative Relationship Specialty Start Date End Date Micah High MD [address] [place] [address] PCP - General Internal Medicine 06/01/17 Patient Admitting Representative Relationship Specialty Start Date End Date Micah High MD [address] [place] [address] PCP - General Internal Medicine 06/01/17 Patient Admitting Representative Relationship Specialty Start Date End Date Micah High MD [address] [place] [address] PCP - General Internal Medicine 06/01/17 Patient Admitting Representative Relationship Specialty Start Date End Date Micah High MD [address] [place] [address] PCP - General Internal Medicine 06/01/17 Patient Admitting Representative Relationship Specialty Start Date End Date Micah High MD [address] [place] [address] PCP - General Internal Medicine 06/01/17 Patient Admitting Representative Relationship Specialty Start Date End Date Micah High MD [address] [place] [address] PCP - General Internal Medicine 06/01/17 Patient Admitting Representative Relationship Specialty Start Date End Date Micah High MD [address] [place] [address] PCP - General Internal Medicine 06/01/17 Patient Admitting Representative Relationship Specialty Start Date End Date Micah High MD [address] [place] [address] PCP - General Internal Medicine 06/01/17 Patient Admitting Representative Relationship Specialty Start Date End Date Micah High MD [address] [place] [address] PCP - General Internal Medicine 06/01/17 Patient Admitting Representative Relationship Specialty Start Date End Date Micah High MD [address] [place] [address] PCP - General Internal Medicine 06/01/17 Patient Admitting Representative Relationship Specialty Start Date End Date Micah High MD [address] [place] [address] PCP - General Internal Medicine 06/01/17 Kendra Orellana PA-C [address] [place] [address] [facility] 02/12/24 Ladi Almanza APRN.DIE TECHNICIAN [address] [place] [address] [facility] 02/12/24 Jeri Jansen PA-C [address] [place] [address] [facility] 02/12/24 Patient Admitting Representative Relationship Specialty Start Date End Date Micah High MD [address] [place] [address] PCP - General Internal Medicine 06/01/17 Kendra Orellana PA-C [address] [place] [address] [facility] 02/12/24 Ladi Almanza APRN.DIE TECHNICIAN [address] [place] [address] [facility] 02/12/24 Jeri Jansen PA-C [address] [place] [address] [facility] 02/12/24 Patient Admitting Representative Relationship Specialty Start Date End Date Micah High MD [address] [place] [address] PCP - General Internal Medicine 06/01/17 Kendra Orellana PA-C [address] [place] [address] [facility] 02/12/24 Ladi Almanza APRN.DIE TECHNICIAN [address] [place] [address] [facility] 02/12/24 Jeri Jansen PA-C [address] [place] [address] [facility] 02/12/24 Patient Admitting Representative Relationship Specialty Start Date End Date Micah High MD [address] [place] [address] PCP - General Internal Medicine 06/01/17 Kendra Orellana PA-C [address], [place] [address] [phone] [facility] Ladi Almanza APRN.DIE TECHNICIAN [address] [place] [address] [facility] 02/12/24 Jeri Jansen PA-C [address] [place] [address] [facility] 02/12/24 Patient Admitting Representative Relationship Specialty Start Date End Date Micah High MD [address] [place] [address] PCP - General Internal Medicine 06/01/17 Kendra Orellana PA-C [address] [place] [address] [facility] 02/12/24 Ladi Almanza APRN.DIE TECHNICIAN [address] [place] [address] [facility] 02/12/24 Jeri Jansen PA-C [address] [place] [address] [facility]/12[facility]24 Patient Admitting Representative Relationship Specialty Start Date End Date Micah High MD [address] [place] [address] PCP - General Internal Medicine 06/01/17 Kendra Orellana PA-C [address] [place] [address] [facility] 02/12/24 Ladi Almanza APRN.DIE TECHNICIAN [address] [place] [address] [facility] [employer] 02/12/24 Jeri Jansen PA-C [facility] [place] [address] [facility]/12/24 Patient Admitting Representative Relationship Specialty Start Date End Date Micah High MD [address] [place] [address] PCP - General Internal Medicine 06/01/17 Kendra Orellana PA-C [address] [place] [address] [employer] [facility] 02/12/24 Ladi Almanza APRN.DIE TECHNICIAN [address] [place] [address] [facility] 02/12/24 Jeri Jansen PA-C [address] [place] [address] [facility]/12/24 Patient Admitting Representative Relationship Specialty Start Date End Date Micah High MD [address] [facility] [place] [address] PCP - General Internal Medicine 06/01/17 Kendra Orellana PA-C [address] [place] [address] [facility] 02/12/24 Ladi Almanza, CORPORATE CONTROLLER.DIE TECHNICIAN [address] [place] [address] [facility] Internal Medicine 02/12/24 Jeri Jansen PA-C [address] [place] [address] [facility] 02/12/24 Patient Admitting Representative Relationship Specialty Start Date End Date Micah High MD [address] [facility] [address] PCP - General Internal Medicine 06/01/17 Kendra Orellana PA-C [address] [place] [address] [facility] 02/12/24 Ladi Almanza, CORPORATE CONTROLLER.DIE TECHNICIAN [address] [place] [address] [facility] Internal Medicine 02/12/24 Jeri Jansen PA-C [address] [place] [address] [facility] 02/12/24 Team Status: Active Member Role Status Dates Dr. Micah High MD Primary Care Provider Active Team Status: Inactive Member Role Status Dates Dr. Micah High MD Primary Care Provider Active Start: May 10, 2024 End: May 10, 2024 Dr. Kartik Bello MD Emergency Provider Active S tart: May 10, 2024 End: May 10, 2024 Patient Admitting Representative Relationship Specialty Start Date End Date Micah High MD [address] [place] [address] PCP - General Internal Medicine 06/01/17 Older, Ladi, CORPORATE CONTROLLER.DIE TECHNICIAN [address] [place], [place] [address] [facility] 02/12/24 Patient Admitting Representative Relationship Specialty Start Date End Date Micah High MD [address] [place] [address] PCP - General Internal Medicine 06/01/17 Archie, Ladi, CORPORATE CONTROLLER.DIE TECHNICIAN [address] [place] [address] [facility] 02/12/24 Patient Admitting Representative Relationship Specialty Start Date End Date Micah High MD [address] [place] [address] PCP - General Internal Medicine 06/01/17 Older, Ladi, CORPORATE CONTROLLER.DIE TECHNICIAN [address] [place] [address] [facility] 02/12/24 Patient Admitting Representative Relationship Specialty Start Date End Date Micah High MD [address] [place] [address] PCP - General Internal Medicine 06/01/17 Ladi Almanza APRN.DIE TECHNICIAN [address] [place] [address] [facility] 02/12/24 Patient Admitting Representative Relationship Specialty Start Date End Date Micah High MD [address] [place] [address] PCP - General Internal Medicine 06/01/17 Ladi Almanza APRN.DIE TECHNICIAN [address] [place] [address] [facility] 02/12/24 Patient Admitting Representative Relationship Specialty Start Date End Date Micah High MD [address] [place] [address] PCP - General Internal Medicine 06/01/17 Ladi Almanza APRN.DIE TECHNICIAN [address] [place] [address] [facility] [employer] [facility] 02/12/24 Patient Admitting Representative Relationship Specialty Start Date End Date Micah High MD [address] [place] [address] PCP - General Internal Medicine 06/01/17 Ladi Almanza APRN.DIE TECHNICIAN [address] [place] [address] [facility] Internal Medicine 02/12/24 Patient Admitting Representative Relationship Specialty Start Date End Date Micah High MD [address] [place] [address] PCP - General Internal Medicine 06/01/17 Ladi Almanza, CORPORATE CONTROLLER.DIE TECHNICIAN [address] [place] [address] [facility] 02/12/24 Patient Admitting Representative Relationship Specialty Start Date End Date Micah High MD [address] [place] [address] PCP - General Internal Medicine 06/01/17 Ladi Almanza, CORPORATE CONTROLLER.DIE TECHNICIAN [address] [place] [address] [facility] 02/12/24 Patient Admitting Representative Relationship Specialty Start Date End Date Micah High MD [address] [place] [address] PCP - General Internal Medicine 06/01/17 Ladi Almanza, CORPORATE CONTROLLER.DIE TECHNICIAN [address] [place], [place] [address] [facility] 02/12/24 Team Status: Active Member Role/Relationship Status Dates Dr. Micah High MD Primary care physician Active Team Status: Inactive Member Role/Relationship Status Dates Dr. Micah High MD Primary care physician Active Start: December 06, 2024 End: December 06, 2024 Dr. Apolinar Finley DO Emergency Department Physician Active Start: December 06, 2024 End: December 06, 2024 Goals (unrecognized section and content) Goals may be documented in a n alternate sectionGoals may be documented in an alternate section FOR RECORDS PERTAINING TO PATIENTS WHO ARE OR HAVE BEEN ENROLLED IN A CHEMICAL DEPENDENCY/SUBSTANCEABUSE PROGRAM, SOME INFORMATION MAY BE OMITTED. This clinical summary was aggregated from multiple sources. Caution should be exercised in using it in the provision of clinical care. This summary normalizes information from multiple sources, and as a consequence, information in this document may materially change the coding, format and clinical context of patient data. In addition, data may be omitted in some cases. CLINICAL DECISIONS SHOULD BE BASED ON THE PRIMARY CLINICAL RECORDS. [facility]. provides no warranty or guarantee of the accuracy or completeness of information in this document.
[2024-12-09 09:00] VITALS: BP 128/70; PULSE 66; RESP 16; TEMP 36.8; O2SAT 99
== END 2024-12-09 09:03 | disposition home or self-care (01) ==
PROVIDERS: Emergency Provider Emergency Medicine; PCP Internal Medicine; Visit Provider Emergency Medicine
DX: J18.9 Pneumonia, unspecified organism (principal); R19.7 Diarrhea, unspecified; R03.0 Elevated blood-pressure reading, without diagnosis of hypertension; E78.00 Pure hypercholesterolemia, unspecified
CPT/HCPCS: 99281